=== PATIENT | female | born 1990 | race Caucasian/White ===

== ENCOUNTER 2018-04-28 07:16 | Outpatient (RCR) | payer MEDICAID, SELFPAY ==
--- NOTE | 2018-04-28 08:02 | PTTR_ITS ---
DATE: 04/28/18 SUBJECTIVE: Lori complains of intermittent fascial pain which is generally occurs when she is stressed and complaints with yawning and pain with yawning or chewing. Her boyfriend does not note that she is grinding during the night. 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 OBJECTIVE: She saw Dr. Diggs recently and he encouraged her to continue to wear her oral splint including when she is eating. Manual therapy: ([id number]). Her cervical spine movements are non irritable with some mild end range drawing throughout the corresponding soft tissue stretch. OA flexion +10* and her mandibular opening is 40 mm with some mild mandibular deviation to the (R) at end range. Protrusion is non painful. Side gliding to the (R) with some mild (R) fascial discomfort. She has some increased tone throughout the (L) sub occipital area otherwise non tender throughout the cervical region. She is hypomobile with PA glides to the thoracic spine. Her teratoids and masseters are hyper tonic (B) and I clear theses with marques strain counter strain techniques and show her how to perform this at home. I also clear out the cervical spine with manual traction, segmental gliding and AAROM, muscle energy techniques and side bending rotation. Direct treatment time: 35 minutes Total treatment time: 35 minutes ASSESSMENT: I have not seen Olya for at least 6 weeks now and she has been doing relatively well since when I saw her in the past. She practices yoga on youtube a couple times per week and I encourage her to continue to perform this along with some meditation and some diaphragmatic breathing and core strengthening exercises. PLAN: As noted above have her call if she needs further assistance.
== END 2018-05-20 23:59 | disposition home or self-care (01) ==
LOC: PT 07:16
PROVIDERS: PCP Internal Medicine; Referring Provider Dentist Oral and Maxillofacial Pathology; Visit Provider Dentist Oral and Maxillofacial Pathology
DX: M24.10 Other articular cartilage disorders, unspecified site (principal); M79.1 Myalgia
CPT/HCPCS: 97140

== ENCOUNTER 2018-12-07 15:34 | Emergency (ER) | payer OTHER, SELFPAY ==
[2018-12-07 15:38] VITALS: BP 122/65; PULSE 68; RESP 12; TEMP 37.3; O2SAT 98
--- NOTE | 2018-12-07 15:51 | ED.GENADUL_ITS ---
Discharge Plan Disposition Patient Disposition: HOME Condition: Improving Discharge Details Chief Complaint: Orthopedic Clinical Impression: Closed fracture distal radius and ulna Primary Care Provider: Sky Jensen ED Provider: Kenneth Colorado Home Meds and New Rx's Prescriptions: No Action dextroamphetamine-amphetamine [Adderall] 10 MG tablet 10 mg PO DAILY RF: 0 calcium carbonate [Tums] 200 MG tablet,chewable 200 mg PO PRN PRNRF: 0 Discharge Instructions Instructions: Wrist Fracture in Adults (ED) Additional Instructions: 1. Drink plenty of fluids. 2. Continue all medications as prescribed. 3. Acetaminophen 1000mg every 4 hours (up to 5 time a day) and/or ibuprofen 600mg every 6 hours as needed for fever or pain. 4. Wear splint until orthopedic evaluation. Ice and elevate arm when possible. 5. Follow-up tomorrow with orthopedics Return to the Emergency Department (ED) if your condition worsens, does not improve as expected, or for ANY other concerns. Specifically, return if you have new or uncontrolled pain, worsening fever, difficulty breathing, vomiting, or are unable to drink fluids. Referrals: Steve Rios MD [ [facility] STAFF PHYSICIAN] - Discharge Data Discharge Date/Time-TO BE ENTERED AT DEPARTURE: 12/07/18 16:55 Medical Decision Making Presents for evaluation of an isolated injury to the left wrist after falling while snowboarding. Exam and imaging significant for a nondisplaced distal radius fracture and ulnar styloid fracture. Placed in a plaster volar splint with dorsal slab. Discharge the plan for OTC analgesia, ice/elevation, and outpatient orthopedic follow-up. Pt evaluated immediately prior to discharge with improved symptoms, normal vital signs, and tolerating PO. The patient feels appropriate for discharge home. Discussed clinical/diagnostic findings. Discharged with a clear plan for outpatient follow up. Given usual and customary return instructions prior to discharge. Medical Records Medical records reviewed: Yes I reviewed the patient's medical records. Imaging Data Radiologic Study: Attestation: I personally reviewed and interpreted this imaging study as follows: Imaging: X-Ray (Left wrist) My impression: Nondisplaced fractures of distal radius and the tip of the ulnar styloid. Interpreted independently and contemporaneously by myself Radiologist's impression: Same HPI 28-year-old with a history of GERD, ADHD. Presents with left wrist pain after falling while snowboarding. He was helmeted and denies significant head injury, neck pain, back pain, or other extremity injury. Has significant pain and swelling on the radial aspect of the left wrist with mild subjective pain along the ulnar forearm. Denies significant elbow or shoulder pain. Denies loss of motion or loss of sensation distally although she notes increased distal radius pain with finger flexion/extention. General Date/Time Provider Initiated Documentation: 12/07/18 15:46 . Related Data Home Medications Medication Instructions Recorded Confirmed dextroamphetamine-amphetamine 10 mg PO DAILY tab-cap NS 10/29/14 12/07/18 [Adderall 10 Mg Tablet] calcium carbonate [Tums] 200 mg PO PRN PRN 11/09/14 12/07/18 Allergies Allergy/AdvReac Type Severity Reaction Status Date / Time kiwi Allergy Severe Hives Unverified 12/07/18 15:42 lidocaine Allergy Severe Itching Unverified 12/07/18 15:42 adhesive Allergy Intermediate Topical Unverified 12/07/18 15:42 Irritation lactose Allergy Unknown Unverified 12/07/18 15:42 ibuprofen AdvReac Intermediate bloody nose Unverified 12/07/18 15:42 General Stated Complaint: Orthopedic JUSTO: 4 Review of Systems Review of Systems All systems reviewed & are unremarkable except as noted in HPI and below Musculoskeletal Reports deformity (Mild swelling at the distal radial wrist), Reports joint swelling (Radial left wrist) and Reports limited range of motion PFSH Medical History ADHD (attention deficit hyperactivity disorder) GERD (gastroesophageal reflux disease) Surgical History Dilation and curettage Ligation of fallopian tube Glenn Fundoplication Social History Smoking/Tobacco Use Status: Current every day Drug use: Occasionally Do you feel safe at home: Yes Do you feel safe in your relationship?: Yes Exam Narrative Exam Narrative: Nursing note and vital signs have been reviewed and noted. GENERAL: alert, active, no acute distress, well -hydrated, well-nourished HEENT: atraumatic/normocephalic, PERRLA, EOMI, conjunctiva clear, external ears/canals normal, nasal mucosa normal NECK: supple, full range of motion CARDIOVASCULAR: nl pulses, no edema PULMONARY: nl effort, no audible wheezing or stridor ABDOMEN: non-distended EXTREMITY: normal muscle tone, all joints with FROM and no deformity except for the left wrist: Local swelling and tenderness at the distal radius. No significant dorsal deformity of the wrist. Mild tenderness along the mid ulna with no significant ecchymosis, abrasion, or deformity. No elbow or shoulder tenderness. Normal neurovascular exam distal to the injury. NUERO: normal mentation, moving all extremities, normal stance and gait, PSYCH: alert and oriented SKIN: no new rashes or lesions Course Vital Signs Temperature 99.1 F 12/07/18 15:38 Pulse 68 12/07/18 15:38 Respiratory Rate 12 12/07/18 15:38 Blood Pressure 122/65 12/07/18 15:38 Pulse Oximetry 98 12/07/18 15:38 Temperature 99.1 F 12/07/18 15:38 Temperature Source Temporal Artery Scan 12/07/18 15:38 Pulse 68 12/07/18 15:38 Respiratory Rate 12 12/07/18 15:38 Respiratory Effort Non-Labored 12/07/18 15:41 Blood Pressure 122/65 12/07/18 15:38 Blood Pressure Position Sitting 12/07/18 15:38 Pulse Oximetry 98 12/07/18 15:38 Oxygen Delivery Method Room Air 12/07/18 15:38 Oxygen Flow Rate 0 12/07/18 15:38 Pain Level 8 12/07/18 15:38 Procedures Orthopedic Splinting/Casting Injury #1: Side: left Upper Extremity Injury Location: wrist Upper Extremity Immobilizer: sling/shoulder immobilizer (sling) and volar spint (With dorsal slab; plaster and Webril)
--- NOTE | 2018-12-07 15:52 | DI.RAD_ITS ---
SYMPTOM/DIAGNOSIS: FELL, PAIN, SWELLING LEFT WRIST: There is a nondisplaced fracture involving the distal radius and ulnar styloid. There is no dislocation. LEFT FOREARM: The images reveal a nondisplaced intra-articular fracture of the distal radius and a nondisplaced fracture of the tip of the ulnar styloid.
[2018-12-07] MEDS: Acetaminophen 500 MG TAB 1000 MG PO (16:05)
--- NOTE | 2018-12-07 16:16 | DI.VRAD_ITS ---
EXAM: XR Left Forearm, 2 Views EXAM DATE/TIME: 12/07/2018 3:56 PM CLINICAL HISTORY: 28 years old, female; Pain; Wrist; Left; Patient HX: Left wrist pain after fall while skiing today. Pain and swelling left wrist. TECHNIQUE: Imaging protocol: XR Left forearm 2 views. COMPARISON: No relevant prior studies available. FINDINGS: Bones/joints: Nondisplaced fracture of the distal radius with intra-articular extension. Nondisplaced fracture of the tip of the ulnar styloid. Soft tissues: Swelling of the wrist soft tissues. IMPRESSION: Nondisplaced fractures of the distal radius and ulnar styloid. Dictated and Authenticated by: Papi West MD. Ordering:GUERRERO Cooper MD
--- NOTE | 2018-12-07 16:17 | DI.VRAD_ITS ---
EXAM: XR Left Wrist Complete, 3 or more Views EXAM DATE/TIME: 12/07/2018 3:56 PM CLINICAL HISTORY: 28 years old, female; Pain; Wrist; Left; Patient HX: Left wrist pain after fall while skiing today, pain and swelling. TECHNIQUE: Imaging protocol: XR Left wrist 3 or more views. COMPARISON: No relevant prior studies available. FINDINGS: Bones/joints: Nondisplaced fracture of the distal radius metaphysis with extension into the distal radius articular surface. Nondisplaced fracture of the tip of the ulnar styloid. Soft tissues: Swelling of the wrist soft tissues. IMPRESSION: Nondisplaced fractures of the distal radius and tip of the ulnar styloid. Dictated and Authenticated by: Papi West MD. Ordering:GUERRERO Cooper MD
--- NOTE | 2018-12-07 16:57 | NUR.NOTE ---
patient refused splint.
== END 2018-12-07 16:55 | disposition home or self-care (01) ==
PROVIDERS: Emergency Provider Emergency Medicine; PCP Internal Medicine
DX: S52.515A Nondisplaced fracture of left radial styloid process, initial encounter for closed fracture (principal); S52.592A Other fractures of lower end of left radius, initial encounter for closed fracture; V00.311A Fall from snowboard, initial encounter
CPT/HCPCS: 25600; 73090; 73110

== ENCOUNTER 2019-01-03 10:07 | Outpatient (CLI) | payer OTHER, SELFPAY ==
--- NOTE | 2019-01-03 09:55 | DI.RAD_ITS ---
SYMPTOM/DIAGNOSIS: F/U FRACTURE LEFT WRIST: A nondisplaced fracture of the distal radial metaphysis enters the radial carpal joint. The carpal bones appear intact.
== END 2019-01-03 10:27 ==
PROVIDERS: PCP Internal Medicine; Visit Provider Orthopaedic Surgery
DX: S52.515D Nondisplaced fracture of left radial styloid process, subsequent encounter for closed fracture with routine healing (principal)
CPT/HCPCS: 73110

== ENCOUNTER 2020-07-01 12:04 | Outpatient (REF) | payer MEDICAID, SELFPAY ==
[2020-07-04 15:21] LABS: Patient Race White; SARS-CoV-2 RNA Undetected (Undetected); SARS-CoV-2 Specimen Source Nasal
== END 2020-07-01 12:24 ==
LOC: NCHCN 12:04
PROVIDERS: PCP Internal Medicine; Visit Provider Physician Assistant
DX: Z11.59 Encounter for screening for other viral diseases (principal)
CPT/HCPCS: U0003

== ENCOUNTER 2020-07-25 10:26 | Outpatient (REF) | payer MEDICAID, SELFPAY ==
[2020-07-28 11:39] LABS: SARS-CoV-2 RNA Not Detected (NotDetected); SARS-CoV-2 RNA Source Nasal/Nares
== END 2020-07-25 10:46 ==
LOC: NCHCN 10:26
PROVIDERS: PCP Internal Medicine; Visit Provider Nurse Practitioner Family
DX: Z20.828 Contact with and (suspected) exposure to other viral communicable diseases (principal)
CPT/HCPCS: U0003

== ENCOUNTER 2020-09-25 14:50 | Outpatient (REF) | payer MEDICAID, SELFPAY ==
[2020-09-27 09:44] LABS: COVID-19 RT-PCR Result NEGATIVE (Negative)
== END 2020-09-25 15:10 ==
LOC: NCHCN 14:50
PROVIDERS: PCP Internal Medicine; Visit Provider Physician Assistant
DX: Z20.828 Contact with and (suspected) exposure to other viral communicable diseases (principal)
CPT/HCPCS: U0003

== ENCOUNTER 2021-06-09 03:56 | Outpatient (CLI) | payer MEDICAID, SELFPAY ==
--- NOTE | 2021-06-10 12:46 | W.PFT ---
Date of service: 06/09/21 Time of Service: 10:19 Pulmonary Function Test Result Requesting Provider Milka Monge Indications: N95 fit test clearance Interpretation Spirometry: There is no airflow limitation Impression Normal spirometry Clinical Correlation therefore is recommended.
== END 2021-06-09 03:57 | disposition home or self-care (01) ==
PROVIDERS: PCP Internal Medicine; Visit Provider Nurse Practitioner Family
DX: Z46.89 Encounter for fitting and adjustment of other specified devices (principal)
CPT/HCPCS: 94010

== ENCOUNTER 2021-06-09 20:00 | Outpatient (REF) | payer MEDICAID, SELFPAY ==
[2021-06-11 17:14] LABS: COVID-19 RT-PCR UVMMC Result Negative (Negative)
== END 2021-06-09 20:01 | disposition home or self-care (01) ==
LOC: LBN 20:00
PROVIDERS: PCP Internal Medicine; Visit Provider Physician Assistant
DX: Z20.822 Contact with and (suspected) exposure to COVID-19 (principal)
CPT/HCPCS: U0003

== ENCOUNTER 2021-06-16 19:29 | Outpatient (REF) | payer MEDICAID, SELFPAY ==
[2021-06-18 15:45] LABS: COVID-19 RT-PCR UVMMC Result Negative (Negative)
== END 2021-06-16 19:30 | disposition home or self-care (01) ==
LOC: NCHCN 19:29
PROVIDERS: PCP Internal Medicine; Visit Provider Physician Assistant
DX: Z20.822 Contact with and (suspected) exposure to COVID-19 (principal)
CPT/HCPCS: U0003

== ENCOUNTER 2021-08-29 07:35 | Emergency (ER) | payer MEDICAID, SELFPAY ==
[2021-08-29 07:43] VITALS: BP 125/82; PULSE 60; TEMP 36.9; O2SAT 99
[2021-08-29 08:02] LABS: Bilirubin Negative (Negative); Blood Trace-intact (Negative); Clarity Clear (Clear); Glucose Negative (Negative); Ketones Negative (Negative); Leukocyte Esterase Trace (Negative); Nitrite Negative (Negative); Specific Gravity >= 1.030 (1.005-1.025); Urobilinogen 0.2 EU/dL (Up TO 0.2)
--- NOTE | 2021-08-29 08:02 | DI.US_ITS ---
Exam(s) US ABDOMEN LIMITED EXAM: US ABDOMEN LIMITED CLINICAL HISTORY: RUQ/Epoigastric pain TECHNIQUE: Ultrasound abdomen performed using standard protocol. COMPARISON: No exams were available for comparison FINDINGS: PANCREAS: Normal where visualized. LIVER: Normal. Hepatopedal flow in the Portal Vein. The liver measures 16 cm long. GALLBLADDER: No evidence of cholelithiasis. No evidence of wall thickening. No pericholecystic fluid identified. BILIARY SYSTEM: Common bile duct measures < 7 mm. No intrahepatic biliary ductal dilation. RAHMAN'S SIGN: Negative. Right kidney: Right kidney is a normal configuration. No evidence of renal calculi. No evidence of h ydronephrosis. No renal mass or cyst identified. ASCITES: None seen. IMPRESSION: Normal right upper quadrant ultrasound. DATA REPOSITORY:
--- NOTE | 2021-08-29 08:05 | ED.GENADUL_ITS ---
Discharge Plan Disposition Patient Disposition: HOME Condition: Improving Discharge Details Clinical Impression: Acute epigastric pain Primary Care Provider: Sky Jensen ED Provider: Italo Maxwell Home Meds and New Rx's Prescriptions: New pantoprazole [Protonix] 20 mg tablet,delayed release (DR/EC) 20 mg PO BID 14 Days Qty: 28 RF: 0 Discharge Instructions Instructions: Abdominal Pain (ED) Additional Instructions: We will ask our care management team to arrange a follow-up for you in general surgery clinic next week. Observe a bland diet; avoiding fatty, fried, spicy, heavy protein dishes. Take Protonix as prescribed twice daily. You may also use Tums if needed for persistent discomfort. These may turn your stool black. Return develop a fever, persistent and recurrent abdominal pain, vomiting, or any other acute concerns. Medical Decision Making 31-year-old female presents from home. She has had 3 to 4 days of intermittent episodes of epigastric and right upper quadrant abdominal pain that is mostly worsened/brought on by eating. She has been nauseated but without significant emesis. She has not had a fever or chills. She is immunized against COVID-19, worse on the inpatient wards, denies respiratory symptoms. Patient is status post appendectomy, hiatal hernia repair, ligation of fallopian tubes. She arrives pleasant, alert and interactive, afebrile. Her exam reveals right upper quadrant and epigastric biliary colic, cholecystitis, GERD. Patient IV access established, given parenteral analgesia, antiemetic and PPI. Referred for right upper quadrant/abdominal ultrasound. Patient's labs are reassuring and without significant finding including normal CBC, comprehensive panel and lipase. Urinalysis appears contaminated. CT imaging was obtained after ultrasound unremarkable. The CT is also unremarkable. Patient is improved following medications. Discussed with patient I feel this is either gastritis or akinesis of the gallbladder. We will arrange for follow-up in surgery clinic for recheck and I will place her on 2 weeks of twice daily PPI. She will observe a bland diet and return for repeat evaluation should she have recurrent pain, fever, or any other acute concerns. HPI General Mode of arrival: ambulatory . Date/Time Provider Initiated Documentation: 08/29/21 07:50 . Limitations to Documentation: no limitations . Information obtained by: patient . History of Present Illness 31 year old F presents to the emergency department with the chief complaint of Right upper quadrant pain, described as moderate, and is localized to the abdomen. Patient reports no radiation. Patient started experiencing this day(s) and it has been intermittent. No relieving factors improve symptom(s), Eating worsens symptoms . Patient notes loss of appetite and other (Nauseated); denies fever/chills. Patient did receive the following treatments prior to arrival, none Related Data Home Medications Medication Instructions Recorded Confirmed pantoprazole [Protonix] 20 mg PO BID 14 Days #28 tab 08/29/21 Previous Rx's Medication Instructions Recorded pantoprazole [Protonix] 20 mg PO BID 14 Days #28 tab 08/29/21 Allergies Allergy/AdvReac Type Severity Reaction Status Date / Time kiwi Allergy Severe Hives Unverified 08/29/21 07:48 lidocaine Allergy Severe Itching Unverified 08/29/21 07:48 adhesive Allergy Intermediate Topical Unverified 08/29/21 07:48 Irritation lactose Allergy Unknown Unverified 08/29/21 07:48 ibuprofen AdvReac Intermediate bloody nose Unverified 08/29/21 07:48 General Stated Complaint: Abd Prob JUSTO: 3 Review of Systems Narrative: No fever or chills. No cough, change to taste or smell. 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 Immunized against. 8 systems reviewed and otherwise negative PFSH All Active Problems (Updated 08/29/21 @ 10:17 by Italo Maxwell MD) Acute epigastric pain (Acute) Closed nondisplaced fracture of styloid process of left radius (Acute) Medical History (Updated 08/29/21 @ 10:17 by Italo Maxwell MD) ADHD (attention deficit hyperactivity disorder) GERD (gastroesophageal reflux disease) Surgical History (Updated 08/29/21 @ 08:06 by Italo Maxwell MD) Dilation and curettage Ligation of fallopian tube Glenn Fundoplication S/P appendectomy Social History Smoking/Tobacco Use Status: Former Tobacco Use Smoking risk assessment performed?: Yes Alcohol Intake: current Alcohol Intake frequency: holidays/special occasions only Alcohol type: beer Drug use: Occasionally Substance use type: marijuana Do you feel safe at home: Yes Do you feel safe in your relationship?: Yes Exam Narrative Exam Narrative: GEN: awake, alert, oriented 3. Pleasant, well groomed, interactive. HEAD: Normocephalic, atraumatic ENT: Mucous membranes moist, oropharynx unremarkable, External ear exam unremarkable EYES: PERRL, EOMI NECK: Full ROM, no KAYLA, no menigismus CHEST/RESP: Nontender, clear to auscultation bilateral, no wheeze/rhonchi/rales CARDIOVASCULAR: RRR, no murmur, rub jessica. 2+ Rad pulse bilateral ABDOMEN: Soft, epigastric and right upper quadrant tenderness. Cessation of breathing with deep inspiration due to pain, no mass. +Bowel sounds EXT: Full ROM, no edema, no rash Neuro: Grossly normal neurologic exam, conversant, interactive. Psych: Speech fluent, thoughts congruent, affect normal Course Vital Signs Vital signs: Vital Signs Temperature 36.9 C 08/29/21 07:43 Pulse 60 08/29/21 07:43 Blood Pressure 125/82 08/29/21 07:43 Pulse Oximetry 99 08/29/21 07:43 Temperature 36.9 C 08/29/21 07:43 Temperature Source Temporal Artery Scan 08/29/21 07:43 Pulse 60 08/29/21 07:43 Respiratory Effort Non-Labored 08/29/21 07:46 Blood Pressure 125/82 08/29/21 07:43 Blood Pressure Position Sitting 08/29/21 07:43 Pulse Oximetry 99 08/29/21 07:43 Oxygen Delivery Method Room Air 08/29/21 07:43 Oxygen Flow Rate 0 08/29/21 07:43 Pain Level 6 08/29/21 07:43 Lab/Test Results Lab/Test Results: Laboratory Tests Range/Units 08/29/21 07:53 Urine Color (Yellow) Yellow Urine Clarity (Clear) Clear Urine pH (5-8) 7.0 Ur Specific [place] (1.005-1.025) >= 1.030 H Urine Protein (Negative) mg/dL Negative Urine Ketones (Negative) mg/dL Negative Urine Blood (Negative) Trace-intact H Urine Nitrite (Negative) Negative Urine Bilirubin (Negative) Negative Urine Urobilinogen (Up TO 0.2) EU/dL 0.2 Ur Leukocyte Esterase (Negative) Trace H Urine Glucose (Negative) mg/dL Negative POC- Test(urine) Negative PAWSS Have you Been Recently Intoxicated or Drunk Within the Last 30 days?: No Have you Ever Experienced Previous Episodes of Alcohol Withdrawal?: No Have you ever Experienced Withdrawal Seizures?: No Have you ever Experienced Delirium Tremens(DT)s?: No Have you ever undergone Alcohol Rehabilitation Treatment (i.e, inpt ot outpatient treatment programs)?: No Have you ever Experienced Blackouts?: No Have you ever Combined Alcohol with other Downers within the last 90 days?: No Have you ever Combined Alcohol with any other Substance of Abuse during the last 90 days?: No Positive Blood Alcohol level on Presentation? [PCS.BAL]: No Evidence of Increased Autonomic Activity (i.e. HR>120, tremor, sweating, agitation, nausea)?: No Result: 0
[2021-08-29 08:10] LABS: Bacteria Few HPF (Negative); Crystals Negative HPF (Negative); Epithelial Cells Moderate HPF (Negative); Mucus Trace (Negative); RBC 0-2 HPF (0-2); WBC 0-2 HPF (0-5)
[2021-08-29 08:11] LABS: C & S Indicated? No; Casts Negative LPF (Negative)
[2021-08-29] MEDS: Normal Saline 1,000 ML 1000 ML IV (08:25)
[2021-08-29] MEDS: Pantoprazole 40 MG VIAL IVP (08:25)
[2021-08-29] MEDS: Normal Saline Flush 10 ML SYR IVP (08:25)
[2021-08-29] MEDS: Ondansetron 4 MG/2 ML VIAL IVP (08:26)
[2021-08-29 08:28] LABS: Abs Immature Grans 0.02 10^3/uL (0.0-0.06); Absolute Basophil Count 0.06 10^3/uL (0.0-0.2); Absolute Eosinophil Count 0.04 10^3/uL (0.0-0.7); Absolute Lymphocyte Count 1.48 10^3/uL (1.2-3.4); Absolute Monocyte Count 0.52 10^3/uL (0.1-0.8); Absolute Neutrophil Count 6.22 10^3/uL (1.2-6.7); Basophils % 0.7; Eosinophils % 0.5; HGB 13.8 g/dL (11.2-15.7); Immature Grans % 0.2; Lymphocytes % 17.7; MCH 30.5 pg (27.0-33.0); MCHC 32.9 % (32.0-36.0); MCV 92.7 fL (80-95); MPV 9.9 fL (8.0-11.0); Monocytes % 6.2; Neutrophils % 74.7; Nucleated RBC 0 %; Platelet Count 257 10^3/uL (130-400); RBC 4.53 10^6/uL (3.93-5.22); RDW 12.1 % (11.7-14.6); RDW-SD 41.7 fL; WBC 8.34 10^3/uL (4.4-10.8)
--- NOTE | 2021-08-29 08:45 | DI.CT_ITS ---
Exam(s) CT ABDOMEN PELVIS W EXAM: CT ABDOMEN PELVIS W CLINICAL HISTORY: RUQ/Epigastric pain TECHNIQUE: Imaging Protocol: Axial computed tomography images with coronal and sagittal reformatted images were created and reviewed CONTRAST MATERIAL: Intravenous: Omnipaque 350 Contrast volume:100 mL Oral: No COMPARISON: No exams were available for comparison FINDINGS: The examination is limited due to patient motion artifact. ABDOMEN: Lung Bases: Normal where visualized. Liver: Normal density. No measurable mass. Portal, Superior Mesenteric, and Splenic Veins: Unremarkable. Gallbladder and Biliary Tract: No radiodense calculus or dilation. Pancreas: Normal density, no abnormal calcifications or inflammatory process. Spleen: Normal. Adrenals: No masses seen. Kidneys: Normal size, contour and axis. No radiodense stones or obstructive uropathy. No masses seen. Abdominal Aorta: Abdominal portion non-dilated. Bowel: No obstruction or bowel wall thickening. No evidence of appendicitis. Postsurgical changes ar e seen at the gastroesophageal junction. Peritoneal Cavity: No ascites, collection or mesenteric inflammatory response. No free air. Lymph Nodes: Within normal limits. Bones: Within normal limits for the patient's age. Soft Tissues: There is a small fat containing umbilical hernia. PELVIS: Bladder: Symmetric distention, no gross wall thickening. Reproductive Organs: Unremarkable as visualized. Lymph Nodes: Within normal limits. Bones: Within normal limits for the patient's age. IMPRESSION: 1. No acute abdominal or pelvic process. 2. Results of this exam have been verbally communicated with provider. RADIATION DOSE DELIVERED: 979.22mGy.cm Total DLP DATA REPOSITORY: All CT scans at this facility are submitted to the National Radiology Data Registry (NRDR) Dose Index Registry (DIR) with the [employer] (ACR). RADIATION OPTIMIZATION: All CT scans at this facility use at least one of these dose optimization te chniques: automated exposure control; mA and/or kV adjustment per patient size (includes targeted exa ms where dose is matched to clinical indication); or iterative reconstruction.
[2021-08-29 08:48] LABS: ALT 24 U/L (14-59); AST 13 U/L (15-37); Albumin 4.7 g/dL (3.4-5.0); Alkaline Phosphatase 68 U/L (46-116); Anion Gap 9.5 mmol/L (3-11); BUN 9 mg/dL (7-18); Bilirubin, Total 0.4 mg/dL (0.2-1.0); CO2 26.5 mmol/L (21.0-32.0); CREATININE 0.8 mg/dL (0.55-1.02); Chloride 104 mmol/L (98-107); Glucose 103 mg/dL (74-106); Lipase 197 U/L (73-393); Potassium 3.9 mmol/L (3.5-5.1); Sodium 140 mmol/L (136-145); Total Protein 8.1 g/dL (6.4-8.2)
[2021-08-29] MEDS: Omnipaque 350 MG/ML 100 ML BTL IJ (09:37)
--- NOTE | 2021-08-29 10:22 | NUR.NOTE ---
Nursing Note: REFERAL FAXED TO [address] [id number] FOR EPIGASTRIC PAIN NEXT WEEK.
[2021-08-29 10:28] VITALS: BP 112/73; PULSE 74; RESP 16; TEMP 36.9; O2SAT 100
--- NOTE | 2021-08-29 11:30 | PDOC.ERCMACT ---
- If Service Date Differs Date of service: 08/29/21 Time of Service: 11:30 Care Management Activity Note Lori was seen in the ED for acute epigastric pain. She was discharged with a prescription for pantoprazole 20 mg PO BID 14 days. GEORGE then receives a request from [facility] for a 90 day supply of pantoprazole as opposed to the 14 days. This is discussed with Dr. Maxwell, ED provider, who signs off on the request. CM faxes the signed request form back to [facility].
--- NOTE | 2021-08-31 08:19 | NUR.NOTE ---
Nursing Note: Patient called stating that she was seen for epigastric pain on Wednesday. Started with a fever yesterday, Wednesday, taking tylenol. Spoke with Dr. Kurtz, GALI Thompson and told patient we were unable to give advice over the phone, she can come back to the ED if she is feeling worse, wait until tomorrow, Wednesday to call her PCP or speak with the provider on for telephone calls. She elected to speak with the provider on for telephone calls and the call was forwarded to [place]. Kate Mclain
== END 2021-08-29 10:31 | disposition home or self-care (01) ==
PROVIDERS: Emergency Provider Emergency Medicine; PCP Internal Medicine
DX: R10.13 Epigastric pain (principal); R11.0 Nausea; R10.11 Right upper quadrant pain
CPT/HCPCS: 36415; 80053; 81025; 83690; 96361; 96374; 96375; 99285; 74177; 76705; 81003; 81015; 85025; 99284; J2405; J3490

== ENCOUNTER 2021-08-31 10:37 | Inpatient (IN) | payer MEDICAID, SELFPAY ==
[2021-08-31] VITALS (20 sets, daily range): BP systolic 95–132; BP diastolic 46–82; PULSE 55–77; RESP 11–25; TEMP 36.8–38.1; O2SAT 97–100
--- NOTE | 2021-08-31 11:00 | DI.CT_ITS ---
Exam(s) CT CHEST PE ABD PELVIS W EXAM: CT CHEST PE ABD PELVIS W CLINICAL HISTORY: fever, pleuritic upper abdominal pain. TECHNIQUE: Imaging Protocol: Axial CT angiography was performed with multi-slice acquisition and mu lti-planar and/or 3D reconstructions. CONTRAST MATERIAL: Intravenous: Omnipaque 350 Contrast volume:100 mL COMPARISON: CT CT ABDOMEN PELVIS W from 08/29/2021 FINDINGS: CHEST: Tracheobronchial tree: Patent where visualized. Pulmonary parenchyma: No consolidation or dominant measurable mass. No architectural distortion. Ther e is a 4 mm triangular nodule associated with the right minor fissure. There is a 3 mm nodule in the posterior aspect of the right upper lobe. Pulmonary Arteries: No evidence of filling defect to suggest pulmonary emboli. Mediastinum and Lila: No dominant adenopathy or fluid collection. The esophagus is unremarkable. Pleura: No effusion or pneumothorax. Heart: The heart is not dilated. No coronary artery calcifications are seen. No pericardial effusion. Aorta: Thoracic aorta non-dilated. No evidence of dissection. Bones: Within normal limits for the patient's age. Soft tissues: Unremarkable. ABDOMEN: Liver: Normal density. No measurable mass. Portal, Superior Mesenteric, and Splenic Veins: Unremarkable. Gallbladder and Biliary Tract: No radiodense calculus or dilation. Pancreas: Normal density, no abnormal calcifications or inflammatory process. Spleen: Normal. Adrenals: No masses seen. Kidneys: Normal size, contour and axis. No radiodense stones or obstructive uropathy. No masses seen. Abdominal Aorta: Abdominal portion non-dilated. No evidence of aneurysm or dissection. Celiac axis and mesenteric arteries: No occlusion or significant stenosis. Renal arteries: No occlusion or significant stenosis. Bowel: No obstruction or bowel wall thickening. No evidence of appendicitis. Peritoneal Cavity: No ascites, collection or mesenteric inflammatory response. No free air. Lymph Nodes: Within normal limits. Bones: Within normal limits for the patient's age. Soft Tissues: Unremarkable. PELVIS: Bladder: Symmetric distention, no gross wall thickening. Reproductive Organs: Unremarkable as visualized. Lymph Nodes: Within normal limits. Bones: Within normal limits. IMPRESSION: 1. No evidence pulmonary embolism, thoracic aortic dissection or aneurysm. 2. 3 mm right upper lobe pulmonary nodule. 3. Unremarkable CT angiography of the abdomen. 4. No acute abdominal or pelvic process. Incidental Findings RADIATION DOSE DELIVERED: 1,292.66mGy.cm Total DLP DATA REPOSITORY: All CT scans at this facility are submitted to the National Radiology Data Registry (NRDR) Dose Index Registry (DIR) with the [employer] (A[employer]). RADIATION OPTIMIZATION: All CT scans at this facility use at least one of these dose optimization te chniques: automated exposure control; mA and/or kV adjustment per patient size (includes targeted exa ms where dose is matched to clinical indication); or iterative reconstruction.
[2021-08-31 11:03] LABS: Lactate 0.8 mmol/L (0.6-1.4)
[2021-08-31 11:06] LABS: Source Nasal/Nares
--- NOTE | 2021-08-31 11:12 | ED.GENADUL_ITS ---
Discharge Plan Disposition Patient Disposition: [facility] INPATIENT Condition: Stable Discharge Details Chief Complaint: Abd Prob Clinical Impression: Abdominal pain, Fever Primary Care Provider: Sky Jensen ED Provider: Jasson Kurtz Home Meds and New Rx's Prescriptions: No Action pantoprazole [Protonix] 20 mg tablet,delayed release (DR/EC) 20 mg PO BID 14 Days Qty: 28 RF: 0 Medical Decision Making 31 yo female who has no known chronic medical problems, has had a prior appendectomy in the past, comes in with right upper abdominal pain that started on Wednesday. She was seen in the ED on 08/[address] and referred to general surgery as an outpatient. She states yesterday she started to have a fever to 100.8 and continued today so came back. She denies any urinary symptoms, vomit, respiratory symptoms. She is febrile here with stable vitals. She is tender with positive to's sign on exam and states that deep breaths make the pain worse. Given her fever and pain in the abdomen concern for cholecystitis and given pleuritic nature also possible PE, will obtain labs and ct for pe and ct abd/pelvis. She denies any ivdu and no rashes or lesions to s uggest endocarditis. labs and imaging unremarkable, has a lung nodule which I informed her of. She is still significantly tender in the ruq. Unclear etiology for her pain and fever, discussed with general surgery who is going to admit for observation and potential further testing Differential Diagnosis Differential Diagnosis: cholecystitis, pancreatitis, PE Medical Records Medical records reviewed: Yes I reviewed the patient's medical records. Imaging Data Radiologic Study: Attestation: I personally reviewed and interpreted this imaging study as follows: Imaging: CT Scan Radiologist's impression: IMPRESSION: No acute findings. Tiny right lung nodule represents a lung rads 2 lesion which should be followed in 1 year. Lab Data Lab results reviewed: Yes I reviewed the patient's lab results. HPI General Mode of arrival: ambulatory . Date/Time Provider Initiated Documentation: 08/31/21 10:45 . Limitations to Documentation: no limitations . Information obtained by: patient . History of Present Illness 31 year old F presents to the emergency department with the chief complaint of right upper abdominal pain, described as moderate, Quality is described as sharp, and is localized to the abdomen. Patient reports radiation to back. Patient started experiencing this day(s) (5) and it has been constant. No relieving factors improve symptom(s), No exacerbating factors reported . Patient notes fever/chills. Patient did receive the following treatments prior to arrival, none Related Data Home Medications Medication Instructions Recorded Confirmed pantoprazole [Protonix] 20 mg PO BID 14 Days #28 tab 08/29/21 08/31/21 Previous Rx's Medication Instructions Recorded pantoprazole [Protonix] 20 mg PO BID 14 Days #28 tab 08/29/21 Allergies Allergy/AdvReac Type Severity Reaction Status Date / Time kiwi Allergy Severe Hives Unverified 08/31/21 10:53 lidocaine Allergy Severe Itching Unverified 08/31/21 10:53 adhesive Allergy Intermediate Topical Unverified 08/31/21 10:53 Irritation lactose Allergy Unknown Unverified 08/31/21 10:53 ibuprofen AdvReac Intermediate bloody nose Unverified 08/31/21 10:53 banana Allergy Uncoded 08/31/21 10:54 General Stated Complaint: Abd Prob JUSTO: 3 Review of Systems All systems reviewed & are unremarkable except as noted in HPI and below Constitutional Constitutional: Denies weakness Cardiovascular Cardiovascular: Denies chest pain and Denies dyspnea Respiratory Respiratory: Denies cough and Denies dyspnea Gastrointestinal Gastrointestinal: Denies vomiting Genitourinary Genitourinary: Denies dysuria Neurologic Neurologic: Denies weakness PFSH All Active Problems (Updated 08/31/21 @ 13:42 by Jasson Kurtz MD) Acute epigastric pain (Acute) Abdominal pain (Acute) Fever (Acute) Closed nondisplaced fracture of styloid process of left radius (Acute) Medical History (Updated 08/31/21 @ 13:42 by Jasson Kurtz MD) ADHD (attention deficit hyperactivity disorder) GERD (gastroesophageal reflux disease) Surgical History (Updated 08/29/21 @ 08:06 by Italo Maxwell MD) Dilation and curettage Ligation of fallopian tube Glenn Fundoplication S/P appendectomy Social History Smoking/Tobacco Use Status: Former Tobacco Use Smoking risk assessment performed?: Yes Alcohol Intake: current Alcohol Intake frequency: holidays/special occasions only Alcohol type: beer Drug use: Occasionally Substance use type: marijuana Do you feel safe at home: Yes Do you feel safe in your relationship?: Yes Exam Const General: no acute distress Orientation: alert HENMT Head: normal to inspection Ears: external ears normal General nose exam: external nose normal Mouth: moist mucous membranes Eyes General: appearance normal, both eyes and all related structures Neck Neck: normal visual inspection Resp Effort & Inspection: normal respiratory effort and able to speak in complete sentences Cardio Rate: regular rate GI Palpation: soft and tender Skin General skin exam: no rashes or lesions noted Neuro General: patient alert and patient oriented x3 Extrem General: normal to inspection Psych Mental Status: mental status grossly normal Course Vital Signs Vital signs: Vital Signs Temperature 38.1 C H 08/31/21 10:48 Pulse 66 08/31/21 10:48 Respiratory Rate 24 08/31/21 10:48 Blood Pressure 123/76 08/31/21 10:48 Pulse Oximetry 98 08/31/21 10:48 Temperature 38.1 C H 08/31/21 10:48 Temperature Source Skin 08/31/21 10:48 Pulse 63 08/31/21 10:52 Pulse 66 08/31/21 10:53 Respiratory Rate 11 L 08/31/21 10:53 Respiratory Effort Non-Labored 08/31/21 10:48 Blood Pressure 123/76 08/31/21 10:52 Blood Pressure Mean 87 08/31/21 10:52 Blood Pressure Position Supine 08/31/21 10:48 Pulse Oximetry 99 08/31/21 10:53 Oxygen Delivery Method Room Air 08/31/21 10:48 Oxygen Flow Rate 0 08/31/21 10:48 Pain Level 7 08/31/21 10:48 Lab/Test Results Lab/Test Results: 08/31/21 11:08 Nasopharynx Influenza Types A,B Antigen - Pending 08/31/21 10:55 Blood Blood Culture - Pending 08/31/21 10:55 Blood Blood Culture - Pending Laboratory Tests Range/Units 08/31/21 08/31/21 10:55 11:00 VBG Lactate (0.6-1.4) mmol/L 0.8 COVID-19 Source Nasal/Nares
[2021-08-31] MEDS: Normal Saline 1,000 ML 1000 ML IV (11:15)
[2021-08-31] MEDS: Ondansetron 4 MG/2 ML VIAL IVP ×4 (11:17→23:40)
[2021-08-31 11:24] LABS: ALT 23 U/L (14-59); AST 15 U/L (15-37); Albumin 4.5 g/dL (3.4-5.0); Alkaline Phosphatase 64 U/L (46-116); Anion Gap 10.5 mmol/L (3-11); BUN 9 mg/dL (7-18); Bilirubin, Total 0.6 mg/dL (0.2-1.0); CO2 25.5 mmol/L (21.0-32.0); CREATININE 0.8 mg/dL (0.55-1.02); Calcium 8.9 mg/dL (8.5-10.1); Chloride 103 mmol/L (98-107); Glucose 97 mg/dL (74-106); Magnesium 2.2 mg/dL (1.8-2.4); Potassium 3.7 mmol/L (3.5-5.1); Sodium 139 mmol/L (136-145); Total Protein 7.6 g/dL (6.4-8.2)
[2021-08-31 11:29] LABS: Abs Immature Grans 0.09 10^3/uL (0.0-0.06); Absolute Basophil Count 0.07 10^3/uL (0.0-0.2); Absolute Eosinophil Count 0.09 10^3/uL (0.0-0.7); Absolute Lymphocyte Count 2.73 10^3/uL (1.2-3.4); Absolute Neutrophil Count 4.96 10^3/uL (1.2-6.7); Basophils % 0.8; Eosinophils % 1.1; HCT 37.9 % (36.0-46.0); HGB 12.9 g/dL (11.2-15.7); Immature Grans % 1.1; MCH 30.6 pg (27.0-33.0); MCV 89.8 fL (80-95); MPV 10.2 fL (8.0-11.0); Nucleated RBC 0 %; Platelet Count 253 10^3/uL (130-400); RBC 4.22 10^6/uL (3.93-5.22); RDW 11.9 % (11.7-14.6); RDW-SD 39.1 fL; WBC 8.54 10^3/uL (4.4-10.8)
[2021-08-31 11:34] LABS: TSH (W/Ref FT4) 3.02 uIU/mL (0.36-3.74)
[2021-08-31 11:46] LABS: Bilirubin Negative (Negative); Blood Moderate (Negative); Clarity Clear (Clear); Glucose Negative (Negative); Ketones 15 mg/dL (Negative); Leukocyte Esterase Negative (Negative); Nitrite Negative (Negative); Specific Gravity 1.025 (1.005-1.025); Urobilinogen 0.2 EU/dL (Up TO 0.2)
[2021-08-31 11:46] LABS: COVID-19 PCR Negative (Negative)
[2021-08-31 11:55] LABS: Bacteria Few HPF (Negative); C & S Indicated? No; Casts Negative LPF (Negative); Crystals Negative HPF (Negative); Epithelial Cells Rare HPF (Negative); Mucus Trace (Negative); WBC 0-2 HPF (0-5)
[2021-08-31] MEDS: Omnipaque 350 MG/ML 100 ML BTL IJ (12:16)
[2021-08-31] MEDS: Normal Saline Flush 10 ML SYR IVP ×2 (12:16→15:30)
--- NOTE | 2021-08-31 12:56 | DI.VRAD_ITS ---
PROCEDURE INFORMATION: Exam: CTA Chest With Contrast Exam date and time: 08/31/2021 11:13 AM Age: 31 years old Clinical indication: Other: Fever, pleuritic upper abdominal pain TECHNIQUE: Imaging protocol: Computed tomographic angiography of the chest with contrast. 3D rendering (Not supervised by radiologist): MIP and/or 3D reconstructed images were created by the technologist. Contrast material: OMNIPAQUE 350; Contrast volume: 100 ml; Contrast route: INTRAVENOUS (IV); COMPARISON: CT ABDOMEN PELVIS W 07/01/2021 09:29 FINDINGS: Pulmonary arteries: Normal. No pulmonary emboli. Aorta: Unremarkable. No aortic aneurysm. No aortic dissection. Lungs: Tiny 2-3 mm rounded nodular density is present in the right upper lobe. Lungs otherwise are clear with no infiltrate. Pleural spaces: Unremarkable. No pneumothorax. No pleural effusion. Heart: Unremarkable. No cardiomegaly. No pericardial effusion. Lymph nodes: Unremarkable. No enlarged lymph nodes. Bones/joints: Unremarkable. No acute fracture. Soft tissues: Unremarkable. IMPRESSION: No acute findings. Tiny right lung nodule represents a lung rads 2 lesion which should be followed in 1 year. PROCEDURE INFORMATION: Exam: CT Angiography Abdomen With Contrast Exam date and time: 08/31/2021 11:13 AM Age: 31 years old Clinical indication: Other: Fever, pleuritic upper abdominal pain TECHNIQUE: Imaging protocol: Computed tomographic angiography images of the abdomen with intravenous contrast material. 3D rendering (Not supervised by radiologist): MIP and/or 3D reconstructed images were created by the technologist. Contrast material: OMNIPAQUE 350; Contrast volume: 100 ml; Contrast route: INTRAVENOUS (IV); COMPARISON: CT ABDOMEN PELVIS W 07/01/2021 09:29 FINDINGS: Aorta: No aortic aneurysm. No aortic dissection. Celiac trunk and mesenteric arteries: No occlusion or significant stenosis. Renal arteries: No occlusion or significant stenosis. Liver: Normal. No mass. Gallbladder and bile ducts: Normal. No calcified stones. No ductal dilation. Pancreas: Normal. No ductal dilation. Spleen: Normal. No splenomegaly. Adrenals: Normal. No mass. Kidneys and ureters: Normal. No hydronephrosis. Stomach and bowel: Unremarkable. No obstruction. No mucosal thickening. Lymph nodes: Unremarkable. No enlarged lymph nodes. Intraperitoneal space: Unremarkable. No free air. No significant fluid collection. Reproductive: Uterus is retroflexed. Bones/joints: Unremarkable. No acute fracture. No dislocation. Soft tissues: Unremarkable. IMPRESSION: Unremarkable CTA abdomen. Dictated and Authenticated by: Italo Alejandra MD. Ordering:MORGAN Spaulding MD
--- NOTE | 2021-08-31 13:49 | HPE_ITS ---
Date of service: 08/31/21 Time of Service: 13:49 Assessment and Plan Assessment and plan (1) Abdominal pain: Status: Acute Assessment and plan: DIfferential infludes biliary dyskinesia vs acalculous cholecystitis vs gastroenteritis -NPO and IV fluids -If fevers persist will start IV abx as prophylaxis -Repeat AM labs including lipase and LFT's -NM HIDA scan ordered to assess for biliary dyskinesia -Consider repeating abdominal US or obtaining MRCP to better evaluate hepatobiliary system -Consider upper GI/barium swallow due to hx of jake to assess for reflux -Lovenox for DVT ppx -Protonix for GI ppx -Encourage ambulation Qualifiers: Abdominal location: right upper quadrant Qualified Code(s): R10.11 - Right upper quadrant pain History of Present Illness Consults Consult date: 08/31/21 Narrative: 31 year old female with right upper quadrant pain for the last 5 days. Reports feeling full after eating corn chowder after which she began experiencing right upper quadrant pain and nausea. Pain was initially dull then became sharp and worse with movement and deep breaths. She also reports fevers up to 101 relieved by Tylenol. She was seen in the ER on Wednesday and work up including labs, abdominal ultrasound and CT scan all of which were negative. She returned to the ER today with persistent symptoms. CT of the chest abdomen and pelvis was again done and within normal limits. Labs also within normal limits, still also without any neutrophil predo minance. Her last bowel movement was yesterday and normal, she did have 2 days of diarrhea prior to yesterday. NM HIDA, US and MRCP not available on weekends, therefore patient was admitted to surgical service pending further work up for biliary colic vs acalculous cholecystitis. Review of Systems Constitutional Constitutional: Reports fever(s) and Reports poor appetite Gastrointestinal Gastrointestinal: Reports abdominal pain, Reports early satiety, Denies heartburn, Reports diarrhea, Reports nausea and Denies vomiting PFSH All Active Problems (Updated 08/31/21 @ 16:49 by Elizabeth Stoddard DO) Acute epigastric pain (Acute) Abdominal pain (Acute) Fever (Acute) Closed nondisplaced fracture of styloid process of left radius (Acute) Medical History (Updated 08/31/21 @ 16:49 by Elizabeth Stoddard DO) ADHD (attention deficit hyperactivity disorder) GERD (gastroesophageal reflux disease) Surgical History (Updated 08/29/21 @ 08:06 by Italo Maxwell MD) Dilation and curettage Ligation of fallopian tube Jake Fundoplication S/P appendectomy Social History Smoking/Tobacco Use Status: Former Tobacco Use Smoking risk assessment performed?: Yes Alcohol Intake: current Alcohol Intake frequency: holidays/special occasions only Alcohol type: beer Drug use: Occasionally Substance use type: marijuana Do you feel safe at home: Yes Do you feel safe in your relationship?: Yes Meds Allergies and Home Medications Allergies Allergy/AdvReac Type Severity Reaction Status Date / Time kiwi Allergy Severe Hives Unverified 08/31/21 10:53 lidocaine Allergy Severe Itching Unverified 08/31/21 10:53 adhesive Allergy Intermediate Topical Unverified 08/31/21 10:53 Irritation lactose Allergy Unknown Unverified 08/31/21 10:53 ibuprofen AdvReac Intermediate bloody nose Unverified 08/31/21 10:53 banana Allergy Uncoded 08/31/21 10:54 Home Medications Medication Instructions Recorded Confirmed Type pantoprazole [Protonix] 20 mg PO BID 14 Days #28 tab 08/29/21 08/31/21 Rx Exam Const General: cooperative, healthy appearing, comfortable and no acute distress Resp Effort & Inspection: normal respiratory effort, no audible wheezes, no cough and no respiratory distress GI Inspection: non-distended Palpation: soft, not firm, no guarding and tender in the RUQ; with no rebound tenderness Neuro General: patient alert, patient awake and patient oriented x3 Results Labs Result diagrams: 08/31/21 10:55 08/31/21 10:55 Labs: Laboratory Results - last 24 hr 08/31/21 08/31/21 08/31/21 10:55 10:55 10:55 WBC 8.54 RBC 4.22 Hgb 12.9 Hct 37.9 MCV 89.8 MCH 30.6 MCHC 34.0 RDW 11.9 Plt Count 253 MPV 10.2 Immature Gran % 1.1 Neutrophils % 58.0 Lymphocytes % 32.0 Monocytes % 7.0 Eosinophils % 1.1 Basophils % 0.8 Nucleated RBC % 0 Absolute Neutrophils 4.96 Absolute Lymphocytes 2.73 Absolute Monocytes 0.60 Absolute Eosinophils 0.09 Absolute Basophils 0.07 VBG Lactate Sodium 139 Potassium 3.7 Chloride 103 Carbon Dioxide 25.5 Anion Gap 10.5 BUN 9 Creatinine 0.8 Estimated GFR/1.73 m2 >= 60.00 Glucose 97 Calcium 8.9 Magnesium 2.2 Total Bilirubin 0.6 AST 15 ALT 23 Alkaline Phosphatase 64 Total Protein 7.6 Albumin 4.5 TSH 3.02 Urine Color Urine Clarity Urine pH Ur Specific [place] Urine Protein Urine Ketones Urine Blood Urine Nitrite Urine Bilirubin Urine Urobilinogen Ur Leukocyte Esterase Urine RBC Urine WBC Ur Epithelial Cells Urine Crystals Urine Bacteria Urine Casts Urine Mucus Ur Culture Indicated? Urine Glucose COVID-19 Source SARS-CoV-2 (PCR) 08/31/21 08/31/21 08/31/21 10:55 11:00 11:40 WBC RBC Hgb Hct MCV MCH MCHC RDW Plt Count MPV Immature Gran % Neutrophils % Lymphocytes % Monocytes % Eosinophils % Basophils % Nucleated RBC % Absolute Neutrophils Absolute Lymphocytes Absolute Monocytes Absolute Eosinophils Absolute Basophils VBG Lactate 0.8 Sodium Potassium Chloride Carbon Dioxide Anion Gap BUN Creatinine Estimated GFR/1.73 m2 Glucose Calcium Magnesium Total Bilirubin AST ALT Alkaline Phosphatase Total Protein Albumin TSH Urine Color Yellow Urine Clarity Clear Urine pH 7.0 Ur Specific [place] 1.025 Urine Protein Negative Urine Ketones 15 H Urine Blood Moderate H Urine Nitrite Negative Urine Bilirubin Negative Urine Urobilinogen 0.2 Ur Leukocyte Esterase Negative Urine RBC 10-20 H Urine WBC 0-2 Ur Epithelial Cells Rare Urine Crystals Negative Urine Bacteria Few Urine Casts Negative Urine Mucus Trace Ur Culture Indicated? No Urine Glucose Negative COVID-19 Source Nasal/Nares SARS-CoV-2 (PCR) Negative Last Vital Signs Temp 100.5 F H 08/31/21 10:48 Pulse 60 08/31/21 13:31 Resp 15 08/31/21 13:40 BP 116/68 08/31/21 13:31 Pulse Ox 98 08/31/21 13:40
[2021-08-31] MEDS: Lactated Ringers 1,000 ML 75 ML IV (15:14)
[2021-08-31] MEDS: Pantoprazole 40 MG VIAL IVP (15:32)
[2021-08-31] MEDS: Enoxaparin 40 MG/0.4 ML SYR SC (15:34)
[2021-08-31] MEDS: MORPHine 2 MG/ML SYR IVP ×4 (15:34→23:40)
[2021-08-31] MEDS: Metoclopramide 10 MG/2 ML VIAL 5 MG IVP (19:44)
[2021-09-01] VITALS (8 sets, daily range): BP systolic 106–137; BP diastolic 64–74; PULSE 64–70; RESP 12–18; TEMP 36–37.3; O2SAT 97–100
[2021-09-01] MEDS: Lactated Ringers 1,000 ML 75 ML IV ×2 (03:18→19:53)
[2021-09-01] MEDS: MORPHine 2 MG/ML SYR IVP ×4 (03:18→21:12)
[2021-09-01] MEDS: Ondansetron 4 MG/2 ML VIAL IVP ×4 (03:19→17:55)
[2021-09-01] MEDS: Metoclopramide 10 MG/2 ML VIAL 5 MG IVP ×3 (03:19→20:12)
[2021-09-01] MEDS: Normal Saline Flush 10 ML SYR IVP ×5 (07:26→20:12)
[2021-09-01 07:40] LABS: Abs Immature Grans 0.02 10^3/uL (0.0-0.06); Absolute Basophil Count 0.06 10^3/uL (0.0-0.2); Absolute Eosinophil Count 0.05 10^3/uL (0.0-0.7); Absolute Lymphocyte Count 2.01 10^3/uL (1.2-3.4); Absolute Monocyte Count 0.44 10^3/uL (0.1-0.8); Absolute Neutrophil Count 5.03 10^3/uL (1.2-6.7); Basophils % 0.8; Eosinophils % 0.7; HCT 41.4 % (36.0-46.0); HGB 13.6 g/dL (11.2-15.7); Immature Grans % 0.3; Lymphocytes % 26.4; MCH 30.3 pg (27.0-33.0); MCHC 32.9 % (32.0-36.0); MCV 92.2 fL (80-95); Monocytes % 5.8; Nucleated RBC 0 %; Platelet Count 253 10^3/uL (130-400); RBC 4.49 10^6/uL (3.93-5.22); RDW 11.8 % (11.7-14.6); WBC 7.61 10^3/uL (4.4-10.8)
--- NOTE | 2021-09-01 07:50 | W.PM.PROGNOT ---
Documented by User: GALI Amezcua 09/01/21 08:01 Date of Service Date of service: 09/01/21 Time of Service: 07:50 Assessment and Plan Assessment and plan (1) Abdominal pain: Status: Acute Assessment and plan: - Continue NPO and IV fluids -Awaiting AM labs including lipase and LFT's -NM HIDA scan ordered to assess for biliary dyskinesia; Will need to hold narcotic pain medications prior to this study -Consider repeating abdominal US or obtaining MRCP to better evaluate hepatobiliary system -Consider upper GI/barium swallow due to hx of glenn to assess for reflux -Lovenox for DVT ppx -Protonix for GI ppx -Encourage ambulation Qualifiers: Abdominal location: right upper quadrant Qualified Code(s): R10.11 - Right upper quadrant pain Subjective Subjective Interval history since last seen: Arrive with the patient sitting up in the chair, with a moist hot pack. She reports she is now having constant RUQ pain that is sharp and radiates to her back. She also complains of feeling nausea's. Exam Const General: cooperative and acute distress moderate Orientation: alert and oriented x3 Resp Effort & Inspection: normal respiratory effort, no audible wheezes and no cough GI Palpation: guarding and tender in the RUQ Objective Last Vital Signs Temp 36.6 C 09/01/21 03:42 Pulse 69 09/01/21 03:42 Resp 12 09/01/21 03:42 BP 106/66 09/01/21 03:42 Pulse Ox 97 09/01/21 03:42 Laboratory Results - last 24 hr 08/31/21 08/31/21 08/31/21 10:55 10:55 10:55 WBC 8.54 RBC 4.22 Hgb 12.9 Hct 37.9 MCV 89.8 MCH 30.6 MCHC 34.0 RDW 11.9 Plt Count 253 MPV 10.2 Immature Gran % 1.1 Neutrophils % 58.0 Lymphocytes % 32.0 Monocytes % 7.0 Eosinophils % 1.1 Basophils % 0.8 Nucleated RBC % 0 Absolute Neutrophils 4.96 Absolute Lymphocytes 2.73 Absolute Monocytes 0.60 Absolute Eosinophils 0.09 Absolute Basophils 0.07 VBG Lactate Sodium 139 Potassium 3.7 Chloride 103 Carbon Dioxide 25.5 Anion Gap 10.5 BUN 9 Creatinine 0.8 Estimated GFR/1.73 m2 >= 60.00 Glucose 97 Calcium 8.9 Magnesium 2.2 Total Bilirubin 0.6 AST 15 ALT 23 Alkaline Phosphatase 64 Total Protein 7.6 Albumin 4.5 TSH 3.02 Urine Color Urine Clarity Urine pH Ur Specific [place] Urine Protein Urine Ketones Urine Blood Urine Nitrite Urine Bilirubin Urine Urobilinogen Ur Leukocyte Esterase Urine RBC Urine WBC Ur Epithelial Cells Urine Crystals Urine Bacteria Urine Casts Urine Mucus Ur Culture Indicated? Urine Glucose COVID-19 Source SARS-CoV-2 (PCR) 08/31/21 08/31/21 08/31/21 10:55 11:00 11:40 WBC RBC Hgb Hct MCV MCH MCHC RDW Plt Count MPV Immature Gran % Neutrophils % Lymphocytes % Monocytes % Eosinophils % Basophils % Nucleated RBC % Absolute Neutrophils Absolute Lymphocytes Absolute Monocytes Absolute Eosinophils Absolute Basophils VBG Lactate 0.8 Sodium Potassium Chloride Carbon Dioxide Anion Gap BUN Creatinine Estimated GFR/1.73 m2 Glucose Calcium Magnesium Total Bilirubin AST ALT Alkaline Phosphatase Total Protein Albumin TSH Urine Color Yellow Urine Clarity Clear Urine pH 7.0 Ur Specific [place] 1.025 Urine Protein Negative Urine Ketones 15 H Urine Blood Moderate H Urine Nitrite Negative Urine Bilirubin Negative Urine Urobilinogen 0.2 Ur Leukocyte Esterase Negative Urine RBC 10-20 H Urine WBC 0-2 Ur Epithelial Cells Rare Urine Crystals Negative Urine Bacteria Few Urine Casts Negative Urine Mucus Trace Ur Culture Indicated? No Urine Glucose Negative COVID-19 Source Nasal/Nares SARS-CoV-2 (PCR) Negative 09/01/21 07:20 WBC 7.61 RBC 4.49 Hgb 13.6 Hct 41.4 MCV 92.2 MCH 30.3 MCHC 32.9 RDW 11.8 Plt Count 253 MPV 10.0 Immature Gran % 0.3 Neutrophils % 66.0 Lymphocytes % 26.4 Monocytes % 5.8 Eosinophils % 0.7 Basophils % 0.8 Nucleated RBC % 0 Absolute Neutrophils 5.03 Absolute Lymphocytes 2.01 Absolute Monocytes 0.44 Absolute Eosinophils 0.05 Absolute Basophils 0.06 VBG Lactate Sodium Potassium Chloride Carbon Dioxide Anion Gap BUN Creatinine Estimated GFR/1.73 m2 Glucose Calcium Magnesium Total Bilirubin AST ALT Alkaline Phosphatase Total Protein Albumin TSH Urine Color Urine Clarity Urine pH Ur Specific [place] Urine Protein Urine Ketones Urine Blood Urine Nitrite Urine Bilirubin Urine Urobilinogen Ur Leukocyte Esterase Urine RBC Urine WBC Ur Epithelial Cells Urine Crystals Urine Bacteria Urine Casts Urine Mucus Ur Culture Indicated? Urine Glucose COVID-19 Source SARS-CoV-2 (PCR) Documented by User: Sandie Panda, DO 09/01/21 18:05 Assessment and Plan Assessment and plan (1) Biliary dyskinesia: Status: Acute Assessment and plan: Patient seen and examined. Agree with above. Her HIDA scan showed an EF of 29%. Patient states when she got the CCK injection that did bring on her symptoms. I reviewed her symptomatology that she has been having. She has had multiple laparoscopic surgeries open, appendectomy, and lap Glenn. She is not had any problems with anesthesia. She is not on any medications at home. She is not on any hormonal control, she no longer has any fallopian tube Specimens. She is still having unrelenting nausea and would like her gallbladder removed. She probability of chronic diarrhea. She says that no one follow-up this is acceptable to her. The alternatives to surgery, risks, complications, and the possible need to convert to open cholecystectomy were discussed. Also bleeding, infection, pneumonia, blood clots, complications of anesthesia, damage to bowel, bladder, blood vessels, or bile ducts, liver, need for blood transfusions. Also: chronic pain, chronic diarrhea, reoccurrence of signs and symptoms, port site hernias, adhesions. All questions were answered and the patient elected to proceed with surgery. We will see if we will be able to get her into surgery tomorrow versus having surgery with Dr. Elliott on Wednesday.
[2021-09-01 08:03] LABS: ALT 21 U/L (14-59); AST 15 U/L (15-37); Albumin 4.5 g/dL (3.4-5.0); Alkaline Phosphatase 68 U/L (46-116); Anion Gap 11.7 mmol/L (3-11); BUN 13 mg/dL (7-18); Bilirubin, Total 0.8 mg/dL (0.2-1.0); CO2 24.3 mmol/L (21.0-32.0); CREATININE 0.8 mg/dL (0.55-1.02); Calcium 8.9 mg/dL (8.5-10.1); Chloride 104 mmol/L (98-107); Glucose 92 mg/dL (74-106); Lipase 74 U/L (73-393); Potassium 3.7 mmol/L (3.5-5.1); Sodium 140 mmol/L (136-145); Total Protein 7.8 g/dL (6.4-8.2)
[2021-09-01 08:22] LABS: ALT 24 U/L (14-59); AST 16 U/L (15-37); Albumin 4.4 g/dL (3.4-5.0); Alkaline Phosphatase 64 U/L (46-116); Bilirubin, Direct 0.2 mg/dL (0.0-0.2); Bilirubin, Total 0.7 mg/dL (0.2-1.0); Total Protein 7.3 g/dL (6.4-8.2)
[2021-09-01] MEDS: ACETAMINOPHEN 1,000 MG/100 ML BTL 400 MG IVPB ×2 (09:32→18:15)
--- NOTE | 2021-09-01 14:00 | DI.NM_ITS ---
Exam(s) NM HEPATOBILIARY CCK GRP EXAM: NM HEPATOBILIARY CCK GRP CLINICAL HISTORY: r/o biliary colic. TECHNIQUE: Nuclear hepatobiliary imaging was performed with IV injection of 5 millicuries technetium 99 mebrofenin. Recent ultrasound and CT reviewed COMPARISON: CT CT CHEST PE ABD PELVIS W from 08/31/[address] CHEST PE ABD PELVIS W from 08/31/2021 FINDINGS: There is normal uptake and excretion of radiopharmaceutical by the liver and activity is seen within the gallbladder lumen at 6 minutes post injection. The CBD is not dilated. In response to CCK infusion the ejection fraction recorded is 29 percent which lower than normal. No rmal is greater than 35 percent. IMPRESSION: 1. There is no obstruction of the cystic duct. However, the gallbladder ejection fraction is 29 perc ent which is lower than normal and may indicate an element of gallbladder dysfunction. Correlation w ith clinical findings recommended [facility] guidelines: Gallbladder visualization should be present by 3 hours. Delayed ayzaqle-rk-uppud moya sit beyond 60 min raises the suspicion for partial common bile duct (CBD) obstruction. Gallbladder ejection fraction <35% has a good correlation with acalculous disease (i.e., chronic acal culous cholecystitis, cystic duct syndrome, sphincter of Oddi disease).
[2021-09-01] MEDS: Pantoprazole 40 MG VIAL IVP (16:34)
[2021-09-01] MEDS: Enoxaparin 40 MG/0.4 ML SYR SC (16:34)
--- NOTE | 2021-09-01 17:39 | PDOC.CMIN ---
- If Service Date Differs Date of service: 09/01/21 Time of Service: 17:39 Care Management Initial Assess REASON FOR HOSPITALIZATION:: Adominal Pain PAST MEDICAL HISTORY/PAST SURGICAL HISTORY:: All Active Problems (Updated 08/31/21 @ 16:49 by Elizabeth Stoddard DO). Acute epigastric pain (Acute). Abdominal pain (Acute). Fever (Acute). Closed nondisplaced fracture of styloid process of left radius (Acute). Medical History (Updated 08/31/21 @ 16:49 by Elizabeth Stoddard DO). ADHD (attention deficit hyperactivity disorder). GERD (gastroesophageal reflux disease). Surgical History (Updated 08/29/21 @ 08:06 by Italo Maxwell MD). Dilation and curettage. Ligation of fallopian tube. Glenn Fundoplication. 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 She lives in [facility] with her partner. She drives and is independent at baseline. Her mother is supportive. CURRENT FUNCTIONAL STATUS:: Lori was lying in bed when CM met with her. She was pleasant and easily engaged in conversation. Her mother was visiting. Lori met with Dr. Panda this evening and is anticipating having her Gallbladder removed either tomorrow or Wednesday, depending on their schedule. She currently has 6/10 abdominal pain, RN notified. CM will continue to support discharge planning needs. ADVANCE DIRECTIVES:: None Has patient been provided with info about the portal/API?: Yes Did the patient sign up for the portal?: No CODE STATUS:: Full Code INSURANCE COVERAGE / FINANCIAL ISSUES:: Medicaid CURRENT HOME/COMMUNITY SERVICES/EQUIPMENT:: None PRIMARY CARE PHYSICIAN:: Sky Jensen POTENTIAL DISCHARGE NEEDS:: Follow up appointments PATIENT/FAMILY EDUCATION NEEDS:: Review discharge instructions, limitations and plan to follow up with community providers. ask me three. TRANSPORTATION:: via private vehicle with family. PLAN:: Anticipate Lori will be discharged home with no new services when medically cleared by surgery. She will transport via private vehicle with family and follow up with community providers.
[2021-09-02] VITALS (12 sets, daily range): BP systolic 99–123; BP diastolic 46–75; PULSE 61–83; RESP 14–25; TEMP 36–36.8; O2SAT 96–100; BMI 24.6
[2021-09-02] MEDS: Normal Saline Flush 10 ML SYR IVP ×9 (00:52→22:34)
[2021-09-02] MEDS: Ondansetron 4 MG/2 ML VIAL IVP ×6 (00:52→23:10)
[2021-09-02] MEDS: MORPHine 2 MG/ML SYR IVP ×10 (00:53→22:33)
[2021-09-02] MEDS: ACETAMINOPHEN 1,000 MG/100 ML BTL 400 MG IVPB ×3 (00:53→18:17)
[2021-09-02] MEDS: Metoclopramide 10 MG/2 ML VIAL 5 MG IVP ×2 (06:49→17:45)
--- NOTE | 2021-09-02 07:22 | W.PM.PROGNOT ---
Documented by User: GALI Amezcua 09/02/21 07:29 Date of Service Date of service: 09/02/21 Time of Service: 07:22 Assessment and Plan Assessment and plan (1) Abdominal pain: Status: Acute Assessment and plan: - Continue NPO and IV fluids -HIDA scan completed yesterday with gallbladder ejection fraction of 29% -Lovenox for DVT ppx -Protonix for GI ppx -Encourage ambulation -Labs continue to be normal Plan for laparoscopic cholecystectomy later today. Qualifiers: Abdominal location: right upper quadrant Qualified Code(s): R10.11 - Right upper quadrant pain Subjective Subjective Interval history since last seen: patient reports that she was experiencing severe nausea and 8/10PL this morning, after medications her pain level has decreased to 6/10PL and her nausea has almost resolved. She reports attempting to eat jello last night, however this caused her to have increased pain. Exam Const General: cooperative, healthy appearing and comfortable Orientation: alert and oriented x3 Resp Effort & Inspection: normal respiratory effort, no audible wheezes and no cough Objective Last Vital Signs Temp 36.8 C 09/02/21 00:16 Pulse 62 09/02/21 00:16 Resp 18 09/02/21 00:16 BP 99/53 L 09/02/21 00:16 Pulse Ox 96 09/02/21 00:16 Laboratory Results - last 24 hr 09/01/21 09/01/21 09/01/21 07:20 07:20 07:20 WBC 7.61 RBC 4.49 Hgb 13.6 Hct 41.4 MCV 92.2 MCH 30.3 MCHC 32.9 RDW 11.8 Plt Count 253 MPV 10.0 Immature Gran % 0.3 Neutrophils % 66.0 Lymphocytes % 26.4 Monocytes % 5.8 Eosinophils % 0.7 Basophils % 0.8 Nucleated RBC % 0 Absolute Neutrophils 5.03 Absolute Lymphocytes 2.01 Absolute Monocytes 0.44 Absolute Eosinophils 0.05 Absolute Basophils 0.06 Sodium 140 Potassium 3.7 Chloride 104 Carbon Dioxide 24.3 Anion Gap 11.7 H BUN 13 Creatinine 0.8 Estimated GFR/1.73 m2 >= 60.00 Glucose 92 Calcium 8.9 Magnesium 2.0 Total Bilirubin 0.8 0.7 Conjugated Bilirubin 0.2 AST 15 16 ALT 21 24 Alkaline Phosphatase 68 64 Total Protein 7.8 7.3 Albumin 4.5 4.4 Lipase 74 Documented by User: Sandie Carreon Farzad, DO 09/02/21 12:14 Assessment and Plan Assessment and plan (1) Biliary dyskinesia: Status: Acute Assessment and plan: Patient still says she has 6 out of 10 pain and extreme nausea today. She cannot tolerate oral Jell-O/clear liquids. We reviewed surgery today expectations and postop cares. She is at high risk for developing post Bren diarrhea. We will probably keep her overnight and discharge her home in a.m., I suspect she still having to have significant postop nausea and vomiting. We reviewed the chance of open cholecystectomy and other associated risks. All questions answered to patient satisfaction. She is stable for proposed procedure today The patient will be scheduled for laparoscopic cholecystectomy. The alternatives to surgery, risks, complications, and the possible need to convert to open cholecystectomy were discussed. Also bleeding, infection, pneumonia, blood clots, complications of anesthesia, damage to bowel, bladder, blood vessels, or bile ducts, liver, need for blood transfusions. Also: chronic pain, chronic diarrhea, reoccurrence of signs and symptoms, port site hernias, adhesions. All questions were answered and the patient elected to proceed with surgery
--- NOTE | 2021-09-02 08:58 | W.ANESPRE ---
General Info Date of Service Date Performed: 09/02/21 Height: 5 ft 10.87 in Weight: 79.8 kg Body Mass Index (BMI): 24.6 Surgical Procedure: Operation Date: 09/02/21 14:10 Proposed Procedures Side Surgeon p Cholecystectomy Laparoscopic Sandie Panda, DO Meds Allergies and Home Medications Allergies Allergy/AdvReac Type Severity Reaction Status Date / Time kiwi Allergy Severe Hives Unverified 08/31/21 10:53 lidocaine Allergy Severe Itching Unverified 08/31/21 10:53 adhesive Allergy Intermediate Topical Unverified 08/31/21 10:53 Irritation lactose Allergy Unknown Unverified 08/31/21 10:53 ibuprofen AdvReac Intermediate bloody nose Unverified 08/31/21 10:53 banana Allergy Uncoded 08/31/21 10:54 Home Medication Medication Instructions Recorded pantoprazole [Protonix] 20 mg PO BID 14 Days #28 tab 08/29/21 Current Visit Medications: Current Medications Generic Name Dose Route Start Last Admin Trade Name Freq PRN Reason Stop Dose Admin Acetaminophen 650 mg 08/31/21 13:42 Acetaminophen 325 Mg Tab PO Q4H PRN PRN Pain Calcium Carbonate 500 mg 08/31/21 15:14 Calcium Carbonate *Tums* 500 Mg Chew PO QID PRN PRN Enoxaparin Sodium 40 mg 08/31/21 16:00 09/01/21 16:34 Enoxaparin 40 Mg/0.4 Ml Syr SC 40 mg Q24H JASON Administration Sodium Chloride 500 mls @ 0 mls/hr 08/31/21 13:42 Saline 500ml Bag IV PRN PRN As Directed Ringer's Solution 1,000 mls @ 75 mls/hr 08/31/21 13:45 09/01/21 19:53 IV 75 mls/hr INFUSION JASON Administration Acetaminophen 1,000 mg in 100 mls @ 400 mls/hr 09/01/21 08:30 09/02/21 06:49 Ofirmev IVPB 400 mls/hr Q6H PRN PRN Administration IV Miscellaneous Supplies 1 each 08/31/21 13:45 Iv Access IV DIRECTED JASON Metoclopramide HCl 5 mg 08/31/21 18:43 09/02/21 06:49 Metoclopramide 10 Mg/2 Ml Vial IVP 5 mg Q6H PRN PRN Administration Morphine Sulfate 2 mg 08/31/21 13:42 09/02/21 06:49 Morphine 2 Mg/Ml Syr IVP 2 mg Q1H PRN PRN Administration Ondansetron HCl 4 mg 08/31/21 13:42 09/02/21 04:28 Ondansetron 4 Mg/2 Ml Vial IVP 4 mg Q4H PRN PRN Administration Pantoprazole Sodium 40 mg 08/31/21 16:00 09/01/21 16:34 Pantoprazole 40 Mg Vial IVP 40 mg Q24H JASON Administration Sodium Chloride 50 ml 08/31/21 12:15 08/31/21 12:09 Normal Saline 50 Ml Bag IJ 50 ml DIRECTED JASON Administration Sodium Chloride 0 ml 08/31/21 13:42 09/02/21 06:50 Normal Saline Flush 10 Ml Syr IVP 20 ml PRN PRN Administration PFSH Active Problems Active Problems: Problem Status Onset Code Biliary dyskinesia K82.8 Acute epigastric pain R10.13 Abdominal pain R10.9 Fever R50.9 Closed nondisplaced fracture of styloid process of left radius S52.515A Medical History Medical History (Updated 09/01/21 @ 17:59 by Sandie Panda DO) ADHD (attention deficit hyperactivity disorder) GERD (gastroesophageal reflux disease) Surgical History Surgical History (Updated 08/29/21 @ 08:06 by Italo Maxwell MD) Dilation and curettage Ligation of fallopian tube Glenn Fundoplication S/P appendectomy Tobacco Smoking/Tobacco Use Status: Former Tobacco Use Alcohol Alcohol Intake: current Alcohol intake frequency: holidays/special occasions only Alcohol type: beer Substance Use Substance use: Occasionally Substance use type: marijuana Vital Signs and Lab Results Vital Signs Most Recent Vital Signs in EMR: Most Recent Vital Signs Temp Pulse Resp BP Pulse Ox 36.8 C 61 17 111/71 99 09/02/21 07:52 09/02/21 07:52 09/02/21 07:52 09/02/21 07:52 09/02/21 07:52 Lab Results Result Diagrams: 09/01/21 07:20 09/01/21 07:20 Blood Type / Crossmatch: No Data to Display Complete Blood Count: White Blood Count 7.61 10^3/uL (4.4-10.8) 09/01/21 07:20 12/13/21 Red Blood Count 4.49 10^6/uL (3.93-5.22) 09/01/21 07:20 09/01/21 Hemoglobin 13.6 g/dL (11.2-15.7) 09/01/21 07:20 09/01/21 Hematocrit 41.4 % (36.0-46.0) 09/01/21 07:20 09/01/21 Platelet Count 253 10^3/uL (130-400) 09/01/21 07:20 09/01/21 Venous Blood Lactate 0.8 mmol/L (0.6-1.4) 08/31/21 10:55 08/31/21 Complete Metabolic Panel: Sodium Level 140 mmol/L (136-145) 09/01/21 07:20 09/01/21 Potassium Level 3.7 mmol/L (3.5-5.1) 09/01/21 07:20 09/01/21 Chloride Level 104 mmol/L (98-107) 09/01/21 07:20 09/01/21 Carbon Dioxide Level 24.3 mmol/L (21.0-32.0) 09/01/21 07:20 09/01/21 Blood Urea Nitrogen 13 mg/dL (7-18) 09/01/21 07:20 09/01/21 Creatinine 0.8 mg/dL (0.55-1.02) 09/01/21 07:20 09/01/21 Estimated GFR/1.73 m2 >= 60.00 (mL/min/1.73m2) 09/01/21 07:20 09/01/21 Magnesium Level 2.0 mg/dL (1.8-2.4) 09/01/21 07:20 09/01/21 Calcium Level 8.9 mg/dL (8.5-10.1) 09/01/21 07:20 09/01/21 Albumin 4.4 g/dL (3.4-5.0) 09/01/21 07:20 09/01/21 Glucose Level 92 mg/dL (74-106) 09/01/21 07:20 09/01/21 Liver Function Panel: Alanine Aminotransferase (ALT/SGPT) 24 U/L (14-59) 09/01/21 07:20 09/01/21 Aspartate Amino Transf (AST/SGOT) 16 U/L (15-37) 09/01/21 07:20 09/01/21 Coagulation Panel: No Data to Display Cardiac Panel: No Data to Display Arterial Blood Gas: No Data to Display Venous Blood Gas: No Data to Display Pancreas Panel: Lipase 74 U/L (73-393) 09/01/21 07:20 09/01/21 Thyroid Panel: Thyroid Stimulating Hormone (TSH) 3.02 uIU/mL (0.36-3.74) 08/31/21 10:55 08/31/21 Infectious Disease: Coronavirus (COVID-19)(PCR) Negative (Negative) 08/31/21 11:00 08/31/21 Coronavirus 2019 Source Nasal/Nares 08/31/21 11:00 08/31/21 Blood Cultures: No Data to Display Toxicology Panel: No Data to Display Panel: Urine HCG, Qualitative Negative 09/02/21 09:30 09/02/21 Imaging and Studies Imaging and Studies Study information below may be from another EMR and interpreted by another provider. Please see original notes in EMR for more complete details. Stress Test Summary: 2016: negative for ischemia. Echocardiogram Summary: 2014: LVEF 65%, no sig valve dz. Pulmonary Function Summary: 06/10/21: normal . Anesthesia Assessment and Plan Anesthesia History Personal History: No History of Anesthesia Complications Family History: No Family History of Anesthesia Complications Exercise Tolerance Exercise Tolerance: Metabolic Equivalents>4 Pertinent Negatives Pertinent Negatives: No Symptoms of GERD, No Major Cardiovascular Symptoms or Complaints, No Major Pulmonary Symptoms or Complaints and No History of CVA/TIA Cardiac & Pulmonary Exam Cardiac Exam: Normal S1/S2 Heart Sounds Pulmonary Exam: Clear Bilateral Breath Sounds Implantable Cardiac Device Does patient have a Pacemaker or an ICD?: No Airway Exam Known Difficult Airway: No Mallampati Class: 2 Mouth Opening: Normal (> 3cm) Thyromental Distance: Greater than 3 cm Neck Range of Motion: Full ROM Neck Circumference: Normal Teeth Condition: Normal Dentition ASA Classification ASA Score: ASA 2 Emergency Case?: No NPO Status NPO Status: NPO Clears >2 hours, Solids >8 hours Status Status: Negative HCG Anesthesia Plan Resuscitation Status: Full Code Anesthesia Technique: General Anesthesia Airway Planned: Endotracheal Tube Monitors Used: Standard Monitors Preoperative Comments:: 31 yo female admitted with right upper quad pain for lap kelsey. Sig PMHx: GERD, s/p glenn, former smoker, occ EtOH/cannabis, [place] [facility] [place] exercise induced asthma. She expressed concerns about her lidocaine allergy. We discussed that we will not use any, but that she should get allergy testing to confirm this in the future as it can limit her future anesthesia and pain management options.
[2021-09-02] MEDS: Lactated Ringers 1,000 ML 75 ML IV (09:15)
--- NOTE | 2021-09-02 10:04 | PDOC.CMPRO ---
- If Service Date Differs Date of service: 09/02/21 Time of Service: 10:04 Care Management Progress Note S/O: Lori had her Gallbladder out this afternoon Per report, she is doing well post op, no nausea, vomiting and her pain is well controlled. Anticipate Lori will discharge home tomorrow, if she does well overnight. Lori needs a note for work. CM will continue to support patient and her discharge planning needs. A: 31 year old female admitted to [facility] on 08/31/21 for abdominal pain P:Anticipate Lori will be discharged home with no new services when medically cleared by surgery. She needs a letter for work. She will transport via private vehicle with family and follow up with community providers.
[2021-09-02 10:17] LABS: HCG Qual (Urine) Negative
[2021-09-02 10:39] LABS: Lyme Ab w Rflx to Lyme Confirm Negative (Negative)
--- NOTE | 2021-09-02 15:11 | GB_PTH ---
PATIENT: Lori Cruz LOC: U#:[id number] AGE/SX: 31/F ROOM: RE08/31/[address]: Elizabeth Stoddard DO : 1990 BED: A DIS: 09/03/2021 SPEC #: [id number] RECD: 09/02/21 17:14 STATUS: RAJNI REQ #: [id number] EBENEZER: 09/02/21 15:[address]: Elizabeth Stoddard DEPT: Surgical Specimen RECD BY: Yamileth Lange ENTERED: 09/02/21 17:15 SP TYPE: GB OTHR DR: Sky Jensen Tissues: 1 - GALLBLADDER Procedures: GROSS AND MICRO LEVEL 3 Comments: [id number]
[2021-09-02] MEDS: Cellulose,Oxidized 4X8 1 PACKET MC (15:18)
--- NOTE | 2021-09-02 15:42 | W.PM.OP ---
Date of service: 09/02/21 Time of Service: 15:47 Operative Note Operative Note DATE OF PROCEDURE: 09/02/21 PRE-OP DIAGNOSIS: biliary dyskinesia POST-OP DIAGNOSIS: same PROCEDURE: lap kelsey SURGEON: Medina Lopez ENROLLMENT MANAGEMENT DIRECTOR: Mirtha Soriano ANESTHESIA TYPE: Local By Surgeon and General LMA/ETT Refer to Anesthesia Record ESTIMATED BLOOD LOSS: 10 PATHOLOGY: other COMPLICATIONS: None Patient was transported to: PACU Patient's condition: stable Procedure Description: The pt is seen at the request of there PCP regarding acute on chronic cholecystitis, cholelithiasis. The pt has failed outpt conservative medical measures and is here today for laparoscopic cholecystectomy. Informed consent was obtained, explaining risks and benefits of the procedure including but not limited to bleeding, infection, pneumonia, blood clots, possible damage to bowel, bladder, blood vessels, bile ducts, possible open procedure, complications of general anesthesia and other unforetold complications. PROCEDURE: The patient agrees and is brought to the operative room suite and placed in supine position. Anesthesia was administered per the Department of Anesthesia. The patient did receive IV antibiotics. NG tube and Leblanc catheter are placed. The patient was prepped and draped in the usual sterile fashion using DuraPrep scrub solution. Pause for the cause was done. Patient has moved had multiple surgeries done in the past. She has an allergy to lidocaine so no local anesthetics were used. A 1 inch incision is made in the inferior umbilicus. A cutdown was done in a standard fashion. 2-0 Vicryl is used for stay sutures. The Roberto is placed into the abdomen. And insufflation is begun. The camera was inserted through the port and shows no damage to underlying structures. A 5 mm port was then placed in the epigastric position under direct visualization as well as two 5 mm ports in the right upper quadrant. The gallbladder fundus was grasped and retracted towards the right shoulder. Infundibulum was grasped and retracted laterally. She does have some scarring around the hepatoduodenal ligament from her previous Glenn. These adhesions were taken down with a combination of blunt dissection and electrocautery. The hepat-duodenal ligament is entered. The cystic duct and artery are dissected out and the most inferior portion of the gallbladder plate is removed from the liver and the critical view of safety was obtained after clearing away all fatty material. Endo Clips were placed across the duct and artery and these structures are divided. The remainder of the gallbladder was excised from the liver bed. The gallbladder was placed in a bag and brought out. Examination of the gallbladder shows indeed the cystic duct and artery to have been divided. The remainder of the abdomen was copiously irrigated with a liter of saline. All saline is removed. There is no bleeding or bile leakage from the liver bed or the clips sites. He fascia under the umbilical incision is closed with 0 Vicryl. No mesh is placed. Incisions are irrigated. All ports and instruments are removed. SPonge and needle counts are correct. Pneumoperitoneum is evacuated and the port sites are monitored to make sure there is no bleeding at the time of desufflation. Port sites are irrigated and the skin is closed with 4-0 Monocryl in a running subcuticular fashion. Skin glue sterile dressings are applied. The patient tolerated the procedure well without complications, transferred to the recovery room in stable condition. MEDINA LOPEZ, DO
[2021-09-02] MEDS: fentaNYL 100 MCG/2 ML VIAL IVP ×2 (16:15→16:20)
--- NOTE | 2021-09-02 16:16 | W.PM.DS.N ---
Documented by User: Sandie Panda DO 09/02/21 16:18 Date of service: 09/03/21 DS: Diagnosis Discharge Diagnosis (1) Biliary dyskinesia: Status: Acute Discharge Plan Disposition Patient Disposition: HOME Condition: Stable Discharge Details Reason For Visit: Abdominal Pain Admit Date/Time: 08/31/21 13:42 Admit Provider: Elizabeth Stoddard Attending Provider: Elizabeth Stoddard Primary Care Provider: Sky [facility] Course Hospital Course: Ms. Cruz is a 28 year old female admitted over the weekend with abdominal pain. US and CT scan were normal. Labs were normal. HIDA scan done on Wednesday showed a low EF. She was taken to the OR on wednesday for a lap kelsey. She has done well. She is eating and drinking without issue. Home Meds and New Rx's Prescriptions: Discontinued pantoprazole [Protonix] 20 mg tablet,delayed release (DR/EC) 20 mg PO BID 14 Days Qty: 28 RF: 0 Discharge Instructions Additional Instructions: Care after Gallbladder Surgery -Pain control: For the first 72 hours after surgery, take you pain meds continuously and not just when you have pain. Alternate Tylenol 1000mg by mouth every 8 hours, and Ibuprofen 600mg every 6 hours. Make sure you take ibuprofen with food and not on an empty stomach. Use the tramadol for breakthrough pain- pain that is greater than a 7. - Use ICE! Ice really helps to keep the swelling down, and swelling causes pain. Twenty minutes on, and then off, continuously for the first 72hours. After the first 72hrs, you can just use the Tylenol, ibuprofen or Celebrex, and ice, when you have pain. If you are taking narcotic pain medication, follow the instructions on the label and do not drive. Pain medications can make you very constipated. Make sure you are moving your bowels daily. If not, take Miralax, milk of magnesia or magnesium citrate. - Anesthesia makes you very constipated. Take a dose of milk of magnesia the morning after surgery. ? Use an ice bag for the first 72 hours. This helps to decrease swelling, which causes pain. It is normal to be more sore/painful and swollen towards the end of the day and first thing in the morning. ? Gallbladder surgery can make you very nauseated; use Zofran for nausea, for the first 24 hours. The nausea generally stops after 24 hours. ? Use milk of magnesia or prune juice to prevent constipation (this is a particular side effect of pain medication and anesthesia). Do not allow yourself to become constipated. ? Avoid fatty or greasy foods; introduce these slowly, with care, after about 1 month. High-fat foods include: ? Foods that are fried, like [place] fries and potato chips ? High-fat meats, such as fink, bologna, sausage, ground beef, and ribs, pork products ? High-fat dairy products, such as cheese, ice cream, cream, whole milk, and sour cream ? Pizza ? Foods made with lard or butter ? Creamy soups or sauces ? Meat gravies ? Chocolate ? Oils, such as palm and coconut oil ? Skin of chicken or turkey Nuts and nut butters [place] ? Start out eating very small, bland amounts of food. Do not take pain pills on an empty stomach. - You will notice purple discoloration around the incisions. This is the ?skin glue?. This will wear off on its own. It is OK to shower after 24hrs. You do not need to cover the incisions. - -You should walk frequently, gradually, increasing the distance. You may climb stairs, just go slowly. ? Do not go swimming or sit in a hot tub for two weeks. ? There are no stitches to remove. ? Do not drive your car x72hrs and then only if you have no pain and can move freely. Do not drive if you are taking pain narcotic pain medications. ? You may resume sexual activity whenever pain and soreness subside, usually in 2 weeks. ? Do no lift anything over 5 lbs. for two weeks. ? You may return to work in one week, or when you feel able, provided you do not have to do any heavy lifting or prolonged standing. ? You should return to Dr. Panda?s office for a post-op appointment about one week after surgery. Please call the Surgical Clinic at: [phone] to schedule an appointment. When to Call the Office: ? If the incision becomes red or swollen, or there is more than a little drainage from it. ? If you develop a temperature higher than 100.5 F. ? If your eyes turn yellow ? Vomiting and can?t keep fluids down Referrals: Mirtha Soriano PA [[employer]] - 09/19/21 9:00 am Activity:: see above Equipment/Supplies:: No Equipment Needed Diet:: low fat Discharge Orders Discharge Orders: Discharge Order (Routine); Ordered 09/03/21 Ordered By: Malini Elliott DS: Data Vitals/I&O Vitals and I&O: Vital Signs Temperature 36.3 C L 09/02/21 16:07 Temperature Source Tympanic 09/02/21 07:52 Pulse 78 09/02/21 16:07 Pulse Rhythm Regular 09/02/21 09:15 Pulse 73 08/31/21 13:40 Respiratory Rate 25 H 09/02/21 16:07 Respiratory Effort Non-Labored 09/02/21 09:15 Respiratory Depth Normal 09/02/21 09:15 Respiratory Pattern Normal 09/02/21 09:15 Blood Pressure 114/70 09/02/21 16:07 Blood Pressure Mean 79 08/31/21 13:31 Blood Pressure Position Supine 08/31/21 10:48 Pulse Oximetry 98 09/02/21 16:07 Oxygen Delivery Method Room Air 09/02/21 16:07 Oxygen Flow Rate 0 09/02/21 07:52 Pain Level 6 09/02/21 11:18 Comment 09/02/21 04:42 Intake & Output 09/01/21 09/02/21 09/02/21 23:59 11:59 23:59 Intake Total 773.75 / 2268.75 1100 / 1200 100 / 1200 Output Total 975 / 1575 975 / 1185 210 / 1185 Balance -201.25 / 693.75 125 / 15 -110 / 15 Weight 79.8 kg Intake: IV 653.75 / 2148.75 1100 / 1200 100 / 1200 Oral 120 / 120 Output: Urine 975 / 1575 975 / 1175 200 / 1175 Estimated Blood Loss Other: Urine Color Pale Yellow Pale Yellow Yellow Urine Appearance Clear Clear Clear Urine Odor None Normal Comment patient independent to bathroom Emesis Description None Voiding Methods Toilet Toilet Data Completed and Pending Labs on day of discharge: Labs from last 24 hours 09/02/21 08/31/21 09:30 10:55 Urine HCG, Qual Negative Lyme Disease Antibody Negative Preliminary micro results at discharge 08/31/21 11:30 Blood Culture - Preliminary Blood NO GROWTH 48 HOURS 08/31/21 10:55 Blood Culture - Preliminary Blood NO GROWTH 48 HOURS PFSH All Active Problems (Updated 09/01/21 @ 17:59 by Sandie Panda DO) Biliary dyskinesia (Acute) Acute epigastric pain (Acute) Abdominal pain (Acute) Fever (Acute) Closed nondisplaced fracture of styloid process of left radius (Acute) Medical History (Updated 09/01/21 @ 17:59 by Sandie Panda DO) ADHD (attention deficit hyperactivity disorder) GERD (gastroesophageal reflux disease) Surgical History (Updated 08/29/21 @ 08:06 by Italo Maxwell MD) Dilation and curettage Ligation of fallopian tube Glenn Fundoplication S/P appendectomy Social History Smoking/Tobacco Use Status: Former Tobacco Use Smoking risk assessment performed?: Yes Alcohol Intake: current Alcohol Intake frequency: holidays/special occasions only Alcohol type: beer Drug use: Occasionally Substance use type: marijuana Do you feel safe at home: Yes Do you feel safe in your relationship?: Yes Documented by User: Malini Elliott MD 09/03/21 14:14 Date of service: 09/03/21 Time of Service: 14:12 Discharge Plan Disposition Patient Disposition: HOME Condition: Stable Discharge Details Reason For Visit: Abdominal Pain Admit Date/Time: 08/31/21 13:42 Admit Provider: Elizabeth Stoddard Attending Provider: Elizabeth Stoddard Primary Care Provider: Sky Jensen [facility] Course Hospital Course: Ms. Cruz is a 28 year old female admitted over the weekend with abdominal pain. US and CT scan were normal. Labs were normal. HIDA scan done on Wednesday showed a low EF. She was taken to the OR on wednesday for a lap kelsey. She has done well. She is eating and drinking without issue. Home Meds and New Rx's Prescriptions: Discontinued pantoprazole [Protonix] 20 mg tablet,delayed release (DR/EC) 20 mg PO BID 14 Days Qty: 28 RF: 0 Discharge Instructions Additional Instructions: Care after Gallbladder Surgery -Pain control: For the first 72 hours after surgery, take you pain meds continuously and not just when you have pain. Alternate Tylenol 1000mg by mouth every 8 hours, and Ibuprofen 600mg every 6 hours. Make sure you take ibuprofen with food and not on an empty stomach. Use the tramadol for breakthrough pain- pain that is greater than a 7. - Use ICE! Ice really helps to keep the swelling down, and swelling causes pain. Twenty minutes on, and then off, continuously for the first 72hours. After the first 72hrs, you can just use the Tylenol, ibuprofen or Celebrex, and ice, when you have pain. If you are taking narcotic pain medication, follow the instructions on the label and do not drive. Pain medications can make you very constipated. Make sure you are moving your bowels daily. If not, take Miralax, milk of magnesia or magnesium citrate. - Anesthesia makes you very constipated. Take a dose of milk of magnesia the morning after surgery. ? Use an ice bag for the first 72 hours. This helps to decrease swelling, which causes pain. It is normal to be more sore/painful and swollen towards the end of the day and first thing in the morning. ? Gallbladder surgery can make you very nauseated; use Zofran for nausea, for the first 24 hours. The nausea generally stops after 24 hours. ? Use milk of magnesia or prune juice to prevent constipation (this is a particular side effect of pain medication and anesthesia). Do not allow yourself to become constipated. ? Avoid fatty or greasy foods; introduce these slowly, with care, after about 1 month. High-fat foods include: ? Foods that are fried, like [place] fries and potato chips ? High-fat meats, such as fink, bologna, sausage, ground beef, and ribs, pork products ? High-fat dairy products, such as cheese, ice cream, cream, whole milk, and sour cream ? Pizza ? Foods made with lard or butter ? Creamy soups or sauces ? Meat gravies ? Chocolate ? Oils, such as palm and coconut oil ? Skin of chicken or turkey Nuts and nut butters [place] ? Start out eating very small, bland amounts of food. Do not take pain pills on an empty stomach. - You will notice purple discoloration around the incisions. This is the ?skin glue?. This will wear off on its own. It is OK to shower after 24hrs. You do not need to cover the incisions. - -You should walk frequently, gradually, increasing the distance. You may climb stairs, just go slowly. ? Do not go swimming or sit in a hot tub for two weeks. ? There are no stitches to remove. ? Do not drive your car x72hrs and then only if you have no pain and can move freely. Do not drive if you are taking pain narcotic pain medications. ? You may resume sexual activity whenever pain and soreness subside, usually in 2 weeks. ? Do no lift anything over 5 lbs. for two weeks. ? You may return to work in one week, or when you feel able, provided you do not have to do any heavy lifting or prolonged standing. ? You should return to Dr. Panda?s office for a post-op appointment about one week after surgery. Please call the Surgical Clinic at: [phone] to schedule an appointment. When to Call the Office: ? If the incision becomes red or swollen, or there is more than a little drainage from it. ? If you develop a temperature higher than 100.5 F. ? If your eyes turn yellow ? Vomiting and can?t keep fluids down Referrals: Mirtha Soriano PA [[employer]] - 09/19/21 9:00 am Activity:: see above Equipment/Supplies:: No Equipment Needed Diet:: low fat Discharge Orders Discharge Orders: Discharge Order (Routine); Ordered 09/03/21 Ordered By: Malini Elliott DS: Summary Time Spent with Patient providing and/or coordinating discharge services: Less than 30 minutes Status at Discharge Functional status at discharge: independent ambulation Overall status at discharge: patient is back to baseline Mental Status: mental status grossly normal Speech and Movement: speech and movement normal Mood: congruent mood Affect: normal affect Exam Psych Mental Status: mental status grossly normal Speech and Movement: speech and movement normal Mood: congruent mood Affect: normal affect PFSH All Active Problems (Updated 09/01/21 @ 17:59 by Sandie Panda DO) Biliary dyskinesia (Acute) Acute epigastric pain (Acute) Abdominal pain (Acute) Fever (Acute) Closed nondisplaced fracture of styloid process of left radius (Acute) Medical History (Updated 09/01/21 @ 17:59 by Sandie Panda DO) ADHD (attention deficit hyperactivity disorder) GERD (gastroesophageal reflux disease) Surgical History (Updated 08/29/21 @ 08:06 by Italo Maxwell MD) Dilation and curettage Ligation of fallopian tube Glenn Fundoplication S/P appendectomy Social History Smoking/Tobacco Use Status: Former Tobacco Use Smoking risk assessment performed?: Yes Alcohol Intake: current Alcohol Intake frequency: holidays/special occasions only Alcohol type: beer Drug use: Occasionally Substance use type: marijuana Do you feel safe at home: Yes Do you feel safe in your relationship?: Yes
--- NOTE | 2021-09-02 16:18 | W.PM.PROGNOT ---
Date of Service Date of service: 09/02/21 Time of Service: 16:19 Assessment and Plan Assessment and plan (1) Biliary dyskinesia: Status: Acute Assessment and plan: The patient is doing well post-op. Their pain is well controlled. They are having no nausea or vomiting. The pt is not having any chest pain or SOB, productive cough; no calf pain or swelling. The pt is making good urine. The pt pain is adequately controlled. The case was discussed with nursing and patient?s progress reviewed. All of the pt's home medications were addressed and adjusted accordingly for their oral intact status. HEENT: no jaundice. no eye pain/drainage/redness/swelling. Mild sore throat Cardio- NSR no chest pain, BP stable. Pulm: no sob or productive cough. no hemoptysis Incision- clean/dry. Dressing intact no excessive bleeding or drainage I discussed with the patient and/or there family about the findings in surgery and the pt's progress. We reviewed expectations for progress in the hospital; what the pt could expect for recovery time and length of stay. We discussed the importance of walking and pulmonary toilet to avoid blood clots and pneumonia. Continue current plans for pulmonary toilet, GI and DVT prophylaxis. We shall continue the current plan for pain management as it is at an appropriate level, and working well for the pt. Appropriate measures will be taken for constipation prevention, and this was also reviewed with the pt. The wound care plan was reviewed with nursing as well. see orders (2) Acute epigastric pain: Status: Acute (3) Abdominal pain: Status: Acute Qualifiers: Abdominal location: right upper quadrant Qualified Code(s): R10.11 - Right upper quadrant pain Objective Last Vital Signs Temp 36.3 C L 09/02/21 16:07 Pulse 78 09/02/21 16:07 Resp 25 H 09/02/21 16:07 BP 114/70 09/02/21 16:07 Pulse Ox 98 09/02/21 16:07 Laboratory Results - last 24 hr 08/31/21 09/02/21 10:55 09:30 Urine HCG, Qual Negative Lyme Disease Antibody Negative
[2021-09-02] MEDS: HYDROmorphone 2 MG/ML VIAL IVP ×3 (16:35→17:05)
--- NOTE | 2021-09-02 17:05 | ANES.POST_ITS ---
Postoperative Evaluation Date, Time and Location Date Performed: 09/02/21 Time Performed: 17:05 Patient Location: PACU Vital Signs Most Recent Imported Vital Signs: Most Recent Vital Signs Temp Pulse Resp BP Pulse Ox 36.4 C L 72 18 110/59 L 100 09/02/21 16:50 09/02/21 16:50 09/02/21 16:50 09/02/21 16:50 09/02/21 16:50 Pain Score Most Recent Pain Score: Most Recent Pain Score Pain Level [Right Upper 7 09/02/21 08:55 Abdomen] Pain Level 7 09/02/21 16:50 Assessment Mental Status: Arousable with meaningful communication Airway and Respiratory Function: Patent airway with normal (patient baseline) respiratory exam Cardiovascular Function: Hemodynamically Stable Hydration Status: Adequately Hydrated Nausea & Vomiting: Active Nausea or Vomiting Present Nausea and Vomiting Rula gement: Nausea and vomiting active, being addressed with medication Pain: Pain is tolerable per patient Peripheral Nerve Block: Patient did not receive a nerve block
[2021-09-02] MEDS: Pantoprazole 40 MG VIAL IVP (18:34)
[2021-09-02] MEDS: Enoxaparin 40 MG/0.4 ML SYR SC (18:34)
[2021-09-03] MEDS: MORPHine 2 MG/ML SYR IVP ×3 (00:52→04:16)
[2021-09-03] MEDS: Metoclopramide 10 MG/2 ML VIAL 5 MG IVP (02:28)
[2021-09-03] MEDS: Lactated Ringers 1,000 ML 75 ML IV (02:29)
[2021-09-03] MEDS: Ondansetron 4 MG/2 ML VIAL IVP ×3 (04:16→14:16)
[2021-09-03 05:43] LABS: HCT 35.9 % (36.0-46.0); HGB 12.1 g/dL (11.2-15.7); MCH 30.4 pg (27.0-33.0); MCHC 33.7 % (32.0-36.0); MCV 90.2 fL (80-95); MPV 10.1 fL (8.0-11.0); Platelet Count 198 10^3/uL (130-400); RBC 3.98 10^6/uL (3.93-5.22); RDW 11.6 % (11.7-14.6); RDW-SD 38.5 fL; WBC 14.95 10^3/uL (4.4-10.8)
[2021-09-03] MEDS: oxyCODONE 5 MG TAB PO ×2 (06:00→12:01)
[2021-09-03 07:52] VITALS: BP 134/78; PULSE 79; RESP 18; TEMP 38.1; O2SAT 99
[2021-09-03] MEDS: ACETAMINOPHEN 1,000 MG/100 ML BTL 400 MG IVPB (08:40)
--- NOTE | 2021-09-03 11:30 | PDOC.CMDIS ---
- If Service Date Differs Date of service: 09/03/21 Time of Service: 11:30 LACE Index Scoring Tool - Questions: Length of Stay (in days): 2 Acuity (Admit via E.D.?): Yes E.D. Visits: 2 - Answers: Total Score: 7 Risk of Readmission: Low Risk Care Management Discharge Reason for Hospitalization: Adominal Pain Discharge Plan: Discharge home via private vehicle with family. Follow up with community providers and discharge plan of care as prescribed. Patient will need a note to return to work. Patient/Family Education Needs: Review discharge instructions, limitations and plan to follow up with community providers. as me three.
[2021-09-03 12:00] VITALS: RESP 18
[2021-09-03] MEDS: Polyethylene Glycol 3350 17 GM PACKET PO (12:01)
--- NOTE | 2021-09-03 14:03 | PDOC.DSDIS_ITS ---
Discharge Plan Disposition Patient Disposition: HOME Condition: Stable Discharge Details Reason For Visit: Abdominal Pain Admit Date/Time: 08/31/21 13:42 Admit Provider: Elizabeth Stoddard Attending Provider: Elizabeth Stoddard Primary Care Provider: Sky Jensen Home Meds and New Rx's Prescriptions: Discontinued pantoprazole [Protonix] 20 mg tablet,delayed release (DR/EC) 20 mg PO BID 14 Days Qty: 28 RF: 0 Discharge Instructions Additional Instructions: Care after Gallbladder Surgery -Pain control: For the first 72 hours after surgery, take you pain meds continuously and not just when you have pain. Alternate Tylenol 1000mg by mouth every 8 hours, and Ibuprofen 600mg every 6 hours. Make sure you take ibuprofen with food and not on an empty stomach. Use the tramadol for break through pain- pain that is greater than a 7. - Use ICE! Ice really helps to keep the swelling down, and swelling causes pain. Twenty minutes on, and then off, continuously for the first 72hours. After the first 72hrs, you can just use the Tylenol, ibuprofen or Celebrex, and ice, when you have pain. If you are taking narcotic pain medication, follow the instructions on the label and do not drive. Pain medications can make you very constipated. Make sure you are moving your bowels daily. If not, take Miralax, milk of magnesia or magnesium citrate. - Anesthesia makes you very constipated. Take a dose of milk of magnesia the morning after surgery. ? Use an ice bag for the first 72 hours. This helps to decrease swelling, which causes pain. It is normal to be more sore/painful and swollen towards the end of the day and first thing in the morning. ? Gallbladder surgery can make you very nauseated; use Zofran for nausea, for the first 24 hours. The nausea generally stops after 24 hours. ? Use milk of magnesia or prune juice to prevent constipation (this is a particular side effect of pain medication and anesthesia). Do not allow yourself to become constipated. ? Avoid fatty or greasy foods; introduce these slowly, with care, after about 1 month. High-fat foods include: ? Foods that are fried, like [place] fries and potato chips ? High-fat meats, such as fink, bologna, sausage, ground beef, and ribs, pork products ? High-fat dairy products, such as cheese, ice cream, cream, whole milk, and sour cream ? Pizza ? Foods made with lard or butter ? Creamy soups or sauces ? Meat gravies ? Chocolate ? Oils, such as palm and coconut oil ? Skin of chicken or turkey Nuts and nut butters [place] ? Start out eating very small, bland amounts of food. Do not take pain pills on an empty stomach. - You will notice purple discoloration around the incisions. This is the ?skin glue?. This will wear off on its own. It is OK to shower after 24hrs. You do not need to cover the incisions. - -You should walk frequently, gradually, increasing the distance. You may climb stairs, just go slowly. ? Do not go swimming or sit in a hot tub for two weeks. ? There are no stitches to remove. ? Do not drive your car x72hrs and then only if you have no pain and can move freely. Do not drive if you are taking pain narcotic pain medications. ? You may resume sexual activity whenever pain and soreness subside, usually in 2 weeks. ? Do no lift anything over 5 lbs. for two weeks. ? You may return to work in one week, or when you feel able, provided you do not have to do any heavy lifting or prolonged standing. ? You should return to Dr. Panda?s office for a post-op appointment about one week after surgery. Please call the Surgical Clinic at: [phone] to schedule an appointment. When to Call the Office: ? If the incision becomes red or swollen, or there is more than a little drainage from it. ? If you develop a temperature higher than 100.5 F. ? If your eyes turn yellow ? Vomiting and can?t keep fluids down Activity:: see above Equipment/Supplies:: No Equipment Needed Diet:: low fat DS: Diagnosis Discharge Diagnosis (1) Biliary dyskinesia: Status: Acute (2) Acute epigastric pain: Status: Acute (3) Abdominal pain: Status: Acute
--- NOTE | 2021-09-03 14:03 | W.PM.PROGNOT ---
Date of Service Date of service: 09/03/21 Time of Service: 14:03 Assessment and Plan Assessment and plan (1) Biliary dyskinesia: Status: Acute Assessment and plan: Ms Cruz is POD #1 s/p lap. Zenaida with Dr. Panda. She is doing well Mild leukocytosis this am which is most likely inflammatory response to surgery. She is eating and drinking and her pain is controlled on tylenol and oxycodon Subjective Subjective Interval history since last seen: Ms Cruz is feeling a little better this afternoon since she has been up and walking. She has tolerated a diet and she is tolerating Oxycodon for pain. No N/V. Had a slight fever this am. None since. Exam Const General: cooperative, comfortable and no acute distress Orientation: alert and oriented x3 Resp Effort & Inspection: normal respiratory effort Auscultation: clear to auscultation bilaterally Cardio Rate: regular rate Rhythm: regular rhythm GI Inspection: incision (c/d/i) Palpation: soft, no hepatosplenomegaly and tender (appropriately tender around the incisions) Objective Last Vital Signs Temp 100.6 F H 09/03/21 07:52 Pulse 79 09/03/21 07:52 Resp 18 09/03/21 07:52 BP 134/78 09/03/21 07:52 Pulse Ox 99 09/03/21 07:52 Laboratory Results - last 24 hr 09/03/21 05:16 WBC 14.95 H RBC 3.98 Hgb 12.1 Hct 35.9 L MCV 90.2 MCH 30.4 MCHC 33.7 RDW 11.6 L Plt Count 198 MPV 10.1
[2021-09-03] MEDS: Acetaminophen 325 MG TAB 650 MG PO (16:17)
[2021-09-03 16:21] VITALS: BP 118/78; PULSE 78; RESP 17; TEMP 37.2; O2SAT 97
[2021-09-03 19:13] LABS: Anaplasma phagocytophilum Negative (Negative); B. miyamotoi PCR Negative (Negative); Babesia divergens/MO-1 Negative (Negative); Babesia duncani Negative (Negative); Babesia microti Negative (Negative); Ehrlichia chaffeensis Negative (Negative); Ehrlichia ewingii/canis Negative (Negative); Ehrlichia muris eauclairensis Negative (Negative)
== END 2021-09-03 16:25 | disposition home or self-care (01) | DRG 419 ==
LOC: ER 14:12 → MS 16:23
PROVIDERS: Surgery; Admitting Provider Surgery; Emergency Provider Emergency Medicine; PCP Internal Medicine; Visit Provider Surgery
PROC: 0FT44ZZ Resection of Gallbladder, Percutaneous Endoscopic Approach (ICD-10-PCS; CPT 47562; principal; 2021-09-02 14:00)
DX: K82.8 Other specified diseases of gallbladder (principal); K21.9 Gastro-esophageal reflux disease without esophagitis; F90.9 Attention-deficit hyperactivity disorder, unspecified type; Z87.891 Personal history of nicotine dependence
CPT/HCPCS: 47562; 36415; 71275; 74177; 78227; 80053; 80076; 83690; 85027; 87040; 87449; 87635; 87798; 96361; 96374; 96375; 96376; 99285; J1650; 81003; 81015; 81025; 83605; 83735; 84443; 85025; 86618; 87086; 88304; J0131; J0690; J1100; J2250; J2270; J2405; J2704; J2765; J3010; J3475; J3490

== ENCOUNTER 2021-10-03 09:37 | Outpatient (REF) | payer MEDICAID, SELFPAY ==
[2021-10-05 15:42] LABS: COVID-19 RT-PCR UVMMC Result Negative (Negative)
== END 2021-10-03 09:38 | disposition home or self-care (01) ==
LOC: NCHCN 09:37
PROVIDERS: PCP Internal Medicine; Visit Provider Physician Assistant
DX: Z20.822 Contact with and (suspected) exposure to COVID-19 (principal)
CPT/HCPCS: U0003

== ENCOUNTER 2021-12-15 09:35 | Outpatient (REF) | payer MEDICAID, SELFPAY ==
[2021-12-17 12:03] LABS: COVID-19 RT-PCR UVMMC Result Negative (Negative)
== END 2021-12-15 09:36 | disposition home or self-care (01) ==
LOC: NCHCN 09:35
PROVIDERS: PCP Internal Medicine; Visit Provider Internal Medicine
DX: Z20.822 Contact with and (suspected) exposure to COVID-19 (principal)
CPT/HCPCS: U0003

== ENCOUNTER 2022-08-05 12:03 | Emergency (ER) | payer MEDICAID, SELFPAY ==
[2022-08-05 12:22] VITALS: BP 134/69; PULSE 71; TEMP 36.8; O2SAT 97
--- NOTE | 2022-08-05 12:45 | ED.GENADUL_ITS ---
Discharge Plan Disposition Patient Disposition: Home Condition: Stable Discharge Details Clinical Impression: Abdominal pain Primary Care Provider: Sky Jensen ED Provider: Wally Casey Home Meds and New Rx's Prescriptions: New ondansetron 4 mg tablet,disintegrating 4 mg PO TID PRN3 Days Qty: 9 0RF Continued epinephrine 0.3 mg/0.3 mL auto-injector 0.3 mg IM DIRECTED PRN Label Comments: INJECT CONTENTS OF 1 PEN NEEDED FOR ALLERGIC REACTION Discharge Instructions Instructions: Abdominal Pain (ED) Additional Instructions: Work-up in the ER at this time does not reveal any obvious emergent process. It is unclear exactly where your pain is coming from. We discussed obtaining CT imaging but using shared decision making, at this time opted not to pursue CT imaging. Zofran as directed. Clear liquid diet, advance as tolerated. Please watch for new or worsening symptoms and return to the ER for any concerns. Lastly, please contact your primary care provider later today or tomorrow to discuss your ER visit need for outpatient reevaluation Medical Decision Making This is a 32-year-old female with a past medical history of GERD, cholecystectomy and August 2021, Glenn fundoplication, appendectomy, hernia repair, presenting for right sided abdominal pain associate with mild nausea, vomiting x1 this morning, feeling bloated, that began a few days ago. Today she states that she had morataya-colored stool, spoke with a colleague and there was concern for potential pancreatitis. Patient denies alcohol use and denies history of pancreatitis. Clinically she appears well, nontoxic, hemodynamically stable. Abdomen is soft, tender but certainly nonsurgical. Plan is to obtain IV access, give IV fluid, Zofran, Mylanta, obtain routine screening laboratory values and reassess. Patient reports Zofran has helped greatly with her nausea, she continues to have some discomfort but is improving CBC, CMP, lipase, urinalysis all unremarkable. Discussed work-up with the patient. Thus far work-up is unremarkable for any clear etiology of her discomfort. Given her pain is in her right upper quadrant and she has already had a cholecystectomy, ultrasound likely little value. We discussed obtaining CT imaging of her abdomen pelvis with IV contrast. Using shared decision making, patient reports that she has had multiple CTs in the past and would like to avoid CT imaging today. She reports that she is provided a prescription for Zofran she will likely be able to go home safely. She understands that she may need to return to the ER for new or evolving symptoms and CT may be indicated Standard discharge and return precautions were provided. Patient understands, is agreeable to this plan, and has no additional questions or concerns upon discharge. This documentation was generated using [employer] system, please disregard any oddities of phrase or misspellings. Medical Records Medical records reviewed: Yes I reviewed the patient's medical records. Lab Data Lab results reviewed: Yes I reviewed the patient's lab results. Labs: Laboratory Tests Range/Units 08/05/22 08/05/22 08/05/22 12:55 12:55 14:06 WBC (4.4-10.8) 10^3/uL 9.19 RBC (3.93-5.22) 10^6/uL 4.00 Hgb (11.2-15.7) g/dL 12.5 Hct (36.0-46.0) % 37.3 MCV (80-95) fL 93 MCH (27.0-33.0) pg 31.3 MCHC (32.0-36.0) % 33.5 RDW (11.7-14.6) % 11.9 Plt Count (130-400) 10^3/uL 220 MPV (8.0-11.0) fL 9.9 Immature Gran % 0.2 Neutrophils % 62.9 Lymphocytes % 28.7 Monocytes % 7.0 Eosinophils % 0.5 Basophils % 0.7 Nucleated RBC % (0.0-0.3) % 0.0 Absolute Neutrophils (1.2-6.7) 10^3/uL 5.78 Absolute Lymphocytes (1.2-3.4) 10^3/uL 2.64 Absolute Monocytes (0.1-0.8) 10^3/uL 0.64 Absolute Eosinophils (0.0-0.7) 10^3/uL 0.05 Absolute Basophils (0.0-0.2) 10^3/uL 0.06 Sodium (136-145) mmol/L 140 Potassium (3.5-5.1) mmol/L 3.8 Chloride (98-107) mmol/L 103 Carbon Dioxide (21.0-32.0) mmol/L 28.7 Anion Gap (3-11) mmol/L 8.3 BUN (7-18) mg/dL 16 Creatinine (0.55-1.02) mg/dL 0.8 Est GFR (CKD-EPI 2020) (mL/min/1.73m2) 101.59 Glucose (74-106) mg/dL 92 Calcium (8.5-10.1) mg/dL 8.9 Total Bilirubin (0.2-1.0) mg/dL 0.4 AST (15-37) U/L 20 ALT (14-59) U/L 19 Alkaline Phosphatase (46-116) U/L 64 Total Protein (6.4-8.2) g/dL 7.5 Albumin (3.4-5.0) g/dL 4.3 Lipase (73-393) U/L 96 Urine Color (Yellow) Yellow Urine Clarity (Clear) Clear Urine pH (5-8) 7.0 Ur Specific [place] (1.005-1.025) 1.015 Urine Protein (Negative) mg/dL Negative Urine Ketones (Negative) mg/dL Negative Urine Blood (Negative) Negative Urine Nitrite (Negative) Negative Urine Bilirubin (Negative) Negative Urine Urobilinogen (Up TO 0.2) EU/dL 0.2 Ur Leukocyte Esterase (Negative) Negative Urine Glucose (Negative) mg/dL Negative Sign Out No HPI General Mode of arrival: ambulatory . Date/Time Provider Initiated Documentation: 08/05/22 12:41 . Limitations to Documentation: no limitations . Information obtained by: patient . History of Present Illness 32 year old F presents to the emergency department with the chief complaint of Abd pain, described as moderate, with intensity rated at 5. Quality is described as aching, and is localized to the abdomen and right (upper). Patient reports no radiation. Patient started experiencing this day(s) (2) and it has been constant. No relieving factors improve symptom(s), No exacerbating factors reported . Patient notes nausea/vomiting (nausea, vomit x 1) and other (andrea stool). Patient did receive the following treatments prior to arrival, none Related Data Home Medications Medication Instructions Recorded Confirmed epinephrine 0.3 mg/0.3 mL 0.3 mg IM DIRECTED PRN 08/05/22 08/05/22 injection, auto-injector ondansetron 4 mg disintegrating 4 mg PO TID PRN 3 days #9 tabs 08/05/22 tablet Previous Rx's Medication Instructions Recorded ondansetron 4 mg disintegrating 4 mg PO TID PRN 3 days #9 tabs 08/05/22 tablet Allergies Allergy/AdvReac Type Severity Reaction Status Date / Time kiwi Allergy Severe Hives Unverified 08/05/22 13:02 lidocaine Allergy Severe Itching Unverified 08/05/22 13:02 adhesive Allergy Intermediate Topical Unverified 08/05/22 13:02 Irritation lactose Allergy Unknown Unverified 08/05/22 13:02 ibuprofen AdvReac Intermediate bloody nose Unverified 08/05/22 13:02 banana Allergy Uncoded 08/05/22 13:02 General Stated Complaint: Abd Prob JUSTO: 3 Review of Systems Constitutional Constitutional: Denies fever(s) Cardiovascular Cardiovascular: Denies chest pain and Denies dyspnea Respiratory Respiratory: Denies cough and Denies dyspnea Gastrointestinal Gastrointestinal: Reports abdominal pain, Denies melena, Reports bloating, Denies hematochezia, Denies constipation, Denies diarrhea, Reports loose stools (chronic), Reports nausea and Reports vomiting Genitourinary Genitourinary: Denies abnormal vaginal bleeding, Denies dysuria and Denies vaginal discharge Musculoskeletal Musculoskeletal: Denies back pain Integumentary/Breasts Skin/Breast: Denies rash PFSH All Active Problems (Updated 08/05/22 @ 14:39 by GALI Quijano) Biliary dyskinesia (Acute) Acute epigastric pain (Acute) Abdominal pain (Acute) Fever (Acute) Closed nondisplaced fracture of styloid process of left radius (Acute) Medical History ADHD (attention deficit hyperactivity disorder) GERD (gastroesophageal reflux disease) Surgical History Dilation and curettage Ligation of fallopian tube Glenn Fundoplication S/P appendectomy Social History Smoking/Tobacco Use Status: Former Tobacco Use Smoking risk assessment performed?: Yes Alcohol Intake: current Alcohol Intake frequency: holidays/special occasions only Alcohol type: beer Drug use: Occasionally Substance use type: marijuana Do you feel safe at home: Yes Do you feel safe in your relationship?: Yes Exam Const General: cooperative, healthy appearing, comfortable and no acute distress Orientation: alert and awake [facility] Head: normal to inspection, normocephalic and atraumatic Face and sinus: normal facial exam Mouth: moist mucous membranes Eyes General: appearance normal, both eyes and all related structures Conjunctivae: conjunctivae normal Neck Neck: normal visual inspection, full ROM, no meningeal signs, trachea midline a nd supple Resp Effort & Inspection: normal respiratory effort and able to speak in complete sentences Auscultation: clear to auscultation bilaterally Cardio Rate: regular rate Rhythm: regular rhythm GI Inspection: normal to inspection Palpation: soft, not firm, no guarding, no pulsatile masses and tender in the epigastrum (mild) and in the RUQ (mild); not at McBurney's point, Colon's sign negative and with no rebound tenderness Auscultation: normal bowel sounds Back/Spine/Pelvis Back: no CVA tenderness and No back tenderness Skin General skin exam: no rashes or lesions noted Neuro General: patient alert, patient awake, moves all extremities and no focal motor deficits Cognition: normal cognition Speech: speech normal Gait: normal gait Motor: muscle tone normal throughout Sensory Exam: no sensory deficits noted Psych Appearance: grossly normal Mental Status: mental status grossly normal Course Vital Signs Vital signs: Vital Signs Temperature 36.8 C 08/05/22 12:22 Pulse 71 08/05/22 12:22 Blood Pressure 134/69 08/05/22 12:22 Pulse Oximetry 97 08/05/22 12:22 Temperature 36.8 C 08/05/22 12:22 Temperature Source Temporal Artery Scan 08/05/22 12:22 Pulse 71 08/05/22 12:22 Blood Pressure 134/69 08/05/22 12:22 Blood Pressure Position Sitting 08/05/22 12:22 Pulse Oximetry 97 08/05/22 12:22 Oxygen Delivery Method Room Air 08/05/22 12:22 Oxygen Flow Rate 0 08/05/22 12:22 Pain Level 6 08/05/22 12:22
[2022-08-05 13:05] LABS: Abs Immature Grans 0.02 10^3/uL (0.0-0.06); Absolute Basophil Count 0.06 10^3/uL (0.0-0.2); Absolute Eosinophil Count 0.05 10^3/uL (0.0-0.7); Absolute Lymphocyte Count 2.64 10^3/uL (1.2-3.4); Absolute Monocyte Count 0.64 10^3/uL (0.1-0.8); Absolute Neutrophil Count 5.78 10^3/uL (1.2-6.7); Basophils % 0.7; Eosinophils % 0.5; HCT 37.3 % (36.0-46.0); HGB 12.5 g/dL (11.2-15.7); Immature Grans % 0.2; Lymphocytes % 28.7; MCH 31.3 pg (27.0-33.0); MCHC 33.5 % (32.0-36.0); MCV 93 fL (80-95); MPV 9.9 fL (8.0-11.0); Neutrophils % 62.9; Platelet Count 220 10^3/uL (130-400); RDW 11.9 % (11.7-14.6); RDW-SD 40.8 fL; WBC 9.19 10^3/uL (4.4-10.8)
[2022-08-05 13:23] LABS: ALT 19 U/L (14-59); AST 20 U/L (15-37); Albumin 4.3 g/dL (3.4-5.0); Alkaline Phosphatase 64 U/L (46-116); Anion Gap 8.3 mmol/L (3-11); BUN 16 mg/dL (7-18); Bilirubin, Total 0.4 mg/dL (0.2-1.0); CO2 28.7 mmol/L (21.0-32.0); CREATININE 0.8 mg/dL (0.55-1.02); Calcium 8.9 mg/dL (8.5-10.1); Chloride 103 mmol/L (98-107); Estimated GFR 101.59 (mL/min/1.73m2); Glucose 92 mg/dL (74-106); Lipase 96 U/L (73-393); Potassium 3.8 mmol/L (3.5-5.1); Sodium 140 mmol/L (136-145); Total Protein 7.5 g/dL (6.4-8.2)
[2022-08-05] MEDS: Ondansetron 4 MG/2 ML VIAL IVP (13:33)
[2022-08-05] MEDS: Normal Saline 1,000 ML 1000 ML IV (13:33)
[2022-08-05] MEDS: Dicyclomine 20 MG TAB PO (14:08)
[2022-08-05 14:13] LABS: Bilirubin Negative (Negative); Blood Negative (Negative); Clarity Clear (Clear); Glucose Negative (Negative); Ketones Negative (Negative); Leukocyte Esterase Negative (Negative); Nitrite Negative (Negative); Specific Gravity 1.015 (1.005-1.025); Urobilinogen 0.2 EU/dL (Up TO 0.2)
[2022-08-05] MEDS: Mylanta Suspension 30 ML CUP PO (15:10)
== END 2022-08-05 15:08 | disposition home or self-care (01) ==
PROVIDERS: Emergency Provider Physician Assistant; PCP Internal Medicine
DX: R10.11 Right upper quadrant pain (principal); R11.2 Nausea with vomiting, unspecified; R19.5 Other fecal abnormalities
CPT/HCPCS: 36415; 80053; 81025; 83690; 96361; 96374; 99284; 81003; 85025; 99283; J2405

== ENCOUNTER 2022-08-07 15:08 | Emergency (ER) | payer MEDICAID, SELFPAY ==
--- OUTSIDE RECORDS SUMMARY | 2022-08-07 15:15 | XMS_ITS | Encounter Summary ---
:1990 Author Organization [facility] Address [address] [place] [address] Care Team Providers Name Role Phone None, Provider Primary Care Provider Unavailable Encounter Details Date Type Department Care Team Description 06/09/2021 Lab Requisition [facility] Outr Resulting Lab, Pathology & Laboratory Provider [facility] [address] [place] [address] Social History Tobacco Use Types Packs/Day Years Used Date Smoking Tobacco: Never Assessed Sex Assigned at Date Recorded Not on file documented as of this encounter Plan of Treatment Not on filedocumented as of this encounter Procedures Procedure Name Priority Date/Time Associated Diagnosis Comme nts HEPATITIS B SURFACE Routine 06/09/2021 15:27 Resu lts for this ANTIBODY EDT procedure are i n the results section. documented in this encounter Results HEPATITIS B SURFACE ANTIBODY (06/09/2021 15:27 EDT) Analysis Performed At [facility] Time Signature Hep B Surface Ab, 63.8 See Note 06/10/2021 [facility] Quantitative mIU/mL 9:25 EDT [facility] Comment: Reference Range for Hep B Surface Ab, Qu ant: Positive: >= 10.0 mIU/mL Negative: ??< 10.0 mIU/mL Patient is presumed to be immune to infe ction with Hepatitis B Virus. Hep B Surface Ab, Positive See Note 06/10/2021 9:25 EDT [facility] Qualitative LABORATORY SERVICE S Comment: Reference Range for Hep B Surface Ab, Qu al: Unvaccinated: ??Negative Vaccinated: ??Positive Specimen Anatomical Collection Method Collection Time Receive d Time (Source) Location / / Volume Laterality Blood VENOUS BLOOD / 06/09/2021 15:27 Unknown EDT 21:10 EDT Provider Outr Resulting Lab CHEMISTRY & BLOOD GAS KAMI Weinstein Organization Address City/State/ZIP Code Phon e Number [facility] [address] [place] [address] SERVICES documented in this encounter Visit Diagnoses Not on filedocumented in this encounter Care Teams Beater Out Relationship Specialty Start Date End Date None, Provider PCP - General 10/02/15 documented as of this encounter
--- OUTSIDE RECORDS SUMMARY | 2022-08-07 15:15 | XMS_ITS | Encounter Summary ---
:1990 Author Organization [facility] Address [address] [place] [address] Care Team Providers Name Role Phone None, Provider Primary Care Provider Unavailable Encounter Details Date Type Department Care Team Description 08/28/2020 Lab Requisition [facility] Center Outr Resulting Lab, Pathology & Laboratory Provider [facility] [address] [place] [address] Social History Tobacco Use Types Packs/Day Years Used Date Smoking Tobacco: Never Assessed Sex Assigned at Date Recorded Not on file documented as of this encounter Plan of Treatment Not on filedocumented as of this encounter Procedures Procedure Name Priority Date/Time Associated Diagnosis Comme nts COVID-19 TEST [facility] Today 08/28/2020 13:37 LAB PCR EST COVID-19 TESTING Routine 08/28/2020 13:37 Results for this EST procedure are i n the results section. documented in this encounter Results COVID-19 TEST [facility] LAB PCR (08/28/2020 13:37 EST) Specimen Anatomical Location Collection Method Collection Time Received Time (Source) / Laterality / Volume Swab ENTIRE NASOPHARYNX 08/28/2020 13:37 08/29 8:37 / Unknown EST EST Provider Outr Resulting Lab MICROBIOLOGY - GENERAL ORD ERABLES Performing Organization Address City/State/ZIP Code Phon e Number [facility] [address] [place] [address] SERVICES COVID-19 TESTING (08/28/2020 13:37 EST) Analysis Performed At [facility] Time Signature COVID-19 Negative Negative 08/30/2020 [facility] rt-PCR Result 15:14 EST [facility]ENTER [facility] Comment: Negative results do not preclude 2019-ID oV infection and should not be used as the sole basis for treatment or other patient management decisions. Negative results must be combined with clinical observa tions, patient history, and epidemiologi josephine information. This test was developed and its performa nce characteristics determined by [facility]. It has not been cleared or approved by the US Food and Drug Administration. FDA does not require this test to go through premarket FDA review. This test is used for clinical purposes. It should not be regarded as investigational or for research. This laboratory is certified under the Clinical Laboratory Improvement Amendm ents (CLIA) as qualified to perform high complexity clinical laboratory testing. This test is based on the CDC COVID-19 E mergency Use Authorization (EUA) assay, with minor modification as defined by the FDA Performed on the [facility] 7 Flex. Performing Lab [facility] Hospital Lab 08/30/2020 15:14 EST [facility] SERVICES Specimen Anatomical Collection Method Collection Time Receive d Time (Source) Location / / Volume Laterality Swab 08/28/2020 13:37 08/29/2020 8:37 EST EST Provider Outr Resulting Lab MICROBIOLOGY - GENERAL ORD ERABLES Performing Organization Address City/State/ZIP Code Phon e Number [facility] [address] [place] [address] SERVICES documented in this encounter Visit Diagnoses Not on filedocumented in this encounter Care Teams Senior Nurse Manager Relationship Specialty Start Date End Date None, Provider PCP - General 10/02/15 documented as of this encounter
--- OUTSIDE RECORDS SUMMARY | 2022-08-07 15:15 | XMS_ITS | Encounter Summary ---
:1990 Author Organization [facility] Address [address] [place] [address] Care Team Providers Name Role Phone None, Provider Primary Care Provider Unavailable Encounter Details Date Type Department Care Team Description 12/15/2021 Lab Requisition [facility] Center Outr Resulting Lab, Pathology & Laboratory Provider [facility] [address] [place] [address] Social History Tobacco Use Types Packs/Day Years Used Date Smoking Tobacco: Never Assessed Sex Assigned at Date Recorded Not on file documented as of this encounter Plan of Treatment Not on filedocumented as of this encounter Procedures Procedure Name Priority Date/Time Associated Diagnosis Comme nts COVID-19 TEST [facility] Today 12/15/2021 9:00 EDT LAB PCR COVID-19 TESTING Routine 12/15/2021 9:00 EDT Resu lts for this procedure are i n the results section. documented in this encounter Results COVID-19 TEST [facility] LAB PCR (12/15/2021 9:00 EDT) Specimen Anatomical Collection Method Collection Time Receive d Time (Source) Location / / Volume Laterality Swab 12/15/2021 9:00 12/16/2021 EDT 16:32 EDT Provider Outr Resulting Lab MICROBIOLOGY - GENERAL ORD ERABLES Performing Organization Address City/State/ZIP Code Phon e Number [facility] [address] [place] [address] SERVICES COVID-19 TESTING (12/15/2021 9:00 EDT) Analysis Performed At [facility] logist Time Signature COVID-19 Negative Negative 12/17/2021 [facility] rt-PCR Result 11:58 EDT [facility]ENTER [facility] Comment: This test has not been FDA cleared or ap proved. This test has been authorized by FDA under an EUA for use by authorized laboratories. This test has been authorized only for detection of nucleic acid fro m 2019-nCoV, not for any other viruses o r pathogens. This test is only authorized for the duration of the declaration that circumstances exist justifying the authorization of emergency use of in vitro d iagnostic tests for detection and/or jamie gnosis of 2019-nCoV under section 564(b)(1) of Act, 21 U.S.C ?? 360bbb-3(b) (1), unless the authorization is terminated or revoked sooner. Negative results do not preclude 2019-nC oV infection and should not be used as the sole basis for treatment or other patient management decisions. Negative results must be combined with clinical observa tions, patient history, and epidemiologi josephine information. Testing was performed using the rebeca SA RS-CoV-2 assay ([employer] on the [facility] [facility] System Performing Lab [facility] [address] [facility] 12/17/2021 11:58 E DT [facility] Lab LABORATORY SERVICES Specimen Anatomical Collection Method Collection Time Receive d Time (Source) Location / / Volume Laterality Swab 12/15/2021 9:00 12/16/2021 EDT 16:32 EDT Provider Outr Resulting Lab MICROBIOLOGY - GENERAL ORD ERABLES Performing Organization Address City/State/ZIP Code Phon e Number [facility] [address] [place] [address] SERVICES documented in this encounter Visit Diagnoses Not on filedocumented in this encounter Care Teams Tool Storage Attendant Relationship Specialty Start Date End Date None, Provider PCP - General 10/02/15 documented as of this encounter
--- OUTSIDE RECORDS SUMMARY | 2022-08-07 15:15 | XMS_ITS | Encounter Summary ---
:1990 Author Organization [facility] Address [address] [place] [address] Care Team Providers Name Role Phone None, Provider Primary Care Provider Unavailable Encounter Details Date Type Department Care Team Description 06/10/2021 Lab Requisition [facility] Center Outr Resulting Lab, Pathology & Laboratory Provider [facility] [address] [place] [address] Social History Tobacco Use Types Packs/Day Years Used Date Smoking Tobacco: Never Assessed Sex Assigned at Date Recorded Not on file documented as of this encounter Plan of Treatment Not on filedocumented as of this encounter Procedures Procedure Name Priority Date/Time Associated Diagnosis Comme nts COVID-19 TEST [facility] Today 06/09/2021 9:00 EDT LAB PCR COVID-19 TESTING Routine 06/09/2021 9:00 EDT Resu lts for this procedure are i n the results section. documented in this encounter Results COVID-19 TEST [facility] LAB PCR (06/09/2021 9:00 EDT) Specimen Anatomical Location Collection Method Collection Time Received Time (Source) / Laterality / Volume Swab ENTIRE NASOPHARYNX 06/09/2021 9:00 2020 / Unknown EDT 16:03 EDT Provider Outr Resulting Lab MICROBIOLOGY - GENERAL ORD ERABLES Performing Organization Address City/State/ZIP Code Phon e Number [facility] [address] [place] [address] SERVICES COVID-19 TESTING (06/09/2021 9:00 EDT) Analysis Performed At [facility] Time Signature COVID-19 Negative Negative 06/11/2021 [facility] rt-PCR Result 17:00 EDT CENTER [facility] Comment: This test [...] and its performa nce characteristics determined by [facility]. It has not been cleared or [...] testing. This test is based on the [facility] [place][NOTE 2] COVID-19 E mergency Use Authorization (EUA) assay, with minor modification as defined by the FDA Performed on the [employer] 7 Flex RT-PCR System. This test was developed and its performa nce characteristics determined by [facility]. It has not been cleared or [...] testing. This test is based on the [facility] [place]NOTE 2] COVID-19 E mergency Use Authorization (EUA) assay, with minor modification as defined by the FDA Performed on the [employer] 7 Pro RT-PCR System. Performing Lab [facility] Lab 06/11/2021 17:00 EDT [facility] SERVICES Specimen Anatomical Collection Method Collection Time Receive d Time (Source) Location / / Volume Laterality Swab 06/09/2021 9:00 06/10/2021 EDT 16:03 EDT Provider Outr Resulting Lab MICROBIOLOGY - GENERAL ORD ERABLES Performing Organization Address City/State/[facility] Code Phon e Number [facility] [address] [place] [address] SERVICES documented in this encounter Visit Diagnoses Not on filedocumented in this encounter Care Teams Janitor Head Relationship Specialty Start Date End Date None, Provider PCP - General 10/02/15 documented as of this encounter
--- OUTSIDE RECORDS SUMMARY | 2022-08-07 15:15 | XMS_ITS | Encounter Summary ---
:1990 Author Organization [facility] Address [address] [place] [address] Care Team Providers Name Role Phone None, Provider Primary Care Provider Unavailable Encounter Details Date Type Department Care Team Description 09/25/2020 Lab Requisition [facility] Outr Resulting Lab, Pathology & Laboratory Provider [facility] [address] [id number] Social History Tobacco Use Types Packs/Day Years Used Date Smoking Tobacco: Never Assessed Sex Assigned at Date Recorded Not on file documented as of this encounter Plan of Treatment Not on filedocumented as of this encounter Procedures Procedure Name Priority Date/Time Associated Comments Diagnosis DO NOT ORDER Today 09/25/2020 9:00 EST Results for this STANDALONE - BROAD procedure are in COVID TEST the results section. COVID-19 TESTING Routine 09/25/2020 9:00 EST Resu lts for this procedure are i n the results section. documented in this encounter Results DO NOT ORDER STANDALONE - BROAD COVID TEST (09/25/2020 9:00 EST) Analysis Performed At [facility] Time Signature COVID-19 NEGATIVE Negative 09/27/2020 BROAD rt-PCR Result 8:27 EST [facility] Comment: 2019-novel Coronavirus (2019-nCoV) not d etected by the qRT-PCR assay. Consider testing for other respiratory viruses or re-collecting for 2019-nCoV testing. Note: Optimum timing for peak viral levels du ring infections caused by 2019-nCoV have not been determined. Collection of multiple specimens from the same patient may be necessary to detect the virus. Limitations Positive results are indicative of activ e infection with SARS-CoV-2 but do not rule out bacterial infection or co-infection with other viruses. The agent detected may not be the definite cause of diseas e. In addition, detection of viral RNA m ay not indicate the presence of infectious virus or that SARS-CoV-2 is the causative agent for clinical symptoms. Negative results do not preclude SARS-Co V-2 infection and should not be used as the sole basis for patient management decisions. Negative results must be combined with clinical observations, patient his tory, and epidemiological information. F alse negative results may also occur if amplification inhibitors are present in the specimen or if inadequate numbers of organisms are present in the specimen. Op timum specimen types and timing for peak viral levels during infections caused by SARS-CoV-2 have not been fully determined. Collection of multiple specimens (types and time points) from the same patient may be necessary to detect the virus. The test was validated for use with uppe r respiratory specimens obtained via nasopharyngeal or oropharyngeal swabs in VTM, UTM, M4, M5, M6, saline, and MTM media. The performance of this test has not be en established for other specimens. Spec imens collected using other FDA recommended Specimen Collection Materials listed in the FDA COVID-19 [employer] communication (December 14, 2019) are pr ocessed with the caveat that they were n ot all validated for use with this test and the result must be interpreted in this context. Furthermore, a false negative results may occur if a specimen is improperly collected, transported or handled. If the virus mutates in the RT-PCR targe t region, SARS-CoV-2 may not be detected or may be detected less predictably. Inhibitors or other types of interferenc e may produce a false negative result. An interference study evaluating the effect of common cold medications was not performed. This test is not FDA-cleared but its per formance characteristics were established by our CLIA-certified, CAP-accredited, high complexity laboratory in accordance with CLIA regulations, College of [employer] an Pathologists (CAP) guidelines (Nov), and FDA guidance (Nov 18, 2019). This test is only for use under the Food and Drug Administration's Emergency Use Authorization. Specimen Anatomical Location Collection Method Collection Time Received Time (Source) / Laterality / Volume Swab ENTIRE NASOPHARYNX 09/25/2020 9:00 2020 / Unknown EST 20:51 EST Provider Outr Resulting Lab MICROBIOLOGY - GENERAL ORD ERABLES Performing Organization Address City/State/ZIP Code Phon e Number [facility] ME COVID-19 TESTING (09/25/2020 9:00 EST) Analysis Performed At [facility] Time Signature COVID-19 NEGATIVE Negative 09/27/2020 BROAD rt-PCR Result 9:38 EST [facility] Comment: 2019-novel Coronavirus (2019-nCoV) not d etected by the qRT-PCR assay. Consider testing for other respiratory viruses or re-collecting for 2019-nCoV testing. Note: Optimum timing for peak viral levels du ring infections caused by 2019-nCoV have not been determined. Collection of multiple specimens from the same patient may be necessary to detect the virus. Limitations Positive results are indicative of activ e infection with SARS-CoV-2 but do not rule out bacterial infection or co-infection with other viruses. The agent detected may not be the definite cause of diseas e. In addition, detection of viral RNA m ay not indicate the presence of infectious virus or that SARS-CoV-2 is the causative agent for clinical symptoms. Negative results do not preclude SARS-Co V-2 infection and should not be used as the sole basis for patient management decisions. Negative results must be combined with clinical observations, patient his tory, and epidemiological information. F alse negative results may also occur if amplification inhibitors are present in the specimen or if inadequate numbers of organisms are present in the specimen. Op timum specimen types and timing for peak viral levels during infections caused by SARS-CoV-2 have not been fully determined. Collection of multiple specimens (types and time points) from the same patient may be necessary to detect the virus. The test was validated for use with uppe r respiratory specimens obtained via nasopharyngeal or oropharyngeal swabs in VTM, UTM, M4, M5, M6, saline, and MTM media. The performance of this test has not be en established for other specimens. Spec imens collected using other FDA recommended Specimen Collection Materials listed in the FDA COVID-19 [employer] communication (December 14, 2019) are pr ocessed with the caveat that they were n ot all validated for use with this test and the result must be interpreted in this context. Furthermore, a false negative results may occur if a specimen is improperly collected, transported or handled. If the virus mutates in the RT-PCR targe t region, SARS-CoV-2 may not be detected or may be detected less predictably. Inhibitors or other types of interferenc e may produce a false negative result. An interference study evaluating the effect of common cold medications was not performed. This test is not FDA-cleared but its per formance characteristics were established by our CLIA-certified, CAP-accredited, high complexity laboratory in accordance with CLIA regulations, College of [employer] an Pathologists (CAP) guidelines (Nov), and FDA guidance (Nov 18, 2019). This test is only for use under the Food and Drug Administration's Emergency Use Authorization. Performing Lab [employer] 09/27/2020 9:38 EST [facility] SERVICES Specimen Anatomical Collection Method Collection Time Receive d Time (Source) Location / / Volume Laterality Swab 09/25/2020 9:00 09/25/2020 EST 20:51 EST Provider Outr Resulting Lab MICROBIOLOGY - GENERAL ORD ERABLES Performing Organization Address City/State/ZIP Code Phon e Number [facility] [address] [place] [address] SERVICES [facility] [place] documented in this encounter Visit Diagnoses Not on filedocumented in this encounter Care Teams Freight Flagman Relationship Specialty Start Date End Date None, Provider PCP - General 10/02/15 documented as of this encounter
--- OUTSIDE RECORDS SUMMARY | 2022-08-07 15:15 | XMS_ITS | Encounter Summary ---
:1990 Author Organization [facility] Address [address] [place] [address] Care Team Providers Name Role Phone None, Provider Primary Care Provider Unavailable Encounter Details Date Type Department Care Team Description 06/10/2021 Lab Requisition [facility] Outr Resulting Lab, Pathology & Laboratory Provider [facility] [address] [place] [address] Social History Tobacco Use Types Packs/Day Years Used Date Smoking Tobacco: Never Assessed Sex Assigned at Date Recorded Not on file documented as of this encounter Plan of Treatment Not on filedocumented as of this encounter Procedures Procedure Name Priority Date/Time Associated Comments Diagnosis QUANTIFERON MITOGEN Today 06/09/2021 15:27 (PERFORMABLE) EDT QUANTIFERON TB2 Today 06/09/2021 15:27 (PERFORMABLE) EDT QUANTIFERON TB1 Today 06/09/2021 15:27 (PERFORMABLE) EDT QUANTIFERON NIL Today 06/09/2021 15:27 (PERFORMABLE) EDT QUANTIFERON Today 06/09/2021 15:27 Results for this INTERPRETATION EDT procedure are in (PERFORMABLE) the results section. QUANTIFERON TB GOLD Routine 06/09/2021 15:27 Resu lts for this PLUS EDT procedure are i n the results section. documented in this encounter Results QUANTIFERON INTERPRETATION (PERFORMABLE) (06/09/2021 15:27 EDT) [facility] Time Signature Quantiferon Negative Negative 06/11/2021 [facility] Interpretation 12:01 EDT [facility] Comment: No interferon-gamma response to M. tuberculosis antigens was detected. ??Infection with M. tuberculosis is unli janie. A single negative result does not exclude infection with M. tuberculosis. ??In patients at high risk for M. tuberculosis infection, a second test sh ould be considered. TB1 Ag minus Nil 0.07 IU/ml 06/11/2021 12:01 EDT [facility] TB2 Ag minus Nil 0.02 IU/mL 06/11/2021 12:01 EDT [facility] Specimen Anatomical Collection Method Collection Time Receive d Time (Source) Location / / Volume Laterality Blood VENOUS BLOOD / 06/09/2021 15:27 1 Unknown EDT 11:30 EDT Narrative [facility] - 06/11/2021 12:01 EDT Results were obtained with the [employer] QuantiFERON-TB Gold Plus CLIA. New platform in use 05/28/2021 Provider Outr Resulting Lab IMMUNOLOGY AND SEROLOGY OR DERABLES Performing Organization Address City/[facility] Phon e Number [facility] [address] [place] [address] SERVICES QUANTIFERON MITOGEN (PERFORMABLE) (06/09/2021 15:27 EDT) Specimen Anatomical Collection Method Collection Time Receive d Time (Source) Location / / Volume Laterality Blood VENOUS BLOOD / 06/09/2021 15:27 1 Unknown EDT 16:31 EDT Provider Outr Resulting Lab IMMUNOLOGY AND SEROLOGY OR DERABLES Performing Organization Address City/[facility]/ZIP Code Phon e Number [facility] [address] [place] [address] SERVICES QUANTIFERON TB2 (PERFORMABLE) (06/09/2021 15:27 EDT) Specimen Anatomical Collection Method Collection Time Receive d Time (Source) Location / / Volume Laterality Blood VENOUS BLOOD / 06/09/2021 15:27 1 Unknown EDT 16:31 EDT Provider Outr Resulting Lab IMMUNOLOGY AND SEROLOGY OR DERABLES Performing Organization Address City/[facility] Phon e Number [facility] [address] [place] [address] SERVICES QUANTIFERON TB1 (PERFORMABLE) (06/09/2021 15:27 EDT) Specimen Anatomical Collection Method Collection Time Receive d Time (Source) Location / / Volume Laterality Blood VENOUS BLOOD / 06/09/2021 15:27 1 Unknown EDT 16:31 EDT Provider Outr Resulting Lab IMMUNOLOGY AND SEROLOGY OR DERABLES Performing Organization Address City/State/[facility] Code Phon e Number [facility] [address] [place] [address] SERVICES QUANTIFERON NIL (PERFORMABLE) (06/09/2021 15:27 EDT) Specimen Anatomical Collection Method Collection Time Receive d Time (Source) Location / / Volume Laterality Blood VENOUS BLOOD / 06/09/2021 15:27 1 Unknown EDT 16:31 EDT Provider Outr Resulting Lab IMMUNOLOGY AND SEROLOGY OR DERABLES Performing Organization Address City/[facility] Code Phon e Number [facility] [address] [place] [address] SERVICES documented in this encounter Visit Diagnoses Not on filedocumented in this encounter Care Teams Composition Teacher Relationship Specialty Start Date End Date None, Provider PCP - General 10/02/15 documented as of this encounter
--- OUTSIDE RECORDS SUMMARY | 2022-08-07 15:15 | XMS_ITS | Encounter Summary ---
:1990 Author Organization [facility] Address [address] [place] [address] Care Team Providers Name Role Phone Md RAVI Palafox Primary Care Provider Unavailable Encounter Details Date Type Department Care Team Description 04/22/2012 Results Only [facility] Osman James, DO [phone] [facility] [place] [address] (Wo rk) Social History Tobacco Use Types Packs/Day Years Used Date Smoking Tobacco: Never Assessed Sex Assigned at Date Recorded Not on file documented as of this encounter Plan of Treatment Not on filedocumented as of this encounter Procedures Procedure Name Priority Date/Time Associated Diagnosis Comme nts SURGICAL PATHOLOGY Routine 04/22/2012 0:00 EDT Re sults for this procedure are i n the results section. documented in this encounter Results SURGICAL PATHOLOGY (04/22/2012 0:00 EDT) Component Value Ref Test Analysis Performed At [facility] Range Method Time Signature Pathology SURGICAL PATHOLOGY REPORT ALEXANDRA WYMAN Report: Reports generated via electronic interface contain cata miner data; GAURI CHAO however they are lacking the format of the original report. Caution should be taken when reading/interpreting unformatte d reports. Name: ? LESLEY HAYWARD ? Accession #: ? [id number] ? : ? 1990 (Age: 22) ??F ? Collect Date: ? 04/22/2012 ? Location: ? [facility] ? Receive Date: ? 04/22/2012 ? Provider: OSMAN JAMES DO Copy to: JORGE LUIS BROWN APRN ? Final Pathologic Diagnosis: ? Stomach, antrum, biopsy: 1. ?Mild, reactive gastropathy. 2. ? No Helicobacter pylori identified on H&E stain. Document reviewed and electronically signed by: RUCHI CARLOS MD Report ??Date: 04/26/2012 16:37 By the signature above, the attending physician certifies th at he/she has personally conducted a gross and/or microscopic examin ation of the described specimens and rendered or confirmed the above diagnosis. Specimen(s) Received: ? Gastric antrum bxs Clinical History: ? Persistent dyspepsia/persistent GERD Gross Description: ? Received in formalin labelled Lesley Cherry and gastric antrum biopsies are three pink-klein, irregular soft tis sues ranging from 0.2 x 0.2 x 0.1 cm to 0.5 x 0.3 x 0.1 cm, submitted in toto in a divorce360 e cassette. ??(Fabiana Silva)/[facility] End of Report Specimen (Source) Anatomical Collection Method Collection Time Re ceived Time Location / / Volume Laterality 04/22/2012 04/22/2012 22:1 4 EDT Osman James DO PATHOLOGY ORDERABLES Performing Organization Address City/State/ZIP Code Phon e Number [facility] [address] [place] [address] SERVICES [facility] [address] [place] [address] documented in this encounter Visit Diagnoses Not on filedocumented in this encounter Care Teams Checkman Relationship Specialty Start Date End Date Md Palafox MD PCP - General 06/02/10 04/25/12 documented as of this encounter
--- OUTSIDE RECORDS SUMMARY | 2022-08-07 15:15 | XMS_ITS | Encounter Summary ---
:1990 Author Organization [facility] Address [address] [place] [address] Care Team Providers Name Role Phone None, Provider Primary Care Provider Unavailable Encounter Details Date Type Department Care Team Description 09/03/2021 Lab Requisition [facility] Sandie Panda for other Pathology & M, DO general examination Laboratory Medicine - [address] [place] [phone] Social History Tobacco Use Types Packs/Day Years Used Date Smoking Tobacco: Never Assessed Sex Assigned at Date Recorded Not on file documented as of this encounter Plan of Treatment Not on filedocumented as of this encounter Procedures Procedure Name Priority Date/Time Associated Diagnosis Comme nts SURGICAL PATHOLOGY Today 09/02/2021 15:11 Encounter for othe r Results for this EST general examination procedur e are in the results section. documented in this encounter Results SURGICAL PATHOLOGY (09/02/2021 15:11 EST) Component Value Ref Test Analysis Performed At [facility] Range Method Time Signature Note to The following 09/08/2021 [facility] Patient pathology results 10:42 [email or web address] CENTER have been LABORATORY interpreted by SERVICES your pathologist and may be available to you before your health provider has had the opportunity to review them. Please allow time for your provider to receive these results and explore management options, if applicable. Final A. GALLBLADDER, CHOLECYSTECTOMY: 021 [facility] Diagnosis - Chronic cholecystitis. 10:42 EST [facility] Attestation There was 09/08/2021 [facility] Elect ronically significant 10:42 EST CENTER signed b y resident/fellow LABORATORY Addie Potter, involvement in SERVICES on 09/08/2021 the diagnostic at 10 42 evaluation of this case. By the signature below, the attending physician certifies that they have personally conducted a gross and/or microscopic examination of the described specimens and rendered or confirmed the above diagnosis. Clinical Biliary 09/08/2021 [facility] History dyskinesia 10:42 [facility] SERVICES Gross A. 09/08/2021 [facility] Description Received in formalin deangelo d with proper patient identification (initials O, L) and gallbladder is an intact gallbladder with an attached segment of cystic duct (6.0 x 2.4 x 2.1 cm). A cystic duct lymph node is not present. 10:42 EST CENTER The serosa is purple-morataya an d smooth. The mucosa is dark green, wrinkled and velvety and the wall is 0.1 cm in thickness. The cystic duct lumen is patent and measures 0.1 cm in diameter. The cystic duct LABORATORY margin is inked blue. The l umen is filled with dark green mucinous bile and is absent of gallstones. SERVICES Two employer relations representative sections and the en face cystic duct margin are submitted in A1. GALI AGUILERA([facility]) 09/03/2021 13:50 Resident/Jasson Mobley, 09/08/2021 [facility] [place] w: 10:42 [facility] SERVICES Performing Lab [facility] 09/08/2021 [facility] AL LAB 10:42 [facility] SERVICES Scanned Images 09/08/2021 [facility] 10:42 [facility] SERVICES Specimen Anatomical Location Collection Method Collection Time Received Time (Source) / Laterality / Volume Tissue ENTIRE GALLBLADDER 09/02/2021 15:11 09/03 8:37 / Unknown EST EST Sandie Panda DO PATHOLOGY ORDERABLES Performing Organization Address City/State/ZIP Code Phon e Number [facility] [address] [place] [address] SERVICES documented in this encounter Visit Diagnoses Diagnosis Encounter for other general examination documented in this encounter Care Teams Circuit Board Assembler Relationship Specialty Start Date End Date None, Provider PCP - General 10/02/15 documented as of this encounter
--- OUTSIDE RECORDS SUMMARY | 2022-08-07 15:15 | XMS_ITS | Encounter Summary ---
:1990 Author Organization [facility] Address [address] [place] [address] Care Team Providers Name Role Phone Dony Vu SHAVON Primary Care Provider [phone] Encounter Details Date Type Department Care Team Description 11/09/2014 Results Only [facility] Osman James, DO [phone] [facility] [place] [address] (Wo rk) Social History Tobacco Use Types Packs/Day Years Used Date Smoking Tobacco: Never Assessed Sex Assigned at Date Recorded Not on file documented as of this encounter Plan of Treatment Not on filedocumented as of this encounter Procedures Procedure Name Priority Date/Time Associated Diagnosis Comme [facility] SURGICAL PATHOLOGY Routine 11/09/2014 17:33 Resul ts for this EST procedure are i n the results section. documented in this encounter Results SURGICAL PATHOLOGY (11/09/2014 17:33 EST) Component Value Ref Test Analysis Performed At [facility] Method Time Signature Pathology SURGICAL PATHOLOGY REPORT [facility] Report: Reports generated via electronic interface contain origina l data; CENTER however they are lacking the format of the original report. LABORATORY Caution should be taken when reading/interpreting unformat dorina reports. SERVICES Name: ? LESLEY HAYWARD ? Accession #: ? [id number] ? : ? 1990 (Age: 24) ??F ? Collect Date: ? 11/09/2014 ? Location: ? [facility] ? Receive Date: ? 11/09/2014 ? Provider: OSMAN JAMES DO Copy to: CHACHA SWAIN MD ? Final Pathologic Diagnosis: STOMACH, ANTRUM, BIOPSY: - ??Antral mucosa with mild reactive gastropathy. - ??No intestinal metaplasia or dysplasia identified. - ??No evidence of Helicobacter pylori on H&E. Document reviewed and electronically signed by: CARA PATRICIA MD Report ??Date: 11/13/2014 09:12 By the signature above, the attending physician certifies th at he/she has personally conducted a gross and/or microscopic examin ation of the described specimens and rendered or confirmed the above diagnosis. Specimen(s) Received: Gastric antrum Clinical History: GERD Gross Description: ? Received in formalin labelled with proper patient identification (initials O, L) and gastric antrum a re three pink-klein tissues (0.3 x 0.2 x 0.2 cm, 0.3 x 0.2 x 0.2 cm, and 0.4 x 0.3 x 0.2 cm). Entirely submitted in 1. Dr. Duran 11/10/2014 09:43 AM End of Report Specimen Anatomical Collection Method Collection Time Receive d Time (Source) Location / / Volume Laterality 11/09/2014 17:33 11/09/2014 EST 17:33 EST Osman James DO PATHOLOGY ORDERABLES Performing Organization Address City/State/ZIP Code Phon e Number [facility] [address] [place] [address] SERVICES documented in this encounter Visit Diagnoses Not on filedocumented in this encounter Care Teams Custom Bookbinder Relationship Specialty Start Date End Date Dony Vu APRN PCP - General 04/26/12 11/11/14 [address] [place] [id number] documented as of this encounter
--- OUTSIDE RECORDS SUMMARY | 2022-08-07 15:15 | XMS_ITS | Encounter Summary ---
:1990 Author Organization [facility] Address [address] [place] [address] Care Team Providers Name Role Phone Sky Jensen MD Primary Care Provider Encounter Details Date Type Department Care Team Description 09/27/2015 Results Only [facility]- Neftali Haro MD [phone] [address] [place], [place] [address] (Wo rk) Social History Tobacco Use Types Packs/Day Years Used Date Smoking Tobacco: Never Assessed Sex Assigned at Date Recorded Not on file documented as of this encounter Plan of Treatment Not on filedocumented as of this encounter Procedures Procedure Name Priority Date/Time Associated Diagnosis Comme [facility] SURGICAL PATHOLOGY Routine 09/27/2015 21:43 Resul ts for this EST procedure are i n the results section. documented in this encounter Results SURGICAL PATHOLOGY (09/27/2015 21:43 EST) Component Value Ref Test Analysis Performed At [facility] Method Time Signature Pathology SURGICAL PATHOLOGY REPORT [facility] Report: Reports generated via electronic interface contain origina l data; CENTER however they are lacking the format of the original report. LABORATORY Caution should be taken when reading/interpreting unformat dorina reports. SERVICES Name: ? LESLEY HAYWARD ? Accession #: ? [id number] ? : ? 1990 (Age: 4 3) ??F ? Collect Date: ? 09/27/2015 ? Location: ? [facility] ? Receive Date: ? 09/30/2015 ? Provider: NEFTALI DESAI MD Copy to: ? Final Pathologic Diagnosis: FALLOPIAN TUBES, BILATERAL SALPINGECTOMY: - ??Status post prior ligation. - ??Paratubal cysts. Document reviewed and electronically signed by: PAT KAUR MD Report ??Date: 10/03/2015 15:01 By the signature above, the attending physician certifies th at he/she has personally conducted a gross and/or microscopic examin ation of the described specimens and rendered or confirmed the above diagnosis. Specimen(s) Received: Bilateral fallopian tubes Clinical History: Right lower quadrant pain; dyspareunia; clinical diagnosis code: R10.31, N94.1 Gross Description: ? Received in formalin labelled with proper patient identification (initials O, L) and bilateral fallopi an tubes are two unoriented tubular structures (5.8 cm in length and 0.8 cm in diameter, and 5.0 cm in length an d 1.0 cm in diameter). ??The serosal surfaces are purple and smooth. Yaron shie clips are present on the distal end of each fallop donald tube. Sectioning reveals a central pinpoint lumen with multiple smooth lined cysts (ranging in size from 0.1 cm to 0.7 cm in maximum dimension) filled with clear fluid. One fallopian tube is black inked for orientation purposes. Two electroplating sales representative cross sections and one longitudinally bisected fimb riated end of each fallopian tube are submitted in [address] Amador 10/01/2015 4:37 PM End of Report Specimen Anatomical Collection Method Collection Time Receive d Time (Source) Location / / Volume Laterality 09/27/2015 21:43 09/30/2015 EST 21:43 EST Neftali Desai MD PATHOLOGY ORDERABLES Performing Organization Address City/State/ZIP Code Phon e Number [facility] [address] [place] [address] SERVICES documented in this encounter Visit Diagnoses Not on filedocumented in this encounter Care Teams Floater Operator Relationship Specialty Start Date End Date Sky Jensen MD PCP - General 11/12/14 10/01/15 documented as of this encounter
--- OUTSIDE RECORDS SUMMARY | 2022-08-07 15:15 | XMS_ITS | Encounter Summary ---
:1990 Author Organization [facility] Address [address] [place] [address] Care Team Providers Name Role Phone None, Provider Primary Care Provider Unavailable Encounter Details Date Type Department Care Team Description 09/16/2020 Results Only [facility] Unknow n, Provider, Lab - [facility] [address] [place] [address] [place] [address] Social History Tobacco Use Types Packs/Day Years Used Date Smoking Tobacco: Never Assessed Sex Assigned at Date Recorded Not on file documented as of this encounter Plan of Treatment Not on filedocumented as of this encounter Procedures Procedure Name Priority Date/Time Associated Diagnosis Comme nts COVID-19 TESTING Routine 09/16/2020 6:25 EST Resu lts for this procedure are i n the results section. documented in this encounter Results COVID-19 TESTING (09/16/2020 6:25 EST) [facility] Method Time Signature Performing Lab AB 7500 09/17/2020 [facility] LAb 15:58 EST [facility] Comment: RESULT: Quantstud[employer] 7 [facility] Lab Please indicate the Triage Tier2 Test performed or referred by The [address] [address] COVID-19 rt-PCR Not Detected Negative 09/17/2020 15:58 EST [facility] LAB Comment: Negative results do not preclude 2019-nC oV infection and should not be used as the sole basis for treatment or other patient management decisions. Negative r esults must be combined with clinical observations, pat ient history, and epidemiological information. This test was developed and its performa nce characteristics determined by [facility]. It has not been olimpia ared or approved by the US Food and Drug Administration. FDA does not require this test to go through premarket FDA re view. This test is used for clinical purposes. It should no t be regarded as investigational or for research. This la loc is certified under the Clinical Laboratory Improvement Amendments (CLIA) as qualified to perfor m high complexity clinical laboratory testing. This test is based on the CDC COVID-19 E mergency Use Authorization (EUA) assay, with minor mo dification as defined by the FDA Performed on the [employer] 7 Flex. Specimen Anatomical Collection Method Collection Time Receive d Time (Source) Location / / Volume Laterality 09/16/2020 6:25 09/16/2020 EST 13:21 EST Provider Unknown MD MICROBIOLOGY - GENERAL ORDER SEBASTIAN Performing Organization Address City/State/ZIP Code Phon e Number [facility] [address] [place] [address] documented in this encounter Visit Diagnoses Not on filedocumented in this encounter Care Teams Combined Rail Operator Relationship Specialty Start Date End Date None, Provider PCP - General 10/02/15 documented as of this encounter
--- OUTSIDE RECORDS SUMMARY | 2022-08-07 15:15 | XMS_ITS | Encounter Summary ---
:1990 Author Organization [facility] Address [address] [place] [address] Care Team Providers Name Role Phone None, Provider Primary Care Provider Unavailable Encounter Details Date Type Department Care Team Description 09/09/2020 Results Only [facility] Unknow n, Provider, Lab - [facility] [address] [place] [address] [place] [address] Social History Tobacco Use Types Packs/Day Years Used Date Smoking Tobacco: Never Assessed Sex Assigned at Date Recorded Not on file documented as of this encounter Plan of Treatment Not on filedocumented as of this encounter Procedures Procedure Name Priority Date/Time Associated Diagnosis Comme nts COVID-19 TESTING Routine 09/09/2020 11:20 EST Res ults for this procedure are i n the results section. documented in this encounter Results COVID-19 TESTING (09/09/2020 11:20 EST) [facility] Method Time Signature Performing Lab AB 7500 09/11/2020 [facility] LAb 7:53 EST [facility] LAB Comment: RESULT: Quantstudio 7 [facility] Lab Please indicate the Triage Tier2 Test performed or referred by The [address] [address] COVID-19 rt-PCR Not Detected Negative 09/11/2020 7:53 EST [facility] LAB Comment: Negative results do not preclude 2019-nC oV infection and should not be used as the sole basis for treatment or other patient management decisions. Negative r esults must be combined with clinical observations, pat ient history, and epidemiological information. This test was developed and its performa nce characteristics determined by [facility]. It has not been olimpia ared or [...] defined by the FDA Performed on the [employer] 7 Flex. Specimen Anatomical Collection Method Collection Time Receive d Time (Source) Location / / Volume Laterality 09/09/2020 11:20 09/09/2020 EST 11:20 EST Provider Unknown MD MICROBIOLOGY - GENERAL ORDER SEBASTIAN Performing Organization Address City/State/ZIP Code Phon e Number [facility] [address] [place] [address] documented in this encounter Visit Diagnoses Not on filedocumented in this encounter Care Teams Thermometer Production Worker Relationship Specialty Start Date End Date None, Provider PCP - General 10/02/15 documented as of this encounter
--- OUTSIDE RECORDS SUMMARY | 2022-08-07 15:15 | XMS_ITS | Encounter Summary ---
:1990 Author Organization [facility] Address [address] [place] [address] Care Team Providers Name Role Phone Md RAVI Palafox Primary Care Provider Unavailable Encounter Details Date Type Department Care Team Description 08/28/2011 Results Only [facility] Makeda Desai MD Laboratory Services - [address] [place] [address] [place] [address] [phone] Social History Tobacco Use Types Packs/Day Years Used Date Smoking Tobacco: Never Assessed Sex Assigned at Date Recorded Not on file documented as of this encounter Plan of Treatment Not on filedocumented as of this encounter Procedures Procedure Name Priority Date/Time Associated Diagnosis Comme [facility] SURGICAL PATHOLOGY Routine 08/28/2011 0:00 EST Re sults for this procedure are i n the results section. documented in this encounter Results SURGICAL PATHOLOGY (08/28/2011 0:00 EST) Component Value Ref Test Analysis Performed At [facility] Method Time Signature Pathology SURGICAL PATHOLOGY REPORT ALEXANDRA WYMAN Report: Reports generated via electronic interface contain cata miner data; GAURI CHAO however they are lacking the format of the original report. Caution should be taken when reading/interpreting unformatte d reports. Name: ? LESLEY HAYWARD ? Accession #: ? [id number] ? : ? 1990 (Age: 21) ??F ? Collect Date: ? 08/28/2011 ? Location: ? [facility] ? Receive Date: ? 08/28/2011 ? Provider: NEFTALI DESAI MD Copy to: ? Final Pathologic Diagnosis: ? Uterine contents, removal: ? 1. ??Immature chorion ic villi, decidua and gestational-type endometrium, consistent with products of ? conception. ? 2. ??Rare strips of benign endocervical tissue. Document reviewed and electronically signed by: SUNITHA MCCALLUM MD Report ??Date: 08/31/2011 16:30 By the signature above, the attending physician certifies th at he/she has personally conducted a gross and/or microscopic examin ation of the described specimens and rendered or confirmed the above diagnosis. Specimen(s) Received: ? -related tissue Clinical History: ? Missed ; clinical diagnosis code: 634.11 Gross Description: ? Received in formalin labelled Gabriella Cherry and -related tissue is a 5.0 x 4.0 x 3.5 cm aggregate of klein -brown soft tissue fragments. No parts are identifie d. ??The tissue is predominantly brown-klein with some areas which are light klein an d spongy. ??Room Inspector sections are submitted as (A1) through (A3). ??(Dr. Birch)/[facility] End of Report Specimen (Source) Anatomical Collection Method Collection Time Re ceived Time Location / / Volume Laterality 08/28/2011 08/28/2011 15:5 0 EST Neftali Desai MD PATHOLOGY ORDERABLES Performing Organization Address City/State/ZIP Code Phon e Number [facility] [address] [place] [address] SERVICES [facility] [address] [place] [address] documented in this encounter Visit Diagnoses Not on filedocumented in this encounter Care Teams Cardiac Rn Relationship Specialty Start Date End Date Md Palafox MD PCP - General 06/02/10 04/25/12 documented as of this encounter
--- OUTSIDE RECORDS SUMMARY | 2022-08-07 15:15 | XMS_ITS | Encounter Summary ---
:1990 Author Organization [facility] Address [address] [place] [address] Care Team Providers Name Role Phone None, Provider Primary Care Provider Unavailable Encounter Details Date Type Department Care Team Description 09/04/2020 Results Only [facility] Unknow n, Provider, Lab - [facility] [address] [place] [address] [place] [address] Social History Tobacco Use Types Packs/Day Years Used Date Smoking Tobacco: Never Assessed Sex Assigned at Date Recorded Not on file documented as of this encounter Plan of Treatment Not on filedocumented as of this encounter Procedures Procedure Name Priority Date/Time Associated Diagnosis Comme nts COVID-19 TESTING Routine 09/04/2020 7:15 EST Resu lts for this procedure are i n the results section. documented in this encounter Results COVID-19 TESTING (09/04/2020 7:15 EST) [facility] Method Time Signature Performing Lab AB 7500 09/05/2020 [facility] LAb 19:12 EST [facility] LAB Comment: RESULT: Quantstudio 7 [facility] Lab Please indicate the Triage TierT2 Test performed or referred by The [address] [address] COVID-19 rt-PCR Not Detected Negative 09/05/2020 19:12 EST [facility] LAB Comment: Negative results do not preclude 2019-nC oV infection and should not be used as the sole basis for treatment or other patient management decisions. Negative r esults must be combined with clinical observations, pat ient history, and epidemiological information. This test was developed and its performa nce characteristics determined by [facility]. It has not been olimpia ared [...] defined by the FDA Performed on the [employer] 7 Flex. Specimen Anatomical Collection Method Collection Time Receive d Time (Source) Location / / Volume Laterality 09/04/2020 7:15 09/04/2020 EST 11:57 EST Provider Unknown MD MICROBIOLOGY - GENERAL ORDER SEBASTIAN Performing Organization Address City/State/ZIP Code Phon e Number [facility] [address] [place] [address] documented in this encounter Visit Diagnoses Not on filedocumented in this encounter Care Teams Tile Conduit Layer Relationship Specialty Start Date End Date None, Provider PCP - General 10/02/15 documented as of this encounter
--- OUTSIDE RECORDS SUMMARY | 2022-08-07 15:15 | XMS_ITS | Encounter Summary ---
:1990 Author Organization [facility] Address [address] [place] [address] Care Team Providers Name Role Phone None, Provider Primary Care Provider Unavailable Encounter Details Date Type Department Care Team Description 08/11/2020 Results Only [facility] Unknow n, Provider, Lab - [facility] [address] [place] [address] [place] [address] Social History Tobacco Use Types Packs/Day Years Used Date Smoking Tobacco: Never Assessed Sex Assigned at Date Recorded Not on file documented as of this encounter Plan of Treatment Not on filedocumented as of this encounter Procedures Procedure Name Priority Date/Time Associated Diagnosis Comme nts COVID-19 Routine 08/11/2020 15:23 EST Results for this procedure are i n the results section . documented in this encounter Results COVID-19 (08/11/2020 15:23 EST) [facility] Method Time Signature COVID-19 - Not Detected 08/12/2020 [facility] 21:11 EST [facility] Comment: TESTING PERFORMED AT [facility] DEPARTMENT; Analyte ? Result 2019-nCoV ? Not detected Negative results do not preclude 2019-nC oV infection and should not be used as the sole basis for treatment or other patient management decisions. ??Negative results must be combined with clinical observations, pat ient history and epidemlogical information. Specimen Anatomical Collection Method Collection Time Receive d Time (Source) Location / / Volume Laterality 08/11/2020 15:23 08/11/2020 EST 19:41 EST Provider Unknown MICROBIOLOGY - GENERAL ORDER SEBASTIAN Performing Organization Address City/State/ZIP Code Phon e Number [facility] [address] [place] [address] documented in this encounter Visit Diagnoses Not on filedocumented in this encounter Care Teams Electric Meter Technician Relationship Specialty Start Date End Date None, Provider PCP - General 10/02/15 documented as of this encounter
--- OUTSIDE RECORDS SUMMARY | 2022-08-07 15:15 | XMS_ITS | Encounter Summary ---
:1990 Author Organization [facility] Address [address] [place] [address] Care Team Providers Name Role Phone Md RAVI Palafox Primary Care Provider Unavailable Encounter Details Date Type Department Care Team Description 11/10/2010 Results Only [facility] Joel Silvestre MD Laboratory Services - [address] [facility] [place] [address] [place] [address] [place] [address] [phone] Social History Tobacco Use Types Packs/Day Years Used Date Smoking Tobacco: Never Assessed Sex Assigned at Date Recorded Not on file documented as of this encounter Plan of Treatment Not on filedocumented as of this encounter Procedures Procedure Name Priority Date/Time Associated Diagnosis Comme [facility] SURGICAL PATHOLOGY Routine 11/10/2010 0:00 EST Re sults for this procedure are i n the results section. documented in this encounter Results SURGICAL PATHOLOGY (11/10/2010 0:00 EST) Component Value Ref Test Analysis Performed At [facility] Method Time Signature Pathology SURGICAL PATHOLOGY REPORT ? ESTELA HER Report: Reports generated via electr Informaat interface contain original data; ? GAURI CHAO however they are lacking the format of the original report. ? Caution should be taken when reading/interpreting unformatted reports. ? Name: ? HAYWARD, LIBERTY ? Accession #: ? [id number] ? : ? 1990 (Age: 20) ??F ? Collec t Date: ? 11/10/2010 ? Location: ? [facility] ? Re ceive Date: ? 11/10/2010 ? Provider: JOEL BENY MD ? Copy to: HÉCTOR EID MD ? Final Pathologic Diagnosis: ? A. ?Tonsil, lef t, tonsillectomy: ? 1. ?Tonsillar t issue with reactive lymphoid follicular hyperplasia. ? B. ??Tonsil, right, a nd adenoids, tonsillectomy and adenoidectomy: ? 1. ?? Tonsillary and adenoidal tissue with reactive lymphoid follicular ? hyperplasia. ? C. ??Uvula, mass, resectio n: ? 1. ?? Squamous papill marry. ? Comment: ? This case has been re viewed at the intradepartmental consultation ? conference. (Dr. Gomez)/mpl ? Document reviewed and electr onically signed by: ? Mallorie Gomez MD ? Report ??Date: 11/12/2010 17 :51 ? By the signature above, the attending physician certifies that he/she has ? personally conducted a gross and/or microscopic examination of the described ? specimens and rendered or co nfirmed the above diagnosis. ? Specimen(s) Received: ? A. ?Lt tonsil ? B. ? Rt tonsil and adeno ids ? C. ? Uvula mass ? Clinical History: ? 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 Gross Description: ? Received in formalin labelled Lori Hayward and left tonsil is a 4.4 x 2.2 x 2.2 cm nodular tissue grossly consistent with a markedly enlarged palatine tonsil. ??The specimen is pa rtially surfaced by a pink-klein, smooth and cryptic ?? mucosa, and sectioning revea ls a pink-klein, homogeneous cut surface without ? masses or discrete lesions. ??A single product sales representative section is submitted in ? (A). ? Received in formalin deangelo d Lori Hayward and right tonsil and adenoids ?? is a 4.5 x 2.5 x 1.6 cm nodu lar tissue grossly consistent with a markedly ? enlarged palatine tonsil. ?? The specimen is partially surfaced by a pink-klein, ? smooth and cryptic mucosa, a nd sectioning reveals a pink-klein, homogeneous cut ?? surface without masses or di screte lesions. ??Also received in the specimen ? container is a 1.0 x 1.0 x 0 .3 cm aggregate of ragged pink-klein irregular tissue fragments consistent with ad enoid tissue and without grossly discernible ? abnormalities. ??A represent ative section of tonsil and a product sales representative section of probable adenoid tissue f ragments are submitted in (B). ? Received in formalin deangelo d Lori Hayward and uvula papilloma mass is a ?? 1.8 x 0.5 x 0.2 cm morataya-whit e, papillary, pedunculated, polypoid lesion, the ? stalk of which is composed o f pink-klein, smooth mucosa. ??The margin is inked ? black and the specimen is marquez bmitted intact in (C). ??(Fabiana Silva)/reanna ? End of Report ? Specimen (Source) Anatomical Collection Method Collection Time Re ceived Time Location / / Volume Laterality 11/10/2010 11/10/2010 18:0 7 EST Joel Silvestre MD PATHOLOGY ORDERABLES Performing Organization Address City/State/[facility] Phon e Number [facility] [address] [place] [address] SERVICES [facility] [address] [place] [address] documented in this encounter Visit Diagnoses Not on filedocumented in this encounter Care Teams Piccoloist Relationship Specialty Start Date End Date Md Palafox MD PCP - General 06/02/10 04/25/12 documented as of this encounter
--- OUTSIDE RECORDS SUMMARY | 2022-08-07 15:15 | XMS_ITS | Encounter Summary ---
:1990 Author Organization [facility] Address [address] [place] [address] Care Team Providers Name Role Phone Md RAVI Palafox Primary Care Provider Unavailable Encounter Details Date Type Department Care Team Description 05/30/2010 Results Only [facility] Armin Parnell, WOOD SKI MAKER Laboratory Services - [address] [facility] [address] [address] [place] [address] [phone] Social History Tobacco Use Types Packs/Day Years Used Date Smoking Tobacco: Never Assessed Sex Assigned at Date Recorded Not on file documented as of this encounter Plan of Treatment Not on filedocumented as of this encounter Procedures Procedure Name Priority Date/Time Associated Diagnosis Comme nts CYTOPATHOLOGY Routine 05/30/2010 0:00 EDT Results for this procedure are i n the results section . documented in this encounter Results CYTOPATHOLOGY (05/30/2010 0:00 EDT) Component Value Ref Test Analysis Performed At [facility] Method Time Signature Pathology CYTOPATHOLOGY REPORT ? [facility] Report: ? [facility] Reports generated via electr onic interface contain original data; ? however they are lacking the format of the original report. ? Caution should be taken when reading/interpreting unformatted reports. ? Name: ? LESLEY HAYWARD N ? Accession #: ? [id number] ? : ? 1990 (Age: 20) ??F ?Collect Date: ? 05/30/2010 ? Location: ? [facility] ? Receive Date: ? 06/02/2010 ? Provider: ?KIM HAYG OOD WOOD SKI MAKER ? Copy to: ? Specimen/Source: ? Pap Test, Cervix/Endocervix, ThinPrep Imaging System ? with manual evaluation ? Last Menstrual Period: ? Hormonal/Contraceptive Statu s: ? Depo-Provera ? SPECIMEN ADEQUACY ? Satisfactory for Eval uation ? - transformation zone compon ent present ? - scant squamous epithelial component ? GENERAL CATEGORIZATION ? Negative for Intraepi thelial Lesion or Malignancy ? INTERPRETATION ? Shift in justin presen t suggestive of bacterial vaginosis. ? Document reviewed and electr onically signed by: ? Sky Stumler, CT( CP) ? Report Date: ??09/16/ 2010 09:49 ? End of Report ? Specimen (Source) Anatomical Location Collection Method / Collectio n Time Received Time / Laterality Volume 05/30/2010 06/02/2010 Kim Parnell WOOD SKI MAKER PATHOLOGY ORDERABLES Performing Organization Address City/State/ZIP Code Phon e Number [facility] [address] [place] [address] SERVICES [facility] [address] [place] [address] documented in this encounter Visit Diagnoses Not on filedocumented in this encounter Care Teams Dispatcher Refinery Relationship Specialty Start Date End Date Md Palafox MD PCP - General 06/02/10 04/25/12 documented as of this encounter
--- OUTSIDE RECORDS SUMMARY | 2022-08-07 15:15 | XMS_ITS | Encounter Summary ---
:[address] [facility] Address [address] [place] [address] Care Team Providers Name Role Phone None, Provider Primary Care Provider Unavailable Encounter Details Date Type Department Care Team Description 08/28/2020 Results Only [facility] Unknow n, Provider, Lab - [facility] [address] [place] [address] [place] [address] Social History Tobacco Use Types Packs/Day Years Used Date Smoking Tobacco: Never Assessed Sex Assigned at Date Recorded Not on file documented as of this encounter Plan of Treatment Not on filedocumented as of this encounter Procedures Procedure Name Priority Date/Time Associated Diagnosis Comme nts COVID-19 TESTING Routine 08/28/2020 13:37 EST Res ults for this procedure are i n the results section. documented in this encounter Results COVID-19 TESTING (08/28/2020 13:37 EST) [facility] Method Time Signature Performing Lab AB 7500 08/30/2020 [facility] LAb 15:38 EST [facility] LAB Comment: Please indicate the Triage Tier2 Test performed or referred by The [address] [address] COVID-19 rt-PCR Not Detected Negative 08/30/2020 15:38 EST [facility] LAB Comment: Negative results do not preclude 2019-nC oV infection and should not be used as the sole basis for treatment or other patient management decisions. Negative r esults must be combined with clinical observations, pat ient history, and epidemiological information. This test was developed and its performa nce characteristics determined by [facility]. It has not been olimpia ared or [...] defined by the FDA Performed on the Medisas 7 Flex. Specimen Anatomical Collection Method Collection Time Receive d Time (Source) Location / / Volume Laterality 08/28/2020 13:37 08/28/2020 EST 19:25 EST Provider Unknown MD MICROBIOLOGY - GENERAL ORDER SEBASTIAN Performing Organization Address City/State/ZIP Code Phon e Number [facility] [address] [place] [address] documented in this encounter Visit Diagnoses Not on filedocumented in this encounter Care Teams Access Tech Relationship Specialty Start Date End Date None, Provider PCP - General 10/02/15 documented as of this encounter
--- OUTSIDE RECORDS SUMMARY | 2022-08-07 15:15 | XMS_ITS | Encounter Summary ---
:[address] [facility] Address [address] [place] [address] Care Team Providers Name Role Phone None, Provider Primary Care Provider Unavailable Encounter Details Date Type Department Care Team Description 09/16/2020 Lab Requisition [facility] Center Outr Resulting Lab, Pathology & Laboratory Provider [facility] [address] [place] [address] Social History Tobacco Use Types Packs/Day Years Used Date Smoking Tobacco: Never Assessed Sex Assigned at Date Recorded Not on file documented as of this encounter Plan of Treatment Not on filedocumented as of this encounter Procedures Procedure Name Priority Date/Time Associated Diagnosis Comme nts COVID-19 TEST [facility] Today 09/16/2020 6:25 EST LAB PCR COVID-19 TESTING Routine 09/16/2020 6:25 EST Resu lts for this procedure are i n the results section. documented in this encounter Results COVID-19 TEST [facility] LAB PCR (09/16/2020 6:25 EST) Specimen Anatomical Location Collection Method Collection Time Received Time (Source) / Laterality / Volume Swab ENTIRE NASOPHARYNX 09/16/2020 6:25 2019 / Unknown EST 16:51 EST Provider Outr Resulting Lab MICROBIOLOGY - GENERAL ORD ERABLES Performing Organization Address City/State/ZIP Code Phon e Number [facility] [address] [place] [address] SERVICES COVID-19 TESTING (09/16/2020 6:25 EST) Analysis Performed At [facility] Time Signature COVID-19 Negative Negative 09/17/2020 [facility] MEDICAL rt-PCR Result 15:21 EST CENTER LABORATORY SERVICES Comment: Negative results do not preclude 2019-OR oV infection and should not be used as the sole basis for treatment or other patient management decisions. Negative results must be combined with clinical observa tions, patient history, and epidemiologi josephine information. This test was developed and its performa nce characteristics determined by [facility]. It has not been cleared or approved [...] defined by the FDA Performed on the Perpetuo 7 Flex. Performing Lab Quantstudio 7 [facility] 09/17/2020 15:[address] [facility] Lab LABORATORY SERVICES Specimen Anatomical Collection Method Collection Time Receive d Time (Source) Location / / Volume Laterality Swab 09/16/2020 6:25 09/16/2020 EST 16:51 EST Provider Outr Resulting Lab MICROBIOLOGY - GENERAL ORD ERABLES Performing Organization Address City/State/ZIP Code Phon e Number [facility] [address] [place] [address] SERVICES documented in this encounter Visit Diagnoses Not on filedocumented in this encounter Care Teams Recreational Sports Director Relationship Specialty Start Date End Date None, Provider PCP - General 10/02/15 documented as of this encounter
--- OUTSIDE RECORDS SUMMARY | 2022-08-07 15:15 | XMS_ITS | Encounter Summary ---
:1990 Author Organization [facility] Address [address] [place] [address] Care Team Providers Name Role Phone None, Provider Primary Care Provider Unavailable Encounter Details Date Type Department Care Team Description 10/04/2021 Lab Requisition [facility] Center Outr Resulting Lab, Pathology & Laboratory Provider [facility] [address] [place] [address] Social History Tobacco Use Types Packs/Day Years Used Date Smoking Tobacco: Never Assessed Sex Assigned at Date Recorded Not on file documented as of this encounter Plan of Treatment Not on filedocumented as of this encounter Procedures Procedure Name Priority Date/Time Associated Diagnosis Comme nts COVID-19 TEST [facility] Today 10/03/2021 9:10 EST LAB PCR COVID-19 TESTING Routine 10/03/2021 9:10 EST Resu lts for this procedure are i n the results section. documented in this encounter Results COVID-19 TEST [facility] LAB PCR (10/03/2021 9:10 EST) Specimen Anatomical Collection Method Collection Time Receive d Time (Source) Location / / Volume Laterality Swab 10/03/2021 9:10 10/04/2021 EST 21:49 EST Provider Outr Resulting Lab MICROBIOLOGY - GENERAL ORD ERABLES Performing Organization Address City/State/ZIP Code Phon e Number [facility]ENTER LABORAT[facility] [address] [place] [address] SERVICES COVID-19 TESTING (10/03/2021 9:10 EST) Analysis Performed At Patho logist Time Signature COVID-19 Negative Negative 10/05/2021 [facility] rt-PCR Result 15:34 EST CENTER LABORATORY SERVICES Comment: This test has [...] and its performa nce characteristics determined by [facility]. It has not been cleared or [...] testing. This test is based on the [facility] COVID-19 E mergency Use Authorization (EUA) assay, with minor modification as defined by the FDA Performed on the Snipio 7 Pro RT-PCR System. Performing Lab [facility] Lab 10/05/2021 15:34 EST [facility] SERVICES Specimen Anatomical Collection Method Collection Time Receive d Time (Source) Location / / Volume Laterality Swab 10/03/2021 9:10 10/04/2021 EST 21:49 EST Provider Outr Resulting Lab MICROBIOLOGY - GENERAL ORD ERABLES Performing Organization Address City/State/ZIP Code Phon e Number [facility] [address] [place] [address] SERVICES documented in this encounter Visit Diagnoses Not on filedocumented in this encounter Care Teams Advertising Sales Representative Relationship Specialty Start Date End Date None, Provider PCP - General 10/02/15 documented as of this encounter
--- OUTSIDE RECORDS SUMMARY | 2022-08-07 15:15 | XMS_ITS | Encounter Summary ---
:1990 Author Organization [facility] Address [address] [place] [address] Care Team Providers Name Role Phone Dony Vu APRN Primary Care Provider [phone] Encounter Details Date Type Department Care Team Description 11/09/2014 Hospital Encounter [facility]- Ruma Vanegas, Provider, [facility] [address] [facility] [phone] [place] [address] (Work) [phone] Social History Tobacco Use Types Packs/Day Years Used Date Smoking Tobacco: Never Assessed Sex Assigned at Date Recorded Not on file documented as of this encounter Discharge Disposition Disposition Code Departure Means Destination Home or Self Snf documented in this encounter Plan of Treatment Not on filedocumented as of this encounter Visit Diagnoses Not on filedocumented in this encounter Care Teams Building Operator Relationship Specialty Start Date End Date Dony Vu APRN PCP - General 04/26/12 11/11/14 [address] [facility] [address] [place] [address] documented as of this encounter
--- OUTSIDE RECORDS SUMMARY | 2022-08-07 15:15 | XMS_ITS | Encounter Summary ---
:1990 Author Organization [facility] Address [address] [place] [address] Care Team Providers Name Role Phone None, Provider Primary Care Provider Unavailable Encounter Details Date Type Department Care Team Description 06/17/2021 Lab Requisition [facility] Center Outr Resulting Lab, Pathology & Laboratory Provider [facility] [address] [place] [address] Social History Tobacco Use Types Packs/Day Years Used Date Smoking Tobacco: Never Assessed Sex Assigned at Date Recorded Not on file documented as of this encounter Plan of Treatment Not on filedocumented as of this encounter Procedures Procedure Name Priority Date/Time Associated Diagnosis Comme nts COVID-19 TEST [facility] Today 06/16/2021 9:00 EDT LAB PCR COVID-19 TESTING Routine 06/16/2021 9:00 EDT Resu lts for this procedure are i n the results section. documented in this encounter Results COVID-19 TEST [facility] LAB PCR (06/16/2021 9:00 EDT) Specimen Anatomical Location Collection Method Collection Time Received Time (Source) / Laterality / Volume Swab ENTIRE NASOPHARYNX 06/16/2021 9:00 2020 / Unknown EDT 16:53 EDT Provider Outr Resulting Lab MICROBIOLOGY - GENERAL ORD ERABLES Performing Organization Address City/State/ZIP Code Phon e Number [facility] [address] [place] [address] SERVICES COVID-19 TESTING (06/16/2021 9:00 EDT) Analysis Performed At [facility] Time Signature COVID-19 Negative Negative 06/18/2021 [facility] MEDICAL rt-PCR Result 15:40 EDT CENTER LABORATORY SERVICES Comment: This test [...] and its performa nce characteristics determined by [facility]. It has not been cleared or [...] defined by the FDA Performed on the YouDocs Beautyo 7 Flex RT-PCR System. Performing Lab [facility] Lab 06/18/2021 15:40 EDT [facility] LABORATORY SERVICES Specimen Anatomical Collection Method Collection Time Receive d Time (Source) Location / / Volume Laterality Swab 06/16/2021 9:00 06/17/2021 EDT 16:53 EDT Provider Outr Resulting Lab MICROBIOLOGY - GENERAL ORD ERABLES Performing Organization Address City/State/ZIP Code Phon e Number [facility] [address] [place] [address] SERVICES documented in this encounter Visit Diagnoses Not on filedocumented in this encounter Care Teams Director Hardware Relationship Specialty Start Date End Date None, Provider PCP - General 10/02/15 documented as of this encounter
--- OUTSIDE RECORDS SUMMARY | 2022-08-07 15:15 | XMS_ITS | Encounter Summary ---
:1990 Author Organization [facility] Address [address] [place] [address] Care Team Providers Name Role Phone None, Provider Primary Care Provider Unavailable Encounter Details Date Type Department Care Team Description 09/04/2020 Lab Requisition [facility] Center Outr Resulting Lab, Pathology & Laboratory Provider [facility] [address] [place] [address] Social History Tobacco Use Types Packs/Day Years Used Date Smoking Tobacco: Never Assessed Sex Assigned at Date Recorded Not on file documented as of this encounter Plan of Treatment Not on filedocumented as of this encounter Procedures Procedure Name Priority Date/Time Associated Diagnosis Comme nts COVID-19 TEST [facility] Today 09/04/2020 7:15 EST LAB PCR COVID-19 TESTING Routine 09/04/2020 7:15 EST Resu lts for this procedure are i n the results section. documented in this encounter Results COVID-19 TEST [facility] (09/04/2020 7:15 EST) Specimen Anatomical Location Collection Method Collection Time Received Time (Source) / Laterality / Volume Swab ENTIRE NASOPHARYNX 09/04/2020 7:15 2019 / Unknown EST 16:56 EST Provider Outr Resulting Lab MICROBIOLOGY - GENERAL ORD ERABLES Performing Organization Address City/State/ZIP Code Phon e Number [facility] CENTER LABORATORY [address] [place] [address] SERVICES COVID-19 TESTING (09/04/2020 7:15 EST) Analysis Performed At [facility] Time Signature COVID-19 Negative Negative 09/05/2020 [facility] MEDICAL rt-PCR Result 18:08 EST CENTER LABORATORY SERVICES Comment: Negative results do not preclude 2019-PR oV infection and should not be used as the sole basis for treatment or other patient management decisions. Negative results must be combined with clinical observa tions, patient history, and epidemiologi josephine information. This test was developed and its performa nce characteristics determined by [facility]. It has not been cleared [...] defined by the FDA Performed on the CheckBonuso 7 Flex. Performing Lab Quantstudio 7 [facility] 09/05/2020 18:0 8 EST [facility] Lab LABORATORY SERVICES Specimen Anatomical Collection Method Collection Time Receive d Time (Source) Location / / Volume Laterality Swab 09/04/2020 7:15 09/04/2020 EST 16:56 EST Provider Outr Resulting Lab MICROBIOLOGY - GENERAL ORD ERABLES Performing Organization Address City/State/ZIP Code Phon e Number [facility] [address] [place] [address] SERVICES documented in this encounter Visit Diagnoses Not on filedocumented in this encounter Care Teams Malted Milk Supervisor Relationship Specialty Start Date End Date None, Provider PCP - General 10/02/15 documented as of this encounter
--- OUTSIDE RECORDS SUMMARY | 2022-08-07 15:15 | XMS_ITS | Encounter Summary ---
:1990 Author Organization [facility] Address [address] [place] [address] Care Team Providers Name Role Phone None, Provider Primary Care Provider Unavailable Encounter Details Date Type Department Care Team Description 08/07/2020 Results Only [facility] Unknow n, Provider, Lab [facility] [address] [place] [address] [place] [address] Social History Tobacco Use Types Packs/Day Years Used Date Smoking Tobacco: Never Assessed Sex Assigned at Date Recorded Not on file documented as of this encounter Plan of Treatment Not on filedocumented as of this encounter Procedures Procedure Name Priority Date/Time Associated Diagnosis Comme nts COVID-19 Routine 08/07/2020 13:30 EST Results for this procedure are i n the results section . documented in this encounter Results COVID-19 (08/07/2020 13:30 EST) [facility] Method Time Signature COVID-19 - Not Detected 08/09/2020 [facility] 11:10 EST [facility] Comment: TESTING PERFORMED AT [facility] DEPARTMENT; Analyte ? Result 2019-nCoV ? Not detected Negative results do not preclude 2019-nC oV infection and should not be used as the sole basis for treatment or other patient management decisions. ??Negative results must be combined with clinical observations, pat ient history and epidemlogical information. Specimen Anatomical Collection Method Collection Time Receive d Time (Source) Location / / Volume Laterality 08/07/2020 13:30 08/07/2020 EST 16:20 EST Provider Unknown MICROBIOLOGY - GENERAL ORDER SEBASTIAN Performing Organization Address City/State/ZIP Code Phon e Number [facility] [address] [place] [address] documented in this encounter Visit Diagnoses Not on filedocumented in this encounter Care Teams Musician Instrumental Relationship Specialty Start Date End Date None, Provider PCP - General 10/02/15 documented as of this encounter
--- OUTSIDE RECORDS SUMMARY | 2022-08-07 15:15 | XMS_ITS | Clinical Summary ---
:1990 Author Organization [facility] Address [address] [place] [address] Care Team Providers Name Role Phone None, Provider Primary Care Provider Unavailable Social History Tobacco Use Types Packs/Day Years Used Date Smoking Tobacco: Never Assessed Sex Assigned at Date Recorded Not on file Plan of Treatment Health Maintenance Due Date Last Done Comments Hepatitis C Screen 1990 COVID-19 Vaccine (#1) 1990 Insurance Payer Benefit Plan Subscriber ID Effective Phone Address Typ e / Group Dates MEDICAID ACO MEDICAID ACO [id number] 2021-Pres [phone] [address] Medicaid [place] [address] [facility] [id number] Care Teams Caterer'S Aide Relationship Specialty Start Date End Date None, Provider PCP - General 10/02/15
--- OUTSIDE RECORDS SUMMARY | 2022-08-07 15:15 | XMS_ITS | Encounter Summary ---
:1990 Author Organization [facility] Address [address] [place] [address] Care Team Providers Name Role Phone None, Provider Primary Care Provider Unavailable Encounter Details Date Type Department Care Team Description 08/22/2020 Lab Requisition [facility] Outr Resulting Lab, Pathology & Laboratory Provider [facility] [address] [place] [address] Social History Tobacco Use Types Packs/Day Years Used Date Smoking Tobacco: Never Assessed Sex Assigned at Date Recorded Not on file documented as of this encounter Plan of Treatment Not on filedocumented as of this encounter Procedures Procedure Name Priority Date/Time Associated Comments Diagnosis DO NOT ORDER Today 08/22/2020 7:29 EST Results for this STANDALONE - BROAD procedure are in COVID TEST the results section. COVID-19 TESTING Routine 08/22/2020 7:29 EST Resu lts for this procedure are i n the results section. documented in this encounter Results DO NOT ORDER STANDALONE - [facility] COVID TEST (08/22/2020 7:29 EST) [facility] Time Signature COVID-19 NEGATIVE Negative 08/24/2020 [facility] rt-PCR Result 9:50 EST [facility] Comment: 2019-novel Coronavirus (2019-nCoV) [...] / Laterality / Volume Swab ENTIRE NASOPHARYNX 08/22/2020 7:29 2019 / Unknown EST 22:22 EST Provider Outr Resulting Lab MICROBIOLOGY - GENERAL ORD ERABLES Performing Organization Address City/State/ZIP Code Phon e Number [facility] [place] COVID-19 TESTING (08/22/2020 7:29 EST) Analysis Performed At [facility] Time Signature COVID-19 NEGATIVE Negative 08/24/2020 [facility] rt-PCR Result 9:50 EST [facility] Comment: 2019-novel Coronavirus (2019-nCoV) [...] Administration's Emergency Use Authorization. Performing Lab [facility] 08/24/2020 9:50 EST [facility] LABORAT[facility] SERVICES Specimen Anatomical Collection Method Collection Time Receive d Time (Source) Location / / Volume Laterality Swab 08/22/2020 7:29 08/22/2020 EST 22:22 EST Provider Outr Resulting Lab MICROBIOLOGY - GENERAL ORD ERABLES Performing Organization Address City/State/ZIP Code Phon e Number [facility] [address] [place] [address] SERVICES [facility] [place] documented in this encounter Visit Diagnoses Not on filedocumented in this encounter Care Teams Steward/Stewardess Night Relationship Specialty Start Date End Date None, Provider PCP - General 10/02/15 documented as of this encounter
--- OUTSIDE RECORDS SUMMARY | 2022-08-07 15:15 | XMS_ITS | Encounter Summary ---
:1990 Author Organization [facility] Address [address] [place] [address] Care Team Providers Name Role Phone Sky Jensen MD Primary Care Provider Encounter Details Date Type Department Care Team Description 09/27/2015 Hospital Encounter [facility] - S Unknown, Pro Deion rivera MD [address] [facility] [phone] [place] [address] (Work) [phone] Social History Tobacco Use Types Packs/Day Years Used Date Smoking Tobacco: Never Assessed Sex Assigned at Date Recorded Not on file documented as of this encounter Discharge Disposition Disposition Code Departure Means Destination Home or Self Long Term documented in this encounter Plan of Treatment Not on filedocumented as of this encounter Visit Diagnoses Not on filedocumented in this encounter Care Teams Fund Accountant Relationship Specialty Start Date End Date Sky Jensen MD PCP - General 11/12/14 10/01/15 documented as of this encounter
--- OUTSIDE RECORDS SUMMARY | 2022-08-07 15:15 | XMS_ITS | Encounter Summary ---
:[address] [facility] Address [address] [place] [id number] Care Team Providers Name Role Phone None, Provider Primary Care Provider Unavailable Encounter Details Date Type Department Care Team Description 08/22/2020 Results Only [facility] Unknow n, Provider, Lab - [facility] [address] [place] [address] [place] [address] Social History Tobacco Use Types Packs/Day Years Used Date Smoking Tobacco: Never Assessed Sex Assigned at Date Recorded Not on file documented as of this encounter Plan of Treatment Not on filedocumented as of this encounter Procedures Procedure Name Priority Date/Time Associated Diagnosis Comme nts COVID-19 TESTING Routine 08/22/2020 7:29 EST Resu lts for this procedure are i n the results section. documented in this encounter Results COVID-19 TESTING (08/22/2020 7:29 EST) [facility] Method Time Signature Performing Lab [place] 08/24/2020 [facility] 10:40 EST [facility] Comment: Please indicate the Triage TierT2 Test performed or referred by The [address] [address] COVID-19 rt-PCR Not Detected Negative 08/24/2020 10:40 EST [facility] Comment: 2019-novel Coronavirus (2019-nCoV) not d etected by the qRT-PCR assay. Consider testing for othe r respiratory viruses or re-collecting for 2019-nCoV t esting. Note: Optimum timing for peak viral levels dur ing infections caused by 2019-nCoV have not been determ ined. Collection of multiple specimens from the same patient may be necessary to detect the virus. Limitations Positive results are indicative of activ e infection with SARS-CoV-2 but do not rule out bacterial infection or co-infection with other viruses. The age nt detected may not be the definite cause of disease. In add ition, detection of viral RNA may not indicate the presence of infectious virus or that SARS-CoV-2 is the causative agen t for clinical symptoms. Negative results do not preclude SARS-Co V-2 infection and should not be used as the sole basis for patient management decisions. Negative results must be comb ined with clinical observations, patient history, and epide miological information. False negative results may also occur if amplification inhibitors are present in the specimen or if inadequate numbers of organisms are pres ent in the specimen. Optimum specimen types and corina ing for peak viral levels during infections caused by SARS- CoV-2 have not been fully determined. Collection of multiple specimens (types and time points) from the same patient m ay be necessary to detect the virus. The test was validated for use with uppe r respiratory specimens obtained via nasopharyngeal or oropharyngeal swabs in VTM, UTM, M4, M5, M6, saline, a nd MTM media. The performance of this test has not been es tablished for other specimens. Specimens collected using [facility] FDA recommended Specimen Collection Materials listed in the FDA COVID-19 [employer] communication (M 2019) are processed with the caveat that they were not all validated for use with this test and the result mu st be interpreted in this context. Furthermore, a false ne gative results may occur if a specimen is improperly collec dorina, transported or handled. If the virus mutates in the RT-PCR targe t region, SARS-CoV-2 may not be detected or may be detected less predictably. Inhibitors or other types of interferenc e may produce a false negative result. An interference s tudy evaluating the effect of common cold medications was no t performed. This test is not FDA-cleared but its per formance characteristics were established by our CLIA-certified, CAP-accredited, high complexity laborato ry in accordance with CLIA regulations, [employer] (CAP) guidelines (Dec 07, 2019), and FDA guidance (Nov 18, 2019). This test is only for use under the Food and Drug Administration's Emergency Use Authoriza tion. Specimen Anatomical Collection Method Collection Time Receive d Time (Source) Location / / Volume Laterality 08/22/2020 7:29 08/22/2020 7 :29 EST EST Provider Unknown MD MICROBIOLOGY - GENERAL ORDER SEBASTIAN Performing Organization Address City/State/ZIP Code Phon e Number [facility] [address] [place] [address] documented in this encounter Visit Diagnoses Not on filedocumented in this encounter Care Teams Tax Processor Relationship Specialty Start Date End Date None, Provider PCP - General 10/02/15 documented as of this encounter
--- OUTSIDE RECORDS SUMMARY | 2022-08-07 15:16 | XMS_ITS | Encounter Summary ---
:1990 Author Organization [facility] [place] [address] Care Team Providers Name Role Phone Sky Jensen MD Primary Care Provider Reason for Visit Auth/Cert Specialty Diagnoses / Procedures Referred By Contact Refer red To Contact Procedures observation Referral ID Status Reason Start Date Expiration Date Visits Requ ested Visits Authorized [id number] 1 1 Encounter Details Date Type Department Care Team Description 10/10/2015 Hospital Encounter Non-Invasive Thang Isidro Syncope , unspecified Cardiology Lab Malini Bolton MD syncope type [facility] [place] [id number] [phone] Social History Tobacco Use Types Packs/Day Years Used Date Smoking Tobacco: Every Day Cigarettes 1 5 Smokeless Tobacco: Never Alcohol Use Standard Drinks/Week Comments Yes 3 (1 standard drink = 0.6 oz pure alcoho l) Sex Assigned at Date Recorded Not on file documented as of this encounter Last Filed Vital Signs Vital Sign Reading Time Taken Comments Blood Pressure - - Pulse - - Temperature - - Respiratory Rate - - Oxygen Saturation - - Inhaled Oxygen Concentration - - Weight 72 kg (158 lb 11.7 oz) 10/10/2015 8:04 AM EST Height - - Body Mass Index 23.44 12/18/2014 1:12 PM EDT documented in this encounter Medications at Time of Discharge Medication Sig Dispensed Refills Start Date End Date PROAIR HFA 90 mcg/actuation as needed. 0 09/12/20 14 HFA Aerosol Inhaler triamcinolone (KENALOG) 0.1 0 09/12/20 14 % Ointment fludrocortisone (FLORINEF) 0.1 mg every 0 12/11/2 015 11/04/2015 0.1 mg Tablet morning. midodrine (PROAMATINE) 2.5 Take 1 tablet by 90 tablet 0 11/04/2015 mg Tablet mouth 3 times daily. documented as of this encounter Plan of Treatment Pending Results Name Type Priority Associated Diagnoses Date/Ti me EP Tilt Table Cardiac Services Routine Syncope, unspecified 9:19 AM Test syncope type EST documented as of this encounter Procedures Procedure Name Priority Date/Time Associated Diagnosis Comme nts TILT TABLE TEST Routine 10/10/2015 9:19 AM EST Syncope, unspec ified syncope type Procedure Note - Nato Price MD - 10/10/2015 9:19 AM ESTThis note is in progress. Formatting of this note is d ifferent from the original. Head-Up Tilt Test Indication: Syncope Operators: Jonatan Price MD ; Navneet Garcia MD. Procedure: The patient was b rought to the Electrophysiology Lab in the fasting state and continuous electrocardiographic monitoring was instituted. An intravenous line was placed for fluid and medication administration. The planned protocol is noted below. ? ? Stage I: Eighty degree head up tilt was initiated and maintained for 10 minutes. ? ? Stage II: While maintaining 80 degree head up tilt, dobutamine infusion was initiated at 2.5 mcg/kg/min and continued for 10 minutes. ? ? Stage III: While maintaining 80 degree head upright tilt, the dobutamine infusion was increased to 5 mcg/kg/min and continued for 10 minutes. ? ? Stage IV: While maintaining 80 degree head upright tilt, the dobutamine infusion was increased to 10 mcg/kg/min and continued for 10 minutes. At the completion of the til t protocol or with syncope, the table was returned to the supine position and the heart rate and blood pressure returned to baseline. The IV was discontinued and the patient was discharged in good condition. RESULTS: Baseline: HR: 62 bpm Rhythm: Sinus BP Right arm: 117/68 Left arm: 119/73 Bruits: Right: Absent Left: Absent Carotid Massage: BP HR Right 120 to 100 60 to 64 Left 120 to 110 60 to 53 Tilt: Tilt Time Medications BP HR Comments Stage I Initial 121/70 90 2 minutes 136/85 90 4 minutes 119/63 79 6 minutes 118/85 77 8 minutes 128/78 81 10 minutes 123/88 92 Stage II 2 minutes Dobutamine 2.5 mcg /kg/min 123/88 92 4 minutes Dobutamine 2.5 mcg /kg/min 125/70 85 6 minutes Dobutamine 2.5 mcg /kg/min 131/75 108 8 minutes Dobutamine 2.5 mcg /kg/min 134/88 115 10 minutes Dobutamine 2.5 mc g/kg/min 130/54 103 Stage III 2 minutes Dobutamine 5 mcg/k g/min 126/74 99 4 minutes Dobutamine 5 mcg/k g/min 116/68 97 6 minutes Dobutamine 5 mcg/k g/min 129/75 124 8 minutes Dobutamine 5 mcg/k g/min 129/98 134 10 minutes Dobutamine 5 mcg/ kg/min 127/78 133 Stage IV 2 minutes Dobutamine 10 mcg/ kg/min 129/72 137 4 minutes Dobutamine 10 mcg/ kg/min 121/102 147 6 minutes Dobutamine 10 mcg/ kg/min 116/66 141 8 minutes Dobutamine 10 mcg/ kg/min 117/83 146 9 minutes, 10 seconds Dobuta mine 10 mcg/kg/min 78/46 66 Sudden drop in HR over 30 seconds, followed by hypotension. Symptoms of nausea, then flushing and chest thudding, then vomitting and tinnitus. No lightheadedness or syncope. Not typical for her syncope episodes (with the exception of tinnitus) Supine 90/36 76 Continued vo mitting Discharge Observation: BP: 127/88 HR: 86 Rhythm: S inus IMPRESSION: ? ? Vasodepressor response to tilt table provocation ? ? No syncope induced during test, but typical pro-dromal symptoms triggered with drop in BP. On the basis of the above, t he patient was advised re: standard orthostatic precautions, positional awareness, adequate hydration, adequate salt in diet, physical counterpressure maneuvers. This report was composed by Dr. Price. documented in this encounter Visit Diagnoses Diagnosis Syncope, unspecified syncope type documented in this encounter Administered Medications Inactive Administered Medications - up to 3 most recent administrations Medication Order MAR Action Action Date Dose Rate Site DOBUTamine 2,000 mcg/mL Rate/Dose 10/10/2015 9:00 10 mcg/kg/min 21.6 mL/hr (standard ADULT & Jessica Change AM EST greater than 20kg) 5-50 mcg/kg/min ? 72 kg (10.8-108 mL/hr), Intravenous, CONTINUOUS, Starting on Enriqueta 10/10/15 at 0800, Until Enriqueta 10/10/15 at 0918, For use in the electrophysiology lab (EP lab) only with direct provider supervision and verbal order., EP (Intra-Procedure) Rate/Dose Change 10/10/2015 8:49 AM EST 5 mcg/kg/min 10.8 mL/hr New Bag 10/10/2015 8:39 AM EST 2.5 mcg/kg/min 5.4 mL/hr documented in this encounter Care Teams Professor Of Sport Management Relationship Specialty Start Date End Date Sky Jensen MD PCP - General 12/03/14 07/22/[address] [place] [id number] documented as of this encounter
--- OUTSIDE RECORDS SUMMARY | 2022-08-07 15:16 | XMS_ITS | Encounter Summary ---
:1990 Author Organization [facility] Address [facility] [place] [address] Care Team Providers Name Role Phone Sky Jensen MD Primary Care Provider Encounter Details Date Type Department Care Team Description 11/04/2015 Telephone Cardiology at [facility] Jonatan Price MD [facility] [place] [phone] CARDIOLOGY DEPT [phone] [place], [place] [address] (Wo rk) Social History Tobacco Use Types Packs/Day Years Used Date Smoking Tobacco: Every Day Cigarettes 1 5 Smokeless Tobacco: Never Alcohol Use Standard Drinks/Week Comments Yes 3 (1 standard drink = 0.6 oz pure alcoho l) Sex Assigned at Date Recorded Not on file documented as of this encounter Miscellaneous Notes Telephone Encounter - Jonatan Price - 11/04/2015 11:25 AM EST Called by patient today, after I left a message last week regarding testing results, after recent syncope 10/22/2015. I reviewed the results with her today. Ziopatch (with recordings during typical syncope) excluded a cardiac arrhythmia. Exercise stress test did not show signs of ischemia or an inducible arrhythmia. Therefore, the diagnosis is neurocardiogenic syncope, after excluding other causes, and given tilt table result. The patient is rather miserable on her current regimen, florinef 0.1 mg daily and midodrine 2.5 mg bid. She gets pounding headaches (regular and severe) with florinef. She more recently has had severe nausea with midodrine, even with this lowest dose. She would like to come off these medications. She is now willing to wear compression stockings, and has done so recently. She tried additional salt intake for a short period of time, and then stopped. I encouraged her to persevere with these measures, as her treatment is more likely to succeed if it is multimodal. We reviewed options of anticholinergic medications (such as hyocyamine AKA Levbid, or propantheline AKA probanthine). We reviewed side effects, including GI issues, issues, hypohydrosis. She has opted to take Levbid 0.75 mg bid, since it is milder than probanthine. She will stop florinef and midodrine. We reviewed pacemaker implant for vasovagal syncope. I reviewed that it is a treatment, not a cure. It is only mildly effective, except in patients with severe bradycardia during vasovagal spells (she did not have these, during tilt table test or Ziopatch). I reviewed the long-term risks of pacemaker implant. I will see her in clinic, sometime this spring, to see how she is tolerating Levbid. Recommendations: ?? Continue compression stockings ?? Continue increased salt intake ?? Stop florinef, stop midodrine ?? Start Levbid 0.75 mg bid Jonatan Price MD Cardiac Electrophysiology Fellow Physician documented in this encounter Plan of Treatment Not on filedocumented as of this encounter Visit Diagnoses Not on filedocumented in this encounter Care Teams Impact Retail Service Merchandiser Relationship Specialty Start Date End Date Sky Jensen MD PCP - General 12/03/14 07/22/[address] [place] [id number] documented as of this encounter
--- OUTSIDE RECORDS SUMMARY | 2022-08-07 15:16 | XMS_ITS | Encounter Summary ---
:1990 Author Organization [facility] [place] [address] Care Team Providers Name Role Phone Chacha Jensen MD Primary Care Provider Encounter Details Date Type Department Care Team Description 05/23/2015 Office Visit Cardiology at [facility] Wisam Isidro S, Syncope, unspecified [place] [address] CARDIOLOGY DEPT. [place], [place] [address] Social History Tobacco Use Types Packs/Day Years Used Date Smoking Tobacco: Every Day Cigarettes 1 5 Smokeless Tobacco: Never Alcohol Use Standard Drinks/Week Comments Yes 3 (1 standard drink = 0.6 oz pure alcoho l) Sex Assigned at Date Recorded Not on file documented as of this encounter Last Filed Vital Signs Vital Sign Reading Time Taken Comments Blood Pressure 112/71 05/23/2015 1:54 PM EDT Pulse 73 05/23/2015 1:54 PM EDT Temperature - - Respiratory Rate - - Oxygen Saturation 99% 05/23/2015 1:54 PM EDT Inhaled Oxygen Concentration - - Weight 68.5 kg (151 lb) 05/23/2015 1:54 PM EDT Height - - Body Mass Index 22.3 12/18/2014 1:12 PM EDT documented in this encounter Patient Instructions Patient InstructionsJonatan Price - 05/23/2015 3:59 PM EDT 1) No medication changes are prescribed. We would advise you to continue avoiding spironolactone, asyou are doing. 2) Hydrate well. [employer] should be at least eight glasses of 8oz each. 3) Eat extra salt. Do not eat any low salt foods. Add salt to your regular foods, to taste. 4) Follow up sooner if you have recurrent passing out/lightheaded spells. documented in this encounter Progress Notes Darenyariel Jonatan - 05/23/2015 10:13 PM EDT Images from the original note were not included. Cardiac Electrophysiology Outpatient Consultation Referring: Chacha Jensen MD [address] [place] [address] PCP: CHACHA JENSEN MD (General) History of Present Illness: This 25-year-old female, with past medical history of recurrent syncope since 2013, ADHD, exercise-induced asthma, hiatal hernia with likely Glenn fundoplication, adrenal hyperandrogenism, hirsutism, presents for evaluation of recurrent syncope. She is referred by her primary care physician, Dr. Jensen. Patient reports 3 recent episodes of syncope. They are as follows: 1) Summer 2013. After squatting down for a period of time, the patient got up quickly. She had a prodrome of lightheadedness and ringing of the ears for a few seconds. No symptoms of racing heart rate.She then passed out, approximately for 1 minute. She was caught by a witness, but did bang her head mildly, and suffered loss of consciousness. No nausea or vomiting after event. She was seen by her PCP the following day. This sounds like classic neurocardiogenic syncope. 2) Winter 2013. After standing and walking around for 20 minutes. She did have a prodrome of lightheadedness and ringing in the ears for a few seconds. Again, no racing heart rate. She passed out. She was witnessed partially responsive, and repeatedly trying to get up and passing out again. She was noted to have shaking movements during this spell. She did not have tongue biting, or incontinence during this spell. It lasted a total of 15 minutes. This is possible neurocardiogenic syncope (with recurrence due to repeated attempts to get up), but not classic. 3) Recently. After a hot shower, she felt lightheaded and ear-ringing for a few seconds. She felt lightheaded and almost passed out. She lay down on the floor for 5-10 minutes, and the sensation passed. This is likely neurocardiogenic syncope, given the circumstances. For all these episodes, the patient reports being well hydrated. Specifically, she drinks at least 8glasses of water and additional fluids. She is not liberal with salt (she dislikes the taste). She was supposed to start taking spironolactone 50 mg twice a day for hirsutism and adrenal hyperandrogenism, but never started it, on the advice of her PCP. The patient also had an episode of syncope in 8th grade. She recalls few details of this. It happened during intense aerobic exercise during gym class (suicide running drills), and may have been due todehydration. She does report prior workup. She has had EKGs. She apparently had a Holter monitor at [facility], normal per her report. She apparently had an EEG at [facility], normal per her report. She has not previously had an echocardiogram or stress test. She eats 4000 kcal per day. She is highly active, but participates in no organized exercises as an adult. She used to play basketball in high school. She can easily walk 2-3 flights of stairs without limitation from symptoms (such as chest pain/dyspnea/lightheadedness). She occasionally does get wheezing with exercise, from exercise-induced asthma, which she prevents with an inhaler. Review of Symptoms: Gen: no fevers, no chills, (+) lost 35 pounds with physical therapy, earlier this year ENT: no oral bleeding, no epistaxis CV: no chest pain, no angina, no orthopnea, no PND Pulm: no SOB, no cough, (+) wheezing with exercise due to mild exercise-induced asthma Abd: no nausea, no vomitting, no diarrhea, no hematochezia/melena Ext: no swelling, no pain Neuro: no headaches, no numbness, no tingling Skin: no rashes Psych: no confusion, no depression, no anxiety Heme: no easy bleeding, no new lumps : no hematuria, no dysuria, no menorrhagia or metrorrhagia Endocrine: no polydipsia/polyuria, no heat/cold intolerance Patient Active Problem List Diagnosis ??? Neurocardiogenic syncope ??? Hyperandrogenism ??? Pelvic pain syndrome Outpatient Prescriptions Marked as Taking for the 05/23/15 encounter (Office Visit) with Wisam Isidro MD Medication Sig Dispense Refill ??? PROAIR HFA 90 mcg/actuation HFA Aerosol Inhaler as needed. 0 ??? triamcinolone (KENALOG) 0.1 % Ointment 0 ??? dextroamphetamine-amphetamine (ADDERALL) 10 mg tablet Take 10 mg by mouth daily. Past Medical History Diagnosis Date ??? Mild exercise-induced asthma ??? History of repair of hiatal hernia ??? Hyperandrogenism ??? H/O female hirsutism ??? ADHD (attention deficit hyperactivity disorder) Past Surgical History Procedure Laterality Date ??? Upper gi endoscopy, exam 08/01/2012 UPPER GI ENDOSCOPY performed by JOSE DANIEL MURO at [facility] ??? Gastric fundoplication ??? Tubal ligation ??? Iliotibial band surgery ??? Appendectomy ??? Tonsillectomy and adenoidectomy Allergies: Allergies Allergen Reactions ??? Ibuprofen Other (See Comments) Nose bleeds ??? Lidocaine Itching ??? 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 She is also going to night classesfor child psychology. She smokes one pack per day, for the last 5 years. She also uses E cigarettes.She drinks beer on rare occasions (up to 3 beers at a time). She denies a history of cocaine, amphetamine, or injected drug use. Family History: Father is alive at 48, without major medical problems. Mother is alive at age 45, with low blood pressure. One brother and one half sister are alive and well. The half-sister has palpitations, and epilepsy. There is no history of myocardial infarction/CAD, stroke, DM, hypertension in first-degree relatives. Multiple family members have history of syncope. 2 cousins drowned as teenagers, but both these ducts were attributed to alcohol use. Multiple family members have had syncope (half-sister, maternal aunt, maternal grandmother). Her maternal grandmother was diagnosed with CAD and received PCI withstenting, approximately age 60. Physical Exam: BP 112/71 mmHg Pulse 73 Wt 68.493 kg (151 lb) SpO2 99% Orthostatic vitals: BP (mm Hg) HR (bpm) Supine 111/60 74 Sitting 112/71 78 Standing 117/78 84 General: In no acute distress, nondiaphoretic, nontachypneic Head: normocephalic, atraumatic ENT: clear oropharynx, moist mucous membranes, midline trachea, supple neck. No carotid bruits CV: JVP ~6 cm H2O and not distended, S1S2 regularly regular, S2 demonstrates normal inspiratory splitting, no murmurs/rubs/gallops, no RV heave, PMI nondisplaced Lungs: Clear to auscultation bilaterally, no wheezes/rales/rhonchi, Abdomen: soft, NT/ND, no hepatosplenomegaly Ext: no clubbing, cyanosis or edema. radial pulses 2+ pedal pulses 2+. Skin: no rashes, multiple tattoos Back: no spinal TTP Diagnostics: EKG today, tracing reviewed: Normal sinus rhythm, 64 bpm. AV conduction normal normal (WA 132 ms, QRS 70 ms). No evidence of long QT or short QT interval, QTc 385 ms by Bazett formula. No Brugada pattern. Normal QRS axis. No signs of ischemia or infarction. No signs of chamber hypertrophy. No evidenceof manifest conduction down an accessory pathway (AKA Skmzs-Itfyqfgbp-Frqfs syndrome). Echocardiogram, performed today, imaging reviewed: 1. The left ventricular chamber size is normal. Left ventricular wall thickness is normal. There is normal global left ventricular systolic function. The quantitative left ventricular ejection fractionby biplane Be's method is 63%. There are no left ventricular segmental wall motion abnormalities. Doppler assessment is consistent with normal left sided filling pressure. 2. Right ventricular chamber size, wall thickness, and systolic function are within normal limits. The estimated pulmonary artery systolic pressure is 20 mmHg (estimated right atrial pressure is 3 mmHg). 3. There is no significant valvular disease. 4. The left main coronary artery is visualized and is normal in origin. The right coronary artery isvisualized and is normal in origin. 5. See remainder of report for additional findings. No prior echo for comparison. Assessment/Plan: Lori Hayward is a 25 y.o. female who presents for evaluation of recurrent syncope. Past medical history includes exercise-induced asthma, adrenal hyperandrogenism, hirsutism, hiatal hernia. Most, but not all of her episodes, are consistent with neurocardiogenic syncope. There is no obvioustrigger, other than positional changes. We will try to obtain results of her Holter and EEG, to avoid repeat testing. EKG today is normal. Cardiovascular examination today was normal, and an echocardiogram was performed to exclude occult structural heart disease, given her recurrent events. There is no racing heart rate or palpitations to suggest a tachyarrhythmia. Bradycardia arrhythmia is extremelyunlikely in a young patient with a normal EKG. Orthostatic vitals today were normal, ruling out significant dehydration. Since structural heart disease, and arrhythmias have been effectively ruled out, neurocardiogenic syncope is extremely likely to be the diagnosis. We do not recommend tilt table testing, given the relatively poor sensitivity and specificity of the test, and given our certainty of the diagnosis. Instead, we recommend empiric treatment. We counseled the patient on hydration (minimum of 8 glassesof 8 ounces, per day). We counseled the patient on increasing salt intake (avoiding low sodium foods, and adding salt to taste). The counseled the patient on slow position changes. We counseled the patient on lying down and using the recovery position, for presyncopal episodes. We recommend avoiding use of spironolactone for hirsutism, given risk of dehydration. I discussed her case with one of the attending endocrinologists. This is the lowest available dose for hirsutism, so they would recommend stopping the medication, and pursuing other treatments. If she has recurrent events with nonpharmacologic treatment, we would next recommend fludrocortisone. Other medications such as Midodrine remain possibilities. If she fails pharmacotherapy for neurocardiogenic syncope and has recurrent events, we would also consider an implantable loop recorder (ILR).An ILR has the ability to record heart rhythm for up to 3 years, and capture reported events. Incidentally, we counseled the patient on smoking cessation. We described the risk of premature cardiovascular events. We indicated that vaping with E cigarettes likely also carries risk. Patient is not ready to quit. The patient will follow-up again in 6-12 months, with exact timing interval driven by recurrent symptoms. I saw this patient for cardiac electrophysiology attending, Dr. Isidro. This note incorporates his assessment and plan. Recommendations: Empiric treatment of neurocardiogenic syncope -Aggressive hydration -Additional salt intake -Cautious position changes, and recovery position for presyncope -recommend discontinuing spironolactone; patient will need follow up with endocrinology, if she wants alternative treatment -If recurrent events remain consistent with neurocardiogenic syncope, consider treatment with fludrocortisone Jonatan Price MD Cardiac Electrophysiology Fellow Physician Pager [phone] Daytime Addendum I have personally interviewed and examined the patient; reviewed the data, discussed with Dr Price Ms. Hayward presents with multiple, but infrequent episodes of pre and buddy syncope - that appear to be potentially vagally mediated. She has a good exercise capacity; and apparently had a holter monitor in the past that was reportedly normal, and an EEG that was apparently normal (we need to obtain copies of these) Her exam is benign - she is lean We discussed the likely etiologies to her syncope - and that the most likely cause is vagally mediated. We will perform an echo today to evaluate LV function and for valvular heart disease Advice re: hydration provided, adding salt to food, physical precautions etc. For continuing symptoms, fludrocortisone would be helpful (e.g. 0.05 mg twice daily) If, despite the above, there are continuing symptoms then tilt table or ILR would be helpful Plan as above WISAM ISIDRO MD documented in this encounter Plan of Treatment Not on filedocumented as of this encounter Procedures Procedure Name Priority Date/Time Associated Diagnosis Comme nts EKG 12-LEAD Routine 05/23/2015 2:10 PM Syncope, unspecified R esults for this EDT procedure are i n the results section . documented in this encounter Results Echocardiogram Transthoracic(Leb) (05/23/2015 4:16 PM EDT) P athologist Signature EF 63 HEARTLAB SYSTEM Anatomical Region Laterality Modality Other Specimen (Source) Anatomical Location Collection Method / Collectio n Time Received Time / Laterality Volume 05/23/2015 Narrative 05/23/2015 4:36 PM EDT Procedure: ?Transthoracic Echocardiogram Patient: ?HAYWARD LIBERTY N ? (Age): 1990(25y) Med Rec#: ? [id number] ?Sex: ?F ? Site Loc: ? DH ?Ht / Wt: ??175.3(cm)/68(kg Pt. Loc: ?Echo Lab ?BSA: ?1.83 Study Date: ?? 05/23/2015 ?Pt. Type: Outpatient Tape: ? Referring: Wisam Isidro Reading: Jasson Pascal ([id number]) Cutter Hot Knife: Ashlie Valdez Diagnosis: CPT Codes: *Echo Full (31401) *Spectral Doppler (60181) *Color Doppler (58022) Indication: ?? Syncope Rhythm: ? Sinus BP: ? 112/71 SUMMARY: 1. The left ventricular chamber size is normal. Left ventricular wall thickness is normal. There is normal brett bal left ventricular systolic function. The quantitative left ventricu lar ejection fraction by biplane Be's method is 63%. There are no le ft ventricular segmental wall motion abnormalities. Doppler assessment is consistent with normal left sided filling pressure. 2. Right ventricular chamber size, wall thickness, and systolic function are within normal limits. The estimated pulmonary artery systolic pressure is 20 mmHg (estimated right atr ial pressure is 3 mmHg). 3. There is no significant valvular dise ase. 4. The left main coronary artery is visu alized and is normal in origin. The right coronary artery is visualized and is normal in origin. 5. See remainder of report for additiona l findings. No prior echo for comparison. FINDINGS: ? Study Quality ?Adequate Left Ventricle ?The left ventricular chamber size is normal. ?Left ventricular wall thickness is normal. ?There is no evidence of LVOT obstr uction. ?There is normal global left ventri cular systolic function. ?The quantitative left ventricular ejection fraction by biplane Be's method is 63%. ?There are no left ventricular segm ental wall motion abnormalities. ?Doppler assessment is consistent w ith normal left sided filling pressure. Left Atrium ?The left atrium is normal in size. 24 ml/m2 by volume index. Right Ventricle ?Right ventricular chamber size, wa ll thickness, and systolic function are within normal limits. ?The estimated pulmonary artery sys tolic pressure is 20 mmHg. ?The estimated right atrial pressur e is 3 mmHg. Right Atrium ?The right atrium appears normal. Aortic Valve ?The aortic valve is trileaflet. Th e leaflets are thin with normal excursion. There is no aortic stenosis o r regurgitation present. Mitral Valve ?The mitral valve appears normal in structure and function. ?There is trace mitral regurgitatio n present. Tricuspid Valve ?The tricuspid valve appears normal in structure and function. ?There is trace tricuspid regurgita tion present. Pulmonic Valve ?The pulmonic valve appears normal in structure and function. ?There is trace pulmonic regurgitat ion present. Pericardium ?The pericardium appears normal and there is no evidence of a pericardial effusion. Aorta ?The aortic root is normal in size. ?The ascending aorta is normal in s ize. ?The left main coronary artery is v isualized and originates normally from the aorta. ?The right coronary artery is visua lized and originates normally from the aorta. Pulmonary Artery ?The main pulmonary artery appears normal. Venous ?The inferior vena cava appears nor mal in size. ?There is a greater than 50% respir atory change in the inferior vena cava dimension. Misc ?See remainder of report for additi onal findings. ?Two-dimensional echo, spectral Dop pler and color Doppler performed. Chambers 2D ?Value ?Units (Range) ? IVSd (2D) ? 0.7 ?cm ? LVPWd (2D) ?0.8 ?cm ? IVS:LVPW ratio (2D) 0.8 ?ratio ? LVIDd (2D) ?4.2 ?cm ? LVIDs (2D) ?2.9 ?cm ? LVIDd (2D) index ?2.3 ?cm/m2 ? LVIDs (2D) index ?1.6 ?cm/m2 ? LV FS (2D) ?32 ? % ? EF Teichholz (2D) ?? 60 ? % ? Ao root diameter (2D2.8 ?cm (2.1 - 3.6) ? Ascending Ao ?2.9 ?cm (2 - 3.5) ? Volumes/Mass ?Value ?Units (Range) ? LA Area 4 CH ?16 ? cm2 (<21) ? LA ESV SP 4CH (A/L) 41.2 ? ml ? LA ESV SP 2CH (A/L) 39.7 ? ml ? LA ESV BP (A/L) ? 44.5 ? ml ? LA ESV BP (A/L) inde24.3 ? ml/m2 ? RA AREA 4CH ? 14 ? cm2 ? LA ESV SP 4CH (MOD) 35.5 ? ml ? LA ESV SP 2CH (MOD) 37.1 ? ml ? LV EDV SP 4CH (MOD) 90.4 ? ml ? LV ESV SP 4CH (MOD) 31.6 ? ml ? EF SP 4CH (MOD) ? 65 ? % ? LV EDV SP 2CH (MOD) 101.2 ? ml ? LV ESV SP 2CH (MOD) 37.4 ? ml ? EF SP 2CH (MOD) ? 63 ? % ? LV EDV BP ? 96.6 ? ml ? LV ESV BP ? 36.1 ? ml ? BP EF (MOD) ? 63 ? % ? LV mass (2D) ?95.3 ? g ? LV mass (2D) index ??52.1 ? g/m2 ? Diastolic/Systolic Function ?Value ?Units (Range) ? MV E-wave Vmax ?1.1 ?m/sec ? MV deceleration [id number] ?msec ? MV A-wave Vmax ?0.4 ?m/sec ? MV E:A ratio ?2.5 ?ratio ? LV E:e' septal ratio0.2 ?ratio ? Tricuspid Valve ?Value ?Units (Range) ? TR Vmax ? 2.1 ?m/sec ? TR peak gradient ?17.1 ? mmHg ? RAP ? 3 ?mmHg ? RVSP ?20 ? mmHg ? Pulmonic Valve/Qp:Qs ?Value ?Units (Range) ? WA end-diastolic Vma0.7 ?m/sec ? PA end-diastolic pre5 ?mmHg ? Measurement Trending Name ? 05/23/2015 ? LV EDV BP ?9 6.6411 LVIDd (2D) ? 4. [id number] LV ESV BP ?3 6.1077 LVIDs (2D) ? 2. 2118131 LA ESV BP (A/L) ?44.5 252 Wall Motion: Segment Name ?Rest ? Base-Anteroseptal ?? Normal ? Base-Anterior ? Normal ? Base-Anterolateral ??Normal ? Base-Posterolateral Normal ? Base-Inferior ? Normal ? Base-Inferoseptal ?? Normal ? Mid-Anteroseptal ?Normal ? Mid-Anterior ?Normal ? Mid-Anterolateral ?? Normal ? Mid-Posterolateral ??Normal ? Mid-Inferior ?Normal ? Mid-Inferoseptal ?Normal ? Henderson-Septal ? Normal ? Henderson-Anterior ? Normal ? Henderson-Lateral ?Normal ? Henderson-Inferior ? Normal ? Henderson-Tip ?Normal ? This report has been electronically sign ed by: _ Jasson Pascal MD ? 05/23/2015 16:35:52 Images reviewed and interpretation verif ied [facility] Cardiac Ultrasound Laboratory Procedure Note Jasson Pascal MD - 05/23/2015For matting of this note might be different from the original. Procedure: Transthoracic Echocardiogram Patient: MAINOR Mace DOB(Age): [birth year]y) Med Rec#: [id number] Sex: F Site Loc: [facility] Ht / Wt: 175.3(cm)/68(kg Pt. Loc: Echo Lab BSA: 1.83 Study Date: 05/23/2015 Pt. Type: Outpati ent Tape: Referring: Wisam Isidro Reading: Jasson Pascal ([id number]) Cutter Hot Knife: Ashlie Valdez Diagnosis: CPT Codes: *Echo Full (06585) *Spectral Doppler (35853) *Color Doppler (09033) Indication: Syncope Rhythm: Sinus BP: 112/71 SUMMARY: 1. The left ventricular chamber size is normal. Left ventricular wall thickness is normal. There is normal brett bal left ventricular systolic function. The quantitative left ventricu lar ejection fraction by biplane Be's method is 63%. There are no le ft ventricular segmental wall motion abnormalities. Doppler assessment is consistent with normal left sided filling pressure. 2. Right ventricular chamber size, wall thickness, and systolic function are within normal limits. The estimated pulmonary artery systolic pressure is 20 mmHg (estimated right atr ial pressure is 3 mmHg). 3. There is no significant valvular dise ase. 4. The left main coronary artery is visu alized and is normal in origin. The right coronary artery is visualized and is normal in origin. 5. See remainder of report for additiona l findings. No prior echo for comparison. FINDINGS: Study Quality Adequate Left Ventricle The left ventricular chamber size is no rmal. Left ventricular wall thickness is norm al. There is no evidence of LVOT obstructio n. There is normal global left ventricular systolic function. The quantitative left ventricular eject ion fraction by biplane Be's method is 63%. There are no left ventricular segmental wall motion abnormalities. Doppler assessment is consistent with n ormal left sided filling pressure. Left Atrium The left atrium is normal in size. 24 m l/m2 by volume index. Right Ventricle Right ventricular chamber size, wall th ickness, and systolic function are within normal limits. The estimated pulmonary artery systolic pressure is 20 mmHg. The estimated right atrial pressure is 3 mmHg. Right Atrium The right atrium appears normal. Aortic Valve The aortic valve is trileaflet. The henry flets are thin with normal excursion. There is no aortic stenosis o r regurgitation present. Mitral Valve The mitral valve appears normal in stru cture and function. There is trace mitral regurgitation pre sent. Tricuspid Valve The tricuspid valve appears normal in s tructure and function. There is trace tricuspid regurgitation present. Pulmonic Valve The pulmonic valve appears normal in st ructure and function. There is trace pulmonic regurgitation p resent. Pericardium The pericardium appears normal and ther e is no evidence of a pericardial effusion. Aorta The aortic root is normal in size. The ascending aorta is normal in size. The left main coronary artery is visual ized and originates normally from the aorta. The right coronary artery is visualized and originates normally from the aorta. Pulmonary Artery The main pulmonary artery appears dane l. Venous The inferior vena cava appears normal i n size. There is a greater than 50% respiratory change in the inferior vena cava dimension. Misc See remainder of report for additional findings. Two-dimensional echo, spectral Doppler and color Doppler performed. Chambers 2D Value Units (Range) IVSd (2D) 0.7 cm LVPWd (2D) 0.8 cm IVS:LVPW ratio (2D) 0.8 ratio LVIDd (2D) 4.2 cm LVIDs (2D) 2.9 cm LVIDd (2D) index 2.3 cm/m2 LVIDs (2D) index 1.6 cm/m2 LV FS (2D) 32 % EF Teichholz (2D) 60 % Ao root diameter (2D2.8 cm (2.1 - 3.6) Ascending Ao 2.9 cm (2 - 3.5) Volumes/Mass Value Units (Range) LA Area 4 CH 16 cm2 (<21) LA ESV SP 4CH (A/L) 41.2 ml LA ESV SP 2CH (A/L) 39.7 ml LA ESV BP (A/L) 44.5 ml LA ESV BP (A/L) inde24.3 ml/m2 RA AREA 4CH 14 cm2 LA ESV SP 4CH (MOD) 35.5 ml LA ESV SP 2CH (MOD) 37.1 ml LV EDV SP 4CH (MOD) 90.4 ml LV ESV SP 4CH (MOD) 31.6 ml EF SP 4CH (MOD) 65 % LV EDV SP 2CH (MOD) 101.2 ml LV ESV SP 2CH (MOD) 37.4 ml EF SP 2CH (MOD) 63 % LV EDV BP 96.6 ml LV ESV BP 36.1 ml BP EF (MOD) 63 % LV mass (2D) 95.3 g LV mass (2D) index 52.1 g/m2 Diastolic/Systolic Function Value Units (Range) MV E-wave Vmax 1.1 m/sec MV deceleration [id number] msec MV A-wave Vmax 0.4 m/sec MV E:A ratio 2.5 ratio LV E:e' septal ratio0.2 ratio Tricuspid Valve Value Units (Range) TR Vmax 2.1 m/sec TR peak gradient 17.1 mmHg RAP 3 mmHg RVSP 20 mmHg Pulmonic Valve/Qp:Qs Value Units (Range) WA end-diastolic Vma0.7 m/sec PA end-diastolic pre5 mmHg Measurement Trending Name 05/23/2015 LV EDV BP 96.6411 LVIDd (2D) 4.25540237 LV ESV BP 36.1077 LVIDs (2D) 2.8263465 LA ESV BP (A/L) 44.5252 Wall Motion: Segment Name Rest Base-Anteroseptal Normal Base-Anterior Normal Base-Anterolateral Normal Base-Posterolateral Normal Base-Inferior Normal Base-Inferoseptal Normal Mid-Anteroseptal Normal Mid-Anterior Normal Mid-Anterolateral Normal Mid-Posterolateral Normal Mid-Inferior Normal Mid-Inferoseptal Normal Henderson-Septal Normal Henderson-Anterior Normal Henderson-Lateral Normal Henderson-Inferior Normal Henderson-Tip Normal This report has been electronically sign ed by: _ Jasson Pascal MD 05/23/2015 16:35: 52 Images reviewed and interpretation verif ied [facility] Cardiac Ultrasound Laboratory Wisam Isidro MD ECHO ORDERABLES EKG 12 Lead (05/23/2015 2:10 PM EDT) [facility] gist Method Time Signature Ventricular rate 64 BPM MUSE SYSTEM Atrial Rate 64 BPM MUSE SYSTEM P-R Interval 132 ms MUSE SYSTEM QRS Duration 78 ms MUSE SYSTEM Q-T Interval 374 ms MUSE SYSTEM QTC Calculated 385 ms MUSE SYSTEM (Bezet) Calculated P Cresco 41 degrees MUSE SYSTEM Calculated R Cresco 64 degrees MUSE SYSTEM Calculated T Cresco 43 degrees MUSE SYSTEM INTERPRETATION Normal sinus rhythm MUSE SYSTEM Normal ECG No previous ECGs available Confirmed by MD MATHEW, SILVERIO ([id number]) on 05/23/2015 5:34:02 PM Specimen Anatomical Collection Method Collection Time Receive d Time (Source) Location / / Volume Laterality 05/23/2015 2:10 PM 5 5:34 EDT PM EDT Wisam Isidro MD ECG ORDERABLES Performing Organization Address City/State/ZIP Code Phon e Number MUSE SYSTEM documented in this encounter Visit Diagnoses Diagnosis Syncope, unspecified Syncope, unspecified documented in this encounter Care Teams Automobile Service Writer Relationship Specialty Start Date End Date Chacha Jensen MD PCP - General 12/03/14 07/22/20 [address] [place] [address] documented as of this encounter
--- OUTSIDE RECORDS SUMMARY | 2022-08-07 15:16 | XMS_ITS | Encounter Summary ---
:1990 [place] [address] Care Team Providers Name Role Phone Sky Jensen MD Primary Care Provider Reason for Visit Reason Onset Date Comments Dizziness 10/22/2015 Encounter Details Date Type Department Care Team Description 10/22/2015 Telephone Cardiology at [facility] Iman Hamilton [facility] [place] [address] Social History Tobacco Use Types Packs/Day Years Used Date Smoking Tobacco: Every Day Cigarettes 1 5 Smokeless Tobacco: Never Alcohol Use Standard Drinks/Week Comments Yes 3 (1 standard drink = 0.6 oz pure alcoho l) Sex Assigned at Date Recorded Not on file documented as of this encounter Miscellaneous Notes Telephone Encounter - Iman Hamilton RN - 10/22/2015 8:46 AM EST Received called from [facility] ED - patient evaluated there for her syncopal episode. Hemodynamically stable, some head trauma but no other findings. BP 118 systolic We discussed the role of hydration, possibly increasing the midodrine to 5mg tid. She is pending a stress test in the next 10 days. Will need follow up in the EP clinic THANG ISIDRO MD Outgoing call placed to patient after receipt of voicemail reporting continued syncoped despite recent OV with change to meds as below. Below copied from last OV note 10/10/[address] Panda Assessment/Plan: ?? Lori Cruz is a 25 y.o. female presenting for the follow up of recurrent syncope suspected to be neurocardiogenic syncope, with failure of fludrocortisone. Past medical history includes exercise-induced asthma, adrenal hyperandrogenism, hirsutism, hiatal hernia. Her tilt table test was only moderately helpful - it showed that she has the substrate for neurocardiogenic syncope, since the symptoms elicited do not match her syncope spells. While her episodes of syncope sound mostly like neurocardiogenic syncope, there are atypical episodes, including when she is walking around. She also has little warning. Therefore, I think she deservesfurther evaluation, to exclude other causes: 1) She will undergo further cardiac rhythm evaluation with a Ziopatch monitor (for up to 2 weeks). This was applied in our clinic today. 2) She will undergo an exercise stress test, to assess for exertional arrhythmias or other exertional problems. I prefer her to have this test done at [facility], so I may review the strips. 3) Typically, we recommend that patients be evaluated for adrenal insufficiency (usually with cosyntropin stimulation testing) and pheochromocytoma (with serum or urine metanephrines). 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 I encouraged the patient to follow up in their office, to pursue this specialty testing (our office cannot perform cosyntropin stimulation testing). She was reluctantto proceed with this, she will discuss this with her PCP Dr. Jensen. However, her episodes do mostly sound like neurocardiogenic syncope. I recommended she optimize her treatment in the following ways: 1) Start wearing compression stockings, up to the thighs. The patient seemed reluctant to accept this recommendation. 2) minimize fludrocortisone dosing to 0.1 mg daily, to minimize side effects of weight gain and headaches. 3) Start low dose midodrine, 2.5 mg bid-tid, due to recurrent events. This can be increased up to 10mg tid, by Dr. Jensen. She continues to hydrate well. Given her recurrent episodes, I've asked the patient to follow up in 3 months. I saw this patient without the assistance of the cardiac EP attending. Recommendations: #testing to exclude other causes ?? Ziopatch cardiac rhythm monitor ?? Exercise stress test ?? recommende endocrine testing, patient will discuss with PCP #optimize treatment of neurocardiogenic syncope ?? Compression stockings ?? Decrease fludrocortisone to 0.1 mg daily, to avoid side effects ?? Start midodrine 2.5 mg tid. #follow up in 3 months Jonatan Price MD Cardiac Electrophysiology Fellow Physician Pager [phone] Daytime She is taking meds as she is supposed to, but then she reports her PCP does not want her on the florinef with midodrine so she is only taking midodrine 2.5 mg TID. She is not wearing compression stockings. She was standing cutting potatoes noted her ears ringing then she awoke on the floor. Lower back/hip and back of head are sore. PLAN- Instructed patient to be seen today by PCP to evaluate her after sustaining head injury during syncopal episode, purchase some compression stocking and await f/u from us with plan from Dr. Panda. Encounter forwarded to Dr. Panda for review/advice, with RN f/u to patient. Iman Hamilton RN 10/22/2015 8:58 AM documented in this encounter Plan of Treatment Not on filedocumented as of this encounter Visit Diagnoses Not on filedocumented in this encounter Care Teams Band Reamer Machine Operator Relationship Specialty Start Date End Date Sky Jensen MD PCP - General 12/03/14 07/22/[address] [place] [id number] documented as of this encounter
--- OUTSIDE RECORDS SUMMARY | 2022-08-07 15:16 | XMS_ITS | Encounter Summary ---
:1990 Author Organization [facility] [place] [address] Care Team Providers Name Role Phone Sky Jensen MD Primary Care Provider Encounter Details Date Type Department Care Team Description 08/22/2015 Orders Only Cardiology at [facility] Jonatan Price MD Syncope, unspecified [facility] syn cope [place] [address] CARDIOLOGY DEPT [phone] [place], [place] [address] Social History Tobacco Use Types Packs/Day Years Used Date Smoking Tobacco: Every Day Cigarettes 1 5 Smokeless Tobacco: Never Alcohol Use Standard Drinks/Week Comments Yes 3 (1 standard drink = 0.6 oz pure alcoho l) Sex Assigned at Date Recorded Not on file documented as of this encounter Plan of Treatment Pending Results Name Type Priority Associated Diagnoses Date/Ti la EP Tilt Table Cardiac Services Routine Syncope, unspecified 9:19 AM Test syncope type EST documented as of this encounter Visit Diagnoses Diagnosis Syncope, unspecified syncope type documented in this encounter Care Teams County Historian Relationship Specialty Start Date End Date Sky Jensen MD PCP - General 12/03/14 07/22/20 [address] [place] [address] documented as of this encounter
--- OUTSIDE RECORDS SUMMARY | 2022-08-07 15:16 | XMS_ITS | Encounter Summary ---
:1990 [place] [address] Care Team Providers Name Role Phone Sky Jensen MD Primary Care Provider Encounter Details Date Type Department Care Team Description 11/01/2015 Hospital Encounter Non-Invasive Thang Isidro, Vaso vagal syncope Cardiology Lab Malini RODRIGUES [facility] CARDIOLOGY DE PT. [address] [phone] (Work) [phone] Social History Tobacco Use Types Packs/Day Years Used Date Smoking Tobacco: Every Day Cigarettes 1 5 Smokeless Tobacco: Never Alcohol Use Standard Drinks/Week Comments Yes 3 (1 standard drink = 0.6 oz pure alcoho l) Sex Assigned at Date Recorded Not on file documented as of this encounter Medications at Time of Discharge Medication Sig Dispensed Refills Start Date End Date PROAIR HFA 90 mcg/actuation as needed. 0 09/12/20 14 HFA Aerosol Inhaler triamcinolone (KENALOG) 0.1 0 09/12/20 14 % Ointment fludrocortisone (FLORINEF) 0.1 mg every 0 015 11/04/2015 0.1 mg Tablet morning. midodrine (PROAMATINE) 2.5 Take 1 tablet by 90 tablet 0 11/04/2015 mg Tablet mouth 3 times daily. fludrocortisone (FLORINEF) Take 0.1 mg by 0 11/04/2015 0.1 mg Tablet mouth every other day. documented as of this encounter Plan of Treatment Not on filedocumented as of this encounter Procedures Procedure Name Priority Date/Time Associated Diagnosis Comme nts STRESS TEST, EXERCISE Routine 11/01/2015 9:44 AM EST Vasovagal syncope (TREADMILL) documented in this encounter Results Stress Test, Exercise (Treadmill) (11/01/2015 9:44 AM EST) Anatomical Region Laterality Modality Other Specimen (Source) Anatomical Location Collection Method / Collectio n Time Received Time / Laterality Volume Narrative This result has an attachment that is no t available. Thang Isidro MD CARDIAC SERVICES ORDERABLES documented in this encounter Visit Diagnoses Diagnosis Vasovagal syncope Syncope and collapse documented in this encounter Care Teams Voice Teacher Relationship Specialty Start Date End Date Sky Jensen MD PCP - General 12/03/14 07/22/[address] [place] [id number] documented as of this encounter
--- OUTSIDE RECORDS SUMMARY | 2022-08-07 15:16 | XMS_ITS | Encounter Summary ---
:1990 [place] [address] Care Team Providers Name Role Phone Chacha Jensen MD Primary Care Provider Reason for Visit Auth/Cert Specialty Diagnoses / Procedures Referred By Contact Refer red To Contact Procedures observation Referral ID Status Reason Start Date Expiration Date Visits Requ ested Visits Authorized [id number] 1 1 Encounter Details Date Type Department Care Team Description 10/10/2015 Office Visit Cardiology at [facility] Jonatan Price MD Vasovagal syncope [facility] [place] [address] CARDIOLOGY DEPT [phone] [place] [id number] (Wo rk) Social History Tobacco Use Types Packs/Day Years Used Date Smoking Tobacco: Every Day Cigarettes 1 5 Smokeless Tobacco: Never Alcohol Use Standard Drinks/Week Comments Yes 3 (1 standard drink = 0.6 oz pure alcoho l) Sex Assigned at Date Recorded Not on file documented as of this encounter Last Filed Vital Signs Vital Sign Reading Time Taken Comments Blood Pressure 112/72 10/10/2015 11:19 AM EST Pulse 81 10/10/2015 11:19 AM EST irreg Temperature - - Respiratory Rate - - Oxygen Saturation 100% 10/10/2015 11:19 AM EST on truong m air Inhaled Oxygen Concentration - - Weight 78 kg (172 lb) 10/10/2015 11:19 AM EST Height 175.3 cm (5' 9) 10/10/2015 11:19 AM EST Body Mass Index 25.4 10/10/2015 11:19 AM EST documented in this encounter Progress Notes Navneet Garcia MD - 11/10/2015 2:09 PM EST ___ Cardiac Electrophysiology Attending Addendum Although I provided general supervision of Dr. Rogers during this patient encounter, for purposes of billing I did not directly provide care, and I was not involved in the clinical decision making (but the plan of care appears to be reasonable). ___ Navneet Garcia MD Navneet Garcia MD - 11/10/2015 2:08 PM EST Cardiac Electrophysiology Attending Addendum Although I provided general supervision of Dr. Price during this patient encounter, for purposes of billing I did not directly provide care, and I neither interviewed nor examined the patient. ___ Navneet Garcia MD Navneet Garcia MD - 10/18/2015 7:49 AM EST Cardiac Electrophysiology Attending Addendum Although I provided general supervision of Dr. Price during this patient encounter, for purposes of billing I did not directly provide care, and I neither interviewed nor examined the patient. ___ Navneet Garcia MD Jonatan Price - 10/10/2015 7:27 PM EST Images from the original note were not included. Cardiac Electrophysiology Established Patient Visit PCP: CHACHA JENSEN MD CC: Follow up of suspected neurocardiogenic syncope, with recurrent syncope HPI: Lori Cruz is a 25 y.o. female who presents for for evaluation of recurrent syncope, previously suspected to be neurocardiogenic syncope. Past medical history includes exercise-induced asthma, adrenal hyperandrogenism, hirsutism, hiatal hernia. Since our last visit on 05/23/2015, the patient has had additional syncope episodes. Her typical symptoms are tinnitus (described as ringing in the ears), lightheadedness, and typically happen with prolonged standing. There is little warning with the episodes. 1) May 2015, typical symptoms. Occurred with standing. Not on medication. Started on fludrocortisone 0.[address] Jensen, after this event. 2) June 2015, typical symptoms. Occurred with standing. Occurred while on fludrocortisone 0.1mg daily. 3) August 14, 2015, typical symptoms, but occurred with walking around her kitchen and cooking Thanksgiving dinner, somewhat atypical for her. Occurred on fludrocortisone 0.1 mg ever other day. She reports being on varying levels of fludocortisone, up to 0.2 mg daily. On this dose, she had severe headaches and gained 15 lbs of fluid weight. She currently takes fludrocortisone 0.1 mg qAM and 0.1mg every other evening. She still has some headaches and fluid retention on this dose. She states she felt reasonable on 0.1 mg daily. Because of her recurrent syncope episodes despite use of fludrocortisone, Dr. Jensen has referred the patient for tilt table testing, which I performed earlier today. She had a typical Bezold-Jarisch reflex, but the symptoms elicited were mostly unlike her syncope spells. ROS: : Recently underwent pelvic surgery with fallopian tube removal She has never passed out while driving Past Medical History Diagnosis Date ??? Mild exercise-induced asthma ??? History of repair of hiatal hernia ??? Hyperandrogenism ??? H/O female hirsutism ??? ADHD (attention deficit hyperactivity disorder) Outpatient Prescriptions Marked as Taking for the 10/10/15 encounter (Office Visit) with Jonatan Price MD Medication Sig Dispense Refill ??? fludrocortisone (FLORINEF) 0.1 mg Tablet 0 ??? PROAIR HFA 90 mcg/actuation HFA Aerosol Inhaler as needed. 0 ??? triamcinolone (KENALOG) 0.1 % Ointment 0 Allergies: Allergies Allergen Reactions ??? Ibuprofen Other (See Comments) Nose bleeds ??? Lidocaine Itching ??? Nsaids (Non-Steroidal Anti-Inflammatory Drug) Other (See Comments) Nosebleeds Social History: History Social History ??? Marital Status: Single Spouse Name: N/A Number of Children: N/A ??? Years of Education: N/A Occupational History ??? Not on file. Social History Main Topics ??? Smoking status: Current Every Day Smoker -- 1.00 packs/day for 5 years Types: Cigarettes ??? Smokeless tobacco: Never Used ??? Alcohol Use: 1.8 oz/week 3 Standard drinks or equivalent per week ??? Drug Use: No ??? Sexual Activity: Not on file Other Topics Concern ??? Not on file Social History Narrative Family History: Family History Problem Relation Age of Onset ??? Sudden Neg Hx ??? Coronary Artery Disease Maternal Grandmother 60 ??? Heart Failure Maternal Grandmother ??? Syncope Maternal Aunt ??? Syncope Maternal Grandmother ??? Seizure Disorder Sister half-sister ??? Syncope Sister half-sister Exam: Vitals: Filed Vitals: 10/10/15 1119 BP: 112/72 Pulse: 81 General: In no acute distress, nondiaphoretic, nontachypneic Head: normocephalic, atraumatic ENT: clear oropharynx, moist mucous membranes Abdomen: soft, NT/ND Ext: no clubbing, cyanosis or edema. Diagnostics: I performed her tilt table test earlier today. She had a typical Bezold-Jarisch reflex, with sudden heart rate-slowing and hypotension in response to combination of head-up tilt and dobutamine infusion. No presyncopal symptoms though, and mostly atypical symptoms (nausea, vomitting, flushing are unlike her prior spells). Echo 05/23/2015: 1. The left ventricular chamber size is normal. Left ventricular wall thickness is normal. There is normal global left ventricular systolic function. The quantitative left ventricular ejection fraction by biplane Be's method is 63%. There are no left ventricular segmental wall motion abnormalities. Doppler assessment is consistent with normal left sided filling pressure. ?? 2. Right ventricular chamber size, wall thickness, and systolic function are within normal limits. The estimated pulmonary artery systolic pressure is 20 mmHg (estimated right atrial pressure is 3 mmHg). 3. There is no significant valvular disease. ?? 4. The left main coronary artery is visualized and is normal in origin. ?? The right coronary artery is visualized and is normal in origin. 5. See remainder of report for additional findings. No prior echo for comparison. EKG 05/23/2015: normal sinus rhythm, normal EKG. No evidence of long QT, Brugada. Assessment/Plan: Lori Cruz is a 25 y.o. female [...] her to have this test done at [facility], so I may review the strips. 3) Typically, we recommend that patients be evaluated for adrenal insufficiency (usually with cosyntropin stimulation testing) and pheochromocytoma (with serum or urine metanephrines). 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 I encouraged the patient to follow up [...] Price MD Cardiac Electrophysiology Fellow Physician Pager [phone] Daytime documented in this encounter Plan of Treatment Not on filedocumented as of this encounter Results Stress Test, Exercise (Treadmill) (11/01/2015 9:44 AM EST) Anatomical Region Laterality Modality Other Specimen (Source) Anatomical Location Collection Method / Collectio n Time Received Time / Laterality Volume Narrative This result has an attachment that is no t available. Thang Isidro MD CARDIAC SERVICES ORDERABLES Ziopatch (10/10/2015 12:57 PM EST) Anatomical Region Laterality Modality Other Specimen (Source) Anatomical Location Collection Method / Collectio n Time Received Time / Laterality Volume Narrative 10/30/2015 12:14 PM EST [facility] ?ZIO PATCH ??REPORT Ordering Provider: ??Jonatan Price MD ? ? Interpreting Physician: Jh guaman MD ?? Baseline Date: ??10/10/15 ?? Indication for Zio Patch: ??Syncope, vas ovagal Quality of recordings submitted: [] Acceptable [x] Moderate artifact [] Considerable artifact Rhythm interpretation: 14 day Zio patch recording. ??Mean HR 82 bpm, range 46-151 bpm. No atrial or ventricular ectopy. Triggered events X 5 correlated with NSR at 81-114 bpm. Diary entries X 2 (dizzy, lightheaded) c orrelated with NSR at 94-108 bpm. ?? Impression: ??Symptoms are associated wi th NSR; clinical correlation required. No dysrhythmias noted. Jh Swanson MD Thang Isidro MD CARDIAC SERVICES ORDERABLES documented in this encounter Visit Diagnoses Diagnosis Vasovagal syncope Syncope and collapse Vasovagal syncope Syncope and collapse documented in this encounter Care Teams Meat Process Worker Relationship Specialty Start Date End Date Chacha Jensen MD PCP - General 12/03/14 07/22/20 [address] [place] [address] documented as of this encounter
--- OUTSIDE RECORDS SUMMARY | 2022-08-07 15:16 | XMS_ITS | Encounter Summary ---
:1990 Author Organization [facility] [place] [address] Care Team Providers Name Role Phone Jh Guillaume MD Primary Care Provider Encounter Details Date Type Department Care Team Description 08/01/2012 Office Visit Gastroenterology at [facility] Celeste Quiroz, [place] [address] Social History Tobacco Use Types Packs/Day Years Used Date Smoking Tobacco: Every Day Alcohol Use Standard Drinks/Week Comments No 0 (1 standard drink = 0.6 oz pure alcoho l) Sex Assigned at Date Recorded Not on file documented as of this encounter Progress Notes Celeste Fisher, RN - 08/01/2012 12:50 PM EST [id number] Garcia capsule deployed at 34 cm below incisors First ph is 7.2. documented in this encounter Plan of Treatment Not on filedocumented as of this encounter Visit Diagnoses Not on filedocumented in this encounter Care Teams Dehorner Relationship Specialty Start Date End Date Jh Guillaume MD PCP - General 08/01/12 09/28/12 [place] [address] documented as of this encounter
--- OUTSIDE RECORDS SUMMARY | 2022-08-07 15:16 | XMS_ITS | Encounter Summary ---
:1990 Author Organization [facility] [place] [address] Care Team Providers Name Role Phone Sky Jensen MD Primary Care Provider Encounter Details Date Type Department Care Team Description 01/22/2015 Telephone Endocrinology at [facility] Viviana Cooper, RN [facility] [place] [address] Social History Tobacco Use Types Packs/Day Years Used Date Smoking Tobacco: Every Day Cigarettes 1 4 Smokeless Tobacco: Never Alcohol Use Standard Drinks/Week Comments No 0 (1 standard drink = 0.6 oz pure alcoho l) Sex Assigned at Date Recorded Not on file documented as of this encounter Miscellaneous Notes Telephone Encounter - Viviana Cooper RN - 01/23/2015 2:11 PM EDT Message I spoke with Dr. Jnesen's nurse, who told me that the patient was concerned about lowering her BP and that Dr. Jensen agreed that it could be an issue but that he didn't appear to have actually toldher not to take it. Can you let her know that hypotension would be unlikely to occur? If she is concerned about it, we can start with an OCP. Thanks, Maldonado Placed call to Lori, no answer left message to call back. Telephone Encounter - Viviana Cooper RN - 01/22/2015 1:52 PM EDT Received call back from Lori, message from Dr Elizondo given. Lori states she would prefer if Dr Elizondo was able to speak with her PCP. States she is unsure what to do. Will forward to Dr Elizondo Telephone Encounter - Viviana Cooper RN - 01/22/2015 1:15 PM EDT Message She has two options here. I think spironolactone is unlikely to cause hypotension for her. However,if she would like to follow her PCP's advise, she does not need to do this. Instead, we could start an OCP, which should also help. Can you see which option she would prefer? Her 17-OH P level was normal. Thanks, Maldonado Placed call to Butts to let her know, no answer left message to call back. Telephone Encounter - Viviana Cooper RN - 01/22/2015 8:37 AM EDT Message Viviana, I got her 17-OP results but not the potassium. Can you see if that got done? Thanks, Maldonado Placed call to [facility], spoke with Lizet in lab who states that potassium was not done. Placed call to Butts who states that she did not have the potassium drawn as she has not started the medication. States that her PCP told her not to take it as she has low BP to begin with. Will forward to Dr Elizondo documented in this encounter Plan of Treatment Not on filedocumented as of this encounter Visit Diagnoses Not on filedocumented in this encounter Care Teams Mill Tender Warm Up Relationship Specialty Start Date End Date Sky Jensen MD PCP - General 12/03/14 07/22/[address] [place] [id number] documented as of this encounter
--- OUTSIDE RECORDS SUMMARY | 2022-08-07 15:16 | XMS_ITS | Encounter Summary ---
:1990 Author Organization [facility] [place] [address] Care Team Providers Name Role Phone Cornelia Hernandez Primary Care Provider Reason for Visit Reason Comments Skin Lesion Consultation (Routine) - Closed Specialty Diagnoses / Procedures Referred By Contact Refer red To Contact Dermatology Diagnoses Plantar wart Cornelia Hernandez PA [facility] [address] [place], [place] [address] [place] [address] Fax: Referral ID Status Reason Start Date Expiration Date Visits V isits Requested Authorized [id number] Closed Consult, Test 10/28/2020 10/28/2021 [facility] PCP Updated and/or Approved Encounter Details Date Type Department Care Team Description 11/21/2020 Office Visit Dermatology at [facility] Yosef De Los Santos Clavus; Noel RODRIGUES Verrusaran vulgaris [address] [place] [address] [address] [facility] [place], [place] [address] (Wo rk) Social History Tobacco Use Types Packs/Day Years Used Date Smoking Tobacco: Former Cigarettes 1 5 Smokeless Tobacco: Never Alcohol Use Standard Drinks/Week Comments Yes 3 (1 standard drink = 0.6 oz pure alcoho l) Sex Assigned at Date Recorded Not on file documented as of this encounter Progress Notes Yosef Taylor MD - 11/21/2020 3:20 PM EST Images from the original note were not included. DERMATOLOGY - NEW PATIENT NOTE Date of service: 11/21/2020 Lori Cruz : 1990, 30 y.o. Chief Complaint: Chief Complaint Patient presents with ??? Skin Lesion HPI: Lori Cruz is a 30 y.o. female referred by Cornelia TALBERT with the following concerns: New patient here today for wart-like lesions on the left and and bilateral plantar feet. The lesionson the feet can be painful when walking. She has treated with LN2, OTC salicylic acid pads, and is currently using 5FU cream to the feet and has been using it nightly for 1 week. Patient notes that luis alfredohas had her HPV vaccines. Relevant Skin History: - Okay to leave detailed message with results? 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 fluorouraciL (EFUDEX) 5 % Cream Apply 1 gram thin layer to affected sites once daily. Cover withbandaid. 40 g 0 ??? EPINEPHrine 0.3 mg/0.3 mL Auto-Injector Inject 0.3 mg into the muscle once. ??? PROAIR HFA 90 mcg/actuation HFA Aerosol Inhaler as needed. 0 ??? triamcinolone (KENALOG) 0.1 % Ointment 0 No current facility-administered medications for this visit. Allergies: Allergies Allergen Reactions ??? Fruit Extracts Anaphylaxis Chest tightness, blotchiness, and then stops breathing Per patient ( kiwi fruit) cant touch them or eat them ??? Ibuprofen Other (See Comments) Nose bleeds ??? Lidocaine Itching ??? Nsaids (Non-Steroidal Anti-Inflammatory Drug) Other (See Comments) Nosebleeds Review of Systems: - General: Feels well - Skin: No other skin concerns. Examination: - Constitutional: Patient was alert, well-appearing and in no noticeable distress. - Focused Exam: Skin examination of the left hand and feet was normal with the exception of the findings listed below - A nurse/MA was present and on standby during my examination. Diagnosis/Skin findings/Assessment/Plan: #. Verruca Vulgaris: Patient with hyperkeratotic papule on the left hand, pinpoint thrombosed capillaries appreciated on dermoscopy. - continue Rx: 5FU twice daily -Joint decision to pursue LN2 at this time Procedure Note Procedure: Destruction of lesion(s) with cryotherapy. Number: 1 Location: left hand Discussed procedure and expectations including risks (including risk of hypopigmentation) and benefits. Verbal consent obtained. Frozen with LN2, 15-30 second thaw time, TWICE. There were no complications; the patient tolerated the procedure well. Post-procedure expectations and wound care were reviewed. # Clavus : On the bilateral lateral plantar feet, symmetrically and in areas of pressure, are hypertrophic thickened plaques of skin with normal overlying skin lines. - recommend Amlactin BID and using a pumice stone daily - recommend soaking feet in a 1:1 vinegar solution - recommend following up with Lead Electrical Engineer - Patients with recurrent or recalcitrant corns may require referral to a administrative assistant front desk or orthopedic surgeon for surgical correction of bony abnormalities. - discussed these are not warts and that management should focus on pressure offloading, chemical exfoliation with hydroxyacid products, and mechanical exfoliation with a pumice stone. Recommended she speak with her administrative assistant front desk about orthotics or other offloading devices. RTC: PRN Note initiated by SHAHIDA Chun. I, SHAHIDA Chun, have performed the documentation for this encounter in the presence of and acting as a scribe for Yosef Taylor MD. I performed the services which were documented by the scribe, and I agree with the accuracy of the documentation in this encounter. Yosef Taylor MD Reviewed and signed by Yosef Taylor MD Resident in Dermatology [facility] Patient seen in conjunction with staff fitness centre manager: Melo Escobar MD Department of Dermatology [facility] Melo Escobar MD - 11/21/2020 3:20 PM EST I directly supervised Dr. Taylor during this office visit. Dr. Taylor presented the history and physical exam to me. I then saw and examined this patient with Dr. Taylor . We reviewed the history and pertinent details and I confirmed the physical findings. I agree with the details of the history and physical exam as documented in Dr. Taylor's note. MELO ESCOBAR MD Staff Physician documented in this encounter Plan of Treatment Not on filedocumented as of this encounter Visit Diagnoses Diagnosis Clavus Corns and callosities Verruca vulgaris Viral warts, unspecified documented in this encounter Care Teams Public Speaking Instructor Relationship Specialty Start Date End Date Cornelia Hernandez PA PCP - General Family Medicine 07/23/[address] [place] [id number] documented as of this encounter
--- OUTSIDE RECORDS SUMMARY | 2022-08-07 15:16 | XMS_ITS | Encounter Summary ---
:1990 Author Organization [facility] [place] [address] Care Team Providers Name Role Phone Cornelia Hernandez Primary Care Provider Reason for Visit Reason Comments Plantar Warts Encounter Details Date Type Department Care Team Description 11/28/2020 Office Visit Podiatry at [facility] Brook Michelle, Metatarsalgia, left foot; [facility] Hyperkeratosis [facility] [address], [place] [address] [phone] Social History Tobacco Use Types Packs/Day Years Used Date Smoking Tobacco: Former Cigarettes 1 5 Smokeless Tobacco: Never Alcohol Use Standard Drinks/Week Comments Yes 3 (1 standard drink = 0.6 oz pure alcoho l) Sex Assigned at Date Recorded Not on file documented as of this encounter Patient Instructions Patient InstructionsBrook Michelle DPM - 11/28/2020 4:00 PM EST POWERSTEP PINNACLE PLUS MET ORTHOTICS documented in this encounter Progress Notes Brook Michelle DPM - 11/28/2020 4:00 PM EST Outpatient Foot Care Clinic Note Name: Lori Cruz Age:30 y.o. MR#: [id number] Date of Service: 11/28/2020 SUBJECTIVE: Lori Cruz is a 30 y.o. female who returns to clinic for follow-up visit. Patient reports significant improvement at site of previous plantar warts. Relates right foot resolved with callus formation on left foot with burning sensation. Reports 4 out of 10 left foot pain. Relates supportive shoe gear. Denies orthotics with offloading. No other pedal complaints. No constitutional symptoms reported. Allergies Allergen Reactions ??? Fruit Extracts Anaphylaxis Chest tightness, blotchiness, and then stops breathing Per patient ( kiwi fruit) cant touch them or eat them ??? Ibuprofen Other (See Comments) Nose bleeds ??? Lidocaine Itching ??? Nsaids (Non-Steroidal Anti-Inflammatory Drug) Other (See Comments) Nosebleeds Past Medical History: Diagnosis Date ??? ADHD (attention deficit hyperactivity disorder) ??? H/O female hirsutism ??? History of repair of hiatal hernia ??? Hyperandrogenism ??? Mild exercise-induced asthma Social History Socioeconomic History ??? Marital status: Single Spouse name: Not on file ??? Number of children: Not on file ??? Years of education: Not on file ??? Highest education level: Not on file Occupational History ??? Not on file Tobacco Use ??? Smoking status: Former Smoker Packs/day: 1.00 Years: 5.00 Pack years: 5.00 Types: Cigarettes ??? Smokeless tobacco: Never Used Substance and Sexual Activity ??? Alcohol use: Yes Alcohol/week: 3.0 standard drinks Types: 3 Standard drinks or equivalent per week ??? Drug use: No ??? Sexual activity: Not on file Other Topics Concern ??? Not on file Social History Narrative ??? Not on file Social Determinants of Health Financial Resource Strain: ??? Difficulty of Paying Living Expenses: Not on file Food Insecurity: ??? Worried About Running Out of Food in the Last Year: Not on file ??? Ran Out of Food in the Last Year: Not on file Transportation Needs: ??? Lack of Transportation (Medical): Not on file ??? Lack of Transportation (Non-Medical): Not on file Physical Activity: ??? Days of Exercise per Week: Not on file ??? Minutes of Exercise per Session: Not on file No reported Family History Problem Relation Age of Onset ??? Sudden Neg Hx ??? Coronary Artery Disease Maternal Grandmother 60 ??? Heart Failure Maternal Grandmother ??? Syncope Maternal Aunt ??? Syncope Maternal Grandmother ??? Seizure Disorder Sister half-sister ??? Syncope Sister half-sister Current Outpatient Medications on File Prior to Visit Medication Sig Dispense Refill ??? fluorouraciL (EFUDEX) 5 % Cream Apply 1 gram thin layer to affected sites once daily. Cover withbandaid. 40 g 0 ??? EPINEPHrine 0.3 mg/0.3 mL Auto-Injector Inject 0.3 mg into the muscle once. ??? PROAIR HFA 90 mcg/actuation HFA Aerosol Inhaler as needed. 0 ??? triamcinolone (KENALOG) 0.1 % Ointment 0 No current facility-administered medications on file prior to visit. ROS: SKIN: +callus NEURO: +burning MSK: + Foot pain The remainder of 10 ROS were reviewed and negative. OBJECTIVE: GEN: NAD, AAOx3. Appears well. DERM: Previous sites of warts bilateral feet resolved. Right foot minimal hyperkeratosis. Left foot hyperkeratotic skin lesion measuring approximately 0.5 x 0.5 cm. No new lesions. No signs of infection. VASC: DP/PT palpable. No edema. No rest pain. No color changes. No claudication. NEURO: Sharp/dull intact. MSK: Mild tenderness on exam sub left fifth metatarsal head and with range of motion. Ambulatory. Noweakness or wasting. ASSESSMENT: Painful chronic plantar warts, bilaterally-resolved Hyperkeratosis left foot Metatarsalgia left foot PLAN: Patient reexamined in clinic today. At this time warts have significantly improved, however discussed callus development, left greater than right. Encouraged use of pumice stone after shower. Advised patient to begin using orthotics with arch support and offloading metatarsal pads. Recommendation provi ded. Continue with supportive shoe gear. If any worsening seek prior medical care. Answered all questions. Patient verbalized understanding of all instructions. FOLLOW UP: As scheduled or sooner if any concerns or changes arise Brook Michelle DPM Research And Development Manager, [facility] documented in this encounter Plan of Treatment Not on filedocumented as of this encounter Visit Diagnoses Diagnosis Metatarsalgia, left foot Hyperkeratosis Acquired keratoderma documented in this encounter Care Teams Material Disposition Inspector Relationship Specialty Start Date End Date Cornelia Hernandez PA PCP - General Family Medicine 07/23/20 [address] [place] [address] documented as of this encounter
--- OUTSIDE RECORDS SUMMARY | 2022-08-07 15:16 | XMS_ITS | Encounter Summary ---
:1990 [place] [address] Care Team Providers Name Role Phone Cornelia Hernandez Primary Care Provider Encounter Details Date Type Department Care Team Description 06/10/2021 Telephone Wound Care at [facility] [place] [address] [place] [address] [phone] Social History Tobacco Use Types Packs/Day Years [...] on filedocumented in this encounter Care Teams Musical String Maker Relationship Specialty Start Date End Date Cornelia Hernandez PA PCP - General Family Medicine 07/23/20 [address] [place] [address] documented as of this encounter
--- OUTSIDE RECORDS SUMMARY | 2022-08-07 15:16 | XMS_ITS | Encounter Summary ---
:1990 Author Organization [facility] [place] [address] Care Team Providers Name Role Phone Cornelia Hernandez Primary Care Provider Reason for Visit Reason Comments Plantar Warts Encounter Details Date Type Department Care Team Description 01/23/2021 Office Visit Podiatry at [facility] Brook Michelle, Metatarsalgia of both feet; [facility] DP Hyperkeratosis [place] [place] [facility] [address] [address] [phone] Social History Tobacco Use Types Packs/Day Years Used Date Smoking Tobacco: Former Cigarettes 1 5 Smokeless Tobacco: Never Alcohol Use Standard Drinks/Week Comments Yes 3 (1 standard drink = 0.6 oz pure alcoho l) Sex Assigned at Date Recorded Not on file documented as of this encounter Progress Notes Brook Michelle, DPM - 01/23/2021 4:00 PM EDT Outpatient Foot Care Clinic Note Name: Lori Cruz Age:30 y.o. MR#: [id number] Date of Service: 01/23/2021 SUBJECTIVE: Lori Cruz is a 30 y.o. female who returns to clinic with chief complaint of pain in the ball of both feet. Rates pain as 4 out of 10 today. Patient has history of previous warts whichresolved with treatment, however has residual calluses. Has been soaking in vinegar as instructed bydermatology. States she received orthotics a few weeks ago and has begun use with improvement noted.No other pedal complaints. No constitutional symptoms reported. [...] Strain: ??? Difficulty of Paying Living Expenses: Food Insecurity: ??? Worried About Running Out of Food in the Last Year: ??? Ran Out of Food in the Last Year: Transportation Needs: ??? Lack of Transportation (Medical): ??? Lack of Transportation (Non-Medical): Physical Activity: ??? Days of Exercise per Week: ??? Minutes of Exercise per Session: Stress: ??? Feeling of Stress : Social Connections: ??? Frequency of Communication with Friends and Family: ??? Frequency of Social Gatherings with Friends and Family: ??? Attends Gnosticist Services: ??? Active Member of Clubs or Organizations: ??? Attends Club or Organization Meetings: ??? Marital Status: Intimate Partner Violence: ??? Fear of Current or Ex-Partner: ??? Emotionally Abused: ??? Physically Abused: ??? Sexually Abused: No reported Family History Problem Relation Age [...] file prior to visit. ROS: SKIN: +callus MSK: + Foot pain The remainder of 10 ROS were reviewed and negative. OBJECTIVE: GEN: Alert, awake, NAD DERM: No evidence of verrucous lesions today. Minor hyperkeratosis bilateral plantar fifth metatarsal head with no signs of infection. No increased warmth. No erythema. VASC: Pedal pulses palpable. No rest pain. No edema. NEURO: Epicritic sensation intact to light touch bilaterally. MSK: Tenderness on exam stab bilateral fifth metatarsal head with slight bony prominence. Ambulatory. ASSESSMENT: Metatarsalgia bilaterally, history of plantar warts Bilateral hyperkeratosis PLAN: Patient reevaluated. Discussed with patient importance of continuing with orthotics for a longer period to fully assess offloading and pressure reduction. Can increase offloading padding in future if pain and lesions continue to persist. Continue with soaking as per dermatology. Continue supportive shoe gear and avoidance of barefoot ambulation. Encouraged use of moisturization regularly with pumice stone. If any worsening seek prompt medical care. Patient verbalized understanding of all instructions. FOLLOW UP: 3 months or sooner if any concerns arise Brook Michelle DPM Nuclear Monitoring Technician, [facility] documented in this encounter Plan of Treatment Not on filedocumented as of this encounter Visit Diagnoses Diagnosis Metatarsalgia of both feet Enthesopathy of ankle and tarsus, unspec ified Hyperkeratosis Acquired keratoderma documented in this encounter Care Teams Supervisor Food Checkers And Cashiers Relationship Specialty Start Date End Date Cornelia Hernandez PA PCP - General Family Medicine 07/23/20 [address] [place] [address] documented as of this encounter
--- OUTSIDE RECORDS SUMMARY | 2022-08-07 15:16 | XMS_ITS | Encounter Summary ---
:1990 [place] [address] Care Team Providers Name Role Phone Sky Jensen MD Primary Care Provider Reason for Visit Reason Comments Foot Problem calluses Encounter Details Date Type Department Care Team Description 07/22/2016 Office Visit Wound Care [place] [address] Social History Tobacco Use Types Packs/Day Years Used Date Smoking Tobacco: Every Day Cigarettes 1 5 Smokeless Tobacco: Never Alcohol Use Standard Drinks/Week Comments Yes 3 (1 standard drink = 0.6 oz pure alcoho l) Sex Assigned at Date Recorded Not on file documented as of this encounter Last Filed Vital Signs Vital Sign Reading Time Taken Comments Blood Pressure 107/61 07/22/2016 10:49 AM EDT Pulse 64 07/22/2016 10:49 AM EDT Temperature 37 ??C (98.6 ??F) 07/22/2016 10:49 AM EDT Respiratory Rate - - Oxygen Saturation 100% 07/22/2016 10:49 AM EDT Inhaled Oxygen Concentration - - Weight - - Height - - Body Mass Index - - documented in this encounter Patient Instructions Patient InstructionsEneida Mccall RN - 07/22/2016 10:30 AM EDT Try a cream that contains Urea or ammonium lactate Apply the cream to the callused areas 1-2 times per day Ok to use a pumice stone or emery board over the callused area to keep the callus from accumulating Two name brands that contain Urea are: Kerasol Gold Zaman Diabetic Foot cream One that contains ammonium lactate is: Lac Hydrin documented in this encounter Progress Notes Eneida Mccall RN - 07/22/2016 10:30 AM EDT [facility] Initial Foot Clinic Note ?? Name: Lori Cruz. Age: 26 y.o.. MR#: [id number] ?? Date of Service: 07/22/2016 ?? Chief Complaint: painful calluses ?? HPI: Lori William is a 26 y.o.. year old healthy female who presents today for further evaluation and treatment of painful calluses to her feet. She does not like socks, walks barefoot a lot and started developing calluses to her feet approximately 6-8 months ago. Used liquid callus/corn removal and has tried a pedi egg. Able to get off a lot of callus but the remaining areas were painful. ?? ROS: Denies F/C/N/V/CP/SOB/cough. ?? Patient's medications, allergies, past medical, surgical, social and family histories were reviewed and updated as appropriate. ? Physical Exam: ?? Vitals: Vitals: 07/22/16 1049 BP: 107/61 Pulse: 64 Temp: 37 ??C (98.6 ??F) Gen: WD, alert, oriented. NAD. Derm: Nails are thickened, dystrophic, discolored and elongated. No interdigital macerations. No erythema or ecchymosis noted. HPK to bilateral sub 5th MTH and right medial 1st MPJ. Skin is warm, dry and supple. Vasc: DP/PT pulses palp. CFT < 3 seconds digits 1-5 bilateral. Hair present to digits bilateral. Neuro: Epicritic sensation intact to light touch bilateral. MSK: slight hammer toe deformity of left lesser toes ?? Assessment/Plan: Lori William is a 26 y.o.. year old diabetic female with painful calluses. Callus(es) debrided today, see procedure below. We discussed callus etiology and symptom management as outlined below. She was provided with accommodative D sole inserts to assist with alleviating the pressure to the bony prominences. She will try these and cream that contains urea and follow up PRN. All questions were answered, she verbalized under standing. ?? Procedure: Performed debridement of corn/callus x 3 with sharp 15-blade without incident. Significant indentation to foot from left sub 5th MTH callus with central core area x2. No open areas post debridement. She was given written information as outlined below: Try a cream that contains Urea or ammonium lactate Apply the cream to the callused areas 1-2 times per day Ok to use a pumice stone or emery board over the callused area to keep the callus from accumulating Two name brands that contain Urea are: Kerasol Gold Zaman Diabetic Foot cream One that contains ammonium lactate is: Lac Hydrin documented in this encounter Plan of Treatment Not on filedocumented as of this encounter Visit Diagnoses Diagnosis Callus Corns and callosities documented in this encounter Care Teams Flight Engineer Helicopter Relationship Specialty Start Date End Date Sky Jensen MD PCP - General 12/03/14 07/22/[address] [place] [phone] documented as of this encounter
--- OUTSIDE RECORDS SUMMARY | 2022-08-07 15:16 | XMS_ITS | Encounter Summary ---
:1990 [place] [address] Care Team Providers Name Role Phone Dony uV APRN Primary Care Provider [phone] Reason for Visit Reason Comments Burn Encounter Details Date Type Department Care Team Description 09/29/2012 Emergency Emergency Department Sky Liz MD [facility] [place] [address] [place] [address] [phone] (Wo rk) Social History Tobacco Use Types Packs/Day Years Used Date Smoking Tobacco: Every Day Alcohol Use Standard Drinks/Week Comments No 0 (1 standard drink = 0.6 oz pure alcoho l) Sex Assigned at Date Recorded Not on file documented as of this encounter Last Filed Vital Signs Vital Sign Reading Time Taken Comments Blood Pressure 133/70 09/29/2012 11:17 AM EST Pulse 108 09/29/2012 11:51 AM EST Temperature 37 ??C (98.6 ??F) 09/29/2012 11:17 AM EST Respiratory Rate 16 09/29/2012 11:17 AM EST Oxygen Saturation 100% 09/29/2012 11:51 AM EST Inhaled Oxygen Concentration - - Weight 91.2 kg (201 lb) 09/29/2012 11:17 AM EST Height - - Body Mass Index - - documented in this encounter Discharge Instructions AttachmentsThe following attachments cannot be sent through Care Everywhere. FISH: AFTER YOUR VISIT TO THE EMERGENCY ROOM (YORUBA)documented in this encounter Medications at Time of Discharge Medication Sig Dispensed Refills Start Date End Date ranitidine (ZANTAC) 150 Take 150 mg by mouth 0 12/18/2014 mg tablet 3 times daily. documented as of this encounter ED Notes Sky Davis MD - 09/29/2012 12:26 PM EST Images from the original note were not included. Chief Complaint Patient presents with ??? Burn HPI Comments: Seen with Carrillo Palma MS4. See his note for further details. Patient is a 22 y.o. female presenting with burn. The history is provided by the patient. Burn The incident occurred yesterday. The incident occurred at work. The injury mechanism was a thermal burn. The injury was related to work. The wounds were not self-inflicted. There is an injury to the left elbow, right forearm and right wrist. The pain is mild. It is unlikely that a foreign body is present. There is no possibility that she inhaled smoke. Pertinent negatives include no inability to bearweight. There have been no prior injuries to these areas. Her tetanus status is unknown. She has been behaving normally. There were no sick contacts. Recently, medical care has been given at this facility (Undergoing GI workup). Allergies Allergen Reactions ??? Ibuprofen Other (See Comments) Nose bleeds ??? Lidocaine Itching Review of Systems Physical Exam Nursing note and vitals reviewed. Constitutional: She is oriented to person, place, and time. She appears well- developed and well-nourished. HENT: Head: Normocephalic and atraumatic. Right Ear: External ear normal. Left Ear: External ear normal. Nose: Nose normal. Mouth/Throat: Oropharynx is clear and moist. Eyes: Conjunctivae and EOM are normal. Pupils are equal, round, and reactive to light. Neck: Normal range of motion. Neck supple. Cardiovascular: Normal rate. Pulmonary/Chest: Effort normal and breath sounds normal. No respiratory distress. Abdominal: Soft. She exhibits no distension and no mass. There is no tenderness. Musculoskeletal: Normal range of motion. Neurological: She is alert and oriented to person, place, and time. Skin: Skin is warm and dry. Psychiatric: She has a normal mood and affect. Her behavior is normal. Procedures MDM ED Course: In the Emergency Department, the patient remained afebrile and hemodynamically stable. Impression and plan: The fish appear to be superficial, involving the upper extremities. No evidence of secondary superinfection. She does have involvement of the flexor surface of the right wrist andleft elbow regions. Pain is worse with movement, but the superficial nature of the fish does not mandate more than conservative management at the present time. Recommend cold compress, acetaminophen as needed. Tetanus updated in the emergency department. Followup with primary care physician as needed. Indications for return to the Emergency Department were discussed with the patient and/or guardian, who expressed an understanding. All questions were answered. Sky Davis MD 09/29/12 1231 Carrillo Palma S - 09/29/2012 12:12 PM EST Emergency Medicine - Medical Student Note Patient info: Name: Lori Cruz : 1990 PCP: Dony Vu APRN PCP phone number: [phone] cc: fish to forearms HPI: Ms. Cruz is a 22yo woman who presents with a 1d history of fish to both forearms. 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 Topical vaseline has helped with her pain s omewhat, but she continues to report ongoing pain and tightness of the skin around the fish. This is the first time she has had such injuries to her upper extremity, and had a minor muffler burn to her leg previously. She was at [facility] for a GI procedure this AM and decided to have her injuries evaluated while she was here. She is in a heterosexual relationship and feels safe with her partner. ROS: Cont: [-]fevers [-]chills [-]weight change [-]fatigue HEENT: [-]oral lesions [-]change in hearing or vision CV: [-]chest pain [-]palpitations Resp: [-]SOB [-]TRIPATHI GI: [-]abdominal pain [-]n [-]v [-]c [-]d [+]reflux : [-]burning Heme: [-]night sweats All/Imm: [-] rashes PMHx: heartburn PSHx: tonsillectomy, adenoidectomy, appendectomy FamHx: noncontributory SocHx: Lives in [place], [place] with her parents. 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 Smokes 1/2ppd for 9years. No chew tobacco. Occassional EtOH. Smokes marijuana everyday for her heartburn. Sexually active with her boyfriend (uses Nuva Ring). Meds: no routine outpatient meds Allergies Allergen Reactions ??? Ibuprofen Other (See Comments) Nose bleeds ??? Lidocaine Itching Physical exam: Last value Range last 24 hrs Temperature Temp: 37 ??C (98.6 ??F) Temp: [37 ??C (98.6 ??F)] Heart rate Heart Rate: 108 Heart Rate: [108-122] Blood pressure BP: 133/70 mmHg BP: (133)/(70) Respiratory rate Resp: 16 Resp: [16] SpO2 SpO2: 100 % SpO2: [100 %] General: NAD, A&O HEENT: PERRL, oropharynx benign w/o lesions. Neck: no LAD. Cardiovascular: tachycardic, regular rhythm. S1 and S2, no R/M/Gs. Respiratory: CTAB. No wheezes, rhonchi, or rales. Abd: +BS. Soft, non-tender. Extrem: No cyanosis or edema. DP pulses 2+ and equal bilaterally. Skin: No rashes or ecchymoses. Two 5cm superficial linear fish over L antecubital fossa. 1cm blister on L thenar eminence. 2 linear superficial fish over dorsal aspect of R wrist and forearm. Assessment: The patient is a 22 y.o. woman who presents with superficial fish to both forearms. Given that theyare superficial, will proceed with conservative management. While there is some involvement of skin overlying her L elbow and R wrist, these fish are not deep and are not circumferential and do not require more aggressive management at this time. Plan: 1. Pain Control - acetaminophen (given her ibuprofen allergy), cold compresses 2. Tdap given unknown tetanus immunization status. Dispo: To home by personal transport. Understands wound-care instructions. 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 documented in this encounter Miscellaneous Notes Discharge Summary - Provider, Scanning - 09/30/2012 9:27 AM EST Miscellaneous - Provider, Scanning - 09/29/2012 8:46 PM EST ED Triage - Milka Santacruz RN - 09/29/2012 11:16 AM EST Fish on both forearms from cooking yesterday documented in this encounter Plan of Treatment Not on filedocumented as of this encounter Visit Diagnoses Diagnosis Burn Burn of unspecified site, unspecified de gree documented in this encounter Care Teams Home Health Aid Relationship Specialty Start Date End Date Dony Vu, FLOORING SALES MANAGER PCP - General 09/29/12 12/02/14 [address] [place] [address] documented as of this encounter
--- OUTSIDE RECORDS SUMMARY | 2022-08-07 15:16 | XMS_ITS | Encounter Summary ---
:1990 Author Organization [facility] Address [place] [id number] Care Team Providers Name Role Phone Sky Jensen MD Primary Care Provider Reason for Visit Reason Comments Hirsutism New Patient Encounter Details Date Type Department Care Team Description 12/18/2014 Office Visit Endocrinology at [facility] Riya Martin Hyperandrogenism [facility] [place] [address] [facility] [phone] ENDO[address]Y DE PT. [place] [id number] (Wo rk) Social History Tobacco Use Types Packs/Day Years Used Date Smoking Tobacco: Every Day Cigarettes 1 4 Smokeless Tobacco: Never Alcohol Use Standard Drinks/Week Comments No 0 (1 standard drink = 0.6 oz pure alcoho l) Sex Assigned at Date Recorded Not on file documented as of this encounter Last Filed Vital Signs Vital Sign Reading Time Taken Comments Blood Pressure 116/62 12/18/2014 1:12 PM EDT Pulse 77 12/18/2014 1:12 PM EDT Temperature - - Respiratory Rate 20 12/18/2014 1:12 PM EDT Oxygen Saturation - - Inhaled Oxygen Concentration - - Weight 71.7 kg (158 lb) 12/18/2014 1:12 PM EDT Height 175.3 cm (5' 9) 12/18/2014 1:12 PM EDT Body Mass Index 23.33 12/18/2014 1:12 PM EDT documented in this encounter Progress Notes Riya Zarate MD - 12/18/2014 4:18 PM EDT I have seen the patient and reviewed Dr. Elizondo's above history and I agree with the details aswritten. The assessment and plan were formulated in discussion with me and I agree with them as documented. Pt has mildly elevated DHEAS associated with hirsutism but having regular periods and no problem with but frequent miscarriage (G4Ab4) for unplanned , already had bilat tubal ligation. Will cehck labs to r/o heterozygous or mild late-onset CAH or mild form of 11-beta HSD which may affect only adrenal DHEAS & start treatment using spironolactone 50 mg bid as planned. Thanks for the consult. Riya Zarate MD Maldonado Elizondo MD - 12/17/2014 9:47 AM EDT Endocrinology Consult Note Reason for Visit: Consult requested by Sky Jensen MD for evaluation of hyperandrogenism HPI: The patient is a 24-y/o lady with a PMH significant for multiple miscarriages who presents in consultation for evaluation of hyperandrogenism. She reports difficulty with hair growth over the pastmonth. She has longstanding upper lip hair, though her chest, abdomen, and the ricardo area. She has not had troublesome hair growth elsewhere. She has not had any issues with acne. She has regular menstrual cycles, as they have always been. She reports four miscarriages for unknown reasons. She has intentionally lost about thirty pounds over two months through intense exercise. She reports having had a seizure several months ago for an unknown reason. When she was on the Nuvaring, her hirsutism got worse. 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 ROS: - 10-point ROS performed and negative, except as above PE: - Vitals: 116/62, 77, BMI 23.3 - Gen: Awake and alert, NAD - HEENT: PERRL, moist MM - Neck: No thyromegaly - CV: RRR, no M/C/R - Pulm: CTAB - Abd: +BS, NTTP - Ext: No edema - Derm: No rashes, + hair over abdomen, no acne, no acanthosis nigricans - Neuro: 2+ reflexes, no tremor Labs (11/22/2014): - DHEA-S 471 - Total testosterone <20.0 - Prolactin 7.1 - FSH 9.5 - LH 13.0 - TSH 2.05 Imaging (08/07/2013): - Transvaginal U/S: Single right-sided ovarian cyst Assessment: The patient is a 24-y/o lady with a PMH significant for multiple miscarriages who presents in consultation for evaluation of hyperandrogenism. She has hirsutism from adrenal hyperandrogenism. While congenital adrenal hyperplasia is possible, her presentation makes it unlikely. She likely has mild underactivity of her adrenal enzymes, leading to elevated adrenal androgens. Treatment for this has two main options: lowering the levels and blocking the effects. While the androgen levels may be able to be lowered by directly suppressing adrenal androgen production with estrogen therapy, blocking the effects of the androgens with spironolactone will probably be more effective. Plan: - Check a mid-follicular phase 8AM 17-OH progesterone level to evaluate for CAH - Start spironolactone 50 BID, checking a potassium level two weeks after starting therapy - Patient to continue plucking hairs or use other therapy (waxing or electrolysis) after three months of treatment - F/U in 6 months, if no or minimal improvement will consider increasing spironolactone to 100 mg BID or adding an OCP like Marizol Patient seen and discussed with the attending Dr. Tessa Elizondo M.D. Fellow, Endocrinology Resident, Leadership Preventive Medicine 12/18/2014 documented in this encounter Plan of Treatment Not on filedocumented as of this encounter Results (ABNORMAL) 17-Hydroxyprogesterone (12/19/2014) [facility] Time Signature 17-Hydroxyprog 93 (External Lab) Specimen (Source) Anatomical Location Collection Method / Collectio n Time Received Time / Laterality Volume Blood specimen 12/19/2014 (specimen) Riya Zarate MD CHEMISTRY ORDERABLES documented in this encounter Visit Diagnoses Diagnosis Hyperandrogenism Other ovarian hyperfunction documented in this encounter Care Teams Review Consultant Relationship Specialty Start Date End Date Sky Jensen MD PCP - General 12/03/14 07/22/[address] [place] [id number] documented as of this encounter
--- OUTSIDE RECORDS SUMMARY | 2022-08-07 15:16 | XMS_ITS | Encounter Summary ---
:1990 Author Organization [facility] [place] [address] Care Team Providers Name Role Phone Dony Vu APRN Primary Care Provider [phone] Reason for Visit Reason Onset Date Comments Other 09/21/2012 PRE-MOTILITY NOTE Encounter Details Date Type Department Care Team Description 09/21/2012 Telephone Gastroenterology at [facility] Ana Jamison Other (PRE-MOTILITY [facility] Karla [place]il NOTE) [place] [address] Social History Tobacco Use Types Packs/Day Years Used Date Smoking Tobacco: Every Day Alcohol Use Standard Drinks/Week Comments No 0 (1 standard drink = 0.6 oz pure alcoho l) Sex Assigned at Date Recorded Not on file documented as of this encounter Miscellaneous Notes Telephone Encounter - Ana Jamison - 09/21/2012 1:03 PM EST Pt called today re anxiolytic prior to OEM in place of lidocaine and benzocaine, to which she is allergic. Pt states [facility] told her [facility] should provide anxiolytic. I called [facility], spoke isa Khan, nurse, and told her we don't provide this, that [facility] needs to. Told her what has worked in the past for other pts. She will talk to Dr. James and let me know what they decide. I called pt to let her know I called [facility] and that they have phone number of pharmacy she uses. -bcj documented in this encounter Plan of Treatment Not on filedocumented as of this encounter Visit Diagnoses Not on filedocumented in this encounter Care Teams Chemist Instrumentation Relationship Specialty Start Date End Date Dony Vu, SHAVON PCP - General 09/29/12 12/02/14 [address] [place] [address] documented as of this encounter
--- OUTSIDE RECORDS SUMMARY | 2022-08-07 15:16 | XMS_ITS | Clinical Summary ---
:1990 Author Organization [facility] [place] [address] Care Team Providers Name Role Phone Cornelia Hernandez Primary Care Provider Allergies Active Allergy Reactions Severity Noted Date Comments Fruit Extracts Anaphylaxis High 07/22/2016 Chest tightne ss, blotchiness, an d then stops breathin g Per patient ( kiwi fruit) cant touch them or eat them Ibuprofen Other (See Comments) 08/01/2012 Nose bl eeds Lidocaine Itching 08/01/2012 Nsaids (Non-Steroidal Other (See Comments) 02/16/2014 Nosebleeds Anti-Inflammatory Drug) Medications Medication Sig Dispensed Refills Start Date End Date Status PROAIR HFA 90 as needed. 0 09/12/2014 Acti ve mcg/actuation HFA Aerosol Inhaler triamcinolone 0 09/12/2014 Activ e (KENALOG) 0.1 % Ointment EPINEPHrine 0.3 mg/0.3 Inject 0.3 mg into 0 Active mL Auto-Injector the muscle once. fluorouraciL (EFUDEX) Apply 1 gram thin 40 g 0 11/07/2020 Active 5 % CreamIndications: layer to affected Plantar wart, Left sites once daily. foot pain Cover with bandaid. clindamycin Apply topically 2 30 g 0 04/24/2021 Active (CLINDAGEL) 1 % times daily. GelIndications: Pitted keratolysis Active Problems Problem Noted Date Callus 07/22/2016 Neurocardiogenic syncope 05/23/2015 Overview: ?? Echocardiogram 05/23/2015: Structurally normal heart ?? Head-up Tilt test 10/10/2015: typical Bezold-Jarisch reflex to tilt + dobutamine (HR dropped to 60s, SBP droppex to 70s). Atypical presyncope symptoms. ?? Ziopatch 10/10/2015: had a typical syn cope episode. No arrhythmias during syncope, HR 80s-110s during syncope. No significant arrhythmias noted during study. ?? Exercise stress test, 11/01/2015: Diag nostic test, achieved stage 5 on Ayden protocol, 15 METs, no arrhythmias or signs of ischemia, no symptoms Hyperandrogenism 12/18/2014 Pelvic pain syndrome 02/16/2014 Immunizations Name Administration Dates Next Due Tdap Vaccine 09/29/2012 Family History Medical History Relation Comments Syncope Maternal Aunt Coronary Artery Disease Maternal Grandmother Heart Failure Maternal Grandmother Syncope Maternal Grandmother Seizure Disorder Sister half-sister Syncope Sister half-sister Sudden Neg Hx Relation Status Comments Maternal Aunt Maternal Grandmother Sister Social History Tobacco Use Types Packs/Day Years Used Date Smoking Tobacco: Former Cigarettes 1 5 Smokeless Tobacco: Never Alcohol Use Standard Drinks/Week Comments Yes 3 (1 standard drink = 0.6 oz pure alcoho l) Sex Assigned at Date Recorded Not on file Last Filed Vital Signs Vital Sign Reading Time Taken Comments Blood Pressure 107/61 07/22/2016 10:49 AM EDT Pulse 64 07/22/2016 10:49 AM EDT Temperature 37 ??C (98.6 ??F) 07/22/2016 10:49 AM EDT Respiratory Rate 16 01/08/2016 11:00 AM EDT Oxygen Saturation 100% 07/22/2016 10:49 AM EDT Inhaled Oxygen Concentration - - Weight 77.1 kg (170 lb) 01/08/2016 9:15 AM EDT Height 175.3 cm (5' 9) 10/10/2015 11:19 AM EST Body Mass Index 25.1 10/10/2015 11:19 AM EST Plan of Treatment Health Maintenance Due Date Last Done Comments Hepatitis B vaccine (0-59 yrs) (1 of 3 - 3-dose 1990 series) Covid-19 Vaccine (#1) 1990 Pneumococcal Vaccine: At-Risk 5-64yrs (1 - PCV) 1998 HIV screen 2010 Hepatitis C Screening 2010 HPV test 2022 PAP Smear 2022 Influenza (Flu) vaccine (1 of 1 - Influenza standard 05/21/2022 series) Tetanus vaccine 09/29/2022 09/29/2012 Tdap adult Completed 09/29/2012 Insurance Payer Benefit Plan / Subscriber ID Effective Dates Phone Addre ss Type [place] [id number] 2015-Juany [phone] [address] [facility]IMARY CARE [address] [facility] [id number] Care Teams Armature And Rotor Winder Relationship Specialty Start Date End Date Cornelia Hernandez PA PCP - General Family Medicine 07/23/20 [address] [place], [place] [address]
--- OUTSIDE RECORDS SUMMARY | 2022-08-07 15:16 | XMS_ITS | Encounter Summary ---
:1990 Author Organization [facility] [address] Care Team Providers Name Role Phone Héctor Eid MD Primary Care Provider Encounter Details Date Type Department Care Team Description 08/05/2012 Office Visit [facility]ology at [facility] Alfonso Rodarte, GERD [facility] Karla gil MD ([place] [address] [facility] reflux disease) [phone] CENTER (Primary Dx) [place] [address] Social History Tobacco Use Types Packs/Day Years Used Date Smoking Tobacco: Every Day Alcohol Use Standard Drinks/Week Comments No 0 (1 standard drink = 0.6 oz pure alcoho l) Sex Assigned at Date Recorded Not on file documented as of this encounter Progress Notes Alfonso Rodarte MD - 08/15/2012 7:47 PM EST [id number] WIRELESS pH CAPSULE STUDY AFTER UPPER ENDOSCOPY Lori Cruz Female, 22 yrs, 1990 PCP: HÉCTOR EID STUDY DATES: 08/01/12 to 08/03/12 INTERPRETATION DATE: 08/14/12 PROVIDER: Alfonso Rodarte, [place] ([id number]) INDICATION Reflux symptoms. NOTE: This study was performed off of medications used to treat acid reflux. METHODS After upper endoscopy where landmarks were visualized and measured, in a supervised setting, and after informed consent, a Garcia pH telemetry capsule was deployed orally and attached to the esophageal wall at 5 cm above the upper border of the LES. No complications were noted during this procedure. FINDINGS Visual inspection of the study shows fluctuations in pH values throughout the study consistent with a technically adequate study. DAY ONE Total Number of Reflux Episodes: 115 Upright Position: 114 Supine Position: 1 Reflux Episodes Longer than Five Minutes: 8 Upright: 8 Supine: 0 Duration of Longest Episode: 22 minutes, upright position Total Distal Esophageal Acid Exposure Time: 150 minutes. Percent of Total Recording Time: 10.7% Percent of Upright Recording Time: 18% Percent of Supine Recording Time: 0% DAY TWO Total Number of Reflux Episodes: 122 Upright Position: 121 Supine Position: 1 Reflux Episodes Longer than Five Minutes: 2 Upright: 1 Supine: 1 Duration of Longest Episode: 13 minutes, upright position Total Distal Esophageal Acid Exposure Time: 88 minutes. Percent of Total Recording Time: 6.8% Percent of Upright Recording Time: 7.9% Percent of Supine Recording Time: 2.3% Adous-Fbzwb-Rirp (Total) Fraction of Time with pH Less Than 4%: 8.8% Calculated DeMeester Score (normal values are up to 14.72) Day One Calculated DeMeester Score: 34.7 Day Two Calculated DeMeester Score: 25 Gamlj-Lrwsd-Egon DeMeester Score (Total): 29.9 Day One Symptoms Association Probability (SAP) for Heartburn: 100% Regurgitation: 100% Chest pain: 77% Other: 0% Day Two SAP for Heartburn: 95% Regurgitation: 100% Chest pain: 65% Other: 0% Gzvid-Qyyni-Ophh SAP for Heartburn: 99% Regurgitation: 100% Chest pain: 85% Other: 0% IMPRESSION During this recording period, while the patient was not on medications for acid reflux, there was evidence of pathologic acid reflux into the distal esophagus on both day one and day two. Symptom association for heartburn and regurgitation was elevated and statistically significant. NORMAL VALUES FOR WIRELESS pH CAPSULE STUDY 1. Total number of reflux episodes = less than 50. 2. Number of episodes longer than 5 minutes = less than 3. 3. Acid exposure time Total = less than 5.3% Upright = less than 6.3% Supine = less than 1.2%. ADDENDUM SAP expresses the likelihood that a specific symptom, i.e., heartburn, regurgitation, chest pain, isassociated with acid reflux. By convention, SAP values greater than 95% are positive. Alfonso Rodarte MD, PhD support architect, [facility] of Medicine Section of Gastroenterology [place] [address] V: [phone] F: [phone] AMANUEL/jose EC/CC: PCP Maxi James DO [facility] Surgery [address] [place] [address] [place] [address] documented in this encounter Plan of Treatment Not on filedocumented as of this encounter Visit Diagnoses Diagnosis GERD (gastroesophageal reflux disease) - Primary Esophageal reflux documented in this encounter Care Teams Quill Machine Tender Relationship Specialty Start Date End Date Héctor Eid MD PCP - General 08/01/12 09/28/12 [place] [address] documented as of this encounter
--- OUTSIDE RECORDS SUMMARY | 2022-08-07 15:16 | XMS_ITS | Encounter Summary ---
:1990 [place] [address] Care Team Providers Name Role Phone Sky Jensen MD Primary Care Provider Encounter Details Date Type Department Care Team Description 05/23/2015 Hospital Encounter Non-Invasive CARDIO, ECHO SIXTY MIN APPT None Syncope, unspecified Cardiology Lab Thang Ames MD [facility] [place] [address] [place] [id number] Social History Tobacco Use Types Packs/Day Years [...] (KENALOG) 0.1 0 09/12/20 14 % Ointment dextroamphetamine-amphetami Take 10 mg by 0 10/10/2015 ne (ADDERALL) 10 mg tablet mouth daily. documented as of this encounter Plan of Treatment Not on filedocumented as of this encounter Procedures Procedure Name Priority Date/Time Associated Comments Diagnosis ECHOCARDIOGRAM Routine 05/23/2015 4:16 Syncope, Results fo r this TRANSTHORACIC(LEB) PM EDT unspecified procedure are in the results section. documented in this encounter Results Echocardiogram Transthoracic(Leb) (05/23/2015 4:16 PM EDT) athologist Signature EF 63 HEARTLAB SYSTEM Anatomical Region Laterality Modality Other Specimen (Source) Anatomical Location Collection Method / Collectio n Time Received Time / Laterality Volume 05/23/2015 Narrative 05/23/2015 4:36 PM EDT Procedure: ?Transthoracic Echocardiogram Patient: ?HAYWARD LIBERTY N ? (Age): 1990(25y) Med Rec#: ? [id number] ?Sex: ?F ? [place] Loc: ? [facility] [place] ?Ht / Wt: ??175.3(cm)/68(kg Pt. Loc: ?Echo Lab ?BSA: ?1.83 Study Date: ?? 05/23/2015 ?Pt. Type: Outpatient Tape: ? Referring: Thang Isidro Reading: Jasson Pascal ([id number]) Airplane Navigator: Ashlie Valdez Diagnosis: CPT Codes: *Echo Full (86873) *Spectral Doppler (17701) *Color Doppler (49346) Indication: ?? Syncope Rhythm: ? Sinus BP: [...] E-wave Vmax ?1.1 ?m/sec ? MV deceleration miuf060 ?msec ? MV A-wave Vmax ?0.4 ?m/sec ? MV E:A ratio ?2.5 ?ratio ? LV E:e' septal ratio0.2 ?ratio ? Tricuspid Valve ?Value ?Units (Range) ? TR Vmax ? 2.1 ?m/sec ? TR peak gradient ?17.1 ? mmHg ? RAP ? 3 ?mmHg ? RVSP ?20 ? mmHg ? Pulmonic Valve/Qp:Qs ?Value ?Units (Range) ? CO end-diastolic Vma0.7 ?m/sec ? PA end-diastolic pre5 ?mmHg ? Measurement Trending Name ? 05/23/2015 ? LV EDV BP ?9 6.6411 LVIDd (2D) ? 4. 18574577 LV ESV BP ?3 6.1077 LVIDs (2D) ? 2. 5564404 LA ESV BP (A/L) ?44.5 252 Wall Motion: Segment Name ?Rest ? Base-Anteroseptal ?? Normal ? Base-Anterior ? Normal ? Base-Anterolateral ??Normal ? Base-Posterolateral Normal ? Base-Inferior ? Normal ? Base-Inferoseptal ?? Normal ? Mid-Anteroseptal ?Normal ? Mid-Anterior ?Normal ? Mid-Anterolateral ?? Normal ? Mid-Posterolateral ??Normal ? Mid-Inferior ?Normal ? Mid-Inferoseptal ?Normal ? Buckhorn-Septal ? Normal ? Buckhorn-Anterior ? Normal ? Buckhorn-Lateral ?Normal ? Buckhorn-Inferior ? Normal ? Buckhorn-Tip ?Normal ? This report has been electronically sign ed by: _ Jasson Pascal MD ? 05/23/2015 16:35:52 Images reviewed and interpretation verif ied [facility] Cardiac Ultrasound Laboratory Procedure Note Jasson Pascal MD - 05/23/2015For matting of this note might be different from the original. Procedure: Transthoracic Echocardiogram Patient: MAINOR Mace DOB(Age): [birth year]y) Med Rec#: [id number] Sex: F [place] Loc: [facility] [place] Ht / Wt: 175.3(cm)/68(kg Pt. Loc: Echo Lab BSA: 1.83 Study Date: 05/23/2015 Pt. Type: Outpati ent Tape: Referring: Thang Isidro Reading: Jasson Pascal ([id number]) Airplane Navigator: Ashlie Valdez Diagnosis: CPT Codes: *Echo Full (66110) *Spectral Doppler (64176) *Color Doppler (91989) Indication: Syncope Rhythm: Sinus BP: 112/71 SUMMARY: [...] MV E-wave Vmax 1.1 m/sec MV deceleration onje642 msec MV A-wave Vmax 0.4 m/sec MV E:A ratio 2.5 ratio LV E:e' septal ratio0.2 ratio Tricuspid Valve Value Units (Range) TR Vmax 2.1 m/sec TR peak gradient 17.1 mmHg RAP 3 mmHg RVSP 20 mmHg Pulmonic Valve/Qp:Qs Value Units (Range) CO end-diastolic Vma0.7 m/sec PA end-diastolic pre5 mmHg Measurement Trending Name 05/23/2015 LV EDV BP 96.6411 LVIDd (2D) 4.20640437 LV ESV BP 36.1077 LVIDs (2D) 2.4755050 LA ESV BP (A/L) 44.5252 Wall Motion: Segment Name Rest Base-Anteroseptal Normal Base-Anterior Normal Base-Anterolateral Normal Base-Posterolateral Normal Base-Inferior Normal Base-Inferoseptal Normal Mid-Anteroseptal Normal Mid-Anterior Normal Mid-Anterolateral Normal Mid-Posterolateral Normal Mid-Inferior Normal Mid-Inferoseptal Normal Buckhorn-Septal Normal Buckhorn-Anterior Normal Buckhorn-Lateral Normal Buckhorn-Inferior Normal Buckhorn-Tip Normal This report has been electronically sign ed by: _ Jasson Pascal MD 05/23/2015 16:35: 52 Images reviewed and interpretation jaleesa mustafa [facility] Cardiac Ultrasound Laboratory Thang Isidro MD ECHO ORDERABLES documented in this encounter Visit Diagnoses Diagnosis Syncope, unspecified documented in this encounter Care Teams Family Reunification Specialist Relationship Specialty Start Date End Date Sky Jensen MD PCP - General 12/03/14 07/22/[address] [place] [address] documented as of this encounter
--- OUTSIDE RECORDS SUMMARY | 2022-08-07 15:16 | XMS_ITS | Encounter Summary ---
:1990 Author Organization [facility] [place] [address] Care Team Providers Name Role Phone Jh Guillaume MD Primary Care Provider Encounter Details Date Type Department Care Team Description 08/01/2012 Procedure visit Gastroenterology [place] [facility] [place] EVANS Canceled ([facility] Celeste Quiroz, RN Cancelled) [place] [address] Social History Tobacco Use Types Packs/Day Years Used Date Smoking Tobacco: Every Day Alcohol Use Standard Drinks/Week Comments No 0 (1 standard drink = 0.6 oz pure alcoho l) Sex Assigned at Date Recorded Not on file documented as of this encounter Progress Notes Celeste Fisher, [place]LIN - 08/01/2012 11:40 AM EST Lori is allergic to lidocaine--gets itching, etc. OEM attempted without topical anesthetic, Was not tolerated. Arrangements made for her to have EGD with [facility] OFF meds at 1230 today. 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 documented in this encounter Miscellaneous Notes Miscellaneous - Nerissa Horton - 08/03/2012 2:28 PM EST documented in this encounter Plan of Treatment Not on filedocumented as of this encounter Visit Diagnoses Not on filedocumented in this encounter Care Teams Sales Marketing Manager Relationship Specialty Start Date End Date Jh Guillaume MD PCP - General 08/01/12 09/28/12 [address] [place] [address] documented as of this encounter
--- OUTSIDE RECORDS SUMMARY | 2022-08-07 15:16 | XMS_ITS | Encounter Summary ---
:1990 Author Organization [facility] [place] [address] Care Team Providers Name Role Phone Cornelia Hernandez Primary Care Provider Reason for Visit Reason Comments Plantar Warts Encounter Details Date Type Department Care Team Description 11/07/2020 Office Visit Podiatry at [facility] [place] Brook Michelle DPM Plantar wart; [facility] Karla gil [facility] [place] [address] [place] [address] [phone] (Wo rk) Social History Tobacco Use Types Packs/Day Years Used Date Smoking Tobacco: Former Cigarettes 1 5 Smokeless Tobacco: Never Alcohol Use Standard Drinks/Week Comments Yes 3 (1 standard drink = 0.6 oz pure alcoho l) Sex Assigned at Date Recorded Not on file documented as of this encounter Progress Notes Brook Michelle DPM - 11/07/2020 2:30 PM EST Out[facility] Note Name: Lori Cruz Age:30 y.o. MR#: [id number] Date of Service: 11/07/2020 SUBJECTIVE: Lori Cruz is a 30 y.o. female who returns to clinic today for reevaluation of plantar warts. Right foot warts have resolved with salicylic acid pad, however left foot wart continues to persist. Patient has suffered with warts for 5+ years and has previously undergone cryotherapy, compound creams, salicylic acid, topical medication etc. without improvement. Has previously seen dermatology. No new lesions or sites of involvement reported. No other pedal complaints today. No constitutional symptoms reported. Allergies Allergen Reactions [...] to Visit Medication Sig Dispense Refill ??? EPINEPHrine 0.3 mg/0.3 mL Auto-Injector Inject 0.3 mg into the muscle once. ??? PROAIR HFA 90 mcg/actuation HFA Aerosol Inhaler as needed. 0 ??? triamcinolone (KENALOG) 0.1 % Ointment 0 No current facility-administered medications on file prior to visit. ROS: SKIN: +warts The remainder of 10 ROS were reviewed and negative. OBJECTIVE: GEN: Alert, awake. Seen sitting up comfortably. DERM: Previous wart right plantar foot fifth metatarsal head resolved with skin lines noted. Left plantar fifth metatarsal head 0.5 x 0.5 cm lesion with absent skin lines. No satellite lesions appreciated. No signs of infection. No drainage. No erythema. No increased warmth. VASC: Pedal pulses palpable. No rest pain. No color changes. NEURO: Sensation intact to light touch no deficits. MSK: Minimal tenderness on exam left foot plantar wart site. No other sites palpable pain. Active range of motion noted of bilateral lower extremities. No significant wasting or weakness. + Mild nontender tailor bunion deformity ASSESSMENT: Painful chronic plantar warts--right resolved, left improving slowly PLAN: Patient reevaluated. Prescribed Efudex 5% cream. Proper use reviewed. Discussed blister reaction mayoccur. Discussed if symptoms continue to persist can consider cauterization and surgical excision, however this can result in painful plantar scar and I would only advise this is the last resort. No guarantees given or implied. Continued prevention. Answered all questions. Patient verbalized understanding of all instructions. FOLLOW UP: As scheduled or sooner if any concerns or changes arise Brook Michelle DPM It Infrastructure Specialist, [facility] documented in this encounter Plan of Treatment Not on filedocumented as of this encounter Visit Diagnoses Diagnosis Plantar wart Left foot pain Pain in limb documented in this encounter Care Teams Anesthesiologist Physician Relationship Specialty Start Date End Date Cornelia Hernandez PA PCP - General Family Medicine 07/23/[address] [place] [id number] documented as of this encounter
--- OUTSIDE RECORDS SUMMARY | 2022-08-07 15:16 | XMS_ITS | Encounter Summary ---
:1990 Author Organization [facility] [place] [address] Care Team Providers Name Role Phone Cornelia Hernandez Primary Care Provider Encounter Details Date Type Department Care Team Description 07/25/2020 [facility] [place] [address] Social History Tobacco Use Types Packs/Day Years Used Date Smoking Tobacco: Every Day Cigarettes 1 5 Smokeless Tobacco: Never Alcohol Use Standard Drinks/Week Comments Yes 3 (1 standard drink = 0.6 oz pure alcoho l) Sex Assigned at Date Recorded Not on file documented as of this encounter Medications at Time of Discharge Medication Sig Dispensed Refills Start Date End Date EPINEPHrine 0.3 mg/0.3 mL Inject 0.3 mg into 0 Auto-Injector the muscle once. PROAIR HFA 90 mcg/actuation as needed. 0 09/12/20 14 HFA Aerosol Inhaler triamcinolone (KENALOG) 0.1 0 09/12/20 14 % Ointment documented as of this encounter Plan of Treatment Not on filedocumented as of this encounter Procedures Procedure Name Priority Date/Time Associated Diagnosis Comme nts COVID-19 PCR Routine 07/25/2020 10:26 AM Results for this EST procedure are i n the results section . documented in this encounter Results COVID-19 PCR (07/25/2020 10:26 AM EST) [facility] Method Time Signature SARS-CoV-2 Not Detected Not Detected NISA TRAMMELL [facility] Comment: This result should be interpreted in com bination with the clinical observations, patient history and epidem iological information in making a final diagnosis. For testing of asymptomatic i ndividuals, assay performance characteristics and clinical utility hav e not been evaluated. Testing for SARS-CoV-2 (Severe acute respiratory syn drome coronavirus 2, formerly known as 2019 novel coronavirus or 2019-nCoV) to aid in the diagnosis of COVID-19 is performed using the [employer] RealTime SARS -CoV-2 Assay as authorized by the FDA Emergency Use Authorization (EUA). This EUA assay is intended for In-vitro Diagnostic (IVD) use with respiratory sp ecimens such as nasopharyngeal swabs collected from individuals during the ac iman phase of infection. This assay is performed based on the instructions for use provided by [employer] and additional guidance provided by CDC and FDA. Testing is performed in the [facility] Laboratory within the Department of Pathology and Laboratory Medicine at [facility], certified under the Clinical Laboratory Improvement Amendments of 1988 (CLIA), 42 U.S.C. 263a, to perform high complexi ty tests. Assay performance has been verified according to clinical laborator y regulatory requirements for use with specimens collected from individuals jalen pected of COVID-19. Test results are provided above. A result of ? Not Detected? indicates that the viral RNA target is not present above the limit of detect ion, but does not preclude SARS-CoV-2 infection. False negative results may oc cur if a specimen is improperly collected, transported or handled; if am plification inhibitors are present; or if inadequate numbers of viral particles are present in the specimen. When a diagnostic test is negative, the possibi lity of a false negative result should be considered in the context of a patien t? s recent exposures and the presence of clinical signs and symptoms consisten t with COVID-19. A result of ? Detected? indicates that RNA from SARS-CoV-2 was d etected and the patient is infected. As required or requested by public health a uthorities, positive specimens may be sent for additional testing. Positive an d negative predictive values for this test are highly dependent on disease pre valence. A result of ? Invalid? indicates that neither the viral RNA tar gets nor the internal control target was detected. An invalid result suggests the presence of inhibitors. Recollection and re-testing is recommend ed in the case of an invalid result. CDC COVID-19 criteria for testing on hum an specimens and clinical management guidance information are available at th e CDC Coronavirus Disease 2019 (COVID-19) webpage under ? Information for Healthcare Professionals? (https://www.cdc.gov/coronavirus/2019-nc ov/hcp/index.html) Additional information about this and ot her EUA tests can be found in provider and patient fact sheets at the following FDA website: https://www.fda.gov/medical-devices/bjpqjnexkbn-hfhddmk-2951-dziwv-73-randbxnig- qzc-ssbsnzbfpjhcur-wkbesms-devices/oymyc-qjfosdqathc-qvnp SARS-Cov-2 RNA Source BOX INSPECTOR Swab [facility] Specimen (Source) Anatomical Collection Method Collection Time Re ceived Time Location / / Volume Laterality Nasopharyngeal swab Other / Unknown 07/25/2020 10:26 1 09/26/2019 (specimen) AM EST 5:01 AM EST Resulting Agency Comment Spec In Lab Rina Mccain APRN MICROBIOLOGY - GENERAL ORDER [facility] Performing Organization Address City/State/Z[place] [address] documented in this encounter Visit Diagnoses Not on filedocumented in this encounter Care Teams Hvac Technician Relationship Specialty Start Date End Date Cornelia Hernandez PA PCP - General Family Medicine 07/23/[address] [place] [address] documented as of this encounter
--- OUTSIDE RECORDS SUMMARY | 2022-08-07 15:16 | XMS_ITS | Encounter Summary ---
:1990 [place] [address] Care Team Providers Name Role Phone Dony Vu APRN Primary Care Provider [phone] Encounter Details Date Type Department Care Team Description 09/29/2012 Procedure visit [facility] [place] [facility] [place] NATHAN MIX [facility] [place] ([place] [address] reflux disease) [phone] (Primary Dx) Social History Tobacco Use Types Packs/Day Years Used Date Smoking Tobacco: Every Day Alcohol Use Standard Drinks/Week Comments No 0 (1 standard drink = 0.6 oz pure alcoho l) Sex Assigned at Date Recorded Not on file documented as of this encounter Progress Notes Alfonso Rodarte MD - 10/07/2012 3:41 PM EST ESOPHAGEAL MANOMETRY Lori Cruz Female, 22 yrs, 1990 PCP: DONY VU STUDY DATE: 09/29/12 PROVIDER: Alfonso [place] ([id number]) INDICATION JENNA; preoperative evaluation. METHODS Stationary esophageal manometry was performed with the [employer] esophageal motility system utilizing the Polygram software with a 4-channel solid-state motility probe. The transducers are spaced 5 cm apart, and the distal transducer is circumferential, while the proximal three transducers are placed radially above it. Station pull-through technique is utilized to define the lower esophageal sphincter, whose resting tone is determined by the circumferential transducer. Wet swallows are performed in the body of the esophagus with the distal transducer placed 3 and 8 cm above the lower esophageal sphincter zone. The up per esophageal sphincter zone is discerned by station pull-through technique and measured using the circumferential transducer. LES (lower esophageal sphincter) Lower Border: 46 cm Upper Border: 43 cm Mid-Inspiratory Resting Pressure: below normal limits at 3 mmHg using the distal circumferential transducer (normal=13.5-34.5 mmHg). Water Swallows On 6 of 6 swallows the LES relaxed completely to gastric baseline. BODY OF ESOPHAGUS Water Swallows: 12 Peristaltic: 10 Not Transmitted: 2 Simultaneous: 0 Poorly Propagated: 0 Mean Amplitude of Contraction At 3 cm above the mid portion of the LES: normal at 67 mmHg (normal = 30 mmHg and above) At 8 cm above the mid portion the LES: normal at 57 mmHg (normal = 30 mmHg and above) UES (upper esophageal sphincter) Identified at 20.5 cm and extended to 18 cm. UES resting pressure normal at 66 mmHg (normal=30-150 mmHg); relaxation complete. IMPRESSION 1. Hypotensive LES. 2. Normal LES relaxation. 3. Normal UES resting pressure. 4. Normal UES relaxation. 5. Normal motility in the body of the esophagus. Alfonso Rodarte, PhD, MD mulling machine operator, [facility] Section of Gastroenterology and Hepatology [facility] [place] [address] V: [phone] F: [phone] BEL/jose CC/EC: DO Jh Hu MD Celeste Fisher RN - 09/29/2012 9:11 AM EST Esophageal manometry performed without difficulty. She vomited a huge amount of what Appeared to be undigested food. Admitted she forgot not to eat and ate a large amount of pistachios Prior to arrival. Once her stomach was purges, she tolerated the test well. Had taken a total of 4 mgm Diazepam prior to arrival. documented in this encounter Plan of Treatment Not on filedocumented as of this encounter Visit Diagnoses Diagnosis GERD (gastroesophageal reflux disease) - Primary Esophageal reflux documented in this encounter Care Teams Glass Vial Bending Conveyor Feeder Relationship Specialty Start Date End Date Dony Vu, STORE CONSULTANT PCP - General 09/29/12 12/02/14 [address] [place] [address] documented as of this encounter
--- OUTSIDE RECORDS SUMMARY | 2022-08-07 15:16 | XMS_ITS | Encounter Summary ---
:1990 [place] [address] Care Team Providers Name Role Phone Dony Vu APRN Primary Care Provider [phone] Encounter Details Date Type Department Care Team Description 02/16/2014 Office Visit Obstetrics and Tonny Vergara, Pelvic pain syndrome Gynecology at [facility] (Primary Dx) [facility] [address] [place] OBSTETRICS & [phone] GYNECOLOGY [phone] [place] [id number] (Wo rk) Social History Tobacco Use Types Packs/Day Years Used Date Smoking Tobacco: Every Day Cigarettes 1 4 Smokeless Tobacco: Never Alcohol Use Standard Drinks/Week Comments No 0 (1 standard drink = 0.6 oz pure alcoho l) Sex Assigned at Date Recorded Not on file documented as of this encounter Last Filed Vital Signs Vital Sign Reading Time Taken Comments Blood Pressure 120/72 02/16/2014 2:05 PM EDT Pulse 72 02/16/2014 2:05 PM EDT Temperature - - Respiratory Rate - - Oxygen Saturation - - Inhaled Oxygen Concentration - - Weight 82.1 kg (181 lb 1.6 oz) 02/16/2014 2:05 PM EDT Height 175.3 cm (5' 9) 02/16/2014 2:05 PM EDT Body Mass Index 26.74 02/16/2014 2:05 PM EDT documented in this encounter Progress Notes Tonny Vergara MD - 02/16/2014 2:57 PM EDT COPY: SHAVON Croft M.D. Lori Cruz is a 23-year-old para 0 patient who is here because of pelvic cramping and for a second opinion because Dr. Hicks was planning to do a hysterectomy on her. She has had four miscarriages. They have all been within a week or two of her missed period although one was eight or nine weeks requiring a D&C. She then requested a tubal ligation thinking she could always adopt a child but did not want to try and get again. She had a laparoscopic tubal ligation in March by Dr. Hicks. I have the operative note, and he used Falope rings bilaterally although he does not describe the pelvis. I assume the pelvis was normal. Within two months after the tubal ligation she began to have a fair amount of pelvic cramping. She says it feels like convulsions at the top of her vagina. She has had some heartburn with hiatal hernia and then it sounds like she had a Glenn fundoplication. She is well as far as that is concerned now. Menses have always been regular. She was tried on the control pill and presently is on NuvaRing to try and help her with her pelvic cramping. She reports completely normal urinary function. When discussing her bowel function she says she has always had bowel movements only once a week. I reviewed her diet and it is a little bit cursory for most of the day. She starts with either a couple of pieces of toast at 10:00 or maybe has a [employer] at lunchtime. She does not usually have breakfast. At dinnertime she usually has steak and potatoes, maybe a vegetable and some salad. She does not eat very much fruit most of the year. She denies any pain with sexual activity although she says she has a lot of pain with pelvic exams and with placing a tampon. On examination, she is well. Examination of the head and neck, cardiovascular and respiratory systems is normal. Breasts and axillae are normal. Abdomen and groin are negative. Vulva, vagina and cervix are normal. Bimanual examination, however, is fairly tender to motion of the uterus, but the adnexa are unremarkable. She has had a recent CBC which was normal. She has had an ultrasound recently which was also normal. Assessment: Her pain syndrome is quite perplexing. I do not think I would proceed to hysterectomy as a reasonable first option. I would like to see her have more normal bowel function. I reviewed the perfect diet with her. I would be inclined to send her for a GI consult and even a Urology consult before proceeding to any surgical procedure. At the most I would do a laparoscopy and excise the portion of each tube that has the Falope rings on it and see if that improves her pain. Forty-five minutes were spent on the visit and 35 minutes of that were spent in [id number] discussion. documented in this encounter Miscellaneous Notes Miscellaneous - Provider, Yael - 02/23/2014 9:15 PM EDT documented in this encounter Plan of Treatment Not on filedocumented as of this encounter Visit Diagnoses Diagnosis Pelvic pain syndrome - Primary Pelvic congestion syndrome documented in this encounter Care Teams Mill Operator Helper Relationship Specialty Start Date End Date Dony Vu, ACCOUNT MANAGER PCP - General 09/29/12 12/02/14 [address] [place] [address] documented as of this encounter
--- OUTSIDE RECORDS SUMMARY | 2022-08-07 15:16 | XMS_ITS | Encounter Summary ---
:1990 Author Organization [facility] [place] [address] Care Team Providers Name Role Phone Jh Guillaume MD Primary Care Provider Encounter Details Date Type Department Care Team Description 08/01/2012 Surgery [place]ology [place] [facility] [place]tar Zavala, UPPER GI ENDOSCOPY [facility] [place] [address] [facility] [phone] DR GASTROENTEROLOGY [place], [place] [address] (Wo rk) Social History Tobacco Use Types Packs/Day Years Used Date Smoking Tobacco: Every Day Alcohol Use Standard Drinks/Week Comments No 0 (1 standard drink = 0.6 oz pure alcoho l) Sex Assigned at Date Recorded Not on file documented as of this encounter Last Filed Vital Signs Vital Sign Reading Time Taken Comments Blood Pressure 99/64 08/01/2012 12:58 PM EST Pulse 74 08/01/2012 12:58 PM EST Temperature - - Respiratory Rate 18 08/01/2012 12:58 PM EST Oxygen Saturation 96% 08/01/2012 12:58 PM EST Inhaled Oxygen Concentration - - Weight - - Height - - Body Mass Index - - documented in this encounter Discharge Instructions Discharge InstructionsDebora Zaidi RN - 08/01/2012 12:59 PM EST Please call [phone], before 5pm with problems, questions or concerns, after 5pm call the Hospital at [phone] and ask to speak to the Claims Manager neonatal icu coordinator and the stock saw operator will contact that person for you. Discharge instructions reviewed with patient who expresses understanding. You may have received medications before and/or during your procedure which effects your judgement and reaction time. Do not drive, operate machinery, drink alcoholic beverages or make important decisions for 24 hours. Be careful on stairs as you may be unsteady on your feet. You may eat a regular diet as tolerated. Do not smoke if you are alone. IV site: Slight redness or tenderness is normal, you can use a warm compress if you would like. If tenderness and/or redness increase or if foul drainage occurs, please contact your Doctor. AttachmentsThe following attachments cannot be sent through Care Everywhere. UPPER GI ENDOSCOPY: WHAT TO EXPECT AT HOME (KINYARWANDA)documented in this encounter Medications at Time of Discharge Medication Sig Dispensed Refills Start Date End Date ranitidine (ZANTAC) 150 Take 150 mg by mouth 0 12/18/2014 mg tablet 3 times daily. documented as of this encounter H&P Notes Avtar Zavala MD - 08/01/2012 12:16 PM EST Gastroenterology and Hepatology Pre-Procedure History and Physical Exam Procedure: EGD: Indication: bravoe placement/GERD There is no problem list on file for this patient. EXAM: HEENT: Airway examined, oropharynx clear LUNGS: Clear to auscultation HEART: Regular rate and rhythm, normal S1, S2 ABDOMEN: Normal bowel sounds, soft, non tender, non distended, A/P Proceed with the planned endoscopic procedure. Risks and benefits of the procedure explained to the patient. Consent signed. documented in this encounter Miscellaneous Notes Miscellaneous - Provider, Scanning - 08/01/2012 12:19 PM EST documented in this encounter Plan of Treatment Not on filedocumented as of this encounter Procedures Procedure Name Priority Date/Time Associated Diagnosis Comme nts UPPER GI ENDOSCOPY 08/01/2012 12:37 PM gonzalez al cement EST ok'd by ASIM Rocha and MARISEL is are aware SH UPPER GI ENDOSCOPY Routine 08/01/2012 12:36 PM Re sults for this EST procedure are i n the results section. documented in this encounter Results UPPER GI ENDOSCOPY (08/01/2012 12:36 PM EST) Component Value Ref Test Analysis Performed At [facility] gist Range Method Time Signature UPPER GI [facility]ATION ENDOSCOPY Endoscopy Patient Name: Lori Cruz ? Procedure Date: 08/01/2012 12:36 PM ? Date of : 1990 ? Age: 22 ? Order #: [id number] ? Procedure: ? Upper GI endoscopy Indications: ? Heartburn, For Gonzalez placement Providers: ? Avtar Zavala MD, Frances Lazaro , ? FRANKLIN, Chadd Saunders Referring MD: ?Dony Vu MD Medicines: ? Midazolam 4 mg IV, Fentanyl 200 ? micrograms IV, Diphenhydramin e 50 mg ? IV Complications: ? No immediate complications. Procedure: ? Pre-Anesthesia Assessment: ? - ASA Grade Assessment: I - A normal, ? healthy patient. ? The procedure, indications, b enefits, ? risks and alternatives were e xplained ? to the patient. Specifically ? discussed were potential ? complications including, but not ? limited to, bleeding, perfora tion, ? infection, missing a cancer, and ? adverse medication reactions. The New ? Lease 2011 was introduced thr ough the ? and advanced to the. The charity ent ? tolerated the procedure well. The ? upper GI endoscopy was accomp lished ? without difficulty. The patie nt ? tolerated the procedure well. ? Findings: ? The examined esophagus was normal. The Z-line was ? regular and was found 40 cm from the incisors. A ? small hiatus hernia was present. The stomach was ? normal. The examined duodenum was normal. ? Upon completion of the exam the Gonzalez capsule was ? placed by nurse Fisher and second look endoscopy ? confirmed good postion in the esophagus ? Impression: ?- Normal esophagus. ? - Z-line regular, 40 cm from the ? incisors. ? - Hiatus hernia. ? - Normal stomach. ? - Normal examined duodenum. Recommendation: ?Await Gonzalez results ? Avtar Zavala MD 08/01/2012 12:50 PM This report has been signed electronically. Number of Addenda: 0 Note Initiated On: 08/01/2012 12:36 PM Specimen (Source) Anatomical Collection Method Collection Time Re ceived Time Location / / Volume Laterality 08/01/2012 12:36 PM EST Dony Vu APRN GENERAL SURGICAL ORDERABLES Performing Organization Address City/State/ZIP Code Phon e Number [place] documented in this encounter Visit Diagnoses Not on filedocumented in this encounter Administered Medications Inactive Administered Medications - up to 3 most recent administrations Medication Order MAR Action Action Date Dose Rate Site diphenhydrAMINE (BENADRYL) Given 08/01/2012 12:42 PM EST 25 mg injection ONCE PRN, Starting on Wed08/01/12 at 1239, Until Wed08/01/12 at 1736, Itching, Intra-Operative (Intra-Procedure), Routine Given 08/01/2012 12:39 PM EST 25 mg fentaNYL 50mcg/mL injection Given 08/01/2012 12:45 PM EST 50 mcg ONCE PRN, Starting on Wed08/01/12 at 1239, Until Wed08/01/12 at 1736, Pain, Intra-Operative (Intra-Procedure), Routine Given 08/01/2012 12:42 PM EST 50 mcg Given 08/01/2012 12:39 PM EST 100 mcg midazolam (VERSED) injection Given 08/01/2012 12:46 PM EST 1 mg ONCE PRN, Starting on Wed08/01/12 at 1240, Until Wed08/01/12 at 1736, Sleep, Intra-Operative (Intra-Procedure), Routine Given 08/01/2012 12:42 PM EST 1 mg Given 08/01/2012 12:40 PM EST 2 mg sodium chloride 0.9% infusion New Bag 08/01/2012 11:30 AM EST 50 mL/hr 50 mL/hr 50 mL/hr, Intravenous, CONTINUOUS, Starting on Wed08/01/12 at 1130, Until Wed08/01/12 at 1736, Endoscopy (Day of Procedure) documented in this encounter Active and Recently Administered Medications Times are shown in EST. Continuous Medication Order 07/30/2012 07/31/2012 08/01/2012 sodium chloride 0.9% infusion (CANCELED) 1130 (New Bag - Provider: Debora Zaidi, RN) 50 mL/hr, at 50 mL/hr, Intravenous, CONT INUOUS, Starting Wed08/01/12 at 1130, Until Wed08/01/12 at 1736, Endo (Day of Procedure) PRN Medication Order 07/30/2012 07/31/2012 08/01/2012 diphenhydrAMINE (BENADRYL) injection (CANCELED) 1239 (Given - Provider: Frances Lazaro RN - Comment: first dose of moderate sedation)1242 (Given - Provider: Frances Lazaro RN - Comment: med for sedation) ONCE PRN, Starting Wed08/01/12 at 1239, Until Wed08/01/12 at 1736, Itching, Intra-Operative (Intra-Procedure), Routine fentaNYL 50mcg/mL injection (CANCELED) 1239 (Given - Provider: Frances Lazaro RN - Comment: first dose of moderate sedation)1242 (Given - Provider: Frances Lazaro RN - Comment: med for sedation)1245 (Given - Provider: Frances Lazaro RN - Comment: med for sedation) ONCE PRN, Starting Wed08/01/12 at 1239, Until Wed08/01/12 at 1736, Pain, Intra-Operative (Intra-Procedure), Routine midazolam (VERSED) injection (CANCELED) 1240 (Given - Provider: Frances Lazaro RN - Comment: first dose of modeerate sedation)1242 (Given - Provider: Frances Lazaro RN - Comment: med for sedation)1246 (Given - Provider: Frances Lazaro RN - Comment: med for sedation) ONCE PRN, Starting Wed08/01/12 at 1240, Until Wed08/01/12 at 1736, Sleep, Intra-Operative (Intra-Procedure), Routine documented in this encounter Care Teams Campaign Marketing Manager Relationship Specialty Start Date End Date Jh Guillaume MD PCP - General 08/01/12 09/28/12 [address] [facility] [address] documented as of this encounter
--- OUTSIDE RECORDS SUMMARY | 2022-08-07 15:16 | XMS_ITS | Encounter Summary ---
:1990 Author Organization [facility] Address [facility] [place] [address] Care Team Providers Name Role Phone Sky Jensen MD Primary Care Provider Encounter Details Date Type Department Care Team Description 10/23/2015 Telephone Cardiology at [facility] [place] Jonatan Price MD [facility] [place] [facility] [place] [address] CARDIOLOGY DEPT [phone] [place], [place] [address] (Wo rk) Social History Tobacco Use Types Packs/Day Years Used Date Smoking Tobacco: Every Day Cigarettes 1 5 Smokeless Tobacco: Never Alcohol Use Standard Drinks/Week Comments Yes 3 (1 standard drink = 0.6 oz pure alcoho l) Sex Assigned at Date Recorded Not on file documented as of this encounter Miscellaneous Notes Telephone Encounter - Jonatan Price - 10/23/2015 12:37 PM EST I called the patient, triggered by the phone call our office received yesterday. The patient had a typical syncopal episode (while standing and cooking, ringing in ears followed by lightheadedness and syncope) on 10/21/2015. She did have some head and back trauma from this. She was evaluated in [facility] ED on 10/22/2015, with no significant injuries, only a tweaked back. She was wearing the ziopatch at the time. Due to a misunderstanding, the patient had stopped fluorinef (shethought it interacted with the ziopatch), and so this event happened without medication. After the episode on 10/21, she started midodrine 2.5 mg tid, and It subsequently increased to 5 mg tid in the ED. I asked her to do the following: ?? Continue midodrine 5 mg tid ?? Restart fludrocortisone 0.1 mg daily ?? Continue with stress test ?? Phone check in ~2 weeks, to see how she is doing, and to review ziopatch results, which captured her syncope episode I also spoke to her PCP, Dr. Jensen. He is in agreement with these recommendations. Jonatan Price MD Cardiac Electrophysiology Fellow Physician Pager [phone] Daytime documented in this encounter Plan of Treatment Not on filedocumented as of this encounter Visit Diagnoses Not on filedocumented in this encounter Care Teams Paralegal Assistant Relationship Specialty Start Date End Date Sky Jensen MD PCP - General 12/03/14 07/22/[address] [place] [id number] documented as of this encounter
--- OUTSIDE RECORDS SUMMARY | 2022-08-07 15:16 | XMS_ITS ---
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) Problem Condyloma acuminatum A63.0 Active 764018966 Problem Dysmenorrhea N94.6 Active 9052448 00 Problem Dyspareunia N94.1 Active 65749478 Problem Right lower quadrant R10.31 Active 652200028 pain ALLERGIES Substance Reaction Event Type Date Status enviromental Unknown Non Drug Allergy Apr, Active kiwi rash Non Drug Allergy Apr, Active NSAID nosebleeds Non Drug Allergy Apr, Active banana rash Non Drug Allergy Apr, Active lidocaine feels itchy but no rash Non Drug Allergy Apr, Active ENCOUNTERS Encounter Location Date Diagnosis [address] Jun, [facility] [place] [id number] [address] May, [place], [place] [id number] [facility] [address] [place] [address] May, [place] [address] [facility] [address] [place] [address] Apr, [facility] [address] [place] [id number] [facility] [address] [place] [address] Apr, Menorrhag ia with regular [place] [address] cycle N92.0 ; Dy smenorrhea [place] N94.6 and BECKY II (cervical 400520055 intraepithelial neoplasia II) N87.1 [facility] [address] [place] [address] Mar, LGSIL on Pap smear of [place] [address] cervix R87.612 a nd [place] Menorrhagia with regular [id number] cycle N92.0 [facility] [address] [place] [address] Feb, [facility] [address] [place] [id number] [facility] [address] [place] [address] Feb, Cervical cancer screening [place] [address] Z12.4 ; Gynecolo gic exam [place] normal Z01.419 a nd Dysuria [id number] R30.0 [facility] [address] [place] [address] January, [facility] [address] [place] [id number] [facility] [address] [place] [address] Mar, [facility] [address] [place] [id number] [facility] [address] [place] [address] Dec, 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419 ; [id number] Encounter for sc reening for malignant ne oplasm of cervix Z12.4 and Tobacco use disorder F17 .200 [facility] [address] [place] [address] Jun, Right low er quadrant pain Health Road [address] R10.31 [place] [id number] [facility] [address] [place] [address] Oct, Surgery f ollow-up Health [address] examination Z09 [place], [place] [id number] [address] Sep, Healthcare [address] [place] [id number] [facility] [address] [facility] Aug, [address] [place] [id number] [facility] [address] [place] [address] Aug, Right low er quadrant pain Health [address] R10.31 and Dyspa reunia [place], [place] N94.[id number] Aug, [address] [place] [id number] [address] Jul, [address] [place] [id number] [address] Jul, Right low er quadrant Health [address] abdominal pain R 10.31 [place], [place] [id number] [facility] [address] [place] [address] Nov, [facility] [address] [place], [place] [id number] [facility] Sep, Dysmenorr hea [address] [place] [id number] [address] Mar, Dysmenorr hea [address] [place] [id number] [address] Feb, Dysmenorr hea [address] [place] [id number] [address] Dec, Health [address] [place] [id number] [address] Nov, Health [address] [place] [id number] [address] Nov, ROUTINE G YN EXAMINATION Health [address] V72.31 ; Dysmeno rrhea [place] 625.3 and Tobacc o use [id number] disorder 305.1 [facility] [address] [place] [address] Oct, [address] [place] [id number] [address] Oct, Dysmenorr hea [address] [place] [id number] [facility] [address] [facility] Aug, Vaginitis [address] [place] [id number] [facility] [address] [facility] Jul, Dysmenorr hea [address] [place] [id number] [facility] [address] [facility] Jul, Health [address] [place] [id number] [facility] [address] [place] [address] Jun, [address] [place] [id number] [address] Jun, Unspecifi ed symptom Health [address] associated with female [place] genital organs 6 25.[id number] Mar, Healthcare [address] [place] [id number] [address] Mar, Health [address] [place] [id number] Mar, Health [address] [place] [id number] Mar, Contracep tion management Health [address] V25.9 and Condyl marry 078.10 [place] [id number] [facility] [address] [facility] January, Greater Trochanteric [place] Bursitis 726.5 a nd Tobacco 057249243 use disorder 305 .1 [facility] [address] [facility] Dec, [place] [id number] [facility] [address] Dec, [place] [id number] [facility] [address] Dec, Tobacco use disorder 305.1 [place] ; Bursitis of hi p 726.5 ; [id number] GERD [Gastroesop hageal reflux disease] 530.81 ; Heartburn 787.1 ; Pelvic Pain - Females 6 29.9 and INFECTION OF KID MARSHA NOS 590.[address] Nov, [address] [place] [id number] [address] Nov, Abdominal pain, right [address] upper quadrant 7 89.01 ; [place] Pelvic Pain - Fe males [id number] 629.9 and Condyl marry acuminatum 078.[address] Nov, Condyloma acuminatum [address] 078.11 [place] [id number] [facility] [address] [facility] Oct, Greater Trochanteric [place] Bursitis 726.5 a nd Tobacco 351344264 use disorder [address] Oct, Condyloma acuminatum [address] 078.11 [place] [id number] [address] Oct, Condyloma acuminatum [address] 078.11 [place] [id number] [address] Sep, Condyloma acuminatum Health [address] 078.11 [place] [id number] [facility] [address] [facility] Sep, Greater Trochanteric [place] Bursitis 726.5 a nd Tobacco 484681886 use disorder [address] Sep, Condyloma acuminatum [address] 078.11 [place] [id number] [address] Sep, HIGH-RISK SEXUAL BEHAVR Health Road [address] V69.2 and Condyl marry [place] acuminatum 078.1 [id number] Aug, HIGH-RISK SEXUAL BEHAVR Health Road [address] V69.2 and Condyl marry [place] acuminatum 078.[id number] Aug, Spontaneous , Healthcare Op [address] [place] incomplete, c omplicated by [id number] delayed or exces sive hemor 634.[address] Aug, Abdominal pain, Health [address] generalized 789. 07 [place] [id number] [address] Aug, [address] [place] [id number] [address] Aug, Health [address] [place] [id number] [address] Jul, Irregular menstrual cycle Health [address] 626.4 and SUPERV IS NORMAL [place] 1ST PREG V22.0 [id number] [facility] [address] [place] [address] Road May, Greater Trochanteric [place] Bursitis 726.5 a nd Tobacco 033856166 use disorder [address] Mar, Other a nd unspecified [place] superf. injury o f hip, [id number] thigh, leg, & an kle, infected 916.9 a nd 2ND DEG BURN LEG NOS 945 [address] Feb, Sprain of hip NOS 843.9 [place] and 2ND DEG BURN LEG NOS [id number] [address]45.[address] Feb, [place] [id number] [address] January, [place] [id number] [address] Dec, [place] [id number] [address] Dec, Healthcare [address] [place] [id number] [address] Dec, [place] [id number] [address] Nov, Ot[address]aryngology [address] [place] [id number] [address] Nov, Deviated nasal septum [address] ; Rhinitis 472.0 and Cough [place], [place] 786.[id number] Nov, Acute sinusitis NOS [address] ; Deviated nasal septum [place], [place] 470 ; Impacted c erumen [id number] 380.4 and Conduc tive hearing loss, ex ternal ear 389.[address] Nov, [place] [id number] [address] Nov, Chronic tonsill itis and Otolaryngology Road [address] adenoiditis 474. 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 02 and [place] Neoplasm of unce rtain 156564180 behavior of lip, oral cavity, and phar ynx 235.1 [facility] [address] [facility] Sep, [place] [id number] [address] Aug, Acute tonsillit is 463 ; [address] Odynophagia 530. 89 and [place] Lymphadenitis NO S 289.[id number] Aug, Acute tonsillit is 463 ; [address] Odynophagia 530. 89 and [place] Lymphadenitis NO S 289.3 [id number] [facility] [address] [facility] Jul, [place], [place] [id number] [facility] [address] Jul, [place] [id number] [facility] [address] [facility] May, [place], [place] [id number] IMMUNIZATIONS No Known Immunizations SOCIAL HISTORY Qualifiers Date Former Smoker REASON FOR REFERRAL FUNCTIONAL STATUS PLAN OF CARE Activity Details Future Test US OB LESS THAN 14 WEEKS 201 67233 VITAL SIGNS Height 69 in 2022-04-30 Height 69 in 2022-04-15 Height 69 in 2022-02-26 Height 69 in 2018-12-26 Height 69 in 2017-12-22 Height 69 in 2016-12-07 Height 69 in 2016-06-22 Height 69 in 2015-11-04 Height 69 in 2015-09-06 Height 69 in 2015-08-14 Height 69 in 2014-09-26 Height 69 in 2014-03-28 Height 69 in 2014-02-23 Height 69 in 2013-11-22 Height 69 in 2013-11-01 Height 69 in 2013-09-04 Height 69 in 2013-07-31 Height 69 in 2013-06-26 Height 69 in 2013-04-07 Height 69 in 2012-02-10 Height 69 in 2011-12-23 Height 70 in 2011-11-25 Height 70 in 2011-09-23 Height 60 in 2011-08-28 Height 60 in 2011-04-15 Weight 184.2 lbs 2022-04-30 Weight 183.6 lbs 2022-04-15 Weight 192 lbs 2022-02-26 Weight 175.6 lbs 2018-12-26 Weight 160.6 lbs 2017-12-22 Weight 161.8 lbs 2016-12-07 Weight 162.0 lbs 2016-06-22 Weight 172.4 lbs 2015-11-04 Weight 170.8 lbs 2015-09-06 Weight 162.6 lbs 2015-08-14 Weight 166.2 lbs 2014-09-26 Weight 177 lbs 2014-03-28 Weight 177.4 lbs 2014-02-23 Weight 194.6 lbs 2013-11-22 Weight 192.2 lbs 2013-11-01 Weight 187 lb 2 oz lbs 2013-09-04 Weight 188 lb 6 oz lbs 2013-07-31 Weight 191 lb 6 oz lbs 2013-06-26 Weight 190 lb 4 oz lbs 2013-04-07 Weight 199 lbs 2012-02-10 Weight 196 lbs 2011-12-23 Weight 190.8 lbs 2011-11-25 Weight 189 lbs 2011-11-11 Weight 182 lbs 2011-10-05 Weight 188.4 lbs 2011-09-23 Weight 173 lbs 2011-08-28 Weight 173 lbs 2011-06-15 Weight 170 lbs 2011-04-15 Weight 172 lbs 2011-03-16 Temperature 97.3 degrees Fahrenheit 2011-12-08 Temperature 36.5 degrees Fahrenheit 2011-08-28 Temperature 98.6 degrees Fahrenheit 2011-03-16 Heart Rate 64 /min 2013-11-22 Heart Rate 67 /min 2012-02-10 Heart Rate 72 /min 2011-12-23 Heart Rate 80 /min 2011-12-08 Heart Rate 80 /min 2011-11-11 Heart Rate 80 /min 2011-10-05 Heart Rate 71 /min 2011-08-28 Heart Rate 88 /min 2011-06-15 Heart Rate 84 /min 2011-04-15 Heart Rate 76 /min 2011-03-16 Heart Rate 80 /min 2010-12-15 Heart Rate 68 /min 2010-12-08 Heart Rate 70 /min 2010-11-20 Heart Rate 80 /min 2010-11-05 Heart Rate 76 /min 2010-09-11 Heart Rate 80 /min 2010-08-27 Respiratory Rate 17 /min 2012-02-10 Respiratory Rate 20 /min 2011-12-23 Respiratory Rate 16 /min 2011-12-08 Respiratory Rate 16 /min 2011-11-11 Respiratory Rate 16 /min 2011-10-05 Respiratory Rate 16 /min 2011-08-28 Respiratory Rate 16 /min 2011-06-15 Respiratory Rate 16 /min 2011-04-15 Respiratory Rate 16 /min 2011-03-16 Respiratory Rate 16 /min 2010-12-15 Respiratory Rate 16 /min 2010-12-08 Respiratory Rate 15 /min 2010-11-20 Respiratory Rate 16 /min 2010-11-05 Respiratory Rate 15 /min 2010-09-11 Respiratory Rate 16 /min 2010-08-27 BMI 27.20 kg/m2 2022-04-30 BMI 27.11 kg/m2 2022-04-15 BMI 28.35 kg/m2 2022-02-26 BMI 25.93 kg/m2 2018-12-26 BMI 23.71 kg/m2 2017-12-22 BMI 23.89 kg/m2 2016-12-07 BMI 23.92 kg/m2 2016-06-22 BMI 25.46 kg/m2 2015-11-04 BMI 25.22 kg/m2 2015-09-06 BMI 24.01 kg/m2 2015-08-14 BMI 24.54 kg/m2 2014-09-26 BMI 26.14 kg/m2 2014-03-28 BMI 26.19 kg/m2 2014-02-23 BMI 28.73 kg/m2 2013-11-22 BMI 28.38 kg/m2 2013-11-01 BMI 27.63 kg/m2 2013-09-04 BMI 27.82 kg/m2 2013-07-31 BMI 28.26 kg/m2 2013-06-26 BMI 28.09 kg/m2 2013-04-07 BMI 29.38 kg/m2 2012-02-10 BMI 28.94 kg/m2 2011-12-23 BMI 27.37 kg/m2 2011-11-25 BMI 27.03 kg/m2 2011-09-23 BMI 33.78 kg/m2 2011-08-28 BMI 33.20 kg/m2 2011-04-15 Blood pressure systolic 112 mm Hg 2022-04-30 Blood pressure diastolic 72 mm Hg 2022-04-30 MEDICATIONS Unknown Medications PROCEDURES Procedure Date Ordered Result Body Site BOB/WET [place] VAGINAL Sep 04, 2013 VULVAR LESION SIMPLE DESTRUCTION W/LASER TCA CRYO November 25, 2011 X-RAY EXAM PELVIS; 1 OR 2 VIEWS Nov 11, 2011 VULVAR LESION SIMPLE DESTRUCTION W/LASER TCA CRYO Oct 12, 2011 VULVAR LESION SIMPLE DESTRUCTION W/LASER TCA CRYO Sep 23, 2011 X-RAY EXAM OF HIP Nov 11, 2011 EXCISION LESION, MOUTH ROOF Nov 10, 2010 REMOVE TONSILS AND ADENOIDS, AGE 12+ YRS Nov 10, 2010 DESTRUCTION PREMALIG, FIRST LESION April 07, 2013 VULVAR LESION SIMPLE DESTRUCTION W/LASER TCA CRYO Sep 18, 2011 VULVAR LESION SIMPLE DESTRUCTION W/LASER TCA CRYO Oct 26, 2011 IH URINALYSIS NONAUTO W/O SCOPE February 26, 2022 VULVAR LESION SIMPLE DESTRUCTION W/LASER TCA CRYO December 08, 2011 VULVAR LESION SIMPLE DESTRUCTION W/LASER TCA CRYO Sep 30, 2011 BIOPSY OF CERVIX W/SCOPE April 15, 2022 VULVAR LESION SIMPLE DESTRUCTION W/LASER TCA CRYO Nov 09, 2011 RESULTS Name Result Date Reference Range Biopsy 2022-04-15 US PELVIC ULTRASOUND 2022-04-30 Pap Lb, Ct-Ng, rfx HPV ASCU 2022-02-26 . Chlamydia, Nuc. Acid Amp Gonococcus, Nuc. Acid Amp Note: . Clinical history: DIAGNOSIS: Specimen adequacy: Additional comment: Recommendation: Performed by: Electronically signed by: Test ordered: Maturation index: Amended report: Addendum: QC reviewed by: Cytology history: Special procedure: QA comment: Diagnosis provided by: Source: Pathologist provided ICD9: Clinician provided ICD9: Interpretation LBP CPT Code Automation URINE DIP ([facility]) 2022-02-26 Color light yello Clarity clear Glucose neg Bilirubin neg Ketones neg Specific [place] 1.000 Blood neg PH 6 Protein trace Uro neg Nitrates neg Leukocytes trace COVID 19 SCREENING PCR ([id number]) 2021-07-29 SARS-CoV-2, KAZ Not Detected Not Detected Pap Lb, rfx HPV ASCU 2018-12-26 . Note: . Clinical history: DIAGNOSIS: Specimen adequacy: Additional comment: Recommendation: Performed by: Electronically signed by: Test ordered: Maturation index: Amended report: Addendum: QC reviewed by: Cytology history: Special procedure: QA comment: Diagnosis provided by: Source: Pathologist provided ICD9: Clinician provided ICD9: Interpretation LBP CPT Code Automation Pap Lb, rfx HPV ASCU 2016-12-07 . Note: . Clinical history: DIAGNOSIS: Specimen adequacy: Additional comment: Recommendation: Performed by: Electronically signed by: Test ordered: Maturation index: Amended report: Addendum: QC reviewed by: Cytology history: Special procedure: QA comment: Diagnosis provided by: Source: Pathologist provided ICD9: Clinician provided ICD9: Interpretation LBP CPT Code Automation Pap Lb, rfx HPV ASCU 2013-11-22 . Note: . 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[employer] TRANSVAGINAL 2013-08-07 US PELVIC ULTRASOUND 2011-12-11 US RENAL/KIDNEYS LIMITED 2011-12-11 XR HIP RIGHT 2011-11-11 XR PELVIS 2011-11-11 CHLAMYDIA TRACHOMATIS/NEISSERIA GONORRHOEAE, 201 10-01-29 RRNA Chlamydia, DNA Probe Negative Negative N gonorrhoeae, DNA Probe Negative Negativ e HIV 1/0/2 ANTIBODIES 2011-08-18 CBC, WITH AUTO DIFF (do not order) 2011-08-18 WBC 10.4 4.8-10.8 RBC 4.13 4.20-5.40 HEMOGLOBIN 12.5 12.0-16.0 HEMATOCRIT 37.1 37.0-47.0 MCV 90.0 81.0-99.0 MCH 30.3 27.0-31.0 MCHC 33.7 32.0-36.0 RDW 12.4 11.5-14.5 PLATELETS 229 130-400 MPV 8.4 7.4-10.4 NEUTROPHIL % 61.0 42.2-75.2 LYMPHS % 29.3 20.5-51.1 MONOCYTES % 7.3 1.7-9.3 EOSINOPHILS % 1.9 0.9-2.9 BASOPHILS % 0.5 0.0-0.8 NEUTROPHILS # 6.3 1.4-6.5 LYMPHOCYTES # 3.0 1.2-3.4 MONOCYTES # 0.8 0.1-0.6 EOSINOPHILS # 0.2 0.0-0.2 BASOPHILS # 0.1 0.0-0.2 MANUAL DIFFERENTIAL? NO RPR, 2011-08-18 RPR NON-REACTIVE NON-REACTIVE RUBELLA IGG ANTIBODY 2011-08-18 HEPATITIS B SURFACE ANTIGEN 2011-08-18 HEPATITIS B SURFACE ANTIGEN negative HEPATITIS B SURFACE AG CONFIRMATORY TYPE AND SCREEN, 2011-08-18 ABORH TYPE A negative ANTIBODY SCREEN negative TS COMMENT TEST (URINE) 2010-11-10 REASON FOR VISIT [employer]NA[employer]MARK[employer] 6 week post op, MANAGER TE[employer]MARK[employer]ING Laparoscopic Hyst, Lap hyst, pre-op phone call , pre op , reschedule surgery, MANAGER TE[employer]MARK[employer] follow up US, MANAGER TELEMARKETING Colpo, wants to discuss hysterectomy-periods 4-5 days, lost of clots, cramps so bad that she needs to call out of work , LM, MANAGER TELEMARKETING EST WWE, burning with urination x 2 weeks, would like STI screening, Rx request, pap result, MANAGER TELEMARKETING well woman, MANAGER TELEMARKETING well woman, MANAGER TELEMARKETING well women-menses started, MANAGER TELEMARKETING well woman, MANAGER TELEMARKETING well woman, MANAGER TELEMARKETING-The pain is back on her right side, MANAGER TELEMARKETING-6 week post op, MANAGER TELEMARKETING- Laparoscopy with removal of adhesions or possible removal of the right fallopian tube or ovary, preop phone call, MANAGER TELEMARKETING still having alot of pain & wants to discuss options, Preop for laparoscopy, p ossible TRINA, possible removal of the right fallopian tube or ovary, +follow up, MANAGER TELEMARKETING ED follow up, Rtovary is enlarged, vaginal pain, EEG, MANAGER TE[employer]MARK[employer]ING 6 month follow up, MANAGER [employer] 1 month follow up, did a high fiberdiet, pt unsure if diet is helping totally, mood swings and facial hair, cramps are better, MANAGER TELEMARKETING discuss options for her pain/cramping, *pelvic pain, MANAGER TE[employer]MARKETING , second opinion, MANAGER TELEMARKETING well woman, Preop for JASMIN with removal of the fallopian tubes, *surgery, MANAGER [employer]MARK[employer] 3 month follow up, Pt states the control "calmed it down however, states when she had her cycle I had really bad cramps and contractions , Pt states removed the NuvaRing on 10/22/13, MANAGER TELEMARKETING she thinks that she has some sort of infection-started having some brown spotting on Wednesday and is having brown/red spotting today. is not sure if she had a break out of the cold sores down there. having mucousy discharge, MANAGER TE[employer]MARKETING pain-thinks that she is ovulating now. took Nuvaring out today. took some tylenol but that did not help, FYI-pain,FYI-ovary pain, MANAGER TELEMARKETING ER FU pelvic inflammatory-pain stopped after taking abx for 3 days. had the sameissue in May. feels like she has been having issues since her BTL, MANAGER TELEMARKETING CANC PER PT 05/30/13 @ 8:20AM, MANAGER TELEMARKETING BTL, OR time not avail/pt ins will term 04/19, pre op info, pre op call, MANAGER TELEMARKETING BTL consult-wants BTL-seems to have miscarriages when she gets and she has had an IUD and it poked through her uterus a few weeks after it was placed, Preop for Laparoscopic tubal ligation, orth R hip, CAN'T RUN IR SLEEP ON THAT SIDE, SCRIPTS, nexium dosage, ORTH follow up on right hip patient reports feeling sore, still hurts. , FYI-ultrasound results, 2 wk f/u warts, MANAGER TELEMARKETING 2 wk f/u warts, 2 wk f/u warts, ORTH R hip, fell snowboarding, 2 wk f/u warts, MANAGER TE[employer]MARKETING f/u warts, MANAGER [employer]MARKETING 1 week follow up, ORTH- right hip- hurts once in a while, usually after lying on it or its elevated. , MANAGER [employer]MARK[employer]ING 1 week follow up. took NuvaRing out on Wednesday., MANAGER TELEMARKETING 1 week follow up, MANAGER TELEMARKETING 3 week post op-feeling good. no bleeding or pain issues.is wondering about starting the nuvaring again, OB New OB patient, MANAGER TELEMARKETING D & C, Preop Note, MANAGER TELEMARKETING pain/miscarriage, schedule surgery, OB New OB patient, spotting, MANAGER TELEMARKETING test/form for insurance,ORTH RIGHT HIP, orth, hip,blisters, ORTH - F/U , ORTH - F/U R CALF BURN, ORTH PAIN + OCC NUMBNESS, ORTH, ORTH P/O R HIP 01/01, ORTH MORE PAIN, ORTH R HIP ZPLASTY SNAPPING, ent 2 wk fu , ORTH H+P SURG 01/01, MEDICATION REACTION, cough, nasal congestion, sinusitis, left ear feels plugged, ORTH - F/U HIP, sore throat, SORE THROAT,NASAL CONGESTION, ENT T&A WART REMOVAL, ORTH - F/U R HIP, recurring tonsi llitis, ENT THROAT, LORTH f/u, ORTH-F/U, recent sore throat, ENT, ORTH - F/U, sore throat, question peritonsillar abscess, ORTH HIP , ORTH F/UP, ORTH HIP PAIN Insurance Providers [facility] Member Patient Patient Patient Patient Patient Subscriber Subscriber Subscriber Group Insurance Plan Plan Plan Plan ID Relationship Address Phone Name Date of ID Name Date of No Type Insurance Insurance Insurance Coverage to Subscriber Address Phone Name Dates [place] [phone] [place] [id number] [place]ICAID [place] 06 [place] [id number] [place] [phone] [place] [id number] [place] [address] [place] [address] [place] [address] [place] [phone] [place] [id number] [place] 06 [place] [id number] [place] [phone] [place] [id number] [place] [id number] [place] cover a [id number] ge [employer] [phone] [employer] self [place] [id number] PLAN [id number] [place] [id number]
--- OUTSIDE RECORDS SUMMARY | 2022-08-07 15:16 | XMS_ITS | Encounter Summary ---
:1990 Author Organization [facility] [place] [address] Care Team Providers Name Role Phone Cornelia Hernandez Primary Care Provider Reason for Visit Reason Comments Plantar Warts Consultation (Routine) - Specialty Diagnoses / Procedures Referred By Contact Refer red To Contact Podiatry Diagnoses Plantar wart Rina Mccain APRN [facility] Podiatry [address] [place], [place] [address] [address] [place] [address] Fax: Referral ID Status Reason Start Date Expiration Date Visits V isits Requested Authorized [id number] Consult, Test 07/05/2020 12/13/2020 [facility] PCP Updated and/or Approved Encounter Details Date Type Department Care Team Description 09/26/2020 Office Visit Podiatry at [facility] Brook Michelle, Plantar wart; [facility] Pain in both feet; [facility] Metatarsalgia of both feet [facility] [address] [place] [address] [phone] Social History Tobacco Use Types Packs/Day Years Used Date Smoking Tobacco: Former Cigarettes 1 5 Smokeless Tobacco: Never Alcohol Use Standard Drinks/Week Comments Yes 3 (1 standard drink = 0.6 oz pure alcoho l) Sex Assigned at Date Recorded Not on file documented as of this encounter Patient Instructions Patient InstructionsBrook Michelle DPM - 09/26/2020 2:30 PM EST Images from the original note were not included. [employer] Bowen Plus Met Insoles Patient Education Plantar Warts: Care Instructions Your Care Instructions A plantar wart is a harmless skin growth. Plantar warts occur on the bottom of your feet and may be painful when you walk. A virus makes the top layer of skin grow quickly, causing a wart. Warts usually go away on their own in months or years. Warts are spread easily. You can infect yourself again by touching the wart and then touching another part of your body. You also can infect others by sharing towels, razors, or other personal items. Most plantar warts do not need treatment. But if warts cause you pain or spread, your doctor may recommend that you use an zezb-yac-ffultjk treatment. These include salicylic acid or duct tape. Your doctor may prescribe a stronger medicine to put on warts or may inject them with medicine. Your doctor also can remove warts through surgery or by freezing them. Follow-up care is a lees part of your treatment and safety. Be sure to make and go to all appointments, and call your doctor if you are having problems. It's also a good idea to know your test results and keep a list of the medicines you take. How can you care for yourself at home? ?? Use salicylic acid or duct tape as your doctor directs. You put the medicine or the tape on a wart for a while and then file down the skin on the wart. You use the salicylic acid treatment for 2 to 3 months or the tape for 1 to 2 months. ?? If your doctor prescribes medicine to put on warts, use it exactly as prescribed. Call your doctor if you think you are having a problem with your medicine. ?? Wear comfortable shoes and socks. Avoid high heels or shoes that put a lot of pressure on your foot. ?? Pad the wart with doughnut-shaped felt or a moleskin patch. You can buy these at a [employer]. Putthe pad around the plantar wart so that it relieves pressure on the wart. You also can place pads orcushions in your shoes to make walking more comfortable. ?? Take an sqze-xnj-sdmdsjq medicine, such as acetaminophen (Tylenol), ibuprofen (Advil, Motrin), ornaproxen (Aleve) if you have pain. Read and follow all instructions on the label. ?? Do not take two or more pain medicines at the same time unless the doctor told you to. Many pain medicines have acetaminophen, which is Tylenol. Too much acetaminophen (Tylenol) can be harmful. When should you call for help? Call your doctor now or seek immediate medical care if: ? You have signs of infection, such as: ? Increased pain, swelling, warmth, or redness. ? Red streaks leading from a wart. ? Pus draining from a wart. ? A fever. Watch closely for changes in your health, and be sure to contact your doctor if: ? You do not get better as expected. Where can you learn more? Visit our [facility] information library at [email or web address] You can also view health information on [employer], your personal patient account. Log in or sign up today. Enter S429 in the search box to learn more about Plantar Warts: Care Instructions. Current as of: March 21, 2020?Content Version: 12.7 ?? [id number] [employer]. Care instructions adapted under license by [facility]. If you have questions about a medical condition or this instruction, always ask your healthcare professional. [employer] disclaims any warranty or liability for your use of this information. documented in this encounter Progress Notes Brook Michelle DPM - 09/26/2020 2:30 PM EST [facility] Note Name: Lori Cruz Age:30 y.o. MR#: [id number] Date of Service: 09/26/2020 SUBJECTIVE: Lori Cruz is a pleasant 30 y.o. female who presents to the clinic today with chiefcomplaint of warts affecting both feet x 5+ years. Rates pain as being 3/10, worsened with direct pressure to sites/stairs/ambulation. Relates being active on her feet and reports discomfort persistingdespite in the past undergoing cryotherapy, topical medications, and compound creams. Relates following up with dermatology in the past. Denies any recent orthotics. Relates small wart on left hand. Noother sites of involvement. No redness, swelling, odors, or pus. No other pedal complaints. Expresses interest in surgical excision. No constitutional symptoms reported. Allergies Allergen Reactions [...] file Occupational History ??? Not on file Social Needs ??? Financial resource strain: Not on file ??? Food insecurity Worry: Not on file Inability: Not on file ??? Transportation needs Medical: Not on file Non-medical: Not on file Tobacco Use ??? Smoking status: Current Every Day Smoker Packs/day: 1.00 Years: 5.00 Pack years: 5.00 Types: Cigarettes ??? Smokeless tobacco: Never Used Substance and Sexual Activity ??? Alcohol use: Yes Alcohol/week: 3.0 standard drinks Types: 3 Standard drinks or equivalent per week ??? Drug use: No ??? Sexual activity: Not on file Lifestyle ??? Physical activity Days per week: Not on file Minutes per session: Not on file ??? Stress: Not on file Relationships ??? Social connections Talks on phone: Not on file Gets together: Not on file Attends hindu service: Not on file Active member of club or organization: Not on file Attends meetings of clubs or organizations: Not on file Relationship status: Not on file ??? Intimate partner violence Fear of current or ex partner: Not on file Emotionally abused: Not on file Physically abused: Not on file Forced sexual activity: Not on file Other Topics Concern ??? Not on file Social History Narrative ??? Not on file Family History Problem Relation Age of Onset [...] ROS were reviewed and negative. OBJECTIVE: GEN: Patient is in no acute distress and AAOX3. Gait stable and non-antalgic. DERM: Skin supple and dry with no open lesions or macerations appreciated. Hyperkeratotic skin lesion measuring 1 x 1 cm plantar left fifth metatarsal head and 0.5 x 0.5 cm right fifth metatarsal head,upon debridement absent skin lines consistent with verruca. Surrounding skin severely hyperkeratotic. Hair growth present. Temperature gradient within normal limits. No apparent increased warmth. No signs of infection bilaterally. Interspaces 1-4 bilaterally dry and intact with no evidence of fungal/bacterial infection. VASC: Dorsalis pedis + 2/4 bilaterally and posterior tibial pulse + 2/4 bilaterally. Capillary refill 3 seconds to all digits. No significant edema noted. No claudication, no rest pain, no color changes. NEURO: Epicritic sensation intact bilaterally. MSK: Tenderness on exam at site of hyperkeratotic skin lesions. No other sites of palpable pain. Ambulatory. Active painfree ROM noted of pedal and ankle joints bilaterally. Mildly prominent fifth metatarsal head lateral aspect. ASSESSMENT: Painful chronic plantar warts, left greater than right Mild tailor bunion PLAN: Patient evaluated with condition and treatment options for management discussed at length including surgical curettage with cauterization. Discussed with patient importance of exhausting conservative care and risk of recurrence, surgical scar, chronic pain, and other complications with procedure. Educated patient underlying bony deformity which exacerbates condition. Following verbal consent and application of ethyl chloride spray sharply debrided painful chronic plantar warts x2 and covered with salicylic acid medicated pad. Instructed patient to keep clean dry and covered for up to 48 hours, thenbegin using pumice stone daily on moist skin and apply salicylic acid 40%. Discussed blister reaction may occur. Advised orthotics with metatarsal offloading pad. Strict avoidance of barefoot ambulation. Prevention reviewed. Discussed monitoring for any satellite lesions. Answered all questions. Patient verbalized understanding of all instructions. FOLLOW UP: 6 weeks or sooner if any concerns or changes arise Brook Michelle DPM [facility], [facility] documented in this encounter Plan of Treatment Not on filedocumented as of this encounter Visit Diagnoses Diagnosis Plantar wart Pain in both feet Pain in limb Metatarsalgia of both feet Enthesopathy of ankle and tarsus, unspec ified documented in this encounter Care Teams Percussion Teacher Relationship Specialty Start Date End Date Cornelia Hernandez PA PCP - General Family Medicine 07/23/[address] [place] [address] documented as of this encounter
--- OUTSIDE RECORDS SUMMARY | 2022-08-07 15:16 | XMS_ITS | Encounter Summary ---
:1990 Author Organization [facility] [place] [address] Care Team Providers Name Role Phone Sky Jensen MD Primary Care Provider Reason for Visit Auth/Cert Specialty Diagnoses / Procedures Referred By Contact Refer red To Contact Procedures observation Referral ID Status Reason Start Date Expiration Date Visits Requ ested Visits Authorized [id number] 1 1 Encounter Details Date Type Department Care Team Description 10/10/2015 Hospital Encounter Non-Invasive Thang Isidro, Vaso vagal syncope Cardiology Lab Malini RODRIGUES [facility] [place] [address] [place], [place] [phone] (Work) [phone] Social History Tobacco Use Types Packs/Day Years [...] Name Priority Date/Time Associated Diagnosis Comme nts ZIOPATCH Routine 10/10/2015 12:57 PM Vasovagal syncope Res ults for this EST procedure are i n the results section . documented in this encounter Results Ziopatch (10/10/2015 12:57 PM EST) Anatomical Region Laterality Modality Other Specimen (Source) Anatomical Location Collection Method / Collectio n Time Received Time / Laterality Volume Narrative 10/30/2015 12:14 PM EST [facility] ?ZIO PATCH ??REPORT Ordering Provider: ??Jonatan Price [...] collapse documented in this encounter Care Teams Biomass Production Manager Relationship Specialty Start Date End Date Sky Jensen MD PCP - General 12/03/14 07/22/20 [address] [place] [address] documented as of this encounter
--- OUTSIDE RECORDS SUMMARY | 2022-08-07 15:16 | XMS_ITS | Encounter Summary ---
:1990 Author Organization [facility] [place] [address] Care Team Providers Name Role Phone Sky Jensen MD Primary Care Provider Encounter Details Date Type Department Care Team Description 01/21/2015 External Results Endocrinology at [facility] Elsy Elizondo Hyperandrogenism [facility] [place] [address] [phone] ENDOCRINOLOGY DEPT [place], [place] [address] Social History Tobacco Use Types [...] Name Priority Date/Time Associated Diagnosis Comme nts 17-HYDROXYPROGESTERONE Routine 12/19/2014 Hyperandrogenism R esults for this procedure are i n the results section . documented in this encounter Results (ABNORMAL) 17-Hydroxyprogesterone (12/19/2014) Analysis Performed At Patho logist Time Signature 17-Hydroxyprog 93 (External Lab) Specimen (Source) Anatomical Location Collection Method / Collectio n Time Received Time / Laterality Volume Blood specimen 12/19/2014 (specimen) Riya Zarate MD CHEMISTRY ORDERABLES documented in this encounter Visit Diagnoses Diagnosis Hyperandrogenism Other ovarian hyperfunction documented in this encounter Care Teams Executive Housekeeper Relationship Specialty Start Date End Date Sky Jensen MD PCP - General 12/03/14 07/22/[address] [address] documented as of this encounter
--- OUTSIDE RECORDS SUMMARY | 2022-08-07 15:16 | XMS_ITS | Encounter Summary ---
:1990 Author Organization [place] [address] Care Team Providers Name Role Phone Sky Jensen MD Primary Care Provider Encounter Details Date Type Department Care Team Description 01/21/2015 External Results Endocrinology at [facility] Elsy Elizondo [facility] [place] [address] [facility] [phone] ENDOCRINOLOGY [place], [place] [address] (Wo rk) Social History Tobacco [...] on filedocumented in this encounter Care Teams Rn Practitioner Relationship Specialty Start Date End Date Sky Jensen MD PCP - General 12/03/14 07/22/20 [address] [place] [address] documented as of this encounter
--- OUTSIDE RECORDS SUMMARY | 2022-08-07 15:16 | XMS_ITS | Encounter Summary ---
:1990 Author Organization [facility] [place] [address] Care Team Providers Name Role Phone Jh Guillaume MD Primary Care Provider Encounter Details Date Type Department Care Team Description 08/01/2012 Hospital Encounter Gastroenterology at [facility] Avtar Zavala, [facility] [place] [address] [facility] [phone] CENTER GASTROENTEROLOGY [place], [place] [address] Social History Tobacco Use Types [...] - 08/01/2012 12:59 PM EST Please call [phone], before 5pm with problems, questions or concerns, after 5pm call the Hospital at [phone] and ask to speak to the Engineering Professionals data communications technician and the metal rivet machine operator will contact that person for you. [...] GI ENDOSCOPY: WHAT TO EXPECT AT HOME (PASHTO)documented in this encounter Medications at Time of [...] Component Value Ref Test Analysis Performed At [facility] Range Method Time Signature UPPER GI [facility] ENDOSCOPY Endoscopy Patient Name: Lori Cruz ? Procedure Date: 08/01/2012 12:36 PM ? Date of : 1990 ? Age: 22 ? Order #: [id number] ? Procedure: ? Upper GI endoscopy Indications: ? Heartburn, For Gonzalez placement Providers: ? Avtar Zavala MD, Frances Lazaro , ? RN, Chadd Saunders Referring MD: ?Dony Vu MD [...] adverse medication reactions. The New ? Lease 2012 was introduced thr ough the ? and [...] MAR Action Action Date Dose Rate Site sodium chloride 0.9% New Bag 08/01/2012 11:30 AM EST 50 mL/hr 50 mL/hr infusion 50 mL/hr, Intravenous, CONTINUOUS, Starting on Wed08/01/12 at 1130, Until Wed08/01/12 at 1736, Endoscopy (Day of Procedure) documented in this encounter Active and Recently Administered Medications Times are shown in EST. Continuous Medication Order 07/30/2012 07/31/2012 08/01/2012 sodium chloride 0.9% infusion (CANCELED) 1130 (New Bag - Provider: Debora Zaidi RN) 50 mL/hr, at 50 mL/hr, Intravenous, [...] Routine documented in this encounter Care Teams Quantitative Manager Relationship Specialty Start Date End Date Jh Guillaume MD PCP - General 08/01/12 09/28/12 [place] [address] documented as of this encounter
--- OUTSIDE RECORDS SUMMARY | 2022-08-07 15:16 | XMS_ITS | Encounter Summary ---
:1990 Author Organization [facility] [place] [address] Care Team Providers Name Role Phone Dony Vu APRN Primary Care Provider [phone] Reason for Visit Reason Onset Date Comments Other 09/21/2012 Question RE Anxiolyt ic Before OEM Encounter Details Date Type Department Care Team Description 09/21/2012 Telephone Gastroenterology at [facility] Ana Jamison Other (Question RE [facility] [place] [address] OEM) [phone] Social History Tobacco Use Types Packs/Day Years Used Date Smoking Tobacco: Every Day Alcohol Use Standard Drinks/Week Comments No 0 (1 standard drink = 0.6 oz pure alcoho l) Sex Assigned at Date Recorded Not on file documented as of this encounter Miscellaneous Notes Telephone Encounter - Ana Jamison - 09/21/2012 10:57 AM EST Pt called stating she needs anxiolytic before her OEM on 09/27/12 because she is allergic to Lidocaine/Benzocaine. Dr. James's ofc told her [facility] should order this, but we do not order pre-procedure anxiolytics for referred patients; RMDs are expected to do this. Told pt I would call RMDs office and explain and then call her back. Pt fine with this. -bcj documented in this encounter Plan of Treatment Not on filedocumented as of this encounter Visit Diagnoses Not on filedocumented in this encounter Care Teams Master Brewer Relationship Specialty Start Date End Date Dony Vu APRN PCP - General 09/29/12 12/02/14 [address] [place] [address] documented as of this encounter
--- OUTSIDE RECORDS SUMMARY | 2022-08-07 15:16 | XMS_ITS | Encounter Summary ---
:1990 Author Organization [facility] Address [facility] [place] [address] Care Team Providers Name Role Phone Sky Jensen MD Primary Care Provider Encounter Details Date Type Department Care Team Description 11/01/2015 Telephone Cardiology at [facility] Jonatan Price [place] [address] CARDIOLOGY DEPT [phone] [place], [place] [address] (Wo rk) Social History Tobacco Use Types Packs/Day Years Used Date Smoking Tobacco: Every Day Cigarettes 1 5 Smokeless Tobacco: Never Alcohol Use Standard Drinks/Week Comments Yes 3 (1 standard drink = 0.6 oz pure alcoho l) Sex Assigned at Date Recorded Not on file documented as of this encounter Miscellaneous Notes Telephone Encounter - Jonatan Price - 11/01/2015 4:53 PM EST I reviewed the Ziopatch tracings and EKG stress test tracings. The ziopatch showed no arrhythmias, even during one of her syncope spells. Exercise stress testing was diagnostic and did not show signs of ischemia or arrhythmia. Based on the above findings, she does not appear to have an alternative cardiac cause of her syncopeepisodes, and they are vasovagal. I attempted to call the patient today, to review the results and discuss symptoms/management. I lefta voicemail, and a brief message with her grandmother. Jonatan Price MD Cardiac Electrophysiology Fellow Physician Pager [phone] Daytime documented in this encounter Plan of Treatment Not on filedocumented as of this encounter Visit Diagnoses Not on filedocumented in this encounter Care Teams Thoroughbred Horse Farm Manager Relationship Specialty Start Date End Date Syk Jensen MD PCP - General 12/03/14 07/22/[address] [place] [address] documented as of this encounter
--- OUTSIDE RECORDS SUMMARY | 2022-08-07 15:16 | XMS_ITS | Encounter Summary ---
:1990 [place] [address] Care Team Providers Name Role Phone Cornelia Hernandez Primary Care Provider Encounter Details Date Type Department Care Team Description 01/23/2021 Orders Only Wound Care at [facility] , [address] [address] [phone] Social History Tobacco Use Types Packs/Day Years [...] on filedocumented in this encounter Care Teams Automotive Engineer Relationship Specialty Start Date End Date Cornelia Hernandez PA PCP - General Family Medicine 07/23/20 [address] [place] [address] documented as of this encounter
[2022-08-07 15:19] VITALS: BP 119/54; PULSE 72; RESP 18; O2SAT 98
--- NOTE | 2022-08-07 15:29 | W.ED.GENAD ---
Discharge Plan Disposition Patient Disposition: Home Condition: Improving Discharge Details Clinical Impression: Abdominal pain Primary Care Provider: Sky Jensen ED Provider: Gemma Edmonds Home Meds and New Rx's Prescriptions: Continued epinephrine 0.3 mg/0.3 mL auto-injector 0.3 mg IM DIRECTED PRN Label Comments: INJECT CONTENTS OF 1 PEN NEEDED FOR ALLERGIC REACTION Discharge Instructions Instructions: Abdominal Pain (ED) Additional Instructions: Your lipase was minimally elevated on your blood tests today. This is an enzyme in the pancreas and could be elevated in signs of pancreas inflammation. However, the remainder of your blood tests and your CT imaging today showed no evidence of acute abnormality and no evidence of pancreatic inflammation. Drink plenty of fluids and get plenty of rest. Take Tylenol as needed and directed for pain. You can consider starting to take an ealj-mme-bktkdnt H2 merlene such as Pepcid or an lcvy-dkh-dhkwire proton pump inhibitor such as Prilosec once daily for the next 2-weeks. Follow-up with your primary care doctor in 1 week. Return to the emergency department with any worsening or new concerning symptoms such as fever, persistent vomiting, worsening pain or any other concerns. Referrals: Alfonso Santos MD [ [facility] STAFF PHYSICIAN] - Discharge Data Discharge Date/Time-TO BE ENTERED AT DEPARTURE: 08/07/22 18:13 Discharge Physician: Gemma Edmonds Medical Decision Making <Gemma Edmonds DO - Last Filed: 08/10/22 19:09> 1600 -- 32-year-old female with a history of GERD, cholecystectomy in August 2021, Glenn fundoplication, tubal ligation, appendectomy, hernia repair presents for right upper quadrant abdominal pain. Patient was seen here 2 days ago for similar pain and had unremarkable work-up with declined CT imaging at that time. Vitals within normal limits. Patient appears comfortable and nontoxic. Her abdomen is soft without rigidity or guarding. She does have tenderness in the right upper quadrant. Differential diagnosis includes gastritis, GERD, PUD, pancreatitis, small bowel obstruction. Patient is now agreeable with CT scan. Urine test negative we will place an IV, bolus IV fluids, screening labs, urinalysis, CT abdomen pelvis and give a dose of IV Dilaudid IV Reglan and reassess. 1740 -- labs and imaging reviewed. White blood cell count 11.65. Normal electrolytes. Lipase minimally elevated at 513. Urinalysis notes 10-20 WBCs with moderate leukocyte esterase but many epithelial cells and appears contaminated. As patient has no urinary symptoms, will not treat with antibiotics at this time. CT notes a 2cm left ovarian cyst no other acute abnormalities noted. Patient reassessed and she feels much better and would like to go home. Case discussed and imaging reviewed with Dr. Santos --it is possible to have choledocholithiasis after cholecystitis but these would usually present as cholangitis with fever and jaundice. As patient feels better with reassuring bilirubin, liver enzymes and without fever and improving pain, will plan for discharge home at this time with return precautions given to return immediately if she develops fever, persistent vomiting, worsening pain or any other concerns. She was given general surgery follow-up information if needed. Medical Records Medical records reviewed: Yes I reviewed the patient's medical records. Sign Out No <GALI Moreno - Last Filed: 08/15/22 16:15> 1600 -- 32-year-old female with a history of GERD, cholecystectomy in August 2021, Glenn fundoplication, tubal ligation, appendectomy, hernia repair presents for right upper quadrant abdominal pain. Patient was seen here 2 days ago for similar pain and had unremarkable work-up with declined CT imaging at that time. Vitals within normal limits. Patient appears comfortable and nontoxic. Her abdomen is soft without rigidity or guarding. She does have tenderness in the right upper quadrant. Differential diagnosis includes gastritis, GERD, PUD, pancreatitis, small bowel obstruction. Patient is now agreeable with CT scan. Urine test negative we will place an IV, bolus IV fluids, screening labs, urinalysis, CT abdomen pelvis and give a dose of IV Dilaudid IV Reglan and reassess. 1739 -- labs and imaging reviewed. White blood cell count 11.65. Normal electrolytes. Lipase minimally elevated at 513. Urinalysis notes 10-20 WBCs with moderate leukocyte esterase but many epithelial cells and appears contaminated. As patient has no urinary symptoms, will not treat with antibiotics at this time. CT notes a 2cm left ovarian cyst no other acute abnormalities noted. Patient reassessed and she feels much better and would like to go home. Case discussed and imaging reviewed with Dr. Santos --it is possible to have choledocholithiasis after cholecystitis but these would usually present as cholangitis with fever and jaundice. As patient feels better with reassuring bilirubin, liver enzymes and without fever and improving pain, will plan for discharge home at this time with return precautions given to return immediately if she develops fever, persistent vomiting, worsening pain or any other concerns. She was given general surgery follow-up information if needed. [place]: my name was entered to this chart in error, I did not see this patient. HPI <Gemma Edmonds DO - Last Filed: 08/10/22 19:09> General Mode of arrival: ambulatory. Date/Time Provider Initiated Documentation: 08/07/22 15:19. Limitations to Documentation: no limitations. Information obtained by: patient. HPI Narrative: Patient is a 32-year-old female with a history of GERD, hiatal hernia repair with Glenn fundoplication, tubal ligation, appendectomy, cholecystectomy who presents for right upper quadrant abdominal pain for the past 6 days. Patient states the pain initially was cramping and aching and for the past 2 days has been more of a pulling sensation. She states the pain is currently 5/10. She has taken Tylenol at 1 PM today and Zofran earlier today without relief. She admits to nausea and occasional vomiting. She was able to eat soup today without any vomiting. She states she has had more loose and pale-colored stools since her cholecystectomy in August 2021 but states they have been becoming more normal color since then. She states a few days ago she had loose morataya stool but states her stool is now more formed and klein. She denies any fever, chest pain, difficulty breathing, urinary symptoms or rectal bleeding. 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 She states she is able to get a ride home from the ED if needed. Patient was seen in the ED 2 days ago for the same complaint. She had a reassuring work-up with lab test at that time but had declined CT imaging and was told to return for evaluation and consideration for CT imaging if her pain persisted. Related Data Home Medications Medication Instructions Recorded Confirmed epinephrine 0.3 mg/0.3 mL 0.3 mg IM DIRECTED PRN 08/05/22 08/05/22 injection, auto-injector Allergies Allergy/AdvReac Type Severity Reaction Status Date / Time kiwi Allergy Severe Hives Unverified 08/05/22 13:02 lidocaine Allergy Severe Itching Unverified 08/05/22 13:02 adhesive Allergy Intermediate Topical Unverified 08/05/22 13:02 Irritation lactose Allergy Unknown Unverified 08/05/22 13:02 ibuprofen AdvReac Intermediate bloody nose Unverified 08/05/22 13:02 banana Allergy Uncoded 08/05/22 13:02 General Stated Complaint: Abd Prob JUSTO: 3 Review of Systems <Gemma Edmonds DO - Last Filed: 08/10/22 19:09> All systems reviewed & are unremarkable except as noted in HPI and below Constitutional Constitutional: Reports as per HPI, Denies chills and Denies fever(s) Eyes Eyes: Denies blurry vision ENT Ears, Nose, Mouth, and Throat: Denies dizziness, Denies sore throat and Denies throat swelling Cardiovascular Cardiovascular: Denies chest pain and Denies dyspnea Respiratory Respiratory: Denies cough and Denies dyspnea Gastrointestinal Gastrointestinal: Reports abdominal pain, Denies diarrhea, Reports nausea and Denies vomiting Genitourinary Genitourinary: Denies hematuria and Denies dysuria Musculoskeletal Musculoskeletal: Denies back pain and Denies numbness Integumentary/Breasts Skin/Breast: Denies lesions and Denies rash Neurologic Neurologic: Denies dizziness, Denies localized weakness and Denies numbness Allergic/Immunologic Allergic/Immunologic: Denies throat swelling PFSH <Gemma Edmonds DO - Last Filed: 08/10/22 19:09> All Active Problems (Updated 08/07/22 @ 17:54 by Gemma Edmonds DO) Biliary dyskinesia (Acute) Acute epigastric pain (Acute) Abdominal pain (Acute) Fever (Acute) Closed nondisplaced fracture of styloid process of left radius (Acute) Medical History ADHD (attention deficit hyperactivity disorder) GERD (gastroesophageal reflux disease) Surgical History Dilation and curettage Ligation of fallopian tube Glenn Fundoplication S/P appendectomy Social History Smoking/Tobacco Use Status: Former Tobacco Use Smoking risk assessment performed?: Yes Alcohol Intake: current Alcohol Intake frequency: holidays/special occasions only Alcohol type: beer Drug use: Occasionally Substance use type: marijuana Do you feel safe at home: Yes Do you feel safe in your relationship?: Yes Exam <Gemma Edmonds DO - Last Filed: 08/10/22 19:09> Const General: cooperative, healthy appearing and no acute distress Orientation: alert, awake and oriented x3 HENMT Head: normal to inspection Face and sinus: normal facial exam Eyes General: appearance normal, both eyes and all related structures Pupils: PERRL EOM: EOM intact bilaterally Neck Neck: normal visual inspection and No submandibular swelling Lymphatic: no lymphadenopathy noted Chest Chest: normal inspection of the chest and no tenderness Resp Effort & Inspection: normal respiratory effort and able to speak in complete sentences Auscultation: clear to auscultation bilaterally Cardio Rate: regular rate Rhythm: regular rhythm GI Inspection: normal to inspection Palpation: soft, not firm, not rigid and tender in the RUQ Auscultation: hypoactive bowel sounds Back/Spine/Pelvis Thoracic/Lumbar Spine: thoracic and lumbar spine normal to inspection Pelvis: no pain with anterior-posterior compression Skin General skin exam: no rashes or lesions noted Neuro General: patient alert, patient awake and patient oriented x3 Cognition: normal cognition Speech: speech normal Motor: muscle tone normal throughout Sensory Exam: no sensory deficits noted Extrem General: normal to inspection, full ROM, capillary refill normal, no calf tenderness bilaterally and no edema Psych Appearance: grossly normal Mental Status: mental status grossly normal Speech and Movement: speech and movement normal Affect: normal affect Course <Gemma Edmonds DO - Last Filed: 08/10/22 19:09> Vital Signs Vital signs: Vital Signs Pulse 72 08/07/22 15:19 Respiratory Rate 18 08/07/22 15:19 Blood Pressure 119/54 L 08/07/22 15:19 Pulse Oximetry 98 08/07/22 15:19 Pulse 72 08/07/22 15:19 Respiratory Rate 18 08/07/22 15:19 Respiratory Effort Non-Labored 08/07/22 15:23 Blood Pressure 119/54 L 08/07/22 15:19 Pulse Oximetry 98 08/07/22 15:19 Oxygen Delivery Method Room Air 08/07/22 15:19 Oxygen Flow Rate 0 08/07/22 15:19
[2022-08-07 16:08] LABS: Abs Immature Grans 0.04 10^3/uL (0.0-0.06); Absolute Basophil Count 0.07 10^3/uL (0.0-0.2); Absolute Eosinophil Count 0.08 10^3/uL (0.0-0.7); Absolute Lymphocyte Count 3.58 10^3/uL (1.2-3.4); Absolute Monocyte Count 0.78 10^3/uL (0.1-0.8); Basophils % 0.6; Eosinophils % 0.7; HCT 38.2 % (36.0-46.0); HGB 12.9 g/dL (11.2-15.7); Immature Grans % 0.3; Lymphocytes % 30.7; MCH 31.5 pg (27.0-33.0); MCHC 33.8 % (32.0-36.0); MCV 93 fL (80-95); MPV 10.1 fL (8.0-11.0); Monocytes % 6.7; Platelet Count 224 10^3/uL (130-400); RBC 4.09 10^6/uL (3.93-5.22); RDW 11.9 % (11.7-14.6); RDW-SD 41.2 fL; WBC 11.65 10^3/uL (4.4-10.8)
[2022-08-07 16:09] LABS: Absolute Neutrophil Count 7.11 10^3/uL (1.2-6.7)
--- NOTE | 2022-08-07 16:15 | DI.CT_ITS ---
Exam(s) CT ABDOMEN PELVIS W EXAM: CT ABDOMEN PELVIS W INDICATION: RUQ abd pain, r/o SBO, pancreatitis. COMPARISON: CT CT CHEST PE ABD PELVIS W from 08/31/2021 TECHNIQUE: FINDINGS: CT examination of the abdomen and pelvis was performed with intravenous infusion of 100 cc of Omnipaq ue 350. Images obtained through the lung bases are unremarkable. The liver is unremarkable in appearance. Gallbladder has been surgically removed, bile ducts are CT normal. Pancreas appears normal. Spleen is unremarkable in appearance. Adrenals appear normal. The kidneys are unremarkable with no evidence of hydronephrosis, nephrolithiasis, or renal mass.. Ur inary bladder unremarkable. Abdominal aorta is of normal diameter and no major vascular abnormality is seen. No abdominal wall hernia. No abdominal or pelvic adenopathy. SEARCH COORDINATOR structures appear intact with a presumed left corpus luteum or ovarian cyst measuring 17 millimet ers,. Probable prior appendectomy, no evidence of appendicitis period. No evidence of diverticulitis or aury wel obstruction. IMPRESSION: Negative CT examination of the abdomen and pelvis. RADIATION DOSE DELIVERED: Total DLP Total DLP RADIATION OPTIMIZATION: All CT scans at this facility use at least one of these dose optimization te chniques: automated exposure control; mA and/or kV adjustment per patient size (includes targeted exa ms where dose is matched to clinical indication); or iterative reconstruction.
[2022-08-07 16:17] LABS: Bilirubin Negative (Negative); Blood Negative (Negative); Clarity Sl Cloudy (Clear); Glucose Negative (Negative); Ketones Negative (Negative); Leukocyte Esterase Moderate (Negative); Nitrite Negative (Negative); Urobilinogen 0.2 EU/dL (Up TO 0.2)
[2022-08-07 16:23] LABS: ALT 26 U/L (14-59); AST 24 U/L (15-37); Albumin 4.6 g/dL (3.4-5.0); Alkaline Phosphatase 69 U/L (46-116); Anion Gap 10.4 mmol/L (3-11); BUN 12 mg/dL (7-18); Bilirubin, Total 0.6 mg/dL (0.2-1.0); CO2 25.6 mmol/L (21.0-32.0); CREATININE 0.9 mg/dL (0.55-1.02); Chloride 101 mmol/L (98-107); Glucose 90 mg/dL (74-106); Lipase 513 U/L (73-393); Potassium 3.6 mmol/L (3.5-5.1); Sodium 137 mmol/L (136-145)
[2022-08-07 16:26] LABS: Bacteria Moderate HPF (Negative); Casts Negative LPF (Negative); Crystals Negative HPF (Negative); Epithelial Cells Many HPF (Negative); Mucus Negative (Negative); RBC 0-2 HPF (0-2)
[2022-08-07 16:27] LABS: C & S Indicated? No/Sq. Contamination
[2022-08-07] MEDS: Normal Saline 1,000 ML 1000 ML IV (16:44)
[2022-08-07] MEDS: HYDROmorphone 2 MG/ML SYR 0.5 MG IVP (16:45)
[2022-08-07] MEDS: Metoclopramide 10 MG/2 ML VIAL IVP (16:46)
[2022-08-07] MEDS: Normal Saline Flush 10 ML SYR IVP (16:59)
[2022-08-07] MEDS: Normal Saline - Diluent 50 ML VIAL IJ (17:00)
[2022-08-07] MEDS: Omnipaque 350 MG/ML 100 ML BTL IJ (17:00)
--- NOTE | 2022-08-07 17:28 | DI.VRAD_ITS ---
PROCEDURE INFORMATION: Exam: CT Abdomen And Pelvis With Contrast Exam date and time: 08/07/2022 5:11 PM Age: 32 years old Clinical indication: Other: Ruq abd pain, R/O sbo, pancreatitis TECHNIQUE: Imaging protocol: Computed tomography of the abdomen and pelvis with contrast. Contrast material: OMNIPAQUE 350; Contrast volume: 100 ml; Contrast route: INTRAVENOUS (IV); COMPARISON: CT ABDOMEN PELVIS W 08/29/2021 9:29 AM FINDINGS: Liver: Normal. No mass. Gallbladder and bile ducts: The gallbladder is surgically absent. No intra or extrahepatic biliary ductal dilatation. Pancreas: Normal. No ductal dilation. Spleen: Normal. No splenomegaly. Adrenal glands: Normal. No mass. Kidneys and ureters: Prominent left extrarenal pelvis, similar to prior. The right kidney is unremarkable. No hydronephrosis. Stomach and bowel: Postsurgical changes at the GE junction. No obstruction. No mucosal thickening. Appendix: No evidence of appendicitis. Intraperitoneal space: No free air. No significant fluid collection. Vasculature: No abdominal aortic aneurysm. Lymph nodes: Unremarkable. No enlarged lymph nodes. Urinary bladder: Unremarkable as visualized. Reproductive: There is a 1.9 cm peripherally hyperattenuating left ovarian cyst. The uterus is retroverted. Bones/joints: Degenerative changes in the lumbar spine. No acute fracture. Soft tissues: Unremarkable. IMPRESSION: 1. Peripherally hyperattenuating 1.9 cm left ovarian corpus luteal or hemorrhagic cyst. 2. No peripancreatic inflammatory fat stranding. 3. No bowel obstruction. Dictated and Authenticated by: Esther Jennings MD. Ordering:VINNIE Menendez MD
[2022-08-07 17:30] VITALS: TEMP 37
== END 2022-08-07 18:13 | disposition home or self-care (01) ==
PROVIDERS: Emergency Provider Physician Assistant; PCP Internal Medicine
DX: R10.11 Right upper quadrant pain (principal); R74.8 Abnormal levels of other serum enzymes; F90.9 Attention-deficit hyperactivity disorder, unspecified type
CPT/HCPCS: 80053; 81025; 83690; 96361; 96374; 96375; 99285; 74177; 81003; 81015; 85025; 99284; J1170; J2765; J3490

== ENCOUNTER 2022-12-02 13:08 | Emergency (ER) | payer MEDICAID, SELFPAY ==
[2022-12-02 13:13] VITALS: BP 127/88; PULSE 69; RESP 16; TEMP 36.8; O2SAT 100
--- NOTE | 2022-12-02 13:15 | DI.RAD_ITS ---
Exam(s) XR FOOT LT COMPLETE XR ANKLE LT COMPLETE EXAM: XR ANKLE LT COMPLETE and XR left foot complete CLINICAL HISTORY: pain TECHNIQUE: 2D digital imaging was performed of the left foot and ankle. Six images were obtained. AP, lateral and oblique views were obtained. COMPARISON: No priors for comparison. FINDINGS: BONES: No acute fracture is present. No bony destructive lesion is seen. There is a 2 mm density post erior to the distal tibia on the lateral view. This is nonspecific but may represent an old injury. JOINTS:The ankle mortise is normally aligned. SOFT TISSUE: Normal. IMPRESSION: No acute abnormality in the left ankle or left foot. DATA REPOSITORY: RADIATION DOSE DELIVERED:
--- NOTE | 2022-12-02 13:35 | ED.GENADUL_ITS ---
Discharge Plan Disposition Patient Disposition: Home Condition: Stable Discharge Details Clinical Impression: Ankle sprain Primary Care Provider: Sky Jensen ED Provider: Jasson Kurtz Home Meds and New Rx's Prescriptions: Continued epinephrine 0.3 mg/0.3 mL auto-injector 0.3 mg IM DIRECTED PRN Patient Comments: INJECT CONTENTS OF 1 PEN NEEDED FOR ALLERGIC REACTION Discharge Instructions Instructions: Ankle Sprain (ED) Additional Instructions: use the crutches until you can bear weight with minimal pain if not improving next week follow up with your primary care provider if you feel more ill, have severe worsening pain return to the emergency department Stand Alone Forms: Work Release Medical Decision Making 32 yo female comes in with left ankle and foot pain. She states [facility] [place] [facility] [place] [facility] when she slipped and caused her to roll her ankle. Denies loc or hitting her head. She's had pain in the left lateral ankle, left mid foot and left 2 smaller toes since. She arrives stable speaking clearly in no distress. HAs no pain in the left knee, no tenderness in the knee or tibia. She is tender over the lateral malleolus, has full rom in plantar flexion and dorsiflexion of the ankle. HAs tenderness of the lateral mid foot and also two small toes, no visible or palpable deformity. Intact sensation and pulses. Suspect sprain but will xray the ankle and foot to evaluate for possible fractures. No findings on exam to suggest achilles tendon rupture xrays unremarkable, pt stable, discussed results with her, will provide walking boot and crutches to use as needed. ADvised to f/u with pcp if pain continued next week. Differential Diagnosis Differential Diagnosis: sprain, strain, contusion Imaging Data Radiologic Study: Attestation: I personally reviewed and interpreted this imaging study as follows: Imaging: X-Ray My impression: no acute findings foot xray Radiologic Study #2: Attestation: I personally reviewed and interpreted this imaging study as follows: Imaging: X-Ray My impression: no acute findings ankle xray HPI General Date/Time Provider Initiated Documentation: 12/02/22 13:20 . Limitations to Documentation: no limitations . Information obtained by: patient . History of Present Illness 32 year old F presents to the emergency department with the chief complaint of left ankle/foot pain, described as moderate, Quality is described as aching, Patient reports no radiation. Patient started experiencing this day(s) (3) and it has been constant. Rest improves symptom(s), Movement worsens symptoms . Patient notes no other symptoms.. Patient did receive the following treatments prior to arrival, none Related Data Home Medications Medication Instructions Recorded Confirmed epinephrine 0.3 mg/0.3 mL 0.3 mg IM DIRECTED PRN 08/05/22 12/02/22 injection, auto-injector Allergies Allergy/AdvReac Type Severity Reaction Status Date / Time kiwi Allergy Severe Hives Unverified 12/02/22 13:19 lidocaine Allergy Severe Itching Unverified 12/02/22 13:19 adhesive Allergy Intermediate Topical Unverified 12/02/22 13:19 Irritation lactose Allergy Unknown Unverified 12/02/22 13:19 ibuprofen AdvReac Intermediate bloody nose Unverified 12/02/22 13:19 banana Allergy Uncoded 12/02/22 13:19 General Stated Complaint: Orthopedic JUSTO: 4 Review of Systems All systems reviewed & are unremarkable except as noted in HPI and below Constitutional Constitutional: Denies chills, Denies fever(s) and Denies weakness Cardiovascular Cardiovascular: Denies chest pain and Denies dyspnea Respiratory Respiratory: Denies cough and Denies dyspnea Gastrointestinal Gastrointestinal: Denies abdominal pain, Denies nausea and Denies vomiting Integumentary/Breasts Skin/Breast: Denies rash Neurologic Neurologic: Denies weakness PFSH All Active Problems (Updated 12/02/22 @ 14:13 by Jasson Kurtz MD) Ankle sprain (Acute) Biliary dyskinesia (Acute) Acute epigastric pain (Acute) Abdominal pain (Acute) Fever (Acute) Closed nondisplaced fracture of styloid process of left radius (Acute) Medical History ADHD (attention deficit hyperactivity disorder) GERD (gastroesophageal reflux disease) Surgical History Dilation and curettage Ligation of fallopian tube Glenn Fundoplication S/P appendectomy Social History Smoking/Tobacco Use Status: Former Tobacco Use Smoking risk assessment performed?: Yes Alcohol Intake: current Alcohol Intake frequency: holidays/special occasions only Alcohol type: beer Drug use: Occasionally Substance use type: marijuana Do you feel safe at home: Yes Do you feel safe in your relationship?: Yes Exam Const General: no acute distress Orientation: alert HENMT Head: normal to inspection Ears: external ears normal General nose exam: external nose normal Mouth: moist mucous membranes Eyes General: appearance normal, both eyes and all related structures Neck Neck: normal visual inspection Resp Effort & Inspection: normal respiratory effort and able to speak in complete sentences Cardio Rate: regular rate Skin General skin exam: no rashes or lesions noted Neuro General: patient alert and patient oriented x3 Extrem General: normal to inspection, full ROM and capillary refill normal Psych Mental Status: mental status grossly normal Course Vital Signs Vital signs: Vital Signs Temperature 36.8 C 12/02/22 13:13 Pulse 69 12/02/22 13:13 Respiratory Rate 16 12/02/22 13:13 Blood Pressure 127/88 12/02/22 13:13 Pulse Oximetry 100 12/02/22 13:13 Temperature 36.8 C 12/02/22 13:13 Temperature Source Oral 12/02/22 13:13 Pulse 69 12/02/22 13:13 Respiratory Rate 16 12/02/22 13:13 Respiratory Effort Normal 12/02/22 13:17 Blood Pressure 127/88 12/02/22 13:13 Blood Pressure Position Sitting 12/02/22 13:13 Pulse Oximetry 100 12/02/22 13:13 Oxygen Delivery Method Room Air 12/02/22 13:13 Oxygen Flow Rate 0 12/02/22 13:13 Pain Level 6 12/02/22 13:17
--- NOTE | 2022-12-02 17:32 | NUR.NOTE ---
Nursing Note: Accessed patient chart to print provider note to be faxed to [facility] for billing purposes.
== END 2022-12-02 14:32 | disposition home or self-care (01) ==
PROVIDERS: Emergency Provider Emergency Medicine; PCP Internal Medicine
DX: S93.402A Sprain of unspecified ligament of left ankle, initial encounter (principal); W18.49XA Other slipping, tripping and stumbling without falling, initial encounter
CPT/HCPCS: 29505; 29515; 99284; 73610; 73630; 99283

== ENCOUNTER 2023-03-04 07:27 | Emergency (ER) | payer OTHER, MEDICAID, SELFPAY ==
--- NOTE | 2023-03-04 08:19 | DI.RAD_ITS ---
Exam(s) XR CHEST 2V PA LATERAL EXAM: XR CHEST 2V PA LATERAL CLINICAL HISTORY: SOB/COUGH. TECHNIQUE: 2D digital imaging was performed. COMPARISON: No exams were available for comparison FINDINGS: 2 views: Heart size is normal. The mediastinum is not widened. Lungs are clear. No infiltrates nor pleural effusions. IMPRESSION: No acute pulmonary findings. DATA REPOSITORY: RADIATION DOSE DELIVERED:
[2023-03-04 08:55] LABS: Abs Immature Grans 0.06 10^3/uL (0.0-0.06); Absolute Basophil Count 0.07 10^3/uL (0.0-0.2); Absolute Eosinophil Count 0.04 10^3/uL (0.0-0.7); Absolute Lymphocyte Count 1.64 10^3/uL (1.2-3.4); Absolute Monocyte Count 0.75 10^3/uL (0.1-0.8); Absolute Neutrophil Count 11.92 10^3/uL (1.2-6.7); Basophils % 0.5; Eosinophils % 0.3; HGB 13.2 g/dL (11.2-15.7); Immature Grans % 0.4; Lymphocytes % 11.3; MCH 31.5 pg (27.0-33.0); MCHC 34.7 % (32.0-36.0); MCV 91 fL (80-95); MPV 10.3 fL (8.0-11.0); Monocytes % 5.2; Neutrophils % 82.3; Platelet Count 248 10^3/uL (130-400); RBC 4.19 10^6/uL (3.93-5.22); RDW 11.9 % (11.7-14.6); RDW-SD 39.8 fL; WBC 14.48 10^3/uL (4.4-10.8)
[2023-03-04 08:58] LABS: Albumin 4.4 g/dL (3.4-5.0); Alkaline Phosphatase 68 U/L (46-116); Anion Gap 9.2 mmol/L (3-11); BUN 11 mg/dL (7-18); Bilirubin, Total 0.7 mg/dL (0.2-1.0); CO2 26.8 mmol/L (21.0-32.0); CREATININE 0.8 mg/dL (0.55-1.02); Chloride 104 mmol/L (98-107); Estimated GFR 101.59 (mL/min/1.73m2); Glucose 105 mg/dL (74-106); Potassium 3.8 mmol/L (3.5-5.1); Sodium 140 mmol/L (136-145); Total Protein 7.6 g/dL (6.4-8.2)
[2023-03-04 08:59] LABS: ALT 41 U/L (14-59); AST 25 U/L (15-37); Magnesium 1.7 mg/dL (1.8-2.4)
[2023-03-04 09:04] LABS: Bilirubin Negative (Negative); Blood Negative (Negative); Clarity Clear (Clear); Glucose Negative (Negative); Ketones Negative (Negative); Leukocyte Esterase Negative (Negative); Nitrite Negative (Negative); Specific Gravity 1.015 (1.005-1.025); Urobilinogen 0.2 mg/dL (Up to 0.2); pH 8.5 (5-8)
--- NOTE | 2023-03-04 09:10 | W.ED.GENAD ---
Discharge Plan Disposition Patient Disposition: Home Discharge Details Clinical Impression: Nausea vomiting and diarrhea, Headache Primary Care Provider: Sky Jensen ED Provider: Yamileth Worrell Home Meds and New Rx's Prescriptions: New prochlorperazine maleate [Compazine] 10 mg tablet 10 mg PO Q6H PRNQty: 10 0RF Continued epinephrine 0.3 mg/0.3 mL auto-injector 0.3 mg IM DIRECTED PRN Patient Comments: INJECT CONTENTS OF 1 PEN NEEDED FOR ALLERGIC REACTION Discharge Instructions Instructions: Acute Nausea and Vomiting (ED), General Headache (ED) Additional Instructions: Increase fluid hydration Take the Compazine as needed for nausea and headache Take Tylenol as needed for pain Return earlier should you have any new or worsening complaints Your tick panel will likely be back in several days, we will notify you if is positive Stand Alone Forms: Work Release Referrals: Sky Jensen [Primary Care Provider] - Discharge Data Discharge Date/Time-TO BE ENTERED AT DEPARTURE: 03/04/23 10:53 Medical Decision Making Patient appears well and has stable vitals She is alert and oriented Given her persistence of complaints I did order labs, chest x-ray, urinalysis, tick panel Mild leukocytosis 14,000 Pending stool sample at this time, urinalysis does not show evidence of acute abnormality Chest x-ray without evidence of pneumonia Headache has resolved after Compazine, fluids, and patient is requesting discharge home I do not see evidence of bacterial etiology although she does have leukocytosis Very low suspicion for meningitis clinically, did consider pneumonia and urinary tract infection, chest x-ray and urinalysis were clear for obvious infection She is encouraged to follow-up closely Lyme titer pending Return precautions reviewed and patient expressed understanding HPI General Date/Time Provider Initiated Documentation: 03/04/23 09:32. HPI Narrative: This otherwise healthy 32-year-old female presents with report of intermittent low-grade fevers for the past 10 days. She states that she has had headache and felt tired. She denies any stiff neck. Denies known tick bites. States that she has had nausea, vomiting, diarrhea starting today. Denies known sick contacts. Denies any rashes or lesions. Denies cough. Denies any chest pain. Related Data Home Medications Medication Instructions Recorded Confirmed epinephrine 0.3 mg/0.3 mL 0.3 mg IM DIRECTED PRN 08/05/22 12/02/22 injection, auto-injector prochlorperazine maleate 10 mg 10 mg PO Q6H PRN #10 tabs 03/04/23 tablet (Compazine) Previous Rx's Medication Instructions Recorded prochlorperazine maleate 10 mg 10 mg PO Q6H PRN #10 tabs 03/04/23 tablet (Compazine) Allergies Allergy/AdvReac Type Severity Reaction Status Date / Time kiwi Allergy Severe Hives Unverified 12/02/22 13:19 lidocaine Allergy Severe Itching Unverified 12/02/22 13:19 adhesive Allergy Intermediate Topical Unverified 12/02/22 13:19 Irritation lactose Allergy Unknown Unverified 12/02/22 13:19 ibuprofen AdvReac Intermediate bloody nose Unverified 12/02/22 13:19 banana Allergy Uncoded 12/02/22 13:19 General JUSTO: 4 PFSH All Active Problems (Updated 03/04/23 @ 10:34 by GALI Chowdhury) Nausea vomiting and diarrhea (Acute) Headache (Acute) UTI (urinary tract infection) (Acute) Biliary dyskinesia (Acute) Acute epigastric pain (Acute) Abdominal pain (Acute) Fever (Acute) Closed nondisplaced fracture of styloid process of left radius (Acute) Medical History ADHD (attention deficit hyperactivity disorder) GERD (gastroesophageal reflux disease) Surgical History Dilation and curettage Ligation of fallopian tube Glenn Fundoplication S/P appendectomy Social History Smoking/Tobacco Use Status: Former Tobacco Use Smoking risk assessment performed?: Yes Alcohol Intake: current Alcohol Intake frequency: holidays/special occasions only Alcohol type: beer Drug use: Occasionally Substance use type: marijuana Do you feel safe at home: Yes Do you feel safe in your relationship?: Yes Course Lab/Test Results Lab/Test Results: Laboratory Tests Range/Units 03/04/23 03/04/23 03/04/23 08:00 08:00 08:55 WBC (4.4-10.8) 10^3/uL 14.48 H RBC (3.93-5.22) 10^6/uL 4.19 Hgb (11.2-15.7) g/dL 13.2 Hct (36.0-46.0) % 38.0 MCV (80-95) fL 91 MCH (27.0-33.0) pg 31.5 MCHC (32.0-36.0) % 34.7 RDW (11.7-14.6) % 11.9 Plt Count (130-400) 10^3/uL 248 MPV (8.0-11.0) fL 10.3 Immature Gran % 0.4 Neutrophils % 82.3 Lymphocytes % 11.3 Monocytes % 5.2 Eosinophils % 0.3 Basophils % 0.5 Nucleated RBC % (0.0-0.3) % 0.0 Absolute Neutrophils (1.2-6.7) 10^3/uL 11.92 H Absolute Lymphocytes (1.2-3.4) 10^3/uL 1.64 Absolute Monocytes (0.1-0.8) 10^3/uL 0.75 Absolute Eosinophils (0.0-0.7) 10^3/uL 0.04 Absolute Basophils (0.0-0.2) 10^3/uL 0.07 Sodium (136-145) mmol/L 140 Potassium (3.5-5.1) mmol/L 3.8 Chloride (98-107) mmol/L 104 Carbon Dioxide (21.0-32.0) mmol/L 26.8 Anion Gap (3-11) mmol/L 9.2 BUN (7-18) mg/dL 11 Creatinine (0.55-1.02) mg/dL 0.8 Est GFR (CKD-EPI 2020) (mL/min/1.73m2) 101.59 Glucose (74-106) mg/dL 105 Calcium (8.5-10.1) mg/dL 9.0 Magnesium (1.8-2.4) mg/dL 1.7 L Total Bilirubin (0.2-1.0) mg/dL 0.7 AST (15-37) U/L 25 ALT (14-59) U/L 41 Alkaline Phosphatase (46-116) U/L 68 Total Protein (6.4-8.2) g/dL 7.6 Albumin (3.4-5.0) g/dL 4.4 Urine Color (Yellow) Yellow Urine Clarity (Clear) Clear Urine pH (5-8) 8.5 H Ur Specific [place] (1.005-1.025) 1.015 Urine Protein (Negative) mg/dL Negative Urine Ketones (Negative) mg/dL Negative Urine Blood (Negative) Negative Urine Nitrite (Negative) Negative Urine Bilirubin (Negative) Negative Urine Urobilinogen (Up to 0.2) mg/dL 0.2 Ur Leukocyte Esterase (Negative) Negative Urine Glucose (Negative) mg/dL Negative POC- Test(urine) Negative
[2023-03-04] MEDS: Dexamethasone 10 MG/ML VIAL IVP (09:46)
[2023-03-04] MEDS: Normal Saline 1,000 ML 1000 ML IV (09:53)
--- NOTE | 2023-03-04 10:56 | NUR.NOTE ---
triage and discharge documentation not done properly due to downtime. pt provided with discharge paperwork and provided time for questions
[2023-03-05 12:04] LABS: Lyme Ab w Rflx to Lyme Confirm Negative (Negative)
[2023-03-07 20:06] LABS: Anaplasma phagocytophilum Negative (Negative); B. miyamotoi PCR Negative (Negative); Babesia divergens/MO-1 Negative (Negative); Babesia duncani Negative (Negative); Babesia microti Negative (Negative); Ehrlichia chaffeensis Negative (Negative); Ehrlichia ewingii/canis Negative (Negative); Ehrlichia muris eauclairensis Negative (Negative)
== END 2023-03-04 10:53 | disposition home or self-care (01) ==
PROVIDERS: Emergency Provider Physician Assistant; PCP Internal Medicine
DX: R51.9 Headache, unspecified (principal); R19.7 Diarrhea, unspecified; R11.2 Nausea with vomiting, unspecified; R06.02 Shortness of breath; R42 Dizziness and giddiness
CPT/HCPCS: 80053; 81025; 87798; 96361; 96374; 99284; 71046; 81003; 83735; 85025; 86618; J1100

== ENCOUNTER 2023-04-22 10:17 | Emergency (ER) | payer OTHER, MEDICAID, SELFPAY ==
[2023-04-22 10:22] VITALS: BP 127/74; PULSE 69; RESP 14; TEMP 37.1; O2SAT 99
--- NOTE | 2023-04-22 10:30 | DI.RAD_ITS ---
Exam(s) XR ANKLE RT COMPLETE EXAM: XR ANKLE RT COMPLETE CLINICAL HISTORY: pain, injury. TECHNIQUE: 2D digital imaging was performed. Three views. COMPARISON: No exams were available for comparison FINDINGS: BONES: No acute fracture is present. No bony destructive lesion is seen. JOINTS: The ankle mortise is normally aligned. SOFT TISSUE: Normal. IMPRESSION: Unremarkable radiographs of the right ankle. DATA REPOSITORY: RADIATION DOSE DELIVERED:
--- NOTE | 2023-04-22 10:33 | ED.GENADUL_ITS ---
Discharge Plan Disposition Patient Disposition: Home Condition: Stable Discharge Details Chief Complaint: Orthopedic Clinical Impression: Ankle sprain Primary Care Provider: Sky Jensen ED Provider: Roxy Kingsley Home Meds and New Rx's Prescriptions: No Action epinephrine 0.3 mg/0.3 mL auto-injector 0.3 mg IM DIRECTED PRN Patient Comments: INJECT CONTENTS OF 1 PEN NEEDED FOR ALLERGIC REACTION prochlorperazine maleate [Compazine] 10 mg tablet 10 mg PO Q6H PRNQty: 10 0RF Discharge Instructions Instructions: Ankle Sprain (ED) Additional Instructions: Wear splint for comfort. Ice and elevate. Take Tylenol Motrin as needed for pain. Follow-up with orthopedics if not improved. Discharge Data Discharge Physician: Roxy Kingsley Medical Decision Making 33-year-old female presents for evaluation of right ankle pain after injury. She is neurologically intact. X-ray negative for fracture. Patient already has a walking boot. She will use Tylenol or Motrin as needed for pain. She is instructed to ice and elevate. She will follow-up with orthopedics if not improved. HPI General Date/Time Provider Initiated Documentation: 04/22/23 10:28 . HPI Narrative: 33-year-old female presents for evaluation of right ankle pain. Patient states that she was hiking 2 days ago when she stepped on a rock. She states that. She has had persistent pain to both her medial and lateral since the injury. No Achilles pain. No numbness or tingling. She has been wearing a splint that she had at home. She is got decreased motion secondary to pain. Denies any other injuries. Related Data Home Medications Medication Instructions Recorded Confirmed epinephrine 0.3 mg/0.3 mL 0.3 mg IM DIRECTED PRN 08/05/22 12/02/22 injection, auto-injector prochlorperazine maleate 10 mg 10 mg PO Q6H PRN #10 tabs 03/04/23 tablet (Compazine) Previous Rx's Medication Instructions Recorded prochlorperazine maleate 10 mg 10 mg PO Q6H PRN #10 tabs 03/04/23 tablet (Compazine) Allergies Allergy/AdvReac Type Severity Reaction Status Date / Time kiwi Allergy Severe Hives Unverified 12/02/22 13:19 lidocaine Allergy Severe Itching Unverified 12/02/22 13:19 adhesive Allergy Intermediate Topical Unverified 12/02/22 13:19 Irritation lactose Allergy Unknown Unverified 12/02/22 13:19 ibuprofen AdvReac Intermediate bloody nose Unverified 12/02/22 13:19 banana Allergy Uncoded 12/02/22 13:19 General Stated Complaint: Orthopedic JUSTO: 4 Review of Systems Narrative: As in HPI. PFSH All Active Problems (Updated 04/22/23 @ 11:05 by Roxy Kingsley MD) Ankle sprain (Acute) UTI (urinary tract infection) (Acute) Biliary dyskinesia (Acute) Acute epigastric pain (Acute) Abdominal pain (Acute) Fever (Acute) Closed nondisplaced fracture of styloid process of left radius (Acute) Medical History ADHD (attention deficit hyperactivity disorder) GERD (gastroesophageal reflux disease) Surgical History Dilation and curettage Ligation of fallopian tube Glenn Fundoplication S/P appendectomy Social History Smoking/Tobacco Use Status: Former Tobacco Use Smoking risk assessment performed?: Yes Alcohol Intake: current Alcohol Intake frequency: holidays/special occasions only Alcohol type: beer Drug use: Occasionally Substance use type: marijuana Do you feel safe at home: Yes Do you feel safe in your relationship?: Yes Exam Narrative Exam Narrative: General: non-toxic, no respiratory distress, comfortable HEENT: normocephalic, atraumatic, lids and lashes normal, PERRL, EOMI, anicteric sclera, no conjunctival injection, moist oral mucosa Musculoskeletal: Pain palpation of the right medial and lateral malleolus, Achilles intact, no metatarsal tenderness,++ pedal pulses, sensation intact, otherwise full range of motion of arms and legs, no tenderness to palpation. no clubbing, cyanosis, or edema Neurologic: appropriate for age, strength normal Psych: alert and oriented Skin: no petechiae, no lesions, warm and dry Course Vital Signs Vital signs: Vital Signs Temperature 37.1 C 04/22/23 10:22 Pulse 69 04/22/23 10:22 Respiratory Rate 14 04/22/23 10:22 Blood Pressure 127/74 04/22/23 10:22 Pulse Oximetry 99 04/22/23 10:22 Temperature 37.1 C 04/22/23 10:22 Temperature Source Oral 04/22/23 10:22 Pulse 69 04/22/23 10:22 Respiratory Rate 14 04/22/23 10:22 Blood Pressure 127/74 04/22/23 10:22 Blood Pressure Position Sitting 04/22/23 10:22 Pulse Oximetry 99 04/22/23 10:22 Oxygen Delivery Method Room Air 04/22/23 10:22 Oxygen Flow Rate 0 04/22/23 10:22 Pain Level 5 04/22/23 10:22 Comment tylenol guest experience captain 04/22/23 10:22
== END 2023-04-22 11:19 | disposition home or self-care (01) ==
PROVIDERS: Emergency Provider Emergency Medicine Emergency Medical Services; PCP Internal Medicine
DX: S93.401A Sprain of unspecified ligament of right ankle, initial encounter (principal); X58.XXXA Exposure to other specified factors, initial encounter
CPT/HCPCS: 99283; 73610

== ENCOUNTER 2023-05-10 18:26 | Outpatient (CLI) | payer OTHER, SELFPAY ==
[2023-05-10 16:23] LABS: Abs Immature Grans 0.03 10^3/uL (0.0-0.06); Absolute Basophil Count 0.08 10^3/uL (0.0-0.2); Absolute Eosinophil Count 0.17 10^3/uL (0.0-0.7); Absolute Lymphocyte Count 3.84 10^3/uL (1.2-3.4); Absolute Neutrophil Count 7.81 10^3/uL (1.2-6.7); Basophils % 0.6; Eosinophils % 1.3; HCT 38.2 % (36.0-46.0); HGB 12.8 g/dL (11.2-15.7); Immature Grans % 0.2; Lymphocytes % 29.9; MCHC 33.5 % (32.0-36.0); MCV 93 fL (80-95); Monocytes % 7.2; Neutrophils % 60.8; Platelet Count 246 10^3/uL (130-400); RBC 4.13 10^6/uL (3.93-5.22); RDW 11.9 % (11.7-14.6); WBC 12.85 10^3/uL (4.4-10.8)
[2023-05-10 16:24] LABS: Absolute Monocyte Count 0.93 10^3/uL (0.1-0.8)
[2023-05-10 17:29] LABS: ALT 20 U/L (14-59); AST 18 U/L (15-37); Albumin 4.3 g/dL (3.4-5.0); Alkaline Phosphatase 67 U/L (46-116); Amylase 103 U/L (25-115); Anion Gap 11.5 mmol/L (3-11); BUN 14 mg/dL (7-18); Bilirubin, Total 0.4 mg/dL (0.2-1.0); C-Reactive Protein 0.07 mg/dL (0.0-0.3); CO2 24.5 mmol/L (21.0-32.0); CREATININE 0.8 mg/dL (0.55-1.02); Chloride 103 mmol/L (98-107); Estimated GFR 100.96 (mL/min/1.73m2); Glucose 101 mg/dL (74-106); Lipase 96 U/L (16-77); Sodium 139 mmol/L (136-145); Total Protein 7.1 g/dL (6.4-8.2)
[2023-05-13 12:55] LABS: IgA 123 mg/dL (85-499); Interpretation (See Note); Tissue Transglutaminase IgA <1.2 U/mL (<4.0)
== END 2023-05-10 18:27 | disposition home or self-care (01) ==
LOC: LBO 18:26
PROVIDERS: PCP Internal Medicine; Visit Provider Surgery
DX: K82.8 Other specified diseases of gallbladder (principal); R10.13 Epigastric pain; K21.9 Gastro-esophageal reflux disease without esophagitis
CPT/HCPCS: 36415; 80053; 82784; 83516; 83690; 82150; 85025; 86140

== ENCOUNTER → 2023-05-12 03:31 | Outpatient (CLI) | payer OTHER, SELFPAY ==
--- NOTE | 2023-05-12 13:35 | DI.MRI_ITS ---
Exam(s) MR ABDOMEN WO EXAM: MR ABDOMEN WO CLINICAL HISTORY: s/p lap kelsey/ruq pain and vomITING,R10.11,R11.2,R19.7 TECHNIQUE: Multiplanar multisequence MRI of the Abdomen was performed. COMPARISON: CT CT ABDOMEN PELVIS W from 08/07/2022 FINDINGS: Liver: Unremarkable. No evidence of a suspicious hepatic mass. Pancreas: Unremarkable. Gallbladder and Bile Ducts: Status post cholecystectomy. There is no biliary ductal dilatation. No filling defects are seen within the bile ducts to suggest retained stone. Adrenals: Unremarkable. Kidneys: Unremarkable. Spleen: Unremarkable. Bowel: Unremarkable. Aorta: Unremarkable. Soft Tissues: Unremarkable. Bone: Unremarkable. Lymph Nodes: Unremarkable. IMPRESSION: Status post cholecystectomy. There is no biliary ductal dilatation. No filling defects are seen in the bile ducts to suggest a retained stone. DATA REPOSITORY:
== END ==
PROVIDERS: PCP Internal Medicine; Visit Provider Surgery
DX: R10.11 Right upper quadrant pain (principal); R11.2 Nausea with vomiting, unspecified; R19.7 Diarrhea, unspecified; Z90.49 Acquired absence of other specified parts of digestive tract
CPT/HCPCS: 74181

== ENCOUNTER 2023-05-14 08:55 | Day surgery (SDC) | payer OTHER, MEDICAID, SELFPAY ==
--- NOTE | 2023-05-13 19:43 | PDOC.DSDIS_ITS ---
Date of service: 05/14/23 Time of Service: 10:52 Discharge Plan Disposition Patient Disposition: Home Condition: Good Discharge Details Reason For Visit: stomach scope Attending Provider: Sandie Panda Primary Care Provider: Sky Jensen Home Meds and New Rx's Prescriptions: New sucralfate [Carafate] 1 gram tablet 1 g PO QACHS Qty: 120 12RF No Action ondansetron HCl 4 mg tablet 4 mg PO QID PRN (Reason: nausea and vomiting) Qty: 20 1RF pantoprazole [Protonix] 40 mg tablet,delayed release (DR/EC) 40 mg PO DAILY Qty: 30 12RF epinephrine 0.3 mg/0.3 mL auto-injector 0.3 mg IM DIRECTED PRN Patient Comments: INJECT CONTENTS OF 1 PEN NEEDED FOR ALLERGIC REACTION Discharge Instructions Additional Instructions: Post EGD Instruction ?You had anesthesia for your EGD/stomach scope today.? For your safety, please do the following for the next twenty-four (24) hours: Do Not operate a motor vehicle (car, truck, motorcycle, etc.) Do Not drink alcoholic beverages or use any recreational drugs for the first 24 hours or while taking pain medications. The medications in your body may have a reaction that can be dangerous. Do Not make any important decisions or sign any important papers You have just had a gastroscopy (EGD) or upper GI tract examination. It is important for your smooth recovery that you carefully follow the recommendations below. Do not hesitate to call if any questions should arise about your anesthesia, condition, or care. -Symptoms you may experience during the next 24 hours: ?1. Mild abdominal pain or excessive gas or a bloated feeling which improves with rest, liquids, eating? slightly, and walking as tolerated. 2. Drowsiness and/or forgetfulness because of the medications you were given. ?3. Throat numbness for about 1 hour. 4. A sore throat which you can treat with throat lozenges or by gargling with salt water 4-5 times a day. 5. Redness at the site of your IV which you can treat with warm compresses. SPECIAL INSTRUCTIONS: 1. You may resume your previous diet in one hour. We recommend a light meal to start, then progress as tolerated. 2. Restart regular medications in one hour. 3. No aspirin or non-steroidal containing medication for three days. 4. No lifting over 20 pounds or strenuous activity for the first 24 hours after your procedure. After 24 hours there are no restrictions on your activity, but you may feel fatigued for a few days. Findings: Bile reflux Treatment: Continue with lifestyle modifications: no alcohol, tobacco products, Aspirin or NSAID's (ibuprofen, Motrin, Naprosyn, aleve, etc), soda pop/any carbonated beverages, caffeine (including tea & chocolate), and acidic foods, (tomatoes, citrus, onions, peppermints) spicy or fried/fatty foods. Do not lie down for 30 minutes after eating, and do not eat 2 hours prior to bedtime. Avoid wearing tight fitting clothing/ belts. f/u in 4-6 wks (No Fair food!) -Medications: carafate -Continue to follow lifestyle modifications: No alcohol, tobacco products, Aspirin or NSAID's (ibuprofen, Motrin, Naprosyn, aleve, etc).? Try to limit/avoid:? soda pop/any carbonated beverages, caffeine (including tea & chocolate), and acidic foods, (tomatoes, citrus, onions, peppermints) spicy or fried/fatty foods. Do not lie down for 30 minutes after eating, and do not eat 2 hours prior to bedtime. Avoid wearing tight fitting clothing/ belts. Follow up: -My office will send a letter with the results of your biopsy?s in 2-3wks time. Call the office at [phone] (Office) or [phone] (Hospital), or go to the ER right away if you notice any of the followin. Vomiting blood and /or ?coffee ground? material. ?2. Worsening of abdominal pain or cramping. ?3. Trouble with breathing, cough, and/or fever (temperature above 101.5 F). 4. Increasing pain with swallowing. ?5. Chest pain. 6. Any new symptoms. 7. Worsening of the redness at the IV site Stand Alone Forms: Anesthesia Discharge Inst., Ivana Mckoy ([facility]) Activity:: see above Diet:: see above Discharge Orders Discharge Orders: Discharge Order (Routine); Ordered 05/14/23 Ordered By: Sandie Panda DS: Diagnosis Discharge Diagnosis (1) Acute epigastric pain: Start date: 05/14/23 Start time: 10:52 Status: Acute Asessment and Plan: Patient is seen and examined after they are endoscopy.? Patient has minimal sore throat.? They have been able to tolerate liquids.? They do not have any nausea vomiting.? They are not having any chest pain or shortness of breath.? They have been able to pass gas and are not having any abdominal pain or distention.? They have not vomited any blood.? The vital signs have been stable-see nursing notes. We discussed findings on their endoscopy. We reviewed the importance of lifestyle modification-see discharge instructions We reviewed any new medications that the patient may be prescribed-see discharge instructions Patient will either be sent a letter with the biopsy results or follow-up in the office-see discharge instructions. Patient was given explicit instructions to follow-up regarding post endoscopy- refer to discharge Patient verbalized understanding and discharged in stable and satisfactory condition.? See nursing notes. (2) Abdominal pain: Status: Acute Asessment and Plan: Patient is seen and examined after they are endoscopy.? Patient has minimal sore throat.? They have been able to tolerate liquids.? They do not have any nausea vomiting.? They are not having any chest pain or shortness of breath.? They have been able to pass gas and are not having any abdominal pain or distention.? They have not vomited any blood.? The vital signs have been stable-see nursing notes. We discussed findings on their endoscopy. We reviewed the importance of lifestyle modification-see discharge instructions We reviewed any new medications that the patient may be prescribed-see discharge instructions Patient will either be sent a letter with the biopsy results or follow-up in the office-see discharge instructions. Patient was given explicit instructions to follow-up regarding post endoscopy- refer to discharge Patient verbalized understanding and discharged in stable and satisfactory condition.? See nursing notes. (3) Postprandial RUQ pain: Status: Acute (4) GERD (gastroesophageal reflux disease): (5) Duodenogastric reflux of bile: Status: Acute (6) Bile reflux gastritis: Status: Acute
--- NOTE | 2023-05-13 19:56 | W.PM.ENDDOP ---
Date of service: 05/14/23 Time of Service: 10:25 Endoscopy Report DATE OF PROCEDURE: 05/14/23 PRE-OP DIAGNOSIS: epigastric pain POST-OP DIAGNOSIS: other (Bile reflux gastritis-severe) SURGEON: Sandie Panda ANESTHESIA TYPE: General:No Airway ESTIMATED BLOOD LOSS: 2 PATHOLOGY: other COMPLICATIONS: None DISPOSITION: same day PREP: Miralax/Dulcolax PROCEDURE DESCRIPTION: After informed consent was obtained the patient was take to the procedure room and placed in a supine position. Monitors were applied and a time out was done. The patients name, date of , procedure type, allergies to medications and metal in their body was reviewed. A bite block was placed and the patient was sedated. Once sedated and comfortable the gastroscope was advanced through the oropharynx which was grossly normal into the esophagus. The proximal and mid-esophagus were. She has had a previous Glenn. The wrap is intact. There are no esophageal: Erosions/varices/diverticula. There is no bile refluxing up into the esophagus. The GE junction was at 42. The scope was advanced into the stomach and through the pylorus into the 3rd portion of the duodenum. The duodenum was noted to be normal . Biopsies were done of the proximal jejunum. Upon passing the scope through the GE junction/through the wrap, it is noted that her entire stomach is coated in bile. There is diffuse erythema in the antrum, mild. The the scope was retracted back into the stomach and biopsies were done to rule out H. pylori. There were no ulcers. The scope was retroflexed. The cardia and fundus were noted to be normal. The scope was retracted back into the esophagus and biopsies were done of the GE junction to rule out Pinto's. The Z line was regular. The GE junction was at 42 cm. The scope was removed and the patient was woken up and taken back to [facility] in stable condition.
[2023-05-14 09:17] VITALS: BP 117/78; PULSE 61; RESP 16; TEMP 36.3; O2SAT 100
--- NOTE | 2023-05-14 09:23 | ANES.PREOP_ITS ---
General Info Date of Service Date Performed: 05/14/23 Height: 5 ft 10 in Weight: 93.8 kg Body Mass Index (BMI): 29.7 Surgical Procedure: Operation Date: 05/14/23 09:50 Proposed Procedure Side Surgeon p Gastroscopy Sandie Panda, DO Meds Allergies and Home Medications Allergies Allergy/AdvReac Type Severity Reaction Status Date / Time kiwi Allergy Severe Anaphylaxis Unverified 05/14/23 09:16 lidocaine Allergy Severe severe Unverified 05/14/23 09:16 hives adhesive Allergy Intermediate Topical Unverified 05/14/23 09:16 Irritation lactose Allergy Intermediate Diarrhea Unverified 05/14/23 09:16 ibuprofen AdvReac Intermediate bloody nose Unverified 05/14/23 09:16 banana Allergy Intermediate hives Uncoded 05/14/23 09:16 Home Medication Medication Instructions Recorded epinephrine 0.3 mg/0.3 mL 0.3 mg IM DIRECTED PRN 08/05/22 injection, auto-injector ondansetron HCl 4 mg tablet 4 mg PO QID PRN nausea and 05/10/23 vomiting #20 tabs pantoprazole 40 mg tablet,delayed 40 mg PO DAILY #30 tabs 05/10/23 release (Protonix) Current Visit Medications: Current Medications Generic Name Dose Route Start Last Admin Trade Name Freq PRN Reason Stop Dose Admin Ringer's Solution 1,000 mls @ 80 mls/hr 05/14/23 06:00 IV 05/14/23 23:59 [facility]FUSION [facility] IV Miscellaneous Supplies 1 each 05/14/23 06:00 Iv Access IV 05/14/23 23:59 DIRECTED [facility] Ondansetron HCl 4 mg 05/14/23 03:12 Ondansetron 4 Mg/2 Ml Vial IVP 06/13/23 03:11 Q4H PRN PRN Nausea / Vomiting Sodium Chloride 0 ml 05/14/23 06:00 Normal Saline Flush 10 Ml Syr IV 05/14/23 23:59 PRN PRN Sodium Chloride 0 ml 05/14/23 06:00 Normal Saline 10 Ml Vial IJ 05/14/23 23:59 DIRECTED PRN Sterile Water 0 ml 05/14/23 06:00 Water,Injection,Sterile 10 Ml Vial IJ 05/14/23 23:59 DIRECTED PRN PFSH Active Problems Active Problems: Problem Status Onset Code Closed nondisplaced fracture of styloid process of left radius S52.515A Acute epigastric pain R10.13 Abdominal pain R10.9 Fever R50.9 Postprandial RUQ pain R10.11 Medical History Medical History ADHD (attention deficit hyperactivity disorder) Ankle sprain Biliary dyskinesia GERD (gastroesophageal reflux disease) UTI (urinary tract infection) Medical History Comments:: PONV after gallbladder surgery-pt relates this to the type of surgery as all other procedures went fine Surgical History Surgical History Dilation and curettage Hx laparoscopic cholecystectomy Hx of hysterectomy Ligation of fallopian tube Gelnn Fundoplication S/P appendectomy Tobacco Smoking/Tobacco Use Status: Former Tobacco Use Alcohol Alcohol Intake: current Alcohol intake frequency: holidays/special occasions only Alcohol type: beer Substance Use Substance use: Daily Substance use type: marijuana Details: marijuana last used t-1, inhaled Vital Signs and Lab Results Vital Signs Most Recent Vital Signs in EMR: Most Recent Vital Signs Temp Pulse Resp BP Pulse Ox 36.3 C L 61 16 117/78 100 05/14/23 09:17 05/14/23 09:17 05/14/23 09:17 05/14/23 09:17 05/14/23 09:17 Lab Results Blood Type / Crossmatch: No Data to Display Complete Blood Count: White Blood Count 12.85 10^3/uL (4.4-10.8) H 05/10/23 15:58 Red Blood Count 4.13 10^6/uL (3.93-5.22) 05/10/23 15:58 Hemoglobin 12.8 g/dL (11.2-15.7) 05/10/23 15:58 Hematocrit 38.2 % (36.0-46.0) 05/10/23 15:58 Platelet Count 246 10^3/uL (130-400) 05/10/23 15:58 Complete Metabolic Panel: Sodium 139 mmol/L (136-145) 05/10/23 15:58 Potassium 4.0 mmol/L (3.5-5.1) 05/10/23 15:58 Chloride 103 mmol/L (98-107) 05/10/23 15:58 Carbon Dioxide 24.5 mmol/L (21.0-32.0) 05/10/23 15:58 BUN 14 mg/dL (7-18) 05/10/23 15:58 Creatinine 0.8 mg/dL (0.55-1.02) 05/10/23 15:58 Est GFR (CKD-EPI 2020) 100.96 (mL/min/1.73m2) 05/10/23 15:58 Calcium 9.0 mg/dL (8.5-10.1) 05/10/23 15:58 Albumin 4.3 g/dL (3.4-5.0) 05/10/23 15:58 Glucose 101 mg/dL (74-106) 05/10/23 15:58 C-Reactive Protein 0.07 mg/dL (0.0-0.3) 05/10/23 15:58 Liver Function Panel: Alanine Aminotransferase (ALT/SGPT) 20 U/L (14-59) 05/10/23 15: 58 Aspartate Amino Transf (AST/SGOT) 18 U/L (15-37) 05/10/23 15:58 Coagulation Panel: No Data to Display Cardiac Panel: No Data to Display Arterial Blood Gas: No Data to Display Venous Blood Gas: No Data to Display Pancreas Panel: Amylase Level 103 U/L (25-115) 05/10/23 15:58 Lipase 96 U/L (16-77) H 05/10/23 15:58 Thyroid Panel: No Data to Display Infectious Disease: No Data to Display Blood Cultures: No Data to Display Toxicology Panel: No Data to Display Panel: No Data to Display Imaging and Studies Imaging and Studies Study information below may be from another EMR and interpreted by another provider. Please see original notes in EMR for more complete details. Stress Test Summary: 2016: negative for ischemia. Echocardiogram Summary: 2014: LVEF 65%, no sig valve dz. Pulmonary Function Summary: 06/10/21: normal . Anesthesia Assessment and Plan Anesthesia History Personal History: PONV Family History: No Family History of Anesthesia Complications Exercise Tolerance Exercise Tolerance: Metabolic Equivalents>4 Pertinent Negatives Pertinent Negatives: No Symptoms of GERD (active gerd, mild), No Major Cardiovascular Symptoms or Complaints and Other Cardiac & Pulmonary Exam Cardiac Exam: Normal S1/S2 Heart Sounds Pulmonary Exam: Clear Bilateral Breath Sounds Implantable Cardiac Device Does patient have a Pacemaker or an ICD?: No Airway Exam Known Difficult Airway: No Mallampati Class: 2 Mouth Opening: Normal (> 3cm) Thyromental Distance: Greater than 3 cm Neck Range of Motion: Full ROM Neck Circumference: Normal Teeth Condition: Normal Dentition ASA Classification ASA Score: ASA 2 Emergency Case?: No NPO Status NPO Status: NPO Clears >2 hours, Solids >8 hours Status Status: History of Hysterectomy Anesthesia Plan Resuscitation Status: Full Code Anesthesia Technique: General Anesthesia Airway Planned: Natural Airway Monitors Used: Standard Monitors
[2023-05-14 10:02] VITALS: BMI 29.7
[2023-05-14] MEDS: Lactated Ringers 1,000 ML 80 ML IV (10:02)
--- NOTE | 2023-05-14 10:05 | W.ANESVAS ---
Midline Placement Date Performed: 05/14/23 Procedure Time: 10:00 Requesting Provider: Rohit Lao Procedure Location: Day Surgery Unit Sedation Given (Indicate Dose Given): No Sedation given Patient Mental Status: Awake Sterility: Hand Hygiene, Surgical Cap and Alcohol Laterality: Left Insertion Site: Cephalic Midline Device: PowerGlide Pro 18G Catheter Length: 10 cm Midline Procedure Procedure: Vessel accessed with catheter over needle, Guidewire placed with ease and Catheter placed without resistance Dressing: Tegaderm Applied Blood Return: Absent Flushes: Easily Ultrasound: Sterile probe cover and gel used Ultrasound Image Saved?: No Number of Attempts (See previous attempts in note section): 1 Procedure Tolerated: No Complications Procedure Outcome: Successful Procedure Comment:: A few attempts by DSU and myself. visible vessels, but given two attempts with blood return and no cath advancement, midline placed. Performed By: Rohit Lao
--- NOTE | 2023-05-14 10:18 | STOM_PTH ---
PATIENT: Lori Cruz LOC: [facility] U#:[id number] AGE/SX: 33/F ROOM: RE05/14/[address]: Sandie Panda : 1990 BED: DIS: 05/14/2023 SPEC #: [id number] RECD: 05/14/23 13:08 STATUS: RAJNI RE #: [id number] EBENEZER: 05/14/23 10:[address]: Sandie Panda DEPT: Surgical Specimen RECD BY: Yamileth Lange ENTERED: 05/14/23 13:09 SP TYPE: STOMACH OTHR DR: Sky Jensen Tissues: 1 - BIOPSY BOWEL 2 - STOMACH BIOPSY 3 - ESOPHAGUS BIOPSY 4 - ESOPHAGUS BIOPSY Procedures: GROSS AND MICRO LEVEL 4 Comments: [id number]
[2023-05-14 10:27] VITALS: BP 112/66; PULSE 88; RESP 18; TEMP 36.7; O2SAT 95
--- NOTE | 2023-05-14 10:44 | W.ANESPOSTOP ---
Postoperative Evaluation Date, Time and Location Date Performed: 05/14/23 Time Performed: 10:44 Patient Location: Day Surgery Unit Vital Signs Most Recent Imported Vital Signs: Most Recent Vital Signs Temp Pulse Resp BP Pulse Ox 36.7 C 88 18 112/66 95 05/14/23 10:27 05/14/23 10:27 05/14/23 10:27 05/14/23 10:27 05/14/23 10:27 Pain Score Most Recent Pain Score: Most Recent Pain Score Pain Level 0 05/14/23 10:27 Assessment Mental Status: Awake (Alert & Oriented to Patient Baseline) Airway and Respiratory Function: Patent airway with normal (patient baseline) respiratory exam Cardiovascular Function: Hemodynamically Stable Hydration Status: Adequately Hydrated Nausea & Vomiting: No Nausea or Vomiting Pain: Pt. Denies Any Pain Peripheral Nerve Block: Patient did not receive a nerve block
[2023-05-14] MEDS: Sucralfate 1 GM TAB PO (10:49)
[2023-05-14 10:50] VITALS: BP 117/79; PULSE 72; RESP 18; TEMP 36.6; O2SAT 99
== END 2023-05-14 11:11 | disposition home or self-care (01) ==
PROVIDERS: PCP Internal Medicine; Visit Provider Surgery
PROC: 0DJ68ZZ Inspection of Stomach, Via Natural or Artificial Opening Endoscopic (ICD-10-PCS; CPT 43235; principal; 2023-05-14 09:45)
DX: K29.60 Other gastritis without bleeding (principal); R10.13 Epigastric pain; K22.89 Other specified disease of esophagus
CPT/HCPCS: 43239; 76942; 88305; J2405

== ENCOUNTER 2024-01-06 15:34 | Outpatient (REF) | payer OTHER, SELFPAY ==
[2024-01-06 19:21] LABS: Abs Immature Grans 0.01 10^3/uL (0.0-0.06); Absolute Basophil Count 0.06 10^3/uL (0.0-0.2); Absolute Eosinophil Count 0.14 10^3/uL (0.0-0.7); Absolute Lymphocyte Count 2.84 10^3/uL (1.2-3.4); Absolute Monocyte Count 0.71 10^3/uL (0.1-0.8); Absolute Neutrophil Count 4.45 10^3/uL (1.2-6.7); Basophils % 0.7; Eosinophils % 1.7; HCT 39.9 % (36.0-46.0); HGB 13.5 g/dL (11.2-15.7); Immature Grans % 0.1; Lymphocytes % 34.6; MCH 30.6 pg (27.0-33.0); MCHC 33.8 % (32.0-36.0); MCV 91 fL (80-95); MPV 11.1 fL (8.0-11.0); Monocytes % 8.6; Neutrophils % 54.3; Platelet Count 255 10^3/uL (130-400); RBC 4.41 10^6/uL (3.93-5.22); RDW 11.9 % (11.7-14.6); RDW-SD 39.7 fL; WBC 8.21 10^3/uL (4.4-10.8)
[2024-01-06 19:38] LABS: ALT 30 U/L (14-59); AST 22 U/L (15-37); Albumin 4.4 g/dL (3.4-5.0); Alkaline Phosphatase 80 U/L (46-116); Amylase 63 U/L (25-115); Anion Gap 10.4 mmol/L (3-11); BUN 14 mg/dL (7-18); CO2 24.6 mmol/L (21.0-32.0); CREATININE 0.8 mg/dL (0.55-1.02); Chloride 104 mmol/L (98-107); Estimated GFR 100.96 (mL/min/1.73m2); Glucose 95 mg/dL (74-106); Lipase 41 U/L (16-77); Magnesium 2.2 mg/dL (1.8-2.4); Potassium 4.1 mmol/L (3.5-5.1); Sodium 139 mmol/L (136-145); Total Protein 7.8 g/dL (6.4-8.2)
== END 2024-01-06 15:35 | disposition home or self-care (01) ==
LOC: NCHCN 15:34
PROVIDERS: PCP Internal Medicine; Visit Provider Nurse Practitioner Family
DX: R10.9 Unspecified abdominal pain (principal)
CPT/HCPCS: 80053; 83690; 82150; 83735; 85025

== ENCOUNTER 2024-01-07 07:54 | Outpatient (CLI) | payer OTHER, SELFPAY | END 2024-01-07 07:55 | disposition home or self-care (01) | PROVIDERS: PCP Internal Medicine; Visit Provider Nurse Practitioner Family | DX: R10.9 Unspecified abdominal pain (principal) | CPT/HCPCS: 36415; 82533 ==

== ENCOUNTER 2024-01-07 08:08 | Outpatient (CLI) | payer OTHER, SELFPAY ==
[2024-01-11 16:29] LABS: Calprotectin <50.0 mcg/g
== END 2024-01-07 08:09 | disposition home or self-care (01) ==
LOC: LBO 08:09 → LBN 11:19 → NCHCN 11:19
PROVIDERS: PCP Internal Medicine; Visit Provider Nurse Practitioner Family
DX: R19.7 Diarrhea, unspecified (principal)
CPT/HCPCS: 83993; 87177

== ENCOUNTER 2024-05-04 11:56 | Outpatient (REF) | payer OTHER, SELFPAY ==
--- OUTSIDE RECORDS SUMMARY | 2024-05-04 11:57 | XMS_ITS | Encounter Summary ---
Author Organization [facility] Address [address] [place] [address] Care Team Providers Care Audio Visual Project Manager Name Role Phone None, Provider Primary Care Provider Unavailabl e Encounter Details Date Type Department Care Team (Late st Contact Info) Description 09/09/2020 Lab Requisition [facility] Pathology & [place] [address] Outr Resulting Lab, Provider Social History Tobacco Use Types Packs/Day Years Used Date Smoking Tobacco: Never Assessed Interpersonal Safety Answer Date Record ed Physically Hurt Never 07/14/2020 Verbally Threaten Not on file 07/14/2020 Sex and Gender Information Value Date Recorded Sex Assigned at Not on file Gender Identity Not on file Sexual Orientation Not on file documented as of this encounter Plan of Treatment Not on file documented as of this encounter Procedures Procedure Name Priority Date/Time Associated Diagnosis Comments ZZCOVID-19 TEST [facility] PCR Today 09/09/2020 11:20 EST COVID-19 TESTING Routine 09/09/2020 11:2 0 EST documented in this encounter Results * COVID-19 TEST [facility] PCR (09/09/2020 11:20 EST) Swab ENTIRE NASOPHARYNX / Unknown 09/09/2020 11:20 EST 09/09/2020 15:44 EST Provider Outr Resulting Lab MICROBIOLOGY - GENERAL ORDERABLES [facility] [address] [place] [address] * COVID-19 TESTING (09/09/2020 11:20 EST) COVID-19 rt-PCR Result Negative Negative 09/10/2020 21:45 EST [facility] Comment: Negative results do not preclude 2019-nCoV infection and should not be used as the sole basis for treatment or other patient management decisions. Negative results must be combined with clinical observations, patient history, and epidemiological information. This test was developed and its performance characteristics determined by [facility]. It has not been cleared or approved by the US Food and Drug Administration. FDA does not require this test to go through premarket FDA review. This test is used for clinical purposes. It should not be regarded as investigational or for research. This laboratory is certified under the Clinical Laboratory Improvement Amendments (CLIA) as qualified to perform high complexity clinical laboratory testing. This test is based on the CDC COVID-19 Emergency Use Authorization (EUA) assay, with minor modification as defined by the FDA Performed on the [employer] 7 Flex. Performing Lab Quantstudio 7 [facility] Lab 09/10/2020 21:45 EST [facility] Swab 09/09/2020 11:2 0 EST 09/09/2020 15:44 EST Provider Outr Resulting Lab MICROBIOLOGY - GENERAL ORDERABLES [facility] [address] [place] [address] documented in this encounter Visit Diagnoses Not on filedocumented in this encounter Care Teams Audio Visual Project Manager Relationship Specialty Start Date End Date None, Provider PCP - General 10/02/15 documented as of this encounter
--- OUTSIDE RECORDS SUMMARY | 2024-05-04 11:57 | XMS_ITS | Encounter Summary ---
Author Organization [facility] Address [address] [place] [address] Care Team Providers Care Human Resources Records Clerk Name Role Phone None, Provider Primary Care Provider Unavailabl e Encounter Details Date Type Department Care Team (Late st Contact Info) Description 06/10/2021 Lab Requisition [facility] Pathology & Laboratory Medicine - [facility] [address] [place], [place] [id number] Outr Resulting Lab, Provider Social History Tobacco [...] Comments ZZCOVID-19 TEST [facility] PCR Today 06/09/2021 9:00 EDT COVID-19 TESTING Routine 06/09/2021 9:00 EDT documented in this encounter Results * COVID-19 TEST [facility] PCR (06/09/2021 9:00 EDT) Swab ENTIRE NASOPHARYNX / Unknown 06/09/2021 9:00 EDT 06/10/2021 16:03 EDT Provider Outr Resulting Lab MICROBIOLOGY - GENERAL ORDERABLES [facility] [address] [place] [address] * COVID-19 TESTING (06/09/2021 9:00 EDT) [facility] COVID-19 rt-PCR Result Negative Negative 06/11/2021 17:00 EDT [facility] Comment: This test has not been FDA cleared or approved. This test has been authorized by FDA under an EUA for use by authorized laboratories. This test has been authorized only for detection of nucleic acid from 2019-nCoV, not for any other viruses or pathogens. This test is only authorized for the duration of the declaration that circumstances exist justifying the authorization of emergency use of in vitro diagnostic tests for detection and/or diagnosis of 2019-nCoV under section 564(b)(1) of Act, 21 U.S.C ?? 360bbb-3(b) (1), unless the authorization is terminated or revoked sooner. Negative results do not preclude 2019-nCoV infection and should not be used as the sole basis for treatment or other patient management decisions. Negative results must be combined with clinical observations, patient history, and epidemiological information. This test was developed and its performance characteristics determined by [facility]. It has not been cleared or approved [...] testing. This test is based on the [facility] COVID-19 Emergency Use Authorization (EUA) assay, with minor modification as defined by the FDA Performed on the zerobound 7 Flex RT-PCR System. This test was developed and its performance characteristics determined by [facility]. It has not been cleared or approved [...] testing. This test is based on the [facility] COVID-19 Emergency Use Authorization (EUA) assay, with minor modification as defined by the FDA Performed on the zerobound 7 Pro RT-PCR System. Performing Lab [facility] 06/11/2021 17:00 EDT [facility] Swab 06/09/2021 9:00 EDT 06/10/2021 16:03 EDT Provider Outr Resulting Lab MICROBIOLOGY - GENERAL ORDERABLES Performing Organization Address City/State/[facility] Co de Phone Number [facility] [address] [place] [address] documented in this encounter Visit Diagnoses Not on filedocumented in this encounter Care Teams Human Resources Records Clerk Relationship Specialty Start Date End Date None, Provider PCP - General 10/02/15 documented as of this encounter
--- OUTSIDE RECORDS SUMMARY | 2024-05-04 11:57 | XMS_ITS | Encounter Summary ---
Author Organization [facility] Address [address] [place] [address] Care Team Providers Care [place] Seamer Name Role Phone None, Provider Primary Care Provider Unavailabl e Encounter Details Date Type Department Care Team (Late st Contact Info) Description 03/04/2023 Lab Requisition [facility] Pathology & Laboratory Medicine - [facility] [address] [place] [address] Outr Resulting Lab, Provider Social History Tobacco [...] Procedure Name Priority Date/Time Associated Diagnosis Comments LYME AB Routine 03/04/2023 8:00 EDT documented in this encounter Results * LYME AB (03/04/2023 8:00 EDT) Lyme Ab Negative Negative 03/05/2023 11:57 EDT [facility] Blood VENOUS BLOOD / Unknown 03/04/2023 8:00 EDT 03/04/2023 18:07 EDT Provider Outr Resulting Lab IMMUNOLOGY A ND SEROLOGY ORDERABLES [facility] [address] [place] [address] documented in this encounter Visit Diagnoses Not on filedocumented in this encounter Care Teams [place] Seamer Relationship Specialty Start Date End Date None, Provider PCP - General 10/02/15 documented as of this encounter
--- OUTSIDE RECORDS SUMMARY | 2024-05-04 11:57 | XMS_ITS | Encounter Summary ---
Author Organization [facility] Address [address] [place] [id number] Care Team Providers Care Online Health And Fitness Coach Name Role Phone None, Provider Primary Care Provider Unavailabl e Encounter Details Date Type Department Care Team (Late st Contact Info) Description 09/09/2020 Results Only [facility] Lab - Main [address] [id number] Unknown, Provider, Social History Tobacco Use Types Packs/Day Years [...] Procedure Name Priority Date/Time Associated Diagnosis Comments COVID-19 TESTING Routine 09/09/2020 11:2 0 EST documented in this encounter Results * COVID-19 TESTING (09/09/2020 11:20 EST) Performing Lab AB [address] [facility] 09/11/2020 7:53 EST [facility] Comment: RESULT: Quantstudio 7 [facility] Please indicate the Triage Tier2 Test performed or referred by The [address] [address] COVID-19 rt-PCR Result Not Detected Negative 09/11/2020 7:53 EST [facility] Comment: Negative results do not preclude 2019-nCoV infection and should not be used as the sole basis for treatment or other patient management decisions. Negative results must be combined with clinical observations, patient history, and epidemiological information. This test was developed and its performance characteristics determined by [facility]. It has not been cleared [...] defined by the FDA Performed on the [employer] Flex. 09/09/2020 11:2 0 EST 09/09/2020 11:20 EST Provider Unknown MICROBIOLOGY - KAY AL ORDERABLES [facility] [address] [place] [address] documented in this encounter Visit Diagnoses Not on filedocumented in this encounter Care Teams Online Health And Fitness Coach Relationship Specialty Start Date End Date None, Provider PCP - General 10/02/15 documented as of this encounter
--- OUTSIDE RECORDS SUMMARY | 2024-05-04 11:57 | XMS_ITS | Encounter Summary ---
Author Organization [facility] Address [address] [place] [address] Care Team Providers Care Bag Filler Machine Operator Name Role Phone None, Provider Primary Care Provider Unavailabl e Encounter Details Date Type Department Care Team (Late st Contact Info) Description 01/07/2024 Lab Requisition [facility] Pathology & Laboratory Medicine - [facility] [address] [place] [address] Outr Resulting Lab, Provider Social History Tobacco [...] Procedure Name Priority Date/Time Associated Diagnosis Comments CORTISOL Routine 01/07/2024 8:00 EDT documented in this encounter Results * CORTISOL (01/07/2024 8:00 EDT) Cortisol 5 See Note ug/dL 01/07/2024 18:05 EDT [facility] Comment: NOTE: Reference Ranges (from OCD IFU): Collected Before 10:00 AM: ??4 - 23 ug/dL Collected After 5:00 PM: ?2 - 14 ug/dL The results of this assay can be falsely elevated due to the consumption of Biotin. Blood VENOUS BLOOD / Unknown 01/07/2024 8:00 EDT 01/07/2024 17:20 EDT Provider Outr Resulting Lab CHEMISTRY & BLOOD GAS ORDERABLES [facility] [address] [place] [address] documented in this encounter Visit Diagnoses Not on filedocumented in this encounter Care Teams Bag Filler Machine Operator Relationship Specialty Start Date End Date None, Provider PCP - General 10/02/15 documented as of this encounter
--- OUTSIDE RECORDS SUMMARY | 2024-05-04 11:57 | XMS_ITS | Encounter Summary ---
Author Organization [facility] Address [address] [place] [address] Care Team Providers Care Tinsmith Helper Name Role Phone None, Provider Primary Care Provider Unavailabl e Encounter Details Date Type Department Care Team (Late st Contact Info) Description 08/28/2020 Results Only [facility] Lab - Main [address] [id number] Unknown, Provider, Social History Tobacco Use Types [...] Date/Time Associated Diagnosis Comments COVID-19 TESTING Routine 08/28/2020 13:3 7 EST documented in this encounter Results * COVID-19 TESTING (08/28/2020 13:37 EST) Performing Lab AB [address] [facility] 08/30/2020 15:38 [facility] Comment: Please indicate the Triage Tier2 Test performed or referred by The [address] [address] COVID-19 rt-PCR Result Not Detected Negative 08/30/2020 15:38 [facility] Comment: Negative results do not preclude 2019-nCoV infection and should not be used as the sole basis for treatment or other patient management decisions. Negative results must be combined with clinical observations, patient history, and epidemiological information. This test was developed and its performance characteristics determined by [facility]. It has not been cleared or [...] defined by the FDA Performed on the [employer] Flex. 08/28/2020 13:3 7 EST 08/28/2020 19:25 EST Provider Unknown MICROBIOLOGY - GENER AL ORDERABLES Performing Organization Address City/State/[facility] Co de Phone Number [facility] [address] [place] [address] documented in this encounter Visit Diagnoses Not on filedocumented in this encounter Care Teams Tinsmith Helper Relationship Specialty Start Date End Date None, Provider PCP - General 10/02/15 documented as of this encounter
--- OUTSIDE RECORDS SUMMARY | 2024-05-04 11:57 | XMS_ITS | Encounter Summary ---
Author Organization [facility] Address [address] [place] [address] Care Team Providers Care Private Duty Nurse Name Role Phone None, Provider Primary Care Provider Unavailabl e Encounter Details Date Type Department Care Team (Late st Contact Info) Description 10/04/2021 Lab Requisition [facility] Pathology & Laboratory Medicine - [facility] [address] [place], [place] [id number] Outr Resulting Lab, Provider Social History Tobacco [...] Priority Date/Time Associated Diagnosis Comments ZZCOVID-19 TEST [facility] PCR Today 10/03/2021 9:10 EST COVID-19 TESTING Routine 10/03/2021 9:10 EST documented in this encounter Results * COVID-19 TEST [facility] PCR (10/03/2021 9:10 EST) Swab 10/03/2021 9:10 EST 10/04/2021 21:49 EST Provider Outr Resulting Lab MICROBIOLOGY - GENERAL ORDERABLES [facility] [address] [place] [address] * COVID-19 TESTING (10/03/2021 9:10 EST) COVID-19 rt-PCR Result Negative Negative 10/05/2021 15:34 EST [facility] Comment: This test has not [...] developed and its performance characteristics determined by [facility]. It has not been cleared or [...] testing. This test is based on the [facility] COVID-19 Emergency Use Authorization (EUA) assay, with minor modification as defined by the FDA Performed on the [employer] 7 Pro RT-PCR System. Performing Lab [facility] 10/05/2021 15:34 EST [facility] Swab 10/03/2021 9:10 EST 10/04/2021 21:49 EST Provider Outr Resulting Lab MICROBIOLOGY - GENERAL ORDERABLES [facility] [address] [place] [address] documented in this encounter Visit Diagnoses Not on filedocumented in this encounter Care Teams Private Duty Nurse Relationship Specialty Start Date End Date None, Provider PCP - General 10/02/15 documented as of this encounter
--- OUTSIDE RECORDS SUMMARY | 2024-05-04 11:57 | XMS_ITS | Encounter Summary ---
Author Organization [facility] Address [address] [place] [address] Care Team Providers Care Infection Control Rn Name Role Phone None, Provider Primary Care Provider Unavailabl e Encounter Details Date Type Department Care Team (Late st Contact Info) Description 09/25/2020 Lab Requisition [facility] Pathology & Laboratory Medicine - [facility] [address] [place] [address] Outr Resulting Lab, Provider Social History Tobacco [...] Procedure Name Priority Date/Time Associated Diagnosis Comments DO NOT ORDER STANDALONE - BROAD COVID TEST Today 09/25/2020 9:00 EST COVID-19 TESTING Routine 09/25/2020 9:00 EST documented in this encounter Results * DO NOT ORDER STANDALONE - BROAD COVID TEST (09/25/2020 9:00 EST) COVID-19 rt-PCR Result NEGATIVE Negative 09/27/2020 8:27 EST [facility] Comment: 2019-novel Coronavirus (2019-nCoV) not detected by the qRT-PCR assay. Consider testing for other respiratory viruses or re-collecting for 2019-nCoV testing. Note: Optimum timing for peak viral levels during infections caused by 2019-nCoV have not been determined. Collection of multiple specimens from the same patient may be necessary to detect the virus. Limitations Positive results are indicative of active infection with SARS-CoV-2 but do not rule out bacterial infection or co-infection with other viruses. The agent detected may not be the definite cause of disease. In addition, detection of viral RNA may not indicate the presence of infectious virus or that SARS-CoV-2 is the causative agent for clinical symptoms. Negative results do not preclude SARS-CoV-2 infection and should not be used as the sole basis for patient management decisions. Negative results must be combined with clinical observations, patient history, and epidemiological information. False negative results may also occur if amplification inhibitors are present in the specimen or if inadequate numbers of organisms are present in the specimen. Optimum specimen types and timing for peak viral levels during infections caused by SARS-CoV-2 have not been fully determined. Collection of multiple specimens (types and time points) from the same patient may be necessary to detect the virus. The test was validated for use with upper respiratory specimens obtained via nasopharyngeal or oropharyngeal swabs in VTM, UTM, M4, M5, M6, saline, and MTM media. The performance of this test has not been established for other specimens. Specimens collected using other FDA recommended Specimen Collection Materials listed in the FDA COVID-19 [employer] communication (December 14, 2019) are processed with the caveat that they were not all validated for use with this test and the result must be interpreted in this context. Furthermore, a false negative results may occur if a specimen is improperly collected, transported or handled. If the virus mutates in the RT-PCR target region, SARS-CoV-2 may not be detected or may be detected less predictably. Inhibitors or other types of interference may produce a false negative result. An interference study evaluating the effect of common cold medications was not performed. This test is not FDA-cleared but its performance characteristics were established by our CLIA-certified, CAP-accredited, high complexity laboratory in accordance with CLIA regulations, [employer] [place] [employer] (CAP) guidelines (Dec 07, 2019), and FDA guidance (Nov 18, 2019). This test is only for use under the Food and Drug Administration's Emergency Use Authorization. Swab ENTIRE NASOPHARYNX / Unknown 09/25/2020 9:00 EST 09/25/2020 20:51 EST Provider Outr Resulting Lab MICROBIOLOGY - GENERAL ORDERABLES [facility] [place], [place] * COVID-19 TESTING (09/25/2020 9:00 EST) Pathologist [facility] [place] COVID-19 rt-PCR Result NEGATIVE Negative 09/27/2020 9:38 EST [facility] Comment: 2019-novel Coronavirus (2019-nCoV) not detected by the qRT-PCR assay. Consider testing for other respiratory viruses or re-collecting for 2019-nCoV testing. Note: Optimum timing for peak viral levels during infections caused by 2019-nCoV have not been determined. Collection of multiple specimens from the same patient may be necessary to detect the virus. Limitations Positive results are indicative of active infection with SARS-CoV-2 but do not rule out bacterial infection or co-infection with other viruses. The agent detected may not be the definite cause of disease. In addition, detection of viral RNA may not indicate the presence of infectious virus or that SARS-CoV-2 is the causative agent for clinical symptoms. Negative results do not preclude SARS-CoV-2 infection and should not be used as the sole basis for patient management decisions. Negative results must be combined with clinical observations, patient history, and epidemiological information. False negative results may also occur if amplification inhibitors are present in the specimen or if inadequate numbers of organisms are present in the specimen. Optimum specimen types and timing for peak viral levels during infections caused by SARS-CoV-2 have not been fully determined. Collection of multiple specimens (types and time points) from the same patient may be necessary to detect the virus. The test was validated for use with upper respiratory specimens obtained via nasopharyngeal or oropharyngeal swabs in VTM, UTM, M4, M5, M6, saline, and MTM media. The performance of this test has not been established for other specimens. Specimens collected using other FDA recommended Specimen Collection Materials listed in the FDA COVID-19 [employer] communication (December 14, 2019) are processed with the caveat that they were not all validated for use with this test and the result must be interpreted in this context. Furthermore, a false negative results may occur if a specimen is improperly collected, transported or handled. If the virus mutates in the RT-PCR target region, SARS-CoV-2 may not be detected or may be detected less predictably. Inhibitors or other types of interference may produce a false negative result. An interference study evaluating the effect of common cold medications was not performed. This test is not FDA-cleared but its performance characteristics were established by our CLIA-certified, CAP-accredited, high complexity laboratory in accordance with CLIA regulations, [employer] [place] [employer] (CAP) guidelines (Dec 07, 2019), and FDA guidance (Nov 18, 2019). This test is only for use under the Food and Drug Administration's Emergency Use Authorization. Performing Lab [facility] 09/27/2020 9:38 EST [facility] Swab 09/25/2020 9:00 EST 09/25/2020 20:51 EST Provider Outr Resulting Lab MICROBIOLOGY - GENERAL ORDERABLES [facility] [address] [place] [address] [facility] [place], [place] documented in this encounter Visit Diagnoses Not on filedocumented in this encounter Care Teams Infection Control Rn Relationship Specialty Start Date End Date None, Provider PCP - General 10/02/15 documented as of this encounter
--- OUTSIDE RECORDS SUMMARY | 2024-05-04 11:57 | XMS_ITS | Encounter Summary ---
Author Organization [facility] Address [address] [place] [address] Care Team Providers Care Lock Master Name Role Phone None, Provider Primary Care Provider Unavailabl e Encounter Details Date Type Department Care Team (Late st Contact Info) Description 01/08/2024 Lab Requisition [facility] Pathology & Laboratory Medicine - [facility] [address] [place] [address] Outr Resulting Lab, Provider Social History Tobacco [...] Date/Time Associated Diagnosis Comments CORTISOL Routine 01/07/2024 16:02 EDT documented in this encounter Results * CORTISOL (01/07/2024 16:02 EDT) Cortisol 6 See Note ug/dL 01/08/2024 22:28 EDT [facility] Comment: NOTE: Reference Ranges (from OCD IFU): Collected Before 10:00 AM: ??4 - 23 ug/dL Collected After 5:00 PM: ?2 - 14 ug/dL The results of this assay can be falsely elevated due to the consumption of Biotin. Blood VENOUS BLOOD / Unknown 01/07/2024 16:02 EDT 01/08/2024 21:39 EDT Provider Outr Resulting Lab CHEMISTRY & BLOOD GAS ORDERABLES [facility] [address] [place] [address] documented in this encounter Visit Diagnoses Not on filedocumented in this encounter Care Teams Lock Master Relationship Specialty Start Date End Date None, Provider PCP - General 10/02/15 documented as of this encounter
--- OUTSIDE RECORDS SUMMARY | 2024-05-04 11:57 | XMS_ITS | Encounter Summary ---
Author Organization [facility] Address [address] [place] [address] Care Team Providers Care Lead Technician Name Role Phone None, Provider Primary Care Provider Unavailabl e Encounter Details Date Type Department Care Team (Late st Contact Info) Description 09/03/2021 Lab Requisition [facility] Pathology & Laboratory Medicine - [facility] [address] [place] [address] Sandie Panda, DO [address] [place], [place] [id number] Encounter for other general examination Social History Tobacco Use Types Packs/Day Years [...] Procedure Name Priority Date/Time Associated Diagnosis Comments SURGICAL PATHOLOGY Today 09/02/2021 15 :11 EST Encounter for other general examination documented in this encounter Results * SURGICAL PATHOLOGY (09/02/2021 15:11 EST) Note to Patient The following pathology results have been interpreted by your pathologist and may be available to you before your health provider has had the opportunity to review them. Please allow time for your provider to receive these results and explore management options, if applicable. 09/08/2021 10:42 EST [facility] Final Diagnosis A. GALLBLADDER, CHOLECYSTECTOMY: - Chronic cholecystitis. 09/08/2021 10:42 EST [facility] Attestation There was significant resident/fellow involvement in the diagnostic evaluation of this case. By the signature below, the attending physician certifies that they have personally conducted a gross and/or microscopic examination of the described specimens and rendered or confirmed the above diagnosis. 09/08/2021 10:42 [facility] at 1042 Clinical History Biliary dyskinesia 09/08/2021 10:42 [facility] Gross Description A. Received in formalin labelled with proper patient identification (initials O, L) and gallbladder is an intact gallbladder with an attached segment of cystic duct (6.0 x 2.4 x 2.1 cm). A cystic duct lymph node is not present. The serosa is purple-morataya and smooth. The mucosa is dark green, wrinkled and velvety and the wall is 0.1 cm in thickness. The cystic duct lumen is patent and measures 0.1 cm in diameter. The cystic duct margin is inked blue. The lumen is filled with dark green mucinous bile and is absent of gallstones. Two inside outside sales representative sections and the en face cystic duct margin are submitted in A1. GALI AGUILERA(ASC) 09/03/2021 13:50 09/08/2021 10:42 [facility] Resident/Hansel w: Jasson Garcia MD 09/08/2021 10:42 [facility] Performing Lab [facility] 09/08/2021 10:42 [facility] Scanned Images 09/08/2021 10:42 [facility] Tissue ENTIRE GALLBLADDER / Unknown 09/02/2021 15:11 EST 09/03/2021 8:37 EST Sandie Panda DO PATHOLOGY ORDERABLES [facility] [address] [place] [address] documented in this encounter Visit Diagnoses Diagnosis Encounter for other general examination documented in this encounter Care Teams Lead Technician Relationship Specialty Start Date End Date None, Provider PCP - General 10/02/15 documented as of this encounter
--- OUTSIDE RECORDS SUMMARY | 2024-05-04 11:57 | XMS_ITS | Encounter Summary ---
Author Organization [facility] Address [address] [place] [address] Care Team Providers Care Drug Clerk Name Role Phone None, Provider Primary Care Provider Unavailabl e Encounter Details Date Type Department Care Team (Late st Contact Info) Description 01/07/2024 Lab Requisition [facility] Pathology & Laboratory Medicine - [facility] [address] [place] [address] Outr Resulting Lab, Provider Social History Tobacco [...] Procedure Name Priority Date/Time Associated Diagnosis Comments OVA/PARASITE EXAM Routine 01/07/2024 6:30 EDT documented in this encounter Results * OVA/PARASITE EXAM (01/07/2024 6:30 EDT) Parasite No ova and parasites seen. 01/10/2024 13:24 EDT [facility] Feces SPECIMEN FROM RECTUM / Unknown 01/07/2024 6:30 EDT 01/07/2024 21:09 EDT Narrative [facility] - 01/10/2024 13:24 EDT (If Cryptosporidium, Cyclospora, or Microsporidium are suspected, specific tests must be requested.) Single negative specimen does not rule out the possibility of a parasitic infection. Provider Outr Resulting Lab MICROBIOLOGY - GENERAL ORDERABLES [facility] [address] [place] [address] documented in this encounter Visit Diagnoses Not on filedocumented in this encounter Care Teams Drug Clerk Relationship Specialty Start Date End Date None, Provider PCP - General 10/02/15 documented as of this encounter
--- OUTSIDE RECORDS SUMMARY | 2024-05-04 11:57 | XMS_ITS | Encounter Summary ---
Author Organization [facility] Address [address] [place] [address] Care Team Providers Care Utility Appraiser Name Role Phone None, Provider Primary Care Provider Unavailabl e Encounter Details Date Type Department Care Team (Late st Contact Info) Description 06/09/2021 Lab Requisition [facility] Pathology & Laboratory Medicine - [facility] [address] [place] [address] Outr Resulting Lab, Provider Social History Tobacco [...] Procedure Name Priority Date/Time Associated Diagnosis Comments HEPATITIS B SURFACE ANTIBODY Routine 06/09/2021 15:27 EDT documented in this encounter Results * HEPATITIS B SURFACE ANTIBODY (06/09/2021 15:27 EDT) Hep B Surface Ab, Quantitative 63.8 See Note mIU/mL 06/10/2021 9:25 EDT [facility] Comment: Reference Range for Hep B Surface Ab, Quant: Positive: >= 10.0 mIU/mL Negative: ??< 10.0 mIU/mL Patient is presumed to be immune to infection with Hepatitis B Virus. Hep B Surface Ab, Qualitative Positive See Note 06/10/2021 9:25 EDT [facility] Comment: Reference Range for Hep B Surface Ab, Qual: Unvaccinated: ??Negative Vaccinated: ??Positive Blood VENOUS BLOOD / Unknown 06/09/2021 15:27 EDT 06/09/2021 21:10 EDT Provider Outr Resulting Lab CHEMISTRY & BLOOD GAS ORDERABLES [facility] [address] [place] [address] documented in this encounter Visit Diagnoses Not on filedocumented in this encounter Care Teams Utility Appraiser Relationship Specialty Start Date End Date None, Provider PCP - General 10/02/15 documented as of this encounter
--- OUTSIDE RECORDS SUMMARY | 2024-05-04 11:57 | XMS_ITS | Encounter Summary ---
Author Organization [facility] Address [address] [place] [address] Care Team Providers Care Bleach Liquor Maker Name Role Phone None, Provider Primary Care Provider Unavailabl e Encounter Details Date Type Department Care Team (Late st Contact Info) Description 05/14/2023 Lab Requisition [facility] Pathology & Laboratory Medicine - [facility] [address] [place] [address] Sandie Panda, DO [address] [place] [address] Other gastritis without bleeding; Gastro-esophageal reflux disease without esophagitis; Right upper quadrant pain; Epigastric pain Social History Tobacco Use Types Packs/Day Years [...] Date/Time Associated Diagnosis Comments SURGICAL PATHOLOGY Today 05/14/2023 10 :18 EDT Other gastritis without bleeding Gastro-esophageal reflux disease without esophagitis Right upper quadrant pain Epigastric pain documented in this encounter Results * SURGICAL PATHOLOGY (05/14/2023 10:18 EDT) Note to Patient The following pathology results have been interpreted by your pathologist and may be available to you before your health provider has had the opportunity to review them. Please allow time for your provider to receive these results and explore management options, if applicable. 05/17/2023 15:29 [facility] Final Diagnosis A. JEJUNUM, PROXIMAL, BIOPSY: - Small intestinal mucosa with no significant diagnostic abnormalities. B. STOMACH, ANTRUM, BIOPSY: - Antral mucosa with reactive (chemical) gastropathy. - Negative for Helicobacter pylori on H&E stained sections. C. GASTROESOPHAGEAL JUNCTION, BIOPSY: - Squamocolumnar mucosa with mild reactive changes. - Negative for intestinal metaplasia and dysplasia. D. ESOPHAGUS, DISTAL, BIOPSY: - Squamous mucosa with mild reactive changes. 05/17/2023 15:29 [facility] Attestation By the signature below, the attending physician certifies that they have 1) personally conducted a gross and/or microscopic examination of the described specimen(s), and/or personally interpreted the results of laboratory testing of the described specimen(s), and 2) personally rendered or confirmed the above diagnosis. 05/17/2023 15:29 [facility] at 1529 Clinical History Abdominal pain, nausea, GERD 05/17/2023 15:29 [facility] Gross Description A. Received in formalin labelled with proper patient identification (initials O, L) and 1. Proximal jejunum Bx is a single klein tissue (0.4 x 0.2 x 0.2 cm). Submitted intact in A1. B. Received in formalin labelled with proper patient identification (initials O, L) and 2. Antrum Bx is a single klein tissue (0.6 x 0.2 x 0.1 cm). Submitted intact in B1. C. Received in formalin labelled with proper patient identification (initials O, L) and 3. GE junction Bx are 3 klein-white to klein tissues (0.5 x 0.2 x 0.2 cm to 0.3 x 0.2 x 0.1 cm). Entirely submitted in C1. D. Received in formalin labelled with proper patient identification (initials O, L) and 4. Distal esophagus Bx is a single transparent morataya-white wispy tissue (0.5 x 0.5 by less than 0.1 cm). Submitted intact in D1. Addie Collins 05/17/2023 8:19 05/17/2023 15:29 [facility] Performing Lab [facility] 15:29 EDT [facility] Scanned Images 05/17/2023 15:29 EDT [facility] Tissue ESOPHAGEAL STRUCTURE / Unknown 05/14/2023 10:18 EDT 05/14/2023 17:54 EDT Tissue specimen (specimen) STOMACH STRUCTURE / Unknown 05/14/2023 10:18 EDT 05/14/2023 17:54 EDT Tissue specimen (specimen) ESOPHAGEAL STRUCTURE / Unknown 05/14/2023 10:18 EDT 05/14/2023 17:54 EDT Tissue specimen (specimen) ESOPHAGEAL STRUCTURE / Unknown 05/14/2023 10:18 EDT 05/14/2023 17:54 EDT Sandie Panda DO PATHOLOGY ORDERABLES [facility] [address] [place] [address] documented in this encounter Visit Diagnoses Diagnosis Other gastritis without bleeding Gastro-esophageal reflux disease without esophagitis Esophageal reflux Right upper quadrant pain Abdominal pain, right upper quadrant Epigastric pain Abdominal pain, epigastric documented in this encounter Care Teams Bleach Liquor Maker Relationship Specialty Start Date End Date None, Provider PCP - General 10/02/15 documented as of this encounter
--- OUTSIDE RECORDS SUMMARY | 2024-05-04 11:57 | XMS_ITS | Clinical Summary ---
Author Organization [facility] Address [address] [place] [address] Care Team Providers Care Office Automation Clerk Name Role Phone None, Provider Primary Care Provider Unavailabl e Social History Tobacco Use Types Packs/Day Years Used Date Smoking Tobacco: Never Assessed Interpersonal Safety Answer Date Record ed Physically Hurt Never 07/14/2020 Verbally Threaten Not on file 07/14/2020 Sex and Gender Information Value Date Recorded Sex Assigned at Not on file Gender Identity Not on file Sexual Orientation Not on file Plan of Treatment Health Maintenance Due Date Last Done Comments Hepatitis C Screen 1992 Hepatitis B Vaccine (1 of 3 - 19+ 3-dose series) 03/13 COVID-19 Vaccine ( season) 2023 Care Teams Office Automation Clerk Relationship Specialty Start Date End Date None, Provider PCP - General 10/02/15
--- OUTSIDE RECORDS SUMMARY | 2024-05-04 11:57 | XMS_ITS | Encounter Summary ---
Author Organization [facility] Address [address] [place] [address] Care Team Providers Care [employer] Leader Name Role Phone None, Provider Primary Care Provider Unavailabl e Encounter Details Date Type Department Care Team (Late st Contact Info) Description 08/21/2022 Lab Requisition [facility] Pathology & Laboratory Medicine - [facility] [address] [place] [address] Neftali Hicks MD [address] [place] [address] Excessive and frequent menstruation with regular cycle; Dysmenorrhea, unspecified; Moderate cervical dysplasia Social History Tobacco Use Types Packs/Day Years [...] Date/Time Associated Diagnosis Comments SURGICAL PATHOLOGY Today 08/21/2022 11 :49 EST Excessive and frequent menstruation with regular cycle Dysmenorrhea, unspecified Moderate cervical dysplasia documented in this encounter Results * SURGICAL PATHOLOGY (08/21/2022 11:49 EST) Note to Patient The following pathology results have been interpreted by your pathologist and may be available to you before your health provider has had the opportunity to review them. Please allow time for your provider to receive these results and explore management options, if applicable. 08/28/2022 15:07 EST [facility] Final Diagnosis A. UTERUS AND CERVIX, HYSTERECTOMY: - Endometrium: -Proliferative. - Myometrium: -No specific pathologic features. - Cervix: -Transformation zone was multifocal atypical squamous metaplasia. See comment. - Serosa: -No specific pathologic features. 08/28/2022 15:07 [facility] Diagnosis Comment Several foci of squamous metaplasia with cytologic atypia and reactive changes are noted at the transformation zone of the cervix. Based on the immunomorphology, these findings are most in keeping with atypical squamous metaplasia; however, in sharing selected slides with colleagues, some voice the opinion that a high-grade lesion cannot be excluded entirely. The cervix was completed submitted for histologic exam. Correlation with more recent pap tests and gynecologic history is essential. [employer] slides of this case were reviewed at the intradepartmental consultation conference. Immunoperoxidase stains were performed on this case to further characterize the lesion. ANTIBODY(CLONE)(BLO CK):RESULT P16 (E6H4TM, [place]) (A11): Cytoplasmic staining only. Ki67 (MIB-1) (K2, [place]) (A11): Moderate proliferative index. NOTE: One or more of the reagents used in immunoperoxidase testing in this case may not have been cleared or approved by the U.S. Food and Drug Administration (FDA). The FDA has determined that such clearance or approval is not necessary. These tests are used for clinical purposes. They should not be regarded as investigational or for research. These reagents' performance characteristics have been determined by The and/or by the referring laboratory. The positive and negative controls worked appropriately. If immunoperoxidase staining has been performed on alcohol fixed cytology specimens, which has not been fully validated, the assays should be interpreted with caution and correlated with clinical data. This laboratory is certified under the Clinical Laboratory Improvement Amendments of 1988 (CLIA-88) as qualified to perform high complexity clinical laboratory testing. 08/28/2022 15:07 [facility] Attestation By the signature below, the attending physician certifies that they have 1) personally conducted a gross and/or microscopic examination of the described specimen(s), and/or personally interpreted the results of laboratory testing of the described specimen(s), and 2) personally rendered or confirmed the above diagnosis. 08/28/2022 15:07 [facility] at 1507 Clinical History Menorrhagia with reg cycles; dysmenorrhea; BECKY II; clinical diagnosis code: N92.0, N94.6, N87.1 08/28/2022 15:07 [facility] Gross Description A. Received in formalin labelled with proper patient identification (initials O, L) and uterus is a 68.3 g intact, unopened uterus (7.5 cm fundus to cervix by 5.1 cm cornu to cornu by 3.7 cm anterior to posterior). The serosa is smooth and klein-morataya. The cervix (3.2 cm in diameter) is covered by klein morataya ectocervical mucosa and has a slit-like os (1.0 cm in diameter). No obvious lesions are identified. The margin is inked blue. The endocervical canal (2.5 cm in length) is lined by klein, herringbone mucosa. The endometrial cavity (1.9 cm cornu to cornu by 3.6 cm in length) is lined by red-brown, granular endometrium (0.2 cm in maximum thickness). The klein, finely trabeculated myometrium has a maximum is a 1.3 cm. No intramural, submucosal, or subserosal nodules are identified. [employer] Expert sections, to include the entire cervix, are submitted as follows: BLOCK DOMÍNGUEZ A1-A5- cervix from 12 o'clock to 3 o'clock A6-A11- cervix from 3 o'clock to 6 o'clock A12-A16- cervix from 6 o'clock to 9 o'clock A17-A21- cervix from 9 o'clock to 12 o'clock A22-A23- anterior endomyometrium A24-A25- posterior endomyometrium GALI EASLEY(ASCP) 08/24/2022 9:47 08/28/2022 15:07 [facility] Performing Lab [facility] 08/28/2022 15:07 [facility] Scanned Images 08/28/2022 15:07 [facility] Tissue SPECIMEN FROM UTERUS / Unknown 08/21/2022 11:49 EST 08/21/2022 21:12 EST Neftali Hicks MD PATHOLOGY ORDERABLES [facility] [address] [place] [address] documented in this encounter Visit Diagnoses Diagnosis Excessive and frequent menstruation with regular cycle Excessive or frequent menstruation Dysmenorrhea, unspecified Moderate cervical dysplasia Moderate dysplasia of cervix documented in this encounter Care Teams [employer] Relationship Specialty Start Date End Date None, Provider PCP - General 10/02/15 documented as of this encounter
--- OUTSIDE RECORDS SUMMARY | 2024-05-04 11:57 | XMS_ITS | Encounter Summary ---
Author Organization [facility] Address [address] [place] [id number] Care Team Providers Care Pediatric Ophthalmologist Name Role Phone None, Provider Primary Care Provider Unavailabl e Encounter Details Date Type Department Care Team (Late st Contact Info) Description 09/04/2020 Results Only [facility] Lab - Main [address] [id number] Unknown, Provider, Social History Tobacco Use Types [...] Date/Time Associated Diagnosis Comments COVID-19 TESTING Routine 09/04/2020 7:15 EST documented in this encounter Results * COVID-19 TESTING (09/04/2020 7:15 EST) Performing Lab AB [address] [facility] 09/05/2020 19:12 EST [facility] Comment: RESULT: [employer] [facility] Please indicate the Triage TierT2 Test performed or referred by The [address] [address] COVID-19 rt-PCR Result Not Detected Negative 09/05/2020 19:12 EST [facility] Comment: Negative results do not preclude 2019-nCoV infection and should not be used as the sole basis for treatment or other patient management decisions. Negative results must be combined with clinical observations, patient history, and epidemiological information. This test was developed and its performance characteristics determined by [facility]. It has not been cleared [...] defined by the FDA Performed on the [employer] Flex. 09/04/2020 7:15 EST 09/04/2020 11:57 EST Provider Unknown MICROBIOLOGY - KAY AL ORDERABLES Performing Organization Address City/State/[facility] Co de Phone Number [facility] [address] [phone] documented in this encounter Visit Diagnoses Not on filedocumented in this encounter Care Teams Pediatric Ophthalmologist Relationship Specialty Start Date End Date None, Provider PCP - General 10/02/15 documented as of this encounter
--- OUTSIDE RECORDS SUMMARY | 2024-05-04 11:57 | XMS_ITS | Continuity of Care Document ---
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 Role Phone CHACHA SWAIN Primary Care Physician Encounter [facility] FIN NBR [id number] Date(s): 08/21/22 - 08/21/22 [facility] [address] [place] [address]- [place] Encounter Diagnosis Menorrhagia with regular cycle(Discharge Diagnosis) - 08/21/22 Dysmenorrhea(Discharge Diagnosis) - 08/21/22 BECKY II (cervical intraepithelial neoplasia II)(Discharge Diagnosis) - 08/21/22 Discharge Disposition: Home or Self Care Attending Physician: Neftali Hicks MD Admitting Physician: Neftali Hicks MD Allergies, Adverse Reactions, Alerts Substance Reaction Severity Status lidocaine 1 Hives Moderate Active Adhesive Bandage Moderate Active NSAIDs 2 Moderate Active Kiwi Anaphylactic reaction Severe Active Latex Moderate Active Banana Moderate Active 1IV and topical 2nosebleeds, increased menstrual bleeding Assessment and Plan Future Appointments Functional Status 08/21/22 Anti-Embolism Device Activity: In place Anti-Embolism Site Condition: No complic ations 08/21/22 Family Member Travel History No recent t ravel Recent Travel History No recent travel Other exposure to Infectious Disease Non e Medications !-Percocet 5/325 oral tablet 1 tab, Oral, every 4 hr, PRN as needed for pain, X 5 days, # 15 tab, 0 Refill(s), 08/26/22 14:43:00EST, Pharmacy: [facility], 179, cm, 06/26/22 10:07:00 EDT, Height/Length Dosing, 84, kg, 06/26/22 10:07:00 EDT, Weight Dosing Start Date: 08/21/22 Stop Date: 08/26/22 Status: Ordered EPINEPHrine 0.3 mg injectable kit 0.3 mg =, IM, Once, PRN anaphylaxis, # 2 EA, 0 Refill(s) Start Date: 06/26/22 Status: Ordered valACYclovir 1 g oral tablet 1 g = 1 tab, Oral, Daily, PRN other (see comment), symptoms, 0 Refill(s) Start Date: 08/14/22 Status: Ordered Zofran 4 mg oral tablet 4 mg = 1 tab, Oral, every 6 hr, PRN nausea, # 10 tab, 1 Refill(s), Pharmacy: [facility], 179, cm, 06/26/22 10:07:00 EDT, Height/Length Dosing, 84, kg, 06/26/22 10:07:00 EDT, Weight Dosing Start Date: 08/21/22 Stop Date: 08/27/22 Status: Ordered Problem List Condition Confirmation Course Effective Dates Status Health St at[facility] Informant Asthma Confirmed Active Eczema Confirmed Active GERD - Gastro-esophageal reflux disease Confirmed Active Hiatal hernia Confirmed Active Nausea and vomiting 1 Confirmed Active Respiratory symptom 2 Confirmed 06/24/22 Active 1post op 2pt had nasal congestion and cough x1 week neg covid test sx gone now Procedures Procedure Date Related Diagnosis Body Site Status Total Laparoscopic Hysterectomy 1 08/21/22 Completed Appendectomy Completed Bilateral tubal ligation Completed Cholecystectomy Completed Sugey-Glenn operation for hiatal hernia repair with esophagogastroplasty Completed Dissection tonsillectomy and adenoidectomy Completed 1auto-populated from documented surgical case Results Laboratory List Name Date CBC w/ Diff 08/21/22 Urine Qual POCT 08/21/22 SARS-CoV-2 (COVID-19) PCR (GeneXpert) Automated Diff 08/21/22 Most recent to oldest [Reference Range]: 1 WBC [4.8-10.8 K/mcL] 7.3 K/mcL (08/21/22 8:25 AM) RBC [4.20-6.10 Million/mcL] 3.95 Million /mcL *LOW* (08/21/22 8:25 AM) Neutro Auto [42.2-75.2 %] 52.1 % (08/21/22 8:25 AM) Lymph Auto [20.5-51.1 %] 37.6 % (08/21/22 8:25 AM) [place] Auto [1.7-9.3 %] 7.5 % (08/21/22 8:25 AM) Basophil Auto [0.0-0.8 %] 0.8 % (08/21/22 8:25 AM) Baso Absolute [0.0-0.2 K/mcL] 0.1 K/mcL (08/21/22 8:25 AM) MCV [80.0-99.0 fL] 92.9 fL (08/21/22 8:25 AM) MCHC [32.0-36.0 g/dL] 34.6 g/dL (08/21/22 8:25 AM) Lymph Absolute [1.2-3.4 K/mcL] 2.8 K/mcL (08/21/22 8:25 AM) Hct [37.0-52.0 %] 36.7 % *LOW* (08/21/22 8:25 AM) [place] Absolute [0.1-0.6 K/mcL] 0.6 K/mcL (08/21/22 8:25 AM) MCH [27.0-31.0 pg] 32.2 pg *HI* (08/21/22 8:25 AM) Neutro Absolute [1.4-6.5 K/mcL] 3.8 K/mc L (08/21/22 8:25 AM) Hgb [12.0-18.0 g/dL] 12.7 g/dL (08/21/22 8:25 AM) MPV [7.4-10.4 fL] 10.1 fL (08/21/22 8:25 AM) Platelets [130-400 K/mcL] 239 K/mcL (08/21/22 8:25 AM) Eos Absolute [0.0-0.2 K/mcL] 0.1 K/mcL (08/21/22 8:25 AM) RDW-CV [11.5-14.5 %] 12.0 % (08/21/22 8:25 AM) Imm Gran Absolute 0.01 *NA* (08/21/22 8:25 AM) Imm Gran Auto [0.0-0.5 %] 0.1 % (08/21/22 8:25 AM) U Preg POCT [Negative] Negative (08/21/22 8:04 AM) SARS-CoV-2 (COVID-19) PCR (GeneXpert) [N egative] Negative (08/21/22 8:01 AM) 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 No *NA* (08/21/22 8:01 AM) Hospitalized due to COVID-19? No *NA* (08/21/22 8:01 AM) In ICU? No *NA* (08/21/22 8:01 AM) Group care resident? No *NA* (08/21/22 8:01 AM) status? Not *NA* (08/21/22 8:01 AM) Eos, Auto [0.00-3.00 %] 1.90 % (08/21/22 8:25 AM) Vital Signs Most recent to oldest [Reference Range]: 1 2 3 Temperature Temporal Artery [36-38 Deg C] 36 Deg C (08/21/22 4:15 PM) 37 Deg C (08/21/22 12:09 PM) 36.6 Deg C (08/21/22 7:55 AM) Temperature Temporal Artery (DegF) [97.3-100 Deg F] 96.8 Deg F *LOW* (08/21/22 4:15 PM) 98.6 Deg F (08/21/22 12:09 PM) 97.88 Deg F (08/21/22 7:55 AM) Peripheral Pulse Rate [60-100 bpm] 54 bpm *LOW* (08/21/22 4:45 PM) 61 bpm (08/21/22 4:15 PM) 54 bpm *LOW* (08/21/22 4:00 PM) Blood Pressure [90-140/60-90 mmHg] 107/76mmHg (08/21/22 4:45 PM) 107/70mmHg (08/21/22 4:15 PM) 107/70mmHg (08/21/22 4:00 PM) Mean Arterial Pressure, Cuff [65-140 mmHg] 86 mmHg (08/21/22 4:45 PM) 82 mmHg (08/21/22 4:15 PM) 82 mmHg (08/21/22 4:00 PM) Mean Arterial Pressure Cuff 88 mmHg (08/21/22 4:45 PM) 81 mmHg (08/21/22 4:15 PM) 81 mmHg (08/21/22 4:00 PM) Blood Pressure Location Right arm (08/21/22 1:45 PM) Right arm (08/21/22 12:09 PM) Weight 84.000 kg (06/26/22 9:43 AM) Weight Dosing 84.000 kg (06/26/22 9:43 AM) Height 179.000 cm (06/26/22 9:43 AM) Height/Length Dosing 179.000 cm (06/26/22 9:43 AM) Social History Social History Type Response Tobacco Never tobacco user T obacco Use:. Sex Hospital Discharge Instructions Patient Education 08/21/2022 15:18:12 [facility] ([place]) - Total Laparoscopic Hysterectomy Post Operative Discharge Instructions (CUSTOM) [facility] POST OPERATIVE DISCHARGE INSTRUCTIONS: Total Laparoscopic Hysterectomy General: You have just had major surgery. It is normal to feel tired and just worn out over the next severalweeks. You were given a general anesthetic for your procedure. It is normal to have a sore throat after this type of anesthesia along with nausea. You can expect your abdomen to be generally sore for a few days. You can also expect a soreness behind your right shoulder from the gas used in surgery. Getting up and around helps to work out these kinks. Do not drink alcohol or drive after anesthesia or while taking narcotic pain medication. Do not make any major decisions, sign contracts, etc. for twenty- four hours following your surgery. You have several small skin incisions on your abdomen. There is a stitch under the skin that will dissolve on its own over the first few weeks following your surgery. Skin glue is usually used on theskin for the final closure. It looks shiny when it is dry. It will flake off within a few weeks of your surgery. A small amount of vaginal bleeding is normal for several days after this type of surgery. You may shower any time you feel comfortable standing for extended periods of time. Please just letthe water run over your incisions and then pat them dry. Your abdomen is very clean and doesn't need vigorous cleansing. Activity: You are not going to hurt anything by getting up and moving around after surgery. Going to the bathroom, the kitchen, and out to get your mail will not cause any problems with the way you heal after surgery. It is recommended that you put nothing in the vagina for six weeks. At the tip of your vagina thereis a suture line that needs this time to heal. You may notice a yellowish vaginal discharge. It may have some spots of blood mixed in as well. This is part of the normal healing process. It is your tissues healing and your body breaking down the sutures. There are no specific lifting restrictions. Please try to be careful for a couple of weeks and gradually increase your daily activity back to what is baseline for you. Many times with this type of procedure one can return to work within a few weeks depending upon what you do for work. Each person is a little different and you and Dr. Hicks can decide together when it will be best for you to resume your work schedule. If you feel you have recovered to the point that you are ready to return to work, please call the office and let one of the secretaries know. It is typically best to discuss your return to work with your employer and pick a date for your return you both agree upon. Let us know that date and a letter will be provided that can be faxed to your employer clearing you to return to work without restriction on your chosen date. Medication: You had major gynecologic surgery and can expect to have some pain. You should plan to decrease your activities for a few days to allow your body to recover. Expect very little of yourself above basic daily living needs such as getting to and from the bathroom and kitchen. Slowly advance your activities according to how you are doing but remember that your body needs time to recover from the surgery you had. We recommend the following for postop pain control. Ibuprofen is the best medication for your baseline pain control. Taking 600 mg by mouth every 4 hours will help with most of your post-op pain. Taking it with food is best so it does not upset your stomach. Taking it consistently will provide you the greatest pain relief. Tylenol combined with a narcotic: taking one or two tablets every 4 - 6 hours as needed can be helpful for pain you have that is not covered by the ibuprofen. We recommend trying one tablet in an attempt to help with your pain that is at a five or more on the pain scale. If after twenty minutes your pain is still greater than a five, you may take the second tablet. These medications are constipating, can leave you slightly sick to your stomach and do not help with inflammation. Taper this type of medication first and then the ibuprofen. Our office policy is that post-op patients can use narcotics in addition to ibuprofen for up to 5 days. After that, post op pain should be treated with ibuprofen alone and no further prescriptions for narcotics will be provided. Estrogen replacement may be needed if your ovaries were removed. The correct amount can be difficult to know. It is best to start with a low dose at night to help with hot flashes and to increase thedose every few days to help treat menopausal symptoms. If you are getting sick and/or headaches every time you take your estrogen you may be getting too much. If you are having hot flashes through the night and day the dose may be too little. Contact the office and let us know how you are doing, and we will help you adjust your dose. Constipation prevention is very important as you recover from surgery. The decreased activities combined with narcotics can lead to severe constipation. Straining at the time of surgery can put your vaginal repairs at risk of not healing well. You can purchase stool softeners from your local pharmacy that can help prevent constipation. Colace or Senokot S work well to prevent constipation. It is usually best to start one of them twice daily and to decrease the dosing to daily if you are gettingdiarrhea. Putting off starting a stool softener can lead to severe constipation. If you find yourself constipated, you can try Milk of Magnesia to get things moving again. We recommend a 30 ml medicine cup of Milk of Magnesia followed by another in 45 minutes and another 45 minutes after that. Eachdose should be followed by a large glass of water. This should start to work in a few hours to get things moving. Best to do this course in the morning because it typically leads to a few hours that require you to be close to the bathroom. If that does not work you can use magnesium citrate instead. Substitute a 10 oz bottle of Magnesium Citrate for the Milk of Mag and take 3 bottles to get your bowels moving. Again, remember the large glass of water that follows each bottle. Much better to be p roactive with the Colace or Senokot S to avoid this level of severe constipation which puts your repairs at risk. The following pain medications have been recommended for you postoperatively [ ] Ibuprofen 600 mg 1 tablet by mouth every 4 hours for baseline pain control [ ] Percocet 5/325 mg 1 or 2 tablets by mouth every 4 to 6 hours as needed for pain [ ] Tylenol #3 1 or 2 tablets by mouth every 4 to 6 hours as needed for pain [ ] Dilaudid 2 mg 1 or 2 tablets by mouth every 4 to 6 hours as needed for pain [ ] Colace or Senokot S once or twice daily for stool softening [ ] Estradiol 1 mg nightly or [ ] Estradiol 1 mg twice daily Please call the office for any of the following: Fever of 102 degrees or higher If you are noting a marked change in your appetite with increasing nausea Foul smelling or progressive, bloody drainage from the vagina Pain that is not controlled with your pain medications as written You are ready to return to work. If you take good care of yourself after your surgery and give yourbody some time to recover, it is common for you to be able to return to work within a few weeks of your surgery. It usually works best to call your manager business operations if you have one and start the conversation about the timing for your return. Remember that if you had pelvic reconstruction you cannot lift more than 25 pounds for 6 weeks. If your employer can accommodate your restrictions, you can return to work when you feel you can get through your work days. Once you have a plan you can reach out to [employer] and let us know your plans. Coming for an appointment typically is not needed. We can createa return to work note and fax it to your workplace. Post op Appointment: Your postoperative appointment is on @ . If this time does not work for you, please call the office at [phone] Follow Up Care 06/22/2022 18:00:28 With:Neftali Hicks MD Address: [place] [address]- When: Unknown Comments:as scheduled 10/12/22 Discharge instructions * Kasey Pascual: PERFORM Event Display: Discharge Instructions Authored Date: [id number] LESLEY HAYWARD Rodri :1990 Age:32 years Sex:Female Visit Date:08/21/2022 Primary Care Physician: CHACHA SWAIN Hospital Discharge Instructions We would like to thank you for allowing us to assist you with your healthcare needs. The following includes patient education materials and information regarding your injury/illness. After you leave the hospital, you may get your health information including your test results, physician notes and discharge information by accessing your Patient Portal. Your Next Steps Discharge Orders Discharge Diet Instruction, Regular home diet Discharge Follow Up Instructions, 08/21/22 12:14:00 EST, When following are met: Alert and awake, Follow-up appointment as scheduled in 6 weeks. If you are not aware of the appt time please call [phone]. Discharge Patient Instructions, You may have a sore throat and or muscle aches Discharge Patient Instructions, After minor surgery you may feel tired, drowsy, or judgement may beimpaired Discharge Patient Instructions, Do not sign any contracts for 24 hours Discharge Patient Instructions, Do not drive or operate machinery today Discharge Patient Instructions, Plan to rest and relax today Discharge Patient Instructions, Do not make major decisions for 24 hours Scheduled Future Appointments Wednesday 9:15 AM EST ?? Follow Up Appointments Follow Up with??Neftali Hicks MD Why: as scheduled 10/12/22 Where: [facility] [address] [place] [address]- Medications What How Much When Instructions Next Dose New oxyCODONE-acetaminophen (!- Percocet 5/ 325 oral tablet) 1 tab Oral (given by mouth) Every 4 hours as needed for as needed for pain Duration: 5 Days Pickup at [facility] Changed EPINEPHrine (EPINEPHrine 0.3 mg injectable kit) 0.3 Milligrams Intramuscular (in a muscle) Once as needed for anaphylaxis Unchanged valACYclovir (valACYclovir 1 g oral tablet) 1 tab Oral (given by mouth) Every day as needed for other (see comment) symptoms ?? Pharmacy Information [facility]: [address], [place] [id number] [phone] Your Summary Your Care Team Admitting Physician - Neftali Hicks MD Attending Physician - Neftali Hicks MD Primary Care Physician - CHACHA SWAIN Your Diagnosis Menorrhagia with regular cycle Dysmenorrhea BECKY II (cervical intraepithelial neoplasia II) Problems Ongoing - Any problem that you are currently receiving treatment for. Asthma Eczema GERD - Gastro-esophageal reflux disease Hiatal hernia Nausea and vomiting Respiratory symptom Historical - Any problem that you are no longer receiving treatment for. MRSA (Methicillin resistant Staphylococcus aureus) infection Procedures History ???Total Laparoscopic Hysterectomy (08/21/2022)???Appendectomy???Bilateral tubal ligation???Cholecystectomy???Sugey-Glenn operation for hiatal hernia repair with esophagogastroplasty???Dissection tonsillectomy and adenoidectomy Tests Performed/Pending Automated Diff CBC w/ Diff SARS-CoV-2 (COVID-19) PCR (GeneXpert) Urine Qual POCT Discharge Vitals Temperature??(Temporal Artery) 96.8 ??F (36 ??C) Heart Rate??(Peripheral) 61 Blood Pressure?? 107/70?? Allergies Kiwi??(Anaphylactic reaction) Adhesive Bandage Banana Latex NSAIDs lidocaine??(Hives) Education Materials [facility] POST OPERATIVE DISCHARGE INSTRUCTIONS: Total Laparoscopic Hysterectomy General: You have just had major surgery. It is normal to feel tired and just worn out over the next severalweeks. You were given a general anesthetic for your procedure. It is normal to have a sore throat after this type of anesthesia along with nausea. You can expect your abdomen to be generally sore for a few days. You can also expect a soreness behind your right shoulder from the gas used in surgery. Getting up and around helps to work out these kinks. Do not drink alcohol or drive after anesthesia or while taking narcotic pain medication. Do not make any major decisions, sign contracts, etc. for twenty- four hours following your surgery. You have several small skin incisions on your abdomen. There is a stitch under the skin that will dissolve on its own over the first few weeks following your surgery. Skin glue is usually used on theskin for the final closure. It looks shiny when it is dry. It will flake off within a few weeks of your surgery. A small amount of vaginal bleeding is normal for several days after this type of surgery. You may shower any time you feel comfortable standing for extended periods of time. Please just letthe water run over your incisions and then pat them dry. Your abdomen is very clean and doesn't need vigorous cleansing. Activity: You are not going to hurt anything by getting up and moving around after surgery. Going to the bathroom, the kitchen, and out to get your mail will not cause any problems with the way you heal after surgery. It is recommended that you put nothing in the vagina for six weeks. At the tip of your vagina thereis a suture line that needs this time to heal. You may notice a yellowish vaginal discharge. It may have some spots of blood mixed in as well. This is part of the normal healing process. It is your tissues healing and your body breaking down the sutures. There are no specific lifting restrictions. Please try to be careful for a couple of weeks and gradually increase your daily activity back to what is baseline for you. Many times with this type of procedure one can return to work within a few weeks depending upon what you do for work. Each person is a little different and you and Dr. Hicks can decide together when it will be best for you to resume your work schedule. If you feel you have recovered to the point that you are ready to return to work, please call the office and let one of the secretaries know. It is typically best to discuss your return to work with your employer and pick a date for your return you both agree upon. Let us know that date and a letter will be provided that can be faxed to your employer clearing you to return to work without restriction on your chosen date. Medication: You had major gynecologic surgery and can expect to have some pain. You should plan to decrease your activities for a few days to allow your body to recover. Expect very little of yourself above basic daily living needs such as getting to and from the bathroom and kitchen. Slowly advance your activities according to how you are doing but remember that your body needs time to recover from the surgery you had. We recommend the following for postop pain control. Ibuprofen is the best medication for your baseline pain control. Taking 600 mg by mouth every 4 hours will help with most of your post-op pain. Taking it with food is best so it does not upset your stomach. Taking it consistently will provide you the greatest pain relief. Tylenol combined with a narcotic: taking one or two tablets every 4 - 6 hours as needed can be helpful for pain you have that is not covered by the ibuprofen. We recommend trying one tablet in an attempt to help with your pain that is at a five or more on the pain scale. If after twenty minutes your pain is still greater than a five, you may take the second tablet. These medications are constipating, can leave you slightly sick to your stomach and do not help with inflammation. Taper this type of medication first and then the ibuprofen. Our office policy is that post-op patients can use narcotics in addition to ibuprofen for up to 5 days. After that, post op pain should be treated with ibuprofen alone and no further prescriptions for narcotics will be provided. Estrogen replacement may be needed if your ovaries were removed. The correct amount can be difficult to know. It is best to start with a low dose at night to help with hot flashes and to increase thedose every few days to help treat menopausal symptoms. If you are getting sick and/or headaches every time you take your estrogen you may be getting too much. If you are having hot flashes through the night and day the dose may be too little. Contact the office and let us know how you are doing, and we will help you adjust your dose. Constipation prevention is very important as you recover from surgery. The decreased activities combined with narcotics can lead to severe constipation. Straining at the time of surgery can put your vaginal repairs at risk of not healing well. You can purchase stool softeners from your local pharmacy that can help prevent constipation. Colace or Senokot S work well to prevent constipation. It is usually best to start one of them twice daily and to decrease the dosing to daily if you are gettingdiarrhea. Putting off starting a stool softener can lead to severe constipation. If you find yourself constipated, you can try Milk of Magnesia to get things moving again. We recommend a 30 ml medicine cup of Milk of Magnesia followed by another in 45 minutes and another 45 minutes after that. Eachdose should be followed by a large glass of water. This should start to work in a few hours to get things moving. Best to do this course in the morning because it typically leads to a few hours that require you to be close to the bathroom. If that does not work you can use magnesium citrate instead. Substitute a 10 oz bottle of Magnesium Citrate for the Milk of Mag and take 3 bottles to get your bowels moving. Again, remember the large glass of water that follows each bottle. Much better to be p roactive with the Colace or Senokot S to avoid this level of severe constipation which puts your repairs at risk. The following pain medications have been recommended for you postoperatively [ ] Ibuprofen 600 mg 1 tablet by mouth every 4 hours for baseline pain control [ ] Percocet 5/325 mg 1 or 2 tablets by mouth every 4 to 6 hours as needed for pain [ ] Tylenol #3 1 or 2 tablets by mouth every 4 to 6 hours as needed for pain [ ] Dilaudid 2 mg 1 or 2 tablets by mouth every 4 to 6 hours as needed for pain [ ] Colace or Senokot S once or twice daily for stool softening [ ] Estradiol 1 mg nightly or [ ] Estradiol 1 mg twice daily Please call the office for any of the following: Fever of 102 degrees or higher If you are noting a marked change in your appetite with increasing nausea Foul smelling or progressive, bloody drainage from the vagina Pain that is not controlled with your pain medications as written You are ready to return to work. If you take good care of yourself after your surgery and give yourbody some time to recover, it is common for you to be able to return to work within a few weeks of your surgery. It usually works best to call your manager business operations if you have one and start the conversation about the timing for your return. Remember that if you had pelvic reconstruction you cannot lift more than 25 pounds for 6 weeks. If your employer can accommodate your restrictions, you can return to work when you feel you can get through your work days. Once you have a plan you can reach out to [employer] and let us know your plans. Coming for an appointment typically is not needed. We can createa return to work note and fax it to your workplace. Post op Appointment: Your postoperative appointment is on @ . If this time does not work for you, please call the office at [phone] Patient Name:LESLEY HAYWARD I have received this information and my questions have been answered. 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 The patient presents for surgery with??struggles surrounding menorrhagia. ??We had plans to move forward with surgery??in June but unfortunately she came down with COVID and her case was delayed. ??She has had no other major changes in her medical history since that time. ??Her??history is as follows: ?? She has failed the oral contraceptive pill and had issues with the Mirena IUD as well. Her menses are regular but heavy enough when they come the she needs to change a tampon and a pad every 90 minutes. It often makes it a struggle to go to work. The issue sees no improvement taking scheduled nonsteroidal therapy. She also recently had an abnormal Pap smear that was low-grade with an inability to rule out high-grade dysplasia. Her colposcopic exam was remarkable for an area of acetowhiteningthat returned with the biopsy findings of chronic inflammation without dysplasia. This leaves some concern that she may have dysplasia higher up in her cervix or elsewhere that is yet undiscovered. With discrepant findings further evaluation with a LEEP or conization is indicated. She would like toconsider having her uterus removed. On transabdominal imaging the uterus measures 6.96 x 3.37 cm and transvaginal imaging notes the uterus to be 4.24 cm wide. The endometrial lining measures 5 mm. No intracavitary lesions are appreciated. The bilateral adnexal structures are multicystic but otherwise within normal limits. Review of Systems Constitutional:?No??fevers,?No??chills,?No??sweats Eye:?No??recent visual problems ENT:?No??ear pain,?No??nasal congestion,?No??sore throat Respiratory:?No??shortness of breath,?No??cough Cardiovascular:?No??Chest pain,?No??palpitations,?No??syncope Gastrointestinal:?Nonausea,?No??vomiting,?No??diarrhea Genitourinary:?No??hematuria Dewey/Lymph:?No??bruising tendency,?No??swollen lymph glands Endocrine:?No??excessive thirst,??No??excessive hunger Musculoskeletal:??No??back pain,??No??neck pain,??No??joint pain,??No??muscle pain,??No??decreased range of motion Integumentary:?No??rash,?No??pruritus,?No??abrasions Neurologic: Alert & oriented X 4 Psychiatric:?No??anxiety,?No??depression Physical Exam [facility] General Physical Exam:?? GENERAL??Healthy woman appearing her age,??No apparent distress,??Reasonable historian. HEENT??PERRL,??No cervical LAD,??No thyromegally. RESPIRATORY??Clear to auscultation bilaterally.. CARDIAC??Regular rate and rhythm.,??No murmur or rub.. ABDOMEN??Soft, nontender.,??No palpable masses or organomegally.,??No palpable hernia in the umbilicus or bilate Previous laparoscopic incisional scar in theumbilicus.??ral groins.. EXTREMITIES??Grossly normal exam.. MUSCULOSKELETAL??Grossly normal strength bilaterally.. DERMATOLOGIC??Grossly normal exam.. NEUROLOGIC??No focal or gross weakness.,??Strength is symmetric bilaterally..?? Assessment/Plan 1. Menorrhagia with regular cycle - N92.0 (Primary) ?? 2. Dysmenorrhea - N94.6 ?? 3. 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 The patient does not have a treatable lesion inside the uterine cavity that would lead to any significant improvement. For this reason she would need to consider the ablation or hysterectomy to help improve the menorrhagia. She also has discrepant findings with her Pap smear and colposcopic exam. Further work-up in that regard would require a LEEP or conization. After reviewing these options and considering doing a LEEP along with an ablation versus removal ofthe uterus, the patient would like to have her uterus removed. I agree that this approach would be best for her overall. I have not had great long-term luck with the ablation in terms of satisfactionwith patient's this age getting to the menopause without further intervention. Removing the cervix and uterus would also definitively treat her issue with cervical dysplasia. Having confirmed our plan we??made a plan when I saw her last??in April??to proceed with surgery. ??She has had no major changes in her medical history since the time of that visit aside from the COVID infection.?We reviewed the following preoperative counseling??and she has no questions this morning prior to her surgery. ?? We have decided to proceed with total laparoscopic hysterectomy. Initially we discussed how the surgery is done. Patients with this type of surgery require general anesthesia. They are then positioned in stirrups and a special uterine manipulator is placed. Laparoscopic ports are then inserted and the abdomen is insufflated. We then survey the upper and lower abdomen. The remainder of the surgery is then performed laparoscopically. Typically the fallopian tubes are removed, the broad ligament structures are taken down, the bladder is moved out of the way and with upward traction on the uterus the ureters are moved our the way as well. The bilateral uterine vessels are then taken down as are the uterosacral structures. A colpotomy incision is then created using the Harmonic scalpel or monopolar cautery. This allows the uterus to be removed and the uterus is then taken down and out of the vagina typically. The vagina can then be closed from below, vaginally, or it can be closed laparoscopically. Typically the laparoscopic vaginal closure is done with a barbed suture. After noting he mostasis throughout the CO2 gas is released and the ports are removed. Skin glue is placed on the abdominal incisions and the patient is then taken to the PACU in stable condition for recovery. Many patients are discharged that same day after the surgery but occasionally some need to stay overnight. I spent some time reviewing the risks related to the procedure. These include bleeding, infection,and damage to surrounding pelvic organs. I also reviewed how removal of the uterus can effect patient's sexually. There is also some risk of changing the support of the apex of the vagina.? Problem List/Past Medical History Ongoing Asthma Eczema GERD - Gastro-esophageal reflux disease Hiatal hernia Nausea and vomiting Respiratory symptom Historical MRSA (Methicillin resistant Staphylococcus aureus) infection Procedure/Surgical History ???Appendectomy???Bilateral tubal ligation???Cholecystectomy???Sugey-Glenn operation for hiatal hernia repair with esophagogastroplasty???Dissection tonsillectomy and adenoidectomy Medications Inpatient No active inpatient medications Home EPINEPHrine 0.3 mg injectable kit, 0.3 mg, IM, Once, PRN valACYclovir 1 g oral tablet, 1 g= 1 tab, Oral, Daily, PRN Allergies Kiwi??(Anaphylactic reaction) Adhesive Bandage Banana Latex NSAIDs lidocaine??(Hives) Social History Alcohol Current, 1-2 times per year Electronic Cigarette/Vaping Electronic Cigarette Use: Never. Substance Use Current, Marijuana, Daily Tobacco Never tobacco user Tobacco Use:. Electronically Signed on 08/21/22 05:37 AM Neftali Hicks MD Patient Care team information Personnel Name: CHACHA SWAIN Address: Address: [address] [place] [address]- [place]
--- OUTSIDE RECORDS SUMMARY | 2024-05-04 11:57 | XMS_ITS | Encounter Summary ---
Author Organization [facility] Address [address] [place] [address] Care Team Providers Care Swing Frame Grinder Operator Name Role Phone None, Provider Primary Care Provider Unavailabl e Encounter Details Date Type Department Care Team (Late st Contact Info) Description 06/10/2021 Lab Requisition [facility] Pathology & Laboratory Medicine - [facility] [address] [place] [address] Outr Resulting Lab, Provider Social History Tobacco [...] Procedure Name Priority Date/Time Associated Diagnosis Comments QUANTIFERON MITOGEN (PERFORMABLE) Today 06/09/2021 15:27 EDT QUANTIFERON TB2 (PERFORMABLE) Today 06/09/2021 15:27 EDT QUANTIFERON TB1 (PERFORMABLE) Today 06/09/2021 15:27 EDT QUANTIFERON NIL (PERFORMABLE) Today 06/09/2021 15:27 EDT QUANTIFERON INTERPRETATION (PERFORMABLE) Today 06/09/2021 15:27 EDT QUANTIFERON TB GOLD PLUS Routine 06/09/2021 15:27 EDT documented in this encounter Results * QUANTIFERON INTERPRETATION (PERFORMABLE) (06/09/2021 15:27 EDT) Quantiferon Interpretation Negative Negative 06/11/2021 12:01 EDT [facility] Comment:No interferon-gamma response to M. tuberculosis antigens was detected. ??Infection with M. tuberculosis is unlikely. A single negative result does not exclude infection with M. tuberculosis. ??In patients at high risk for M. tuberculosis infection, a second test should be considered. TB1 Ag minus Nil 0.07 IU/ml 06/11/20 12:01 EDT [facility] TB2 Ag minus Nil 0.02 IU/mL 06/11/20 12:01 EDT [facility] Blood VENOUS BLOOD / Unknown 06/09/2021 15:27 EDT 06/11/2021 11:30 EDT Narrative [facility] - 06/11/2021 12:01 EDT Results were obtained with the [employer] QuantiFERON-TB Gold Plus CLIA. New platform in use 05/28/2021 Provider Outr Resulting Lab IMMUNOLOGY A ND SEROLOGY ORDERABLES Performing Organization Address [facility] de Phone Number [facility] [address] [place] [address] * QUANTIFERON MITOGEN (PERFORMABLE) (06/09/2021 15:27 EDT) Blood VENOUS BLOOD / Unknown 06/09/2021 15:27 EDT 06/10/2021 16:31 EDT Provider Outr Resulting Lab IMMUNOLOGY A ND SEROLOGY ORDERABLES Performing Organization Address City/[facility] Co de Phone Number [facility] [address] [place] [address] * QUANTIFERON TB2 (PERFORMABLE) (06/09/2021 15:27 EDT) Blood VENOUS BLOOD / Unknown 06/09/2021 15:27 EDT 06/10/2021 16:31 EDT Provider Outr Resulting Lab IMMUNOLOGY A ND SEROLOGY ORDERABLES Performing Organization Address [facility] Co de Phone Number [facility] [address] [place] [address] * QUANTIFERON TB1 (PERFORMABLE) (06/09/2021 15:27 EDT) Blood VENOUS BLOOD / Unknown 06/09/2021 15:27 EDT 06/10/2021 16:31 EDT Provider Outr Resulting Lab IMMUNOLOGY A ND SEROLOGY ORDERABLES Performing Organization Address [facility] Co de Phone Number [facility] [address] [place] [address] * QUANTIFERON NIL (PERFORMABLE) (06/09/2021 15:27 EDT) Blood VENOUS BLOOD / Unknown 06/09/2021 15:27 EDT 06/10/2021 16:31 EDT Provider Outr Resulting Lab IMMUNOLOGY A ND SEROLOGY ORDERABLES Performing Organization Address [facility] Co de Phone Number [facility] [address] [place] [address] documented in this encounter Visit Diagnoses Not on filedocumented in this encounter Care Teams Swing Frame Grinder Operator Relationship Specialty Start Date End Date None, Provider PCP - General 10/02/15 documented as of this encounter
--- OUTSIDE RECORDS SUMMARY | 2024-05-04 11:57 | XMS_ITS | Encounter Summary ---
Author Organization [facility] Address [address] [place] [address] Care Team Providers Care Machine Precision Engraver Name Role Phone None, Provider Primary Care Provider Unavailabl e Encounter Details Date Type Department Care Team (Late st Contact Info) Description 12/15/2021 Lab Requisition [facility] Pathology & Laboratory Medicine - [address] [id number] Outr Resulting Lab, Provider Social History Tobacco [...] Comments ZZCOVID-19 TEST [facility] PCR Today 12/15/2021 9:00 EDT COVID-19 TESTING Routine 12/15/2021 9:00 EDT documented in this encounter Results * COVID-19 TEST [facility] PCR (12/15/2021 9:00 EDT) Swab 12/15/2021 9:00 EDT 12/16/2021 16:32 EDT Provider Outr Resulting Lab MICROBIOLOGY - GENERAL ORDERABLES [facility] [address] [place] [address] * COVID-19 TESTING (12/15/2021 9:00 EDT) COVID-19 rt-PCR Result Negative Negative 12/17/2021 11:58 EDT [facility] Comment: This test has not [...] clinical observations, patient history, and epidemiological information. Testing was performed using the nas SARS-CoV-2 assay ([employer] on the Nas 6800 System Performing Lab Nas [address] [facility] 12/17/2021 11:58 EDT [facility] Swab 12/15/2021 9:00 EDT 12/16/2021 16:32 EDT Provider Outr Resulting Lab MICROBIOLOGY - GENERAL ORDERABLES [facility] [address] [place] [address] documented in this encounter Visit Diagnoses Not on filedocumented in this encounter Care Teams Machine Precision Engraver Relationship Specialty Start Date End Date None, Provider PCP - General 10/02/15 documented as of this encounter
--- OUTSIDE RECORDS SUMMARY | 2024-05-04 11:57 | XMS_ITS | Continuity of Care Document ---
Author Organization [facility] Address [address] [place] [address] Care Team Providers Care History Professor Name Role Phone CHACHA SWAIN Primary Care Physician Encounter [facility] NBR [id number] Date(s): 10/12/22 - 10/12/22 [facility] [address] [place] [address]- Encounter Diagnosis Postoperative examination(Discharge Diagnosis) - 10/12/22 Hx of hysterectomy for benign disease(Discharge Diagnosis) - 10/12/22 History of cervical dysplasia(Discharge Diagnosis) - 10/12/22 Discharge Disposition: Home or Self Care Attending Physician: Neftali Hicks MD Allergies, Adverse Reactions, Alerts Substance Reaction Severity Status lidocaine 1 Hives Moderate Active Adhesive Bandage Moderate Active NSAIDs 2 Moderate Active Kiwi Anaphylactic reaction Severe Active Latex Moderate Active Banana Moderate Active 1IV and topical 2nosebleeds, increased menstrual bleeding Assessment and Plan Future Appointments Functional Status 10/12/22 Family Member Travel History No recent t ravel Recent Travel History No recent travel Other exposure to Infectious Disease Non e Medications EPINEPHrine 0.3 mg injectable kit 0.3 mg =, IM, Once, PRN anaphylaxis, # 2 EA, 0 Refill(s) Start Date: 06/26/22 Status: Ordered valACYclovir 1 g oral tablet 1 g = 1 tab, Oral, Daily, PRN other (see comment), symptoms, 0 Refill(s) Start Date: 08/14/22 Status: Ordered Problem List Condition Confirmation Course Effective Dates Status Health St atus Informant Asthma Confirmed Active Eczema Confirmed Active GERD - Gastro-esophageal reflux disease Confirmed Active Hiatal hernia Confirmed Active History of cervical dysplasia Confirmed Active Hx of hysterectomy for benign disease Confirmed Active Nausea and vomiting 1 Confirmed Active Respiratory symptom 2 Confirmed 06/24/22 Active 1post op 2pt had nasal congestion and cough x1 week neg covid test sx gone now Procedures Procedure Date Related Diagnosis Body Site Status Total Laparoscopic Hysterectomy 1 08/21/22 Completed Laparoscopy 2 09/26/15 Completed Dilation and curettage 08/2011 Co mpleted Appendectomy Completed Bilateral tubal ligation Completed Cholecystectomy Completed Sugey-Glenn operation for hiatal hernia repair with esophagogastroplasty Completed Dissection tonsillectomy and adenoidectomy Completed Extraction of wisdom tooth Completed 1auto-populated from documented surgical case 2Laparoscopy with lysis of adhesions behind the right ovary, bilateral salpingectomies Vital Signs Most recent to oldest [Reference Range]: 1 Blood Pressure [90-140/60-90 mmHg] 108/6 8mmHg (10/12/22 9:11 AM) Weight 90.4 kg (10/12/22 9:11 AM) Weight Measured (lbs) 199.298 lb (10/12/22 9:11 AM) [place] Body Weight Calculated 68.5 kg (10/12/22 9:11 AM) Height 177.8 cm (10/12/22 9:11 AM) Height/Length Measured (inches) 70 inch (10/12/22 9:11 AM) BSA Measured 2.11 m2 (10/12/22 9:11 AM) Body Mass Index 28.6 kg/m2 (10/12/22 9:11 AM) Social History Social History Type Response Tobacco Never tobacco user T obacco Use:. 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 Findings at the time of surgery noted a normal-appearing uterus and absent fallopian tubes.?? She hadnormal ovaries bilaterally.?? Estimated blood loss was 25 mL.?? The final pathology noted a benign uterus with benign, proliferative endometrium.?? She had multifocal atypical squamous metaplasia on her cervix.?? On further review and second opinion, high-grade dysplasia could not be excluded entirely.?? Nonetheless there was no evidence of dysplasia at the margins of resection. ?? She states that she did well??postoperatively. ??Her incisions healed well. ??She did have an episode of bleeding??from the vagina??and some mild associated cramping.?? It ran its course??and she has had no unusual discharge since. Physical Exam Vitals & Measurements BP:??108/68?? HT:??177.8??cm?? WT:??90.4??kg?? BMI:??28.6?? BSA:??2.11?? The laparoscopic incision sites have healed well Vaginal:??With a long [place] speculum the apex of the vagina was inspected.?? The??vaginal cuff has completely healed. ??No granulation tissue. ??The wound edges??have reapproximated??to the point that??it is??completely healed. Assessment/Plan 1.??Postoperative examination??Z09 She is doing well overall.?? Back to work tomorrow.?? Her back to work forms were filled out. 2.??Hx of hysterectomy for benign disease??Z90.710 3.??History of cervical dysplasia??Z87.410 The patient does have a significant history of cervical dysplasia and I would recommend she have??Pap smear screening with HPV testing??every few years??to ensure??she is having no recurrence of disease.?? I reviewed this recommendation with her??and we made a plan for her to come back in a year for routine follow- up.?? Next Pap however will be in 3 years. Problem List/Past Medical History Ongoing Asthma Eczema GERD - Gastro-esophageal reflux disease Hiatal hernia History of cervical dysplasia Hx of hysterectomy for benign disease Nausea and vomiting Respiratory symptom Historical MRSA (Methicillin resistant Staphylococcus aureus) infection Procedure/Surgical History ???Total Laparoscopic Hysterectomy (08/21/2022)???Laparoscopy (09/27/2015)???Dilation and curettage(08/2011)???Appendectomy???Bilateral tubal ligation???Cholecystectomy???Sugey-Glenn operation forhiatal hernia repair with esophagogastroplasty???Dissection tonsillectomy and adenoidectomy???Extrac tion of wisdom tooth Medications EPINEPHrine 0.3 mg injectable kit, 0.3 mg, IM, Once, PRN valACYclovir 1 g oral tablet, 1 g= 1 tab, Oral, Daily, PRN Allergies Kiwi??(Anaphylactic reaction) Adhesive Bandage Banana Latex NSAIDs lidocaine??(Hives) Social History Alcohol Current, 1-2 times per year Electronic Cigarette/Vaping Electronic Cigarette Use: Never. 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 Highest education level: Some college. Sexual Sexually active: Yes. Substance Use Current, Marijuana, Daily Tobacco Never tobacco user Tobacco Use:. Family History Other: Mother, Father and Sister. Thyroid disease: Sister. Electronically Signed on 10/12/22 09:39 AM Neftali Hicks MD Patient Care team information Personnel Name: CHACHA SWAIN Address: Address: [address] [place] [address]- [place]
--- OUTSIDE RECORDS SUMMARY | 2024-05-04 11:57 | XMS_ITS | Encounter Summary ---
Author Organization [facility] Address [address] [place] [address] Care Team Providers Care Clinic Office Manager Name Role Phone None, Provider Primary Care Provider Unavailabl e Encounter Details Date Type Department Care Team (Late st Contact Info) Description 09/16/2020 Results Only [facility] Lab - Main [address] [id number] Unknown, Provider, Social History Tobacco Use Types [...] Date/Time Associated Diagnosis Comments COVID-19 TESTING Routine 09/16/2020 6:25 EST documented in this encounter Results * COVID-19 TESTING (09/16/2020 6:25 EST) Performing Lab AB [address] [facility] 09/17/2020 15:58 EST [facility] Comment: RESULT: [employer] 7 [facility] Please indicate the Triage Tier2 Test performed or referred by The [address] [address] COVID-19 rt-PCR Result Not Detected Negative 09/17/2020 15:58 EST [facility] Comment: Negative results do not preclude 2019-nCoV infection and should not be used as the sole basis for treatment or other patient management decisions. Negative results must be combined with clinical observations, patient history, and epidemiological information. This test was developed and its performance characteristics determined by [facility]. It has not been cleared or approved [...] defined by the FDA Performed on the [employer] Flex. 09/16/2020 6:25 EST 09/16/2020 13:21 EST Provider Unknown MICROBIOLOGY - KAY AL ORDERABLES Performing Organization Address City/State/[facility] Co de Phone Number [facility] [address] [place] [address] documented in this encounter Visit Diagnoses Not on filedocumented in this encounter Care Teams Clinic Office Manager Relationship Specialty Start Date End Date None, Provider PCP - General 10/02/15 documented as of this encounter
--- OUTSIDE RECORDS SUMMARY | 2024-05-04 11:57 | XMS_ITS | Referral Summary ---
Author Organization [facility] Address [address] [place] [address] Care Team Providers Care Oracle Erp Architect Name Role Phone None, Provider Primary Care [...] Orientation Not on file Plan of Treatment Not on file Care Teams Oracle Erp Architect Relationship Specialty Start Date End Date None, Provider PCP - General 10/02/15
--- OUTSIDE RECORDS SUMMARY | 2024-05-04 11:57 | XMS_ITS | Encounter Summary ---
Author Organization [facility] Address [address] [place] [address] Care Team Providers Care Grain Oilseed Or Pasture Farm Worker Name Role Phone None, Provider Primary Care Provider Unavailabl e Encounter Details Date Type Department Care Team (Late st Contact Info) Description 09/04/2020 Lab Requisition [facility] Pathology & Laboratory Medicine - [address] [address] Outr Resulting Lab, Provider Social History Tobacco [...] Comments ZZCOVID-19 TEST [facility] PCR Today 09/04/2020 7:15 EST COVID-19 TESTING Routine 09/04/2020 7:15 EST documented in this encounter Results * COVID-19 TEST [facility] PCR (09/04/2020 7:15 EST) Swab ENTIRE NASOPHARYNX / Unknown 09/04/2020 7:15 EST 09/04/2020 16:56 EST Provider Outr Resulting Lab MICROBIOLOGY - GENERAL ORDERABLES [facility] [address] [place] [address] * COVID-19 TESTING (09/04/2020 7:15 EST) COVID-19 rt-PCR Result Negative Negative 09/05/2020 18:08 EST [facility] Comment: Negative results do not preclude 2019-nCoV infection and should not be used as the sole basis for treatment or other patient management decisions. Negative results must be combined with clinical observations, patient history, and epidemiological information. This test was developed and its performance characteristics determined by [facility]. It has not been cleared or [...] defined by the FDA Performed on the [employer] 7 Flex. Performing Lab [employer] 7 [facility] Lab 09/05/2020 18:08 EST [facility] Swab 09/04/2020 7:15 EST 09/04/2020 16:56 EST Provider Outr Resulting Lab MICROBIOLOGY - GENERAL ORDERABLES [facility] [address] [place] [address] documented in this encounter Visit Diagnoses Not on filedocumented in this encounter Care Teams Grain Oilseed Or Pasture Farm Worker Relationship Specialty Start Date End Date None, Provider PCP - General 10/02/15 documented as of this encounter
--- OUTSIDE RECORDS SUMMARY | 2024-05-04 11:57 | XMS_ITS | Encounter Summary ---
Author Organization [facility] Address [address] [place] [address] Care Team Providers Care Womens Health Nurse Practitioner Name Role Phone None, Provider Primary Care Provider Unavailabl e Encounter Details Date Type Department Care Team (Late st Contact Info) Description 05/11/2023 Lab Requisition [facility] Pathology & Laboratory Medicine - [facility] [address] [place] [address] Outr Resulting Lab, Provider Social History Tobacco [...] Procedure Name Priority Date/Time Associated Diagnosis Comments CELIAC DISEASE PANEL Routine 05/10/2023 15:58 EDT documented in this encounter Results * CELIAC DISEASE PANEL (05/10/2023 15:58 EDT) Tissue Transglutaminase Antibody IGA <1.2 <4.0 U/mL 05/13/2023 12:50 EDT [facility] Comment: A negative result may be due to IgA deficiency and does not rule out celiac disease. ? Negative: ??<4.0 U/mL ? Weak Positive: ??4.0 - 10.0 U/mL ? Positive: ??>10.0 U/mL Results were obtained with the GemfireA Lite R h-tTG IgA BRANDO assay on the [employer] DSX. IgA 123 85 - 499 mg/dL 05/13/2023 12:50 EDT [facility] Celiac Disease Interpretation Negative Serology. Celiac disease unlikely. Approximately 10% of patients with celiac disease are seronegative. Patients who are already adhering to a gluten-free diet may also be seronegative. If celiac disease is highly clinically suspected, referral to gastroenterology for additional evaluation is recommended. 05/13/2023 12:50 EDT [facility] Blood VENOUS BLOOD / Unknown 05/10/2023 15:58 EDT 05/11/2023 16:51 EDT Provider Outr Resulting Lab IMMUNOLOGY A ND SEROLOGY ORDERABLES [facility] [address] [place] [address] documented in this encounter Visit Diagnoses Not on filedocumented in this encounter Care Teams Womens Health Nurse Practitioner Relationship Specialty Start Date End Date None, Provider PCP - General 10/02/15 documented as of this encounter
--- OUTSIDE RECORDS SUMMARY | 2024-05-04 11:57 | XMS_ITS | Encounter Summary ---
Author Organization [facility] Address [address] [place] [address] Care Team Providers Care Workforce Development Program Director Name Role Phone None, Provider Primary Care Provider Unavailabl e Encounter Details Date Type Department Care Team (Late st Contact Info) Description 09/01/2021 Lab Requisition [facility] Pathology & Laboratory Medicine - [facility] [address] [place], [place] [id number] Outr Resulting Lab, Provider Social History Tobacco [...] Date/Time Associated Diagnosis Comments LYME AB Routine 08/31/2021 10:55 EST documented in this encounter Results * LYME AB (08/31/2021 10:55 EST) Lyme Ab Negative Negative 09/02/2021 10:35 EST [facility] Blood VENOUS BLOOD / Unknown 08/31/2021 10:55 EST 09/01/2021 16:31 EST Provider Outr Resulting Lab IMMUNOLOGY A ND SEROLOGY ORDERABLES [facility] [address] [place] [address] documented in this encounter Visit Diagnoses Not on filedocumented in this encounter Care Teams Workforce Development Program Director Relationship Specialty Start Date End Date None, Provider PCP - General 10/02/15 documented as of this encounter
--- OUTSIDE RECORDS SUMMARY | 2024-05-04 11:57 | XMS_ITS | Encounter Summary ---
Author Organization [facility] Address [address] [place] [address] Care Team Providers Care Vertical Boring Mill Operator Name Role Phone None, Provider Primary Care Provider Unavailabl e Encounter Details Date Type Department Care Team (Late st Contact Info) Description 08/28/2020 Lab Requisition [facility] Pathology & Laboratory Medicine - [address] [address] Outr Resulting Lab, Provider Social History Tobacco [...] Comments ZZCOVID-19 TEST [facility] PCR Today 08/28/2020 13:37 EST COVID-19 TESTING Routine 08/28/2020 13:3 7 EST documented in this encounter Results * COVID-19 TEST [facility] PCR (08/28/2020 13:37 EST) Swab ENTIRE NASOPHARYNX / Unknown 08/28/2020 13:37 EST 08/29/2020 8:37 EST Provider Outr Resulting Lab MICROBIOLOGY - GENERAL ORDERABLES [facility] [address] [place] [address] * COVID-19 TESTING (08/28/2020 13:37 EST) COVID-19 rt-PCR Result Negative Negative 08/30/2020 15:14 EST [facility] Comment: Negative results do not preclude 2019-nCoV infection and should not be used as the sole basis for treatment or other patient management decisions. Negative results must be combined with clinical observations, patient history, and epidemiological information. This test was developed and its performance characteristics determined by [facility]. It has not been cleared [...] defined by the FDA Performed on the [employer] 7 Flex. Performing Lab [facility] 08/30/2020 15:14 EST [facility] Swab 08/28/2020 13:3 7 EST 08/29/2020 8:37 EST Provider Outr Resulting Lab MICROBIOLOGY - GENERAL ORDERABLES [facility] [address] [place] [address] documented in this encounter Visit Diagnoses Not on filedocumented in this encounter Care Teams Vertical Boring Mill Operator Relationship Specialty Start Date End Date None, Provider PCP - General 10/02/15 documented as of this encounter
--- OUTSIDE RECORDS SUMMARY | 2024-05-04 11:57 | XMS_ITS | Encounter Summary ---
Author Organization [facility] Address [address] [place] [address] Care Team Providers Care Physical Security Manager Name Role Phone None, Provider Primary Care Provider Unavailabl e Encounter Details Date Type Department Care Team (Late st Contact Info) Description 06/17/2021 Lab Requisition [facility] Pathology & Laboratory Medicine - [facility] [address], [place] [address] Outr Resulting Lab, Provider Social History Tobacco [...] Comments ZZCOVID-19 TEST [facility] PCR Today 06/16/2021 9:00 EDT COVID-19 TESTING Routine 06/16/2021 9:00 EDT documented in this encounter Results * COVID-19 TEST [facility] PCR (06/16/2021 9:00 EDT) Swab ENTIRE NASOPHARYNX / Unknown 06/16/2021 9:00 EDT 06/17/2021 16:53 EDT Provider Outr Resulting Lab MICROBIOLOGY - GENERAL ORDERABLES [facility] [address] [place] [address] * COVID-19 TESTING (06/16/2021 9:00 EDT) COVID-19 rt-PCR Result Negative Negative 06/18/2021 15:40 EDT [facility] Comment: This test has [...] developed and its performance characteristics determined by [facility]. It has not been cleared or [...] testing. This test is based on the [facility] COVID-19 Emergency Use Authorization (EUA) assay, with minor modification as defined by the FDA Performed on the [employer] 7 Flex RT-PCR System. Performing Lab [facility] Lab 06/18/2021 15:40 EDT [facility] Swab 06/16/2021 9:00 EDT 06/17/2021 16:53 EDT Provider Outr Resulting Lab MICROBIOLOGY - GENERAL ORDERABLES [facility] [address] [place] [address] documented in this encounter Visit Diagnoses Not on filedocumented in this encounter Care Teams Physical Security Manager Relationship Specialty Start Date End Date None, Provider PCP - General 10/02/15 documented as of this encounter
--- OUTSIDE RECORDS SUMMARY | 2024-05-04 11:57 | XMS_ITS | Encounter Summary ---
Author Organization [facility] Address [address] [place] [address] Care Team Providers Care Production Line Solderer Name Role Phone None, Provider Primary Care Provider Unavailabl e Encounter Details Date Type Department Care Team (Late st Contact Info) Description 09/16/2020 Lab Requisition [facility] Pathology & Laboratory Medicine - [address] [address] Outr Resulting Lab, Provider Social History Tobacco [...] Comments ZZCOVID-19 TEST [facility] PCR Today 09/16/2020 6:25 EST COVID-19 TESTING Routine 09/16/2020 6:25 EST documented in this encounter Results * COVID-19 TEST [facility] PCR (09/16/2020 6:25 EST) Swab ENTIRE NASOPHARYNX / Unknown 09/16/2020 6:25 EST 09/16/2020 16:51 EST Provider Outr Resulting Lab MICROBIOLOGY - GENERAL ORDERABLES [facility] [address] [place] [address] * COVID-19 TESTING (09/16/2020 6:25 EST) COVID-19 rt-PCR Result Negative Negative 09/17/2020 15:21 EST [facility] Comment: Negative results do not preclude 2019-nCoV infection and should not be used as the sole basis for treatment or other patient management decisions. Negative results must be combined with clinical observations, patient history, and epidemiological information. This test was developed and its performance characteristics determined by [facility]. It has not been cleared or approved [...] defined by the FDA Performed on the [employer] 7 Flex. Performing Lab [employer] 7 [facility] Lab 09/17/2020 15:21 EST [facility] Swab 09/16/2020 6:25 EST 09/16/2020 16:51 EST Provider Outr Resulting Lab MICROBIOLOGY - GENERAL ORDERABLES [facility] [address] [place] [address] documented in this encounter Visit Diagnoses Not on filedocumented in this encounter Care Teams Production Line Solderer Relationship Specialty Start Date End Date None, Provider PCP - General 10/02/15 documented as of this encounter
--- OUTSIDE RECORDS SUMMARY | 2024-05-04 11:58 | XMS_ITS | Encounter Summary ---
Author Organization [facility] Address [address] [place] [address] Care Team Providers Care Strategic Account Executive Name Role Phone None, Provider Primary Care Provider Unavailabl e Encounter Details Date Type Department Care Team (Late st Contact Info) Description 05/13/2020 Lab Requisition [facility] Pathology & Laboratory Medicine - [facility] [address] [place] [address] Outr Resulting Lab, Provider Social History Tobacco Use Types Packs/Day Years Used Date Smoking Tobacco: Never Assessed Sex and Gender Information Value Date Recorded Sex Assigned at Not on file Gender Identity Not on file Sexual Orientation Not on file documented as of this encounter Plan of Treatment Not on file documented as of this encounter Procedures Procedure Name Priority Date/Time Associated Diagnosis Comments DO NOT ORDER STANDALONE - [facility] COVID TEST Today 05/13/2020 13:03 EDT COVID-19 TESTING Routine 05/13/2020 13:0 3 EDT documented in this encounter Results * DO NOT ORDER STANDALONE - [facility] COVID TEST (05/13/2020 13:03 EDT) COVID-19 rt-PCR Result NEGATIVE Negative 05/14/2020 12:45 EDT [facility] Comment: 2019-novel Coronavirus (2019-nCoV) [...] in accordance with CLIA regulations, [employer] [place] [employer] (CAP) guidelines (Dec 07, 2019), and FDA guidance (Nov 18, 2019). This test is only for use under the Food and Drug Administration's Emergency Use Authorization. Swab ENTIRE NASOPHARYNX / Unknown 05/13/2020 13:03 EDT 05/13/2020 22:22 EDT Provider Outr Resulting Lab MICROBIOLOGY - GENERAL ORDERABLES [place] * COVID-19 TESTING (05/13/2020 13:03 EDT) [facility] COVID-19 rt-PCR Result NEGATIVE Negative 05/14/2020 14:22 EDT [facility] Comment: 2019-novel Coronavirus (2019-nCoV) not detected [...] in accordance with CLIA regulations, [employer] [place] [employer] (CAP) guidelines (Dec 07, 2019), and FDA guidance (Nov 18, 2019). This test is only for use under the Food and Drug Administration's Emergency Use Authorization. Performing Lab [facility] 05/14/2020 14:22 EDT [facility] Swab 05/13/2020 13:0 3 EDT 05/13/2020 22:22 EDT Provider Outr Resulting Lab MICROBIOLOGY - GENERAL ORDERABLES [facility] [address] [place] [address] [facility] [place] documented in this encounter Visit Diagnoses Not on filedocumented in this encounter Care Teams Strategic Account Executive Relationship Specialty Start Date End Date None, Provider PCP - General 10/02/15 documented as of this encounter
--- OUTSIDE RECORDS SUMMARY | 2024-05-04 11:58 | XMS_ITS | Encounter Summary ---
Author Organization [facility] [place] [address] Care Team Providers Care Freight Manager Name Role Phone Sky Jensen MD Primary Care Provider [phone] Encounter Details Date Type Department Care Team (Latest Contact Info) Description 05/23/2015 3:30 PM EDT - 05/23/2015 11:59 PM EDT Hospital Encounter Non-Invasive [place] [phone] CARDIO, ECHO SIXTY MIN APPT None Thang Isidro MD [facility] [place] [address] Syncope, unspecified Discharge Disposition: Home Social History Tobacco Use Types Packs/Day Years Used Date Smoking Tobacco: Every Day Cigarettes 1 5 Smokeless Tobacco: Never Alcohol Use Standard Drinks/Week Comments Yes 3 (1 standard drink = 0.6 oz pur e alcohol) Sex and Gender Information Value Date Recorded Sex Assigned at Not on file Gender Identity Not on file Sexual Orientation Not on file documented as of this encounter Medications at Time of Discharge Medication Sig Dispensed Refills Start Date End Date PROAIR HFA 90 mcg/actuation HFA Aerosol Inhaler as needed. 0 09/12/2014 07/29/2023 triamcinolone (KENALOG) 0.1 % Ointment 0 09/12/2014 07/29/2023 dextroamphetamine-ampheta mine (ADDERALL) 10 mg tablet Take 10 mg by mouth daily. 10/10/2015 documented as of this encounter Plan of Treatment Not on file documented as of this encounter Procedures Procedure Name Priority Date/Time Associated Diagnosis Comments ECHOCARDIOGRAM TRANSTHORACIC Routine 05/23/2015 4:16 PM EDT Syncope, unspecified documented in this encounter Results * Echocardiogram Transthoracic(Leb) (05/23/2015 4:16 PM EDT) EF 63 HEARTLAB SYSTEM Anatomical Region Laterality Modality Other 05/23/2015 Narrative 05/23/2015 4:36 PM EDT Procedure: ?Transthoracic Echocardiogram Patient: ?HAYWARD LIBERTY N ? (Age): 1990(25y) Med Rec#: ? [id number] ?Sex: ?F ? Site Loc: ? [facility] ?Ht / Wt: ??175.3(cm)/68(kg Pt. Loc: ?Echo Lab ?BSA: ?1.83 Study Date: ?? 05/23/2015 ?Pt. Type: Outpatient Tape: ? Referring: Thang Isidro Reading: Jasson Pascal ([id number]) Head Cashier: Ashlie Valdez Diagnosis: CPT Codes: *Echo Full (97896) *Spectral Doppler (90743) *Color Doppler (82253) Indication: ?? Syncope Rhythm: ? Sinus BP: [...] additional findings. No prior echo for comparison. FINDINGS: ? Study Quality ?Adequate Left Ventricle ?The left ventricular chamber size is normal. ?Left ventricular wall thickness is normal. ?There is no evidence of LVOT obstruction. ?There is normal global left ventricular systolic function. ?The quantitative left ventricular ejection fraction by biplane Be's method is 63%. ?There are no left ventricular segmental wall motion abnormalities. ?Doppler assessment is consistent with normal left sided filling pressure. Left Atrium ?The left atrium is normal in size. 24 ml/m2 by volume index. Right Ventricle ?Right ventricular chamber size, wall thickness, and systolic function are within normal limits. ?The estimated pulmonary artery systolic pressure is 20 mmHg. ?The estimated right atrial pressure is 3 mmHg. Right Atrium ?The right atrium appears normal. Aortic Valve ?The aortic valve is trileaflet. The leaflets are thin with normal excursion. There is no aortic stenosis or regurgitation present. Mitral Valve ?The mitral valve appears normal in structure and function. ?There is trace mitral regurgitation present. Tricuspid Valve ?The tricuspid valve appears normal in structure and function. ?There is trace tricuspid regurgitation present. Pulmonic Valve ?The pulmonic valve appears normal in structure and function. ?There is trace pulmonic regurgitation present. Pericardium ?The pericardium appears normal and there is no evidence of a pericardial effusion. Aorta ?The aortic root is normal in size. ?The ascending aorta is normal in size. ?The left main coronary artery is visualized and originates normally from the aorta. ?The right coronary artery is visualized and originates normally from the aorta. Pulmonary Artery ?The main pulmonary artery appears normal. Venous ?The inferior vena cava appears normal in size. ?There is a greater than 50% respiratory change in the inferior vena cava dimension. Misc ?See remainder of report for additional findings. ?Two-dimensional echo, spectral Doppler and color Doppler performed. Chambers 2D ?Value [...] ? LV EDV SP 2CH (MOD) 101.2 ?ml ? LV ESV SP 2CH (MOD) 37.4 [...] E-wave Vmax ?1.1 ?m/sec ? MV deceleration [id number] ?msec ? MV A-wave Vmax ?0.4 ?m/sec ? MV E:A ratio ?2.5 ?ratio ? LV E:e' septal ratio0.2 ?ratio ? Tricuspid Valve ?Value ?Units (Range) ? TR Vmax ? 2.1 ?m/sec ? TR peak gradient ?17.1 ? mmHg ? RAP ? 3 ?mmHg ? RVSP ?20 ? mmHg ? Pulmonic Valve/Qp:Qs ?Value ?Units (Range) ? IL end-diastolic Vma0.7 ?m/sec ? PA end-diastolic pre5 ?mmHg ? Measurement Trending Name ? 05/23/2015 ? LV EDV BP ?96.6411 LVIDd (2D) ? 4.41267474 LV ESV BP ?36.1077 LVIDs (2D) ? 2.2707222 LA ESV BP (A/L) ?44.5252 Wall Motion: Segment Name ?Rest ? Base-Anteroseptal ?? Normal ? Base-Anterior ? Normal ? Base-Anterolateral ??Normal ? Base-Posterolateral Normal ? Base-Inferior ? Normal ? Base-Inferoseptal ?? Normal ? Mid-Anteroseptal ?Normal ? Mid-Anterior ?Normal ? Mid-Anterolateral ?? Normal ? Mid-Posterolateral ??Normal ? Mid-Inferior ?Normal ? Mid-Inferoseptal ?Normal ? [place]-Septal ? Normal ? [place]-Anterior ? Normal ? [place]-Lateral ?Normal ? [place]-Inferior ? Normal ? [place]-Tip ?Normal ? This report has been electronically signed by: Jasson Pascal MD ? 05/23/2015 16:35:52 Images reviewed and interpretation verified [facility] Procedure Note Jasson Pascal MD - 05/23/2015 Procedure: Transthoracic Echocardiogram Patient: MAINOR DUENAS(Age): 1990(25y) Med Rec#: [id number] Sex: F Site Loc: [facility] Ht / Wt: 175.3(cm)/68(kg Pt. Loc: Echo Lab BSA: 1.83 Study Date: 05/23/2015 Pt. Type: Outpatient Tape: Referring: Thang Isidro Reading: Jasson Pascal ([id number]) Head Cashier: Ashlie Valdez Diagnosis: CPT Codes: *Echo Full (67175) *Spectral Doppler (74061) *Color Doppler (82128) Indication: Syncope Rhythm: Sinus BP: 112/71 SUMMARY: [...] additional findings. No prior echo for comparison. FINDINGS: Study Quality Adequate Left Ventricle The left ventricular chamber size is normal. Left ventricular wall thickness is normal. There is no evidence of LVOT obstruction. There is normal global left ventricular systolic function. The quantitative left ventricular ejection fraction by biplane Be's method is 63%. There are no left ventricular segmental wall motion abnormalities. Doppler assessment is consistent with normal left sided filling pressure. Left Atrium The left atrium is normal in size. 24 ml/m2 by volume index. Right Ventricle Right ventricular chamber size, wall thickness, and systolic function are within normal limits. The estimated pulmonary artery systolic pressure is 20 mmHg. The estimated right atrial pressure is 3 mmHg. Right Atrium The right atrium appears normal. Aortic Valve The aortic valve is trileaflet. The leaflets are thin with normal excursion. There is no aortic stenosis or regurgitation present. Mitral Valve The mitral valve appears normal in structure and function. There is trace mitral regurgitation present. Tricuspid Valve The tricuspid valve appears normal in structure and function. There is trace tricuspid regurgitation present. Pulmonic Valve The pulmonic valve appears normal in structure and function. There is trace pulmonic regurgitation present. Pericardium The pericardium appears normal and there is no evidence of a pericardial effusion. Aorta The aortic root is normal in size. The ascending aorta is normal in size. The left main coronary artery is visualized and originates normally from the aorta. The right coronary artery is visualized and originates normally from the aorta. Pulmonary Artery The main pulmonary artery appears normal. Venous The inferior vena cava appears normal in size. There is a greater than 50% [...] MV E-wave Vmax 1.1 m/sec MV deceleration [id number] msec MV A-wave Vmax 0.4 m/sec MV E:A ratio 2.5 ratio LV E:e' septal ratio0.2 ratio Tricuspid Valve Value Units (Range) TR Vmax 2.1 m/sec TR peak gradient 17.1 mmHg RAP 3 mmHg RVSP 20 mmHg Pulmonic Valve/Qp:Qs Value Units (Range) IL end-diastolic Vma0.7 m/sec PA end-diastolic pre5 mmHg Measurement Trending Name 05/23/2015 LV EDV BP 96.6411 LVIDd (2D) 4.61068161 LV ESV BP 36.1077 LVIDs (2D) 2.7358393 LA ESV BP (A/L) 44.5252 Wall Motion: Segment Name Rest Base-Anteroseptal Normal Base-Anterior Normal Base-Anterolateral Normal Base-Posterolateral Normal Base-Inferior Normal Base-Inferoseptal Normal Mid-Anteroseptal Normal Mid-Anterior Normal Mid-Anterolateral Normal Mid-Posterolateral Normal Mid-Inferior Normal Mid-Inferoseptal Normal [place]-Septal Normal [place]-Anterior Normal [place]-Lateral Normal [place]-Inferior Normal [place]-Tip Normal This report has been electronically signed by: Jasson Pascal MD 05/23/2015 16:35:52 Images reviewed and interpretation verified [facility] Thang Isidro MD ECHO ORDERABLES documented in this encounter Visit Diagnoses Diagnosis Syncope, unspecified documented in this encounter Care Teams Freight Manager Relationship Specialty Start Date End Date Sky Jensen MD [address] [place] [address] PCP - General 12/03/14 07/22/20 documented as of this encounter
--- OUTSIDE RECORDS SUMMARY | 2024-05-04 11:58 | XMS_ITS | Encounter Summary ---
Author Organization [facility] Address [address] [place] [address] Care Team Providers Care Artifacts Conservator Name Role Phone None, Provider Primary Care Provider Unavailabl e Encounter Details Date Type Department Care Team (Late st Contact Info) Description 08/11/2020 Results Only [facility] Lab - Main [address] [id number] Unknown, Provider, Social History Tobacco Use Types [...] Procedure Name Priority Date/Time Associated Diagnosis Comments [facility] 08/11/2020 15:23 EST documented in this encounter Results * COVID-19 (08/11/2020 15:23 EST) [address] Not Detected 08/12/2020 21:11 EST [facility] Comment: TESTING PERFORMED AT [facility]; Analyte ? Result 2019-nCoV ? Not detected Negative results do not preclude 2019-nCoV infection and should not be used as the sole basis for treatment or other patient management decisions. ??Negative results must be combined with clinical observations, patient history and epidemlogical information. 08/11/2020 15:2 3 EST 08/11/2020 19:41 EST Provider Unknown MICROBIOLOGY - GENER AL ORDERABLES Performing Organization Address City/State/[facility] Co de Phone Number [facility] [address] [place] [address] documented in this encounter Visit Diagnoses Not on filedocumented in this encounter Care Teams Artifacts Conservator Relationship Specialty Start Date End Date None, Provider PCP - General 10/02/15 documented as of this encounter
--- OUTSIDE RECORDS SUMMARY | 2024-05-04 11:58 | XMS_ITS | Encounter Summary ---
Author Organization Replaced By [facility] [place] [address] Care Team Providers Care Unix Manager Name Role Phone Sky Jensen MD Primary Care Provider [phone] Encounter Details Date Type Department Care Team (Late st Contact Info) Description 11/01/2015 Telephone Cardiology at [address] [address] Jonatan Price MD [facility] [place] [address] Social History Tobacco Use Types Packs/Day Years [...] documented as of this encounter Miscellaneous Notes * Telephone Encounter - Jonatan Price - 11/01/2015 4:53 PM EST I reviewed the Ziopatch tracings and EKG stress test tracings. The ziopatch showed no arrhythmias, even during one of her syncope spells. Exercise stress testing was diagnostic and did not show signsof ischemia or arrhythmia. Based on the above findings, she does not appear to have an alternative cardiac cause of her syncope episodes, and they are vasovagal. I attempted to call the patient today, to review the results and discuss symptoms/management. I left a voicemail, and a brief message with her grandmother. Jonatan Price MD Cardiac Electrophysiology Fellow Physician Pager [phone] Daytime documented in this encounter Plan of Treatment Not on file documented as of this encounter Visit Diagnoses Not on filedocumented in this encounter Care Teams Unix Manager Relationship Specialty Start Date End Date Sky Jensen MD [address] [place] [address] PCP - General 12/03/14 07/22/20 documented as of this encounter
--- OUTSIDE RECORDS SUMMARY | 2024-05-04 11:58 | XMS_ITS | Encounter Summary ---
Author Organization [facility] Address [facility] [place] [address] Care Team Providers Care Instrumentation Fitter Name Role Phone Cornelia Hernandez Primary Care Provider [phone] Reason for Visit * Reason Comments Skin Lesion * Consultation (Routine) - Closed Specialty Diagnoses / Procedures Referred By Rashmi salomon Referred To Contact Dermatology Diagnoses Plantar wart Cornelia Hernandez PA [address] [place] [address] [facility] Dermatology [address] [place] [address] Referral ID Status Reason Start Date Expiration Date V isits Requested Visits Authorized [id number] Closed Consult, Test & Treat Connection [facility] PCP Updated and/or Approved 10/28/2020 10/28/2021 6 6 Encounter Details Date Type Department Care Team (Late st Contact Info) Description 11/21/2020 3:20 PM EST Office Visit Dermatology at [facility] [address] [place] [phone] Yosef De Los Santos MD [facility] [place] [address] Clavus; Verruca vulgaris Social History Tobacco Use Types Packs/Day Years [...] documented as of this encounter Progress Notes * Yosef Taylor MD - 11/21/2020 3:20 PM [...] left and and bilateral plantar feet. The lesions on the feet can be painful when walking. She has treated with LN2, OTC salicylic acid pads, and iscurrently using 5FU cream to the feet and has been using it nightly for 1 week. Patient notes that she has had her HPV vaccines. Relevant Skin History: - Okay to leave detailed message with results? 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 fluorouraciL (EFUDEX) 5 % Cream Apply 1 gram thin layer to affected sites once daily. Cover with bandaid. 40 g 0 ??? EPINEPHrine 0.3 mg/0.3 [...] vinegar solution - recommend following up with Forensic Psychiatrist - Patients with recurrent or recalcitrant corns may require referral to a director of retail marketing or orthopedic surgeon for surgical correction of bony abnormalities. - discussed these are not warts and that management should focus on pressure offloading, chemical exfoliation with hydroxyacid products, and mechanical exfoliation with a pumice stone. Recommended she speak with her director of retail marketing about orthotics or other offloading devices. RTC: [...] by Yosef Taylor MD Resident in Dermatology [facility] Patient seen in conjunction with staff rehab therapist: Melo Escobar MD Department of Dermatology [facility] * Melo Escobar MD - 11/21/2020 3:20 PM EST I directly supervised Dr. Taylor during this office visit. Dr. Taylor presented the history and physical exam to me. I then saw and examined this patient with Dr. Taylor . We reviewed the history and pertinent details and I confirmed the physical findings. I agree with the details of the historyand physical exam as documented in Dr. Taylor's note. MELO ESCOBAR MD Staff Physician documented in this encounter Plan of Treatment Not on file documented as of this encounter Visit Diagnoses Diagnosis Clavus Corns and callosities Verruca vulgaris Viral warts, unspecified documented in this encounter Care Teams Instrumentation Fitter Relationship Specialty Start Date End Date Cornelia Hernandez PA [address] [address] PCP - General Family Medicine 07/23/20 06/03/23 documented as of this encounter
--- OUTSIDE RECORDS SUMMARY | 2024-05-04 11:58 | XMS_ITS | Encounter Summary ---
Author Organization [facility] Address [address] [place] [address] Care Team Providers Care Foundry Patternmaker Name Role Phone Sky Jensen MD Primary Care Provider [phone] Encounter Details Date Type Department Care Team (Latest Contact Info) Description 09/27/2015 9:46 EST - 09/27/2015 23:59 EST Hospital Encounter [address] [address] Unknown, ProviderMD Discharge Disposition: Home or Self Care Social History Tobacco Use Types Packs/Day Years Used Date Smoking Tobacco: Never Assessed Sex and Gender Information Value Date Recorded Sex Assigned at Not on file Gender Identity Not on file Sexual Orientation Not on file documented as of this encounter Discharge Disposition Disposition Code Departure Means Destination Home or Self Nursing Home documented in this encounter Plan of Treatment Not on file documented as of this encounter Visit Diagnoses Not on filedocumented in this encounter Care Teams Foundry Patternmaker Relationship Specialty Start Date End Date Sky Jensen MD [address] [place] [address] PCP - General 11/12/14 10/01/15 documented as of this encounter
--- OUTSIDE RECORDS SUMMARY | 2024-05-04 11:58 | XMS_ITS | Encounter Summary ---
Author Organization [facility] [place] [address] Care Team Providers Care Insole Tape Stitcher Uco Name Role Phone Dony Vu APRN Primary Care Provide r Encounter Details Date Type Department Care Team (Late st Contact Info) Description 02/16/2014 2:00 PM EDT Office Visit Obstetrics [place] [address] Tonny Vergara MD [facility] DR OBSTETRICS & [place] [address] Pelvic pain syndrome (Primary Dx) Discharge Disposition: Home Social History Tobacco Use Types Packs/Day Years Used Date Smoking Tobacco: Every Day Cigarettes 1 4 Smokeless Tobacco: Never Alcohol Use Standard Drinks/Week Comments No 0 (1 standard drink = 0.6 oz pur [...] kg (181 lb 1.6 oz) 02/16/2014 2:05 P M EDT Height 175.3 cm (5' 9) 02/16/2014 2:05 PM EDT Body Mass Index 26.74 02/16/2014 2:05 PM EDT documented in this encounter Progress Notes * Tonny Vergara MD - 02/16/2014 2:57 PM [...] 35 minutes of that were spent in [id number] discussion. documented in this encounter Miscellaneous Notes * Miscellaneous - Provider, Yael - 02/23/2014 9:15 PM EDT documented in this encounter Plan of Treatment Not on file documented as of this encounter Visit Diagnoses Diagnosis Pelvic pain syndrome- Primary Pelvic congestion syndrome documented in this encounter Care Teams Insole Tape Stitcher Uco Relationship Specialty Start Date End Date Dony Vu, SEPTIC TANK SETTER [address] [place] [address] PCP - General 09/29/12 12/02/14 documented as of this encounter
--- OUTSIDE RECORDS SUMMARY | 2024-05-04 11:58 | XMS_ITS | Encounter Summary ---
Author Organization [facility] [place] [address] Care Team Providers Care Automated Process Operator Name Role Phone Cornelia Hernandez Primary Care Provider Reason for Visit * Reason Comments Plantar Warts Encounter Details Date Type Department Care Team (Late st Contact Info) Description 11/07/2020 2:30 PM EST Office Visit Podiatry at [facility] [place] [address] Brook Michelle DPM [facility] [place] [address] Plantar wart; Left foot pain Social History Tobacco Use Types Packs/Day [...] as of this encounter Progress Notes * Brook Michelle DPM - 11/07/2020 2:30 PM EST Outpatient Foot Care Clinic Note Name: Lori Cruz Age:30 y.o. MR#: [id number] Date of Service: 11/07/2020 SUBJECTIVE: Lori Cruz is a 30 y.o. female who returns to clinic today for reevaluation of plantar warts. Right foot warts have resolved with salicylic acid pad, however left foot wart continuesto persist. Patient has suffered with warts for [...] cream. Proper use reviewed. Discussed blister reaction may occur. Discussed if symptoms continue to persist can consider cauterization and surgical excision,however this can result in painful plantar scar and I would only advise this is the last resort. Noguarantees given or implied. Continued prevention. Answered all questions. Patient verbalized understanding of all instructions. FOLLOW UP: As scheduled or sooner if any concerns or changes arise Brook Michelle DPM Stylist Apprentice, [facility] documented in this encounter Plan of Treatment Not on file documented as of this encounter Visit Diagnoses Diagnosis Plantar wart Left foot pain Pain in limb documented in this encounter Care Teams Automated Process Operator Relationship Specialty Start Date End Date Cornelia Hernandez PA [address] [address] PCP - General Family Medicine 07/23/20 06/03/23 documented as of this encounter
--- OUTSIDE RECORDS SUMMARY | 2024-05-04 11:58 | XMS_ITS | Encounter Summary ---
Author Organization [facility] [place] [address] Care Team Providers Care Nickel Operator Name Role Phone Dony Vu APRN Primary Care Provide r Reason for Visit * Reason Onset Date Comments Other 09/21/2012 Question RE Anxi olytic Before OEM Encounter Details Date Type Department Care Team (Late st Contact Info) Description 09/21/2012 Telephone [place] [phone] Ana Jamison Other (Question RE Anxiolytic Before OEM) Social History Tobacco Use Types Packs/Day Years Used Date Smoking Tobacco: Every Day Alcohol Use Standard Drinks/Week Comments No 0 (1 standard drink = 0.6 oz pur e alcohol) Sex and Gender Information Value Date Recorded Sex Assigned at Not on file Gender Identity Not on file Sexual Orientation Not on file documented as of this encounter Miscellaneous Notes * Telephone Encounter - Ana Jamison - 09/21/2012 10:57 AM EST Pt called stating she needs anxiolytic before her OEM on 09/27/12 because she is allergic to Lidocaine/Benzocaine. Dr. [facility] ofc told her [facility] should order this, but [...] on filedocumented in this encounter Care Teams Nickel Operator Relationship Specialty Start Date End Date Dony Vu APRN [address] [place] [address] PCP - General 09/29/12 12/02/14 documented as of this encounter
--- OUTSIDE RECORDS SUMMARY | 2024-05-04 11:58 | XMS_ITS | Encounter Summary ---
Author Organization [facility] Address [facility] [place] [address] Care Team Providers Care Librarian Assistant Name Role Phone Sky Jensen MD Primary Care Provider Encounter Details Date Type Department Care Team (Late st Contact Info) Description 11/04/2015 Telephone Cardiology at [address] [phone] Jonatan Price MD [facility] [place] [address] Social History Tobacco Use Types Packs/Day Years [...] * Telephone Encounter - Jonatan Price - 11/04/2015 11:25 AM EST Called by patient today, after I left a message last week regarding testing results, after recent syncope 10/22/2015. I reviewed the results with her today. Ziopatch (with recordings during typical syncope) excluded acardiac arrhythmia. Exercise stress test did not show signs of ischemia or an inducible arrhythmia.Therefore, the diagnosis is neurocardiogenic syncope, after excluding [...] medications (such as hyocyamine AKA Levbid, or propanthelineAKA probanthine). We reviewed side effects, including GI issues, issues, hypohydrosis. She has opted to take Levbid 0.75 mg bid, since it is milder than probanthine. She will stop florinef and midodrine. We reviewed pacemaker implant for vasovagal syncope. I reviewed that it is a treatment, not a cure.It is only mildly effective, except in patients [...] on filedocumented in this encounter Care Teams Librarian Assistant Relationship Specialty Start Date End Date Sky Jensen MD [address] [place] [address] PCP - General 12/03/14 07/22/20 documented as of this encounter
--- OUTSIDE RECORDS SUMMARY | 2024-05-04 11:58 | XMS_ITS | Encounter Summary ---
Author Organization [facility] [address] Care Team Providers Care Cma Or Lpn Name Role Phone Sky Jensen MD Primary Care Provider [phone] Encounter Details Date Type Department Care Team (Late st Contact Info) Description 01/21/2015 External Results [place] [address] Maldonado Elizondo MD [facility] [place] [address] Hyperandrogenism Social History Tobacco Use Types Packs/Day Years [...] Procedure Name Priority Date/Time Associated Diagnosis Comments 17-HYDROXYPROGESTERONE Routine 12/19/2014 Hyperandrogenism documented in this encounter Results * (ABNORMAL) 17-Hydroxyprogesterone (12/19/2014) 17-Hydroxyprog ( 93(Externa l Lab) Blood specimen (specimen) 12/19/2014 Riya Zarate MD LAB SEND OUT KAMI ALLEN documented in this encounter Visit Diagnoses Diagnosis Hyperandrogenism Other ovarian hyperfunction documented in this encounter Care Teams Cma Or Lpn Relationship Specialty Start Date End Date Sky Jensen MD [address] [address] PCP - General 12/03/14 07/22/20 documented as of this encounter
--- OUTSIDE RECORDS SUMMARY | 2024-05-04 11:58 | XMS_ITS | Encounter Summary ---
Author Organization [facility] Address [address] [place] [address] Care Team Providers Care Bell Captain Name Role Phone Md RAVI Palafox Primary Care Provider Steve isaac Encounter Details Date Type Department Care Team (Late st Contact Info) Description 11/10/2010 Results Only [facility] - [facility] ([facility]) [address], [place] [id number] Joel Silvestre MD [address] [place] [id number] Social History Tobacco Use Types Packs/Day Years Used Date Smoking Tobacco: Never Assessed Sex and Gender Information Value Date Recorded Sex Assigned at Not on file Gender Identity Not on file Sexual Orientation Not on file documented as of this encounter Plan of Treatment Not on file documented as of this encounter Procedures Procedure Name Priority Date/Time Associated Diagnosis Comments SURGICAL PATHOLOGY Routine 11/10/2010 0:00 EST documented in this encounter Results * SURGICAL PATHOLOGY (11/10/2010 0:00 EST) Pathology Report: SURGICAL PATHOLOGY REPORT ? Reports generated via electronic interface contain original data; ? however they are lacking the format of the original report. ? Caution should be taken when reading/interpreting unformatted reports. ? Name: ? HAYWARD, LIBERTY ? Accession #: ? [id number] ? : ? 1990 (Age: 20) ??F ? Collect Date: ? 11/10/2010 ? Location: ? [facility] ? Receive Date: ? 11/10/2010 ? Provider: JOEL BENY MD ? Copy to: HÉCTOR EID MD ? Final Pathologic Diagnosis: ? A. ?Tonsil, left, tonsillectomy: ? 1. ?Tonsillar tissue with reactive lymphoid follicular hyperplasia. ? B. ??Tonsil, right, and adenoids, tonsillectomy and adenoidectomy: ? 1. ?? Tonsillary and adenoidal tissue with reactive lymphoid follicular ? hyperplasia. ? C. ??Uvula, mass, resection: ? 1. ?? Squamous papilloma. ? Comment: ? This case has been reviewed at the intradepartmental consultation ? conference. (Dr. Gomez)/mpl ? Document reviewed and electronically signed by: ? Masatoshi Kida, MD ? Report ??Date: 11/12/2010 17:51 ? By the signature above, the attending physician certifies that he/she has ? personally conducted a gross and/or microscopic examination of the described ? specimens and rendered or confirmed the above diagnosis. ? Specimen(s) Received: ? A. ?Lt tonsil ? B. ? Rt tonsil and adenoids ? C. ? Uvula mass ? Clinical History: ? 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 Gross Description: ? Received in formalin labelled HaywardLori and left tonsil is a 4.4 x 2.2 x 2.2 cm nodular tissue grossly consistent with a markedly enlarged palatine tonsil. ??The specimen is partially surfaced by a pink-klein, smooth and cryptic ?? mucosa, and sectioning reveals a pink-klein, homogeneous cut surface without ? masses or discrete lesions. ??A single food service representative section is submitted in ? (A). ? Received in formalin labelled HaywardLori and right tonsil and adenoids ?? is a 4.5 x 2.5 x 1.6 cm nodular tissue grossly consistent with a markedly ? enlarged palatine tonsil. ??The specimen is partially surfaced by a pink-klein, ? smooth and cryptic mucosa, and sectioning reveals a pink-klein, homogeneous cut ?? surface without masses or discrete lesions. ??Also received in the specimen ? container is a 1.0 x 1.0 x 0.3 cm aggregate of ragged pink-klein irregular tissue fragments consistent with adenoid tissue and without grossly discernible ? abnormalities. ??A food service representative section of tonsil and a food service representative section of probable adenoid tissue fragments are submitted in (B). ? Received in formalin labelled Hayward, [place] and uvula papilloma mass is a ?? 1.8 x 0.5 x 0.2 cm morataya-white, papillary, pedunculated, polypoid lesion, the ? stalk of which is composed of pink-klein, smooth mucosa. ??The margin is inked ? black and the specimen is submitted intact in (C). ??(Fabiana Silva)/reanna ? End of Report ? [facility] 11/10/2010 11/10/2010 18: 07 EST Joel Silvestre MD PATHOLOGY ORDERABLES [facility] [address] [place] [address] documented in this encounter Visit Diagnoses Not on filedocumented in this encounter Care Teams Bell Captain Relationship Specialty Start Date End Date Md Palafox MD PCP - General 06/02/10 04/25/12 documented as of this encounter
--- OUTSIDE RECORDS SUMMARY | 2024-05-04 11:58 | XMS_ITS | Encounter Summary ---
Author Organization [facility] Address [facility] [place] [address] Care Team Providers Care Pizza Baker Name Role Phone Sky Jensen MD Primary Care Provider Reason for Visit * Auth/Cert Specialty Diagnoses / Procedures Referred By Rashmi salomon Referred To Contact Procedures observation Referral ID Status Reason Start Date Expiration Date Visits Re quested Visits Authorized [id number] 1 1 Encounter Details Date Type Department Care Team (Latest Contact Info) Description 10/10/2015 12:15 PM EST - 10/10/2015 11:59 PM EST Hospital Encounter Non-Invasive [place] [address] Thang Isidro MD [facility] [place] [address] Vasovagal syncope Discharge Disposition: Home Social History Tobacco Use [...] Sig Dispensed Refills Start Date End Date fludrocortisone (FLORINEF) 0.1 mg Tablet 0.1 mg every morning. 0 08/30/2015 11/04/2015 midodrine (PROAMATINE) 2.5 mg Tablet Take 1 tablet by mouth 3 times daily. 90 tablet 0 10/10/2015 11/04/2015 fludrocortisone (FLORINEF) 0.1 mg Tablet Take 0.1 mg by mouth every other day. 11/04/2015 PROAIR HFA 90 mcg/actuation HFA Aerosol Inhaler as needed. 0 09/12/2014 07/29/2023 triamcinolone (KENALOG) 0.1 % Ointment 0 09/12/2014 07/29/2023 documented as of this encounter Plan of Treatment Not on file documented as of this encounter Procedures Procedure Name Priority Date/Time Associated Diagnosis Comments ZIOPATCH Routine 10/10/2015 12:57 PM EST Vasovagal syncope documented in this encounter Results * Ziopatch (10/10/2015 12:57 PM EST) Anatomical Region Laterality Modality Other Narrative 10/30/2015 12:14 PM EST [facility] ?ZIO PATCH ??REPORT Ordering Provider: ??Jonatan Price MD ?? Interpreting Physician: Jh Swanson MD ?? Baseline Date: ??10/10/15 ?? Indication for Zio Patch: ??Syncope, vasovagal Quality of recordings submitted: [] Acceptable [x] Moderate artifact [] Considerable artifact Rhythm interpretation: 14 day Zio patch recording. ??Mean HR 82 bpm, range 46-151 bpm. No atrial or ventricular ectopy. Triggered events X 5 correlated with NSR at 81-114 bpm. Diary entries X 2 (dizzy, lightheaded) correlated with NSR at 94-108 bpm. ?? Impression: ??Symptoms are associated with NSR; clinical correlation required. No dysrhythmias noted. Jh Swanson MD Thang Isidro MD CARDIAC SERVICES ORD ERABLES documented in this encounter Visit Diagnoses Diagnosis Vasovagal syncope Syncope and collapse documented in this encounter Care Teams Pizza Baker Relationship Specialty Start Date End Date Sky Jensen MD [address] [place] [address] PCP - General 12/03/14 07/22/20 documented as of this encounter
--- OUTSIDE RECORDS SUMMARY | 2024-05-04 11:58 | XMS_ITS | Encounter Summary ---
Author Organization [facility] Address [address] [place] [address] Care Team Providers Care Site Lead Name Role Phone None, Provider Primary Care Provider Unavailabl e Encounter Details Date Type Department Care Team (Late st Contact Info) Description 08/22/2020 Results Only [facility] - Main [address] [address] Unknown, Provider, Social History Tobacco Use Types [...] Date/Time Associated Diagnosis Comments COVID-19 TESTING Routine 08/22/2020 7:29 EST documented in this encounter Results * COVID-19 TESTING (08/22/2020 7:29 EST) Performing Lab [facility] 08/24/2020 10:40 [facility] Comment: Please indicate the Triage TierT2 Test performed or referred by The [address] [address] COVID-19 rt-PCR Result Not Detected Negative 08/24/2020 10:40 [facility] Comment: 2019-novel Coronavirus (2019-nCoV) not detected by [...] Food and Drug Administration's Emergency Use Authorization. 08/22/2020 7:29 EST 08/22/2020 7:29 EST Provider Unknown MICROBIOLOGY - GENER AL ORDERABLES [facility] [address] [place] [address] documented in this encounter Visit Diagnoses Not on filedocumented in this encounter Care Teams Site Lead Relationship Specialty Start Date End Date None, Provider PCP - General 10/02/15 documented as of this encounter
--- OUTSIDE RECORDS SUMMARY | 2024-05-04 11:58 | XMS_ITS | Encounter Summary ---
Author Organization [facility] [place] [address] Care Team Providers Care Buffing Wheel Former Automatic Name Role Phone Dony Vu APRN Primary Care Provide r Reason for Visit * Reason Onset Date Comments Other 09/27/2012 Rescheduled Sol ent Encounter Details Date Type Department Care Team (Late st Contact Info) Description 09/27/2012 [place] [phone] Ana Jamison Other (Rescheduled Patient) Social History Tobacco Use Types Packs/Day Years [...] * Telephone Encounter - Ana Jamison - 09/27/2012 1:00 PM EST Nurse ill, so called pt to reschedule her OEM. Rescheduled pt for 09/29/12 @ 9 am. Pt did not need new letter; knows to arrive at 4T at 8:30 a.m. Knows to fast for 6 hrs prior to procedure. -bcj documented in this encounter Plan of Treatment Not on file documented as of this encounter Visit Diagnoses Not on filedocumented in this encounter Care Teams Buffing Wheel Former Automatic Relationship Specialty Start Date End Date Dony Vu APRN [address] [place] [address] PCP - General 09/29/12 12/02/14 documented as of this encounter
--- OUTSIDE RECORDS SUMMARY | 2024-05-04 11:58 | XMS_ITS | Encounter Summary ---
Author Organization [facility] [place] [address] Care Team Providers Care Contact Assembler Name Role Phone Cornelia Hernandez Primary Care Provider [phone] Reason for Visit * Reason Comments Plantar Warts Encounter Details Date Type Department Care Team (Late st Contact Info) Description 11/28/2020 4:00 PM EST Office Visit [facility]iatry at [facility] [place] [address] Brook Michelle DPM [facility] [place] [address] Metatarsalgia, left foot; Hyperkeratosis Social History Tobacco Use Types Packs/Day Years [...] documented as of this encounter Patient Instructions * Patient Instructions* Brook Michelle DPM - 11/28/2020 4:00 PM EST POWERSTEP PINNACLE PLUS MET ORTHOTICS documented in this encounter Progress Notes * Brook Michelle DPM - 11/28/2020 4:00 PM EST Outpatient Foot Care Clinic Note Name: Lori Cruz Age:30 y.o. MR#: [id number] Date of Service: 11/28/2020 SUBJECTIVE: Lori Cruz [...] feet resolved. Right foot minimal hyperkeratosis. Left foothyperkeratotic skin lesion measuring approximately 0.5 x 0.5 cm. No new lesions. No signs of infection. VASC: DP/PT palpable. No edema. No rest pain. No color changes. No claudication. NEURO: Sharp/dull intact. MSK: Mild tenderness on exam sub left fifth metatarsal head and with range of motion. Ambulatory. No weakness or wasting. ASSESSMENT: Painful chronic plantar warts, bilaterally-resolved Hyperkeratosis left foot Metatarsalgia left foot PLAN: Patient reexamined in clinic today. At this time warts have significantly improved, however discussed callus development, left greater than right. Encouraged use of pumice stone after shower. Advisedpatient to begin using orthotics with arch support and offloading metatarsal pads. Recommendation pr ovided. Continue with supportive shoe gear. If any worsening seek prior medical care. Answered all questions. Patient verbalized understanding of all instructions. FOLLOW UP: As scheduled or sooner if any concerns or changes arise Brook Michelle DPM Real Estate Appraiser Supervisor, [facility] documented in this encounter Plan of Treatment Not on file documented as of this encounter Visit Diagnoses Diagnosis Metatarsalgia, left foot Hyperkeratosis Acquired keratoderma documented in this encounter Care Teams Contact Assembler Relationship Specialty Start Date End Date Cornelia Hernandez PA [address] [address] PCP - General Family Medicine 07/23/20 06/03/23 documented as of this encounter
--- OUTSIDE RECORDS SUMMARY | 2024-05-04 11:58 | XMS_ITS | Encounter Summary ---
Author Organization [facility] [place] [address] Care Team Providers Care Elastic Attacher Coverstitch Name Role Phone Cornelia Hernandez Primary Care Provider Reason for Visit * Reason Comments Plantar Warts Encounter Details Date Type Department Care Team (Latest Contact Info) Description 01/23/2021 4:00 PM EDT Office Visit Podiatry at [facility] [place] [address] Brook Michelle DPM [facility] [place] [address] Metatarsalgia of both feet; Hyperkeratosis Social History Tobacco Use Types Packs/Day [...] Progress Notes * Brook Michelle DPM - 01/23/2021 4:00 PM EDT Outpatient Foot Care Clinic Note Name: Lori Cruz Age:30 y.o. MR#: [id number] Date of Service: 01/23/2021 SUBJECTIVE: Lori Cruz is a 30 y.o. female who returns to clinic with chief complaint of pain in the ball of both feet. Rates pain as 4 out of 10 today. Patient has history of previous warts which resolved with treatment, however has residual calluses. Has been soaking in vinegar as instructedby dermatology. States she received orthotics a few weeks ago and has begun use with improvement noted. No other pedal complaints. No constitutional symptoms [...] Gatherings with Friends and Family: ??? Attends Temple Services: ??? Active Member of Clubs or [...] reduction. Can increase offloading padding in future ifpain and lesions continue to persist. Continue with soaking as per dermatology. Continue supportiveshoe gear and avoidance of barefoot ambulation. Encouraged use of moisturization regularly with pumice stone. If any worsening seek prompt medical care. Patient verbalized understanding of all instructions. FOLLOW UP: 3 months or sooner if any concerns arise Brook Michelle DPM Advertising Job Titles, [facility] documented in this encounter Plan of Treatment Not on file documented as of this encounter Visit Diagnoses Diagnosis Metatarsalgia of both feet Enthesopathy of ankle and tarsus, unspecified Hyperkeratosis Acquired keratoderma documented in this encounter Care Teams Elastic Attacher Coverstitch Relationship Specialty Start Date End Date Cornelia Hernandez PA [address] [address] PCP - General Family Medicine 07/23/20 06/03/23 documented as of this encounter
--- OUTSIDE RECORDS SUMMARY | 2024-05-04 11:58 | XMS_ITS | Encounter Summary ---
Author Organization [facility] [place] [address] Care Team Providers Care Balancer Name Role Phone Chacha Jensen MD Primary Care Provider Reason for Visit * Auth/Cert Specialty Diagnoses / Procedures Referred By Rashmi salomon Referred To Contact Procedures observation Referral ID Status Reason Start Date Expiration Date Visits Re quested Visits Authorized [id number] 1 1 Encounter Details Date Type Department Care Team (Late st Contact Info) Description 10/10/2015 11:30 AM EST Office Visit Cardiology at [address] [address] Jonatan Price MD [facility] [address] Vasovagal syncope Social History Tobacco Use Types Packs/Day Years [...] EST Pulse 81 10/10/2015 11:19 AM EST irre g Temperature - - Respiratory Rate - - Oxygen Saturation 100% 10/10/2015 11:19 AM EST on room air Inhaled Oxygen Concentration - - Weight 78 kg (172 lb) 10/10/2015 11:19 AM EST Height 175.3 cm (5' 9) 10/10/2015 11:19 AM EST Body Mass Index 25.4 10/10/2015 11:19 AM EST documented in this encounter Progress Notes * Navneet Garcia MD - 11/10/2015 2:09 PM EST ___ Cardiac Electrophysiology Attending Addendum Although I provided general supervision of Dr. Rogers during this patient encounter, for purposes of billing I did not directly provide care, and I was not involved in the clinical decision making (but the plan of care appears to be reasonable). ___ Navneet Garcia MD * Navneet Garcia MD - 11/10/2015 2:08 PM EST Cardiac Electrophysiology Attending Addendum Although I provided general supervision of Dr. Price during this patient encounter, for purposes of billing I did not directly provide care, and I neither interviewed nor examined the patient. ___ Navneet Garcia MD * Navneet Garcia MD - 10/18/2015 7:49 AM EST Cardiac Electrophysiology Attending Addendum Although I provided general supervision of Dr. Price during this patient encounter, for purposes of billing I did not directly provide care, and I neither interviewed nor examined the patient. ___ Navneet Garcia MD * Jonatan Price - 10/10/2015 7:27 PM EST [...] She currently takes fludrocortisone 0.1 mg qAM and0.1mg every other evening. She still has some [...] She had a typical Bezold-Jarisch reflex, with suddenheart rate-slowing and hypotension in response to combination [...] has little warning. Therefore, I think she deserves further evaluation, to exclude other causes: 1) She will undergo further cardiac rhythm evaluation with a Ziopatch monitor (for up to 2 weeks). This was applied in our clinic today. 2) She will undergo an exercise stress test, to assess for exertional arrhythmias or other exertional problems. I prefer her to have this test done at [facility], so I may review the strips. 3) Typically, we recommend that patients be evaluated for adrenal insufficiency (usually with cosyntropin stimulation testing) and pheochromocytoma (with serum or urine metanephrines). 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 I encouraged the patient to follow up in their office, to pursue this specialty testing (our office cannot perform cosyntropin stimulation testing). She was reluctant to proceed with this, she will discuss this with her PCP Dr. Jensen. However, her episodes do mostly sound like neurocardiogenic syncope. I recommended she optimize hertreatment in the following ways: 1) Start wearing compression stockings, up to the thighs. The patient seemed reluctant to accept this recommendation. 2) minimize fludrocortisone dosing to 0.1 mg daily, to minimize side effects of weight gain and headaches. 3) Start low dose midodrine, 2.5 mg bid-tid, due to recurrent events. This can be increased up to 10 mg tid, by Dr. Jensen. She continues to [...] Price MD Cardiac Electrophysiology Fellow Physician Pager [phone] Daytime documented in this encounter Plan of Treatment Not on file documented as of this encounter Results * Stress Test, Exercise (Treadmill) (11/01/2015 9:44 AM EST) Anatomical Region Laterality Modality Other Thang Isidro MD CARDIAC SERVICES ORD ERABLES * Ziopatch (10/10/2015 12:57 PM EST) Anatomical Region Laterality Modality Other Narrative 10/30/2015 12:14 PM EST [facility] ?ZIO PATCH ??REPORT Ordering Provider: ??Jonatan [...] collapse documented in this encounter Care Teams Balancer Relationship Specialty Start Date End Date Chacha Jensen MD [address] [place] [address] PCP - General 12/03/14 07/22/20 documented as of this encounter
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
--- OUTSIDE RECORDS SUMMARY | 2024-05-04 11:58 | XMS_ITS | Encounter Summary ---
Author Organization [facility] [place] [address] Care Team Providers Care Data Integration Developer Name Role Phone Sky Jensen MD Primary Care Provider [phone] Encounter Details Date Type Department Care Team (Late st Contact Info) Description 01/21/2015 External Results [place] [address] Maldonado Elizondo MD [facility] [place] [address] Social History Tobacco Use Types Packs/Day Years [...] on filedocumented in this encounter Care Teams Data Integration Developer Relationship Specialty Start Date End Date Sky Jensen MD [address] [place] [address] PCP - General 12/03/14 07/22/20 documented as of this encounter
--- OUTSIDE RECORDS SUMMARY | 2024-05-04 11:58 | XMS_ITS | Encounter Summary ---
Author Organization [facility] [place] [address] Care Team Providers Care Shellfish Grower Name Role Phone Cornelia Hernandez Primary Care Provider Reason for Visit * Reason Comments Plantar Warts Encounter Details Date Type Department Care Team (Late st Contact Info) Description 04/24/2021 4:00 PM EDT Office Visit Podiatry at [facility] [place] [address] Brook Michelle DPM [facility] [place] [address] Pitted keratolysis; Metatarsalgia, left foot Social History Tobacco Use Types Packs/Day Years [...] Progress Notes * Brook Michelle DPM - 04/24/2021 4:00 PM EDT Outpatient Foot Care Clinic Note Name: Lori Cruz Age:31 y.o. MR#: [id number] Date of Service: 04/24/2021 SUBJECTIVE: Lori Cruz is a 31 y.o. female who returns to clinic with changes to bottom of both feet. Patient relates being active on her feet and outdoors. No drainage, redness, pus, or other interval changes. Relates experiencing discomfort at site of previous warts. Rates discomfort in feettoday as 4 out of 10. No other pedal complaints today. No constitutional symptoms reported. SH: [place] [facility] [place] Allergies Allergen Reactions ??? Fruit Extracts Anaphylaxis [...] Types: Cigarettes ??? Smokeless tobacco: Never Used Vaping Use ??? Vaping Use: Never used Substance and Sexual Activity ??? Alcohol use: [...] Week: ??? Minutes of Exercise per Session: No reported Family History Problem Relation Age [...] on file prior to visit. ROS: SKIN: + Skin changes MSK: + pain The remainder of 10 ROS were reviewed and negative. OBJECTIVE: GEN: Patient is awake, alert, NAD DERM: Multiple sites of central pits noted plantar bilateral forefoot with mild hyperkeratosis at site of previous verruca plantar left fifth metatarsal. No absent skin lines. No lesions right subfifth metatarsal. No erythema. No fluctuance. No proximal streaking. No purulence. No malodor. VASC: No rest pain. No color changes. DP/PT palpable. Capillary refill 3 seconds. NEURO: Sensation intact to light touch no deficits. MSK: Mild tenderness on exam sub fifth metatarsal head bilaterally. No other sites of palpable pain. Active range of motion noted of lower extremities. Ambulatory. ASSESSMENT: Pitted keratolysis bilaterally Metatarsalgia bilaterally, history of plantar warts PLAN: Patient reexamined in clinic today. Discussed with patient conditions and treatment options. Prescribed clindamycin 1% topical to pharmacy of choice. Proper use reviewed. Monitor site for any worsening. Seek prompt medical care if this occurs. Discussed for metatarsalgia I would strongly recommend using orthotics with offloading pad. Explained current shoe gear is inadequate and does not have offloading as needed for affected site. Sample offloading pads dispensed. Proper use reviewed. If any changes or concerns contact clinic. Patient verbalized understanding. FOLLOW UP: 4 to 6 weeks telehealth visit or sooner if any concerns arise or any worsening Brook Michelle DPM Home Based Assistant, [facility] documented in this encounter Plan of Treatment Not on file documented as of this encounter Visit Diagnoses Diagnosis Pitted keratolysis Other specified erythematous condition Metatarsalgia, left foot documented in this encounter Care Teams Shellfish Grower Relationship Specialty Start Date End Date Cornelia Hernandez PA [address] [place] [address] PCP - General Family Medicine 07/23/20 06/03/23 documented as of this encounter
--- OUTSIDE RECORDS SUMMARY | 2024-05-04 11:58 | XMS_ITS | Encounter Summary ---
Author Organization Formerly [facility] [place] [address] Care Team Providers Care Retail Customer Service Specialist Name Role Phone Sky Jensen MD Primary Care Provider Reason for Visit * Consultation (Routine) - Authorized Specialty Diagnoses / Procedures Referred By Rashmi salomon Referred To Contact Gastroenterology Diagnoses Other gastritis without bleeding Other specified postprocedural states Acquired absence of other specified parts of digestive tract Acquired absence of both cervix and uterus Sandie Panda, DO [address] [place] [address] [facility] [address] [place] [address] Referral ID Status Reason Start Date Expiration Date Visits Requested Visits Authorized [id number] Authorized Consult, Test & Treat PCP Updated and/or Approved 06/04/2023 06/03/2024 6 6 Encounter Details Date Type Department Care Team (Late st Contact Info) Description 07/29/2023 4:00 PM EST Office [place] [phone] Elvie Osorio MD [facility] [place] [address] Diarrhea, unspecified type (Primary Dx); RUQ pain Social History Tobacco Use Types Packs/Day [...] Sign Reading Time Taken Comments Blood Pressure 119/64 07/29/2023 3:16 PM EST Pulse 71 07/29/2023 3:16 PM EST Temperature - - Respiratory Rate - - Oxygen Saturation - - Inhaled Oxygen Concentration - - Weight 92.8 kg (204 lb 8 oz) 07/29/2023 3:16 PM EST Height 180.3 cm (5' 11) 07/29/2023 3:16 PM EST Body Mass Index 28.52 07/29/2023 3:16 PM EST documented in this encounter Progress Notes * Elvie Osorio MD - 07/29/2023 4:00 PM EST [facility] Division of Gastroenterology and Hepatology Outpatient Consultation Reason for Visit: Abdominal pain Referred by Sandie Panda History of Present Illness: Lori Cruz is a 33 y.o. female with past medical history significant for GERD s/p Glenn who is referred to GI for abdominal pain. Lori believes her symptoms all started after her CCY 2020. She had CCY for abdominal pain and positive HIDA scan. Pathology showed chronic cholecystitis. At that time she described a sharp pain inRUQ that wrapped around her back. This pain did not improve after her surgery. She then started having orange diarrhea, and was started on metamucil and a low-residue diet. She still avoids nuts and dairy because this worsens pain. Pain is worse after eating, usually 20-30 minutes after. Occasional N/V. With the pain she also experiences pyrosis; rare regurgitation. No weight loss. BM now vary, up to 5x a day, solid but changes to loose, orange. Some foods make diarrhea worse, like pork, dairy, nuts, olive oil, butter, creamy salad dressings. No blood in stool. She reports one episode of presumed pancreatitis when she went to ED. Lipase in 500s per patient this past spring when she went to ED for her pain, which at this time radiating more towards left sideinstead of right. Did not radiate to the back. She remembers a low-grade fever to 100-101. No imaging available to me. The only thing she remembers was drinking five milkshakes right before this. Hasrare etoh. No tobacco. Daily marijuana. EGD two months ago showed gastritis on biopsies, started on carafate and pantoprazole 40mg BID but takes this as prn, usually 4 x weekly. Dawes does not like to take medications and wants to avoid starting any new ones today. Zofran- as needed, rarely Compazine- as needed, rarely No NSAIDs Not on Imodium- tried right after CCY with metamucil but slowly came off it CMP normal Lyme Ab negative Celiac studies negative Past Endoscopy: 2011 EGD/[facility]: normal EGD, [facility] off PPI w/ evidence of reflux OSH EGD 04/2023: scope advanced to proximal jejunum, biopsied (normal) gastric and esophageal biopsies showed gastritis, no HP or BE. Wrap appeared intact. A. JEJUNUM, PROXIMAL, BIOPSY: - Small intestinal mucosa with no significant diagnostic abnormalities. B. STOMACH, ANTRUM, BIOPSY: - Antral mucosa with reactive (chemical) gastropathy. - Negative for Helicobacter pylori on H&E stained sections. C. GASTROESOPHAGEAL JUNCTION, BIOPSY: - Squamocolumnar mucosa with mild reactive changes. - Negative for intestinal metaplasia and dysplasia. D. ESOPHAGUS, DISTAL, BIOPSY: - Squamous mucosa with mild reactive changes. Relevant Studies/Imaging: MRCP OSH: normal 2012 HREM 1. Hypotensive LES. 2. Normal LES relaxation. 3. Normal UES resting pressure. 4. Normal UES relaxation. 5. Normal motility in the body of the esophagus. Past Medical History: Diagnosis Date ADHD (attention deficit hyperactivity disorder) H/O female hirsutism History of repair of hiatal hernia Hyperandrogenism Mild exercise-induced asthma PSHx Past Surgical History: Procedure Laterality Date APPENDECTOMY GASTRIC FUNDOPLICATION ILIOTIBIAL BAND SURGERY PELVIC LAPAROSCOPY September 2015 removal of fallopian tubes TONSILLECTOMY AND ADENOIDECTOMY TUBAL LIGATION UPPER GI ENDOSCOPY, EXAM 08/01/2012 UPPER GI ENDOSCOPY performed by JOSE DANIEL MURO at [facility] ENDOSCOPY Hysterectomy 2022 Social History: reports that she has quit smoking. Her smoking use included cigarettes. She has a 5.00 pack-year smoking history. She has never used smokeless tobacco. She reports current alcohol useof about 3.0 standard drinks of alcohol per week. She reports that she does not use drugs. 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 In [employer]. No kids. Enjoys snowboarding, hiking Family History: family history includes Coronary Artery Disease (age of onset: 60) in her maternal grandmother; Heart Failure in her maternal grandmother; Seizure Disorder in her sister; Syncope in her maternal aunt, maternal grandmother, and sister. No Fhx CRC, liver disease, pancreas, IBD Current Outpatient Medications Medication Sig Dispense Refill sucralfate (Carafate) 1 gram tablet Take 1 g by mouth 4 times daily. pantoprazole EC (Protonix) [address] tablet Take 40 mg by mouth as needed. clindamycin (CLINDAGEL) 1 % Gel Apply topically 2 times daily. (Patient not taking: Reported on 07/29/2023) 30 g 0 fluorouraciL (EFUDEX) 5 % Cream Apply 1 gram thin layer to affected sites once daily. Cover with bandaid. (Patient not taking: Reported on 07/29/2023) 40 g 0 EPINEPHrine 0.3 mg/0.3 mL Auto-Injector Inject 0.3 mg into the muscle once. PROAIR HFA 90 mcg/actuation HFA Aerosol Inhaler as needed. 0 triamcinolone (KENALOG) 0.1 % Ointment 0 No current facility-administered medications for this visit. Allergies Allergen Reactions Latex, Natural Rubber Fruit Extracts Anaphylaxis Chest tightness, blotchiness, and then stops breathing Per patient ( kiwi fruit) cant touch them or eat them Banana Ibuprofen Other (See Comments) Nose bleeds Lidocaine Itching Nsaids (Non-Steroidal Anti-Inflammatory Drug) Other (See Comments) Nosebleeds Review of Systems: Constitutional: No weight loss HEENT: No visual changes, URI symptoms Cardio: No chest pain/palpitations Resp: No cough, no SOB Hem/Lymph: no new lumps or bumps on body GI: see HPI : no dysuria Skin: no new rashes Musculoskeletal: no new joint pains Neuro: no new numbness, weakness in extremities All other systems negative except as above in HPI Physical Examination: BP 119/64 (BP Location (NBP): Right arm, Patient Position: Sitting, BP Cuff Sizes: Adult (25-34 cm)) Pulse 71 Ht 180.3 cm (5' 11) Wt 92.8 kg (204 lb 8 oz) BMI 28.52 kg/m?? General: Pleasant, cooperative, no acute distress HEENT: NC/AT, anicteric sclera, MMM Chest: CTAB, no wheeze, rale or rhonchi CVS: Regular rate and rhythm, normal s1/s2, No murmurs, rubs or gallops ABD: soft, normoactive bowel sounds, non-tender, non-distended Extremities: Warm and well perfused. No edema Skin: No rash or lesion, no jaundice Neuro: Grossly intact, moves all extremities. Labs: Reviewed in EDH/Scan Docs No results found for: WBC, HGB, HCT, MCV, PLATELET Chemistry No results found for: NA, K, CL, CO2, BUN, CREATININE No results found for: CALCIUM, ALKPHOS, AST, ALT, BILITOT IMPRESSION:Lori Cruz is a 33 y.o. female with past medical history significant for GERD s/p Glenn who is referred to GI for abdominal pain. Chronic RUQ pain worse after eating; this is likely unrelated to GB pathology as her pathology onlyshowed chronic cholecystitis without stones, and pain has persisted since surgery. Now c/b post-surgical diarrhea that has improved, but requires strict diet control which is what is bothering the patient the most, misses eating a lot of higher-fat foods. We discussed possible symptomatic trials for this, such as Imodium or cholestyramine but Lori is insistent she does not want to take more medications because she doesn't like to take something daily. I do recommend stool testing as a baseline to evaluate for inflammation, O&P (has used well water for last 10 years). If negative, we can proceed with expectant management but otherwise may consider colonoscopy, which Lori is in agreement with. She would like to stick to dietary modifications alone for now. In terms of her pain, we discussed possible visceral hypersensitivity vs. abdominal wall pathology.She is again hesitant to proceed with certain trials including trigger point injections or low-doseTCA, so agreed to continue with expectant management as above but can f/up to see if she change hermind. We did discuss possible GERD component, and that she is at risk for recurrence given her symptoms requiring Glenn, and associated pyrosis with pain. She only takes PPI as prn, but carafate is daily and does not help. Will plan to discontinue carafate but schedule her PPI, which she is amenable to doing. RECOMMENDATIONS: -continue low-fat, dairy-free diet -pantoprazole 40mg BID 30 minutes before meal for 8 week trial -discontinue carafate -calprotectin -O&P -consider colonoscopy if calprotectin is elevated -consider Pain clinic referral if patient amenable -medications to consider if patient amenable: amitriptyline, dicyclomine, IBGard, rifaximin course,cholestyramine Follow up 6-8 months 60 minutes spent in chart review, [id number] time and coordination of care with the patient today. Elvie Osorio MD Gastroenterology and Hepatology [place] [id number] P: [phone] F: [phone] CC Sky Jensen MD [address] [place] [id number] documented in this encounter Plan of Treatment Not on file documented as of this encounter Visit Diagnoses Diagnosis Diarrhea, unspecified type- Primary RUQ pain Abdominal pain, right upper quadrant documented in this encounter Care Teams Retail Customer Service Specialist Relationship Specialty Start Date End Date Sky Jensen MD [address] [place] [address] PCP - General General Internal Medicine 06/04/23 documented as of this encounter
--- OUTSIDE RECORDS SUMMARY | 2024-05-04 11:58 | XMS_ITS | Encounter Summary ---
Author Organization [facility] [place] [address] Care Team Providers Care Crane Mechanic Name Role Phone Sky Jensen MD Primary Care Provider [phone] Reason for Visit * Reason Onset Date Comments Dizziness 10/22/2015 Encounter Details Date Type Department Care Team (Late st Contact Info) Description 10/22/2015 Telephone Cardiology at [address] [place] [address] Iman Hamilton RN Dizziness Social History Tobacco Use Types Packs/Day Years [...] encounter Miscellaneous Notes * Telephone Encounter - Iman Hamilton RN - 10/22/2015 8:46 AM EST Received called from [facility] ED - patient evaluated there for her [...] her to have this test done at [facility], so I may review the strips. 3) Typically, we recommend that patients be evaluated for adrenal insufficiency (usually with cosyntropin stimulation testing) and pheochromocytoma (with serum or urine metanephrines). 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 I encouraged the patient to follow up [...] Price MD Cardiac Electrophysiology Fellow Physician Pager [phone] Daytime She is taking meds as she [...] on filedocumented in this encounter Care Teams Crane Mechanic Relationship Specialty Start Date End Date Sky Jensen MD [address] [place] [address] PCP - General 12/03/14 07/22/20 documented as of this encounter
--- OUTSIDE RECORDS SUMMARY | 2024-05-04 11:58 | XMS_ITS | Encounter Summary ---
Author Organization [facility] [place] [address] Care Team Providers Care Motorboat Operator Name Role Phone Jh Guillaume MD Primary Care Provider [phone] Encounter Details Date Type Department Care Team (Late st Contact Info) Description 08/22/2012 [place] [address] Meghan Chilel MD [facility] [place] [address] Social History Tobacco Use Types Packs/Day Years Used Date Smoking Tobacco: Every Day Alcohol Use Standard Drinks/Week Comments No 0 (1 standard drink = 0.6 oz pur e alcohol) Sex and Gender Information Value Date Recorded Sex Assigned at Not on file Gender Identity Not on file Sexual Orientation Not on file documented as of this encounter Miscellaneous Notes * Telephone Encounter - Meghan Chilel H - 08/22/2012 1:27 PM EST Received a call from patient's PCP, Dr. James, re: patient Anthony. 22 y.o F, with dyspepsia, regurgitation, heartburn sx, underwent an EGD 08/01/12 with Garcia placement. EGD:08/01/12 - Normal esophagus, Z-line regular, 40 cm from the incisors, hiatus hernia, normal stomach, normal examined duodenum. Garcia revealed significant reflux off of medications. Dr. James was inquiring about a manometry test he had ordered. Patient reported to him it was not done because she is allergic to topical lidocaine. She is not on any acid suppressive therapy, he said patient had lots of financial problems/insurance problems. I suggested PPI at least once a day, OTC. I will reorder manometry test per PCP's request. I have not seen this patient. documented in this encounter Plan of Treatment Not on file documented as of this encounter Visit Diagnoses Diagnosis Regurgitation Vomiting alone documented in this encounter Care Teams Motorboat Operator Relationship Specialty Start Date End Date Jh Guillaume MD [address] [place] [address] PCP - General 08/01/12 09/28/12 documented as of this encounter
--- OUTSIDE RECORDS SUMMARY | 2024-05-04 11:58 | XMS_ITS | Encounter Summary ---
[place] [address] Care Team Providers Care Radiation Control Technician Name Role Phone Cornelia Hernandez Primary Care Provider [phone] Encounter Details Date Type Department Care Team (Latest Contact Info) Description 07/25/2020 5:33 PM EST - 07/25/2020 11:59 PM EST Hospital [place] [address] Discharge Disposition: Home Social History Tobacco Use [...] Date End Date EPINEPHrine 0.3 mg/0.3 mL Auto-Injector Inject 0.3 mg into the muscle once. 07/29/2023 PROAIR HFA 90 mcg/actuation HFA Aerosol Inhaler as needed. 0 09/12/2014 07/29/2023 triamcinolone (KENALOG) 0.1 % Ointment 0 09/12/2014 07/29/2023 documented as of this encounter Plan of Treatment Not on file documented as of this encounter Procedures Procedure Name Priority Date/Time Associated Diagnosis Comments COVID-19 PCR Routine 07/25/2020 10:26 AM EST documented in this encounter Results * COVID-19 PCR (07/25/2020 10:26 AM EST) SARS-CoV-2 RNA Not Detected Not Detected [facility] Comment: This result should be interpreted in combination with the clinical observations, patient history and epidemiological information in making a final diagnosis. For testing of asymptomatic individuals, assay performance characteristics and clinical utility have not been evaluated. Testing for SARS-CoV-2 (Severe acute respiratory syndrome coronavirus 2, formerly known as 2019 novel coronavirus or 2019-nCoV) to aid in the diagnosis of COVID-19 is performed using the [employer] RealTime SARS-CoV-2 Assay as authorized by the FDA Emergency Use Authorization (EUA). This EUA assay is intended for In-vitro Diagnostic (IVD) use with respiratory specimens such as nasopharyngeal swabs collected from individuals during the acute phase of infection. This assay is performed based on the instructions for use provided by [employer] and additional guidance provided by [facility] and FDA. Testing is performed in the [facility] within the Department of Pathology and Laboratory Medicine at [facility], certified under the Clinical Laboratory Improvement Amendments of 1988 (CLIA), 42 U.S.C. 263a, to perform high complexity tests. Assay performance has been verified according to clinical laboratory regulatory requirements for use with specimens collected from individuals suspected of COVID-19. Test results are provided above. A result of ? Not Detected? indicates that the viral RNA target is not present above the limit of detection, but does not preclude SARS-CoV-2 infection. False negative results may occur if a specimen is improperly collected, transported or handled; if amplification inhibitors are present; or if inadequate numbers of viral particles are present in the specimen. When a diagnostic test is negative, the possibility of a false negative result should be considered in the context of a patient? s recent exposures and the presence of clinical signs and symptoms consistent with COVID-19. A result of ? Detected? indicates that RNA from SARS-CoV-2 was detected and the patient is infected. As required or requested by public health authorities, positive specimens may be sent for additional testing. Positive and negative predictive values for this test are highly dependent on disease prevalence. A result of ? Invalid? indicates that neither the viral RNA targets nor the internal control target was detected. An invalid result suggests the presence of inhibitors. Recollection and re-testing is recommended in the case of an invalid result. CDC COVID-19 criteria for testing on human specimens and clinical management guidance information are available at the CDC Coronavirus Disease 2019 (COVID-19) webpage under ? Information for Healthcare Professionals? (https://www.cdc.gov/coronavirus/2019-ncov/hcp/index.html) Additional information about this and other EUA tests can be found in provider and patient fact sheets at the following FDA website: https://www.fda.gov/medical-devices/zlhmjvrebuy-ldroxnb-5944-ukawo-57-nsmubqqiq- use-a pcripoebvajnq-tmhbtqq-exjrnvt/fjgif-vnjawzpmokg-ystk SARS-CoV-2 RNA Source [employer] Swab [facility] Nasopharyngeal swab (specimen) Other / Unknown 07/25/2020 10:26 AM EST 07/27/2020 5:01 AM EST Narrative Resulting Agency Comment Spec In Lab Rina Mccain INTERPRETIVE PROGRAM COORDINATOR MOLECULAR ORDERABLES Performing Organization Address City/State/[facility] Co de Phone Number [facility] [place] [place] [address] documented in this encounter Visit Diagnoses Not on filedocumented in this encounter Care Teams Radiation Control Technician Relationship Specialty Start Date End Date Cornelia Hernandez PA [address] [place] [id number] PCP - General Family Medicine 07/23/20 06/03/23 documented as of this encounter
--- OUTSIDE RECORDS SUMMARY | 2024-05-04 11:58 | XMS_ITS | Encounter Summary ---
Author Organization [facility] Address [address] [place] [address] Care Team Providers Care Hr Coordinator Name Role Phone Md RAVI Palafox Primary Care Provider Steve isaac Encounter Details Date Type Department Care Team (Late st Contact Info) Description 04/22/2012 Results Only [facility] [phone] Osman James, DO [address] [place] [address] Social History Tobacco Use Types Packs/Day Years Used Date Smoking Tobacco: Never Assessed Sex and Gender Information Value Date Recorded Sex Assigned at Not on file Gender Identity Not on file Sexual Orientation Not on file documented as of this encounter Plan of Treatment Not on file documented as of this encounter Procedures Procedure Name Priority Date/Time Associated Diagnosis Comments SURGICAL PATHOLOGY Routine 04/22/2012 0:00 EDT documented in this encounter Results * SURGICAL PATHOLOGY (04/22/2012 0:00 EDT) Pathology Report: SURGICAL PATHOLOGY REPORT Reports generated via electronic interface contain original data; however they are lacking the format of the original report. Caution should be taken when reading/interpreti ng unformatted reports. Name: ? LESLEY HAYWARD ? Accession #: ? [id number] ? : ? 1990 (Age: 22) ??F ? Collect Date: ? 04/22/2012 ? Location: ? [facility] ? Receive Date: ? 04/22/2012 ? Provider: OSMAN JAMES DO Copy to: [facility]OR[facility] [employer] SPINNING MULE TENDER ? Final Pathologic Diagnosis: ? Stomach, antrum, biopsy: 1. ?Mild, reactive gastropathy. 2. ? No Helicobacter pylori identified on H&E stain. Document reviewed and electronically signed by: RUCHI CARLOS MD Report ??Date: 04/26/2012 16:37 By the signature above, the attending physician certifies that he/she has personally conducted a gross and/or microscopic examination of the described specimens and rendered or confirmed the above diagnosis. Specimen(s) Received: ? Gastric antrum bxs Clinical History: ? Persistent dyspepsia/persiste nt GERD Gross Description: ? Received in formalin labelled O'Carloz, [place] and gastric antrum biopsies are three pink-klein, irregular soft tissues ranging from 0.2 x 0.2 x 0.1 cm to 0.5 x 0.3 x 0.1 cm, submitted in toto in a single cassette. ??(Fabiana Silva)/[facility] End of Report [facility] 04/22/2012 04/22/2012 22: 14 EDT Osman James DO PATHOLOGY ORDERABLES [facility] [address] [place] [address] documented in this encounter Visit Diagnoses Not on filedocumented in this encounter Care Teams Hr Coordinator Relationship Specialty Start Date End Date Md Palafxo MD PCP - General 06/02/10 04/25/12 documented as of this encounter
--- OUTSIDE RECORDS SUMMARY | 2024-05-04 11:58 | XMS_ITS | Encounter Summary ---
Author Organization [facility] [place] [address] Care Team Providers Care Marine Machinist Name Role Phone Cornelia Hernandez Primary Care Provider [phone] Reason for Visit * Reason Comments Plantar Warts * Consultation (Routine) - Specialty Diagnoses / Procedures Referred By Rashmi salomon Referred To Contact Podiatry Diagnoses Plantar wart Rina Mccain, CONSTRUCTION SALES MANAGER [address] [place] [address] [facility] [place] [address] Referral ID Status Reason Start Date Expiration Date V isits Requested Visits Authorized [id number] Consult, [facility] PCP Updated and/or Approved 07/05/2020 12/13/2020 6 6 Encounter Details Date Type Department Care Team (Late st Contact Info) Description 09/26/2020 2:30 PM EST Office [place] [address] Brook Michelle DPM [facility] [place] [address] Plantar wart; Pain in both feet; Metatarsalgia of both feet Social History Tobacco Use Types Packs/Day Years [...] * Patient Instructions* Brook Michelle DPM - 09/26/2020 2:30 PM EST Images from the original note were not included. [employer] [place] [employer] Patient Education Plantar Warts: Care Instructions Your Care Instructions A plantar wart is a harmless skin growth. Plantar warts occur on the bottom of your feet and may bepainful when you walk. A virus makes the [...] doctor may recommend that you use an ayue-loe-ryaernu treatment. These include salicylic acid or duct [...] a good idea to know your test resultsand keep a list of the medicines you [...] patch. You can buy these at a [employer]. Put the pad around the plantar wart so that it relieves pressure on the wart. You also can place pads or cushions in your shoes to make walking more comfortable. ?? Take an qyai-dts-apjxchy medicine, such as acetaminophen (Tylenol), ibuprofen (Advil, Motrin), or naproxen (Aleve) if you have pain. Read and follow all instructions on the label. ?? Do not take two or more pain medicines at the same time unless the doctor told you to. Many painmedicines have acetaminophen, which is Tylenol. Too much [...] Where can you learn more? Visit our [employer] information library at [email or web address]://[email or web address] You can also view health information on [employer], your personal patient account. Log in or sign uptoday. Enter S429 in the search box to learn more about Plantar Warts: Care Instructions. Current as of: March 21, 2020?Content Version: 12.7 ?? [id number] [employer]. Care instructions adapted under license by [facility]. If you have questions about a medical condition or this instruction, always ask your healthcare professional. [employer] disclaims any warranty or liability for your use of this information. documented in this encounter Progress Notes * Brook Michelle DPM - 09/26/2020 2:30 PM EST [facility] Note Name: Lori Cruz Age:30 y.o. MR#: [id number] Date of Service: 09/26/2020 SUBJECTIVE: Lori Cruz is a pleasant 30 y.o. female who presents to the clinic today with chief complaint of warts affecting both feet x 5+ years. Rates pain as being 3/10, worsened with direct pressure to sites/stairs/ambulation. Relates being active on her feet and reports discomfort persisting despite in the past undergoing cryotherapy, topical medications, and compound creams. Relates following up with dermatology in the past. Denies any recent orthotics. Relates small wart on left hand. No other sites of involvement. No redness, swelling, odors, [...] file Gets together: Not on file Attends adventism service: Not on file Active member of [...] 0.5 x 0.5 cm right fifth metatarsal head, upon debridement absent skin lines consistent with verruca. [...] treatment options for management discussed at length includingsurgical curettage with cauterization. Discussed with patient importance of exhausting conservativecare and risk of recurrence, surgical scar, chronic pain, and other complications with procedure. Educated patient underlying bony deformity which exacerbates condition. Following verbal consent and application of ethyl chloride spray sharply debrided painful chronic plantar warts x2 and covered with salicylic acid medicated pad. Instructed patient to keep clean dry and covered for up to 48 hours, then begin using pumice stone daily on moist skin and apply salicylic acid 40%. Discussed blister reaction may occur. Advised orthotics with metatarsal offloading pad. Strict avoidance of barefoot ambulation. Prevention reviewed. Discussed monitoring for any satellite lesions. Answered all questions. Patient verbalized understanding of all instructions. FOLLOW UP: 6 weeks or sooner if any concerns or changes arise Brook Michelle DPM Grinder Operator [employer], [facility] documented in this encounter Plan of Treatment Not on file documented as of this encounter Visit Diagnoses Diagnosis Plantar wart Pain in both feet Pain in limb Metatarsalgia of both feet Enthesopathy of ankle and tarsus, unspecified documented in this encounter Care Teams Marine Machinist Relationship Specialty Start Date End Date Cornelia Hernandez PA [address] [place] [id number] PCP - General Family Medicine 07/23/20 06/03/23 documented as of this encounter
--- OUTSIDE RECORDS SUMMARY | 2024-05-04 11:58 | XMS_ITS | Encounter Summary ---
Author Organization [facility] Address [address] [place] [address] Care Team Providers Care Cashier Office Name Role Phone None, Provider Primary Care Provider Unavailabl e Encounter Details Date Type Department Care Team (Late st Contact Info) Description 08/22/2020 Lab Requisition [facility] Pathology & Laboratory Medicine - [facility] [address] [place] [address] Outr Resulting Lab, Provider Social History Tobacco [...] ORDER STANDALONE - BROAD COVID TEST Today 08/22/2020 7:29 EST COVID-19 TESTING Routine 08/22/2020 7:29 EST documented in this encounter Results * DO NOT ORDER STANDALONE - BROAD COVID TEST (08/22/2020 7:29 EST) COVID-19 rt-PCR Result NEGATIVE Negative 08/24/2020 9:50 EST [facility] Comment: 2019-novel Coronavirus [...] in accordance with CLIA regulations, [employer] [place] [employer] (CAP) guidelines (Dec 07, 2019), and FDA guidance (Nov 18, 2019). This test is only for use under the Food and Drug Administration's Emergency Use Authorization. Swab ENTIRE NASOPHARYNX / Unknown 08/22/2020 7:29 EST 08/22/2020 22:22 EST Provider Outr Resulting Lab MICROBIOLOGY - GENERAL ORDERABLES [facility] [place] * COVID-19 TESTING (08/22/2020 7:29 EST) COVID-19 rt-PCR Result NEGATIVE Negative 08/24/2020 9:50 EST [facility] Comment: 2019-novel Coronavirus (2019-nCoV) not detected [...] in accordance with CLIA regulations, [employer] [place] [employer] (CAP) guidelines (Dec 07, 2019), and FDA guidance (Nov 18, 2019). This test is only for use under the Food and Drug Administration's Emergency Use Authorization. Performing Lab [facility] [place] 08/24/2020 9:50 EST [facility] Swab 08/22/2020 7:29 EST 08/22/2020 22:22 EST Provider Outr Resulting Lab MICROBIOLOGY - GENERAL ORDERABLES [facility] [address] [place] [address] [facility] [place] documented in this encounter Visit Diagnoses Not on filedocumented in this encounter Care Teams Cashier Office Relationship Specialty Start Date End Date None, Provider PCP - General 10/02/15 documented as of this encounter
--- OUTSIDE RECORDS SUMMARY | 2024-05-04 11:58 | XMS_ITS | Encounter Summary ---
Author Organization [facility] [place] [address] Care Team Providers Care Environmental Quality Analyst Name Role Phone Chacha Jensen MD Primary Care Provider Encounter Details Date Type Department Care Team (Late st Contact Info) Description 05/23/2015 3:00 PM EDT Office Visit Cardiology at [address] [place] [address] Thang Isidro MD [facility] [place] [address] Syncope, unspecified Discharge Disposition: Home Social History [...] EDT documented in this encounter Patient Instructions * Patient Instructions* Jonatan Price - 05/23/2015 3:59 PM EDT 1) No medication changes are prescribed. We would advise you to continue avoiding spironolactone, as you are doing. 2) Hydrate well. [employer] should be at least eight glasses of 8oz each. 3) Eat extra salt. Do not eat any low salt foods. Add salt to your regular foods, to taste. 4) Follow up sooner if you have recurrent passing out/lightheaded spells. documented in this encounter Progress Notes * Jonatan Price - 05/23/2015 10:13 PM EDT Images from the original note were not included. Cardiac Electrophysiology Outpatient Consultation Referring: Chacha Jensen MD [address] [place] [address] PCP: CHACHA JENSEN MD (General) History of [...] few seconds. No symptoms of racing heart rate. She then passed out, approximately for 1 minute. [...] get up and passing out again. She wasnoted to have shaking movements during this spell. She did not have tongue biting, or incontinence d uring this spell. It lasted a total of [...] well hydrated. Specifically, she drinks at least 8 glasses of water and additional fluids. She is not liberal with salt (she dislikes the taste). Shewas supposed to start taking spironolactone 50 mg twice a day for hirsutism and adrenal hyperandrogenism, but never started it, on the advice of her PCP. The patient also had an episode of syncope in 8th grade. She recalls few details of this. It happened during intense aerobic exercise during gym class (suicide running drills), and may have been due to dehydration. She does report prior workup. She has had EKGs. She apparently had a Holter monitor at [facility], normal per her report. She apparently had an EEG at [facility], normal per her report. She has not previously had an echocardiogram or stress test. She eats 4000 kcal per day. She is highly active, but participates in no organized exercises as an adult. She used to play basketball in high school. She can easily walk 2-3 flights of stairs withoutlimitation from symptoms (such as chest pain/dyspnea/lightheadedness). She [...] for the 05/23/15 encounter (Office Visit) with Thang Isidro MD Medication Sig Dispense Refill ??? [...] ENDOSCOPY performed by JOSE DANIEL MURO at [facility] ENDOSCOPY ??? Gastric fundoplication ??? Tubal ligation ??? Iliotibial band surgery ??? Appendectomy ??? Tonsillectomy and adenoidectomy Allergies: Allergies Allergen Reactions ??? Ibuprofen Other (See Comments) Nose bleeds ??? Lidocaine Itching ??? 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 She is also going to night classes for child psychology. She smokes one pack per day, for the last 5 years. She also uses E cigarettes. She drinks beer on rare occasions (up to [...] was diagnosed with CAD and received PCI with stenting, approximately age 62. Physical Exam: BP 112/71 [...] rhythm, 64 bpm. AV conduction normal normal (KY 132 ms, QRS 70 ms). No evidence of long QT or short QT interval, QTc 385 ms by Bazett formula. No Brugada pattern. Normal QRS axis. No signs of ischemia or infarction. No signs of chamber hypertrophy. No evidence of manifest conduction down an accessory pathway (AKA Pnuwi-Afritvrry-Eizka syndrome). Echocardiogram, performed today, imaging reviewed: 1. The left ventricular chamber size is normal. Left ventricular wall thickness is normal. There isnormal global left ventricular systolic function. The quantitative [...] No prior echo for comparison. Assessment/Plan: Lori Cruz is a 25 y.o. female who presents for evaluation of recurrent syncope. Past medical history includes exercise-induced asthma, adrenal hyperandrogenism, hirsutism, hiatal hernia. Most, but not all of her episodes, are consistent with neurocardiogenic syncope. There is no obvious trigger, other than positional changes. We will try to obtain results of her Holter and EEG, to avoid repeat testing. EKG today is normal. Cardiovascular examination today was normal, and an echocardiogram was performed to exclude occult structural heart disease, given her recurrent events. There is no racing heart rate or palpitations to suggest a tachyarrhythmia. Bradycardia arrhythmia is extremely unlikely in a young patient with a normal [...] the patient on hydration (minimum of 8 glasses of 8 ounces, per day). We counseled the [...] This is the lowest available dose for hirsutism,so they would recommend stopping the medication, and pursuing other treatments. If she has recurrent events with nonpharmacologic treatment, we would next recommend fludrocortisone. Other medications such as Midodrine remain possibilities. If she fails pharmacotherapy for neurocardiogenic syncope and has recurrent events, we would also consider an implantable loop recorder (ILR). An ILR has the ability to record heart [...] Price MD Cardiac Electrophysiology Fellow Physician Pager [phone] Daytime Addendum I have personally interviewed and examined the patient; reviewed the data, discussed with Dr Price Ms. Cruz presents with multiple, but infrequent episodes of pre and buddy syncope - that appear natasha potentially vagally mediated. She has a good [...] ILR would be helpful Plan as above THANG ISIDRO MD documented in this encounter Plan of Treatment Not on file documented as of this encounter Procedures Procedure Name Priority Date/Time Associated Diagnosis Comments EKG 12-LEAD Routine 05/23/2015 2:10 PM EDT Syncope, unspecified documented in this encounter Results * Echocardiogram Transthoracic(Leb) (05/23/2015 4:16 PM EDT) EF 63 [employer] SYSTEM Anatomical Region Laterality Modality Other 05/23/2015 Narrative 05/23/2015 4:36 PM EDT Procedure: ?Transthoracic Echocardiogram Patient: ?MAINOR LIBERTY N ? (Age): 1990(25y) Med Rec#: ? [id number] ?Sex: ?F ? Site Loc: ? [facility] ?Ht / Wt: ??175.3(cm)/68(kg Pt. Loc: ?Echo Lab ?BSA: ?1.83 Study Date: ?? 05/23/2015 ?Pt. Type: Outpatient Tape: ? Referring: Thang Isidro Reading: Jasson Pascal ([id number]) Graphic Artist: Ashlie Valdez Diagnosis: CPT Codes: *Echo Full (69765) *Spectral Doppler (51171) *Color Doppler (78784) Indication: ?? Syncope Rhythm: ? Sinus BP: [...] E-wave Vmax ?1.1 ?m/sec ? MV deceleration [id number] ?msec ? MV A-wave Vmax ?0.4 ?m/sec ? MV E:A ratio ?2.5 ?ratio ? LV E:e' septal ratio0.2 ?ratio ? Tricuspid Valve ?Value ?Units (Range) ? TR Vmax ? 2.1 ?m/sec ? TR peak gradient ?17.1 ? mmHg ? RAP ? 3 ?mmHg ? RVSP ?20 ? mmHg ? Pulmonic Valve/Qp:Qs ?Value ?Units (Range) ? [place] end-diastolic Vma0.7 ?m/sec ? PA end-diastolic pre5 ?mmHg ? Measurement Trending Name ? 05/23/2015 ? LV EDV BP ?96.6411 LVIDd (2D) ? 4.13119260 LV ESV BP ?36.1077 LVIDs (2D) ? 2.2979656 LA ESV BP (A/L) ?44.5252 Wall Motion: Segment Name ?Rest ? Base-Anteroseptal ?? Normal ? Base-Anterior ? Normal ? Base-Anterolateral ??Normal ? Base-Posterolateral Normal ? Base-Inferior ? Normal ? Base-Inferoseptal ?? Normal ? Mid-Anteroseptal ?Normal ? Mid-Anterior ?Normal ? Mid-Anterolateral ?? Normal ? Mid-Posterolateral ??Normal ? Mid-Inferior ?Normal ? Mid-Inferoseptal ?Normal ? [place]-Septal ? Normal ? [place]-Anterior ? Normal ? [place]-Lateral ?Normal ? [place]-Inferior ? Normal ? [place]-Tip ?Normal ? This report has been electronically signed by: Jasson Pascal MD ? 05/23/2015 16:35:52 Images reviewed and interpretation verified [facility] Cardiac Ultrasound Laboratory Procedure Note Jasson Pascal MD - 05/23/2015 Procedure: Transthoracic Echocardiogram Patient: MAINOR DUENAS(Age): 1990(25y) Med Rec#: [id number] Sex: F Site Loc: [facility] Ht / Wt: 175.3(cm)/68(kg Pt. Loc: Echo Lab BSA: 1.83 Study Date: 05/23/2015 Pt. Type: Outpatient Tape: Referring: Thang Isidro Reading: Jasson Pascal ([id number]) Graphic Artist: Ashlie Valdez Diagnosis: CPT Codes: *Echo Full (43545) *Spectral Doppler (46128) *Color Doppler (31945) Indication: Syncope Rhythm: Sinus BP: 112/71 SUMMARY: [...] MV E-wave Vmax 1.1 m/sec MV deceleration [id number] msec MV A-wave Vmax 0.4 m/sec MV E:A ratio 2.5 ratio LV E:e' septal ratio0.2 ratio Tricuspid Valve Value Units (Range) TR Vmax 2.1 m/sec TR peak gradient 17.1 mmHg RAP 3 mmHg RVSP 20 mmHg Pulmonic Valve/Qp:Qs Value Units (Range) [place] end-diastolic Vma0.7 m/sec PA end-diastolic pre5 mmHg Measurement Trending Name 05/23/2015 LV EDV BP 96.6411 LVIDd (2D) 4.06173669 LV ESV BP 36.1077 LVIDs (2D) 2.7665873 LA ESV BP (A/L) 44.5252 Wall Motion: Segment Name Rest Base-Anteroseptal Normal Base-Anterior Normal Base-Anterolateral Normal Base-Posterolateral Normal Base-Inferior Normal Base-Inferoseptal Normal Mid-Anteroseptal Normal Mid-Anterior Normal Mid-Anterolateral Normal Mid-Posterolateral Normal Mid-Inferior Normal Mid-Inferoseptal Normal [place]-Septal Normal [place]-Anterior Normal [place]-Lateral Normal [place]-Inferior Normal [place]-Tip Normal This report has been electronically signed by: Jasson Pascal MD 05/23/2015 16:35:52 Images reviewed and interpretation verified [facility] Cardiac Ultrasound Laboratory Thang Isidro MD ECHO ORDERABLES * EKG 12 Lead (05/23/2015 2:10 PM EDT) Ventricular rate 64 BPM MUSE SYSTEM Atrial Rate 64 BPM MUSE SYSTEM P-R Interval 132 ms MUSE SYSTEM QRS Duration 78 ms MUSE SYSTEM Q-T Interval 374 ms MUSE SYSTEM QTC Calculated (Bezet) 385 ms MUSE SYSTEM Calculated P [place] 41 degrees MUSE SYSTEM Calculated R [place] 64 degrees MUSE SYSTEM Calculated T [place] 43 degrees MUSE SYSTEM INTERPRETATION Normal sinus rhythm Normal ECG No previous ECGs available Confirmed by MD CARMONA ALAN ([id number]) on 05/23/2015 5:34:02 PM MUSE SYSTEM 05/23/2015 2:10 PM EDT 05/23/2015 5:34 PM EDT Thang Isidro MD ECG ORDERABLES MUSE SYSTEM documented in this encounter Visit Diagnoses Diagnosis Syncope, unspecified Syncope, unspecified documented in this encounter Care Teams Environmental Quality Analyst Relationship Specialty Start Date End Date Chacha Jensen MD [address] [place] [id number] PCP - General 12/03/14 07/22/20 documented as of this encounter
--- OUTSIDE RECORDS SUMMARY | 2024-05-04 11:58 | XMS_ITS | Encounter Summary ---
Author Organization [facility] [place] [address] Care Team Providers Care Pile Header Name Role Phone Sky Jensen MD Primary Care Provider [phone] Reason for Visit * Reason Comments Shoulder Pain Encounter Details Date Type Department Care Team (Late st Contact Info) Description 01/08/2016 9:13 AM EDT - 01/08/2016 11:49 AM EDT [place] [id number] Acute pain of right shoulder Discharge Disposition: Home Social History Tobacco Use [...] Sign Reading Time Taken Comments Blood Pressure 128/64 01/08/2016 11:00 AM EDT Pulse 69 01/08/2016 11:00 AM EDT Temperature 36.7 ??C (98.1 ??F) 01/08/2016 11:00 AM E DT Respiratory Rate 16 01/08/2016 11:00 AM EDT Oxygen Saturation 100% 01/08/2016 11:00 AM EDT Inhaled Oxygen Concentration - - Weight 77.1 kg (170 lb) 01/08/2016 9:15 AM EDT Height - - Body Mass Index 25.1 10/10/2015 11:19 AM EST documented in this encounter Discharge Instructions * Attachments The following attachments cannot be sent through Care Everywhere. * SHOULDER STRETCHES : EXERCISES (POLISH) documented in this encounter Medications at Time of Discharge Medication Sig Dispensed Refills Start Date End Date PROAIR HFA 90 mcg/actuation HFA Aerosol Inhaler as needed. 0 09/12/2014 07/29/2023 triamcinolone (KENALOG) 0.1 % Ointment 0 09/12/2014 07/29/2023 documented as of this encounter ED Notes * Lilia Mendoza, EARLY INTERVENTION SPECIALIST - 01/08/2016 1:34 PM EDT Images from the original note were not included. Chief Complaint Patient presents with ??? Shoulder Pain HPI 25 y.o. female presents to the ED today with continued right shoulder pain. She states that about 1.5 weeks ago she attempting to help a man up off the ground when she felt a pop in her right shoulder. She describes pain with ROM of her right shoulder. Denies any other injuries, numbness, tinging, chest pain or SOB. Otherwise feels well. Allergies Allergen Reactions ??? Ibuprofen Other (See Comments) Nose bleeds ??? Lidocaine Itching ??? Nsaids (Non-Steroidal Anti-Inflammatory Drug) Other (See Comments) Nosebleeds Review of Systems Constitutional: Negative for fever, chills and fatigue. Respiratory: Negative for cough, shortness of breath and wheezing. Cardiovascular: Negative for chest pain and palpitations. Gastrointestinal: Negative for nausea and vomiting. Musculoskeletal: Positive for arthralgias. Negative for back pain, joint swelling, neck pain and neck stiffness. Right shoulder pain Skin: Negative for color change, rash and wound. Neurological: Negative for weakness and numbness. Hematological: Negative for adenopathy. Does not bruise/bleed easily. Physical Exam Constitutional: She is oriented to person, place, and time. She appears well- developed and well-nourished. HENT: Head: Normocephalic and atraumatic. Neck: Normal range of motion. Neck supple. Cardiovascular: Normal rate, regular rhythm, normal heart sounds and intact distal pulses. Pulmonary/Chest: Effort normal and breath sounds normal. Abdominal: Soft. Bowel sounds are normal. Musculoskeletal: Right shoulder: She exhibits tenderness, bony tenderness and pain. She exhibits no swelling, no effusion, no crepitus, no deformity, no spasm, normal pulse and normal strength. Left shoulder: Normal. Right elbow: Normal. Left elbow: Normal. Right wrist: Normal. Left wrist: Normal. Arms: Neurological: She is alert and oriented to person, place, and time. No sensory changes to the right extremity Skin: Skin is warm and dry. Psychiatric: She has a normal mood and affect. Procedures Clavicle xray: No Fracture or AC separation MDM Shoulder pain: Physical exam and History most consistent with a shoulder strain. Pt does not have an Neurovascular deficits at this time. Discussed pain management and ROM exercises. Pt is agreeable to follow up with her PCP for referral to PT as needed. Return precautions discussed. ED Course: H & PE Imaging Lilia Mendoza APRN 01/08/16 1344 * Yamileth Okeefe RN - 01/08/2016 11:49 AM EDT Sling placed on patient's right arm. documented in this encounter Miscellaneous Notes * ED Triage - Pippa Bean RN - 01/08/2016 9:16 AM EDT Presents to ED, AAOx3, ambulatory w/o difficulty with c/o right, anterior shoulder pain and right-sided scapular pain after lifting a box ~1.5 weeks ago. States pain has not improved. Decreased ROM secondary to pain. (+) CMS intact. Denies numbness/tingling. Resp even-unlabored. Skin pink/warm/dry. documented in this encounter Plan of Treatment Not on file documented as of this encounter Procedures Procedure Name Priority Date/Time Associated Diagnosis Comments XR CHEST ONE VIEW STAT 01/08/2016 11: 09 AM EDT XR CLAVICLE RIGHT STAT 01/08/2016 10: 05 AM EDT documented in this encounter Results * XR Chest Pa or AP- 1 View (01/08/2016 11:09 AM EDT) Anatomical Region Laterality Modality Chest N/A Digital Radiogra phy Impressions 01/08/2016 11:31 AM EDT IMPRESSION: Normal PA radiograph of the chest. Narrative 01/08/2016 11:31 AM EDT EXAMINATION: XR CHEST PA OR AP 1 VIEW CLINICAL HISTORY: Shoulder pain TECHNIQUE: Single PA view of the chest. COMPARISON: Shoulder radiographs from the same day. FINDINGS: Lungs are clear. No pleural effusion. Normal size of the heart and width of the mediastinum. Osseous structures are unremarkable. Procedure Note Carole Davis MD - 01/08/2016 EXAMINATION: XR CHEST PA OR AP 1 VIEW CLINICAL HISTORY: Shoulder pain TECHNIQUE: Single PA view of the chest. COMPARISON: Shoulder radiographs from the same day. FINDINGS: Lungs are clear. No pleural effusion. Normal size of the heart and widthof the mediastinum. Osseous structures are unremarkable. IMPRESSION IMPRESSION: Normal PA radiograph of the chest. Wander Oakes MD IMG DX ORDERABLES * XR Clavicle Right (GENERIC) (01/08/2016 10:05 AM EDT) Anatomical Region Laterality Modality Shoulder, Chest Right Digital Radiogra phy Impressions 01/08/2016 10:28 AM EDT IMPRESSION: 1. ??No acute fracture or dislocation. 2. ??Ovoid 2cm superior right hemithorax opacity. This likely represents costochondral calcification at the anterior right second rib. Consider PA chest x-ray confirmation if indicated. I have personally reviewed the image(s) and the residents interpretation and agree with the findings, Ruth Annashia Baker at 01/08/2016 10:28 AM Narrative 01/08/2016 10:28 AM EDT EXAMINATION: XR CLAVICLE RIGHT CLINICAL HISTORY: Pain at the AC joint after lifting TECHNIQUE: AP and axial views of the right clavicle. COMPARISON: None FINDINGS: No acute fracture or dislocation. Acromioclavicular and coracoclavicular distances are normal. No evidence of degenerative changes in the glenohumeral or acromioclavicular joint. No focal osseous lesions. No appreciable soft tissue swelling. There is a 2 cm ovoid shaped opacity which superimposes over the superior right hemithorax in the location of the anterior second rib. This is seen in only one projection. Procedure Note Ruth Ann Baker MD - 01/08/2016 EXAMINATION: XR CLAVICLE RIGHT CLINICAL HISTORY: Pain at the AC joint after lifting TECHNIQUE: AP and axial views of the right clavicle. COMPARISON: None FINDINGS: No acute fracture or dislocation. Acromioclavicular and coracoclavicular distances are normal. No evidence of degenerative changes in theglenohumeral or acromioclavicular joint. No focal osseous lesions. No appreciable softtissue swelling. There is a 2 cm ovoid shaped opacity which superimposes over the superiorright hemithorax in the location of the anterior second rib. This is seen inonly one projection. IMPRESSION IMPRESSION: 1. No acute fracture or dislocation. 2. Ovoid 2cm superior right hemithorax opacity. This likely represents costochondral calcification at the anterior right second rib. Consider PAchest x-ray confirmation if indicated. I have personally reviewed the image(s) and the residents interpretationand agree with the findings, Ruth Ann Baker at 01/08/2016 10:28 AM Wander Oakes MD IMG DX ORDERABLES documented in this encounter Visit Diagnoses Diagnosis Acute pain of right shoulder documented in this encounter Care Teams Pile Header Relationship Specialty Start Date End Date Sky Jensen MD [address] [address] PCP - General 12/03/14 07/22/20 documented as of this encounter
--- OUTSIDE RECORDS SUMMARY | 2024-05-04 11:58 | XMS_ITS | Encounter Summary ---
Author Organization [facility] [place] [address] Care Team Providers Care Disc Sander Name Role Phone Sky Jensen MD Primary Care Provider Encounter Details Date Type Department Care Team (Late st Contact Info) Description 10/23/2015 Telephone Cardiology at [address] [phone] Jonatan Price MD [facility] [place] [address] Social History Tobacco Use Types Packs/Day Years [...] * Telephone Encounter - Jonatan Price - 10/23/2015 12:37 PM EST I called the patient, triggered by the phone call our office received yesterday. The patient had a typical syncopal episode (while standing and cooking, ringing in ears followed bylightheadedness and syncope) on 10/21/2015. She did have some head and back trauma from this. [facility], with no significant injuries, only a tweaked back. Shewas wearing the ziopatch at the time. Due to a misunderstanding, the patient had stopped fluorinef (she thought it interacted with the ziopatch), and so this event happened without medication. After the episode on 2/1, she started midodrine 2.5 mg tid, and It subsequently increased to 5 mg tid in the ED. I asked her to do the following: ?? Continue midodrine 5 mg tid ?? Restart fludrocortisone 0.1 mg daily ?? Continue with stress test ?? Phone check in ~2 weeks, to see how she is doing, and to review ziopatch results, which capturedher syncope episode I also spoke to her PCP, Dr. Jensen. He is in agreement with these recommendations. Jonatan Price MD Cardiac Electrophysiology Fellow Physician Pager [phone] Daytime documented in this encounter Plan of Treatment Not on file documented as of this encounter Visit Diagnoses Not on filedocumented in this encounter Care Teams Disc Sander Relationship Specialty Start Date End Date Sky Jensen MD [address] [place] [id number] PCP - General 12/03/14 07/22/20 documented as of this encounter
--- OUTSIDE RECORDS SUMMARY | 2024-05-04 11:58 | XMS_ITS | Encounter Summary ---
Author Organization [facility] [place] [address] Care Team Providers Care Hospital Admissions Officer Name Role Phone Sky Jensen MD Primary Care Provider [phone] Reason for Visit * Reason Comments Foot Problem calluses Encounter Details Date Type Department Care Team (Late st Contact Info) Description 07/22/2016 10:30 AM EDT Office [place] [address] Eneida Mast RN Callus Social History Tobacco Use Types Packs/Day Years [...] - documented in this encounter Patient Instructions * Patient Instructions* Eneida Mccall RN - 07/22/2016 10:30 AM [...] Hydrin documented in this encounter Progress Notes * Eneida Mccall RN - 07/22/2016 10:30 AM EDT [facility] [place] Initial Foot Clinic Note ?? Name: Lori William Age: 26 y.o.. MR#: [id number] ?? Date of Service: 07/22/2016 ?? Chief [...] medical, surgical, social and family histories were reviewedand updated as appropriate. ? Physical Exam: ?? Vitals: Vitals: 07/22/16 1049 BP: 107/61 Pulse: 64 Temp: 37 ??C (98.6 ??F) Gen: WD, alert, oriented. NAD. Derm: Nails are thickened, dystrophic, discolored and elongated. No interdigital macerations. No erythema or ecchymosis noted. HPK to bilateral sub 5th MTH and right medial 1st MPJ. Skin is warm, dryand supple. Vasc: DP/PT pulses palp. CFT < [...] pressure to the bony prominences. She will trythese and cream that contains urea and follow up PRN. All questions were answered, she verbalized understanding. ?? Procedure: Performed debridement of corn/callus x [...] callosities documented in this encounter Care Teams Hospital Admissions Officer Relationship Specialty Start Date End Date Sky Jensen MD [address] [place] [id number] PCP - General 12/03/14 07/22/20 documented as of this encounter
--- OUTSIDE RECORDS SUMMARY | 2024-05-04 11:58 | XMS_ITS | Encounter Summary ---
Author Organization [facility] Address [address] [place] [address] Care Team Providers Care Crane Rigger Name Role Phone Dony Vu APRN Primary Care Provider Encounter Details Date Type Department Care Team (Latest Contact Info) Description 11/09/2014 15:02 EST - 11/09/2014 23:59 EST Hospital Encounter [address] [address] Unknown, Provider, Discharge Disposition: Home or Self Care Social History Tobacco Use Types Packs/Day Years Used Date Smoking Tobacco: Never Assessed Sex and Gender Information Value Date Recorded Sex Assigned at Not on file Gender Identity Not on file Sexual Orientation Not on file documented as of this encounter Discharge Disposition Disposition Code Departure Means Destination Home or Self Chcf documented in this encounter Plan of Treatment Not on file documented as of this encounter Visit Diagnoses Not on filedocumented in this encounter Care Teams Crane Rigger Relationship Specialty Start Date End Date Dony Vu APRN [facility] [address] [place] [address] PCP - General 04/26/12 11/11/14 documented as of this encounter
--- OUTSIDE RECORDS SUMMARY | 2024-05-04 11:58 | XMS_ITS | Encounter Summary ---
Author Organization [facility] Address [address] [place] [address] Care Team Providers Care Puff Iron Operator Name Role Phone Dony Vu SHAVON Primary Care Provider Encounter Details Date Type Department Care Team (Late st Contact Info) Description 11/09/2014 Results Only [facility] [phone] Osman Brown, DO [address] [place] [phone] Social History Tobacco Use Types Packs/Day Years Used Date Smoking Tobacco: Never Assessed Sex and Gender Information Value Date Recorded Sex Assigned at Not on file Gender Identity Not on file Sexual Orientation Not on file documented as of this encounter Plan of Treatment Not on file documented as of this encounter Procedures Procedure Name Priority Date/Time Associated Diagnosis Comments SURGICAL PATHOLOGY Routine 11/09/2014 17 :33 EST documented in this encounter Results * SURGICAL PATHOLOGY (11/09/2014 17:33 EST) Pathology Report: SURGICAL PATHOLOGY REPORT Reports generated via electronic interface contain original data; however they are lacking the format of the original report. Caution should be taken when reading/interpret ing unformatted reports. Name: ? LESLEY HAYWARD ? Accession #: ? [id number] ? : ? 1990 (Age: 24) ??F ? Collect Date: ? 11/09/2014 ? Location: ? [facility] ? Receive Date: ? 11/09/2014 ? Provider: OSMAN BROWN DO Copy to: CHACHA SWAIN MD ? [...] identification (initials O, L) and gastric antrum are three pink-klein tissues (0.3 x 0.2 x 0.2 cm, 0.3 x 0.2 x 0.2 cm, and 0.4 x 0.3 x 0.2 cm). Entirely submitted in 1. Dr. Duran 11/10/2014 09:43 AM End of Report [facility] 11/09/2014 17:3 3 EST 11/09/2014 17:33 EST Osman Brown DO PATHOLOGY ORDERABLES [facility] [address] [place] [address] documented in this encounter Visit Diagnoses Not on filedocumented in this encounter Care Teams Puff Iron Operator Relationship Specialty Start Date End Date Dony Vu APRN 8 [facility] [address] [place] [address] PCP - General 04/26/12 11/11/14 documented as of this encounter
--- OUTSIDE RECORDS SUMMARY | 2024-05-04 11:58 | XMS_ITS | Encounter Summary ---
Author Organization [facility] Address [address] [place] [address] Care Team Providers Care Site Head Name Role Phone Md RAVI Palafox Primary Care Provider Steve isaac Encounter Details Date Type Department Care Team (Late st Contact Info) Description 05/30/2010 Results Only [facility] Services - [facility] [address] [place], [place] [address] Kim Parnell, [facility] [address] [place] [address] [place] [address] Social History Tobacco Use Types Packs/Day Years Used Date Smoking Tobacco: Never Assessed Sex and Gender Information Value Date Recorded Sex Assigned at Not on file Gender Identity Not on file Sexual Orientation Not on file documented as of this encounter Plan of Treatment Not on file documented as of this encounter Procedures Procedure Name Priority Date/Time Associated Diagnosis Comments CYTOPATHOLOGY Routine 05/30/2010 0:00 EDT documented in this encounter Results * CYTOPATHOLOGY (05/30/2010 0:00 EDT) Pathology Report: CYTOPATHOLOGY REPORT ? Reports generated via electronic interface contain original data; ? however they are lacking the format of the original report. ? Caution should be taken when reading/interpreti ng unformatted reports. ? Name: ? LESLEY HAYWARD ? Accession #: ? [id number] ? : ? 1990 (Age: 20) ??F ?Collect Date: ? 05/30/2010 ? Location: ? [facility] ? Receive Date: ? 06/02/2010 ? Provider: ?KIM RADHA REGISTERED NURSE MATERNITY ? Copy to: ? Specimen/Source: ?Pap Test, Cervix/Endocervix, ThinPrep Imaging System ? with manual evaluation ? Last Menstrual Period: ? Hormonal/Contracep tive Status: ? Depo-Provera ? SPECIMEN ADEQUACY ? Satisfactory for Evaluation ? - transformation zone component present ? - scant squamous epithelial component ? GENERAL CATEGORIZATION ? Negative for Intraepithelial Lesion or Malignancy ? INTERPRETATION ? Shift in justin present suggestive of bacterial vaginosis. ? Document reviewed and electronically signed by: ? Sky Stumler, CT(ASCP) ? Report Date: ??06/05/2010 09:49 ? End of Report ? [facility] 05/30/2010 06/02/2010 Kim Parnell REGISTERED NURSE MATERNITY PATHOLOGY ORDERABLES [facility] [address] [place] [address] documented in this encounter Visit Diagnoses Not on filedocumented in this encounter Care Teams Site Head Relationship Specialty Start Date End Date Md Palafox MD PCP - General 06/02/10 04/25/12 documented as of this encounter
--- OUTSIDE RECORDS SUMMARY | 2024-05-04 11:58 | XMS_ITS | Encounter Summary ---
Author Organization [facility] Address [address] [place] [address] Care Team Providers Care College Dean Name Role Phone Dony Vu SHAVON Primary Care Provider Encounter Details Date Type Department Care Team (Late st Contact Info) Description 11/22/2013 Results Only [facility] Laboratory Services - [facility] ([facility] [address] [place] [address] Neftali Desai MD [address] [place] [address] Social History Tobacco Use Types Packs/Day Years Used Date Smoking Tobacco: Never Assessed Sex and Gender Information Value Date Recorded Sex Assigned at Not on file Gender Identity Not on file Sexual Orientation Not on file documented as of this encounter Plan of Treatment Not on file documented as of this encounter Procedures Procedure Name Priority Date/Time Associated Diagnosis Comments PAP TEST- RESULT ONLY Routine 11/22/2013 0:00 EST documented in this encounter Results * PAP TEST- RESULT ONLY (11/22/2013 0:00 EST) Pathology Report: CYTOPATHOLOGY REPORT Reports generated via electronic interface contain original data; however they are lacking the format of the original report. Caution should be taken when reading/interpreti ng unformatted reports. Name: ? LESLEY HAYWARD ? Accession #: ? [id number] : ? 1990 (Age: 23) ??F ?Collect Date: ? 11/22/2013 Location: ? [facility] ? Receive Date: ? 11/23/2013 Provider: ?NEFTALI DESAI MD Copy to: ? Specimen/Source: ?Pap Test, Cervix/Endocervix, ThinPrep Imaging System with manual evaluation Last Menstrual Period: ? Hormonal/Contracep tive Status: ? Yes: NuvaRing ? SPECIMEN ADEQUACY ? Satisfactory for Evaluation - transformation zone component present GENERAL CATEGORIZATION ? Negative for Intraepithelial Lesion or Malignancy INTERPRETATION ? Shift in justin present suggestive of bacterial vaginosis. ? Document reviewed and electronically signed by: ? ARTURO Beverly(ASCP) ? Report Date: ??11/29/2013 15:20 End of Report [facility] 11/22/2013 11/23/2013 Neftali Desai MD PATHOLOGY ORDERABLES Performing Organization Address City/State/[facility] Co de Phone Number [facility] [address] [place] [address] documented in this encounter Visit Diagnoses Not on filedocumented in this encounter Care Teams College Dean Relationship Specialty Start Date End Date Dony Vu APRN [address] [place] [address] PCP - General 04/26/12 11/11/14 documented as of this encounter
--- OUTSIDE RECORDS SUMMARY | 2024-05-04 11:58 | XMS_ITS | Encounter Summary ---
Author Organization [facility] [place] [address] Care Team Providers Care Bessemer Converter Blower Name Role Phone Sky Jensen MD Primary Care Provider [phone] Encounter Details Date Type Department Care Team (Latest Contact Info) Description 07/29/2023 Travel Social History Tobacco Use Types Packs/Day Years [...] on filedocumented in this encounter Care Teams Bessemer Converter Blower Relationship Specialty Start Date End Date Sky Jensen MD [address] [place] [address] PCP - General General Internal Medicine 06/04/23 documented as of this encounter
--- OUTSIDE RECORDS SUMMARY | 2024-05-04 11:58 | XMS_ITS | Encounter Summary ---
Author Organization [place] [address] Care Team Providers Care Foaming Machine Operator Name Role Phone Sky Jensen MD Primary Care Provider Reason for Referral * Consultation (Routine) - Authorized Specialty Diagnoses / Procedures Referred By Rashmi salomon Referred To Contact Gastroenterology Diagnoses Other gastritis without bleeding Other specified postprocedural states Acquired absence of other specified parts of digestive tract Acquired absence of both cervix and uterus Sandie Panda DO [address] [place] [address] [address] [place] [address] [facility] [address] [place] [phone] Referral ID Status Reason Start Date Expiration Date Visits Requested Visits Authorized [id number] Authorized Consult, Test & Treat PCP Updated and/or Approved 06/04/2023 06/03/2024 6 6 Encounter Details Date Type Department Care Team (Late st Contact Info) Description 06/04/2023 Transcribe Orders eDH Incoming Referrals [phone] Sandie Panda DO [address] [place] [address] [address] [place], [place] [id number] RUQ abdominal pain; Biliary dyskinesia; Acute epigastric pain; Gastroesophageal reflux disease, unspecified whether esophagitis present; Nausea, vomiting and diarrhea Social History Tobacco Use Types Packs/Day Years [...] as of this encounter Plan of Treatment Scheduled Referrals Name Type Priority Associated Diagnoses Order Schedule Referral to Gastroenterology Outpatient Referral Routine RUQ abdominal pain Biliary dyskinesia Acute epigastric pain Gastroesophageal reflux disease, unspecified whether esophagitis present Nausea, vomiting and diarrhea Ordered: 06/04/2023 documented as of this encounter Visit Diagnoses Diagnosis RUQ abdominal pain Abdominal pain, right upper quadrant Biliary dyskinesia Other specified disorder of gallbladder Acute epigastric pain Abdominal pain, epigastric Gastroesophageal reflux disease, unspecified whether esophagitis present Nausea, vomiting and diarrhea Nausea with vomiting documented in this encounter Care Teams Foaming Machine Operator Relationship Specialty Start Date End Date Sky Jensen MD [address] [place] [address] PCP - General General Internal Medicine 06/04/23 documented as of this encounter
--- OUTSIDE RECORDS SUMMARY | 2024-05-04 11:58 | XMS_ITS | Encounter Summary ---
Author Organization [facility] Address [address] [place] [address] Care Team Providers Care Complaint Operator Name Role Phone Sky Jensen MD Primary Care Provider [phone] Encounter Details Date Type Department Care Team (Late st Contact Info) Description 09/27/2015 Results Only [facility] [phone] Neftali Desai MD [address] [place] [address] Social History Tobacco Use Types Packs/Day Years Used Date Smoking Tobacco: Never Assessed Sex and Gender Information Value Date Recorded Sex Assigned at Not on file Gender Identity Not on file Sexual Orientation Not on file documented as of this encounter Plan of Treatment Not on file documented as of this encounter Procedures Procedure Name Priority Date/Time Associated Diagnosis Comments SURGICAL PATHOLOGY Routine 09/27/2015 21 :43 EST documented in this encounter Results * SURGICAL PATHOLOGY (09/27/2015 21:43 EST) Pathology Report: SURGICAL PATHOLOGY REPORT Reports generated via electronic interface contain original data; however they are lacking the format of the original report. Caution should be taken when reading/interpret ing unformatted reports. Name: ? LESLEY HAYWARD ? Accession #: ? [id number] ? : ? 1990 (Age: 25) ??F ? Collect Date: ? 09/27/2015 ? [...] patient identification (initials O, L) and bilateral fallopian tubes are two unoriented tubular structures (5.8 cm in length and 0.8 cm in diameter, and 5.0 cm in length and 1.0 cm in diameter). ??The serosal surfaces are purple and smooth. Filshie clips are present on the distal end of each fallopian tube. Sectioning reveals a central pinpoint lumen with multiple smooth lined cysts (ranging in size from 0.1 cm to 0.7 cm in maximum dimension) filled with clear fluid. One fallopian tube is black inked for orientation purposes. Two leasing representative cross sections and one longitudinally bisected fimbriated end of each fallopian tube are submitted in [address] Amador 10/01/2015 4:37 PM End of Report [facility] 09/27/2015 21:4 3 EST 09/30/2015 21:43 EST Neftali Desai MD PATHOLOGY ORDERABLES Performing Organization Address City/State/[facility] Co de Phone Number [facility] [address] [place] [address] documented in this encounter Visit Diagnoses Not on filedocumented in this encounter Care Teams Complaint Operator Relationship Specialty Start Date End Date Sky Jensen MD [address] [place] [address] PCP - General 11/12/14 10/01/15 documented as of this encounter
--- OUTSIDE RECORDS SUMMARY | 2024-05-04 11:58 | XMS_ITS | Encounter Summary ---
[place] [address] Care Team Providers Care Infectious Diseases Physician Name Role Phone Dony Vu DESILVERIZER Primary Care Provide r Encounter Details Date Type Department Care Team (Latest Contact Info) Description 09/29/2012 9:00 AM EST Procedure [place] [address] CLINIC, Celeste Finley RN GERD (gastroesophageal reflux disease) (Primary Dx) Discharge Disposition: Home Social History [...] as of this encounter Progress Notes * Alfonso Rodarte MD - 10/07/2012 3:41 PM EST ESOPHAGEAL MANOMETRY Lori Cruz Female, 22 yrs, 1990 PCP: DONY VU STUDY DATE: 09/29/12 PROVIDER: Alfonso Rodarte[place] ([id number]) INDICATION JENNA; preoperative evaluation. METHODS Stationary esophageal manometry was performed with the Graduway esophageal motility system utilizing the Snipi software with a 4-channel solid-state motility probe. [...] above the lower esophageal sphincter zone. The upper esophageal sphincter zone is discerned by station [...] of the esophagus. Alfonso Rodarte, PhD, MD automotive service advisor, [facility] [employer] Section of Gastroenterology and Hepatology [facility] [place] [address] [address] V: [phone] F: [phone] BEL/jose CC/EC: DO Jh Hu MD * Celeste Fisher RN - 09/29/2012 9:11 AM [...] encounter Visit Diagnoses Diagnosis GERD (gastroesophageal reflux disease)- Primary Esophageal reflux documented in this encounter Care Teams Infectious Diseases Physician Relationship Specialty Start Date End Date Dony Vu APRN [address] [place] [address] PCP - General 09/29/12 12/02/14 documented as of this encounter
--- OUTSIDE RECORDS SUMMARY | 2024-05-04 11:58 | XMS_ITS | Encounter Summary ---
Author Organization [facility] [place] [address] Care Team Providers Care Assignment Clerk Name Role Phone Cornelia Hernandez Primary Care Provider Encounter Details Date Type Department Care Team (Late st Contact Info) Description 01/23/2021 Orders Only [place] [address] Brook Michelle DPM [facility] [place] [address] Social History Tobacco Use Types Packs/Day Years [...] on filedocumented in this encounter Care Teams Assignment Clerk Relationship Specialty Start Date End Date Cornelia Hernandez PA [address] [place] [address] PCP - General Family Medicine 07/23/20 06/03/23 documented as of this encounter
--- OUTSIDE RECORDS SUMMARY | 2024-05-04 11:58 | XMS_ITS | Encounter Summary ---
Author [facility] [place] [address] Care Team Providers Care Car Mechanic Helper Name Role Phone Sky Jensen MD Primary Care Provider Encounter Details Date Type Department Care Team (Late st Contact Info) Description 01/22/2015 Telephone [place] [id number] Viviana Cooper, RN Social History Tobacco Use Types Packs/Day Years [...] encounter Miscellaneous Notes * Telephone Encounter - Viviana Cooper RN - 01/23/2015 2:11 PM EDT Message I spoke with Dr. Jensen's nurse, who told me that the patient was concerned about lowering her BP and that Dr. Jensen agreed that it could be an issue but that he didn't appear to have actually told her not to take it. Can you let her know that hypotension would be unlikely to occur? If she is concerned about it, we can start with an OCP. ThanksMaldonado Placed call to Lori, no answer left message to call back. * Telephone Encounter - Viviana Cooper RN - 01/22/2015 1:52 PM EDT Received call back from Lori, message from Dr Elizondo given. Lori states she would preferif Dr Elizondo was able to speak with her PCP. States she is unsure what to do. Will forward to Dr Elizondo * Telephone Encounter - Viviana Cooper RN - 01/22/2015 1:15 PM EDT Message She has two options here. I think spironolactone is unlikely to cause hypotension for her. However,if she would like to follow her PCP's advise, she does not need to do this. Instead, we could startan OCP, which should also help. Can you see which option she would prefer? Her 17-OH P level was normal. ThanksMaldonado Placed call to [place] to let her know, no answer left message to call back. * Telephone Encounter - Viviana Cooper RN - 01/22/2015 8:37 AM EDT Message Viviana, I got her 17-OP results but not the potassium. Can you see if that got done? ThanksMaldonado Placed call to [facility], spoke with Lizet in lab who states that potassium was not done. Placed call to [place] who states that she did not have [...] on filedocumented in this encounter Care Teams Car Mechanic Helper Relationship Specialty Start Date End Date Sky Jensen MD [address] [place] [address] PCP - General 12/03/14 07/22/20 documented as of this encounter
--- OUTSIDE RECORDS SUMMARY | 2024-05-04 11:58 | XMS_ITS | Encounter Summary ---
Author Organization [facility] [place] [address] Care Team Providers Care Machine Marker Name Role Phone Sky Jensen MD Primary Care Provider [phone] Reason for Visit * Auth/Cert Specialty Diagnoses / Procedures Referred By Rashmi salomon Referred To Contact Procedures observation Referral ID Status Reason Start Date Expiration Date Visits Re quested Visits Authorized [id number] 1 1 Encounter Details Date Type Department Care Team (Latest Contact Info) Description 10/10/2015 7:14 AM EST - 10/10/2015 12:14 PM [facility] Hospital Encounter Non-[place] [address] Thang Isidro MD [facility] [place] [address] Syncope, unspecified syncope type Discharge Disposition: Home Social History Tobacco Use [...] times daily. 90 tablet 0 10/10/2015 11/04/2015 PROAIR HFA 90 mcg/actuation HFA Aerosol Inhaler as needed. 0 09/12/2014 07/29/2023 triamcinolone (KENALOG) 0.1 % Ointment 0 09/12/2014 07/29/2023 documented as of this encounter Plan of Treatment Pending Results Name Type Priority Associated Diagnoses Date /Time EP Tilt Table Test Cardiac Services Routine Syncope, unspecified syncope type 10/10/2015 9:19 AM EST documented as of this encounter Procedures Procedure Name Priority Date/Time Associated Diagnosis Comments TILT TABLE TEST Routine 10/10/2015 9:19 AM EST Syncope, unspecified syncope type Procedure Note - Jonatan Price MD - 10/10/2015 9:19 AM ESTThis note is in progress. Head-Up Tilt Test Indication: Syncope Operators: Jonatan Price MD; Navneet Garcia MD. Procedure: The patient was brought to the Electrophysiology Lab in thefasting state and continuous electrocardiographic monitoring wasinstituted. An intravenous line was placed for fluid and medicationadministration. The planned protocol is noted below. ? ? Stage I: Eighty degree head up tilt was initiated and maintained for 10minutes. ? ? Stage II: While maintaining 80 degree head up tilt, dobutamine infusionwas initiated at 2.5 mcg/kg/min and continued for 10 minutes. ? ? Stage III: While maintaining 80 degree head upright tilt, thedobutamine infusion was increased to 5 mcg/kg/min and continued for 10minutes. ? ? Stage IV: While maintaining 80 degree head upright tilt, the dobutamineinfusion was increased to 10 mcg/kg/min and continued for 10 minutes. At the completion of the tilt protocol or with syncope, the table wasreturned to the supine position and the heart rate and blood pressurereturned to baseline. The IV was discontinued and the patient wasdischarged in good condition. RESULTS: Baseline: HR: 62 [...] 92 Stage II 2 minutes Dobutamine 2.5 mcg/kg/min 123/88 92 4 minutes Dobutamine 2.5 mcg/kg/min 125/70 85 6 minutes Dobutamine 2.5 mcg/kg/min 131/75 108 8 minutes Dobutamine 2.5 mcg/kg/min 134/88 115 10 minutes Dobutamine 2.5 mcg/kg/min 130/54 103 Stage III 2 minutes Dobutamine 5 mcg/kg/min 126/74 99 4 minutes Dobutamine 5 mcg/kg/min 116/68 97 6 minutes Dobutamine 5 mcg/kg/min 129/75 124 8 minutes Dobutamine 5 mcg/kg/min 129/98 134 10 minutes Dobutamine 5 mcg/kg/min 127/78 133 Stage IV 2 minutes Dobutamine 10 mcg/kg/min 129/72 137 4 minutes Dobutamine 10 mcg/kg/min 121/102 147 6 minutes Dobutamine 10 mcg/kg/min 116/66 141 8 minutes Dobutamine 10 mcg/kg/min 117/83 146 9 minutes, 10 seconds Dobutamine 10 mcg/kg/min 78/46 66 Sudden drop in HRover 30 seconds, followed by hypotension. Symptoms of nausea, thenflushing and chest thudding, then vomitting and tinnitus. Nolightheadedness or syncope. Not typical for her syncope episodes (with theexception of tinnitus) Supine 90/36 76 Continued vomitting Discharge Observation: BP: 127/88 HR: 86 Rhythm: Sinus IMPRESSION: ? ? Vasodepressor response to tilt table provocation ? ? No syncope induced during test, but typical pro-dromal symptomstriggered with drop in BP. On the basis of the above, the patient was advised re: standardorthostatic precautions, positional awareness, adequate hydration,adequate salt in diet, physical counterpressure maneuvers. This report was composed by Dr. Price. documented in this encounter Visit Diagnoses Diagnosis Syncope, unspecified syncope type documented in this encounter Administered Medications Inactive Administered Medications - up to 3 most recent administrations Medication Order MAR Action Action Date Dose Rate Site DOBUTamine 2,000 mcg/mL (standard ADULT & Jessica greater than 20kg) 5-50 mcg/kg/min ? 72 kg (10.8-108 mL/hr), Intravenous, CONTINUOUS, Starting on Enriqueta 10/10/15 at 0800, Until Enriqueta 10/10/15 at 0918, For use in the electrophysiology lab (EP lab) only with direct provider supervision and verbal order., EP (Intra-Procedure) Rate/Dose Change 10/10/2015 9:00 AM EST 10 mcg/kg/min 21.6 mL/hr Rate/Dose Change 10/10/2015 8:49 AM EST 5 mcg/kg/min 10.8 mL/hr New Bag 10/10/2015 8:39 AM EST 2.5 mcg/kg/min 5.4 mL/hr documented in this encounter Care Teams Machine Marker Relationship Specialty Start Date End Date Sky Jensen MD [address] [place] [address] PCP - General 12/03/14 07/22/20 documented as of this encounter
--- OUTSIDE RECORDS SUMMARY | 2024-05-04 11:58 | XMS_ITS | Encounter Summary ---
Author Organization [facility] [place] [address] Care Team Providers Care Stamp Analyst Name Role Phone Sky Jensen MD Primary Care Provider Encounter Details Date Type Department Care Team (Late st Contact Info) Description 08/22/2015 Orders Only Cardiology at [address] [address] Jonatan Price MD [facility] [place] [address] Syncope, unspecified syncope type Social History Tobacco Use Types Packs/Day Years [...] AM EST documented as of this encounter Visit Diagnoses Diagnosis Syncope, unspecified syncope type documented in this encounter Care Teams Stamp Analyst Relationship Specialty Start Date End Date Sky Jensen MD [address] [place] [address] PCP - General 12/03/14 07/22/20 documented as of this encounter
--- OUTSIDE RECORDS SUMMARY | 2024-05-04 11:58 | XMS_ITS | Encounter Summary ---
Author Organization [facility] Address [address] [place] [address] Care Team Providers Care Program Project Analyst Name Role Phone None, Provider Primary Care Provider Unavailabl e Encounter Details Date Type Department Care Team (Late st Contact Info) Description 08/07/2020 Results Only [facility] Lab - Main [address] [address] Unknown, Provider, Social History Tobacco Use Types [...] Procedure Name Priority Date/Time Associated Diagnosis Comments [facility] Routine 08/07/2020 13:30 EST documented in this encounter Results * COVID-19 (08/07/2020 13:30 EST) [address] Not Detected 08/09/2020 11:10 EST [facility] Comment: TESTING PERFORMED AT [place]; Analyte ? Result 2019-nCoV ? Not detected Negative results do not preclude 2019-nCoV infection and should not be used as the sole basis for treatment or other patient management decisions. ??Negative results must be combined with clinical observations, patient history and epidemlogical information. 08/07/2020 13:3 0 EST 08/07/2020 16:20 EST Provider Unknown MICROBIOLOGY - GENER AL ORDERABLES Performing Organization Address City/State/[facility] Co de Phone Number [facility] [address] [place] [id number] documented in this encounter Visit Diagnoses Not on filedocumented in this encounter Care Teams Program Project Analyst Relationship Specialty Start Date End Date None, Provider PCP - General 10/02/15 documented as of this encounter
--- OUTSIDE RECORDS SUMMARY | 2024-05-04 11:58 | XMS_ITS | Clinical Summary ---
Author Organization [facility] Address [facility] [place] [address] Care Team Providers Care Animal Shelter Manager Name Role Phone Sky Jensen MD Primary Care Provider Allergies Active Allergy Reactions Criticality Noted Date Comments Banana 07/29/2023 Fruit Extracts Anaphylaxis High 07/22/2016 Chest tightness, blotchiness, and then stops breathing Per patient ( kiwi fruit) cant touch them or eat them Ibuprofen Other (See Comments) 08/01/2012 Nose bleeds Latex, Natural Rubber 07/29/2023 Lidocaine Itching 08/01/2012 Nsaids (Non-Steroidal Anti-Inflammatory Drug) Other (See Comments) 02/16/2014 Nosebleeds Medications Medication Sig Dispensed Refills Start Date End Date Status pantoprazole EC (Protonix) [address] tablet Take 40 mg by mouth 2 times daily. 05/10/2023 Active Active Problems Problem Noted Date Diagnosed Date Callus 07/22/2016 Neurocardiogenic syncope 05/23/2015 Overview (11/04/2015): ?? Echocardiogram 05/23/2015: Structurally normal heart ?? Head-up Tilt test 10/10/2015: typical Bezold-Jarisch reflex to tilt + dobutamine (HR dropped to 60s, SBP droppex to 70s). Atypical presyncope symptoms. ?? Ziopatch 10/10/2015: had a typical syncope episode. No arrhythmias during syncope, HR 80s-110s during syncope. No significant arrhythmias noted during study. ?? Exercise stress test, 11/01/2015: Diagnostic test, achieved stage 5 on Ayden protocol, 15 METs, no arrhythmias or signs of ischemia, no symptoms Hyperandrogenism 12/18/2014 Pelvic pain syndrome 02/16/2014 Immunizations Name Administration Dates Next Due Tdap 09/29/2012 Family History Medical History Relation Comments [...] on file Sexual Orientation Not on file Last Filed Vital Signs Vital Sign Reading Time Taken Comments Blood Pressure 119/64 07/29/2023 3:16 PM EST Pulse 71 07/29/2023 3:16 PM EST Temperature 37 ??C (98.6 ??F) 07/22/2016 10:49 AM EDT Respiratory Rate 16 01/08/2016 11:00 AM EDT Oxygen Saturation 100% 07/22/2016 10:49 AM EDT Inhaled Oxygen Concentration - - Weight 92.8 kg (204 lb 8 oz) 07/29/2023 3:16 PM EST Height 180.3 cm (5' 11) 07/29/2023 3:16 PM EST Body Mass Index 28.52 07/29/2023 3:16 PM EST Plan of Treatment Health Maintenance Due Date Last Done Comments Pneumococcal Vaccine: At-Risk 5-64yrs (1 of 2 - PCV) 0 1998 HIV screen 2010 Hepatitis C Screening 2010 Hepatitis B vaccine (0-59 yrs) (1) 2011 HPV test 2022 PAP Smear 2022 Tetanus vaccine 09/29/2022 09/29/2012 Covid-19 Vaccine (1 - 2022- season) 2023 Influenza (Flu) vaccine (1 o f 1 - Influenza standard series) 05/21/2024 Tdap adult Completed 09/29/2012 Care Teams Animal Shelter Manager Relationship Specialty Start Date End Date Sky Jensen MD [address] [place] [address] PCP - General General Internal Medicine 06/04/23
--- OUTSIDE RECORDS SUMMARY | 2024-05-04 11:58 | XMS_ITS | Encounter Summary ---
Author Organization [facility] Address [address] [place] [address] Care Team Providers Care Gifted Program Teacher Name Role Phone Md RAVI Palafox Primary Care Provider Steve isaac Encounter Details Date Type Department Care Team (Late st Contact Info) Description 08/28/2011 Results Only [facility] Laboratory Services - [facility] ([facility]) [address], [place] [address] Neftali Desai MD [address] [place] [address] Social History Tobacco Use Types Packs/Day Years Used Date Smoking Tobacco: Never Assessed Sex and Gender Information Value Date Recorded Sex Assigned at Not on file Gender Identity Not on file Sexual Orientation Not on file documented as of this encounter Plan of Treatment Not on file documented as of this encounter Procedures Procedure Name Priority Date/Time Associated Diagnosis Comments SURGICAL PATHOLOGY Routine 08/28/2011 0:00 EST documented in this encounter Results * SURGICAL PATHOLOGY (08/28/2011 0:00 EST) Pathology Report: SURGICAL PATHOLOGY REPORT Reports generated via electronic interface contain original data; however they are lacking the format of the original report. Caution should be taken when reading/interpreti ng unformatted reports. Name: ? LESLEY HAYWARD ? Accession #: ? [id number] ? : ? 1990 (Age: 21) ??F ? Collect Date: ? 08/28/2011 ? Location: ? [facility] ? Receive Date: ? 08/28/2011 ? Provider: NEFTALI DESAI MD Copy to: ? Final Pathologic Diagnosis: ? Uterine contents, removal: ? 1. ??Immature chorionic villi, decidua and gestational-type endometrium, consistent with [...] Gross Description: ? Received in formalin labelled O'CarlozLesley marx and -related tissue is a 5.0 x 4.0 x 3.5 cm aggregate of klein-brown soft tissue fragments. No parts are identified. ??The tissue is predominantly brown-klein with some areas which are light klein and spongy. ??Wood Grinder sections are submitted as (A1) through (A3). ??(Dr. Birch)/[facility] End of Report MANUEL CHAO 08/28/2011 08/28/2011 15: 50 EST Neftali Desai MD PATHOLOGY ORDERABLES MANUEL CHAO [address] [place] [address] documented in this encounter Visit Diagnoses Not on filedocumented in this encounter Care Teams Gifted Program Teacher Relationship Specialty Start Date End Date Md Palafox MD PCP - General 06/02/10 04/25/12 documented as of this encounter
--- OUTSIDE RECORDS SUMMARY | 2024-05-04 11:58 | XMS_ITS | Encounter Summary ---
[place] [address] Care Team Providers Care Supervisor Press Room Name Role Phone Dony Vu Genny SANDS Primary Care Provide r Reason for Visit * Reason Onset Date Comments Other 09/21/2012 PRE-MOTILITY NOT E Encounter Details Date Type Department Care Team (Late st Contact Info) Description 09/21/2012 [place] [phone] Ana Jamison Other (PRE-MOTILITY NOTE) Social History Tobacco Use Types Packs/Day Years [...] to which she is allergic. Pt states [facility] told her [facility] should provide anxiolytic. I called [facility], [...] on filedocumented in this encounter Care Teams Supervisor Press Room Relationship Specialty Start Date End Date Dony Vu APRN [address] [place] [address] PCP - General 09/29/12 12/02/14 documented as of this encounter
--- OUTSIDE RECORDS SUMMARY | 2024-05-04 11:58 | XMS_ITS | Encounter Summary ---
Author Organization [facility] [place] [address] Care Team Providers Care Preparation Operator Name Role Phone Sky Jensen MD Primary Care Provider [phone] Reason for Visit * Reason Comments Hirsutism New Patient Encounter Details Date Type Department Care Team (Latest Contact Info) Description 12/18/2014 2:00 PM EDT Office Visit Endocrinology at [facility] [place] [address] Riya Zarate MD [facility] [place] [place] [address] Hyperandrogenism Discharge Disposition: Home Social History Tobacco Use [...] documented in this encounter Progress Notes * Riya Zarate MD - 12/18/2014 4:18 PM EDT I have seen the patient and reviewed Dr. Elizondo's above history and I agree with the details as written. The assessment and plan were formulated in discussion with me and I agree with them as documented. Pt has mildly elevated DHEAS associated with hirsutism but having regular periods and no problem with but frequent miscarriage (G4Ab4) for unplanned , already had bilat tubal ligation. Will cehck labs to r/o heterozygous or mild late-onset CAH or mild form of 11-beta HSDwhich may affect only adrenal DHEAS & start treatment using spironolactone 50 mg bid as planned. Thanks for the consult. Riya Zarate MD * Maldonado Elizondo MD - 12/17/2014 9:47 AM EDT Endocrinology Consult Note Reason for Visit: Consult requested by Sky Jensen MD for evaluation of hyperandrogenism HPI: The patient is a 24-y/o lady with a PMH significant for multiple miscarriages who presents in consultation for evaluation of hyperandrogenism. She reports difficulty with hair growth over the past month. 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 While the androgen levelsmay be able to be lowered by directly [...] documented as of this encounter Results * (ABNORMAL) 17-Hydroxyprogesterone (12/19/2014) 17-Hydroxyprog (JANUARY) 93(Externa l Lab) Blood specimen (specimen) 12/19/2014 Riya Zarate MD LAB SEND OUT KAMI ALLEN documented in this encounter Visit Diagnoses Diagnosis Hyperandrogenism Other ovarian hyperfunction documented in this encounter Care Teams Preparation Operator Relationship Specialty Start Date End Date Sky Jensen MD [address] [address] PCP - General 12/03/14 07/22/20 documented as of this encounter
--- OUTSIDE RECORDS SUMMARY | 2024-05-04 11:58 | XMS_ITS | Encounter Summary ---
Author Organization [facility] [place] [address] Care Team Providers Care Real Estate Account Executive Name Role Phone Sky Jensen MD Primary Care Provider Encounter Details Date Type Department Care Team (Latest Contact Info) Description 11/01/2015 7:37 AM EST - 11/01/2015 11:59 PM [facility] Hospital Encounter Non-Invasive Cardiology Lab [facility] [place] [address] Thang Isidro MD [facility] [place] [address] Vasovagal syncope Discharge Disposition: Home Social History [...] Procedure Name Priority Date/Time Associated Diagnosis Comments STRESS TEST, EXERCISE (TREADMILL) Routine 11/01/2015 9:44 AM EST Vasovagal syncope documented in this encounter Results * Stress Test, Exercise (Treadmill) (11/01/2015 9:44 AM EST) Anatomical Region Laterality Modality Other Thang Isidro MD CARDIAC SERVICES ORD ERABLES documented in this encounter Visit Diagnoses Diagnosis Vasovagal syncope Syncope and collapse documented in this encounter Care Teams Real Estate Account Executive Relationship Specialty Start Date End Date Sky Jensen MD [address] [place] [address] PCP - General 12/03/14 07/22/20 documented as of this encounter
--- OUTSIDE RECORDS SUMMARY | 2024-05-04 11:58 | XMS_ITS | Encounter Summary ---
[place] [address] Care Team Providers Care Blood Bank Manager Name Role Phone Cornelia Hernandez Primary Care Provider Encounter Details Date Type Department Care Team (Late st Contact Info) Description 06/10/2021 Telephone [place] [address] Brook Michelle DPM [facility] [place] [address] Social History Tobacco Use Types Packs/Day Years [...] on filedocumented in this encounter Care Teams Blood Bank Manager Relationship Specialty Start Date End Date Cornelia Hernandez PA [address] [place] [address] PCP - General Family Medicine 07/23/20 06/03/23 documented as of this encounter
--- OUTSIDE RECORDS SUMMARY | 2024-05-04 11:59 | XMS_ITS | Encounter Summary ---
[facility] [place] [place] [address] Care Team Providers Care Helpdesk Specialist Name Role Phone Jh Guillaume MD Primary Care Provider [phone] Encounter Details Date Type Department Care Team (Late st Contact Info) Description 08/01/2012 12:30 PM EST Office Visit Gastroenterology at [facility] [place] [address] CLINIC, Celeste Finley, marketing and promotions manager Disposition: Home Social History Tobacco Use Types Packs/Day Years Used Date Smoking Tobacco: Every Day Alcohol Use Standard Drinks/Week Comments No 0 (1 standard drink = 0.6 oz pur e alcohol) Sex and Gender Information Value Date Recorded Sex Assigned at Not on file Gender Identity Not on file Sexual Orientation Not on file documented as of this encounter Progress Notes * Celeste Fisher, RN - 08/01/2012 12:50 PM EST 1245 Garcia capsule deployed at 34 cm below incisors First ph is 7.2. documented in this encounter Plan of Treatment Not on file documented as of this encounter Visit Diagnoses Not on filedocumented in this encounter Care Teams Helpdesk Specialist Relationship Specialty Start Date End Date Jh Guillaume MD [address] [place] [address] PCP - General 08/01/12 09/28/12 documented as of this encounter
--- OUTSIDE RECORDS SUMMARY | 2024-05-04 11:59 | XMS_ITS | Encounter Summary ---
Author Organization [facility] [place] [id number] Care Team Providers Care Per Diem Registered Nurse Name Role Phone Héctor Eid MD Primary Care Provider [phone] Encounter Details Date Type Department Care Team (Late st Contact Info) Description 08/05/2012 7:05 PM EST Office [place] [phone] Alfonso Rodarte MD [facility] DR GASTROENTEROLOGY [place] [address] GERD (gastroesophageal reflux disease) (Primary Dx) Discharge [...] Progress Notes * Alfonso Rodarte MD - 08/15/2012 7:47 PM EST [id number] WIRELESS pH CAPSULE STUDY AFTER UPPER ENDOSCOPY Lori Cruz Female, 22 yrs, 1990 PCP: HÉCTOR EID STUDY DATES: 08/01/12 to 08/03/12 INTERPRETATION DATE: 08/14/12 PROVIDER: [place]fon[place] ([id number]) INDICATION Reflux symptoms. NOTE: This study was [...] in pH values throughout the study consistent witha technically adequate study. DAY ONE Total Number [...] 7.9% Percent of Supine Recording Time: 2.3% Caudu-Vmznn-Qicx (Total) Fraction of Time with pH Less Than 4%: 8.8% Calculated DeMeester Score (normal values are up to 14.72) Day One Calculated DeMeester Score: 34.7 Day Two Calculated DeMeester Score: 25 Drbxq-Ueots-Gwpp DeMeester Score (Total): 29.9 Day One Symptoms Association Probability (SAP) for Heartburn: 100% Regurgitation: 100% Chest pain: 77% Other: 0% Day Two SAP for Heartburn: 95% Regurgitation: 100% Chest pain: 65% Other: 0% Joyyi-Uigzu-Gnrt SAP for Heartburn: 99% Regurgitation: 100% Chest [...] specific symptom, i.e., heartburn, regurgitation, chest pain, is associated with acid reflux. By convention, SAP values greater than 95% are positive. Alfonso Rodarte MD, PhD die try out worker, [employer] Section of Gastroenterology [place] [address] V: [phone] F: [phone] AMANUEL/jose EC/CC: PCP Maxi James DO [facility] [address] [place] [address] [place] [address] documented in this encounter Plan of Treatment Not on file documented as of this encounter Visit Diagnoses Diagnosis GERD (gastroesophageal reflux disease)- Primary Esophageal reflux documented in this encounter Care Teams Per Diem Registered Nurse Relationship Specialty Start Date End Date Héctor Eid MD [address] [place] [address] PCP - General 08/01/12 09/28/12 documented as of this encounter
--- OUTSIDE RECORDS SUMMARY | 2024-05-04 11:59 | XMS_ITS | Encounter Summary ---
Author Organization [facility]ly [facility] [place] [address] Care Team Providers Care Manager Packaging Name Role Phone Jh Guillaume MD Primary Care Provider [phone] Encounter Details Date Type Department Care Team (Late st Contact Info) Description 08/01/2012 12:30 PM EST - 08/01/2012 1:00 PM EST Surgery [place] [address] Avtar Zavala MD [facility] [place] [address] UPPER GI ENDOSCOPY Social History Tobacco Use Types Packs/Day Years [...] documented in this encounter Discharge Instructions * Discharge Instructions* Debora Zaidi RN - 08/01/2012 12:59 PM EST Please call [phone], before 5pm with problems, questions or concerns, after 5pm call the Hospital at [phone] and ask to speak to the Briquette Operator director of application development and the motorboat operator will contactthat person for you. Discharge instructions reviewed with [...] foul drainage occurs, please contact your Doctor. * Attachments The following attachments cannot be sent through Care Everywhere. * UPPER GI ENDOSCOPY: WHAT TO EXPECT AT HOME (STATELESS) documented in this encounter Medications at Time of Discharge Medication Sig Dispensed Refills Start Date End Date ranitidine (ZANTAC) 150 mg tablet Take 150 mg by mouth 3 times daily. 12/18/2014 documented as of this encounter H&P Notes * Avtar Zavala MD - 08/01/2012 12:16 PM [...] signed. documented in this encounter Miscellaneous Notes * Miscellaneous - Provider, Scanning - 08/01/2012 12:19 PM EST documented in this encounter Plan of Treatment Not on file documented as of this encounter Procedures Procedure Name Priority Date/Time Associated Diagnosis Comments UPPER GI ENDOSCOPY 08/01/2012 12 :37 PM EST gonzalez placement ok'd by ASIM Rocha and MARISEL is are aware SH UPPER GI ENDOSCOPY Routine 08/01/2012 12 :36 PM EST documented in this encounter Results * UPPER GI ENDOSCOPY (08/01/2012 12:36 PM EST) Pathologist [facility] UPPER GI ENDOSCOPY [facility] Endoscopy Patient Name: Newberry Cruz ? Procedure Date: 08/01/2012 12:36 PM ? Date of : 1990 ? Age: 22 ? Order #: [id number] ? Procedure: ? Upper GI endoscopy Indications: ? Heartburn, For Gonzalez placement Providers: ? Avtar Zavala MD, Frances Lazaro, ? FRANKLIN, Yara Daley, Long Term Acute Care Registered Nurse Referring MD: ?Dony Vu MD Medicines: ? Midazolam 4 mg IV, Fentanyl 200 ? micrograms IV, Diphenhydramine 50 mg ? IV Complications: ? No immediate complications. Procedure: ? Pre-Anesthesia Assessment: ? - ASA Grade Assessment: I - A normal, ? healthy patient. ? The procedure, indications, benefits, ? risks and alternatives were explained ? to the patient. Specifically ? discussed were potential ? complications including, but not ? limited to, bleeding, perforation, ? infection, missing a cancer, and ? adverse medication reactions. The New ? Lease 2012 was introduced through the ? and advanced to the. The patient ? tolerated the procedure well. The ? upper GI endoscopy was accomplished ? without difficulty. The patient ? tolerated the procedure well. ? Findings: [...] examined duodenum. Recommendation: ?Await Gonzalez results ? _ Avtar Zavala MD 08/01/2012 12:50 PM This report has been signed electronically. Number of Addenda: 0 Note Initiated On: 08/01/2012 12:36 PM PROVATION 08/01/2012 12:3 6 PM EST Dony Vu APRN GENERAL SURGI BARAK ORDERABLES PROVATION documented in this encounter Visit Diagnoses Not on filedocumented in this encounter Administered Medications Inactive Administered Medications - up to 3 most recent administrations Medication Order MAR Action Action Date Dose Rate Site diphenhydrAMINE (BENADRYL) injection ONCE PRN, Starting on Wed08/01/12 at 1239, Until Wed08/01/12 at 1736, Itching, Intra-Operative (Intra-Procedure), Routine Given 08/01/2012 12:42 PM EST 25 mg Given 08/01/2012 12:39 PM EST 25 mg fentaNYL 50mcg/mL injection ONCE PRN, Starting on Wed08/01/12 at 1239, Until Wed08/01/12 at 1736, Pain, Intra-Operative (Intra-Procedure), Routine Given 08/01/2012 12:[address] 50 mcg Given 08/01/2012 12:42 PM EST 50 mcg Given 08/01/2012 12:39 PM EST 100 mcg midazolam (VERSED) injection ONCE PRN, Starting on Wed08/01/12 at 1240, Until Wed08/01/12 at 1736, Sleep, Intra-Operative (Intra-Procedure), Routine Given 08/01/2012 12:46 PM EST 1 mg Given 08/01/2012 12:42 PM EST 1 mg Given 08/01/2012 12:40 PM EST 2 mg sodium chloride 0.9% infusion 50 mL/hr, Intravenous, CONTINUOUS, Starting on Wed08/01/12 at 1130, Until Wed08/01/12 at 1736, Endoscopy (Day of Procedure) New Bag 08/01/2012 11:30 AM EST 50 mL/hr 50 mL/hr documented in this encounter Active and Recently Administered Medications Times are shown in EST. Continuous Medication Order 07/30/2012 07/31/2012 08/01/2012 sodium chloride 0.9% infusion (CANCELED) 50 mL/hr, Intravenous, CONTINUOUS, Starting on Wed08/01/12 at 1130, Until Wed08/01/12 at 1736, Endoscopy (Day of Procedure) 1130 (New Bag - Prov ider: Debora Zaidi RN) PRN Medication Order 07/30/2012 07/31/2012 08/01/2012 diphenhydrAMINE (BENADRYL) injection (CANCELED) ONCE PRN, Starting on Wed08/01/12 at 1239, Until Wed08/01/12 at 1736, Itching, Intra-Operative (Intra-Procedure), Routine 1239 (Given - Provid er: Frances Lazaro RN - Comment: first dose of moderate sedation)1242 (Given - Provider: Frances Lazaro RN - Comment: med for sedation) fentaNYL 50mcg/mL injection (CANCELED) ONCE PRN, Starting on Wed08/01/12 at 1239, Until Wed08/01/12 at 1736, Pain, Intra-Operative (Intra-Procedure), Routine 1239 (Given - Provid er: Frances Lazaro RN - Comment: first dose of moderate sedation)1242 (Given - Provider: Frances Lazaro RN - Comment: med for sedation)1245 (Given - Provider: Frances Lazaro RN - Comment: med for sedation) midazolam (VERSED) injection (CANCELED) ONCE PRN, Starting on Wed08/01/12 at 1240, Until Wed08/01/12 at 1736, Sleep, Intra-Operative (Intra-Procedure), Routine 1240 (Given - Provid er: Frances Lazaro RN - Comment: first dose of modeerate sedation)1242 (Given - Provider: Frances Lazaro RN - Comment: med for sedation)1246 (Given - Provider: Frances Lazaro RN - Comment: med for sedation) documented in this encounter Care Teams Manager Packaging Relationship Specialty Start Date End Date Jh Guillaume MD [address] [place] [address] PCP - General 08/01/12 09/28/12 documented as of this encounter
--- OUTSIDE RECORDS SUMMARY | 2024-05-04 11:59 | XMS_ITS | Encounter Summary ---
Author Organization [facility] [place] [address] Care Team Providers Care Bill Of Materials Clerk Name Role Phone Jh Guillaume MD Primary Care Provider [phone] Encounter Details Date Type Department Care Team (Latest Contact Info) Description 08/01/2012 10:58 AM EST - 08/01/2012 3:35 PM EST Hospital En[place] [address] Avtar Zavala MD [facility] [place] [address] Discharge Disposition: Home Social History Tobacco Use [...] - 08/01/2012 12:59 PM EST Please call [phone], before 5pm with problems, questions or concerns, after 5pm call the Hospital at [phone] and ask to speak to the Machine Heel Sprayer precision grinder and the code machine operator will contactthat person for you. Discharge [...] GI ENDOSCOPY: WHAT TO EXPECT AT HOME (IVORIAN) documented in this encounter Medications at Time [...] GI ENDOSCOPY (08/01/2012 12:36 PM EST) Pathologist [facility] UPPER GI ENDOSCOPY [facility] Endoscopy Patient Name: [place] Cruz ? Procedure Date: 08/01/2012 12:36 PM ? Date of : 1990 ? Age: 22 ? Order #: [id number] ? Procedure: ? Upper GI endoscopy Indications: ? Heartburn, For Gonzalez placement Providers: ? Avtar Zavala MD, Frances Lazaro, ? FRANKLIN, Yara Daley, Sill Worker Referring MD: ?Dony Vu MD Medicines: ? [...] Date Dose Rate Site sodium chloride 0.9% infusion 50 mL/hr, Intravenous, [...] sedation) documented in this encounter Care Teams Bill Of Materials Clerk Relationship Specialty Start Date End Date Jh Guillaume MD [address] [place] [address] [place] [address] PCP - General 08/01/12 09/28/12 documented as of this encounter
[2024-05-04 20:05] LABS: ALT 32 U/L (14-59); AST 23 U/L (15-37); Alkaline Phosphatase 79 U/L (46-116); Anion Gap 8.3 mmol/L (3-11); BUN 13 mg/dL (7-18); Bilirubin, Total 0.53 mg/dL (0.2-1.0); CO2 26.7 mmol/L (21.0-32.0); Calcium 8.7 mg/dL (8.5-10.1); Calculated LDL 110 mg/dL (<100); Chloride 103 mmol/L (98-107); Cholesterol 184 mg/dL (<200); Estimated GFR 76.76 (mL/min/1.73m2); Glucose 93 mg/dL (74-106); HDL Cholesterol 61 mg/dL (40-60); Sodium 138 mmol/L (136-145); Total Protein 7.2 g/dL (6.4-8.2); Triglyceride 66 mg/dL (<150)
[2024-05-07 12:47] LABS: HIV-1/2 Ag & Ab Screen Negative (Negative)
[2024-05-08 13:28] LABS: Hepatitis C Ab w Rflx HCV PCR Negative (Negative)
== END 2024-05-04 11:57 | disposition home or self-care (01) ==
LOC: NCHCN 11:56
PROVIDERS: PCP Internal Medicine; Visit Provider Physician Assistant
DX: Z11.59 Encounter for screening for other viral diseases (principal); Z11.4 Encounter for screening for human immunodeficiency virus [HIV]; Z13.220 Encounter for screening for lipoid disorders
CPT/HCPCS: 80053; 80061; 86803; 87389

== ENCOUNTER 2024-06-26 15:29 | Outpatient (REF) | payer OTHER, SELFPAY ==
[2024-06-26 21:53] LABS: Abs Immature Grans 0.02 10^3/uL (0.0-0.06); Absolute Basophil Count 0.11 10^3/uL (0.0-0.2); Absolute Eosinophil Count 0.12 10^3/uL (0.0-0.7); Absolute Lymphocyte Count 3.59 10^3/uL (1.2-3.4); Absolute Monocyte Count 0.77 10^3/uL (0.1-0.8); Eosinophils % 1.1 %; HCT 40.4 % (36.0-46.0); HGB 13.4 g/dL (11.2-15.7); Immature Grans % 0.2 %; Lymphocytes % 31.7 %; MCH 30.7 pg (27.0-33.0); MCHC 33.2 % (32.0-36.0); MCV 93 fL (80-95); MPV 11.1 fL (8.0-11.0); Monocytes % 6.8 %; Neutrophils % 59.2 %; Platelet Count 300 10^3/uL (130-400); RBC 4.36 10^6/uL (3.93-5.22); RDW-SD 41.7 fL; WBC 11.32 10^3/uL (4.4-10.8)
[2024-06-26 22:04] LABS: ALT 27 U/L (14-59); AST 17 U/L (15-37); Albumin 4.2 g/dL (3.4-5.0); Alkaline Phosphatase 100 U/L (46-116); Anion Gap 11.7 mmol/L (3-11); BUN 12 mg/dL (7-18); Bilirubin, Total 0.29 mg/dL (0.2-1.0); CO2 25.3 mmol/L (21.0-32.0); CREATININE 0.8 mg/dL (0.55-1.02); Calcium 9.1 mg/dL (8.5-10.1); Chloride 105 mmol/L (98-107); Estimated GFR 100.33 (mL/min/1.73m2); Glucose 99 mg/dL (74-106); Sodium 142 mmol/L (136-145); Total Protein 7.4 g/dL (6.4-8.2)
== END 2024-06-26 15:30 | disposition home or self-care (01) ==
LOC: LBN 15:29
PROVIDERS: PCP Internal Medicine; Visit Provider Physician Assistant
DX: R10.9 Unspecified abdominal pain (principal); N39.0 Urinary tract infection, site not specified; R82.89 Other abnormal findings on cytological and histological examination of urine
CPT/HCPCS: 80053; 85025; 87086

== ENCOUNTER 2024-06-30 00:35 | Outpatient (CLI) | payer OTHER, SELFPAY ==
--- OUTSIDE RECORDS SUMMARY | 2024-06-30 00:40 | XMS_ITS | Encounter Summary ---
Author Organization [facility] Address [address] [place] [address] Care Team Providers Care Inspector Screen Printing Name Role Phone Dony Vu SHAVON Primary Care Provider Encounter Details Date Type Department Care Team (Late st Contact Info) Description 11/22/2013 Results Only [facility] Laboratory Services - [facility] ([facility]) [address], [place] [id number] Neftali Desai MD [address] [place] [address] Social History Tobacco Use Types Packs/Day Years [...] ? LESLEY HAYWARD ? Accession #: ? [id number] : ? 1990 (Age: 23) ??F ?Collect [...] Desai MD PATHOLOGY ORDERABLES Performing Organization Address City/State/[facility] Co de Phone Number [facility] [address] [place] [address] documented in this encounter Visit Diagnoses Not on filedocumented in this encounter Care Teams Inspector Screen Printing Relationship Specialty Start Date End Date Dony Vu APRN [address] [place] [address] PCP - General 04/26/12 11/11/14 documented as of this encounter
--- OUTSIDE RECORDS SUMMARY | 2024-06-30 00:40 | XMS_ITS | Encounter Summary ---
Author Organization [facility] Address [address] [place] [address] Care Team Providers Care Solar Installation Foreman Name Role Phone None, Provider Primary Care Provider Unavailabl e Encounter Details Date Type Department Care Team (Late st Contact Info) Description 06/10/2021 Lab Requisition [facility] Pathology & Laboratory Medicine - [facility] [address] [place], [place] [id number] Outr Resulting Lab, Provider Social History Tobacco [...] Outr Resulting Lab MICROBIOLOGY - GENERAL ORDERABLES [facility] [address] [place] [address] * COVID-19 TESTING (06/09/2021 9:00 EDT) [facility] COVID-19 rt-PCR Result Negative Negative 06/11/2021 17:[address] [facility] Comment: This test has [...] developed and its performance characteristics determined by [facility]. [...] testing. This test is based on the [facility] COVID-19 Emergency Use Authorization (EUA) assay, with minor modification as defined by the FDA Performed on the [employer] 7 Flex RT-PCR System. This test was developed and its performance characteristics determined by [facility]. [...] testing. This test is based on the [facility] COVID-19 Emergency Use Authorization (EUA) assay, with minor modification as defined by the FDA Performed on the [employer] 7 Pro RT-PCR System. Performing Lab RAMIRO [facility] 06/11/2021 17:[address] [facility] Swab 06/09/2021 9:00 EDT 06/10/2021 16:03 EDT Provider Outr Resulting Lab MICROBIOLOGY - GENERAL ORDERABLES Performing Organization Address City/State/[facility] Co de Phone Number [facility] [address] [place] [address] documented in this encounter Visit Diagnoses Not on filedocumented in this encounter Care Teams Solar Installation Foreman Relationship Specialty Start Date End Date None, Provider PCP - General 10/02/15 documented as of this encounter
--- OUTSIDE RECORDS SUMMARY | 2024-06-30 00:40 | XMS_ITS | Encounter Summary ---
Author Organization [facility] Address [address] [place] [address] Care Team Providers Care Construction Operations Manager Name Role Phone None, Provider Primary Care Provider Unavailabl e Encounter Details Date Type Department Care Team (Late st Contact Info) Description 12/15/2021 Lab Requisition [facility] Pathology & Laboratory Medicine - [address] [id number] Outr Resulting Lab, Provider Social History Tobacco [...] Outr Resulting Lab MICROBIOLOGY - GENERAL ORDERABLES [facility] [address] [place] [address] * COVID-19 TESTING (12/15/2021 9:00 EDT) COVID-19 rt-PCR Result Negative Negative 12/17/2021 11:58 EDT [facility] Comment: This test has not [...] was performed using the nas SARS-CoV-2 assay ([employer] on the Nas 6800 System Performing Lab Nas [address] [facility] 12/17/2021 11:58 EDT [facility] Swab 12/15/2021 9:00 EDT 12/16/2021 16:32 EDT Provider Outr Resulting Lab MICROBIOLOGY - GENERAL ORDERABLES [facility] [address] [place] [address] documented in this encounter Visit Diagnoses Not on filedocumented in this encounter Care Teams Construction Operations Manager Relationship Specialty Start Date End Date None, Provider PCP - General 10/02/15 documented as of this encounter
--- OUTSIDE RECORDS SUMMARY | 2024-06-30 00:40 | XMS_ITS | Encounter Summary ---
Author Organization [facility] Address [address] [place] [address] Care Team Providers Care Account Services Coordinator Name Role Phone None, Provider Primary Care Provider Unavailabl e Encounter Details Date Type Department Care Team (Late st Contact Info) Description 06/10/2021 Lab Requisition [facility] Pathology & Laboratory Medicine - [facility] [address] [place] [address] Outr Resulting Lab, Provider Social History Tobacco [...] Quantiferon Interpretation Negative Negative 06/11/2021 12:01 EDT [facility] Comment:No interferon-gamma response to M. tuberculosis antigens was detected. ??Infection with M. tuberculosis is unlikely. A single negative result does not exclude infection with M. tuberculosis. ??In patients at high risk for M. tuberculosis infection, a second test should be considered. TB1 Ag minus Nil 0.07 IU/ml 06/11/20 12:01 EDT [facility] TB2 Ag minus Nil 0.02 IU/mL 06/11/20 12:01 EDT [facility] Blood VENOUS BLOOD / Unknown 06/09/2021 15:27 EDT 06/11/2021 11:30 EDT Narrative [facility] - 06/11/2021 12:01 EDT Results were obtained with the [employer] QuantiFERON-TB Gold Plus CLIA. New platform in use 05/28/2021 Provider Outr Resulting Lab IMMUNOLOGY A ND SEROLOGY ORDERABLES Performing Organization Address [facility] de Phone Number [facility] [address] [place] [address] * QUANTIFERON MITOGEN (PERFORMABLE) (06/09/2021 15:27 EDT) Blood VENOUS BLOOD / Unknown 06/09/2021 15:27 EDT 06/10/2021 16:31 EDT Provider Outr Resulting Lab IMMUNOLOGY A ND SEROLOGY ORDERABLES Performing Organization Address City/[facility] Co de Phone Number [facility] [address] [place] [address] * QUANTIFERON TB2 (PERFORMABLE) (06/09/2021 15:27 EDT) Blood VENOUS BLOOD / Unknown 06/09/2021 15:27 EDT 06/10/2021 16:31 EDT Provider Outr Resulting Lab IMMUNOLOGY A ND SEROLOGY ORDERABLES Performing Organization Address [facility] Co de Phone Number [facility] [address] [place] [address] * QUANTIFERON TB1 (PERFORMABLE) (06/09/2021 15:27 EDT) Blood VENOUS BLOOD / Unknown 06/09/2021 15:27 EDT 06/10/2021 16:31 EDT Provider Outr Resulting Lab IMMUNOLOGY A ND SEROLOGY ORDERABLES Performing Organization Address [facility] Co de Phone Number [facility] [address] [place] [address] * QUANTIFERON NIL (PERFORMABLE) (06/09/2021 15:27 EDT) Blood VENOUS BLOOD / Unknown 06/09/2021 15:27 EDT 06/10/2021 16:31 EDT Provider Outr Resulting Lab IMMUNOLOGY A ND SEROLOGY ORDERABLES Performing Organization Address [facility] Co de Phone Number [facility] [address] [place] [address] documented in this encounter Visit Diagnoses Not on filedocumented in this encounter Care Teams Account Services Coordinator Relationship Specialty Start Date End Date None, Provider PCP - General 10/02/15 documented as of this encounter
--- OUTSIDE RECORDS SUMMARY | 2024-06-30 00:40 | XMS_ITS | Encounter Summary ---
Author Organization [facility] [place] [address] Care Team Providers Care Speech Language Pathology Assistant Name Role Phone Sky Jensen MD Primary Care Provider [phone] Encounter Details Date Type Department Care Team [...] on filedocumented in this encounter Care Teams Speech Language Pathology Assistant Relationship Specialty Start Date End Date Sky Jensen MD [address] [place] [address] PCP - General General Internal Medicine 06/04/23 documented as of this encounter
--- OUTSIDE RECORDS SUMMARY | 2024-06-30 00:40 | XMS_ITS | Encounter Summary ---
Author Organization [facility] Address [address] [place] [address] Care Team Providers Care Dairy Manufacturing Technologist Name Role Phone None, Provider Primary Care Provider Unavailabl e Encounter Details Date Type Department Care Team (Late st Contact Info) Description 01/07/2024 Lab Requisition [facility] Pathology & Laboratory Medicine - [facility] [address] [place] [address] Outr Resulting Lab, Provider Social History Tobacco [...] ova and parasites seen. 01/10/2024 13:24 EDT [facility] Feces SPECIMEN FROM RECTUM / Unknown 01/07/2024 6:30 EDT 01/07/2024 21:09 EDT Narrative [facility] - 01/10/2024 13:24 EDT (If Cryptosporidium, Cyclospora, or Microsporidium are suspected, specific tests must be requested.) Single negative specimen does not rule out the possibility of a parasitic infection. Provider Outr Resulting Lab MICROBIOLOGY - GENERAL ORDERABLES [facility] [address] [place] [address] documented in this encounter Visit Diagnoses Not on filedocumented in this encounter Care Teams Dairy Manufacturing Technologist Relationship Specialty Start Date End Date None, Provider PCP - General 10/02/15 documented as of this encounter
--- OUTSIDE RECORDS SUMMARY | 2024-06-30 00:40 | XMS_ITS | Encounter Summary ---
Author Organization [facility] Address [address] [place] [address] Care Team Providers Care Environmental Compliance Technician Name Role Phone None, Provider Primary Care Provider Unavailabl e Encounter Details Date Type Department Care Team (Late st Contact Info) Description 03/04/2023 Lab Requisition [facility] Pathology & Laboratory Medicine - [facility] [address] [place] [address] Outr Resulting Lab, Provider Social History Tobacco [...] Lyme Ab Negative Negative 03/05/2023 11:57 EDT [facility] Blood VENOUS BLOOD / Unknown 03/04/2023 8:00 EDT 03/04/2023 18:07 EDT Provider Outr Resulting Lab IMMUNOLOGY A ND SEROLOGY ORDERABLES [facility] [address] [place] [address] documented in this encounter Visit Diagnoses Not on filedocumented in this encounter Care Teams Environmental Compliance Technician Relationship Specialty Start Date End Date None, Provider PCP - General 10/02/15 documented as of this encounter
--- OUTSIDE RECORDS SUMMARY | 2024-06-30 00:40 | XMS_ITS | Encounter Summary ---
Author Organization [facility] Address [address] [place] [address] Care Team Providers Care Sports Medicine Coordinator Name Role Phone None, Provider Primary Care Provider Unavailabl e Encounter Details Date Type Department Care Team (Late st Contact Info) Description 10/04/[address] [facility] Pathology & Laboratory Medicine - [facility] [address] [place], [place] [id number] Outr Resulting Lab, Provider Social History Tobacco [...] Outr Resulting Lab MICROBIOLOGY - GENERAL ORDERABLES [facility] [address] [place] [address] * COVID-19 TESTING (10/03/2021 9:10 EST) COVID-19 rt-PCR Result Negative Negative 10/05/2021 15:34 EST [facility] Comment: This test has not [...] developed and its performance characteristics determined by [facility]. It has not been cleared [...] testing. This test is based on the [facility] COVID-19 Emergency Use Authorization (EUA) assay, with minor modification as defined by the FDA Performed on the [employer] 7 Pro RT-PCR System. Performing Lab RAMIRO [facility] Lab 10/05/2021 15:34 EST [facility] Swab 10/03/2021 9:10 EST 10/04/2021 21:49 EST Provider Outr Resulting Lab MICROBIOLOGY - GENERAL ORDERABLES [facility] [address] [place] [address] documented in this encounter Visit Diagnoses Not on filedocumented in this encounter Care Teams Sports Medicine Coordinator Relationship Specialty Start Date End Date None, Provider PCP - General 10/02/15 documented as of this encounter
--- OUTSIDE RECORDS SUMMARY | 2024-06-30 00:40 | XMS_ITS | Encounter Summary ---
Author Organization [facility] Address [address] [place] [address] Care Team Providers Care Theatre Director Name Role Phone None, Provider Primary Care Provider Unavailabl e Encounter Details Date Type Department Care Team (Late st Contact Info) Description 08/22/2020 Results Only [facility] Lab - Main [address] [id number] Unknown, Provider, Social History Tobacco Use Types [...] COVID-19 TESTING (08/22/2020 7:29 EST) Performing Lab [facility] 08/24/2020 10:40 [facility] Comment: Please indicate the Triage TierT2 Test performed or referred by The [address] [address] COVID-19 rt-PCR Result Not Detected Negative 08/24/2020 10:40 [facility] Comment: 2019-novel Coronavirus (2019-nCoV) not detected [...] in accordance with CLIA regulations, [employer] (CAP) guidelines (Dec 07, 2019), and FDA guidance (Nov 18, 2019). This test is only for use under the Food and Drug Administration's Emergency Use Authorization. 08/22/2020 7:29 EST 08/22/2020 7:29 EST Provider Unknown MICROBIOLOGY - GENER AL ORDERABLES [facility] [address] [place] [address] documented in this encounter Visit Diagnoses Not on filedocumented in this encounter Care Teams Theatre Director Relationship Specialty Start Date End Date None, Provider PCP - General 10/02/15 documented as of this encounter
--- OUTSIDE RECORDS SUMMARY | 2024-06-30 00:40 | XMS_ITS | Encounter Summary ---
Author Organization [facility] Address [address] [place] [address] Care Team Providers Care Train Clerk Name Role Phone None, Provider Primary Care Provider Unavailabl e Encounter Details Date Type Department Care Team (Late st Contact Info) Description 08/07/2020 Results Only [facility] - Main [address] [id number] Unknown, Provider, Social History Tobacco Use Types [...] Procedure Name Priority Date/Time Associated Diagnosis Comments [facility] Routine 08/07/2020 13:30 EST documented in this encounter Results * COVID-19 (08/07/2020 13:30 EST) [address] Not Detected 08/09/2020 11:10 EST [facility] Comment: TESTING PERFORMED AT [facility]; Analyte ? Result 2019-nCoV ? Not detected Negative results do not preclude 2019-nCoV infection and should not be used as the sole basis for treatment or other patient management decisions. ??Negative results must be combined with clinical observations, patient history and epidemlogical information. 08/07/2020 13:3 0 EST 08/07/2020 16:20 EST Provider Unknown MICROBIOLOGY - GENER AL ORDERABLES Performing Organization Address City/State/[facility] Co de Phone Number [facility] [address] [place] [address] documented in this encounter Visit Diagnoses Not on filedocumented in this encounter Care Teams Train Clerk Relationship Specialty Start Date End Date None, Provider PCP - General 10/02/15 documented as of this encounter
--- OUTSIDE RECORDS SUMMARY | 2024-06-30 00:40 | XMS_ITS | Encounter Summary ---
Author Organization [facility] Address [address] [place] [address] Care Team Providers Care Squeegee Tender Name Role Phone None, Provider Primary Care Provider Unavailabl e Encounter Details Date Type Department Care Team (Late st Contact Info) Description 08/21/2022 Lab Requisition [facility] Pathology & Laboratory Medicine - [facility] [address] [place] [address] Neftali Hicks MD [address] [place] [address] Excessive and frequent menstruation with regular cycle; [...] management options, if applicable. 08/28/2022 15:07 EST [facility] Final Diagnosis A. UTERUS AND CERVIX, HYSTERECTOMY: - Endometrium: -Proliferative. - Myometrium: -No specific pathologic features. - Cervix: -Transformation zone was multifocal atypical squamous metaplasia. See comment. - Serosa: -No specific pathologic features. 08/28/2022 15:07 [facility] Diagnosis Comment Several [...] pap tests and gynecologic history is essential. Belt Line Feeder slides of this case were reviewed at the intradepartmental consultation conference. Immunoperoxidase stains were performed on this case to further characterize the lesion. ANTIBODY(CLONE)(BLO CK):RESULT P16 (E6H4TM, [place]) (A11): Cytoplasmic staining only. Ki67 (MIB-1) (K2, [...] performance characteristics have been determined by [facility] and/or by the referring laboratory. The positive [...] high complexity clinical laboratory testing. 08/28/2022 15:07 [facility] Attestation By the signature below, the attending physician certifies that they have 1) personally conducted a gross and/or microscopic examination of the described specimen(s), and/or personally interpreted the results of laboratory testing of the described specimen(s), and 2) personally rendered or confirmed the above diagnosis. 08/28/2022 15:07 [facility] at 1507 Clinical History Menorrhagia with reg cycles; dysmenorrhea; BECKY II; clinical diagnosis code: N92.0, N94.6, N87.1 08/28/2022 15:07 [facility] Gross Description A. [...] intramural, submucosal, or subserosal nodules are identified. Belt Line Feeder sections, to include the entire cervix, are submitted as follows: BLOCK DOMÍNGUEZ A1-A5- cervix from 12 o'clock to 3 o'clock A6-A11- cervix from 3 o'clock to 6 o'clock A12-A16- cervix from 6 o'clock to 9 o'clock A17-A21- cervix from 9 o'clock to 12 o'clock A22-A23- anterior endomyometrium A24-A25- posterior endomyometrium GALI EASLEY(ASCP) 08/24/2022 9:47 08/28/2022 15:07 [facility] Performing Lab [facility] 08/28/2022 15:07 [facility] Scanned Images 08/28/2022 15:07 [facility] Tissue SPECIMEN FROM UTERUS / Unknown 08/21/2022 11:49 EST 08/21/2022 21:12 EST Neftali Hicks MD PATHOLOGY ORDERABLES [facility] [address] [place] [address] documented in this encounter Visit Diagnoses Diagnosis Excessive and frequent menstruation with regular cycle Excessive or frequent menstruation Dysmenorrhea, unspecified Moderate cervical dysplasia Moderate dysplasia of cervix documented in this encounter Care Teams Squeegee Tender Relationship Specialty Start Date End Date None, Provider PCP - General 10/02/15 documented as of this encounter
--- OUTSIDE RECORDS SUMMARY | 2024-06-30 00:40 | XMS_ITS | Encounter Summary ---
Author Organization [facility] Address [address] [place] [address] Care Team Providers Care Home Service Advisor Name Role Phone Sky Jensen MD Primary Care Provider [phone] Encounter Details Date Type Department Care Team (Latest Contact Info) Description 09/27/2015 9:46 EST - 09/27/2015 23:59 EST Hospital Encounter [address] [address] Unknown, ProviderMD Discharge Disposition: Home or Self Care Social History Tobacco Use Types Packs/Day Years Used Date Smoking Tobacco: Never Assessed Sex and Gender Information Value Date Recorded Sex Assigned at Not on file Gender Identity Not on file Sexual Orientation Not on file documented as of this encounter Discharge Disposition Disposition Code Departure Means Destination Home or Self Half-Way documented in this encounter Plan of Treatment Not on file documented as of this encounter Visit Diagnoses Not on filedocumented in this encounter Care Teams Home Service Advisor Relationship Specialty Start Date End Date Sky Jensen MD [address] [place] [address] PCP - General 11/12/14 10/01/15 documented as of this encounter
--- OUTSIDE RECORDS SUMMARY | 2024-06-30 00:40 | XMS_ITS | Encounter Summary ---
Author Organization [facility] Address [address] [place] [address] Care Team Providers Care City Surveyor Name Role Phone None, Provider Primary Care Provider Unavailabl e Encounter Details Date Type Department Care Team (Late st Contact Info) Description 05/05/2024 Lab Requisition [facility] Pathology & Laboratory Medicine - [facility] [address] [place] [address] Outr Resulting Lab, Provider Social History Tobacco [...] Procedure Name Priority Date/Time Associated Diagnosis Comments HIV 1/2 ANTIGEN AND ANTIBODY, 4TH GENERATION Routine 05/04/2024 11:40 EDT documented in this encounter Results * HIV 1/2 ANTIGEN AND ANTIBODY, 4TH GENERATION (05/04/2024 11:40 EDT) HIV 1 and 2 Antibody/p24 Antigen, 4th Generation Negative Negative 05/07/2024 12:42 EDT [facility] Comment:If acute HIV-1 infec tion is suspected in a high risk patient, submit plasma specimen for HIV-1 RNA quantitation test. Blood VENOUS BLOOD / Unknown 05/04/2024 11:40 EDT 05/05/2024 19:31 EDT Narrative [facility] - 05/07/2024 12:42 EDT Fourth Generation assay performed on the Siemens Centaur XPT. Provider Outr Resulting Lab IMMUNOLOGY A ND SEROLOGY ORDERABLES [facility] [address] [place] [address] documented in this encounter Visit Diagnoses Not on filedocumented in this encounter Care Teams City Surveyor Relationship Specialty Start Date End Date None, Provider PCP - General 10/02/15 documented as of this encounter
--- OUTSIDE RECORDS SUMMARY | 2024-06-30 00:40 | XMS_ITS | Encounter Summary ---
Author Organization [facility] Address [address] [place] [address] Care Team Providers Care Patient Case Coordinator Name Role Phone Dony Vu SHAVON Primary Care Provider Encounter Details Date Type Department Care Team (Late st Contact Info) Description 11/09/2014 Results Only [facility] [phone] Osman Brown, DO [address] [place] [phone] Social History Tobacco Use Types Packs/Day Years [...] ? LESLEY HAYWARD ? Accession #: ? [id number] ? : ? 1990 (Age: 24) ??F [...] Duran 11/10/2014 09:43 AM End of Report [facility] 11/09/2014 17:3 3 EST 11/09/2014 17:33 EST Osman Brown DO PATHOLOGY ORDERABLES [facility] [address] [place] [address] documented in this encounter Visit Diagnoses Not on filedocumented in this encounter Care Teams Patient Case Coordinator Relationship Specialty Start Date End Date Dony Vu APRN [facility] [address] [place] [phone] PCP - General 04/26/12 11/11/14 documented as of this encounter
--- OUTSIDE RECORDS SUMMARY | 2024-06-30 00:40 | XMS_ITS | Encounter Summary ---
Author Organization [facility] Address [address] [place] [address] Care Team Providers Care Concrete Boom Operator Name Role Phone None, Provider Primary Care Provider Unavailabl e Encounter Details Date Type Department Care Team (Late st Contact Info) Description 08/11/2020 Results Only [facility] - Main [address] [address] Unknown, Provider, Social History Tobacco Use Types [...] Priority Date/Time Associated Diagnosis Comments [facility] Routine 08/11/2020 15:23 EST documented in this encounter Results * COVID-19 (08/11/2020 15:23 EST) [address] Not Detected 08/12/2020 21:11 EST [facility] Comment: TESTING PERFORMED AT [facility]; Analyte ? Result 2019-nCoV ? Not detected Negative results do not preclude 2019-nCoV infection and should not be used as the sole basis for treatment or other patient management decisions. ??Negative results must be combined with clinical observations, patient history and epidemlogical information. 08/11/2020 15:2 3 EST 08/11/2020 19:41 EST Provider Unknown MICROBIOLOGY - GENER AL ORDERABLES Performing Organization Address City/State/[facility] Co de Phone Number [facility] [address] [place] [address] documented in this encounter Visit Diagnoses Not on filedocumented in this encounter Care Teams Concrete Boom Operator Relationship Specialty Start Date End Date None, Provider PCP - General 10/02/15 documented as of this encounter
--- OUTSIDE RECORDS SUMMARY | 2024-06-30 00:40 | XMS_ITS | Encounter Summary ---
Author Organization [facility] Address [address] [place] [address] Care Team Providers Care Integrity Assessor Name Role Phone None, Provider Primary Care Provider Unavailabl e Encounter Details Date Type Department Care Team (Late st Contact Info) Description 08/22/2020 Lab Requisition [facility] Pathology & Laboratory Medicine - [facility] [address] [place] [address] Outr Resulting Lab, Provider Social History Tobacco [...] in accordance with CLIA regulations, College of [place] Pathologists (CAP) guidelines (Dec 07, 2019), and FDA guidance (Nov 18, 2019). This test is only for use under the Food and Drug Administration's Emergency Use Authorization. Swab ENTIRE NASOPHARYNX / Unknown 08/22/2020 7:29 EST 08/22/2020 22:22 EST Provider Outr Resulting Lab MICROBIOLOGY - GENERAL ORDERABLES [facility] [place], [place] * COVID-19 TESTING (08/22/2020 7:29 EST) COVID-19 rt-PCR Result NEGATIVE Negative 08/24/2020 9:50 EST [facility] Comment: 2019-novel Coronavirus (2019-nCoV) not [...] in accordance with CLIA regulations, College of [place] Pathologists (CAP) guidelines (Dec 07, 2019), and FDA guidance (Nov 18, 2019). This test is only for use under the Food and Drug Administration's Emergency Use Authorization. Performing Lab [facility] [place] 08/24/2020 9:50 EST [facility] Swab 08/22/2020 7:29 EST 08/22/2020 22:22 EST Provider Outr Resulting Lab MICROBIOLOGY - GENERAL ORDERABLES [facility] [address] [place] [address] [facility] [place], [place] documented in this encounter Visit Diagnoses Not on filedocumented in this encounter Care Teams Integrity Assessor Relationship Specialty Start Date End Date None, Provider PCP - General 10/02/15 documented as of this encounter
--- OUTSIDE RECORDS SUMMARY | 2024-06-30 00:40 | XMS_ITS | Encounter Summary ---
Author Organization [facility] Address [address] [place] [address] Care Team Providers Care Airport Ramp Attendant Name Role Phone Md RAVI Palafox Primary Care Provider Steve isaac Encounter Details Date Type Department Care Team (Late st Contact Info) Description 11/10/2010 Results Only [facility] Laboratory Services - [facility] [address] [place], [place] [phone] Joel Silvestre MD [address] [place] [phone] Social History Tobacco Use Types Packs/Day Years [...] ? HAYWARD, LIBERTY ? Accession #: ? [id number] ? : ? 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 Gross Description: ? Received in formalin labelled HaywardLori and left tonsil is a 4.4 x 2.2 x 2.2 cm nodular tissue grossly consistent with a markedly enlarged palatine tonsil. ??The specimen is partially surfaced by a pink-klein, smooth and cryptic ?? mucosa, and sectioning reveals a pink-klein, homogeneous cut surface without ? masses or discrete lesions. ??A single special service representative section is submitted in ? [...] and without grossly discernible ? abnormalities. ??A special service representative section of tonsil and a special service representative section of probable adenoid tissue fragments are submitted in (B). ? Received in formalin labelled [place]ward, [place] and uvula papilloma mass is a ?? [...] MD PATHOLOGY ORDERABLES [facility] [address] [place] [address] documented in this encounter Visit Diagnoses Not on filedocumented in this encounter Care Teams Airport Ramp Attendant Relationship Specialty Start Date End Date Md Palafox MD PCP - General 06/02/10 04/25/12 documented as of this encounter
--- OUTSIDE RECORDS SUMMARY | 2024-06-30 00:40 | XMS_ITS | Encounter Summary ---
Author Organization [facility] Address [address] [place] [address] Care Team Providers Care Sas Programmer Name Role Phone None, Provider Primary Care Provider Unavailabl e Encounter Details Date Type Department Care Team (Late st Contact Info) Description 09/09/2020 Lab Requisition [facility] Pathology & [place] [address] Outr Resulting Lab, Provider Social History Tobacco [...] Outr Resulting Lab MICROBIOLOGY - GENERAL ORDERABLES [facility] [address] [place] [address] * COVID-19 TESTING (09/09/2020 11:20 EST) COVID-19 rt-PCR Result Negative Negative 09/10/2020 21:45 EST [facility] Comment: Negative results do not preclude 2019-nCoV infection and should not be used as the sole basis for treatment or other patient management decisions. Negative results must be combined with clinical observations, patient history, and epidemiological information. This test was developed and its performance characteristics determined by [facility]. It has not been cleared or [...] defined by the FDA Performed on the AlgEvolveo 7 Flex. Performing Lab Quantstudio 7 [facility] 09/10/2020 21:45 EST [facility] Swab 09/09/2020 11:2 0 EST 09/09/2020 15:44 EST Provider Outr Resulting Lab MICROBIOLOGY - GENERAL ORDERABLES [facility] [address] [place] [address] documented in this encounter Visit Diagnoses Not on filedocumented in this encounter Care Teams Sas Programmer Relationship Specialty Start Date End Date None, Provider PCP - General 10/02/15 documented as of this encounter
--- OUTSIDE RECORDS SUMMARY | 2024-06-30 00:40 | XMS_ITS | Encounter Summary ---
Author Organization [facility] Address [address] [place] [address] Care Team Providers Care Practice Performance Manager Name Role Phone None, Provider Primary Care Provider Unavailabl e Encounter Details Date Type Department Care Team (Late st Contact Info) Description 05/05/[address] [facility] Pathology & Laboratory Medicine - [facility] [address] [place], [place] [phone] Outr Resulting Lab, Provider Social History Tobacco [...] Name Priority Date/Time Associated Diagnosis Comments HEPATITIS C AB W REFLEX TO HCV RNA BY PCR Routine 05/04/2024 11:40 EDT documented in this encounter Results * HEPATITIS C AB W REFLEX TO HCV RNA BY PCR (05/04/2024 11:40 EDT) Hep C Antibody Negative Negative 05/08/2024 13:24 EDT [facility] Blood VENOUS BLOOD / Unknown 05/04/2024 11:40 EDT 05/05/2024 19:31 EDT Provider Outr Resulting Lab CHEMISTRY & BLOOD GAS ORDERABLES [facility] [address] [place], [place] [phone] documented in this encounter Visit Diagnoses Not on filedocumented in this encounter Care Teams Practice Performance Manager Relationship Specialty Start Date End Date None, Provider PCP - General 10/02/15 documented as of this encounter
--- OUTSIDE RECORDS SUMMARY | 2024-06-30 00:40 | XMS_ITS | Encounter Summary ---
Author Organization [facility] Address [address] [place] [address] Care Team Providers Care Personal Injury Specialist Name Role Phone None, Provider Primary Care Provider Unavailabl e Encounter Details Date Type Department Care Team (Late st Contact Info) Description 06/09/2021 Lab Requisition [facility] Pathology & Laboratory Medicine - [facility] [address] [place] [address] Outr Resulting Lab, Provider Social History Tobacco [...] 63.8 See Note mIU/mL 06/10/2021 9:25 EDT [facility] Comment: Reference Range for Hep B Surface Ab, Quant: Positive: >= 10.0 mIU/mL Negative: ??< 10.0 mIU/mL Patient is presumed to be immune to infection with Hepatitis B Virus. Hep B Surface Ab, Qualitative Positive See Note 06/10/2021 9:25 EDT [facility] Comment: Reference Range for Hep B Surface Ab, Qual: Unvaccinated: ??Negative Vaccinated: ??Positive Blood VENOUS BLOOD / Unknown 06/09/2021 15:27 EDT 06/09/2021 21:10 EDT Provider Outr Resulting Lab CHEMISTRY & BLOOD GAS ORDERABLES [facility] [address] [place] [address] documented in this encounter Visit Diagnoses Not on filedocumented in this encounter Care Teams Personal Injury Specialist Relationship Specialty Start Date End Date None, Provider PCP - General 10/02/15 documented as of this encounter
--- OUTSIDE RECORDS SUMMARY | 2024-06-30 00:40 | XMS_ITS | Continuity of Care Document ---
Author Organization [facility] Address [address] [place] [address] Care Team Providers Care Medical Technician Assistant Name Role Phone Cornelia Hernandez Primary Care Physician Encounter [facility] Date(s): 05/04/24 - 05/04/[address] [phone] Discharge Disposition: Home or Self Care Attending Physician: Cornelia Hernandez PA-C Admitting Physician: Cornelia Hernandez PA-C Referring Physician: Cornelia Hernandez PA-C Allergies, Adverse Reactions, Alerts Substance Reaction Severity Status KIWI Unknown Active lidocaine Unknown Active NSAIDs Unknown Active Assessment and Plan Diagnostic Tests Pending * QuantiFERON-TB Gold Plus, WB PACKER 05/04/24 Social History Social History Type Response Sex Female Patient Care team information Care Team Personnel Name: Cornelia Hernandez PA-C Position: PowerChart View Only Member Role: Primary Care Physician Address: Address: [address] [address]- [place]
--- OUTSIDE RECORDS SUMMARY | 2024-06-30 00:40 | XMS_ITS | Encounter Summary ---
Author Organization [facility] Address [address] [place] [address] Care Team Providers Care Professor Of Vegetable Science Name Role Phone None, Provider Primary Care Provider Unavailabl e Encounter Details Date Type Department Care Team (Late st Contact Info) Description 09/25/2020 Lab Requisition [facility] Pathology & Laboratory Medicine - [facility] [address] [place] [address] Outr Resulting Lab, Provider Social History Tobacco [...] in accordance with CLIA regulations, College of [place] Pathologists (CAP) guidelines (Dec 07, 2019), and FDA guidance (Nov 18, 2019). This test is only for use under the Food and Drug Administration's Emergency Use Authorization. Swab ENTIRE NASOPHARYNX / Unknown 09/25/2020 9:00 EST 09/25/2020 20:51 EST Provider Outr Resulting Lab MICROBIOLOGY - GENERAL ORDERABLES [facility] [place], [place] * COVID-19 TESTING (09/25/2020 9:00 EST) Pathologist [facility] [place] COVID-19 rt-PCR Result NEGATIVE Negative 09/27/2020 9:38 EST [facility] Comment: 2019-novel Coronavirus (2019-nCoV) not detected [...] in accordance with CLIA regulations, College of [employer] Pathologists (CAP) guidelines (Dec 07, 2019), and FDA guidance (Nov 18, 2019). This test is only for use under the Food and Drug Administration's Emergency Use Authorization. Performing Lab [facility] 09/27/2020 9:38 EST [facility] Swab 09/25/2020 9:00 EST 09/25/2020 20:51 EST Provider Outr Resulting Lab MICROBIOLOGY - GENERAL ORDERABLES [facility] [address] [place] [address] [facility] [place], [place] documented in this encounter Visit Diagnoses Not on filedocumented in this encounter Care Teams Professor Of Vegetable Science Relationship Specialty Start Date End Date None, Provider PCP - General 10/02/15 documented as of this encounter
--- OUTSIDE RECORDS SUMMARY | 2024-06-30 00:40 | XMS_ITS | Encounter Summary ---
Author Organization [facility] Address [address] [place] [address] Care Team Providers Care String Laster Name Role Phone Sky Jensen MD Primary Care Provider [phone] Encounter Details Date Type Department Care Team (Late st Contact Info) Description 09/27/2015 Results Only [facility] [phone] Neftali Desai MD [address] [place] [address] Social History Tobacco Use Types Packs/Day Years [...] ? LESLEY HAYWARD ? Accession #: ? [id number] ? : ? 1990 (Age: 25) ??F [...] is black inked for orientation purposes. Two advertising representative cross sections and one longitudinally bisected fimbriated end of each fallopian tube are submitted in [address] Amador 10/01/2015 4:37 PM End of Report [facility] 09/27/2015 21:4 3 EST 09/30/2015 21:43 EST Neftali Desai MD PATHOLOGY ORDERABLES Performing Organization Address City/State/[facility] Co de Phone Number [facility] [address] [place] [address] documented in this encounter Visit Diagnoses Not on filedocumented in this encounter Care Teams String Laster Relationship Specialty Start Date End Date Sky Jensen MD [address] [place] [address] PCP - General 11/12/14 10/01/15 documented as of this encounter
--- OUTSIDE RECORDS SUMMARY | 2024-06-30 00:40 | XMS_ITS | Clinical Summary ---
Author Organization Formerly [facility], [facility] Address [facility] [place] [address] Care Team Providers Care Drill Instructor Name Role Phone Sky Jensen MD Primary [...] Immunizations Name Administration Dates Next Due Tdap (Adacel, Boostrix) 09/29/2012 Family History Medical History Relation Comments [...] 2011 HPV test 2022 PAP Smear 2022 Tetanus/Diphtheria/Pertussis Vaccines (2 - Td or Tdap) 09/29/2022 09/29/2012 Covid-19 Vaccine (1 - 2022- season) 2024 Influenza (Flu) vaccine (1 o f 1 - Influenza standard series) 05/21/2024 Care Teams Drill Instructor Relationship Specialty Start Date End Date Sky Jensen MD [address] [place] [address] PCP - General General Internal Medicine 06/04/23
--- OUTSIDE RECORDS SUMMARY | 2024-06-30 00:40 | XMS_ITS | Encounter Summary ---
Author Organization [facility] Address [address] [place] [address] Care Team Providers Care Insurance Healthcare Representative Name Role Phone None, Provider Primary Care Provider Unavailabl e Encounter Details Date Type Department Care Team (Late st Contact Info) Description 08/28/2020 Results Only [facility] Lab - Main [address] [id number] Unknown, Provider, Social History Tobacco Use Types [...] (08/28/2020 13:37 EST) Performing Lab AB 7500 [facility] LAb 08/30/2020 15:38 [facility] Comment: Please indicate the Triage Tier2 Test performed or referred by The [address] [address] COVID-19 rt-PCR Result Not Detected Negative 08/30/2020 15:38 [facility] Comment: Negative results do not preclude 2019-nCoV infection and should not be used as the sole basis for treatment or other patient management decisions. Negative results must be combined with clinical observations, patient history, and epidemiological information. This test was developed and its performance characteristics determined by [facility]. It [...] defined by the FDA Performed on the Dynasil Flex. 08/28/2020 13:3 7 EST 08/28/2020 19:25 EST Provider Unknown MICROBIOLOGY - GENER AL ORDERABLES Performing Organization Address City/State/[facility] Co de Phone Number [facility] [address] [place] [address] documented in this encounter Visit Diagnoses Not on filedocumented in this encounter Care Teams Insurance Healthcare Representative Relationship Specialty Start Date End Date None, Provider PCP - General 10/02/15 documented as of this encounter
--- OUTSIDE RECORDS SUMMARY | 2024-06-30 00:40 | XMS_ITS | Encounter Summary ---
Author Organization [facility] Address [address] [place] [address] Care Team Providers Care Coat Room Attendant Name Role Phone Dony Vu APRN Primary Care Provider Encounter Details Date Type Department Care Team (Latest Contact Info) Description 11/09/2014 15:02 EST - 11/09/2014 23:59 EST Hospital Encounter [address] [address] Unknown, Provider, Discharge Disposition: Home or Self Care Social History Tobacco Use Types Packs/Day Years Used Date Smoking Tobacco: Never Assessed Sex and Gender Information Value Date Recorded Sex Assigned at Not on file Gender Identity Not on file Sexual Orientation Not on file documented as of this encounter Discharge Disposition Disposition Code Departure Means Destination Home or Self Penitentiary documented in this encounter Plan of Treatment Not on file documented as of this encounter Visit Diagnoses Not on filedocumented in this encounter Care Teams Coat Room Attendant Relationship Specialty Start Date End Date Dony Vu APRN [address] [place] [address] PCP - General 04/26/12 11/11/14 documented as of this encounter
--- OUTSIDE RECORDS SUMMARY | 2024-06-30 00:40 | XMS_ITS | Encounter Summary ---
Author Organization [facility] Address [address] [place] [address] Care Team Providers Care Automotive Electrician Name Role Phone None, Provider Primary Care Provider Unavailabl e Encounter Details Date Type Department Care Team (Late st Contact Info) Description 09/09/2020 Results Only [facility] Lab - Main [address] [id number] Unknown, Provider, Social History Tobacco Use Types [...] (09/09/2020 11:20 EST) Performing Lab AB 7500 [facility] LAb 09/11/2020 7:53 EST [facility] Comment: RESULT: Quantstudio 7 [facility] Please indicate the Triage Tier2 Test performed or referred by The [address] [address] COVID-19 rt-PCR Result Not Detected Negative 09/11/2020 7:53 EST [facility] Comment: Negative results do not preclude 2019-nCoV infection and should not be used as the sole basis for treatment or other patient management decisions. Negative results must be combined with clinical observations, patient history, and epidemiological information. This test was developed and its performance characteristics determined by [facility]. It has not been cleared or [...] defined by the FDA Performed on the Jianshu Flex. 09/09/2020 11:2 0 EST 09/09/2020 11:20 EST Provider Unknown MICROBIOLOGY - KAY AL ORDERABLES [facility] [address] [place] [address] documented in this encounter Visit Diagnoses Not on filedocumented in this encounter Care Teams Automotive Electrician Relationship Specialty Start Date End Date None, Provider PCP - General 10/02/15 documented as of this encounter
--- OUTSIDE RECORDS SUMMARY | 2024-06-30 00:40 | XMS_ITS | Referral Summary ---
Author Organization [facility] Address [address] [place] [address] Care Team Providers Care Retail Loss Prevention Officer Name Role Phone None, Provider Primary Care Provider Unavailabl e Encounters Date Type Department Care Team Description 05/05/2024 Lab Requisition [facility] Pathology & Laboratory [facility] [address] [place] [address] Outr Resulting Lab, Provider 05/05/2024 Lab Requisition [facility] Pathology & Laboratory [facility] [address] [place] [address] Outr Resulting Lab, Provider from Last 3 Months Social History Tobacco Use Types Packs/Day Years Used Date Smoking Tobacco: Never Assessed Interpersonal Safety Answer Date Record ed Physically Hurt Never 07/14/2020 Verbally Threaten Not on file 07/14/2020 Sex and Gender Information Value Date Recorded Sex Assigned at Not on file Gender Identity Not on file Sexual Orientation Not on file Plan of Treatment Not on file Procedures Procedure Name Priority Date/Time Associated Diagnosis Comments HIV 1/2 ANTIGEN AND ANTIBODY, 4TH GENERATION Routine 05/04/2024 11:40 EDT HEPATITIS C AB W REFLEX TO HCV RNA BY PCR Routine 05/04/2024 11:40 EDT from Last 3 Months Results * HEPATITIS C AB W REFLEX TO HCV RNA BY PCR (05/04/2024 11:40 EDT) Hep C Antibody Negative Negative 05/08/2024 13:[address] [facility] Blood VENOUS BLOOD / Unknown 05/04/2024 11:40 EDT 05/05/2024 19:31 EDT Provider Outr Resulting Lab CHEMISTRY & BLOOD GAS ORDERABLES Performing Organization Address [facility]/ZIP Co de Phone Number [facility] [address] [place], [place] [phone] * HIV 1/2 ANTIGEN AND ANTIBODY, 4TH GENERATION (05/04/2024 11:40 EDT) HIV 1 and 2 Antibody/p24 Antigen, 4th Generation Negative Negative 05/07/2024 12:[address] [facility] Comment:If acute HIV-1 infec tion is suspected in a high risk patient, submit plasma specimen for HIV-1 RNA quantitation test. Blood VENOUS BLOOD / Unknown 05/04/2024 11:40 EDT 05/05/2024 19:[address] [facility] - 05/07/2024 12:42 EDT Fourth Generation assay performed on the Siemens Thotzaur XPT. Provider Outr Resulting Lab IMMUNOLOGY A ND SEROLOGY ORDERABLES [facility] [address] [place] [address] from Last 3 Months Care Teams Retail Loss Prevention Officer Relationship Specialty Start Date End Date None, Provider PCP - General 10/02/15
--- OUTSIDE RECORDS SUMMARY | 2024-06-30 00:40 | XMS_ITS | Encounter Summary ---
Author Organization [facility] Address [address] [place] [address] Care Team Providers Care Panel Sewer Name Role Phone None, Provider Primary Care Provider Unavailabl e Encounter Details Date Type Department Care Team (Late st Contact Info) Description 09/16/2020 Results Only [facility] Lab - Main [address] [id number] Unknown, Provider, Social History Tobacco Use Types [...] (09/16/2020 6:25 EST) Performing Lab AB 7500 [facility] LAb 09/17/2020 15:58 EST [facility] Comment: RESULT: Quantstudio 7 [facility] Please indicate the Triage Tier2 Test performed or referred by The [address] [address] COVID-19 rt-PCR Result Not Detected Negative 09/17/2020 15:58 EST [facility] Comment: Negative results do not preclude 2019-nCoV infection and should not be used as the sole basis for treatment or other patient management decisions. Negative results must be combined with clinical observations, patient history, and epidemiological information. This test was developed and its performance characteristics determined by [facility]. It has not been cleared [...] defined by the FDA Performed on the 51hejia.com Flex. 09/16/2020 6:25 EST 09/16/2020 13:21 EST Provider Unknown MICROBIOLOGY - KAY AL ORDERABLES Performing Organization Address City/State/[facility] Co de Phone Number [facility] [address] [place] [address] documented in this encounter Visit Diagnoses Not on filedocumented in this encounter Care Teams Panel Sewer Relationship Specialty Start Date End Date None, Provider PCP - General 10/02/15 documented as of this encounter
--- OUTSIDE RECORDS SUMMARY | 2024-06-30 00:40 | XMS_ITS | Encounter Summary ---
Author Organization [facility] Address [address] [place] [address] Care Team Providers Care Equipment Maintenance Engineer Name Role Phone None, Provider Primary Care Provider Unavailabl e Encounter Details Date Type Department Care Team (Late st Contact Info) Description 09/16/2020 Lab Requisition [facility] Pathology & Laboratory Medicine - [address] [address] Outr Resulting Lab, Provider Social History Tobacco [...] Outr Resulting Lab MICROBIOLOGY - GENERAL ORDERABLES [facility] [address] [place] [address] * COVID-19 TESTING (09/16/2020 6:25 EST) COVID-19 rt-PCR Result Negative Negative 09/17/2020 15:21 EST [facility] Comment: Negative results do not preclude 2019-nCoV infection and should not be used as the sole basis for treatment or other patient management decisions. Negative results must be combined with clinical observations, patient history, and epidemiological information. This test was developed and its performance characteristics determined by [facility]. It has not been cleared or approved [...] defined by the FDA Performed on the SCLo 7 Flex. Performing Lab Quantstudio 7 [facility] 09/17/2020 15:21 EST [facility] Swab 09/16/2020 6:25 EST 09/16/2020 16:51 EST Provider Outr Resulting Lab MICROBIOLOGY - GENERAL ORDERABLES [facility] [address] [place] [address] documented in this encounter Visit Diagnoses Not on filedocumented in this encounter Care Teams Equipment Maintenance Engineer Relationship Specialty Start Date End Date None, Provider PCP - General 10/02/15 documented as of this encounter
--- OUTSIDE RECORDS SUMMARY | 2024-06-30 00:40 | XMS_ITS | Encounter Summary ---
Author Organization [facility] Address [address] [place] [address] Care Team Providers Care Scoreboard Operator Name Role Phone None, Provider Primary Care Provider Unavailabl e Encounter Details Date Type Department Care Team (Late st Contact Info) Description 08/28/2020 Lab Requisition [facility] Pathology & Laboratory Medicine - [address] [address] Outr Resulting Lab, Provider Social History Tobacco [...] Outr Resulting Lab MICROBIOLOGY - GENERAL ORDERABLES [facility] [address] [place] [address] * COVID-19 TESTING (08/28/2020 13:37 EST) COVID-19 rt-PCR Result Negative Negative 08/30/2020 15:14 EST [facility] Comment: Negative results do not preclude 2019-nCoV infection and should not be used as the sole basis for treatment or other patient management decisions. Negative results must be combined with clinical observations, patient history, and epidemiological information. This test was developed and its performance characteristics determined by [facility]. It has not been cleared or approved [...] defined by the FDA Performed on the Lionseek 7 Flex. Performing Lab [facility] 08/30/2020 15:14 EST [facility] Swab 08/28/2020 13:3 7 EST 08/29/2020 8:37 EST Provider Outr Resulting Lab MICROBIOLOGY - GENERAL ORDERABLES [facility] [address] [place] [address] documented in this encounter Visit Diagnoses Not on filedocumented in this encounter Care Teams Scoreboard Operator Relationship Specialty Start Date End Date None, Provider PCP - General 10/02/15 documented as of this encounter
--- OUTSIDE RECORDS SUMMARY | 2024-06-30 00:40 | XMS_ITS | Encounter Summary ---
Author Organization [facility] Address [address] [place] [address] Care Team Providers Care Bird Trapper Name Role Phone None, Provider Primary Care Provider Unavailabl e Encounter Details Date Type Department Care Team (Late st Contact Info) Description 05/11/2023 Lab Requisition [facility] Pathology & Laboratory Medicine - [facility] [address] [place] [address] Outr Resulting Lab, Provider Social History Tobacco [...] IGA <1.2 <4.0 U/mL 05/13/2023 12:50 EDT [facility] Comment: A negative result may be due to IgA deficiency and does not rule out celiac disease. ? Negative: ??<4.0 U/mL ? Weak Positive: ??4.0 - 10.0 U/mL ? Positive: ??>10.0 U/mL Results were obtained with the CohealoA Lite R h-tTG IgA BRANDO assay on the [employer] DSX. IgA 123 85 - 499 mg/dL 05/13/2023 12:50 EDT [facility] Celiac Disease Interpretation Negative Serology. Celiac disease unlikely. Approximately 10% of patients with celiac disease are seronegative. Patients who are already adhering to a gluten-free diet may also be seronegative. If celiac disease is highly clinically suspected, referral to gastroenterology for additional evaluation is recommended. 05/13/2023 12:50 EDT [facility] Blood VENOUS BLOOD / Unknown 05/10/2023 15:58 EDT 05/11/2023 16:51 EDT Provider Outr Resulting Lab IMMUNOLOGY A ND SEROLOGY ORDERABLES [facility] [address] [place] [address] documented in this encounter Visit Diagnoses Not on filedocumented in this encounter Care Teams Bird Trapper Relationship Specialty Start Date End Date None, Provider PCP - General 10/02/15 documented as of this encounter
--- OUTSIDE RECORDS SUMMARY | 2024-06-30 00:40 | XMS_ITS | Encounter Summary ---
Author Organization [facility] Address [address] [place] [address] Care Team Providers Care Interventional Radiology Technologist Name Role Phone None, Provider Primary Care Provider Unavailabl e Encounter Details Date Type Department Care Team (Late st Contact Info) Description 09/03/2021 Lab Requisition [facility] Pathology & Laboratory Medicine - [facility] [address] [place] [address] Sandie Panda, DO [address] [place], [place] [id number] Encounter for other general examination Social History [...] management options, if applicable. 09/08/2021 10:42 EST [facility] Final Diagnosis A. GALLBLADDER, CHOLECYSTECTOMY: - Chronic cholecystitis. 09/08/2021 10:42 EST [facility] Attestation There was significant resident/fellow involvement in the diagnostic evaluation of this case. By the signature below, the attending physician certifies that they have personally conducted a gross and/or microscopic examination of the described specimens and rendered or confirmed the above diagnosis. 09/08/2021 10:42 [facility] at 1042 Clinical History Biliary dyskinesia 09/08/2021 10:42 [facility] Gross Description A. [...] bile and is absent of gallstones. Two hospital sales representative sections and the en face cystic duct margin are submitted in A1. GALI AGUILERA(ASC) 09/03/2021 13:50 09/08/2021 10:42 [facility] Resident/Hansel w: Jasson Garcia MD 09/08/2021 10:42 [facility] Performing Lab [facility] 09/08/2021 10:42 [facility] Scanned Images 09/08/2021 10:42 [facility] Tissue ENTIRE GALLBLADDER / Unknown 09/02/2021 15:11 EST 09/03/2021 8:37 EST Sandie Panda DO PATHOLOGY ORDERABLES [facility] [address] [place] [address] documented in this encounter Visit Diagnoses Diagnosis Encounter for other general examination documented in this encounter Care Teams Interventional Radiology Technologist Relationship Specialty Start Date End Date None, Provider PCP - General 10/02/15 documented as of this encounter
--- OUTSIDE RECORDS SUMMARY | 2024-06-30 00:40 | XMS_ITS | Encounter Summary ---
Author Organization [facility] Address [address] [place] [address] Care Team Providers Care Straddle Carrier Operator Name Role Phone None, Provider Primary Care Provider Unavailabl e Encounter Details Date Type Department Care Team (Late st Contact Info) Description 09/04/2020 Lab Requisition [facility] Pathology & Laboratory Medicine - [address] [address] Outr Resulting Lab, Provider Social History Tobacco [...] Outr Resulting Lab MICROBIOLOGY - GENERAL ORDERABLES [facility] [address] [place] [address] * COVID-19 TESTING (09/04/2020 7:15 EST) COVID-19 rt-PCR Result Negative Negative 09/05/2020 18:08 EST [facility] Comment: Negative results do not preclude 2019-nCoV infection and should not be used as the sole basis for treatment or other patient management decisions. Negative results must be combined with clinical observations, patient history, and epidemiological information. This test was developed and its performance characteristics determined by [facility]. It has not been cleared or approved [...] defined by the FDA Performed on the Certify Data Systemso 7 Flex. Performing Lab Quantstudio 7 [facility] 09/05/2020 18:08 EST [facility] Swab 09/04/2020 7:15 EST 09/04/2020 16:56 EST Provider Outr Resulting Lab MICROBIOLOGY - GENERAL ORDERABLES [facility] [address] [place] [address] documented in this encounter Visit Diagnoses Not on filedocumented in this encounter Care Teams Straddle Carrier Operator Relationship Specialty Start Date End Date None, Provider PCP - General 10/02/15 documented as of this encounter
--- OUTSIDE RECORDS SUMMARY | 2024-06-30 00:40 | XMS_ITS | Encounter Summary ---
Author Organization [facility] Address [address] [place] [address] Care Team Providers Care Newsstand Vendor Name Role Phone None, Provider Primary Care Provider Unavailabl e Encounter Details Date Type Department Care Team (Late st Contact Info) Description 01/07/2024 Lab Requisition [facility] Pathology & Laboratory Medicine - [facility] [address] [place] [address] Outr Resulting Lab, Provider Social History Tobacco [...] 5 See Note ug/dL 01/07/2024 18:05 EDT [facility] Comment: NOTE: Reference Ranges (from OCD IFU): Collected Before 10:00 AM: ??4 - 23 ug/dL Collected After 5:00 PM: ?2 - 14 ug/dL The results of this assay can be falsely elevated due to the consumption of Biotin. Blood VENOUS BLOOD / Unknown 01/07/2024 8:00 EDT 01/07/2024 17:20 EDT Provider Outr Resulting Lab CHEMISTRY & BLOOD GAS ORDERABLES [facility] [address] [place] [address] documented in this encounter Visit Diagnoses Not on filedocumented in this encounter Care Teams Newsstand Vendor Relationship Specialty Start Date End Date None, Provider PCP - General 10/02/15 documented as of this encounter
--- OUTSIDE RECORDS SUMMARY | 2024-06-30 00:40 | XMS_ITS | Encounter Summary ---
Author Organization [facility] Address [address] [place] [address] Care Team Providers Care Manager Rfid Name Role Phone None, Provider Primary Care Provider Unavailabl e Encounter Details Date Type Department Care Team (Late st Contact Info) Description 09/01/2021 Lab Requisition [facility] Pathology & Laboratory Medicine - [facility] [address] [place], [place] [phone] Outr Resulting Lab, Provider Social History Tobacco [...] Lyme Ab Negative Negative 09/02/2021 10:35 EST [facility] Blood VENOUS BLOOD / Unknown 08/31/2021 10:55 EST 09/01/2021 16:31 EST Provider Outr Resulting Lab IMMUNOLOGY A ND SEROLOGY ORDERABLES [facility] [address] [place] [address] documented in this encounter Visit Diagnoses Not on filedocumented in this encounter Care Teams Manager Rfid Relationship Specialty Start Date End Date None, Provider PCP - General 10/02/15 documented as of this encounter
--- OUTSIDE RECORDS SUMMARY | 2024-06-30 00:40 | XMS_ITS | Encounter Summary ---
Author Organization [facility] Address [address] [place] [address] Care Team Providers Care Bank Reconciliator Name Role Phone None, Provider Primary Care Provider Unavailabl e Encounter Details Date Type Department Care Team (Late st Contact Info) Description 06/17/2021 Lab Requisition [facility] Pathology & Laboratory Medicine - [facility] [address] [place], [place] [phone] Outr Resulting Lab, Provider Social History Tobacco [...] Resulting Lab MICROBIOLOGY - GENERAL ORDERABLES [facility] [address] [place] [address] * COVID-19 TESTING (06/16/2021 9:00 EDT) COVID-19 rt-PCR Result Negative Negative 06/18/2021 15:[address] [facility] Comment: This test has [...] test is based on the [facility] COVID-19 Emergency Use Authorization (EUA) assay, with minor modification as defined by the FDA Performed on the Applied InstrumentLifeo 7 Flex RT-PCR System. Performing Lab [facility] 06/18/2021 15:[address] [facility] Swab 06/16/2021 9:00 EDT 06/17/2021 16:53 EDT Provider Outr Resulting Lab MICROBIOLOGY - GENERAL ORDERABLES [facility] [address] [place] [address] documented in this encounter Visit Diagnoses Not on filedocumented in this encounter Care Teams Bank Reconciliator Relationship Specialty Start Date End Date None, Provider PCP - General 10/02/15 documented as of this encounter
--- OUTSIDE RECORDS SUMMARY | 2024-06-30 00:40 | XMS_ITS | Encounter Summary ---
Author Organization [facility] Address [address] [place] [address] Care Team Providers Care Solutions Specialist Name Role Phone None, Provider Primary Care Provider Unavailabl e Encounter Details Date Type Department Care Team (Late st Contact Info) Description 09/04/2020 Results Only [facility] - Main [address] [id number] Unknown, Provider, Social History Tobacco Use Types [...] (09/04/2020 7:15 EST) Performing Lab AB [address] [facility] LAb 09/05/2020 19:12 EST [facility] Comment: RESULT: [employer] 7 [facility] Please indicate the Triage TierT2 Test performed or referred by The [address] [address] COVID-19 rt-PCR Result Not Detected Negative 09/05/2020 19:12 EST [facility] Comment: Negative results do not preclude 2019-nCoV infection and should not be used as the sole basis for treatment or other patient management decisions. Negative results must be combined with clinical observations, patient history, and epidemiological information. This test was developed and its performance characteristics determined by [facility]. It has not been cleared [...] defined by the FDA Performed on the [employer] Flex. 09/04/2020 7:15 EST 09/04/2020 11:57 EST Provider Unknown MICROBIOLOGY - KAY AL ORDERABLES Performing Organization Address City/State/[facility] Co de Phone Number [facility] [address] [phone] documented in this encounter Visit Diagnoses Not on filedocumented in this encounter Care Teams Solutions Specialist Relationship Specialty Start Date End Date None, Provider PCP - General 10/02/15 documented as of this encounter
--- OUTSIDE RECORDS SUMMARY | 2024-06-30 00:40 | XMS_ITS | Encounter Summary ---
Author Organization [facility] Address [address] [place] [address] Care Team Providers Care Etl Analyst Developer Name Role Phone Md RAVI Palafox Primary Care Provider Steve isaac Encounter Details Date Type Department Care Team (Late st Contact Info) Description 05/30/[address] [facility] Laboratory Services - [facility] ([facility] [address] [place], [place] [address] Kim Parnell, [facility] [address] [place] [address] [place] [address] Social History Tobacco Use Types [...] ? LESLEY HAYWARD ? Accession #: ? [id number] ? : ? 1990 (Age: 20) ??F ?Collect Date: ? 05/30/2010 ? Location: ? [facility] ? Receive Date: ? 06/02/2010 ? Provider: ?KIM RADHA BRANCH ADMINISTRATOR ? Copy to: ? Specimen/Source: ?Pap Test, [...] [facility] 05/30/2010 06/02/2010 Kim Parnell BRANCH ADMINISTRATOR PATHOLOGY ORDERABLES [facility] [address] [place] [address] documented in this encounter Visit Diagnoses Not on filedocumented in this encounter Care Teams Etl Analyst Developer Relationship Specialty Start Date End Date Md Palafox MD PCP - General 06/02/10 04/25/12 documented as of this encounter
--- OUTSIDE RECORDS SUMMARY | 2024-06-30 00:40 | XMS_ITS | Encounter Summary ---
Author Organization [facility] Address [address] [place] [address] Care Team Providers Care Snake Charmer Name Role Phone None, Provider Primary Care Provider Unavailabl e Encounter Details Date Type Department Care Team (Late st Contact Info) Description 05/13/2020 Lab Requisition [facility] Pathology & Laboratory Medicine - [facility] [address] [place] [address] Outr Resulting Lab, Provider Social History Tobacco [...] in accordance with CLIA regulations, College of [employer] Pathologists (CAP) guidelines (Dec 07, 2019), and FDA guidance (Nov 18, 2019). This test is only for use under the Food and Drug Administration's Emergency Use Authorization. Swab ENTIRE NASOPHARYNX / Unknown 05/13/2020 13:03 EDT 05/13/2020 22:22 EDT Provider Outr Resulting Lab MICROBIOLOGY - GENERAL ORDERABLES [place], [place] * COVID-19 TESTING (05/13/2020 13:03 EDT) [facility] COVID-19 rt-PCR Result NEGATIVE Negative 05/14/2020 14:22 EDT [facility] Comment: 2019-novel Coronavirus (2019-nCoV) [...] in accordance with CLIA regulations, College of [employer] Pathologists (CAP) guidelines (Dec 07, 2019), and FDA guidance (Nov 18, 2019). This test is only for use under the Food and Drug Administration's Emergency Use Authorization. Performing Lab [facility] 05/14/2020 14:[address] [facility] Swab 05/13/2020 13:0 3 EDT 05/13/2020 22:22 EDT Provider Outr Resulting Lab MICROBIOLOGY - GENERAL ORDERABLES [facility] [address] [place] [address] [facility] [place], [place] documented in this encounter Visit Diagnoses Not on filedocumented in this encounter Care Teams Snake Charmer Relationship Specialty Start Date End Date None, Provider PCP - General 10/02/15 documented as of this encounter
--- OUTSIDE RECORDS SUMMARY | 2024-06-30 00:40 | XMS_ITS | Clinical Summary ---
Author Organization [facility] Address [address] [place] [address] Care Team Providers Care Manager Icu Name Role Phone None, Provider Primary Care Provider Unavailabl e Encounters Date Type Department Care Team Description 05/05/2024 Lab Requisition [facility] Pathology & Laboratory [facility] [address] [place] [address] Outr Resulting Lab, Provider 05/05/2024 Lab Requisition [facility] Pathology & Laboratory [address] [address] Outr Resulting Lab, Provider from Last 3 [...] Due Date Last Done Comments Hepatitis B Vaccine (1 of 3 - 19+ 3-dose series) 03/13 COVID-19 Vaccine ( season) 2023 Hepatitis C Screen Completed 05/04/2024 Procedures Procedure Name Priority Date/Time Associated Diagnosis Comments HIV 1/2 ANTIGEN AND ANTIBODY, 4TH GENERATION Routine 05/04/2024 11:40 EDT HEPATITIS C AB W REFLEX TO HCV RNA BY PCR Routine 05/04/2024 11:40 EDT from Last 3 Months Results * HEPATITIS C AB W REFLEX TO HCV RNA BY PCR (05/04/2024 11:40 EDT) Hep C Antibody Negative Negative 05/08/2024 13:24 EDT [facility] Blood VENOUS BLOOD / Unknown 05/04/2024 11:40 EDT 05/05/2024 19:31 EDT Provider Outr Resulting Lab CHEMISTRY & BLOOD GAS ORDERABLES Performing Organization Address [facility]/ZIP Co de Phone Number [facility] [address] [place], [place] [address] * HIV 1/2 ANTIGEN AND ANTIBODY, 4TH GENERATION (05/04/2024 11:40 EDT) [facility] HIV 1 and 2 Antibody/p24 Antigen, 4th Generation Negative Negative 05/07/2024 12:42 EDT [facility] Comment:If acute HIV-1 infec tion is suspected in a high risk patient, submit plasma specimen for HIV-1 RNA quantitation test. Blood VENOUS BLOOD / Unknown 05/04/2024 11:40 EDT 05/05/2024 19:31 EDT Narrative [facility] - 05/07/2024 12:42 EDT Fourth Generation assay performed on the [employer] XPT. Provider Outr Resulting Lab IMMUNOLOGY A ND SEROLOGY ORDERABLES [facility] [address] [place] [address] from Last 3 Months Care Teams Manager Icu Relationship Specialty Start Date End Date None, Provider PCP - General 10/02/15
--- OUTSIDE RECORDS SUMMARY | 2024-06-30 00:40 | XMS_ITS | Encounter Summary ---
Author Organization [facility] Address [address] [place] [address] Care Team Providers Care Human Resources File Clerk Name Role Phone Md RAVI Palafox Primary Care Provider Steve isaac Encounter Details Date Type Department Care Team (Late st Contact Info) Description 08/28/2011 Results Only [facility] Laboratory Services - [facility] ([facility]) [address] [place], [place] [phone] Neftali Desai MD [address] [place] [address] Social History Tobacco Use Types Packs/Day Years [...] ? LESLEY HAYWARD ? Accession #: ? [id number] ? : ? 1990 (Age: 21) ??F [...] areas which are light klein and spongy. ??Pediatric Physician Assistant sections are submitted as (A1) through (A3). ??(Dr. Birch)/[facility] End of Report [facility] 08/28/2011 08/28/2011 15: 50 EST Neftali Desai MD PATHOLOGY ORDERABLES [facility] [address] [place] [address] documented in this encounter Visit Diagnoses Not on filedocumented in this encounter Care Teams Human Resources File Clerk Relationship Specialty Start Date End Date Md Palafox MD PCP - General 06/02/10 04/25/12 documented as of this encounter
--- OUTSIDE RECORDS SUMMARY | 2024-06-30 00:40 | XMS_ITS | Encounter Summary ---
Author Organization [facility] Address [address] [place] [address] Care Team Providers Care Sewage Screen Operator Name Role Phone None, Provider Primary Care Provider Unavailabl e Encounter Details Date Type Department Care Team (Late st Contact Info) Description 01/08/2024 Lab Requisition [facility] Pathology & Laboratory Medicine - [facility] [address] [place] [address] Outr Resulting Lab, Provider Social History Tobacco [...] 6 See Note ug/dL 01/08/2024 22:28 EDT [facility] Comment: NOTE: Reference Ranges (from OCD IFU): Collected Before 10:00 AM: ??4 - 23 ug/dL Collected After 5:00 PM: ?2 - 14 ug/dL The results of this assay can be falsely elevated due to the consumption of Biotin. Blood VENOUS BLOOD / Unknown 01/07/2024 16:02 EDT 01/08/2024 21:39 EDT Provider Outr Resulting Lab CHEMISTRY & BLOOD GAS ORDERABLES [facility] [address] [place] [address] documented in this encounter Visit Diagnoses Not on filedocumented in this encounter Care Teams Sewage Screen Operator Relationship Specialty Start Date End Date None, Provider PCP - General 10/02/15 documented as of this encounter
--- OUTSIDE RECORDS SUMMARY | 2024-06-30 00:40 | XMS_ITS | Encounter Summary ---
Author Organization [facility] Address [address] [place] [address] Care Team Providers Care Critical Care Physician Name Role Phone None, Provider Primary Care Provider Unavailabl e Encounter Details Date Type Department Care Team (Late st Contact Info) Description 05/14/2023 Lab Requisition [facility] Pathology & Laboratory Medicine - [facility] [address] [place] [address] Sandie Panda, DO [address] [place] [address] Other gastritis without bleeding; Gastro-esophageal [...] explore management options, if applicable. 05/17/2023 15:29 [facility] Final Diagnosis A. JEJUNUM, PROXIMAL, [...] mucosa with mild reactive changes. 05/17/2023 15:29 [facility] Attestation By the signature below, the attending physician certifies that they have 1) personally conducted a gross and/or microscopic examination of the described specimen(s), and/or personally interpreted the results of laboratory testing of the described specimen(s), and 2) personally rendered or confirmed the above diagnosis. 05/17/2023 15:29 [facility] at 1529 Clinical History Abdominal pain, nausea, GERD 05/17/2023 15:29 [facility] Gross Description A. Received [...] D1. Addie Collins 05/17/2023 8:19 05/17/2023 15:29 [facility] Performing Lab [facility] 15:29 EDT [facility] Scanned Images 05/17/2023 15:29 EDT [facility] Tissue ESOPHAGEAL STRUCTURE / Unknown 05/14/2023 10:18 EDT 05/14/2023 17:54 EDT Tissue specimen (specimen) STOMACH STRUCTURE / Unknown 05/14/2023 10:18 EDT 05/14/2023 17:54 EDT Tissue specimen (specimen) ESOPHAGEAL STRUCTURE / Unknown 05/14/2023 10:18 EDT 05/14/2023 17:54 EDT Tissue specimen (specimen) ESOPHAGEAL STRUCTURE / Unknown 05/14/2023 10:18 EDT 05/14/2023 17:54 EDT Sandie Panda DO PATHOLOGY ORDERABLES [facility] [address] [place] [address] documented in this encounter Visit Diagnoses Diagnosis Other gastritis without bleeding Gastro-esophageal reflux disease without esophagitis Esophageal reflux Right upper quadrant pain Abdominal pain, right upper quadrant Epigastric pain Abdominal pain, epigastric documented in this encounter Care Teams Critical Care Physician Relationship Specialty Start Date End Date None, Provider PCP - General 10/02/15 documented as of this encounter
--- OUTSIDE RECORDS SUMMARY | 2024-06-30 00:40 | XMS_ITS | Encounter Summary ---
Author Organization [facility] Address [address] [place] [address] Care Team Providers Care Charge Machine Operator Name Role Phone Md RAVI Palafox Primary Care Provider Steve isaac Encounter Details Date Type Department Care Team (Late st Contact Info) Description 04/22/2012 Results Only [facility] [phone] Osman James, DO [address] [place] [...] ? LESLEY HAYWARD ? Accession #: ? [id number] ? : ? 1990 (Age: 22) ??F ? Collect Date: ? 04/22/2012 ? Location: ? [facility] ? Receive Date: ? 04/22/2012 ? Provider: OSMAN JAMES DO Copy to: JORGE LUIS BROWN SUB PLANT MANAGER ? Final Pathologic Diagnosis: ? Stomach, antrum, [...] Description: ? Received in formalin labelled O'Carloz, [place] and gastric antrum biopsies are three pink-klein, irregular soft tissues ranging from 0.2 x 0.2 x 0.1 cm to 0.5 x 0.3 x 0.1 cm, submitted in toto in a single cassette. ??(aFbiana Silva)/[facility] End of Report [facility] 04/22/2012 04/22/2012 22: 14 EDT Osman James DO PATHOLOGY ORDERABLES [facility] [address] [place] [address] documented in this encounter Visit Diagnoses Not on filedocumented in this encounter Care Teams Charge Machine Operator Relationship Specialty Start Date End Date Md Palafox MD PCP - General 06/02/10 04/25/12 documented as of this encounter
--- OUTSIDE RECORDS SUMMARY | 2024-06-30 00:41 | XMS_ITS | Encounter Summary ---
Author Organization [facility] [place] [address] Care Team Providers Care Rental Car Deliverer Name Role Phone Sky Jensen MD Primary Care Provider [phone] Encounter Details Date Type Department Care Team (Late st Contact Info) Description 01/21/2015 External [place] [address] Maldonado Elizondo MD [facility] [place] [address] Social History Tobacco Use Types Packs/Day Years [...] on filedocumented in this encounter Care Teams Rental Car Deliverer Relationship Specialty Start Date End Date Sky Jensen MD [address] [place] [address] PCP - General 12/03/14 07/22/20 documented as of this encounter
--- OUTSIDE RECORDS SUMMARY | 2024-06-30 00:41 | XMS_ITS | Encounter Summary ---
Author Organization [facility] Address [facility] [place] [address] Care Team Providers Care Shower Attendant Name Role Phone Sky Jensen MD Primary Care Provider [phone] Reason for Visit * Reason Onset Date Comments Dizziness 10/22/2015 Encounter Details Date Type Department Care Team (Late st Contact Info) Description 10/22/2015 Telephone Cardiology at [address] [place] [address] Iman Hamilton RN Dizziness Social History Tobacco [...] 10/22/2015 8:46 AM EST Received called from [facility] ED - patient evaluated there [...] her to have this test done at [facility], so I may review the strips. 3) Typically, we recommend that patients be evaluated for adrenal insufficiency (usually with cosyntropin stimulation testing) and pheochromocytoma (with serum or urine metanephrines). The patient already has an price clerk at [facility]. I encouraged the patient to follow up [...] Price MD Cardiac Electrophysiology Fellow Physician Pager [phone] Daytime She is taking meds as she [...] on filedocumented in this encounter Care Teams Shower Attendant Relationship Specialty Start Date End Date Sky Jensen MD [address] [place] [address] PCP - General 12/03/14 07/22/20 documented as of this encounter
--- OUTSIDE RECORDS SUMMARY | 2024-06-30 00:41 | XMS_ITS | Encounter Summary ---
Author Organization [facility] [place] [address] Care Team Providers Care Cruise Staff Member Name Role Phone Cornelia Hernandez Primary Care Provider [phone] Reason for Visit * Reason Comments Plantar Warts * Consultation (Routine) - Specialty Diagnoses / Procedures Referred By Rashmi salomon Referred To Contact Podiatry Diagnoses Plantar wart Rina Mccain, FITNESS MANAGEMENT DIRECTOR [address] [place] [address] [facility] [place] [address] Referral ID Status Reason Start Date Expiration Date V isits Requested Visits Authorized [id number] Consult, [facility] PCP Updated and/or Approved 07/05/2020 12/13/2020 6 6 Encounter Details Date Type Department Care Team (Late st Contact Info) Description 09/26/2020 2:30 PM EST [place] [address] Brook Michelle DPM [facility] [place] [address] Plantar wart; Pain in both feet; Metatarsalgia [...] the original note were not included. [employer] [place] [employer]oles Patient Education Plantar Warts: [...] doctor may recommend that you use an mfvq-qyp-wvrtiit treatment. These include salicylic acid or duct [...] patch. You can buy these at a [employer]. Put the pad around the plantar wart so that it relieves pressure on the wart. You also can place pads or cushions in your shoes to make walking more comfortable. ?? Take an vzun-pmj-pbcmmoi medicine, such as acetaminophen (Tylenol), ibuprofen (Advil, [...] Where can you learn more? Visit our [employer] information library at [email or web address]/Sonendo You can also view health information on [employer], your personal patient account. Log in or sign uptoday. Enter S429 in the search box to learn more about Plantar Warts: Care Instructions. Current as of: March 21, 2020?Content Version: 12.7 ?? [id number] [employer] ([employer] Care instructions adapted under license by [facility]. If you have questions about a medical condition or this instruction, always ask your healthcare professional. [employer] disclaims any warranty or liability for your use of this information. documented in this encounter Progress Notes * Brook Michelle DPM - 09/26/2020 2:30 PM EST Outpatient [facility] Note Name: Lori Cruz Age:30 y.o. MR#: [id number] Date of Service: 09/26/2020 SUBJECTIVE: Lori Cruz [...] file Gets together: Not on file Attends mosque service: Not on file Active member of [...] concerns or changes arise Brook Michelle DPM [employer] documented in this encounter Plan of Treatment Not on file documented as of this encounter Visit Diagnoses Diagnosis Plantar wart Pain in both feet Pain in limb Metatarsalgia of both feet Enthesopathy of ankle and tarsus, unspecified documented in this encounter Care Teams Cruise Staff Member Relationship Specialty Start Date End Date Cornelia Hernandez PA [address] [place] [address] PCP - General Family Medicine 07/23/20 06/03/23 documented as of this encounter
--- OUTSIDE RECORDS SUMMARY | 2024-06-30 00:41 | XMS_ITS | Encounter Summary ---
Author Organization [facility] [place] [address] Care Team Providers Care Wire Coating Machine Operator Name Role Phone Cornelia Hernandez Primary Care Provider Reason for Visit * Reason Comments Plantar Warts Encounter Details Date Type Department Care Team (Late st Contact Info) Description 11/07/2020 2:30 PM EST Office Visit Podiatry at [facility] [place] [address] Brook Michelle DPM [facility] [place] [address] Plantar wart; Left foot pain Social History [...] Note Name: Lori Cruz Age:30 y.o. MR#: [id number] Date of Service: 11/07/2020 SUBJECTIVE: Lori Cruz [...] concerns or changes arise Brook Michelle DPM Linux Security Administrator, [facility] documented in this encounter Plan of Treatment Not on file documented as of this encounter Visit Diagnoses Diagnosis Plantar wart Left foot pain Pain in limb documented in this encounter Care Teams Wire Coating Machine Operator Relationship Specialty Start Date End Date Cornelia Hernandez PA [address] [address] PCP - General Family Medicine 07/23/20 06/03/23 documented as of this encounter
--- OUTSIDE RECORDS SUMMARY | 2024-06-30 00:41 | XMS_ITS | Encounter Summary ---
Author Organization [facility] [place] [address] Care Team Providers Care Fur Sorter Name Role Phone Jh Guillaume MD Primary Care Provider [phone] Encounter Details Date Type Department Care Team (Latest Contact Info) Description 08/01/2012 10:58 AM EST - 08/01/2012 3:35 PM EST Hospital Encounter [place] [address] Avtar Zavala MD [facility] [place] [address] Discharge Disposition: Home Social History Tobacco Use [...] - 08/01/2012 12:59 PM EST Please call [phone], before 5pm with problems, questions or concerns, after 5pm call the Hospital at [phone] and ask to speak to the Certified Phlebotomist online marketing manager and the sludge filtration operator will contactthat person for you. Discharge [...] GI ENDOSCOPY: WHAT TO EXPECT AT HOME (ARABIC) documented in this encounter Medications at Time [...] For The Chronically Ill UPPER GI ENDOSCOPY [facility] Patient Name: Rankin Cruz ? Procedure Date: 08/01/2012 12:36 PM ? Date of : 1990 ? Age: 22 ? Order #: [id number] ? Procedure: ? Upper GI endoscopy Indications: ? Heartburn, For Gonzalez placement Providers: ? Avtar Zavala MD, Frances Lazaro, ? FRANKLIN, Yara Daley, Material Checker Referring MD: ?Dony Vu MD Medicines: ? [...] sedation) documented in this encounter Care Teams Fur Sorter Relationship Specialty Start Date End Date Jh Guillaume MD [address] [place] [address] [place] [address] PCP - General 08/01/12 09/28/12 documented as of this encounter
--- OUTSIDE RECORDS SUMMARY | 2024-06-30 00:41 | XMS_ITS | Encounter Summary ---
Author Organization [facility] [place] [address] Care Team Providers Care Head Cd Reactor Operator Name Role Phone Sky Jensen MD Primary Care Provider Encounter Details Date Type Department Care Team (Latest Contact Info) Description 05/23/2015 3:30 PM EDT - 05/23/2015 11:59 PM EDT Hospital Encounter Non-[place] [phone] CARDIO, ECHO SIXTY MIN APPT None Thang Isidro MD [facility] [place] [address] Syncope, unspecified Discharge Disposition: Home Social History [...] N ? (Age): 1990(25y) Med Rec#: ? [id number] ?Sex: ?F ? Site Loc: ? [facility] ?Ht / Wt: ??175.3(cm)/68(kg Pt. Loc: ?Echo Lab ?BSA: ?1.83 Study Date: ?? 05/23/2015 ?Pt. Type: Outpatient Tape: ? Referring: Thang Isidro Reading: Jasson Pascal ([id number]) State Tested Nursing Assistant: Ashlie Valdez Diagnosis: CPT Codes: *Echo Full (64101) *Spectral Doppler (84083) *Color Doppler (82559) Indication: ?? Syncope Rhythm: ? Sinus BP: [...] E-wave Vmax ?1.1 ?m/sec ? MV deceleration [id number] ?msec ? MV A-wave Vmax ?0.4 ?m/sec ? MV E:A ratio ?2.5 ?ratio ? LV E:e' septal ratio0.2 ?ratio ? Tricuspid Valve ?Value ?Units (Range) ? TR Vmax ? 2.1 ?m/sec ? TR peak gradient ?17.1 ? mmHg ? RAP ? 3 ?mmHg ? RVSP ?20 ? mmHg ? Pulmonic Valve/Qp:Qs ?Value ?Units (Range) ? SD end-diastolic Vma0.7 ?m/sec ? PA end-diastolic pre5 ?mmHg ? Measurement Trending Name ? 05/23/2015 ? LV EDV BP ?96.6411 LVIDd (2D) ? 4.82199023 LV ESV BP ?36.1077 LVIDs (2D) ? 2.9654157 LA ESV BP (A/L) ?44.5252 Wall Motion: Segment Name ?Rest ? Base-Anteroseptal ?? Normal ? Base-Anterior ? Normal ? Base-Anterolateral ??Normal ? Base-Posterolateral Normal ? Base-Inferior ? Normal ? Base-Inferoseptal ?? Normal ? Mid-Anteroseptal ?Normal ? Mid-Anterior ?Normal ? Mid-Anterolateral ?? Normal ? Mid-Posterolateral ??Normal ? Mid-Inferior ?Normal ? Mid-Inferoseptal ?Normal ? [address]-Septal ? Normal ? [address]-Anterior ? Normal ? [address]-Lateral ?Normal ? [address]-Inferior ? Normal ? [address]-Tip ?Normal ? This report has been electronically signed by: Jasson Pascal MD ? 05/23/2015 16:35:52 Images reviewed and interpretation verified [facility] Cardiac Ultrasound Laboratory Procedure Note Jasson Pascal MD - 05/23/2015 Procedure: Transthoracic Echocardiogram Patient: MAINOR DUENAS(Age): 1990(25y) Med Rec#: [id number] Sex: F Site Loc: [facility] Ht / Wt: 175.3(cm)/68(kg Pt. Loc: Echo Lab BSA: 1.83 Study Date: 05/23/2015 Pt. Type: Outpatient Tape: Referring: Thang Isidro Reading: Jasson Pascal ([id number]) State Tested Nursing Assistant: Ashlie Valdez Diagnosis: CPT Codes: *Echo Full (18794) *Spectral Doppler (55575) *Color Doppler (36825) Indication: Syncope Rhythm: Sinus BP: 112/71 SUMMARY: [...] MV E-wave Vmax 1.1 m/sec MV deceleration [id number] msec MV A-wave Vmax 0.4 m/sec MV E:A ratio 2.5 ratio LV E:e' septal ratio0.2 ratio Tricuspid Valve Value Units (Range) TR Vmax 2.1 m/sec TR peak gradient 17.1 mmHg RAP 3 mmHg RVSP 20 mmHg Pulmonic Valve/Qp:Qs Value Units (Range) SD end-diastolic Vma0.7 m/sec PA end-diastolic pre5 mmHg Measurement Trending Name 05/23/2015 LV EDV BP 96.6411 LVIDd (2D) 4.75882131 LV ESV BP 36.1077 LVIDs (2D) 2.4851073 LA ESV BP (A/L) 44.5252 Wall Motion: Segment Name Rest Base-Anteroseptal Normal Base-Anterior Normal Base-Anterolateral Normal Base-Posterolateral Normal Base-Inferior Normal Base-Inferoseptal Normal Mid-Anteroseptal Normal Mid-Anterior Normal Mid-Anterolateral Normal Mid-Posterolateral Normal Mid-Inferior Normal Mid-Inferoseptal Normal [address]-Septal Normal [address]-Anterior Normal [address]-Lateral Normal [address]-Inferior Normal [address]-Tip Normal This report has been electronically signed by: Jasson Pascal MD 05/23/2015 16:35:52 Images reviewed and interpretation verified [facility] Cardiac Ultrasound Laboratory Thang Isidro MD ECHO ORDERABLES documented in this encounter Visit Diagnoses Diagnosis Syncope, unspecified documented in this encounter Care Teams Head Cd Reactor Operator Relationship Specialty Start Date End Date Sky Jensen MD [address] [place] [address] PCP - General 12/03/14 07/22/20 documented as of this encounter
--- OUTSIDE RECORDS SUMMARY | 2024-06-30 00:41 | XMS_ITS | Encounter Summary ---
[place] [address] Care Team Providers Care Body Engineer Name Role Phone Dony Vu ROOFING APPRENTICE Primary Care Provide r Encounter Details Date Type Department Care Team (Latest Contact Info) Description 09/29/2012 9:00 AM EST Procedure visit [place] [address] CLINIC, Celeste Finley RN GERD (gastroesophageal reflux [...] DATE: 09/29/12 PROVIDER: Alfonso Rodarte, PhD, [place] ([id number]) INDICATION JENNA; preoperative evaluation. METHODS Stationary esophageal manometry was performed with the Mimoco esophageal motility system utilizing the Vend software with a 4-channel solid-state motility probe. [...] of the esophagus. Alfonso Rodarte, PhD, MD day spa manager, [facility] [employer] Section of Gastroenterology and Hepatology [facility] [place] [address] V: [phone] F: [phone] BEL/jose CC/EC: DO Jh Hu MD * [...] reflux documented in this encounter Care Teams Body Engineer Relationship Specialty Start Date End Date Dony Vu APRN [address] [place] [address] PCP - General 09/29/12 12/02/14 documented as of this encounter
--- OUTSIDE RECORDS SUMMARY | 2024-06-30 00:41 | XMS_ITS | Encounter Summary ---
Author Organization [facility] [place] [address] Care Team Providers Care Bed And Breakfast Operator Name Role Phone Sky Jensen MD Primary Care Provider Encounter Details Date Type Department Care Team (Latest Contact Info) Description 11/01/2015 7:37 AM EST - 11/01/2015 11:59 PM [facility] Hospital Encounter Non-Invasive Cardiology Lab Count Includes [facility] [address] Thang Isidro MD [facility] [place] [address] Vasovagal syncope Discharge Disposition: Home Social History [...] collapse documented in this encounter Care Teams Bed And Breakfast Operator Relationship Specialty Start Date End Date Sky Jensen MD [address] [place] [address] PCP - General 12/03/14 07/22/20 documented as of this encounter
--- OUTSIDE RECORDS SUMMARY | 2024-06-30 00:41 | XMS_ITS | Encounter Summary ---
Author Organization [facility] Address [facility] [place] [address] Care Team Providers Care Dock Or Pier Laborer Name Role Phone Sky Jensen MD Primary Care Provider [phone] Encounter Details Date Type Department Care Team (Late st Contact Info) Description 11/01/2015 Telephone Cardiology at [address] [address] Jonatan Price MD [facility] [place] [address] Social History Tobacco Use Types Packs/Day Years [...] Price MD Cardiac Electrophysiology Fellow Physician Pager [phone] Daytime documented in this encounter Plan of Treatment Not on file documented as of this encounter Visit Diagnoses Not on filedocumented in this encounter Care Teams Dock Or Pier Laborer Relationship Specialty Start Date End Date Sky Jensen MD [address] [place] [address] PCP - General 12/03/14 07/22/20 documented as of this encounter
--- OUTSIDE RECORDS SUMMARY | 2024-06-30 00:41 | XMS_ITS | Encounter Summary ---
Author Organization [facility] [place] [address] Care Team Providers Care Buckle Inspector Name Role Phone Dony Vu APRN Primary Care Provide r Reason for Visit * Reason Onset Date Comments Other 09/27/2012 Rescheduled Sol ent Encounter Details Date Type Department Care Team (Late st Contact Info) Description 09/27/2012 Telephone [place] [phone] Ana Jamison Other (Rescheduled Patient) Social History [...] on filedocumented in this encounter Care Teams Buckle Inspector Relationship Specialty Start Date End Date Dony Vu APRN [address] [place] [address] PCP - General 09/29/12 12/02/14 documented as of this encounter
--- OUTSIDE RECORDS SUMMARY | 2024-06-30 00:41 | XMS_ITS | Encounter Summary ---
Author Organization [facility] [place] [address] Care Team Providers Care Surgical Technologist Name Role Phone Sky Jensen MD Primary Care Provider [phone] Encounter Details Date Type Department Care Team (Late st Contact Info) Description 01/21/2015 External Results [place] [address] Maldonado Elizondo MD [facility] [place] [address] Hyperandrogenism Social History Tobacco Use Types Packs/Day [...] hyperfunction documented in this encounter Care Teams Surgical Technologist Relationship Specialty Start Date End Date Sky Jensen MD [address] [address] PCP - General 12/03/14 07/22/20 documented as of this encounter
--- OUTSIDE RECORDS SUMMARY | 2024-06-30 00:41 | XMS_ITS | Encounter Summary ---
Author Organization [facility] [place] [id number] Care Team Providers Care Dent Remover Name Role Phone Héctor Eid MD Primary Care Provider [phone] Encounter Details Date Type Department Care Team (Late st Contact Info) Description 08/05/2012 7:05 PM EST Office [place] [phone] Alfonso Rodarte MD [facility] [place] [address] GERD (gastroesophageal reflux disease) (Primary Dx) Discharge [...] Rodarte MD - 08/15/2012 7:47 PM EST IPXAA-NFGIY-ZMLR WIRELESS pH CAPSULE STUDY AFTER UPPER ENDOSCOPY Lori Cruz Female, 22 yrs, 1990 PCP: HÉCTOR EID STUDY DATES: 08/01/12 to 08/03/12 INTERPRETATION DATE: 08/14/12 PROVIDER: [place]fon[place] ([id number]) INDICATION Reflux symptoms. NOTE: This study was [...] 7.9% Percent of Supine Recording Time: 2.3% Hmnpo-Nmanr-Caeq (Total) Fraction of Time with pH Less Than 4%: 8.8% Calculated DeMeester Score (normal values are up to 14.72) Day One Calculated DeMeester Score: 34.7 Day Two Calculated DeMeester Score: 25 Pkfcl-Efpmf-Ibii DeMeester Score (Total): 29.9 Day One Symptoms Association Probability (SAP) for Heartburn: 100% Regurgitation: 100% Chest pain: 77% Other: 0% Day Two SAP for Heartburn: 95% Regurgitation: 100% Chest pain: 65% Other: 0% Zzpfz-Bvttw-Oped SAP for Heartburn: 99% Regurgitation: 100% Chest [...] 95% are positive. Alfonso Rodarte MD, PhD fisher hoop net, [facility] [employer] Section of Gastroenterology [place] [address] V: [phone] F: [phone] AMANUEL/jose EC/CC: PCP Maxi James DO [facility] [address] [place] [address] [place] [address] documented in this encounter Plan of Treatment Not on file documented as of this encounter Visit Diagnoses Diagnosis GERD (gastroesophageal reflux disease)- Primary Esophageal reflux documented in this encounter Care Teams Dent Remover Relationship Specialty Start Date End Date Héctor Eid MD [address] [address] PCP - General 08/01/12 09/28/12 documented as of this encounter
--- OUTSIDE RECORDS SUMMARY | 2024-06-30 00:41 | XMS_ITS | Encounter Summary ---
Author Organization [facility] [place] [address] Care Team Providers Care Director Of Perioperative Services Name Role Phone Sky Jensen MD Primary Care Provider [phone] Reason for Visit * Reason Comments Shoulder Pain Encounter Details Date Type Department Care Team (Late st Contact Info) Description 01/08/2016 9:13 AM EDT - 01/08/2016 11:49 AM EDT [place] [phone] Acute pain of right shoulder Discharge Disposition: [...] Care Everywhere. * SHOULDER STRETCHES : EXERCISES (ALBANIAN) documented in this encounter Medications at Time of Discharge Medication Sig Dispensed Refills Start Date End Date PROAIR HFA 90 mcg/actuation HFA Aerosol Inhaler as needed. 0 09/12/2014 07/29/2023 triamcinolone (KENALOG) 0.1 % Ointment 0 09/12/2014 07/29/2023 documented as of this encounter ED Notes * Lilia Mendoza, EGG CASER - 01/08/2016 1:34 PM EDT Images from [...] shoulder documented in this encounter Care Teams Director Of Perioperative Services Relationship Specialty Start Date End Date Sky Jensen MD [address] [address] PCP - General 12/03/14 07/22/20 documented as of this encounter
--- OUTSIDE RECORDS SUMMARY | 2024-06-30 00:41 | XMS_ITS | Encounter Summary ---
Author Organization [facility] [place] [address] Care Team Providers Care Winding Lathe Operator Name Role Phone Chacha Jensen MD Primary Care Provider Encounter Details Date Type Department Care Team (Late st Contact Info) Description 05/23/2015 3:00 PM EDT Office Visit Cardiology at [address] [place] [address] Thang Isidro MD [facility] [place] [address] Syncope, unspecified Discharge Disposition: Home Social History [...] Referring: Chacha Jensen MD [address] [place] [address] PCP: CHACHA JENSEN MD (General) History of [...] report. She apparently had an EEG at [facility], normal per her report. She has not [...] ENDOSCOPY performed by JOSE DANIEL MURO at [facility] ENDOSCOPY ??? Gastric fundoplication ??? Tubal [...] rhythm, 64 bpm. AV conduction normal normal (WI 132 ms, QRS 70 ms). No evidence of long QT or short QT interval, QTc 385 ms by Bazett formula. No Brugada pattern. Normal QRS axis. No signs of ischemia or infarction. No signs of chamber hypertrophy. No evidence of manifest conduction down an accessory pathway (AKA Doybe-Axrewkcfg-Uvsni syndrome). Echocardiogram, performed today, imaging reviewed: 1. [...] Price MD Cardiac Electrophysiology Fellow Physician Pager [phone] Daytime Addendum I have personally interviewed and [...] would be helpful Plan as above THANG IISDRO MD documented in this encounter Plan of Treatment Not on file documented as of this encounter Procedures Procedure Name Priority Date/Time Associated Diagnosis Comments EKG 12-LEAD Routine 05/23/2015 2:10 PM EDT Syncope, unspecified documented in this encounter Results * Echocardiogram Transthoracic(Leb) (05/23/2015 4:16 PM EDT) EF 63 [employer] SYSTEM Anatomical Region Laterality Modality Other 05/23/2015 Narrative 05/23/2015 4:36 PM EDT Procedure: ?Transthoracic Echocardiogram Patient: ?MAINOR LIBERTY N ? (Age): 1990(25y) Med Rec#: ? [id number] ?Sex: ?F ? Site Loc: ? [facility] ?Ht / Wt: ??175.3(cm)/68(kg Pt. Loc: ?Echo Lab ?BSA: ?1.83 Study Date: ?? 05/23/2015 ?Pt. Type: Outpatient Tape: ? Referring: Thang Isidro Reading: Jasson Pascal ([id number]) Hooker Machine Tender: Ashlie Valdez Diagnosis: CPT Codes: *Echo Full (48075) *Spectral Doppler (52154) *Color Doppler (74084) Indication: ?? Syncope Rhythm: ? Sinus BP: [...] E-wave Vmax ?1.1 ?m/sec ? MV deceleration [id number] ?msec ? MV A-wave Vmax ?0.4 ?m/sec ? MV E:A ratio ?2.5 ?ratio ? LV E:e' septal ratio0.2 ?ratio ? Tricuspid Valve ?Value ?Units (Range) ? TR Vmax ? 2.1 ?m/sec ? TR peak gradient ?17.1 ? mmHg ? RAP ? 3 ?mmHg ? RVSP ?20 ? mmHg ? Pulmonic Valve/Qp:Qs ?Value ?Units (Range) ? WI end-diastolic Vma0.7 ?m/sec ? PA end-diastolic pre5 ?mmHg ? Measurement Trending Name ? 05/23/2015 ? LV EDV BP ?96.6411 LVIDd (2D) ? 4.68528800 LV ESV BP ?36.1077 LVIDs (2D) ? 2.0323760 LA ESV BP (A/L) ?44.5252 Wall Motion: Segment Name ?Rest ? Base-Anteroseptal ?? Normal ? Base-Anterior ? Normal ? Base-Anterolateral ??Normal ? Base-Posterolateral Normal ? Base-Inferior ? Normal ? Base-Inferoseptal ?? Normal ? Mid-Anteroseptal ?Normal ? Mid-Anterior ?Normal ? Mid-Anterolateral ?? Normal ? Mid-Posterolateral ??Normal ? Mid-Inferior ?Normal ? Mid-Inferoseptal ?Normal ? [place]-Septal ? Normal ? [place]-Anterior ? Normal ? [place]-Lateral ?Normal ? [place]-Inferior ? Normal ? [place]-Tip ?Normal ? This report has been electronically signed by: Jasson Pascal MD ? 05/23/2015 16:35:52 Images reviewed and interpretation verified [facility] Cardiac Ultrasound Laboratory Procedure Note Jasson Pascal MD - 05/23/2015 Procedure: Transthoracic Echocardiogram Patient: MAINOR DUENAS(Age): 1990(25y) Med Rec#: [id number] Sex: F Site Loc: [facility] Ht / Wt: 175.3(cm)/68(kg Pt. Loc: Echo Lab BSA: 1.83 Study Date: 05/23/2015 Pt. Type: Outpatient Tape: Referring: Thang Isidro Reading: Jasson Pascal ([id number]) Hooker Machine Tender: Ashlie Valdez Diagnosis: CPT Codes: *Echo Full (69131) *Spectral Doppler (51416) *Color Doppler (45087) Indication: Syncope Rhythm: Sinus BP: 112/71 SUMMARY: [...] MV E-wave Vmax 1.1 m/sec MV deceleration [id number] msec MV A-wave Vmax 0.4 m/sec MV E:A ratio 2.5 ratio LV E:e' septal ratio0.2 ratio Tricuspid Valve Value Units (Range) TR Vmax 2.1 m/sec TR peak gradient 17.1 mmHg RAP 3 mmHg RVSP 20 mmHg Pulmonic Valve/Qp:Qs Value Units (Range) WI end-diastolic Vma0.7 m/sec PA end-diastolic pre5 mmHg Measurement Trending Name 05/23/2015 LV EDV BP 96.6411 LVIDd (2D) 4.68530454 LV ESV BP 36.1077 LVIDs (2D) 2.1850222 LA ESV BP (A/L) 44.5252 Wall Motion: Segment Name Rest Base-Anteroseptal Normal Base-Anterior Normal Base-Anterolateral Normal Base-Posterolateral Normal Base-Inferior Normal Base-Inferoseptal Normal Mid-Anteroseptal Normal Mid-Anterior Normal Mid-Anterolateral Normal Mid-Posterolateral Normal Mid-Inferior Normal Mid-Inferoseptal Normal [place]-Septal Normal [place]-Anterior Normal Kimball-Lateral Normal Kimball-Inferior Normal [place]-Tip Normal This report has been electronically signed by: Jasson Pascal MD 05/23/2015 16:35:52 Images reviewed and interpretation verified [facility] Cardiac Ultrasound Laboratory Thang Isidro MD ECHO ORDERABLES * EKG 12 Lead (05/23/2015 2:10 PM EDT) Ventricular rate 64 BPM MUSE SYSTEM Atrial Rate 64 BPM MUSE SYSTEM P-R Interval 132 ms MUSE SYSTEM QRS Duration 78 ms MUSE SYSTEM Q-T Interval 374 ms MUSE SYSTEM QTC Calculated (Bezet) 385 ms MUSE SYSTEM Calculated P [place] 41 degrees MUSE SYSTEM Calculated R [place] 64 degrees MUSE SYSTEM Calculated T [place] 43 degrees MUSE SYSTEM INTERPRETATION Normal sinus rhythm Normal ECG No previous ECGs available Confirmed by MD CARMONA ALAN ([id number]) on 05/23/2015 5:34:02 PM MUSE SYSTEM 05/23/2015 2:10 PM EDT 05/23/2015 5:34 PM EDT Thang Isidro MD ECG ORDERABLES MUSE SYSTEM documented in this encounter Visit Diagnoses Diagnosis Syncope, unspecified Syncope, unspecified documented in this encounter Care Teams Winding Lathe Operator Relationship Specialty Start Date End Date Chacha Jensen MD [address] [place] [address] PCP - General 12/03/14 07/22/20 documented as of this encounter
--- OUTSIDE RECORDS SUMMARY | 2024-06-30 00:41 | XMS_ITS | Encounter Summary ---
Author Organization [facility] [place] [address] Care Team Providers Care Carbon Capture Power Plant Operator Name Role Phone Jh Guillaume MD Primary Care Provider [phone] Encounter Details Date Type Department Care Team (Late st Contact Info) Description 08/22/2012 Telephone [place] [address] Meghan Chilel MD [facility] DR [place] [address] Social History Tobacco Use Types Packs/Day Years [...] alone documented in this encounter Care Teams Carbon Capture Power Plant Operator Relationship Specialty Start Date End Date Jh Guillaume MD [address] [place] [address] PCP - General 08/01/12 09/28/12 documented as of this encounter
--- OUTSIDE RECORDS SUMMARY | 2024-06-30 00:41 | XMS_ITS | Encounter Summary ---
Author [facility] [place] [address] Care Team Providers Care Metal Door Assembler Name Role Phone Cornelia Hernandez Primary Care Provider [phone] Encounter Details Date Type Department Care Team (Late st Contact Info) Description 01/23/2021 Orders [place] [address] Brook Michelle DPM [facility] [place] [address] Social History Tobacco Use Types Packs/Day Years [...] on filedocumented in this encounter Care Teams Metal Door Assembler Relationship Specialty Start Date End Date Cornelia Hernandez PA [address] [place] [address] PCP - General Family Medicine 07/23/20 06/03/23 documented as of this encounter
--- OUTSIDE RECORDS SUMMARY | 2024-06-30 00:41 | XMS_ITS | Encounter Summary ---
Author Organization [facility] [place] [address] Care Team Providers Care Gunner'S Mate M Name Role Phone Cornelia Hernandez Primary Care Provider [phone] Reason for Visit * Reason Comments Plantar Warts Encounter Details Date Type Department Care Team (Late st Contact Info) Description 11/28/2020 4:00 PM EST Office Visit Podiatry at [facility] [place] [address] Brook Michelle DPM [facility] [place] [address] Metatarsalgia, left foot; Hyperkeratosis Social History Tobacco [...] Note Name: Lori Cruz Age:30 y.o. MR#: [id number] Date of Service: 11/28/2020 SUBJECTIVE: Lori Cruz [...] concerns or changes arise Brook Michelle DPM Capacity Planning Engineer, [facility] documented in this encounter Plan of Treatment Not on file documented as of this encounter Visit Diagnoses Diagnosis Metatarsalgia, left foot Hyperkeratosis Acquired keratoderma documented in this encounter Care Teams Gunner'S Mate M Relationship Specialty Start Date End Date Cornelia Hernandez PA [address] [address] PCP - General Family Medicine 07/23/20 06/03/23 documented as of this encounter
--- OUTSIDE RECORDS SUMMARY | 2024-06-30 00:41 | XMS_ITS | Encounter Summary ---
Author Organization [facility] [place] [address] Care Team Providers Care Fire Patrol Name Role Phone Sky Jensen MD Primary Care Provider Encounter Details Date Type Department Care Team (Late st Contact Info) Description 01/22/2015 [place] [address] Viviana Cooper, RN Social History Tobacco Use [...] level was normal. ThanksMaldonado Placed call to [facility] to let her know, no answer left message to call back. * Telephone Encounter - Viviana Cooper RN - 01/22/2015 8:37 AM EDT Message Viviana, I got her 17-OP results but not the potassium. Can you see if that got done? ThanksMaldonado Placed call to [facility], spoke with Lizet in lab who states that potassium was not done. Placed call to [facility] who states that she did not have [...] on filedocumented in this encounter Care Teams Fire Patrol Relationship Specialty Start Date End Date Sky Jensen MD [address] [place] [address] PCP - General 12/03/14 07/22/20 documented as of this encounter
--- OUTSIDE RECORDS SUMMARY | 2024-06-30 00:41 | XMS_ITS | Encounter Summary ---
Author Organization [facility] [place] [address] Care Team Providers Care Materials And Processes Manager Name Role Phone Dony Vu SHAVON Primary Care Provide r Reason for Visit * Reason Comments Burn Encounter Details Date Type Department Care Team (Late st Contact Info) Description 09/29/2012 11:11 AM EST - 09/29/2012 12:37 PM EST [place] [address] [facility] DR EMER[place] [address] Burn Discharge Disposition: Home Social History Tobacco [...] AFTER YOUR VISIT TO THE EMERGENCY ROOM (ESTONIAN) documented in this encounter Medications at Time [...] [facility] Allergies Allergen Reactions ??? [...] PCP: Dony Vu APRN PCP phone number: [phone] cc: fish to forearms HPI: Ms. Cruz [...] to her leg previously. She was at [facility] for a GI procedure this AM and [...] adenoidectomy, appendectomy FamHx: noncontributory SocHx: Lives in [place], [place] with her parents. Unemployed, subs in [...] degree documented in this encounter Care Teams Materials And Processes Manager Relationship Specialty Start Date End Date Dony Vu APRN [address] [place] [address] PCP - General 09/29/12 12/02/14 documented as of this encounter
--- OUTSIDE RECORDS SUMMARY | 2024-06-30 00:41 | XMS_ITS | Encounter Summary ---
Author Organization [facility] [place] [address] Care Team Providers Care Market Gardener Name Role Phone Dony Vu APRN Primary Care Provide r Reason for Visit * Reason Onset Date Comments Other 09/21/2012 Question RE Anxi olytic Before OEM Encounter Details Date Type Department Care Team (Late st Contact Info) Description 09/21/2012 Telephone [place] [phone] Ana Jamison Other (Question RE Anxiolytic Before [...] to Lidocaine/Benzocaine. Dr. James's ofc told her [facility] should order this, but [...] on filedocumented in this encounter Care Teams Market Gardener Relationship Specialty Start Date End Date Dony Vu APRN [address] [place] [address] PCP - General 09/29/12 12/02/14 documented as of this encounter
--- OUTSIDE RECORDS SUMMARY | 2024-06-30 00:41 | XMS_ITS | Encounter Summary ---
Author Organization [facility] [place] [address] Care Team Providers Care Arresting Gear Operator Name Role Phone Jh Guillaume MD Primary Care Provider [phone] Encounter Details Date Type Department Care Team (Late st Contact Info) Description 08/01/2012 12:30 PM EST - 08/01/2012 1:00 PM EST Surgery [place] [address] Avtar Zavala MD [facility] [place] [address] UPPER GI ENDOSCOPY Social History Tobacco Use [...] - 08/01/2012 12:59 PM EST Please call [phone], before 5pm with problems, questions or concerns, after 5pm call the Hospital at [phone] and ask to speak to the Sales Communications Manager personal fitness trainer and the zipper machine operator will contactthat person for you. [...] GI ENDOSCOPY: WHAT TO EXPECT AT HOME (LEBANESE) documented in this encounter Medications at Time [...] GI ENDOSCOPY (08/01/2012 12:36 PM EST) Pathologist [facility] UPPER GI ENDOSCOPY [facility] Endoscopy Patient Name: Gaines Cruz ? Procedure Date: 08/01/2012 12:36 PM ? Date of : 1990 ? Age: 22 ? Order #: [id number] ? Procedure: ? Upper GI endoscopy Indications: ? Heartburn, For Gonzalez placement Providers: ? Avtar Zavala MD, Frances Lazaro, ? FRANKLIN, Yara Daley, Databases Computer Consultant Referring MD: ?Dony Vu MD Medicines: ? [...] sedation) documented in this encounter Care Teams Arresting Gear Operator Relationship Specialty Start Date End Date Jh Guillaume MD [address] [place] [address] PCP - General 08/01/12 09/28/12 documented as of this encounter
--- OUTSIDE RECORDS SUMMARY | 2024-06-30 00:41 | XMS_ITS | Encounter Summary ---
Author Organization [facility] [place] [address] Care Team Providers Care Cherry Dipper Name Role Phone Sky Jensen MD Primary Care Provider [phone] Reason for Visit * Auth/Cert Specialty Diagnoses / Procedures Referred By Rashmi salomon Referred To Contact Procedures observation Referral ID Status Reason Start Date Expiration Date Visits Re quested Visits Authorized [id number] 1 1 Encounter Details Date Type Department Care Team (Latest Contact Info) Description 10/10/2015 7:14 AM EST - 10/10/2015 12:14 PM [facility] Hospital Encounter Non-Invasive [place] [address] Thang Isidro MD [facility] [place] [address] Syncope, unspecified syncope type Discharge Disposition: Home [...] mL/hr documented in this encounter Care Teams Cherry Dipper Relationship Specialty Start Date End Date Sky Jensen MD [address] [place] [address] PCP - General 12/03/14 07/22/20 documented as of this encounter
--- OUTSIDE RECORDS SUMMARY | 2024-06-30 00:41 | XMS_ITS | Encounter Summary ---
Author Organization [facility] [place] [address] Care Team Providers Care Retail Store Assistant Name Role Phone Cornelia Hernandez Primary Care Provider [phone] Reason for Visit * Reason Comments Plantar Warts Encounter Details Date Type Department Care Team (Late st Contact Info) Description 04/24/2021 4:00 PM EDT Office Visit Podiatry at [facility] [place] [address] Brook Michelle DPM [facility] [place] [place] [address] Pitted keratolysis; Metatarsalgia, left foot Social History [...] Note Name: Lori Cruz Age:31 y.o. MR#: [id number] Date of Service: 04/24/2021 SUBJECTIVE: Lori Cruz [...] constitutional symptoms reported. SH: long commute to [facility] Allergies Allergen Reactions ??? Fruit Extracts Anaphylaxis [...] arise or any worsening Brook Michelle DPM Refrigeration Technician, [facility] documented in this encounter Plan of Treatment Not on file documented as of this encounter Visit Diagnoses Diagnosis Pitted keratolysis Other specified erythematous condition Metatarsalgia, left foot documented in this encounter Care Teams Retail Store Assistant Relationship Specialty Start Date End Date Cornelia Hernandez PA [address] [place] [address] PCP - General Family Medicine 07/23/20 06/03/23 documented as of this encounter
--- OUTSIDE RECORDS SUMMARY | 2024-06-30 00:41 | XMS_ITS | Encounter Summary ---
[place] [address] Care Team Providers Care Electric Golf Cart Repairer Name Role Phone Cornelia Hernandez Primary Care Provider [phone] Encounter Details Date Type Department Care Team (Latest Contact Info) Description 07/25/2020 5:33 PM EST - 07/25/2020 11:59 PM EST Hospital [place] [address] Discharge Disposition: Home Social History Tobacco Use [...] EST) SARS-CoV-2 RNA Not Detected Not Detected [facility] Comment: This result should [...] on the instructions for use provided by [employer] and additional guidance provided by [facility] and FDA. Testing is performed in the Clinical Genomics and Advanced Technology Laboratory within the Department of Pathology and Laboratory Medicine at [facility], certified under the Clinical Laboratory Improvement Amendments [...] fact sheets at the following FDA website: https://www.fda.gov/medical-devices/uhkzvktxwoh-hmdisso-9016-xeuno-17-wgjxwvfws- use-a vqwdkojibaztd-hdekciq-pvppqll/evweh-wdiltqowljm-jaem SARS-CoV-2 RNA Source SITE TECHNICIAN Swab [facility] Nasopharyngeal swab (specimen) Other / Unknown 07/25/2020 10:26 AM EST 07/27/2020 5:01 AM EST Narrative Resulting Agency Comment Spec In Lab Rina Mccain CRYSTAL CALIBRATOR MOLECULAR ORDERABLES Performing Organization Address City/State/[facility] Co de Phone Number [facility] [place] [address] documented in this encounter Visit Diagnoses Not on filedocumented in this encounter Care Teams Electric Golf Cart Repairer Relationship Specialty Start Date End Date Cornelia Hernandez PA [address] [place] [address] PCP - General Family Medicine 07/23/20 06/03/23 documented as of this encounter
--- OUTSIDE RECORDS SUMMARY | 2024-06-30 00:41 | XMS_ITS | Encounter Summary ---
Author Organization [facility] [place] [address] Care Team Providers Care Rail Car Repairman Name Role Phone Sky Jensen MD Primary Care Provider [phone] Reason for Visit * Reason Comments Foot Problem calluses Encounter Details Date Type Department Care Team (Late st Contact Info) Description 07/22/2016 10:30 AM EDT Office [place] [address] Eneida Mast RN Callus Social History Tobacco [...] Mccall RN - 07/22/2016 10:30 AM EDT [facility] Initial Foot Clinic Note ?? Name: Lori William Age: 26 y.o.. MR#: [id number] ?? Date of Service: 07/22/2016 ?? Chief [...] callosities documented in this encounter Care Teams Rail Car Repairman Relationship Specialty Start Date End Date Sky Jensen MD [address] [place] [address] PCP - General 12/03/14 07/22/20 documented as of this encounter
--- OUTSIDE RECORDS SUMMARY | 2024-06-30 00:41 | XMS_ITS | Encounter Summary ---
Author Organization [facility] Address [facility] [place] [address] Care Team Providers Care Inside Sales Account Executive Name Role Phone Sky Jensen MD Primary Care Provider Encounter Details Date Type Department Care Team (Late st Contact Info) Description 10/23/2015 Telephone Cardiology at [address] [address] Jonatan Priec MD [facility] [place] [address] Social History Tobacco Use Types Packs/Day Years [...] back trauma from this. [facility], with no significant [...] Price MD Cardiac Electrophysiology Fellow Physician Pager [phone] Daytime documented in this encounter Plan of Treatment Not on file documented as of this encounter Visit Diagnoses Not on filedocumented in this encounter Care Teams Inside Sales Account Executive Relationship Specialty Start Date End Date Sky Jensen MD [address] [place] [address] PCP - General 12/03/14 07/22/20 documented as of this encounter
--- OUTSIDE RECORDS SUMMARY | 2024-06-30 00:41 | XMS_ITS | Encounter Summary ---
Author Organization [facility] [place] [address] Care Team Providers Care Ramp Boss Name Role Phone Sky Jensen MD Primary Care Provider Reason for Referral * Consultation (Routine) - Closed Specialty Diagnoses / Procedures Referred By Rashmi aslomon Referred To Contact Gastroenterology Diagnoses Other gastritis without bleeding Other specified postprocedural states Acquired absence of other specified parts of digestive tract Acquired absence of both cervix and uterus Sandie Pnada DO [address] [place] [address] [address] [place] [address] [facility] [address] [place] [phone] Referral ID Status Reason Start Date Expiration Date V isits Requested Visits Authorized [id number] Closed Consult, Test & Treat PCP Updated and/or Approved 06/04/2023 06/03/2024 6 6 Encounter Details Date Type Department Care Team (Late st Contact Info) Description 06/04/2023 Transcribe Orders eDH Incoming Referrals [phone] Sandie Panda DO [address] [place] [address] [address] [place], [place] [id number] RUQ abdominal pain; Biliary dyskinesia; Acute epigastric [...] vomiting documented in this encounter Care Teams Ramp Boss Relationship Specialty Start Date End Date Sky Jensen MD [address] [place] [address] PCP - General General Internal Medicine 06/04/23 documented as of this encounter
--- OUTSIDE RECORDS SUMMARY | 2024-06-30 00:41 | XMS_ITS | Encounter Summary ---
Author Organization [facility] [place] [address] Care Team Providers Care Veterans Employment Representative Name Role Phone Jh Guillaume MD Primary Care Provider [phone] Encounter Details Date Type Department Care Team (Late st Contact Info) Description 08/01/2012 12:30 PM EST [facility] [place] [address] CLINIC, Celeste Finley, acute care assistant Disposition: Home Social History Tobacco Use Types [...] on filedocumented in this encounter Care Teams Veterans Employment Representative Relationship Specialty Start Date End Date Jh Guillaume MD [address] [place] [address] PCP - General 08/01/12 09/28/12 documented as of this encounter
--- OUTSIDE RECORDS SUMMARY | 2024-06-30 00:41 | XMS_ITS | Encounter Summary ---
Author Organization [facility] [place] [address] Care Team Providers Care Acting Section Chief Name Role Phone Sky Jensen MD Primary Care Provider [phone] Reason for Visit * Reason Comments Hirsutism New Patient Encounter Details Date Type Department Care Team (Latest Contact Info) Description 12/18/2014 2:00 PM EDT Office Visit Endocrinology at 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
--- OUTSIDE RECORDS SUMMARY | 2024-06-30 00:41 | XMS_ITS | Encounter Summary ---
Author Organization [facility] [place] [address] Care Team Providers Care Mail List Processor Name Role Phone Chacha Jensen MD Primary Care Provider [phone] Reason for Visit * Auth/Cert Specialty Diagnoses / Procedures Referred By Rashmi salomon Referred To Contact Procedures observation Referral ID Status Reason Start Date Expiration Date Visits Re quested Visits Authorized [id number] 1 1 Encounter Details Date Type Department Care Team (Late st Contact Info) Description 10/10/2015 11:30 AM EST Office Visit Cardiology at [address] [address] Jonatan Price MD [facility] [address] Vasovagal syncope Social History Tobacco Use Types [...] her to have this test done at [facility], so I may review the strips. 3) Typically, we recommend that patients be evaluated for adrenal insufficiency (usually with cosyntropin stimulation testing) and pheochromocytoma (with serum or urine metanephrines). 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 I encouraged the patient to follow up [...] Price MD Cardiac Electrophysiology Fellow Physician Pager [phone] Daytime documented in this encounter Plan of Treatment Not on file documented as of this encounter Results * Stress Test, Exercise (Treadmill) (11/01/2015 9:44 AM EST) Anatomical Region Laterality Modality Other Thang Isidro MD CARDIAC SERVICES ORD ERABLES * Ziopatch (10/10/2015 12:57 PM EST) Anatomical Region Laterality Modality Other Narrative 10/30/2015 12:14 PM EST [facility] ?ZIO PATCH ??REPORT Ordering Provider: ??Jonatan Price [...] collapse documented in this encounter Care Teams Mail List Processor Relationship Specialty Start Date End Date Chacha Jensen MD [address] [place] [address] PCP - General 12/03/14 07/22/20 documented as of this encounter
--- OUTSIDE RECORDS SUMMARY | 2024-06-30 00:41 | XMS_ITS | Encounter Summary ---
Author Organization [facility] Address [facility] [place] [address] Care Team Providers Care Senior Product Development Scientist Name Role Phone Sky Jensen MD Primary Care Provider Reason for Visit * Auth/Cert Specialty Diagnoses / Procedures Referred By Rashmi salomon Referred To Contact Procedures observation Referral ID Status Reason Start Date Expiration Date Visits Re quested Visits Authorized [id number] 1 1 Encounter Details Date Type Department Care Team (Latest Contact Info) Description 10/10/2015 12:15 PM EST - 10/10/2015 11:59 PM EST Hospital Encounter Non-Invasive [place] [address] hTang Isidro MD [facility] [place] [address] Vasovagal syncope Discharge Disposition: Home Social History [...] Modality Other Narrative 10/30/2015 12:14 PM EST [facility] ?ZIO PATCH ??REPORT Ordering Provider: ??Jonatan [...] collapse documented in this encounter Care Teams Senior Product Development Scientist Relationship Specialty Start Date End Date Sky Jensen MD [address] [place] [address] PCP - General 12/03/14 07/22/20 documented as of this encounter
--- OUTSIDE RECORDS SUMMARY | 2024-06-30 00:41 | XMS_ITS | Encounter Summary ---
Author Organization [facility] Address [facility] [place] [address] Care Team Providers Care Cable Maker Name Role Phone Sky Jensen MD Primary Care Provider Encounter Details Date Type Department Care Team (Late st Contact Info) Description 11/04/2015 Telephone Cardiology at [address] [address] Jonatan Price MD [facility] [place] [address] Social History Tobacco Use Types Packs/Day Years [...] on filedocumented in this encounter Care Teams Cable Maker Relationship Specialty Start Date End Date Sky Jensen MD [address] [place] [address] PCP - General 12/03/14 07/22/20 documented as of this encounter
--- OUTSIDE RECORDS SUMMARY | 2024-06-30 00:41 | XMS_ITS | Encounter Summary ---
Author Organization [facility] Address [facility] [place] [address] Care Team Providers Care Steam Shovel Operator Name Role Phone Cornelia Hernandez Primary Care Provider [phone] Reason for Visit * Reason Comments Skin Lesion * Consultation (Routine) - Closed Specialty Diagnoses / Procedures Referred By Rashmi salomon Referred To Contact Dermatology Diagnoses Plantar wart Cornelia Hernandez PA [address] [place] [address] [facility] Dermatology [address] [place] [address] Referral ID Status Reason Start Date Expiration Date V isits Requested Visits Authorized [id number] Closed Consult, Test & Treat Connection Center PCP Updated and/or Approved 10/28/2020 10/28/2021 6 6 Encounter Details Date Type Department Care Team (Late st Contact Info) Description 11/21/2020 3:20 PM EST Office Visit Dermatology at [facility] [address] [place] [phone] Yosef De Los Santos MD [facility] [place] [address] Clavus; Verruca vulgaris Social History Tobacco Use [...] vinegar solution - recommend following up with Car Rental Agency Manager - Patients with recurrent or recalcitrant corns may require referral to a cash applications analyst or orthopedic surgeon for surgical correction of bony abnormalities. - discussed these are not warts and that management should focus on pressure offloading, chemical exfoliation with hydroxyacid products, and mechanical exfoliation with a pumice stone. Recommended she speak with her cash applications analyst about orthotics or other offloading devices. RTC: [...] by Yosef Taylor MD Resident in Dermatology [facility] Patient seen in conjunction with staff contact lens inspector: Melo Escobar MD Department of Dermatology [facility] * Melo Escobar MD - 11/21/2020 [...] unspecified documented in this encounter Care Teams Steam Shovel Operator Relationship Specialty Start Date End Date Cornelia Hernandez PA [address] [address] PCP - General Family Medicine 07/23/20 06/03/23 documented as of this encounter
--- OUTSIDE RECORDS SUMMARY | 2024-06-30 00:41 | XMS_ITS | Encounter Summary ---
Author Organization [facility] [place] [address] Care Team Providers Care Block Sawyer Name Role Phone Sky Jensen MD Primary Care Provider Encounter Details Date Type Department Care Team (Late st Contact Info) Description 08/22/2015 Orders Only Cardiology at [address] [address] Jonatan Price MD [facility] [place] [address] Syncope, unspecified syncope type Social History Tobacco [...] type documented in this encounter Care Teams Block Sawyer Relationship Specialty Start Date End Date Sky Jensen MD [address] [place] [address] PCP - General 12/03/14 07/22/20 documented as of this encounter
--- OUTSIDE RECORDS SUMMARY | 2024-06-30 00:41 | XMS_ITS | Encounter Summary ---
[place] [address] Care Team Providers Care Director Cost Name Role Phone Dony Vu Genny SANDS Primary Care Provide r Reason for Visit * Reason Onset Date Comments Other 09/21/2012 PRE-MOTILITY NOT E Encounter Details Date Type Department Care Team (Late st Contact Info) Description 09/21/2012 [place] [phone] Ana Jamison Other (PRE-MOTILITY NOTE) Social History [...] allergic. Pt states [facility] told her [facility] should provide anxiolytic. I called [facility]MD[facility] of[facility], [...] filedocumented in this encounter Care Teams Director Cost Relationship Specialty Start Date End Date Dony Vu APRN [address] [place] [address] PCP - General 09/29/12 12/02/14 documented as of this encounter
--- OUTSIDE RECORDS SUMMARY | 2024-06-30 00:41 | XMS_ITS | Encounter Summary ---
Author Organization [facility] Address [facility] [place] [address] Care Team Providers Care Arboriculture Instructor Name Role Phone Sky Jensen MD Primary Care Provider [phone] Reason for Visit * Consultation (Routine) - Closed Specialty Diagnoses / Procedures Referred By Contava salomon Referred To Contact Gastroenterology Diagnoses Other gastritis without bleeding Other specified postprocedural states Acquired absence of other specified parts of digestive tract Acquired absence of both cervix and uterus Sandie Panda, DO [address] [place] [address] [facility] [address] [place] [address] Referral ID Status Reason Start Date Expiration Date V isits Requested Visits Authorized [id number] Closed Consult, Test & Treat PCP Updated and/or Approved 06/04/2023 06/03/2024 6 6 Encounter Details Date Type Department Care Team (Late st Contact Info) Description 07/29/2023 4:00 PM EST Office [place] [phone] Elvie Osorio MD [facility] [address] Diarrhea, unspecified type (Primary Dx); RUQ pain [...] Osorio MD - 07/29/2023 4:00 PM EST [facility] Division of Gastroenterology and Hepatology Outpatient Consultation [...] this as prn, usually 4 x weekly. Binger does not like to take medications and [...] ENDOSCOPY performed by JOSE DANIEL MURO at [facility] ENDOSCOPY Hysterectomy 2022 Social History: reports that she has quit smoking. Her smoking use included cigarettes. She has a 5.00 pack-year smoking history. She has never used smokeless tobacco. She reports current alcohol useof about 3.0 standard drinks of alcohol per week. She reports that she does not use drugs. 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 In [employer]. No kids. Enjoys snowboarding, hiking Family [...] months 60 minutes spent in chart review, [id number] time and coordination of care with the patient today. Elvie Osorio MD Gastroenterology and Hepatology [place] [id number] P: [phone] F: [phone] CC Sky Jensen MD [address] [place] [id number] documented in this encounter Plan of Treatment Not on file documented as of this encounter Visit Diagnoses Diagnosis Diarrhea, unspecified type- Primary RUQ pain Abdominal pain, right upper quadrant documented in this encounter Care Teams Arboriculture Instructor Relationship Specialty Start Date End Date Sky Jensen MD [address] [place] [id number] PCP - General General Internal Medicine 06/04/23 documented as of this encounter
--- OUTSIDE RECORDS SUMMARY | 2024-06-30 00:41 | XMS_ITS | Encounter Summary ---
Author Organization [facility] [place] [address] Care Team Providers Care Radio Program Checker Name Role Phone Cornelia Hernandez Primary Care Provider [phone] Reason for Visit * Reason Comments Plantar Warts Encounter Details Date Type Department Care Team (Latest Contact Info) Description 01/23/2021 4:00 PM EDT Office [facility] [place] [address] Brook Michelle DPM [facility] [place] [address] Metatarsalgia of both feet; Hyperkeratosis Social History [...] Note Name: Lori Cruz Age:30 y.o. MR#: [id number] Date of Service: 01/23/2021 SUBJECTIVE: Lori Cruz [...] Gatherings with Friends and Family: ??? Attends Faith Services: ??? Active Member of Clubs or [...] if any concerns arise Brook Michelle DPM [employer] Operator, [facility] documented in this encounter Plan of Treatment Not on file documented as of this encounter Visit Diagnoses Diagnosis Metatarsalgia of both feet Enthesopathy of ankle and tarsus, unspecified Hyperkeratosis Acquired keratoderma documented in this encounter Care Teams Radio Program Checker Relationship Specialty Start Date End Date Cornelia Hernandez PA [address] [address] PCP - General Family Medicine 07/23/20 06/03/23 documented as of this encounter
--- OUTSIDE RECORDS SUMMARY | 2024-06-30 00:41 | XMS_ITS | Encounter Summary ---
[place] [address] Care Team Providers Care Die Cutting Machine Operator Name Role Phone Cornelia Hernandez Primary Care Provider [phone] Encounter Details Date Type Department Care Team (Late st Contact Info) Description 06/10/2021 Telephone [place] [address] Brook Michelle DPM [facility] [place] [address] Social History Tobacco Use Types Packs/Day Years [...] on filedocumented in this encounter Care Teams Die Cutting Machine Operator Relationship Specialty Start Date End Date Cornelia Hernandez PA [address] [place] [address] PCP - General Family Medicine 07/23/20 06/03/23 documented as of this encounter
--- OUTSIDE RECORDS SUMMARY | 2024-06-30 00:41 | XMS_ITS | Encounter Summary ---
Author Organization [facility] [place] [address] Care Team Providers Care Feather Drying Machine Operator Name Role Phone Dony Vu APRN Primary Care Provide r Encounter Details Date Type Department Care Team (Late st Contact Info) Description 02/16/2014 2:00 PM EDT Office Visit Obstetrics [place] [address] Tonny Vergara MD [facility] OBSTETRICS [place] [address] Pelvic pain syndrome (Primary Dx) Discharge Disposition: [...] 35 minutes of that were spent in [id number] discussion. documented in this encounter Miscellaneous Notes * Miscellaneous - Provider, Yael - 02/23/2014 9:15 PM EDT documented in this encounter Plan of Treatment Not on file documented as of this encounter Visit Diagnoses Diagnosis Pelvic pain syndrome- Primary Pelvic congestion syndrome documented in this encounter Care Teams Feather Drying Machine Operator Relationship Specialty Start Date End Date Dony Vu, COSMETOLOGIST [address] [place] [address] PCP - General 09/29/12 12/02/14 documented as of this encounter
--- NOTE | 2024-06-30 07:45 | DI.MRI_ITS ---
Exam(s) MR LUMBAR SPINE WO EXAM: MR LUMBAR SPINE WO CLINICAL HISTORY: back pain with radiation to right leg. TECHNIQUE: Multiplanar multisequence MRI of the Lumbar spine was performed. COMPARISON: No plain films of the lumbar spine available at the time of this MRI interpretation. FINDINGS: Five lumbar vertebrae are presumed. Conus medullaris is at normal level. There is no evidence of conus mass nor subjacent clumping of in trathecal nerve roots to suggest arachnoiditis. The distal thecal sac appears unremarkable.There is no evidence of Tarlov intrasacral cysts nor other significant findings within the sacral canal Bones:There are no fractures nor ominous osseous lesions in the lumbar vertebral bodies and visualize d sacrum. With respect to the individual levels... T12-L1: Unremarkable L1-2: Normal disc height and signal. No disc herniation nor central canal stenosis.No foraminal steno sis L2-3: Normal disc height. No disc herniation nor central canal stenosis.No foraminal stenosis.No face t arthropathy. L3-4: Normal disc height. No disc herniation or central canal stenosis.No foraminal stenosis.No face t arthropathy. L4-5: Normal disc height and signal. There is a small lateral left annular protrusion at level the f oot exiting left neural but not large enough to be causing foraminal stenosis. This protrusion exten ds posteriorly 2.5 mm and is approximately 1 cm wide. There is no central canal stenosis at this lev el. No foraminal stenosis on the opposite-right side. L5-S1: Normal disc height and signal. No disc herniation or central canal stenosis. No foraminal st enosis. Soft tissues: paraspinal soft tissues appear unremarkable. IMPRESSION: 1. At the L4-5 level there is a small lateral left disc protrusion at the level of the exiting left neural foramen. There does not appear to be significant foraminal stenosis at this level. Also no c entral spinal canal stenosis. 2. Other levels appear unremarkable. DATA REPOSITORY:
--- NOTE | 2024-06-30 07:45 | DI.MRI_ITS ---
Exam(s) MR THORACIC SPINE WO EXAM: MR THORACIC SPINE WO CLINICAL HISTORY: back pain,m54.9 TECHNIQUE: Multiplanar multisequence MRI of the thoracic spine was performed without intravenous con trast. COMPARISON: No prior imaging of the thoracic spine for comparison. FINDINGS: OSSEOUS: There are no acute appearing thoracic vertebral fractures. There are no ominous osseous les ions in the thoracic vertebrae. THORACIC SPINAL CORD: There is no abnormal signal in the cervical spinal cord and no evidence of foca l cord atrophy nor focal cord swelling. There is no evidence of syringomyelia nor significant spinal cord dysraphism. The position and appearance of the conus medullaris is normal. SIGNIFICANT INDIVIDUAL LEVEL FINDINGS: None PARASPINAL TISSUES: No significant masses nor fluid collections evident. IMPRESSION: 1. No significant findings on this MRI scan of the thoracic spinal column. DATA REPOSITORY:
== END 2024-06-30 00:55 ==
LOC: DI 00:35
PROVIDERS: PCP Internal Medicine; Visit Provider Physician Assistant
DX: M54.9 Dorsalgia, unspecified (principal); M51.86 Other intervertebral disc disorders, lumbar region
CPT/HCPCS: 72146; 72148

== ENCOUNTER 2025-03-14 21:39 | Outpatient (REF) | payer OTHER, SELFPAY ==
[2025-03-16 13:31] LABS: Bacterial Vaginosis (BV) Positive (Negative); Candida glabrata Negative (Negative); Candida species group Negative (Negative); Chlamydia Result Negative (Negative); GC Result Negative (Negative); Trichomonas vaginalis Negative (Negative)
== END 2025-03-14 21:40 | disposition home or self-care (01) ==
LOC: NCHCN 21:39
PROVIDERS: PCP Internal Medicine; Visit Provider Physician Assistant
DX: R30.0 Dysuria (principal); R82.89 Other abnormal findings on cytological and histological examination of urine
CPT/HCPCS: 81513; 87481; 87491; 87591; 87661; 87086; 87480; 87510; 87660

== ENCOUNTER 2025-09-11 12:37 | Outpatient (REF) | payer OTHER, SELFPAY | END 2025-09-11 12:38 | disposition home or self-care (01) | LOC: NCHCN 12:37 | PROVIDERS: PCP Internal Medicine; Visit Provider Physician Assistant | DX: F90.0 Attention-deficit hyperactivity disorder, predominantly inattentive type (principal) | CPT/HCPCS: 80324 ==